=== PATIENT | female | born 1940 | race Caucasian/White ===

== ENCOUNTER → 2017-08-28 13:45 | Outpatient (CLI) | payer MEDICARE, OTHER, SELFPAY ==
--- NOTE | 2017-08-28 13:49 | BI_ITS ---
MAMMOGRAPHY - BILATERAL DIAGNOSTIC REASON FOR EXAM: Female, 77 years old. Right breast lump at 12:00 position of the breast. PERTINENT HISTORY: Sisters with breast cancer. Grandmother with breast cancer. TECHNIQUE: Digital bilateral breast kerry (3D mammographic acquisition) in the CC and MLO projections. 2-D mediolateral oblique (MLO) and craniocaudad (CC) views of both breasts were obtained. CAD: Full Field Digital Mammography with Computer Added Detection was performed. COMPARISON: Comparison is made with prior examination dated September 20, 2016. FINDINGS: Breast Composition: There are scattered areas of fibroglandular density. There are no dominant masses or suspicious calcifications. Multiple bilateral skin keratosis are seen. No other significant abnormalities are identified. There has been no significant change since the prior study. BI/DIAG MAMM W/CAD, BILAT IMPRESSION: Stable bilateral diagnostic mammogram. With the patient's history of a palpable abnormality in the right breast, targeted ultrasound is recommended. ASSESSMENT CATEGORY: BIRADS Category 0: Incomplete. Need additional imaging evaluation. A letter regarding these results will be sent to the patient by the facility within 30 days. Approximately 10% of breast cancers are not detected by mammography. A normal mammogram should not delay biopsy of a clinically suspicious abnormality. Electronically Signed: Freddy Page MD at 12:34 EDT Tel [phone], Service support ,
--- NOTE | 2017-08-28 13:49 | US_ITS ---
STUDY: ULTRASOUND BREAST - RIGHT REASON FOR EXAM: Female, 77 years old. Palpable lump in the right breast. TECHNIQUE: Axial and longitudinal images of the RIGHT breast were performed with a high resolution ultrasound transducer. COMPARISON: Comparison is made with prior mammogram done earlier in the day. FINDINGS: RIGHT Breast: The periareolar region of the right breast was examined by ultrasound. This corresponds to the palpable abnormality. There is a homogeneous fibroglandular tissue. No solid or cystic mass lesion is seen. US/Breast Limited Unilateral IMPRESSION: Unremarkable sonographic examination. ASSESSMENT CATEGORY: BIRADS Category 1: Negative. A letter regarding these results will be sent to the patient by the facility within 30 days. Electronically Signed: Freddy Page MD at 15:32 EDT Tel [phone], Service support ,
== END ==
PROVIDERS: Family Provider Internal Medicine; PCP Internal Medicine; Visit Provider Nurse Practitioner Women's Health
DX: N63.13 Unspecified lump in the right breast, lower outer quadrant (principal)
CPT/HCPCS: 76642; 77062; 77066; G0279

== ENCOUNTER 2018-05-14 18:18 | Observation (INO) | payer MEDICARE, OTHER, SELFPAY ==
[2018-05-14] VITALS (14 sets, daily range): BP systolic 133–202; BP diastolic 59–113; PULSE 68–89; RESP 13–24; TEMP 36.3–36.9; O2SAT 98–100; BMI 24.3; BMI 24.7; BMI 24.8
--- NOTE | 2018-05-14 18:29 | CT_ITS ---
STUDY: CT BRAIN WITHOUT CONTRAST REASON FOR EXAM: Female, 78 years old. Stroke RADIATION DOSAGE (If Supplied By Facility): CTDIvol = ( 44.99 ) mGy, DLP = ( 779.24 ) mGycm TECHNIQUE: Transaxial CT imaging of the brain was performed without administration of intravenous contrast material. Individualized dose optimization techniques were used for this CT. COMPARISON: Previous study of 09/16/2014 FINDINGS: Normal soft tissue structures. Normal calvarium. There is mild cerebral atrophy with widening of the extra-axial spaces and ventricular dilatation. Normal white matter tracts of the cerebral hemispheres. Normal basal ganglia and thalami. Normal brainstem. Normal cerebellum. There is no intracranial hemorrhage. There are no findings of an acute ischemic infarction. Normal visualized paranasal sinuses. CT/Brain/Head without Contrast IMPRESSION: Chronic involutional changes of the brain. There is no evidence of new infarct or intracranial hemorrhage. N.B. : The above information has been verbally conveyed by Kirby Andrews MD to Ruthie Carcamo MD, MD, on 05/14/2018 18:49:22 (ET). Electronically Signed: Kirby Andrews MD at 18:44 EST , Service support ,
--- NOTE | 2018-05-14 18:34 | EKG12_ITS ---
Test Reason : STROKE Blood Pressure : / mmHG Vent. Rate : 072 BPM Atrial Rate : 072 BPM P-R Int : 184 ms QRS Dur : 090 ms QT Int : 382 ms P-R-T Axes : 074 069 061 degrees QTc Int : 418 ms Normal sinus rhythm Normal ECG Confirmed by DEMETRIA BARNARD, BRITTON ([id number]), supervising film or videotape editor ANABEL ARVIZU ([id number]) on 05/16/2018 2:30:03 PM Referred By: CAYETANO Confirmed By:BRITTON AUGUSTIN MD
[2018-05-14 18:36] LABS: Bedside Glucose 83 mg/dL (70-110)
--- NOTE | 2018-05-14 18:45 | RAD_ITS ---
STUDY: X-RAY CHEST REASON FOR EXAM: Female, 78 years old. SOB. TECHNIQUE: Portable chest. COMPARISON: 12/20/2013. FINDINGS: Mild fibrotic changes are noted in the lung bases. The lungs are otherwise clear. There is no demonstrated pleural abnormality. Normal size heart. Normal mediastinum and shy. Normal visualized pulmonary arteries. There is atherosclerotic calcification of the aortic arch. There is a mild thoracolumbar scoliosis. Soft tissues and bony structures are otherwise unremarkable. RAD/Chest 1 View IMPRESSION: No acute process. Electronically Signed: Devora Snell MD at 19:31 EST Tel , Service support ,
--- NOTE | 2018-05-14 18:50 | CT_ITS ---
STUDY: CTA OF THE BRAIN REASON FOR EXAM: Female, 78 years old. Dizziness. Expressive aphasia since 5:00 PM. RADIATION DOSAGE (If Supplied By Facility): CTDIvol = ( 17.97 ) mGy, DLP = ( 596.29 ) mGycm TECHNIQUE: CT angiography was performed with a multi-detector CT scanner. Data acquisition was obtained from the skull base through the vertex following intravenous administration of ml of . MIP images were reconstructed from the axial data set. Post-processing of the angiographic images was performed, with multiplanar reformation and 3D reconstruction. Individualized dose optimization techniques were used for this CT. COMPARISON: CT of the brain, May 14, 2018. FINDINGS: Normal bilateral petrous carotid arteries. Normal right cavernous carotid artery with a normal supraclinoid bifurcation. Normal left cavernous carotid artery with a normal supraclinoid bifurcation. Normal right A1 segments of the anterior cerebral artery. Normal left A1 segments of the anterior cerebral artery. Normal intact anterior communicating artery (ACOM). Normal bilateral A2 segments of the anterior cerebral arteries. Normal right M1 and M2 segments of the middle cerebral arteries, with a normal M1 bifurcation. Normal left M1 and M2 segments of the middle cerebral arteries, with a normal M1 bifurcation. Normal right posterior communicating artery (PCOM). Normal left posterior communicating artery (PCOM). Normal basilar artery with a normal basilar bifurcation. The visualized bilateral superior cerebellar (SCA) arteries are normal. Normal bilateral P1, P2 and visualized P3 segments of the posterior cerebral arteries. There is no demonstrated aneurysm of the [place]. There is no demonstrated abnormality of the visualized brain. CT/CTA Head W/WO Contrast IMPRESSION: Normal [place] without a demonstrated aneurysm or hemodynamically significant stenosis. Electronically Signed: Alber Frederick DO at 19:43 EST Tel [phone], Service support ,
--- NOTE | 2018-05-14 18:50 | CT_ITS ---
STUDY: CTA NECK WITH AND WITHOUT CONTRAST REASON FOR EXAM: Female, 78 years old. Expressive dysphasia since 700 hours. Dizziness. RADIATION DOSAGE (If Supplied By Facility): CTDIvol = ( 17.97 ) mGy, DLP = ( 596.29 ) mGycm TECHNIQUE: CT angiography with multi-detector data acquisition was performed from the aortic arch to the skull base prior to and after intravenous administration of 100 ml of Isovue 370 contrast. MIP images were reconstructed from the axial data set. Post-processing of the angiographic images was performed, with multiplanar reformation and 3D reconstruction. Individualized dose optimization techniques were used for this CT. COMPARISON: CTA of the head, May 14, 2018. FINDINGS: AORTIC ARCH: There is atherosclerotic calcific plaque formation of the aortic arch and great vessels arising from the aortic arch, without a hemodynamically significant stenosis. There is a normal origin of the brachiocephalic, left common carotid, and left subclavian arteries. RIGHT CAROTID ARTERIES: Normal right common carotid artery (CCA). Normal right common carotid bulb. Normal origin of the right internal carotid (ICA) artery without a hemodynamically significant stenosis. Normal visualized cervical portion of the right internal carotid artery. Normal origin of the right external carotid artery (ECA). LEFT CAROTID ARTERIES: Normal left common carotid artery (CCA). Normal left common carotid bulb. Normal origin of the left internal carotid (ICA) artery without a hemodynamically significant stenosis. Normal visualized cervical portion of the left internal carotid artery. Normal origin of the left external carotid artery (ECA). VERTEBRAL ARTERIES: There is enhancement within the bilateral vertebral arteries with a small right vertebral artery, and a dominant left vertebral artery. Diffuse degenerative changes of the cervical spine. CT/CTA Neck W/WO Contrast IMPRESSION: Normal bilateral cervical carotid and vertebral arteries. Electronically Signed: Alber Frederick DO at 19:47 EST Tel [phone], Service support ,
--- NOTE | 2018-05-14 18:52 | ED.VISSUMM ---
- ER Visit Summary Date of Service: 05/14/18 Chief Complaint: Difficulty speaking History of Present Illness: The patient is a 78 F presenting stating that she had difficulty with speech. This occurred starting at 5 PM. It was witnessed by family. She states she had trouble getting words out, she states she knew what she wanted to say but could not get the words out. She had no slurred speech. She denies numbness or weakness. She states initially she had vision changes which have now resolved. She denies chest pain or shortness of breath. Physical Examination: Vitals are stable. Patient is afebrile. Alert no acute distress. HEENT exam is unremarkable. Neck is supple. Lungs are clear and equal bilaterally. Heart is regular rate and rhythm. Abdomen is soft nontender nondistended. Extremities are unremarkable. Skin is warm and dry. No focal neurologic deficit. NIH 0 Remainder of exam is unremarkable. Emergency Department Course and Treatment: Stroke team was activated on patient arrival. She was taken immediately to CT head. When she returned back to the ED her symptoms had resolved. Her NIH is 0. CT head shows no acute process. EKG is sinus rate of 72 with no acute ischemic changes. Discussed with Dr. Burnett. He recommends CTA head and neck. CTA head and neck are unremarkable. CBC, chemistries unremarkable. INR 1.0. Troponin is negative. Will discuss with the hospitalist for observation. Disposition: Observation Impression: TIA This note was generated with [employer] dictation software. It may contain incorrect words, spelling, and punctuation that were not noted in review of the chart prior to signing ED Disposition - Plan for ED Patient: Chief Complaint: Neuro S/Sx Referrals: Zane Potter MD [Primary Care Provider] -
[2018-05-14 18:53] LABS: Absolute Lymphocyte Count 1.29 X10^3/ul (0.83-4.51); Absolute Neutrophil Count 3.6 X10^3/uL (2.0-7.7); Basophil# 0.04 X10^3/uL; Basophil% 0.7 % (0-1); Eosinophil# 0.16 X10^3/uL; Eosinophils% 2.9 % (0-5); Hematocrit 37.2 % (37-47); Hemoglobin 12.2 g/dl (12.0-15.0); Lymphocyte # 1.29 X10^3/ul (4.0); Lymphocyte % 23.5 % (19-41); Mean Corp Hgb Conc 32.8 g/gl (32-36); Mean Corpuscular Hgb 31.9 pg (27.0-32.0); Mean Corpuscular Volume 97.4 fL (81-99); Mean Platelet Vol. 9.3 fl (6.2-12.0); Monocyte# 0.41 X10^3/uL; Monocyte% 7.5 % (0-10); Neutrophil # 3.59 X10^3/uL (2.7-7.7); Neutrophil % 65.4 % (47-70); Platelet Count 208 K/mm3 (150-450); RBC Distribution Width CV 14.5 % (11.6-14.6); RBC Distribution Width SD 51.6 fl (35.1-43.9); Red Blood Count 3.82 M/mm3 (4.2-5.4); White Blood Count 5.5 K/mm3 (4.4-11.0)
[2018-05-14 18:54] LABS: POSITIVE COUNT NO; POSITIVE DIFFERENTIAL NO; POSITIVE MORPHOLOGY NO
[2018-05-14 19:05] LABS: Anion Gap 9 (5-15); BUN 25 mg/dL (7-18); BUN/Creat Ratio 30.2 RATIO (10-20); Calcium,Total 8.9 mg/dL (8.5-10.1); Chloride 104 mmol/L (98-107); Creatinine, Serum 0.83 mg/dL (0.55-1.02); EST Glomerular Filtration Rate 71 mL/min (>60); Est Glom Filt Rate - Afr Amer 86 mL/min (>60); Estimated Creatinine Clearance 48.24 ml/min; Glucose 83 mg/dL (74-106); Potassium 3.7 mmol/L (3.5-5.1); Sodium Level 138 mmol/L (136-145)
[2018-05-14 19:13] LABS: Prothrombin Time (Protime)PT. 12.7 SECONDS (11.7-14.9)
[2018-05-14 19:14] LABS: Partial Thromboplast Time 26.4 Seconds (24.1-36.2)
[2018-05-14] MEDS: Aspirin 325 MG Tablet PO (20:15)
--- NOTE | 2018-05-14 20:36 | PCM.HP.STD ---
Problem List (1) Stroke-like symptoms Status: Acute History of Present Illness Date of Admission: 05/14/18 Chief Complaint: Blurry vision and difficulty with talking The patient is a 78 year old F with a significant history of hypothyroidism; rheumatoid arthritis; and BPPV who presented because of blurry vision that started about 4 hours prior to presentation. Associated with her symptoms was difficulty talking. At emergency department as a stroke alert was called. When the patient returned from CT her NIH scale was 0. She denies any focal weakness. At the emergency department CT and CTA of the head and neck was done. Emergency department doctor talked to a neurologist. Per emergency department doctor the neurologist wanted patient to be started on Plavix. 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) Benign positional vertigo (Chronic) Rheumatoid arthritis (Chronic) Medical History: Medical History (Last Reviewed 05/14/18 @ 22:36 by Stefan Dey MD) Stress incontinence (Chronic) N39.3 Hypothyroidism (Chronic) E03.9 Allergies ANTIVIRAL Adverse Reaction (Uncoded 09/16/14 12:23) severe diarrhea SEVERE DIARRHEA Home Medications: Ambulatory Orders Medication Instructions Recorded Oxybutynin [Ditropan] 5 mg PO DAILY 12/20/13 Levothyroxine [Synthroid] 100 mcg PO SUTUWEFRSA 12/21/13 abatacept (with maltose) 250 mg 250 mg IV QMONTH ea 08/26/17 intravenous solution meloxicam 7.5 mg tablet 7.5 mg PO QHS 08/26/17 Cholecalciferol (VIT D3) [Vitamin 1,000 unit PO QHS 05/14/18 D] Leucovorin Calcium 5 mg PO MO 05/14/18 Levothyroxine Sodium 150 mcg PO MOTH 05/14/18 Methotrexate Sodium [Methotrexate] 15 mg PO AHUJA 05/14/18 Multivitamin with Minerals 1 tab PO QHS 05/14/18 [Multiple Vitamin] Surgical History: Surgical History (Last Reviewed 05/14/18 @ 22:36 by Stefan Dey MD) S/P breast biopsy Z98.890 bilateral S/P cholecystectomy Z90.49 S/P colon resection Z90.49 S/P hernia repair Z98.890, Z87.19 S/P spinal surgery Z98.890 x1 to remove cyst, disc repair x1 Status post left hip replacement Z96.642 Status post left knee replacement Z96.652 Surgical History: - Psychiatric History: No pertinent psych hx 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 Denies: Head Aches, Sinus Congestion, Sinus Drainage Cardiovascular: Denies: Chest Pain, Palpitations Respiratory: Denies: Cough, Shortness of breath at rest, Sputum production Gastrointestinal: Denies: Abdominal Pain, Nausea, Vomiting Genitourinary: Denies: Dysuria Musculoskeletal: Denies: Joint Pain, Joint Tenderness Skin: Denies: Rash, Wounds Neurological: Reports: Blurred vision. Denies: Focal weakness, Numbness, Tingling Psychiatric: Denies: Anxiety, Depression, Homicidal Ideations, Suicidal Ideations Hematologic/ Lymphatic: Denies: Easy Bruising, Easy Bleeding VTE Information - Inpt Only VTE Present on Admission: No VTE Mechan Device Prophylaxis: None VTE Pharm Prophylaxis ordered?: Yes Patient Problems: Active and Suspected Problems (Last Reviewed 05/14/18 @ 22:36 by Stefan Dey MD) Stroke-like symptoms (Acute) - Physical Exam General: Alert, Oriented x3, Cooperative HEENT: Atraumatic, PERRLA, EOMI, Normocephalic Neck: Supple, No JVD, Negative Carotid Bruits Lungs: Clear to auscultation, Normal air movement Cardiovascular: Regular rate, No murmurs Abdomen: Bowel Sounds Present, Soft, Non Tender Extremities: No edema, Capillary Refill Less than 3 Seconds Skin: No rashes, No breakdown Musculoskeletal: No Tenderness to Palpation of Joints or Extremities Neurological: Cranial nerves II-XII grossly intact Psych/Mental Status: Normal Affect, Appropriate Vital Signs Temp Pulse Resp BP Pulse Ox 98.3 F 83 16 185/83 H 100 05/14/18 18:34 05/14/18 20:00 05/14/18 20:00 05/14/18 20:00 05/14/18 20:00 Oxygen Flow Rate (L/min) 2 Oxygen Delivery Method Nasal Cannula Weight: 64.2 kg Body Mass Index (BMI) 24.3 Finger Stick Blood Glucose 83 Laboratory Tests Past 24 Hrs 05/14/18 05/14/18 05/14/18 18:30 18:30 18:30 WBC 5.5 RBC 3.82 L Hgb 12.2 Hct 37.2 MCV 97.4 MCH 31.9 MCHC 32.8 RDW 14.5 RDW Differential 51.6 H Plt Count 208 MPV 9.3 Immature Gran % (Auto) 0.000 Neut % (Auto) 65.4 Lymph % (Auto) 23.5 Antelope % (Auto) 7.5 Eos % (Auto) 2.9 Baso % (Auto) 0.7 Absolute Neuts (auto) 3.6 Absolute Lymphs (auto) 1.29 Total Counted Not Reportable PT 12.7 INR 1.0 APTT 26.4 Sodium 138 Potassium 3.7 Chloride 104 Carbon Dioxide 25.0 Anion Gap 9 BUN 25 H Creatinine 0.83 Estim Creat Clear Calc 48.24 Est GFR (MDRD) Af Amer 86 Est GFR (MDRD) Non-Af 71 BUN/Creatinine Ratio 30.2 H Glucose 83 Calcium 8.9 Troponin I < 0.015 POC Glucose 05/14/18 18:32 POC Glucose 83 Assessment/Plan All Active Problems (Last Reviewed 05/14/18 @ 22:36 by Stefan Dey MD) Stroke-like symptoms (Acute) The patient is a 78 year old F with a significant history of hypothyroidism; rheumatoid arthritis; and BPPV who presented because of blurry vision that started about 4 hours prior to presentation and with a negative CT/CTA of head and neck; and an NIH scale of [address]/CTA head and neck consistent with stroke-like symptoms. Strokelike symptoms NINDS NIH Scale was 0 CT/CTA of the head was unremarkable. Her glucose on admission was 83. Physical therapy, occupational therapy and speech therapy to work with patient. N.p.o. until bedside swallow eval. Patient received aspirin 324 mg at emergency department. Daily aspirin. Per neurologist recommendation will start patient on Plavix. High intensity statin ordered Lipid profile and A1c ordered. Permissive hypertension. Control blood pressure with labetalol for systolic blood pressure of more than 220 or diastolic blood pressure of more than 120. -Permissive HTN for 24 hrs, aba therapist goal BP < 120/80 mmHg . MRI of the brain ordered Echocardiogram ordered. Elevated blood pressure without diagnosis of hypertension. High systolic blood pressure is 202; and a higher diastolic blood pressure is 105. Patient denies any history of hypertension. Her elevated blood pressure is likely due to anxiety or from autonomic regulation to perfuse ischemic penumbra. Labetalol as needed to maintain blood pressure and parameters stated above. Hypothyroidism Synthroid continued Rheumatoid arthritis Methotrexate and leucovorin continued. Stress incontinence Oxybutynin continued DVT prophylaxis Heparin subcutaneous ordered. Code Visit OBSV E&M: 16917 Initial observation care L3
[2018-05-14 23:12] LABS: Hemoglobin A1c 5.2 % (4.2-6.3)
[2018-05-14] MEDS: Atorvastatin Calcium 80 MG Tablet PO (23:28)
[2018-05-14] MEDS: Heparin Injection (Vial) 5,000 UNIT/ML VIAL 5000 UNIT SC (23:28)
[2018-05-15] VITALS (7 sets, daily range): BP systolic 125–145; BP diastolic 52–63; PULSE 61–73; RESP 16–18; TEMP 36.7–36.8; O2SAT 96–99; BMI 24.7
[2018-05-15] MEDS: 0.9% NaCl Peripheral Flush Adult/Peds IV (06:30)
[2018-05-15] MEDS: Levothyroxine 150 MCG Tablet PO (06:30)
[2018-05-15 07:09] LABS: Anion Gap 8 (5-15); BUN 18 mg/dL (7-18); BUN/Creat Ratio 26.1 RATIO (10-20); Calcium,Total 8.6 mg/dL (8.5-10.1); Chloride 105 mmol/L (98-107); Cholesterol 148 mg/dL (200); Creatinine, Serum 0.69 mg/dL (0.55-1.02); EST Glomerular Filtration Rate 87 mL/min (>60); Est Glom Filt Rate - Afr Amer 106 mL/min (>60); Estimated Creatinine Clearance 38.35 ml/min; Glucose 86 mg/dL (74-106); High Density Lipoprotein 53 mg/dL; Sodium Level 141 mmol/L (136-145); Triglycerides 35 mg/dL; Very Low Density Lipoprotein 7 mg/dL (5-40)
[2018-05-15] MEDS: LORazepam 2 MG/ML Syringe 1 MG IV ×2 (08:02→09:32)
[2018-05-15] MEDS: Clopidogrel Bisulfate 75 MG Tablet PO (08:04)
[2018-05-15] MEDS: Aspirin 81 MG TAB.CHEW PO (08:04)
[2018-05-15] MEDS: Meloxicam 7.5 MG Tablet PO (08:04)
[2018-05-15] MEDS: Multivitamins,Ther W-Minerals Tablet 1 TABLET PO (08:04)
[2018-05-15] MEDS: Heparin Injection (Vial) 5,000 UNIT/ML VIAL 5000 UNIT SC (08:05)
--- NOTE | 2018-05-15 08:05 | MRI_ITS ---
STUDY: MRI BRAIN WITHOUT CONTRAST REASON FOR EXAM: Female, 78 years old. Aphasia for one and a half hours. TECHNIQUE: Standardized multiplanar fat and water weighted pulse sequences were obtained. COMPARISON: CT of the head dated May 14, 2018. FINDINGS: There is mild cerebral atrophy with widening of the extra-axial spaces and ventricular dilatation. Normal white matter tracts of the supratentorial brain. There is confluent periventricular hyperintensity cloaking the lateral ventricles, consistent with periventricular leukoaraiosis. There is no evidence for recent intracranial ischemia or other cause of cytotoxic edema on diffusion weighted imaging (DWI). Normal T2* images of the brain without demonstrated susceptibility artifact. There is no demonstrated hemosiderin stain. Normal bilateral basal ganglia. Normal thalami. There is no extra-axial fluid accumulation. Normal flow voids within the major intracranial circulation suggesting patency by spin echo criteria. There is ectatic tortuosity of the cavernous carotid arteries. There is increased CSF within the sella and flattening of the pituitary gland consistent with an empty sellar syndrome. Normal infundibular stalk, hypothalamus, and optic chiasm. Normal tectal plate and pineal gland. Normal midbrain, deb and medulla. Normal cerebellum. There are large basal cisterns. Normal bilateral temporal bones. Normal bilateral internal auditory canals. There are bilateral ocular lens implants with otherwise normal intraorbital contents. Normal visualized paranasal sinuses. Normal calvarium and skull base. Normal visualized soft tissue structures. Normal visualized upper cervical spine. MRI/Brain without Contrast IMPRESSION: 1. Mild involutional changes of the brain, as described above. 2. No MR evidence for acute infarct. Electronically Signed: Karmen Brown MD at 12:00 EST , Service support ,
--- NOTE | 2018-05-15 14:14 | PCM.CONS.GEN ---
Problem List (1) TIA (transient ischemic attack) Status: Acute Reason for Consult Date of Consultation: 05/15/18 Reason for Consultation: Probable TIA History of Present Illness: The patient is a 78 year old F with PMH RA, hypothyroidism, BPPV admitted with speech disturbances, blurred vision and facial droop. Per patient yesterday (05/14/18) around 5 PM patient started having vision disturbances, difficulty in getting her words out, family noticed some facial droop on the left side, was brought to the ED, no focal motor weakness, symptoms improved after she got the CT head done, NIHSS was 0 in the ED, symptoms lasted for about 11/2 hr, patient denies any ALMONTE, visual disturbances, focal motor weakness, dizziness or sensory loss. Lives with , denies any falls, does not need any assistance for her ADLs, and does drive. Does not take ASA at baseline. [] 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) Benign positional vertigo (Chronic) Rheumatoid arthritis (Chronic) Medical History: Medical History (Last Reviewed 05/14/18 @ 22:36 by Stefan Dey MD) Stress incontinence (Chronic) N39.3 Hypothyroidism (Chronic) E03.9 Allergies ANTIVIRAL Adverse Reaction (Uncoded 09/16/14 12:23) severe diarrhea SEVERE DIARRHEA Home Medications: Ambulatory Orders Medication Instructions Recorded Oxybutynin [Ditropan] 5 mg PO DAILY 12/20/13 Levothyroxine [Synthroid] 100 mcg PO SUTUWEFRSA 12/21/13 abatacept (with maltose) 250 mg 250 mg IV QMONTH ea 08/26/17 intravenous solution meloxicam 7.5 mg tablet 7.5 mg PO QHS 08/26/17 Cholecalciferol (VIT D3) [Vitamin 1,000 unit PO QHS 05/14/18 D] Leucovorin Calcium 5 mg PO MO 05/14/18 Levothyroxine Sodium 150 mcg PO MOTH 05/14/18 Methotrexate Sodium [Methotrexate] 15 mg PO AHUJA 05/14/18 Multivitamin with Minerals 1 tab PO QHS 05/14/18 [Multiple Vitamin] Surgical History: Surgical History (Last Reviewed 05/14/18 @ 22:36 by Stefan Dey MD) S/P breast biopsy Z98.890 bilateral S/P cholecystectomy Z90.49 S/P colon resection Z90.49 S/P hernia repair Z98.890, Z87.19 S/P spinal surgery Z98.890 x1 to remove cyst, disc repair x1 Status post left hip replacement Z96.642 Status post left knee replacement Z96.652 Surgical History: - Psychiatric History: No pertinent psych hx 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: No pertinent NEWSPAPER MANAGING EDITOR history Lives: Spouse/ Significant Other Smoking Status: Never smoker Tobacco Use: Non-smoker Alcohol: Occasional - Drink a glass of 1-2/day on weekends Drugs: None - *Family History Maternal Family History: Family History (Last Reviewed 05/14/18 @ 22:36 by Stefan Dey MD) Sister Breast cancer Heart disease Father Heart disease History Items: Heart Disease Review of Systems Constitutional: Reports: - - complete ROS negative except as documented in HPI, - Patient Problems: Active and Suspected Problems (Last Reviewed 05/14/18 @ 22:36 by Stefan Dey MD) Stroke-like symptoms (Acute) TIA (transient ischemic attack) (Acute) - Physical Exam General: Alert HEENT: Normocephalic Neck: Supple Lungs: Normal air movement Cardiovascular: Normal S1, Normal S2 Abdomen: Bowel Sounds Present Extremities: No cyanosis Neurological: - - consious, alert, AoAx 3, CN 2-12 grossly intact, power 5/5 all 4 extremities, no sensory loss, no cerebellar signs, gait deferred, Reflexes + B/L B/S/T/K/A. NIHSS 0 at present, mRS 0 at baseline Psych/Mental Status: Normal Affect Vital Signs Temp Pulse Resp BP Pulse Ox 98.3 F 66 18 139/56 H 96 05/15/18 10:25 05/15/18 11:05 05/15/18 10:25 05/15/18 10:25 05/15/18 11:48 Oxygen Flow Rate (L/min) 2 Oxygen Delivery Method Room Air Weight: 63.4 kg Body Mass Index (BMI) 24.7 Finger Stick Blood Glucose 83 Intake and Output for Last 24 Hours 05/13/18 05/14/18 05/15/18 23:59 23:59 23:59 Intake Total 60 / 60 480 / 480 Balance 60 / 60 480 / 480 Laboratory Tests Past 24 Hrs 05/14/18 05/14/18 05/14/18 18:30 18:30 18:30 WBC 5.5 RBC 3.82 L Hgb 12.2 Hct 37.2 MCV 97.4 MCH 31.9 MCHC 32.8 RDW 14.5 RDW Differential 51.6 H Plt Count 208 MPV 9.3 Immature Gran % (Auto) 0.000 Neut % (Auto) 65.4 Lymph % (Auto) 23.5 [place] % (Auto) 7.5 Eos % (Auto) 2.9 Baso % (Auto) 0.7 Absolute Neuts (auto) 3.6 Absolute Lymphs (auto) 1.29 Total Counted Not Reportable PT 12.7 INR 1.0 APTT 26.4 Sodium 138 Potassium 3.7 Chloride 104 Carbon Dioxide 25.0 Anion Gap 9 BUN 25 H Creatinine 0.83 Estim Creat Clear Calc 48.24 Est GFR (MDRD) Af Amer 86 Est GFR (MDRD) Non-Af 71 BUN/Creatinine Ratio 30.2 H Glucose 83 Hemoglobin A1c Calcium 8.9 Troponin I < 0.015 Triglycerides Cholesterol LDL Cholesterol VLDL Cholesterol HDL Cholesterol 05/14/18 05/15/18 18:30 05:50 WBC RBC Hgb Hct MCV MCH MCHC RDW RDW Differential Plt Count MPV Immature Gran % (Auto) Neut % (Auto) Lymph % (Auto) [place] % (Auto) Eos % (Auto) Baso % (Auto) Absolute Neuts (auto) Absolute Lymphs (auto) Total Counted PT INR APTT Sodium 141 Potassium 4.0 Chloride 105 Carbon Dioxide 28.0 Anion Gap 8 BUN 18 Creatinine 0.69 Estim Creat Clear Calc 38.35 Est GFR (MDRD) Af Amer 106 Est GFR (MDRD) Non-Af 87 BUN/Creatinine Ratio 26.1 H Glucose 86 Hemoglobin A1c 5.2 Calcium 8.6 Troponin I Triglycerides 35 Cholesterol 148 LDL Cholesterol 88 VLDL Cholesterol 7 HDL Cholesterol 53 POC Glucose 05/14/18 18:32 POC Glucose 83 Assessment/Plan All Active Problems (Last Reviewed 05/14/18 @ 22:36 by Stefan Dey MD) Stroke-like symptoms (Acute) TIA (transient ischemic attack) (Acute) The patient is a 78 year old F with PMH RA, hypothyroidism, BPPV admitted with speech disturbances, blurred vision and facial droop. Per patient yesterday (05/14/18) around 5 PM patient started having vision disturbances, difficulty in getting her words out, family noticed some facial droop on the left side, was brought to the ED, no focal motor weakness, symptoms improved after she got the CT head done, NIHSS was 0 in the ED, symptoms lasted for about 11/2 hr, patient denies any ALMONTE, visual disturbances, focal motor weakness, dizziness or sensory loss. Lives with , denies any falls, does not need any assistance for her ADLs, and does drive. Does not take ASA at baseline. Impression Probable TIA Plan -MRI brain -reported to show nothing acute -CTA head/neck-no hemodynamically significant stenosis or occlusion -ASA 81 mg PO once daily and Plavix 75 mg PO once daily. Dual AP for 3 weeks, then single AP. Bleeding risks discussed in detail -Lipitor 40 mg PO once daily q hs -TTE-EF 55-60%, normal LA size -LDL-88 -Bam1w-4.2 -Goal BP < 130/80 mmHg and goal Hba1c < 7% -Stroke risk factors discussed and stroke education provided -recommend 30 day event recorder -PT/OT and ST -GI/DVT prophylaxis -Fall precautions -Further medical management per hospitalist team -Follow up with Neurology in 4 weeks -Please call with questions if any -Thank you for allowing us to participate in patient's care and management Code Visit Inpatient E&M: [id number] Init Hosp L3
--- NOTE | 2018-05-15 14:46 | DCINST_ITS ---
- Discharge Diagnoses Current Active Problems: Current Active and Chronic Problems (Last Reviewed 05/14/18 @ 22:36 by Stefan Dey MD) Stroke-like symptoms (Acute) TIA (transient ischemic attack) (Acute) You will use the following diet at home:: No restrictions Discharge Activity: Return to Normal Activity Call your doctor if you observe: Shortness of breath, Dizziness, Fainting spells, Chest pain Allergies/Adverse Reactions: Allergies ANTIVIRAL Adverse Reaction (Uncoded 09/16/14 12:23) severe diarrhea SEVERE DIARRHEA Medications to take at Discharge Oxybutynin [Ditropan] 5 mg PO DAILY 12/20/13 Levothyroxine [Synthroid] 100 mcg PO SUTUWEFRSA 12/21/13 abatacept (with maltose) 250 mg intravenous solution 250 mg IV QMONTH ea 08/26/17 Cholecalciferol (VIT D3) [Vitamin D3] 1,000 unit PO QHS 05/14/18 Leucovorin Calcium 5 mg PO MO 05/14/18 Levothyroxine Sodium 150 mcg PO MOTH 05/14/18 Methotrexate Sodium [Methotrexate] 15 mg PO AHUJA 05/14/18 Multivitamin with Minerals [Multiple Vitamin] 1 tab PO QHS 05/14/18 Aspirin [Aspirin, Baby] 81 mg PO DAILY@0800 #30 tab.chew 05/15/18 Atorvastatin Calcium 40 mg PO QHS #30 tablet 05/15/18 Clopidogrel Bisulfate [Plavix] 75 mg PO DAILY #30 tablet 05/15/18 The following prescriptions were given: Aspirin [Aspirin, Baby] 81 mg PO DAILY@0800 #30 tab.chew Atorvastatin Calcium 40 mg PO QHS #30 tablet Clopidogrel Bisulfate [Plavix] 75 mg PO DAILY #30 tablet Orders to be completed after discharge: 30-Day Event Recorder [[facility]] Location: None Selected Primary Care Physician: Zane Potter MD [Primary Care Provider] - Please follow up with your Primary Care Physician in: 1 Week Test Results: Test results from this visit will be discussed in further detail at your follow- up appointment, if applicable. Please Follow Up With: Beto Burnett MD When: 4 Weeks Proposed Discharge Date: 05/15/18
--- NOTE | 2018-05-15 14:47 | PCM.DC.SUM ---
Discharge Date and Diagnosis Date of Admission: 05/14/18 Date of Discharge: 05/15/18 - Primary Discharge Diagnosis Active and Suspected Problems (Last Reviewed 05/14/18 @ 22:36 by Stefan Dey MD) 1. Probable TIA - Secondary Discharge Diagnosis Chronic Problems (Last Reviewed 05/14/18 @ 22:36 by Stefan Dey MD) Stress incontinence (Chronic) Hypothyroidism (Chronic) Osteoarthritis (arthritis due to wear and tear of joints) (Chronic) Benign positional vertigo (Chronic) Rheumatoid arthritis (Chronic) Hospital Course and Treatment Imaging Results: Diagnostic Data Brain CT 05/14/18 18:29 IMPRESSION: Chronic involutional changes of the brain. There is no evidence of new infarct or intracranial hemorrhage. N.B. : The above information has been verbally conveyed by Kirby Andrews MD to Ruthie Carcamo MD, MD, on 05/14/2018 18:49:22 (ET). Electronically Signed: Kirby Andrews MD at 18:44 EST , Service support , Chest X-Ray 05/14/18 18:45 IMPRESSION: No acute process. Electronically Signed: Devora Snell MD at 19:31 EST Tel , Service support , Head CTA 05/14/18 18:50 IMPRESSION: Normal [place] without a demonstrated aneurysm or hemodynamically significant stenosis. Electronically Signed: Alber Frederick DO at 19:43 EST Tel [phone], Service support , Neck CTA 05/14/18 18:50 IMPRESSION: Normal bilateral cervical carotid and vertebral arteries. Electronically Signed: Alber Frederick DO at 19:47 EST Tel [phone], Service support , Brain MRI 05/15/18 08:05 IMPRESSION: 1. Mild involutional changes of the brain, as described above. 2. No MR evidence for acute infarct. Electronically Signed: Karmen Brown MD at 12:00 EST , Service support , Dr. Burnett- Neurology Operations: None Procedures: 2-D Echocardiogram Summary of Care Provided: The patient is a 78 year old F admitted 05/14/18 due to blurred vision and speech difficulty. She has a past medical history of hypothyroidism, rheumatoid arthritis, BPPV, osteoarthritis, stress incontinence. MRI of brain negative for acute infarct. Neck CTA with normal bilateral carotid and vertebral arteries. Patient evaluated by neurology and suspected to have TIA. She will continue dual antiplatelet therapy with aspirin and Plavix for 3 weeks. Discontinue home meloxicam regimen. Atorvastatin 40 mg p.o. nightly. 30-day event recorder at discharge. Follow-up with neurology in 4 weeks. Echocardiogram showed an EF of 55-60%, mild mitral valve insufficiency, RVSP estimated to be 42-47 mmHg. Patient's visual and speech disturbances have resolved. Follow-up with primary care physician in 1 week. General: Alert, Oriented x3, Cooperative HEENT: Atraumatic, PERRLA, EOMI, Normocephalic Neck: Supple, No JVD, Negative Carotid Bruits Lungs: Clear to auscultation, Normal air movement Cardiovascular: Regular rate, regular rhythm, no murmurs Abdomen: Bowel Sounds Present, Soft, Non Tender Extremities: No edema, Capillary Refill Less than 3 Seconds Skin: No rashes, No breakdown Musculoskeletal: No Tenderness to Palpation of Joints or Extremities Neurological: Cranial nerves II-XII grossly intact Psych/Mental Status: Normal Affect, Appropriate Patient seen and examined prior to discharge. Physical assessment as noted above. Patient is stable for discharge with follow up recommendations as noted above. This patient was seen by RICHIE Coello under the supervision of Dr. Vicente. - Physical Exam Vital Signs Temp Pulse Resp BP Pulse Ox 98.3 F 66 18 139/56 H 96 05/15/18 10:25 05/15/18 11:05 05/15/18 10:25 05/15/18 10:25 05/15/18 11:48 Oxygen Flow Rate (L/min) 2 Oxygen Delivery Method Room Air Weight: 139 lb 12.369 oz Body Mass Index (BMI) 24.7 Finger Stick Blood Glucose 83 Intake and Output for Last 24 Hours 05/13/18 05/14/18 05/15/18 23:59 23:59 23:59 Intake Total 60 / 60 480 / 480 Balance 60 / 60 480 / 480 Laboratory Tests Past 24 Hrs 05/14/18 05/14/18 05/14/18 18:30 18:30 18:30 WBC 5.5 RBC 3.82 L Hgb 12.2 Hct 37.2 MCV 97.4 MCH 31.9 MCHC 32.8 RDW 14.5 RDW Differential 51.6 H Plt Count 208 MPV 9.3 Immature Gran % (Auto) 0.000 Neut % (Auto) 65.4 Lymph % (Auto) 23.5 [place] % (Auto) 7.5 Eos % (Auto) 2.9 Baso % (Auto) 0.7 Absolute Neuts (auto) 3.6 Absolute Lymphs (auto) 1.29 Total Counted Not Reportable PT 12.7 INR 1.0 APTT 26.4 Sodium 138 Potassium 3.7 Chloride 104 Carbon Dioxide 25.0 Anion Gap 9 BUN 25 H Creatinine 0.83 Estim Creat Clear Calc 48.24 Est GFR (MDRD) Af Amer 86 Est GFR (MDRD) Non-Af 71 BUN/Creatinine Ratio 30.2 H Glucose 83 Hemoglobin A1c Calcium 8.9 Troponin I < 0.015 Triglycerides Cholesterol LDL Cholesterol VLDL Cholesterol HDL Cholesterol 05/14/18 05/15/18 18:30 05:50 WBC RBC Hgb Hct MCV MCH MCHC RDW RDW Differential Plt Count MPV Immature Gran % (Auto) Neut % (Auto) Lymph % (Auto) [place] % (Auto) Eos % (Auto) Baso % (Auto) Absolute Neuts (auto) Absolute Lymphs (auto) Total Counted PT INR APTT Sodium 141 Potassium 4.0 Chloride 105 Carbon Dioxide 28.0 Anion Gap 8 BUN 18 Creatinine 0.69 Estim Creat Clear Calc 38.35 Est GFR (MDRD) Af Amer 106 Est GFR (MDRD) Non-Af 87 BUN/Creatinine Ratio 26.1 H Glucose 86 Hemoglobin A1c 5.2 Calcium 8.6 Troponin I Triglycerides 35 Cholesterol 148 LDL Cholesterol 88 VLDL Cholesterol 7 HDL Cholesterol 53 POC Glucose 05/14/18 18:32 POC Glucose 83 Discharge Diet: No Restrictions Discharge Activity: Return to Normal Activity Call your doctor if you observe: Shortness of breath, Dizziness, Fainting spells, Chest pain Home Medications: Medications to take at Discharge Oxybutynin [Ditropan] 5 mg PO DAILY 12/20/13 Levothyroxine [Synthroid] 100 mcg PO SUTUWEFRSA 12/21/13 abatacept (with maltose) 250 mg intravenous solution 250 mg IV QMONTH ea 08/26/17 Cholecalciferol (VIT D3) [Vitamin D3] 1,000 unit PO QHS 05/14/18 Leucovorin Calcium 5 mg PO MO 05/14/18 Levothyroxine Sodium 150 mcg PO MOTH 05/14/18 Methotrexate Sodium [Methotrexate] 15 mg PO AHUJA 05/14/18 Multivitamin with Minerals [Multiple Vitamin] 1 tab PO QHS 05/14/18 Aspirin [Aspirin, Baby] 81 mg PO DAILY@0800 #30 tab.chew 05/15/18 Atorvastatin Calcium 40 mg PO QHS #30 tablet 05/15/18 Clopidogrel Bisulfate [Plavix] 75 mg PO DAILY #30 tablet 05/15/18 Following Prescrptions Were Given to Patient: Aspirin [Aspirin, Baby] 81 mg PO DAILY@0800 #30 tab.chew Atorvastatin Calcium 40 mg PO QHS #30 tablet Clopidogrel Bisulfate [Plavix] 75 mg PO DAILY #30 tablet Other Amb Orders: 30-Day Event Recorder [[facility]] Location: None Selected Primary Care Physician: Zane Potter MD [Primary Care Provider] - Please follow up with your Primary Care Physician in: 1 Week Please Follow Up With: Beto Burnett MD When: 4 Weeks Disposition: Home Minutes spent on discharge:: 35 Patient Condition:: Stable Medical Necessity - Tobacco Use Smoking Status: Never smoker Tobacco Use: Non-smoker Meaningful Use Info Meaningful Use Diagnoses (Choose all that apply): None applicable
--- NOTE | 2018-05-15 14:58 | DS.PCM_ITS ---
Discharge Date and Diagnosis Date of Admission: 05/14/18 Date of Discharge: 05/15/18 - Primary Discharge Diagnosis Active and Suspected Problems (Last Reviewed 05/14/18 @ 22:36 by Stefan Dey MD) 1. Probable TIA - Secondary Discharge Diagnosis Chronic Problems (Last Reviewed 05/14/18 @ 22:36 by Stefan Dey MD) Stress incontinence (Chronic) Hypothyroidism (Chronic) Osteoarthritis (arthritis due to wear and tear of joints) (Chronic) Benign positional vertigo (Chronic) Rheumatoid arthritis (Chronic) Hospital Course and Treatment Imaging Results: Diagnostic Data Brain CT 05/14/18 18:29 IMPRESSION: Chronic involutional changes of the brain. There is no evidence of new infarct or intracranial hemorrhage. N.B. : The above information has been verbally conveyed by Kirby Andrews MD to Ruthie Carcamo MD, MD, on 05/14/2018 18:49:22 (ET). Electronically Signed: Kirby Andrews MD at 18:44 EST , Service support , Chest X-Ray 05/14/18 18:45 IMPRESSION: No acute process. Electronically Signed: Devora Snell MD at 19:31 EST Tel , Service support , Head CTA 05/14/18 18:50 IMPRESSION: Normal [place] without a demonstrated aneurysm or hemodynamically significant stenosis. Electronically Signed: Alber Frederick DO at 19:43 EST Tel [phone], Service support , Neck CTA 05/14/18 18:50 IMPRESSION: Normal bilateral cervical carotid and vertebral arteries. Electronically Signed: Alber Frederick DO at 19:47 EST Tel [phone], Service support , Brain MRI 05/15/18 08:05 IMPRESSION: 1. Mild involutional changes of the brain, as described above. 2. No MR evidence for acute infarct. Electronically Signed: Karmen Brown MD at 12:00 EST , Service support , Dr. Burnett- Neurology Operations: None Procedures: 2-D Echocardiogram Summary of Care Provided: The patient is a 78 year old F admitted 05/14/18 due to blurred vision and speech difficulty. She has a past medical history of hypothyroidism, rheumatoid arthritis, BPPV, osteoarthritis, stress incontinence. MRI of brain negative for acute infarct. Neck CTA with normal bilateral carotid and vertebral arteries. Patient evaluated by neurology and suspected to have TIA. She will continue dual antiplatelet therapy with aspirin and Plavix for 3 weeks. Discontinue home meloxicam regimen. Atorvastatin 40 mg p.o. nightly. 30-day event recorder at discharge. Follow-up with neurology in 4 weeks. Echocardiogram showed an EF of 55-60%, mild mitral valve insufficiency, RVSP estimated to be 42-47 mmHg. Patient's visual and speech disturbances have resolved. Follow-up with primary care physician in 1 week. General: Alert, Oriented x3, Cooperative HEENT: Atraumatic, PERRLA, EOMI, Normocephalic Neck: Supple, No JVD, Negative Carotid Bruits Lungs: Clear to auscultation, Normal air movement Cardiovascular: Regular rate, regular rhythm, no murmurs Abdomen: Bowel Sounds Present, Soft, Non Tender Extremities: No edema, Capillary Refill Less than 3 Seconds Skin: No rashes, No breakdown Musculoskeletal: No Tenderness to Palpation of Joints or Extremities Neurological: Cranial nerves II-XII grossly intact Psych/Mental Status: Normal Affect, Appropriate Patient seen and examined prior to discharge. Physical assessment as noted above. Patient is stable for discharge with follow up recommendations as noted above. This patient was seen by RICHIE Coello under the supervision of Dr. Vicente. - Physical Exam Vital Signs Temp Pulse Resp BP Pulse Ox 98.3 F 66 18 139/56 H 96 05/15/18 10:25 05/15/18 11:05 05/15/18 10:25 05/15/18 10:25 05/15/18 11:48 Oxygen Flow Rate (L/min) 2 Oxygen Delivery Method Room Air Weight: 139 lb 12.369 oz Body Mass Index (BMI) 24.7 Finger Stick Blood Glucose 83 Intake and Output for Last 24 Hours 05/13/18 05/14/18 05/15/18 23:59 23:59 23:59 Intake Total 60 / 60 480 / 480 Balance 60 / 60 480 / 480 Laboratory Tests Past 24 Hrs 05/14/18 05/14/18 05/14/18 18:30 18:30 18:30 WBC 5.5 RBC 3.82 L Hgb 12.2 Hct 37.2 MCV 97.4 MCH 31.9 MCHC 32.8 RDW 14.5 RDW Differential 51.6 H Plt Count 208 MPV 9.3 Immature Gran % (Auto) 0.000 Neut % (Auto) 65.4 Lymph % (Auto) 23.5 [place] % (Auto) 7.5 Eos % (Auto) 2.9 Baso % (Auto) 0.7 Absolute Neuts (auto) 3.6 Absolute Lymphs (auto) 1.29 Total Counted Not Reportable PT 12.7 INR 1.0 APTT 26.4 Sodium 138 Potassium 3.7 Chloride 104 Carbon Dioxide 25.0 Anion Gap 9 BUN 25 H Creatinine 0.83 Estim Creat Clear Calc 48.24 Est GFR (MDRD) Af Amer 86 Est GFR (MDRD) Non-Af 71 BUN/Creatinine Ratio 30.2 H Glucose 83 Hemoglobin A1c Calcium 8.9 Troponin I < 0.015 Triglycerides Cholesterol LDL Cholesterol VLDL Cholesterol HDL Cholesterol 05/14/18 05/15/18 18:30 05:50 WBC RBC Hgb Hct MCV MCH MCHC RDW RDW Differential Plt Count MPV Immature Gran % (Auto) Neut % (Auto) Lymph % (Auto) [place] % (Auto) Eos % (Auto) Baso % (Auto) Absolute Neuts (auto) Absolute Lymphs (auto) Total Counted PT INR APTT Sodium 141 Potassium 4.0 Chloride 105 Carbon Dioxide 28.0 Anion Gap 8 BUN 18 Creatinine 0.69 Estim Creat Clear Calc 38.35 Est GFR (MDRD) Af Amer 106 Est GFR (MDRD) Non-Af 87 BUN/Creatinine Ratio 26.1 H Glucose 86 Hemoglobin A1c 5.2 Calcium 8.6 Troponin I Triglycerides 35 Cholesterol 148 LDL Cholesterol 88 VLDL Cholesterol 7 HDL Cholesterol 53 POC Glucose 05/14/18 18:32 POC Glucose 83 Discharge Diet: No Restrictions Discharge Activity: Return to Normal Activity Call your doctor if you observe: Shortness of breath, Dizziness, Fainting spells, Chest pain Home Medications: Medications to take at Discharge Oxybutynin [Ditropan] 5 mg PO DAILY 12/20/13 Levothyroxine [Synthroid] 100 mcg PO SUTUWEFRSA 12/21/13 abatacept (with maltose) 250 mg intravenous solution 250 mg IV QMONTH ea 08/26/17 Cholecalciferol (VIT D3) [Vitamin D3] 1,000 unit PO QHS 05/14/18 Leucovorin Calcium 5 mg PO MO 05/14/18 Levothyroxine Sodium 150 mcg PO MOTH 05/14/18 Methotrexate Sodium [Methotrexate] 15 mg PO AHUJA 05/14/18 Multivitamin with Minerals [Multiple Vitamin] 1 tab PO QHS 05/14/18 Aspirin [Aspirin, Baby] 81 mg PO DAILY@0800 #30 tab.chew 05/15/18 Atorvastatin Calcium 40 mg PO QHS #30 tablet 05/15/18 Clopidogrel Bisulfate [Plavix] 75 mg PO DAILY #30 tablet 05/15/18 Following Prescrptions Were Given to Patient: Aspirin [Aspirin, Baby] 81 mg PO DAILY@0800 #30 tab.chew Atorvastatin Calcium 40 mg PO QHS #30 tablet Clopidogrel Bisulfate [Plavix] 75 mg PO DAILY #30 tablet Other Amb Orders: 30-Day Event Recorder [[facility]] Location: None Selected Primary Care Physician: Zane Potter MD [Primary Care Provider] - Please follow up with your Primary Care Physician in: 1 Week Please Follow Up With: Beto Burnett MD When: 4 Weeks Disposition: Home Minutes spent on discharge:: 35 Patient Condition:: Stable Medical Necessity - Tobacco Use Smoking Status: Never smoker Tobacco Use: Non-smoker Meaningful Use Info Meaningful Use Diagnoses (Choose all that apply): None applicable
== END 2018-05-15 15:18 | disposition home or self-care (01) ==
LOC: ED 18:37 → PCU 21:49
PROVIDERS: Admitting Provider Hospitalist; Emergency Provider Emergency Medicine; Family Provider Internal Medicine; PCP Internal Medicine; Visit Provider Internal Medicine
DX: G45.9 Transient cerebral ischemic attack, unspecified (principal); H53.8 Other visual disturbances; R47.01 Aphasia; E03.9 Hypothyroidism, unspecified; M06.9 Rheumatoid arthritis, unspecified; Z79.899 Other long term (current) drug therapy; H81.10 Benign paroxysmal vertigo, unspecified ear; N39.3 Stress incontinence (female) (male); M19.90 Unspecified osteoarthritis, unspecified site; R03.0 Elevated blood-pressure reading, without diagnosis of hypertension; R29.810 Facial weakness; R11.2 Nausea with vomiting, unspecified
CPT/HCPCS: 36415; 70450; 70496; 70498; 70551; 71045; 80048; 80061; 81001; 82962; 83036; 84484; 85025; 85610; 85730; 92522; 93005; 93306; 96361; 96372; 96374; 96375; 96376; 97802; 99218; 99285; J7030; Q9967; A4216; G0378; J2405

== ENCOUNTER 2018-05-15 19:42 | Emergency (ER) | payer MEDICARE, OTHER, SELFPAY ==
[2018-05-15 03:15] VITALS: BMI 24.7
[2018-05-15 19:43] VITALS: BP 164/75; PULSE 74; RESP 14; TEMP 36.6; O2SAT 97; BMI 24.8
--- NOTE | 2018-05-15 20:27 | EKG12_ITS ---
Test Reason : Blood Pressure : / mmHG Vent. Rate : 070 BPM Atrial Rate : 070 BPM P-R Int : 192 ms QRS Dur : 084 ms QT Int : 392 ms P-R-T Axes : 080 074 077 degrees QTc Int : 423 ms Normal sinus rhythm Normal ECG Confirmed by DEMETRIA BARNARD, BRITTON ([id number]), makeup editor ANABEL ARVIZU ([id number]) on 05/20/2018 10:42:23 AM Referred By: ALEJANDRA Confirmed By:BRITTON AUGUSTIN MD
[2018-05-15] MEDS: Ondansetron 4 MG/2 ML Vial IV (21:07)
[2018-05-15] MEDS: 0.9% Normal Saline 1,000 ML 1000 ML IV (21:07)
[2018-05-15 21:10] VITALS: BP 150/67; BP 160/81; BP 161/79; PULSE 72; PULSE 77; PULSE 81
[2018-05-15 21:26] LABS: Absolute Lymphocyte Count 0.33 X10^3/ul (0.83-4.51); Absolute Neutrophil Count 4.9 X10^3/uL (2.0-7.7); Basophil# 0.04 X10^3/uL; Basophil% 0.7 % (0-1); Eosinophil# 0.06 X10^3/uL; Hematocrit 39.6 % (37-47); Hemoglobin 12.9 g/dl (12.0-15.0); Lymphocyte # 0.33 X10^3/ul (4.0); Lymphocyte % 5.6 % (19-41); Mean Corp Hgb Conc 32.6 g/gl (32-36); Mean Corpuscular Hgb 31.7 pg (27.0-32.0); Mean Corpuscular Volume 97.3 fL (81-99); Mean Platelet Vol. 9.7 fl (6.2-12.0); Monocyte# 0.47 X10^3/uL; Neutrophil # 4.93 X10^3/uL (2.7-7.7); Platelet Count 199 K/mm3 (150-450); RBC Distribution Width CV 13.6 % (11.6-14.6); RBC Distribution Width SD 46.8 fl (35.1-43.9); Red Blood Count 4.07 M/mm3 (4.2-5.4); White Blood Count 5.9 K/mm3 (4.4-11.0)
[2018-05-15 21:29] LABS: Differential Indicated SCAN CRITERIA MET; POSITIVE COUNT NO; POSITIVE DIFFERENTIAL YES; POSITIVE MORPHOLOGY NO
[2018-05-15 21:36] LABS: Anion Gap 8 (5-15); BUN 15 mg/dL (7-18); Calcium,Total 8.6 mg/dL (8.5-10.1); Chloride 98 mmol/L (98-107); Creatinine, Serum 0.58 mg/dL (0.55-1.02); EST Glomerular Filtration Rate 108 mL/min (>60); Est Glom Filt Rate - Afr Amer 130 mL/min (>60); Estimated Creatinine Clearance 38.35 ml/min; Glucose 102 mg/dL (74-106); Potassium 4.1 mmol/L (3.5-5.1); Sodium Level 130 mmol/L (136-145)
[2018-05-15 21:42] VITALS: BP 157/72; PULSE 68; RESP 16; O2SAT 97
[2018-05-15 21:58] LABS: Anisocytosis RARE; Macrocytosis RARE; Platelet Estimate ADEQUATE (ADEQ)
[2018-05-15 21:59] LABS: Bacteria 0 SEEN /hpf (None Seen); Mucous, Urine 0 SEEN /hpf (<or=2+); Squamous Epithelial Cells - UA 0 SEEN /hpf (5-10)
[2018-05-15 22:35] LABS: Color, Urine Yellow (Yellow); Glucose, Dipstick Normal (Normal); Ketone-Dipstick 50 mg/dl (Negative); Leukocyte Esterase-Dipstick Negative /ul (Negative); Nitrite-Dipstick Negative (Negative); Occult Blood-Urine 150 /ul (Negative); Protein-Dipstick Negative (Negative); Specific Gravity, Urine 1.015 (1.002-1.030); Urine Bilirubin Dipstick Negative (Negative); Urine Clarity Clear (Clear); Urine Urobilinogen Normal (Normal)
--- NOTE | 2018-05-15 22:37 | ED.VISSUMM ---
- ER Visit Summary Date of Service: 05/15/18 Chief Complaint: [Dizziness and vomiting] History of Present Illness: The patient is a 78 F [presents to the emergency department with complaint of feeling dizzy every time she tries to stand. Patient also has had vomiting and dry heaves. Patient tells me she was just discharged from the hospital around 3 PM today. Patient was admitted for TIA-like symptoms and prior to having her MRI this morning she was premedicated with Ativan 1 mg x2. Patient states that she is been quite somnolent from that and has been feeling dizzy and nauseated. Patient does have a history of vertigo but she tells me that this is different and that there is no spinning sensation but just feels unsteady on her feet. Patient denies any chest pain or shortness of breath. She denies recent illness. Patient does have history of hypothyroidism, benign positional vertigo, rheumatoid arthritis, and TIA.] Physical Examination: [HEENT-PERRLA, EOMI. Cranial nerves II through XII grossly intact. TMs clear. Mucous membranes moist. No adenopathy. Cardiovascular-regular rate and rhythm without murmur or ectopy Lungs-clear to auscultation, chest wall stable without crepitus or subcu emphysema Abdomen-normoactive bowel sounds, soft, nontender, no rebound or rigidity, no peritoneal signs. Neuro jemx-yyiocv-ruka and heel solorio testing within normal limits, negative Romberg, negative pronator, fundi benign. NIH stroke scale 0. Extremities-intact ?4, normal range of motion, normal pulses, atraumatic] Test Results: [EKG obtained on arrival shows sinus rhythm with a ventricular rate of 70 bpm with no acute I segment changes. CBC with differential showed a white count of 5.9, hemoglobin 12.9, hematocrit 40, platelets 199. Chemistries unremarkable. Urinalysis was normal. Troponin was less than 0.015.] Orthostatic vital signs were negative. Emergency Department Course and Treatment: [Patient was given Zofran 4 mg IV and a liter normal same fluid bolus.] Patient ambulated in the department to the bathroom and back without difficulty. Patient had no further vomiting. Patient feels significantly improved. Treatment Plan: [Patient will be given a prescription for Zofran] Disposition: [Discharged home in stable condition] Impression: [Dizziness Nausea and vomiting-medication side effect] This note was generated with [employer] dictation software. It may contain incorrect words, spelling, and punctuation that were not noted in review of the chart prior to signing ED Disposition - Plan for ED Patient: Chief Complaint: Nausea/Vomiting Referrals: Josep Arnold MD [Primary Care Provider] -
[2018-05-15 22:39] LABS: Red Blood Cells-Urine 5-10 SEEN /hpf (0-5); White Blood Cells 0-5 SEEN /hpf (0-5)
--- NOTE | 2018-05-15 22:41 | ED.DCSUM_ITS ---
- ER Visit Summary Date of Service: 05/15/18 Chief Complaint: [Dizziness and vomiting] History of Present Illness: The patient is a 78 F [presents to the emergency department with complaint of feeling dizzy every time she tries to stand. Patient also has had vomiting and dry heaves. Patient tells me she was just discharged from the hospital around 3 PM today. Patient was admitted for TIA- like symptoms and prior to having her MRI this morning she was premedicated with Ativan 1 mg x2. Patient states that she is been quite somnolent from that and has been feeling dizzy and nauseated. Patient does have a history of vertigo but she tells me that this is different and that there is no spinning sensation but just feels unsteady on her feet. Patient denies any chest pain or shortness of breath. She denies recent illness. Patient does have history of hypothyroidism, benign positional vertigo, rheumatoid arthritis, and TIA.] Physical Examination: [HEENT-PERRLA, EOMI. Cranial nerves II through XII grossly intact. TMs clear. Mucous membranes moist. No adenopathy. Cardiovascular-regular rate and rhythm without murmur or ectopy Lungs-clear to auscultation, chest wall stable without crepitus or subcu emphysema Abdomen-normoactive bowel sounds, soft, nontender, no rebound or rigidity, no peritoneal signs. Neuro pqzs-wnfdfv-oami and heel solorio testing within normal limits, negative Romberg, negative pronator, fundi benign. NIH stroke scale 0. Extremities-intact ?4, normal range of motion, normal pulses, atraumatic] Test Results: [EKG obtained on arrival shows sinus rhythm with a ventricular rate of 70 bpm with no acute I segment changes. CBC with differential showed a white count of 5.9, hemoglobin 12.9, hematocrit 40, platelets 199. Chemistries unremarkable. Urinalysis was normal. Troponin was less than 0.015.] Orthostatic vital signs were negative. Emergency Department Course and Treatment: [Patient was given Zofran 4 mg IV and a liter normal same fluid bolus.] Patient ambulated in the department to the bathroom and back without difficulty. Patient had no further vomiting. Patient feels significantly improved. Treatment Plan: [Patient will be given a prescription for Zofran] Disposition: [Discharged home in stable condition] Impression: [Dizziness Nausea and vomiting-medication side effect] This note was generated with [employer] dictation software. It may contain incorrect words, spelling, and punctuation that were not noted in review of the chart prior to signing ED Disposition - Plan for ED Patient: Chief Complaint: Nausea/Vomiting Referrals: Josep Arnold MD [Primary Care Provider] -
--- NOTE | 2018-05-15 22:41 | ED.DEP ---
ED Disposition - Plan for ED Patient: Chief Complaint: Nausea/Vomiting Instructions: ED Nausea Vomiting, ED Dizziness [facility] Prescriptions: Ondansetron [Zofran Odt] 4 mg PO Q8H PRN PRN #10 tab PRN Reason: Nausea Referrals: Josep Arnold MD [Primary Care Provider] - 3-5 Days
[2018-05-15 23:04] VITALS: BP 133/71; PULSE 62; RESP 16; O2SAT 99
== END 2018-05-15 23:05 | disposition home or self-care (01) ==
PROVIDERS: Emergency Provider Emergency Medicine; Family Provider Internal Medicine; PCP Family Medicine
DX: H81.10 Benign paroxysmal vertigo, unspecified ear (principal); R11.2 Nausea with vomiting, unspecified; Z86.73 Personal history of transient ischemic attack (TIA), and cerebral infarction without residual deficits; Z79.899 Other long term (current) drug therapy; M06.9 Rheumatoid arthritis, unspecified; E03.9 Hypothyroidism, unspecified
CPT/HCPCS: 80048; 81001; 84484; 85025; 93005; J7030; A4216; J2405

== ENCOUNTER → 2018-05-29 13:50 | Outpatient (CLI) | payer MEDICARE, OTHER, SELFPAY ==
[2018-05-28 11:09] VITALS: BMI 23.0
== END ==
PROVIDERS: Family Provider Family Medicine; PCP Family Medicine; Referring Provider Internal Medicine Cardiovascular Disease; Visit Provider Internal Medicine Cardiovascular Disease
DX: Z86.73 Personal history of transient ischemic attack (TIA), and cerebral infarction without residual deficits (principal)
CPT/HCPCS: 93225; 93226

== ENCOUNTER 2020-06-03 12:12 | Outpatient (RCR) | payer MEDICARE, OTHER, SELFPAY ==
[2019-09-29 10:01] VITALS: BMI 22.8
== END 2020-06-03 23:59 ==
LOC: IMMUN 12:12
PROVIDERS: PCP Family Medicine; Visit Provider Family Medicine
DX: Z23 Encounter for immunization (principal)
CPT/HCPCS: 0011A; 0012A; 91301

== ENCOUNTER 2020-08-25 11:18 | Observation (INO) | payer MEDICARE, OTHER, SELFPAY ==
[2019-09-29 10:01] VITALS: BMI 22.8
[2020-08-25] VITALS (17 sets, daily range): BP systolic 107–203; BP diastolic 46–91; PULSE 56–93; RESP 14–22; TEMP 36.6–37; O2SAT 94–100; BMI 24.0; BMI 21.8; BMI 23.1
--- NOTE | 2020-08-25 11:19 | EKG12_ITS ---
Test Reason : STROKE TEAM Blood Pressure : / mmHG Vent. Rate : 070 BPM Atrial Rate : 070 BPM P-R Int : 186 ms QRS Dur : 090 ms QT Int : 380 ms P-R-T Axes : 074 066 067 degrees QTc Int : 410 ms Normal sinus rhythm Normal ECG Confirmed by SE BARNARD, DOUGLAS ([id number]), science editor ALYCIA WARREN ([id number]) on 08/30/2020 9:07:19 AM Referred By: POLO Confirmed By:CHERYL SAEZ MD
--- NOTE | 2020-08-25 11:19 | CT_ITS ---
STUDY: CT HEAD STROKE PROTOCOL W/O CONTRAST INJECTION REASON FOR EXAM: Female, 80 years old. Neuro deficit, acute, stroke suspected RADIATION DOSAGE (If Supplied By Facility): CTDIvol = ( 44.99 ) mGy, DLP = ( 796.11 ) mGycm TECHNIQUE: Transaxial CT imaging of the brain was performed without administration of intravenous contrast material. Individualized dose optimization techniques were used for this CT. COMPARISON: No relevant priors. FINDINGS: Normal soft tissue structures. Normal calvarium. There is mild cerebral atrophy with widening of the extra-axial spaces and ventricular dilatation. There are areas of decreased attenuation within the white matter tracts of the supratentorial brain, consistent with microvascular disease changes. Normal basal ganglia and thalami. Normal brainstem. There is mild cerebellar atrophy. There is no intracranial hemorrhage. There are no findings of an acute ischemic infarction. Normal visualized paranasal sinuses. CT/STROKE Brain/Head without Cont IMPRESSION: Chronic involutional changes of the brain. N.B. : The above information has been verbally conveyed by Freddy Page MD to Dr Roseann MD, on 08/25/2020 11:31:26 (ET). Electronically Signed: Freddy Page MD at 11:32 EDT , Service support ,
--- NOTE | 2020-08-25 11:23 | ED.VIS.GEN ---
History of Present Illness Chief Complaint: Neuro S/Sx Informant: Patient Onset: Today Context: Sudden Onset Current Severity: Mild Maximum Severity: Moderate Narrative: The patient is an 80-year-old female with medical history significant for arthritis who presents to the emergency department with strokelike symptoms. Patient states that about 2 hours prior to arrival, she noticed some vision loss in the right outer aspect of her right eye. She states it lasted about 20 minutes and then resolved. Shortly thereafter, she states that she had episodes of expressive aphasia. She states she knew what she wanted to say, but just cannot get the words out. By the time she arrived here, she thinks her symptoms have totally resolved. She denies headache. She does admit to being mildly dizzy. She denies fevers chills or head trauma. She does take baby aspirin but no other anticoagulants. She states that about 3 years ago, she had similar symptoms that they attributed to a TIA, but was never found to have stroke on imaging. Prior similar symptoms: No Recent Illness/Hospitalization: No Past Medical History - Allergies and Home Meds Allergies/Adverse Reactions: Allergies ANTIVIRAL Adverse Reaction (Uncoded 09/29/19 10:01) severe diarrhea SEVERE DIARRHEA Primary Care Physician: Josep Arnold MD [Primary Care Provider] - Prior records reviewed: Yes Past Medical History: - - Arthritis, prior TIA Surgical History: noncontributory, - Smoking Status: Never smoker - Family History Maternal Family History: Family History (Last Reviewed 09/29/19 @ 10:[address] Shmuel Ferguson MD) Sister Breast cancer Heart disease Myocardial infarction Father Heart disease Myocardial infarction, Onset Age: 69 Brother Heart disease Myocardial infarction CAD (coronary artery disease) Family History: Reports: Heart Disease Review of Systems General: Denies: Chills, Fever, Sweats Eyes: Denies: Visual changes - bilaterally, Diplopia ENT: Denies: Rhinorrhea, Sore throat Cardiovascular: Denies: Chest pain, Palpitations Respiratory: Denies: Dyspnea, Cough, Dyspnea on exertion Gastrointestinal: Denies: Abdominal pain, Nausea, Vomiting, Diarrhea, Melena, Hematochezia Genitourinary: Denies: Dysuria, Hematuria, Frequency Musculoskeletal: Denies: Back pain, Extremity Pain Skin: Denies: Rash, Wounds Neurological: Denies: Headache, Weakness, Numbness Physical Exam Inital Vital Signs reviewed: Yes General: Well nourished, Well developed, No Acute Distress Head: Normocephalic, Atraumatic Eyes: Perrl, EOMI ENT: Moist mucous membranes, No rhinorrhea Neck: Supple, Nontender Cardiovascular: Regular rate, Regular rhythm, No murmurs Respiratory: No distress, CTA bilaterally, Chest nontender Abdomen: Soft, Nontender, Nondistended, Normal bowel sounds Back: Nontender, Normal Inspection Extremities: Nontender, No edema Skin: Normal color, No rash Neurological: Alert, Oriented x3, Cranial nerves II-XII grossly intact, Normal Strength, Normal Sensation Psychological: Normal affect, Normal Mood Diagnostic/Tx/Re-eval Clinical Impression(s) from Imaging Studies Brain CT 08/25/20 11:19 IMPRESSION: Chronic involutional changes of the brain. N.B. : The above information has been verbally conveyed by Freddy Page MD to Dr Roseann MD, on 08/25/2020 11:31:26 (ET). Electronically Signed: Freddy Page MD at 11:32 EDT , Service support , ADDENDUM: 08/25/20 1140 IMPRESSION: Chronic involutional changes of the brain. N.B. : The above information has been verbally conveyed by Freddy Page MD to Dr Roseann MD, on 08/25/2020 11:31:26 (ET). Electronically Signed: Freddy Page MD at 11:32 EDT , Service support , Abnormal Lab Results 08/25/20 08/25/20 08/25/20 11:20 11:20 11:20 WBC 6.8 RBC 4.11 L Hgb 13.2 Hct 40.8 MCV 99.3 H MCH 32.1 H MCHC 32.4 RDW Std Deviation 51.4 H RDW Coeff of Miguel 14.1 Plt Count 219 MPV 10.0 Immature Gran % (Auto) 0.300 Neut % (Auto) 64.7 Lymph % (Auto) 23.2 Carlton % (Auto) 6.5 Eos % (Auto) 4.1 Baso % (Auto) 1.2 H Absolute Neuts (auto) 4.4 Absolute Lymphs (auto) 1.58 Nucleated RBC % 0 PT 12.0 INR 0.9 APTT 26.5 Sodium 135 L Potassium 4.0 Chloride 101 Carbon Dioxide 28.0 Anion Gap 6 BUN 16 Creatinine 0.90 Estim Creat Clear Calc 46.67 Est GFR (MDRD) Af Amer 78 Est GFR (MDRD) Non-Af 64 BUN/Creatinine Ratio 17.8 Glucose 133 H Calcium 9.4 Troponin I < 0.015 - Rhythm Strip Rhythm Strip: Sinus Rhythm Rate: 80 Ectopy: None - EKG Initial EKG Interpretation: Sinus Rhythm, No Acute Injury Pattern Prior: Unchanged - Medical Decision Making Stroke team was activated immediately on arrival. The patient's NIH is 0. Her symptoms have resolved. There is no visual field defect. There is no abnormalities of extraocular motion. She has clear speech. Patient underwent noncontrast head CT. This was negative for acute process. She was evaluated in conjunction with stroke neurologist from [facility]. As her symptoms have totally resolved, they did feel comfortable with admission here at our facility for further work-up. As the patient symptoms have totally resolved, she was not administered TPA. The patient is agreeable with this plan of care. She will be admitted at this time. Impression 1. TIA ED Disposition - Plan for ED Patient: Referrals: Josep Arnold MD [Primary Care Provider] -
[2020-08-25 11:27] LABS: Absolute Lymphocyte Count 1.58 X10^3/uL (0.83-4.51); Absolute Neutrophil Count 4.4 X10^3/uL (2.0-7.7); Basophil# 0.08 X10^3/uL; Basophil% 1.2 % (0-1); Eosinophil# 0.28 X10^3/uL; Eosinophils% 4.1 % (0-5); Hematocrit 40.8 % (37-47); Hemoglobin 13.2 g/dL (12.0-15.0); Lymphocyte # 1.58 X10^3/ul (0.83-4.51); Lymphocyte % 23.2 % (19-41); Mean Corp Hgb Conc 32.4 g/dL (32-36); Mean Corpuscular Hgb 32.1 pg (27.0-32.0); Mean Corpuscular Volume 99.3 fL (81-99); Monocyte# 0.44 X10^3/uL; Monocyte% 6.5 % (0-10); NRBC Flagged by Analyzer 0 % (0-5); Neutrophil % 64.7 % (47-70); Platelet Count 219 K/mm3 (150-450); RBC Distribution Width CV 14.1 % (11.6-14.6); RBC Distribution Width SD 51.4 fl (35.1-43.9); Red Blood Count 4.11 M/mm3 (4.2-5.4); White Blood Count 6.8 K/mm3 (4.4-11.0)
[2020-08-25 11:38] LABS: International Normalized Ratio 0.9
[2020-08-25 11:39] LABS: Partial Thromboplast Time 26.5 Seconds (24.1-36.2)
[2020-08-25 11:46] LABS: Anion Gap 6 (5-15); BUN 16 mg/dL (7-18); BUN/Creat Ratio 17.8 RATIO (10-20); Calcium,Total 9.4 mg/dL (8.5-10.1); Chloride 101 mmol/L (98-107); EST Glomerular Filtration Rate 64 mL/min (>60); Est Glom Filt Rate - Afr Amer 78 mL/min (>60); Estimated Creatinine Clearance 46.67 ml/min; Glucose 133 mg/dL (74-106); Sodium Level 135 mmol/L (136-145)
--- NOTE | 2020-08-25 11:47 | CHAPLAIN ---
Type of Pastoral Visit ___ Initial Visit ___ Follow-up Visit ___ On-call Visit ___ General Patient Visit ___ Spiritual Assessment ___ Family Conference ___ Bereavement _x__ Rapid Response ___ Code Blue ___ Other (describe below) Pastoral Care Referral From ___ Patient ___ Family ___ Nurse ___ Physician ___ Food Preservation Scientist ___ Solvent Process Extractor Operator _x__ Other (describe below) Sacrament/Intervention ___ Active listening ___ Anointing ___ Uatsdin ___ Bereavement ___ Communion ___ Marleni exploration ___ ___ Life review ___ Prayer ___ Reconciliation ___ Sacrament of Sick _x__ Supportive presence ___ Wedding _x__ Other (describe below) Pastoral Comments met with spouse of patient as medical team does evaluation and CT; spouse repeats the signs pt exhibited of possible stroke; both pt and spouse have medical knowledge and aware of possibilities; gave presence and offer of support; brought cup of water to spouse
--- NOTE | 2020-08-25 13:38 | PCM.HP.STD ---
History of Present Illness Date of Admission: 08/25/20 Chief Complaint: Expressive aphasia, hemianopsia - 1 day The patient is a 80 year old F with PMHx of TIA, rheumatoid arthritis who presents with above that started on the day of admission. Patient stated that she was in her usual state of health when she started having trouble seeing out of the side of her eyes. She later on was chatting with her but had difficulty saying words. This continued for a while and she decided to come to the ED. By bala time, she got to the ED, all her symptoms were resolved. Her vitals in the ED and blood work in ED were unremarkable. CTA of the head was unremarkable. Past Medical History Past Medical History (Chronic Problems): Chronic Problems (Last Reviewed 09/29/19 @ 10:[address] Shmuel Ferguson MD) Edema of lower extremity (Chronic) Secondary pulmonary arterial hypertension (Chronic) Medical History: Medical History (Last Reviewed 09/29/19 @ 10:[address] Shmuel Ferguson MD) Secondary pulmonary arterial hypertension (Chronic) I27.21 TIA (transient ischemic attack) (Resolved) Onset Date: 05/15/18 G45.9 Benign positional vertigo H81.10 Hypothyroidism E03.9 Osteoarthritis M19.90 Rheumatoid arthritis M06.9 Stress incontinence N39.3 Stress incontinence (Inactive) N39.3 Allergies ANTIVIRAL Adverse Reaction (Uncoded 09/29/19 10:01) severe diarrhea SEVERE DIARRHEA Home Medications: Ambulatory Orders Medication Instructions Recorded Oxybutynin [Ditropan] 5 mg PO DAILY 12/20/13 Levothyroxine [Synthroid] 100 mcg PO SUTUWEFRSA 12/21/13 abatacept (with maltose) 250 mg 250 mg IV QMONTH ea 08/26/17 intravenous solution Cholecalciferol (VIT D3) [Vitamin 1,000 unit PO QHS 05/14/18 D3] Levothyroxine Sodium 150 mcg PO MOTH 05/14/18 Multivitamin with Minerals 1 tab PO QHS 05/14/18 [Multiple Vitamin] leucovorin calcium 5 mg tablet 5 mg PO MO 09/29/19 meloxicam 7.5 mg tablet 7.5 mg PO DAILY PRN tab 09/29/19 methotrexate sodium 2.5 mg tablet 10 mg PO AHUJA tab 09/29/19 Aspirin [Aspirin, Baby] 81 mg PO QHS 08/25/20 Surgical History: Surgical History (Last Reviewed 09/29/19 @ 10:[address] Shmuel Ferguson MD) H/O basal cell carcinoma excision Z98.890, Z85.828 H/O squamous cell carcinoma excision Z98.890, Z85.9 S/P breast biopsy Z98.890 bilateral S/P cholecystectomy Z90.49 S/P colon resection Z90.49 S/P hernia repair Z98.890, Z87.19 S/P spinal surgery Z98.890 x1 to remove cyst, disc repair x1 Status post left hip replacement Z96.642 Status post left knee replacement Z96.652 Surgical History: noncontributory, - Psychiatric History: No pertinent psych hx INSPECTOR SET UP AND LAY OUT History: No pertinent INSPECTOR SET UP AND LAY OUT history Smoking Status: Never smoker - *Family History Maternal Family History: Family History (Last Reviewed 09/29/19 @ 10:[address] Shmuel Ferguson MD) Sister Breast cancer Heart disease Myocardial infarction Father Heart disease Myocardial infarction, Onset Age: 69 Brother Heart disease Myocardial infarction CAD (coronary artery disease) History Items: Heart Disease Review of Systems Constitutional: Denies: Anorexia, Chills, Fever, Night Sweats, Malaise, Weakness, Weight Change, Fatigue Eyes: Denies: Blurred vision, Cataracts, Eyelid Inflammation HEENT: Denies: Difficulty Hearing, Difficulty Swallowing, Head Aches, Hearing Changes, Sinus Congestion, Sinus Drainage Cardiovascular: Denies: Chest Pain, Claudication, Heaviness, Light Headedness, Orthopnea, Palpitations Respiratory: Denies: Cough, Hemoptysis, Shortness of breath at rest, Shortness of breath upon exertion, Sputum production Gastrointestinal: Denies: Abdominal Pain, Constipation, Hematemesis, Hematochezia, Nausea, Vomiting Genitourinary: Denies: Dysuria, Frequency Musculoskeletal: Denies: Joint Pain, Joint stiffness, Joint swelling, Joint Tenderness Skin: Denies: Rash, Wounds Neurological: Denies: Numbness, Tingling, Focal weakness Psychiatric: Denies: Anxiety, Depression, Homicidal Ideations, Suicidal Ideations Hematologic/ Lymphatic: Denies: Easy Bruising, Easy Bleeding VTE Information - Inpt Only VTE Present on Admission: No VTE Pharm Prophylaxis ordered?: Yes - Physical Exam Vitals/I&O's: Vital Signs Temp Pulse Resp BP Pulse Ox 98.3 F 60 18 161/64 H 100 08/25/20 12:45 08/25/20 12:45 08/25/20 12:45 08/25/20 12:45 08/25/20 12:45 Oxygen Delivery Method Room Air Weight: 59.2 kg Body Mass Index (BMI) 23.1 Finger Stick Blood Glucose 124 General: Alert, Oriented x3, Cooperative, No apparent distress HEENT: Atraumatic, PERRLA, EOMI, Normocephalic Oral: Moist Mucosa Neck: Supple Lungs: Clear to auscultation Cardiovascular: Regular rate, Regular Rhythm, Normal S1, Normal S2, No murmurs Abdomen: Bowel Sounds Present, Soft, Non Tender, Non-Distended, No Hepato-splenomegaly Extremities: No edema Skin: No rashes Musculoskeletal: No Tenderness to Palpation of Joints or Extremities Lymphatic: No Cervical, Supraclavicular, or Inguinal Adenopathy Neurological: Cranial nerves II-XII grossly intact, Neuro grossly intact Psych/Mental Status: Normal Affect, Appropriate Laboratory Results 08/25/20 11:20: WBC 6.8, RBC 4.11 L, Hgb 13.2, Hct 40.8, MCV 99.3 H, MCH 32.1 H, MCHC 32.4, RDW Std Deviation 51.4 H, RDW Coeff of Miguel 14.1, Plt Count 219, MPV 10.0, Immature Gran % (Auto) 0.300, Neut % (Auto) 64.7, Lymph % (Auto) 23.2, Bacon % (Auto) 6.5, Eos % (Auto) 4.1, Baso % (Auto) 1.2 H, Absolute Neuts (auto) 4.4, Absolute Lymphs (auto) 1.58, Nucleated RBC % 0 08/25/20 11:20: PT 12.0, INR 0.9, APTT 26.5 08/25/20 11:20: Sodium 135 L, Potassium 4.0, Chloride 101, Carbon Dioxide 28.0, Anion Gap 6, BUN 16, Creatinine 0.90, Estim Creat Clear Calc 46.67, Est GFR (MDRD) Af Amer 78, Est GFR (MDRD) Non-Af 64, BUN/Creatinine Ratio 17.8, Glucose 133 H, Calcium 9.4, Troponin I < 0.015 Current Medications Sodium Chloride () 250 mls @ 15 mls/hr IV .[id number] PRN PRN Reason: Saline Flush Sodium Chloride () 250 mls @ 15 mls/hr IV .[id number] PRN PRN Reason: Additional IVPB Infusion Labetalol HCl (Labetalol (Prefilled) 20 Mg/4 Ml) 20 mg IV X1 PRN PRN Reason: BLOOD PRESSURE Sodium Chloride (0.9% Saline Lock 10 Ml Syringe) 10 - 40 ml IV UD PRN PRN Reason: SALINE FLUSH Assessment/Plan All Active Problems (Last Reviewed 09/29/19 @ 10:[address] Shmuel Ferguson MD) TIA (transient ischemic attack) (Resolved 05/15/18) 1. Acute TIA, in a patient with h/o TIA Will rule out acute CVA Admit for stroke work-up, MRI brain, MRA head/neck, ECHO, Lipid profile, HgbA1c PT/OT/ST to evaluate and treat Aspirin 81 mg daily, atorvastatin 40mg daily 2. Hypothyroidism, continue on Synthroid 3. RA on methotrexate 4. DVT PPx- Lovenox SC 5. Code status - Full code I discussed and explained in details the various types of CODE STATUS-full code, DNR CCA, DNR CC. Patient chose Full code. She stated that she is very active and has a lot of life in her. Time spent discussing CODE STATUS 16 minutes Inpatient E&M: 00414 Init Hosp L3 Procedures: 79607 Advncd Care Plan 30 Min
--- NOTE | 2020-08-25 13:41 | MRI_ITS ---
STUDY: MRI BRAIN WITHOUT CONTRAST REASON FOR EXAM: Female, 80 years old. neurodeficit TECHNIQUE: Standardized multiplanar fat and water weighted pulse sequences were obtained. COMPARISON: CT of the brain 08/25/2020 FINDINGS: Mild atrophy and periventricular white matter ischemic changes. No mass effect or restricted diffusion.. Normal bilateral basal ganglia. Normal thalami. There is no extra-axial fluid accumulation. Normal flow voids within the major intracranial circulation suggesting patency by spin echo criteria. Empty sella deformity likely of no significance. Normal, infundibular stalk, optic chiasm and hypothalamus. Normal tectal plate and pineal gland. Normal midbrain, deb and medulla. Normal cerebellum. Normal basal cisterns. Normal bilateral temporal bones. Normal bilateral internal auditory canals. Postsurgical changes of the orbits.. Minor mucosal thickening of the ethmoid sinuses bilaterally. Normal calvarium and skull base. Normal visualized soft tissue structures. Normal visualized upper cervical spine. MRI/Brain without Contrast IMPRESSION: Mild atrophy and periventricular white matter ischemic changes without evidence for acute infarct. Electronically Signed: Luis Alberto Xiao MD at 17:39 EDT , Service support ,
--- NOTE | 2020-08-25 13:41 | MRI_ITS ---
STUDY: MRA NECK WITH AND WITHOUT CONTRAST REASON FOR EXAM: Female, 80 years old. neuro deficit TECHNIQUE: 3-D [id number] (TOF) imaging was performed in an 1.5 T MRI scanner. iv Dotarem 12ml was administered for the contrast enhanced images. COMPARISON: None. FINDINGS: RIGHT CAROTID ARTERIES: Normal right common carotid artery (CCA). Normal right common carotid bulb. Normal origin of the right internal carotid (ICA) artery without a hemodynamically significant stenosis. Normal visualized cervical portion of the right internal carotid artery. Normal origin of the right external carotid artery (ECA). LEFT CAROTID ARTERIES: Normal left common carotid artery (CCA). Normal left common carotid bulb. Normal origin of the left internal carotid (ICA) artery without a hemodynamically significant stenosis. Normal visualized cervical portion of the left internal carotid artery. Normal origin of the left external carotid artery (ECA). VERTEBRAL ARTERIES: Normal left vertebral artery. Mildly diffusely narrowed distal right vertebral. MRI/MRA Neck WITH and W/O Contrast IMPRESSION: Narrowed distal right vertebral. Otherwise no significant atherosclerotic disease Electronically Signed: Luis Alberto Xiao MD at 17:41 EDT , Service support ,
--- NOTE | 2020-08-25 13:41 | MRI_ITS ---
STUDY: MRA OF THE HEAD WITHOUT CONTRAST REASON FOR EXAM: Female, 80 years old. neuro deficit TECHNIQUE: 3-D ueml-ee-shywxr (TOF) imaging was performed with MIPs. The study was performed unenhanced. COMPARISON: None. FINDINGS: Normal bilateral petrous carotid arteries. Normal right cavernous carotid artery with a normal supraclinoid bifurcation. Normal left cavernous carotid artery with a normal supraclinoid bifurcation. Normal right A1 segments of the anterior cerebral artery. Normal left A1 segments of the anterior cerebral artery. Anterior communicating artery is not visualized consistent with normal variant). Normal bilateral A2 segments of the anterior cerebral arteries. Normal right M1 and M2 segments of the middle cerebral arteries, with a normal M1 bifurcation. Normal left M1 and M2 segments of the middle cerebral arteries, with a normal M1 bifurcation. Posterior communicating arteries are not visualized consistent with normal variant Normal bilateral vertebral arteries. Normal basilar artery with a normal basilar bifurcation. The visualized bilateral superior cerebellar (SCA) arteries are normal. Normal bilateral P1, P2 and visualized P3 segments of the posterior cerebral arteries. There is no demonstrated aneurysm of the [place]. There is no major vessel occlusion or hemodynamically significant stenosis. There is no demonstrated abnormality of the visualized brain. MRI/MRA Head ONLY without Contrast IMPRESSION: Normal MRA of the head Electronically Signed: Luis Alberto Xiao MD at 17:40 EDT , Service support ,
--- NOTE | 2020-08-25 13:41 | ECHOD_ITS ---
Reason For Study: TIA/CVA Procedure This was a 2D Doppler, Color Flow transthoracic echocardiogram. The exam was of adequate technical quality. Exam performed portable in patient room. Left Ventricle Normal LV size. Left ventricular systolic function is normal. The estimated ejection fraction is 65 %. No evidence for diastolic dysfunction. No regional wall motion abnormalities noted. Right Ventricle Normal RV size. Normal systolic function. Atria The left atrium is moderately enlarged. The right atrium is mildly enlarged. No doppler evidence for ASD. Mitral Valve There is no mitral annular calcification. Mild diffuse mitral valve thickening. Mild-Moderate (1-2+) mitral valve insufficiency. Tricuspid Valve Normal tricuspid valve. Mild tricuspid valve insufficiency. Right ventricular systolic pressure estimated to be 31 mmHg. Aortic Valve Trisinus/trileaflet aortic valve. Normal aortic valve. Trivial aortic valve insufficiency. Pulmonic Valve The pulmonic valve is not well visualized. Mild (1+) pulmonic valve insufficiency. Great Vessels Normal sized aortic root. Calcified aortic root. Pericardium/Pleural No pericardial effusion. MMode/2D Measurements & Calculations LVIDd: 4.7 cm IVSd: 0.64 cm Ao root diam: 3.3 cm LVIDs: 3.0 cm LVPWd: 0.66 cm RVDd: 3.0 cm FS: 35.8 % LAV(MOD-bp): 50.3 ml LVAd ap4: 23.5 cm2 SV(MOD-sp4): 39.6 ml LAV(MOD-bp) Indexed: 31.3 ml/m2 EDV(MOD-sp4): 67.4 ml LAV(MOD-sp2): 40.5 ml EDV(sp4-el): 71.0 ml LAV(MOD-sp4): 55.7 ml LVAs ap4: 13.6 cm2 ESV(MOD-sp4): 27.8 ml ESV(sp4-el): 28.9 ml EF(MOD-sp4): 58.7 % EF(sp4-el): 59.2 % SV(sp4-el): 42.0 ml LA A4 area: 18.8 cm2 LA dimension(2D): 4.1 cm RA A4 area: 12.8 cm2 Doppler Measurements & Calculations MV E max homer: 66.3 cm/sec Lat Peak E' Homer: 8.3 cm/sec Med Peak E' Homer: 6.8 cm/sec MV A max homer: 111.1 cm/sec E/E' lat: 8.0 E/E' med: 9.8 MV E/A: 0.60 Ao V2 max: 139.1 cm/sec LV V1 max: 138.6 cm/sec PA V2 max: 97.3 cm/sec Ao max P.7 mmHg LV V1 max P.7 mmHg Ao V2 mean: 100.3 cm/sec Ao mean P.3 mmHg Ao V2 VTI: 32.0 cm TR max homer: 261.0 cm/sec TR max P.3 mmHg ECHO/Echo Complete Interpretation Summary Left ventricular systolic function is normal. The estimated ejection fraction is 65 %. The left atrium is moderately enlarged. The right atrium is mildly enlarged. Mild diffuse mitral valve thickening. Mild-Moderate (1-2+) mitral valve insufficiency. Mild tricuspid valve insufficiency. Trivial aortic valve insufficiency. Mild (1+) pulmonic valve insufficiency. Calcified aortic root. Right ventricular systolic pressure estimated to be 31 mmHg. No evidence for diastolic dysfunction. Ordering Physician: Kristin Palma Referring Physician: Josep Arnold Performed By: Oriana More, DEBORAH, RVT
[2020-08-25] MEDS: LORazepam 2 MG/ML Syringe 1 MG IV (14:14)
[2020-08-25] MEDS: 0.9% Saline Lock 10 ML Syringe IV (14:15)
[2020-08-25 16:10] LABS: Bedside Glucose 124 mg/dL (70-110)
[2020-08-25] MEDS: 0.9% Normal Saline 1,000 ML 100 ML IV (16:21)
[2020-08-25] MEDS: Cholecalciferol (VIT D3) 25 MCG TABLET (1,000 UNITS) PO (20:00)
[2020-08-25] MEDS: Aspirin 81 MG TAB.CHEW PO (20:01)
[2020-08-25] MEDS: Atorvastatin Calcium 40 MG Tablet PO (20:02)
[2020-08-26] VITALS (7 sets, daily range): BP systolic 134–164; BP diastolic 52–72; PULSE 52–68; RESP 16–18; TEMP 36.6–36.9; O2SAT 96–99
[2020-08-26] MEDS: Levothyroxine 100 MCG Tablet PO (05:10)
[2020-08-26 06:34] LABS: Absolute Lymphocyte Count 0.63 X10^3/uL (0.83-4.51); Absolute Neutrophil Count 3.6 X10^3/uL (2.0-7.7); Basophil# 0.06 X10^3/uL; Basophil% 1.2 % (0-1); Eosinophil# 0.22 X10^3/uL; Eosinophils% 4.4 % (0-5); Hematocrit 36.5 % (37-47); Hemoglobin 11.7 g/dL (12.0-15.0); Lymphocyte # 0.63 X10^3/ul (0.83-4.51); Lymphocyte % 12.7 % (19-41); Mean Corp Hgb Conc 32.1 g/dL (32-36); Mean Corpuscular Hgb 31.8 pg (27.0-32.0); Mean Corpuscular Volume 99.2 fL (81-99); Monocyte# 0.48 X10^3/uL; Monocyte% 9.7 % (0-10); NRBC Flagged by Analyzer 0 % (0-5); Neutrophil # 3.55 X10^3/uL (2.7-7.7); Neutrophil % 71.8 % (47-70); Platelet Count 193 K/mm3 (150-450); RBC Distribution Width SD 51.3 fl (35.1-43.9); Red Blood Count 3.68 M/mm3 (4.2-5.4)
[2020-08-26 06:56] LABS: ALB/GLOB Ratio 1.1 RATIO (0.9-2.4); AST(SGOT) 22 U/L (15-37); Alanine Aminotransfer ALT/SGPT 23 U/L (13-56); Albumin, Serum 3.2 g/dL (3.2-5.0); Alkaline Phosphatase 49 U/L (45-117); Anion Gap 4 (5-15); BUN 20 mg/dL (7-18); BUN/Creat Ratio 26.4 RATIO (10-20); Calcium,Total 8.2 mg/dL (8.5-10.1); Chloride 104 mmol/L (98-107); Cholesterol 144 mg/dL (200); Creatinine, Serum 0.76 mg/dL (0.55-1.02); EST Glomerular Filtration Rate 78 mL/min (>60); Est Glom Filt Rate - Afr Amer 95 mL/min (>60); Estimated Creatinine Clearance 37.12 ml/min; Globulin 2.9 g/dL (2.2-4.2); Glucose 90 mg/dL (74-106); High Density Lipoprotein 54 mg/dL; Potassium 3.7 mmol/L (3.5-5.1); Protein, Total 6.1 g/dL (6.4-8.2); Sodium Level 136 mmol/L (136-145); Triglycerides 40 mg/dL; Very Low Density Lipoprotein 8 mg/dL (5-40)
--- NOTE | 2020-08-26 09:49 | CASEMGMT ---
SW completed a PHQ 9 with patient and she scored a 2 which indicates minimal depression. She denied any need for resources. Jailyn Riddle MSW ANALI
[2020-08-26] MEDS: Oxybutynin 5 MG Tablet PO (09:52)
[2020-08-26] MEDS: Multivitamins,Ther W-Minerals Tablet 1 TABLET PO (09:52)
--- NOTE | 2020-08-26 11:52 | DCINST_ITS ---
- Discharge Diagnoses Reason(s) for Visit for Discharge Instructions: TIA You will use the following diet at home:: Cardiac Your food should be the consistency of: Regular Your liquids should be the consistency of: Regular/Thin Discharge Activity: Return to Normal Activity Additional Instructions: Take note of changes to medications. Follow-up with your primary care doctor within 1 to 2 weeks. Allergies/Adverse Reactions: Allergies ANTIVIRAL Adverse Reaction (Uncoded 09/29/19 10:01) severe diarrhea SEVERE DIARRHEA Medications to take at Discharge Oxybutynin [Ditropan] 5 mg PO DAILY 12/20/13 Levothyroxine [Synthroid] 100 mcg PO SUTUWEFRSA 12/21/13 abatacept (with maltose) 250 mg intravenous solution 250 mg IV QMONTH ea 08/26/17 Cholecalciferol (VIT D3) [Vitamin D3] 1,000 unit PO QHS 05/14/18 Levothyroxine Sodium 150 mcg PO MOTH 05/14/18 Multivitamin with Minerals [Multiple Vitamin] 1 tab PO QHS 05/14/18 leucovorin calcium 5 mg tablet 5 mg PO MO 09/29/19 meloxicam 7.5 mg tablet 7.5 mg PO DAILY PRN tab 09/29/19 methotrexate sodium 2.5 mg tablet 10 mg PO AHUJA tab 09/29/19 Aspirin [Aspirin, Baby] 81 mg PO QHS 08/25/20 Atorvastatin Calcium [Lipitor] 40 mg PO QHS 30 Days #30 tablet 08/26/20 The following prescriptions were given: Atorvastatin Calcium [Lipitor] 40 mg PO QHS 30 Days #30 tablet Transmission Status: Received by HENNA FRANCO-[address] [facility] Primary Care Physician: Josep Arnold MD [Primary Care Provider] - Please follow up with your Primary Care Physician in: within 2 weeks Test Results: Test results from this visit will be discussed in further detail at your follow- up appointment, if applicable. Proposed Discharge Date: 08/26/20
--- NOTE | 2020-08-26 11:59 | DS.PCM_ITS ---
Discharge Date and Diagnosis Date of Admission: 08/25/20 Date of Discharge: 08/26/20 - Primary Discharge Diagnosis Acute Problems: Acute TIA - Secondary Discharge Diagnosis Chronic Problems: Chronic Problems (Last Reviewed 09/29/19 @ 10:[address] Shmuel Ferguson MD) Edema of lower extremity (Chronic) Secondary pulmonary arterial hypertension (Chronic) Hospital Course and Treatment Imaging Results: Clinical Impression(s) from Imaging Studies Brain CT 08/25/20 11:19 IMPRESSION: Chronic involutional changes of the brain. N.B. : The above information has been verbally conveyed by Freddy Page MD to Dr Roseann MD, on 08/25/2020 11:31:26 (ET). Electronically Signed: Freddy Page MD at 11:32 EDT , Service support , ADDENDUM: 08/25/20 1140 IMPRESSION: Chronic involutional changes of the brain. N.B. : The above information has been verbally conveyed by Freddy Page MD to Dr Roseann MD, on 08/25/2020 11:31:26 (ET). Electronically Signed: Freddy Page MD at 11:32 EDT , Service support , Brain MRI 08/25/20 13:41 IMPRESSION: Mild atrophy and periventricular white matter ischemic changes without evidence for acute infarct. Electronically Signed: Luis Alberto Xiao MD at 17:39 EDT , Service support , Echocardiogram 08/25/20 13:41 Interpretation Summary Left ventricular systolic function is normal. The estimated ejection fraction is 65 %. The left atrium is moderately enlarged. The right atrium is mildly enlarged. Mild diffuse mitral valve thickening. Mild-Moderate (1-2+) mitral valve insufficiency. Mild tricuspid valve insufficiency. Trivial aortic valve insufficiency. Mild (1+) pulmonic valve insufficiency. Calcified aortic root. Right ventricular systolic pressure estimated to be 31 mmHg. No evidence for diastolic dysfunction. Ordering Physician: Kristin Palma Referring Physician: Josep Arnold Performed By: Oriana More, DEBORAH, RVT Head MRA 08/25/20 13:41 IMPRESSION: Normal MRA of the head Electronically Signed: Luis Alberto Xiao MD at 17:40 EDT , Service support , Neck MRA 08/25/20 13:41 IMPRESSION: Narrowed distal right vertebral. Otherwise no significant atherosclerotic disease Electronically Signed: Luis Alberto Xiao MD at 17:41 EDT , Service support , Operations: None Procedures: 2-D Echocardiogram Summary of Care Provided: 80 year old F with PMHx of TIA, rheumatoid arthritis who presents with above that started on the day of admission. Patient stated that she was in her usual state of health when she started having trouble seeing out of the side of her eyes. She later on was chatting with her but had difficulty saying words. This continued for a while and she decided to come to the ED. By the time, she got to the ED, all her symptoms were resolved. Her vitals in the ED and blood work in ED were unremarkable. CTA of the head was unremarkable. She was admitted to telemetry floor and monitored with no acute events. She underwent MRI of the head and MRA of the head and neck that were unremarkable. She had 2D echo that showed a 55%. Subjective: On the day of admission, patient was seen and examined. Denied any new complaints. No more new symptoms. Objective: Physical exam: General: Alert, Oriented x3, Cooperative, No apparent distress HEENT: Atraumatic, PERRLA, EOMI, Normocephalic Oral: Moist Mucosa Neck: Supple Lungs: Clear to auscultation Cardiovascular: Regular rate, Regular Rhythm, Normal S1, Normal S2, No murmurs Abdomen: Bowel Sounds Present, Soft, Non Tender, Non-Distended, No Hepato- splenomegaly Extremities: No edema Skin: No rashes Musculoskeletal: No Tenderness to Palpation of Joints or Extremities Lymphatic: No Cervical, Supraclavicular, or Inguinal Adenopathy Neurological: Cranial nerves II-XII grossly intact, Neuro grossly intact Psych/Mental Status: Normal Affect, Appropriate - Physical Exam Vitals/I&O's: Vital Signs Temp Pulse Resp BP Pulse Ox 98.4 F 63 18 164/71 H 98 08/26/20 09:48 08/26/20 09:48 08/26/20 09:48 08/26/20 09:48 08/26/20 09:48 Oxygen Delivery Method Room Air Weight: 59.2 kg Body Mass Index (BMI) 23.1 Finger Stick Blood Glucose 124 Intake and Output for Last 24 Hours 08/24/20 08/25/20 08/26/20 23:59 23:59 23:59 Intake Total 645 / 645 120 / 120 Balance 645 / 645 120 / 120 Laboratory Results 08/25/20 11:19: POC Glucose 124 H 08/25/20 11:20: Hemoglobin A1c 5.0 08/26/20 05:50: Sodium 136, Potassium 3.7, Chloride 104, Carbon Dioxide 28.0, Anion Gap 4 L, BUN 20 H, Creatinine 0.76, Estim Creat Clear Calc 37.12, Est GFR (MDRD) Af Amer 95, Est GFR (MDRD) Non-Af 78, BUN/Creatinine Ratio 26.4 H, Glucose 90, Calcium 8.2 L, Total Bilirubin 0.60, AST 22, ALT 23, Alkaline Phosphatase 49, Total Protein 6.1 L, Albumin 3.2, Globulin 2.9, Albumin/Globulin Ratio 1.1, Triglycerides 40, Cholesterol 144, LDL Cholesterol 82, VLDL Cholesterol 8, HDL Cholesterol 54 08/26/20 05:50: WBC 5.0, RBC 3.68 L, Hgb 11.7 L, Hct 36.5 L, MCV 99.2 H, MCH 31.8, MCHC 32.1, RDW Std Deviation 51.3 H, RDW Coeff of Miguel 14.0, Plt Count 193, MPV 10.0, Immature Gran % (Auto) 0.200, Neut % (Auto) 71.8 H, Lymph % (Auto) 12.7 L, [place] % (Auto) 9.7, Eos % (Auto) 4.4, Baso % (Auto) 1.2 H, Absolute Neuts (auto) 3.6, Absolute Lymphs (auto) 0.63 L, Nucleated RBC % 0 Current Medications Acetaminophen (Acetaminophen 325 Mg Tablet) 650 mg PO Q4H PRN PRN PRN Reason: Headache/Temp>99.6F Aspirin (Aspirin 81 Mg Tab.Chew) 81 mg PO QHS [facility] Last Admin: 08/25/20 20:01 Dose: 81 mg Documented by: Atorvastatin Calcium (Atorvastatin Calcium 40 Mg Tablet) 40 mg PO QHS [facility] Last Admin: 08/25/20 20:02 Dose: 40 mg Documented by: Cholecalciferol (Cholecalciferol (Vit D3) 25 Mcg Tablet (1,000 Units)) 25 mcg PO QHS [facility] Last Admin: 08/25/20 20:00 Dose: 25 mcg Documented by: Levothyroxine Sodium (Levothyroxine 100 Mcg Tablet) 100 mcg PO SuTuWeFrSa@0600 [facility] Last Admin: 08/26/20 05:10 Dose: 100 mcg Documented by: Multivitamins/Minerals (Multivitamins,Ther W-Minerals Tablet) 1 tablet PO DAILY@0800 [facility] Last Admin: 08/26/20 09:52 Dose: 1 tablet Documented by: Oxybutynin Chloride (Oxybutynin 5 Mg Tablet) 5 mg PO DAILY [facility] Last Admin: 08/26/20 09:52 Dose: 5 mg Documented by: Sodium Chloride (0.9% Saline Lock 10 Ml Syringe) 10 - 40 ml IV UD PRN PRN Reason: SALINE FLUSH Discharge Diet: Low fat/ Low Cholesterol, 2000 mg Sodium Diet Discharge Activity: Return to Normal Activity Home Medications: Medications to take at Discharge Oxybutynin [Ditropan] 5 mg PO DAILY 12/20/13 Levothyroxine [Synthroid] 100 mcg PO SUTUWEFRSA 12/21/13 abatacept (with maltose) 250 mg intravenous solution 250 mg IV QMONTH ea 08/26/17 Cholecalciferol (VIT D3) [Vitamin D3] 1,000 unit PO QHS 05/14/18 Levothyroxine Sodium 150 mcg PO MOTH 05/14/18 Multivitamin with Minerals [Multiple Vitamin] 1 tab PO QHS 05/14/18 leucovorin calcium 5 mg tablet 5 mg PO MO 09/29/19 meloxicam 7.5 mg tablet 7.5 mg PO DAILY PRN tab 09/29/19 methotrexate sodium 2.5 mg tablet 10 mg PO AHUJA tab 09/29/19 Aspirin [Aspirin, Baby] 81 mg PO QHS 08/25/20 Atorvastatin Calcium [Lipitor] 40 mg PO QHS 30 Days #30 tablet 08/26/20 Following Prescriptions Were Given to Patient: Atorvastatin Calcium [Lipitor] 40 mg PO QHS 30 Days #30 tablet Transmission Status: Received by HENNA FRANCO-[address] [facility] Primary Care Physician: Josep Arnold MD [Primary Care Provider] - Please follow up with your Primary Care Physician in: within 2 weeks Disposition: Home Minutes spent on discharge:: 40 Patient Condition:: Stable Medical Necessity - Tobacco Use Smoking Status: Never smoker Tobacco Use: Non-smoker Meaningful Use Info Meaningful Use Diagnoses (Choose all that apply): None applicable OBSV E&M: 33027 Observation care discharge
--- NOTE | 2020-08-26 12:37 | CASEMGMT ---
Pt declined therapy as she states is back to baseline and states no further needs. SStjessica RN CM
--- NOTE | 2020-08-26 14:34 | PHA.DC.MC ---
Pharmacy Service has performed discharge medication reconciliation and counseling for this patient. The patient was counseled on the following discharge medications and changes in medications for homegoing were reviewed. 1. LIPITOR The Reason for Use, instructions for use, and potential side effects were reviewed for all new medications. The patient's questions regarding all of their medications were answered. The patient was able to verbally demonstrate an understanding of their discharge medications. Home Medications Oxybutynin [Ditropan] 5 mg PO DAILY 12/20/13 Levothyroxine [Synthroid] 100 mcg PO SUTUWEFRSA 12/21/13 abatacept (with maltose) 250 mg intravenous solution 250 mg IV QMONTH ea 08/26/17 Cholecalciferol (VIT D3) [Vitamin D3] 1,000 unit PO QHS 05/14/18 Levothyroxine Sodium 150 mcg PO MOTH 05/14/18 Multivitamin with Minerals [Multiple Vitamin] 1 tab PO QHS 05/14/18 leucovorin calcium 5 mg tablet 5 mg PO MO 09/29/19 meloxicam 7.5 mg tablet 7.5 mg PO DAILY PRN tab 09/29/19 methotrexate sodium 2.5 mg tablet 10 mg PO AHUJA tab 09/29/19 Aspirin [Aspirin, Baby] 81 mg PO QHS 08/25/20 Atorvastatin Calcium [Lipitor] 40 mg PO QHS 30 Days #30 tablet 08/26/20 The patient's discharge medication list was reviewed for discrepancies and discrepancies were resolved.
--- NOTE | 2020-08-26 15:20 | PCM.HP.STD ---
History of Present Illness The patient is a 80 year old F [] Past Medical History Past Medical History (Chronic Problems): Chronic Problems (Last Updated 08/26/20 @ 11:[address] Kristin Palma MD) Edema of lower extremity (Chronic) Secondary pulmonary arterial hypertension (Chronic) Medical History: Medical History (Last Updated 08/26/20 @ 11:[address] Kristin Palma MD) Secondary pulmonary arterial hypertension (Chronic) I27.21 TIA (transient ischemic attack) (Acute) Onset Date: 05/15/18 G45.9 Benign positional vertigo H81.10 Hypothyroidism E03.9 Osteoarthritis M19.90 Rheumatoid arthritis M06.9 Stress incontinence N39.3 Stress incontinence (Inactive) N39.3 Allergies ANTIVIRAL Adverse Reaction (Uncoded 09/29/19 10:01) severe diarrhea SEVERE DIARRHEA Home Medications: Ambulatory Orders Medication Instructions Recorded Oxybutynin [Ditropan] 5 mg PO DAILY 12/20/13 Levothyroxine [Synthroid] 100 mcg PO SUTUWEFRSA 12/21/13 abatacept (with maltose) 250 mg 250 mg IV QMONTH ea 08/26/17 intravenous solution Cholecalciferol (VIT D3) [Vitamin 1,000 unit PO QHS 05/14/18 D3] Levothyroxine Sodium 150 mcg PO MOTH 05/14/18 Multivitamin with Minerals 1 tab PO QHS 05/14/18 [Multiple Vitamin] leucovorin calcium 5 mg tablet 5 mg PO MO 09/29/19 meloxicam 7.5 mg tablet 7.5 mg PO DAILY PRN tab 09/29/19 methotrexate sodium 2.5 mg tablet 10 mg PO AHUJA tab 09/29/19 Aspirin [Aspirin, Baby] 81 mg PO QHS 08/25/20 Atorvastatin Calcium [Lipitor] 40 mg PO QHS 30 Days #30 tablet 08/26/20 Surgical History: Surgical History (Last Reviewed 09/29/19 @ 10:[address] 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 Shmuel Ferguson MD) Sister Breast cancer Heart disease Myocardial infarction Father Heart disease Myocardial infarction, Onset Age: 69 Brother Heart disease Myocardial infarction CAD (coronary artery disease) History Items: Heart Disease Review of Systems Constitutional: Denies: Chills, Fever, Weight Change HEENT: Denies: Head Aches, Sinus Congestion, Sinus Drainage Cardiovascular: Denies: Chest Pain, Palpitations Respiratory: Denies: Cough, Shortness of breath at rest, Sputum production - Physical Exam Vitals/I&O's: Vital Signs Temp Pulse Resp BP Pulse Ox 98.4 F 57 L 18 134/52 H 96 08/26/20 14:37 08/26/20 14:44 08/26/20 14:37 08/26/20 14:37 08/26/20 14:37 Oxygen Delivery Method Room Air Weight: 59.2 kg Body Mass Index (BMI) 23.1 Finger Stick Blood Glucose 124 Intake and Output for Last 24 Hours 08/24/20 08/25/20 08/26/20 23:59 23:59 23:59 Intake Total 645 / 645 600 / 600 Balance 645 / 645 600 / 600 General: Alert, Oriented x3, Cooperative Laboratory Results 08/25/20 11:19: POC Glucose 124 H 08/25/20 11:20: Hemoglobin A1c 5.0 08/26/20 05:50: Sodium 136, Potassium 3.7, Chloride 104, Carbon Dioxide 28.0, Anion Gap 4 L, BUN 20 H, Creatinine 0.76, Estim Creat Clear Calc 37.12, Est GFR (MDRD) Af Amer 95, Est GFR (MDRD) Non-Af 78, BUN/Creatinine Ratio 26.4 H, Glucose 90, Calcium 8.2 L, Total Bilirubin 0.60, AST 22, ALT 23, Alkaline Phosphatase 49, Total Protein 6.1 L, Albumin 3.2, Globulin 2.9, Albumin/Globulin Ratio 1.1, Triglycerides 40, Cholesterol 144, LDL Cholesterol 82, VLDL Cholesterol 8, HDL Cholesterol 54 08/26/20 05:50: WBC 5.0, RBC 3.68 L, Hgb 11.7 L, Hct 36.5 L, MCV 99.2 H, MCH 31.8, MCHC 32.1, RDW Std Deviation 51.3 H, RDW Coeff of Miguel 14.0, Plt Count 193, MPV 10.0, Immature Gran % (Auto) 0.200, Neut % (Auto) 71.8 H, Lymph % (Auto) 12.7 L, [place] % (Auto) 9.7, Eos % (Auto) 4.4, Baso % (Auto) 1.2 H, Absolute Neuts (auto) 3.6, Absolute Lymphs (auto) 0.63 L, Nucleated RBC % 0 Current Medications Acetaminophen (Acetaminophen 325 Mg Tablet) 650 mg PO Q4H PRN PRN PRN Reason: Headache/Temp>99.6F Aspirin (Aspirin 81 Mg Tab.Chew) 81 mg PO QHS [facility] Last Admin: 08/25/20 20:01 Dose: 81 mg Documented by: Atorvastatin Calcium (Atorvastatin Calcium 40 Mg Tablet) 40 mg PO QHS [facility] Last Admin: 08/25/20 20:02 Dose: 40 mg Documented by: Cholecalciferol (Cholecalciferol (Vit D3) 25 Mcg Tablet (1,000 Units)) 25 mcg PO QHS [facility] Last Admin: 08/25/20 20:00 Dose: 25 mcg Documented by: Levothyroxine Sodium (Levothyroxine 100 Mcg Tablet) 100 mcg PO SuTuWeFrSa@0600 [facility] Last Admin: 08/26/20 05:10 Dose: 100 mcg Documented by: Multivitamins/Minerals (Multivitamins,Ther W-Minerals Tablet) 1 tablet PO DAILY@0800 [facility] Last Admin: 08/26/20 09:52 Dose: 1 tablet Documented by: Oxybutynin Chloride (Oxybutynin 5 Mg Tablet) 5 mg PO DAILY [facility] Last Admin: 08/26/20 09:52 Dose: 5 mg Documented by: Sodium Chloride (0.9% Saline Lock 10 Ml Syringe) 10 - 40 ml IV UD PRN PRN Reason: SALINE FLUSH Assessment/Plan All Active Problems (Last Updated 08/26/20 @ 11:[address] Kristin Palma MD) TIA (transient ischemic attack) (Acute 05/15/18)
--- NOTE | 2020-08-26 15:52 | HP.PCM_ITS ---
History of Present Illness Date of Service: 08/26/20 Past Medical History Past Medical History: Chronic Problems (Last Updated 08/26/20 @ 11:[address] Kristin Palma MD) Edema of lower extremity (Chronic) Secondary pulmonary arterial hypertension (Chronic) Surgical History: noncontributory, - Allergies/Adverse Reactions: Allergies ANTIVIRAL Adverse Reaction (Uncoded 09/29/19 10:01) severe diarrhea SEVERE DIARRHEA Home Medications: Ambulatory Orders Medication Instructions Recorded Oxybutynin [Ditropan] 5 mg PO DAILY 12/20/13 Levothyroxine [Synthroid] 100 mcg PO SUTUWEFRSA 12/21/13 abatacept (with maltose) 250 mg 250 mg IV QMONTH ea 08/26/17 intravenous solution Cholecalciferol (VIT D3) [Vitamin 1,000 unit PO QHS 05/14/18 D3] Levothyroxine Sodium 150 mcg PO MOTH 05/14/18 Multivitamin with Minerals 1 tab PO QHS 05/14/18 [Multiple Vitamin] leucovorin calcium 5 mg tablet 5 mg PO MO 09/29/19 meloxicam 7.5 mg tablet 7.5 mg PO DAILY PRN tab 09/29/19 methotrexate sodium 2.5 mg tablet 10 mg PO AHUJA tab 09/29/19 Aspirin [Aspirin, Baby] 81 mg PO QHS 08/25/20 Atorvastatin Calcium [Lipitor] 40 mg PO QHS 30 Days #30 tablet 08/26/20 - Family History Maternal Family History: Family History (Last Reviewed 09/29/19 @ 10:[address] Shmuel Ferguson MD) Sister Breast cancer Heart disease Myocardial infarction Father Heart disease Myocardial infarction, Onset Age: 69 Brother Heart disease Myocardial infarction CAD (coronary artery disease) Heart Disease Smoking Status: Never smoker Review of Systems Constitutional: Denies: Chills, Fever, Weight Change Eyes: Denies: Pain, Vision Change HEENT: Denies: Difficulty Hearing, Difficulty Swallowing, Sinus Congestion Cardiovascular: Denies: Chest Pain, Palpitations Gastrointestinal: Reports: Abdominal Pain Genitourinary: Denies: Dysuria, Hematuria - Physical Exam Vital Signs Temp Pulse Resp BP Pulse Ox 98.4 F 57 L 18 134/52 H 96 08/26/20 14:37 08/26/20 14:44 08/26/20 14:37 08/26/20 14:37 08/26/20 14:37 General: Alert, Oriented x3, Cooperative, No apparent distress HEENT: PERRLA, EOMI Neck: Supple, No JVD, Negative Carotid Bruits Cardiovascular: Regular rate, Regular Rhythm Abdomen: Soft, Non Tender Extremities: No edema, Capillary Refill Less than 3 Seconds Musculoskeletal: No Tenderness to Palpation of Joints or Extremities Neurological: Cranial nerves II-XII grossly intact Psych/Mental Status: Normal Affect, Appropriate Assessment/Plan Clinical Impression(s) from Imaging Studies Brain CT 08/25/20 11:19 IMPRESSION: Chronic involutional changes of the brain. N.B. : The above information has been verbally conveyed by Freddy Page MD to Dr Roseann MD, on 08/25/2020 11:31:26 (ET). Electronically Signed: Freddy Page MD at 11:32 EDT , Service support , ADDENDUM: 08/25/20 1140 IMPRESSION: Chronic involutional changes of the brain. N.B. : The above information has been verbally conveyed by Freddy Page MD to Dr Roseann MD, on 08/25/2020 11:31:26 (ET). Electronically Signed: Freddy Page MD at 11:32 EDT , Service support , Brain MRI 08/25/20 13:41 IMPRESSION: Mild atrophy and periventricular white matter ischemic changes without evidence for acute infarct. Electronically Signed: Luis Alberto Xiao MD at 17:39 EDT , Service support , Echocardiogram 08/25/20 13:41 Interpretation Summary Left ventricular systolic function is normal. The estimated ejection fraction is 65 %. The left atrium is moderately enlarged. The right atrium is mildly enlarged. Mild diffuse mitral valve thickening. Mild-Moderate (1-2+) mitral valve insufficiency. Mild tricuspid valve insufficiency. Trivial aortic valve insufficiency. Mild (1+) pulmonic valve insufficiency. Calcified aortic root. Right ventricular systolic pressure estimated to be 31 mmHg. No evidence for diastolic dysfunction. Ordering Physician: Kristin Palma Referring Physician: Josep Arnold Performed By: Oriana More, DEBORAH, RVT Head MRA 08/25/20 13:41 IMPRESSION: Normal MRA of the head Electronically Signed: Luis Alberto Xiao MD at 17:40 EDT , Service support , Neck MRA 08/25/20 13:41 IMPRESSION: Narrowed distal right vertebral. Otherwise no significant atherosclerotic disease Electronically Signed: Luis Alberto Xiao MD at 17:41 EDT , Service support ,
== END 2020-08-26 11:25 | disposition home or self-care (01) ==
LOC: ED 12:09 → PCU 13:50
PROVIDERS: Admitting Provider Internal Medicine; Emergency Provider Emergency Medicine; PCP Family Medicine; Visit Provider Internal Medicine
DX: G45.9 Transient cerebral ischemic attack, unspecified (principal); I27.21 Secondary pulmonary arterial hypertension; R60.0 Localized edema; H54.7 Unspecified visual loss; R42 Dizziness and giddiness; R29.700 NIHSS score 0; R47.01 Aphasia; H53.47 Heteronymous bilateral field defects; M06.9 Rheumatoid arthritis, unspecified; E03.9 Hypothyroidism, unspecified; M19.90 Unspecified osteoarthritis, unspecified site; Z79.899 Other long term (current) drug therapy; Z79.82 Long term (current) use of aspirin
CPT/HCPCS: 36415; 70450; 70544; 70549; 70551; 80048; 80053; 80061; 82962; 83036; 84484; 85025; 85610; 85730; 92610; 93005; 93306; 94762; 96361; 96374; 97802; 99218; 99285; A9575; J7030; A4216; G0378

== ENCOUNTER 2022-01-01 13:29 | Observation (INO) | payer MEDICARE, OTHER, SELFPAY ==
[2022-01-01] VITALS (13 sets, daily range): BP systolic 115–167; BP diastolic 53–102; PULSE 64–86; RESP 16–19; TEMP 36.7–37.2; O2SAT 94–99; BMI 21.2; BMI 21.5
--- NOTE | 2022-01-01 13:25 | CT_ITS ---
STUDY: CT HEAD STROKE PROTOCOL W/O CONTRAST INJECTION REASON FOR EXAM: Female, 81 years old. STROKE RADIATION DOSAGE (If Supplied By Facility): CTDIvol = ( 44.99 ) mGy, DLP = ( 779.24 ) mGycm TECHNIQUE: Transaxial CT imaging of the brain was performed without administration of intravenous contrast material. Individualized dose optimization techniques were used for this CT. COMPARISON: Comparison is made with prior study dated 08/25/2020. FINDINGS: Normal soft tissue structures. Normal calvarium. There is mild cerebral atrophy with widening of the extra-axial spaces and ventricular dilatation. Normal white matter tracts of the cerebral hemispheres. There are small punctate calcifications of the basal ganglia which are seen in the aging brain as a normal variant. Normal brainstem. Normal cerebellum. There is no intracranial hemorrhage. There are no findings of an acute ischemic infarction. Atherosclerotic calcification of the vertebral arteries and cavernous portions of the internal carotid arteries bilaterally. Normal visualized paranasal sinuses. ASPECT score: 10 CT/STROKE Brain/Head without Cont IMPRESSION: Chronic involutional changes of the brain. N.B. : The above Results were Read Back by Freddy Page MD to Laurence Deleon and understanding confirmed on 01/01/2022 13:40:37 (ET). Electronically Signed: Freddy Page MD at 13:41 EDT ,
--- NOTE | 2022-01-01 13:31 | ED.RN ---
EXPRESSIVE APHAGIA STARTED 1309.
--- NOTE | 2022-01-01 13:35 | CM.ED ---
SW Note SW responded to Stroke Alert. No family or support present. Patient went to Imaging. SW remains available if needs arise. Diana HELMS
--- NOTE | 2022-01-01 13:39 | EKG12_ITS ---
Test Reason : stroke alert Blood Pressure : / mmHG Vent. Rate : 071 BPM Atrial Rate : 071 BPM P-R Int : 168 ms QRS Dur : 086 ms QT Int : 378 ms P-R-T Axes : 076 078 072 degrees QTc Int : 410 ms Normal sinus rhythm Possible Left atrial enlargement Borderline ECG Confirmed by DEMETRIA BARNARD, BRITTON ([id number]), editor at large ALYCIA WARREN ([id number]) on 01/03/2022 9:37:41 AM Referred By: Pancho Confirmed By:BRITTON AUGUSTIN MD
--- NOTE | 2022-01-01 13:41 | EDS_ITS ---
HPI History of Present Illness Chief Complaint: Neuro S/Sx Informant: patient Onset/Context/Timing Onset: Today Context: Sudden Onset Quality and Location: Positive for Expressive Aphasia Narrative Narrative: Patient presents to triage secondary to expressive aphasia. She states symptoms started roughly half hour ago. She states she could not get her words out when trying to speak to her . Stroke alert was called in triage and patient was in CAT scan before I had the opportunity to evaluate her. Upon return to the room patient is speaking without difficulty. She states she does not quite feel back to baseline but much improved. Patient reports history of at least 2 prior TIAs. She states that she was evaluated by a neurologist at [facility] and they were not sure that she truly had TIA. She takes baby aspirin daily. She denies having any other weakness or paresthesia with this episode today. 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) Osteoarthritis Rheumatoid arthritis Secondary pulmonary arterial hypertension Stress incontinence TIA (transient ischemic attack) (08/25/20) Home Medications oxybutynin chloride 5 mg tablet 5 mg PO DAILY bladder spasms 12/20/13 [History Last Taken 08/25/20] levothyroxine 100 mcg tablet 100 mcg PO SUTUWEFRSA thyroid 12/21/13 [History Last Taken 08/24/20] abatacept (with maltose) 250 mg intravenous solution (Orencia (with maltose)) 250 mg IV QMONTH RA 08/26/17 [History Last Taken 08/22/20] cholecalciferol (vitamin D3) 25 mcg (1,000 unit) tablet 1,000 unit PO QHS supplement 05/14/18 [History Last Taken 08/24/20] levothyroxine 100 mcg tablet 150 mcg PO MOTH thyroid 05/14/18 [History Last Taken 08/25/20] multivitamin with minerals 1 tab PO QHS supplement 05/14/18 [History Last Taken 08/24/20] leucovorin calcium 5 mg tablet 5 mg PO MO supplement 09/29/19 [History Last Taken 08/22/20] methotrexate sodium 2.5 mg tablet 10 mg PO AHUJA RA 09/29/19 [History Last Taken 08/21/20] aspirin 81 mg chewable tablet 81 mg PO [facility] 08/25/20 [History Last Taken 08/24/20] hydrochlorothiazide 12.5 mg capsule 12.5 mg PO DAILY 09/29/20 [History Last Taken Unknown] meloxicam 7.5 mg tablet 7.5 mg PO DAILY Pain Score 1-10 09/29/20 [History Last Taken Unknown] rosuvastatin 10 mg tablet 10 mg PO DAILY 09/29/20 [History Last Taken Unknown] Allergy/AdvReac Type Severity Reaction Status Date / Time lisinopril AdvReac Severe Other Verified 12/11/21 06:21 ANTIVIRAL AdvReac severe Uncoded 10/05/21 07:14 diarrhea Family History Sister Breast cancer Heart disease Myocardial infarction age 72 Father Heart disease Myocardial infarction, Onset Age: 69 from MS age 69 Brother Heart disease Myocardial infarction Age 65 CABG CAD (coronary artery disease) CABG Surgical History H/O basal cell carcinoma excision H/O squamous cell carcinoma excision History of breast biopsy History of cholecystectomy History of colon resection History of herniorrhaphy History of knee replacement History of total hip arthroplasty S/P spinal surgery Status post ablation of incompetent vein using laser (09/2021) Social History Smoking Status: Never smoker alcohol intake: current details: occasionally substance use type: does not use caffeine: Yes what type of physical activity do you participate in: none seatbelt use: always do you feel safe at home: Yes additional social history: -[employer] Patient and are retired ROS ROS ED Constitutional Constitutional ED: Denies chills or fever(s) Eyes Eyes: Denies change in vision or discharge from eye(s) ENT ENT ED: Denies discharge from eye(s), rhinorrhea or sore throat Cardiovascular Cardiovascular: Denies chest pain or palpitations Respiratory/Chest Respiratory/Chest: Denies cough or dyspnea Gastrointestinal Gastrointestinal: Denies abdominal pain, diarrhea, nausea or vomiting Genitourinary Genitourinary ED: Denies difficulty urinating or dysuria Musculoskeletal Musculoskeletal: Denies back pain or extremity pain Integumentary Denies Abrasions or rash Neurologic Neurologic: Reports other Details: Speech difficult ; Denies headache(s), paresthesias or weakness Psychiatric Psychiatric: Denies anxiety or depression Allergic/Immunologic Allergic/Immunologic ED: Denies lip swelling or urticaria EXAM Physical Exam Const Vital Signs: 01/01/22 13:36 01/01/22 13:42 01/01/22 13:39 Temperature 98.6 F Temperature Source Temporal Pulse Rate 74 74 Respiratory Rate 19 H 19 H Blood Pressure 162/100 H 167/64 H Blood Pressure Mean 120 98 Pulse Ox 99 99 Oxygen Delivery Method Room Air Room Air Room Air 01/01/22 15:29 Temperature Temperature Source Pulse Rate 86 Respiratory Rate 19 H Blood Pressure 115/102 H Blood Pressure Mean 106 Pulse Ox 98 Oxygen Delivery Method Room Air Positive well nourished and well developed General Appearance ED: well developed HEENT Reports moist mucous membranes Eyes PERRL and EOMs intact bilaterally Neck no lymphadenopathy Chest Wall inspection of chest normal and palpation of chest normal Resp normal respiratory effort and clear to auscultation bilaterally Cardio Rate: regular rate Rhythm: regular rhythm GI normal to inspection, nondistended, normoactive bowel sounds Extremity normal to inspection Neuro oriented x3, CN's II-XII intact bilaterally and no sensory deficits noted Motor Exam: strength 5/5 throughout Psych mental status grossly normal Skin no wounds NIHSS NIHSS Initial: 1a Level of Consciousness: 0 1b LOC Questions (Score 2 if aphasic/stupor): 0 1c LOC Commands (Only score 1st attempt): 0 2 Best Gaze (If aphasic, use reflexive mvmts.): 0 3 Visual: 0 4 Facial Palsy: 0 5 Motor Arm Right (UN = amputation/fusion): 0 5 Motor Arm Left: 0 6 Motor Leg Right: 0 6 Motor Leg Left: 0 7 Limb ataxia (Only + if out of proportion): 0 8 Sensory (Aphasia/stupor=0 or 1, coma=2): 0 9 Best Language: 0 10 Dysarthria (mute, coma=2, intubated=UN): 0 11 Extinction and Inattention (only scored if +): 0 Total Score: 0 MDM MDM MDM Narrative Medical decision making narrative: Stroke alert initiated from triage. Upon my evaluation stroke work-up is initiated. Lab Data Attestation: I reviewed the patient's lab results. Labs: Laboratory Results - last 24 hr 01/01/22 01/01/22 01/01/22 13:36 13:40 13:40 WBC 6.3 RBC 3.93 L Hgb 12.7 Hct 37.9 MCV 96.4 MCH 32.3 H MCHC 33.5 RDW Std Deviation 49.9 H RDW Coeff of Miguel 14.0 Plt Count 206 MPV 9.7 Immature Gran % (Auto) 0.200 Neut % (Auto) 71.6 H Lymph % (Auto) 17.0 L [place] % (Auto) 7.7 Eos % (Auto) 2.7 Baso % (Auto) 0.8 Absolute Neuts (auto) 4.5 Absolute Lymphs (auto) 1.08 Nucleated RBC % 0 PT 12.8 INR 1.0 APTT 27.4 Sodium Potassium Chloride Carbon Dioxide Anion Gap BUN Creatinine Estim Creat Clear Calc Est GFR (MDRD) Af Amer Est GFR (MDRD) Non-Af BUN/Creatinine Ratio Glucose Calcium Troponin I High Sens POC Glucose 90 01/01/22 13:40 WBC RBC Hgb Hct MCV MCH MCHC RDW Std Deviation RDW Coeff of Miguel Plt Count MPV Immature Gran % (Auto) Neut % (Auto) Lymph % (Auto) [place] % (Auto) Eos % (Auto) Baso % (Auto) Absolute Neuts (auto) Absolute Lymphs (auto) Nucleated RBC % PT INR APTT Sodium 132 L Potassium 3.8 Chloride 99 Carbon Dioxide 26.0 Anion Gap 7 BUN 21 H Creatinine 0.83 Estim Creat Clear Calc 45.90 Est GFR (MDRD) Af Amer 85 Est GFR (MDRD) Non-Af 70 BUN/Creatinine Ratio 25.4 H Glucose 91 Calcium 9.3 Troponin I High Sens 7 POC Glucose Radiography Diagnostic Testing: Clinical Impression(s) from Imaging Studies Brain CT 01/01/22 13:25 IMPRESSION: Chronic involutional changes of the brain. N.B. : The above Results were Read Back by Freddy Page MD to Laurence Deleon and understanding confirmed on 01/01/2022 13:40:37 (ET). Electronically Signed: Freddy Page MD at 13:41 EDT , Chest X-Ray 01/01/22 13:50 IMPRESSION: Hyperinflation. The lungs are clear. Electronically Signed: Freddy Page MD at 14:30 EDT , Head/Neck CTA 01/01/22 14:42 IMPRESSION: Minimal calcific plaque at the origin of the left internal carotid artery causing less than 50% narrowing. Electronically Signed: Freddy Page MD at 15:39 EDT , EKG Initial EKG: Attestation: I personally reviewed and interpreted this EKG as follows: Interpretation: Sinus Rhythm (Sinus at 71 with no acute ischemia.) Treatment and Re-Evaluation Narrative: On repeat evaluation patient resting calmly. She is had no recurrent symptoms while in the emergency room. CT scan of the head reveals no acute findings. CTA reveals no significant stenosis. No LVO. Lab work is unremarkable and chest x-ray reveals no focal infiltrate per my interpretation. Test results discussed with patient and at bedside. [facility] neurology did recommend work-up for TIA which would include MRI and echocardiogram. I will speak with hospitalist regarding admission for further work-up. Discharge Plan Triage Chief Complaint: Neuro S/Sx ED Provider: Laurence Deleon Dx/Rx/DC Orders Clinical Impression: Brain TIA Prescriptions: No Action abatacept (with maltose) [Orencia (with maltose)] 250 mg recon soln 250 mg IV QMONTH Label Comments: .once a month Rx Instructions: gets at [facility] infusion lab in [place] meloxicam 7.5 mg tablet 7.5 mg PO DAILY rosuvastatin 10 mg tablet 10 mg PO DAILY hydrochlorothiazide 12.5 mg capsule 12.5 mg PO DAILY oxybutynin chloride 5 MG tablet 5 mg PO DAILY Label Comments: URINARY URGENCY levothyroxine 100 MCG tablet 100 mcg PO SUTUWEFRSA Label Comments: takes every day but Saturday and . Takes 150 mcg on Saturday and levothyroxine 100 MCG tablet 150 mcg PO MOTH Label Comments: TAKE ONE TABLET BY MOUTH ONE TIME DAILY , EXCEPT TAKE ONE AND ONE-HALFTABLETS ON SATURDAY AND SATURDAY multivitamin with minerals 1 EACH tablet 1 tab PO QHS cholecalciferol (vitamin D3) 1,000 UNIT tablet 1,000 unit PO QHS leucovorin calcium 5 mg tablet 5 mg PO MO Label Comments: take 1 tablet by mouth every SATURDAY methotrexate sodium 2.5 mg tablet 10 mg PO AHUJA Label Comments: take 5 tablets by mouth every week aspirin 81 MG tablet,chewable 81 mg PO QHS Primary Care Provider: Josep Arnold Referrals: Josep Arnold MD [Primary Care Provider] - Disposition Disposition: Acute Care Hospital [facility]
--- NOTE | 2022-01-01 13:50 | RAD_ITS ---
STUDY: X-RAY CHEST REASON FOR EXAM: Female, 81 years old. NEURO DEFICIT, ACUTE, STROKE SUSPECTED TECHNIQUE: Single AP portable view of the chest. COMPARISON: Comparison is made with prior study 05/14/2018. FINDINGS: EKG electrodes are seen. Hyperinflation. The lungs are clear. There is no demonstrated pleural abnormality. Normal size heart. Normal mediastinum and shy. Normal visualized pulmonary arteries. There is atherosclerotic calcification of the aortic arch with tortuosity. There are diffuse degenerative changes of the visualized thoracic spine. Mild dextroscoliosis at the thoracolumbar level. There is degenerative osteoarthritis of the bilateral shoulders. There is no demonstrated abnormality of the visualized soft tissue structures of the upper abdomen. RAD/Chest 1 View IMPRESSION: Hyperinflation. The lungs are clear. Electronically Signed: Freddy Page MD at 14:30 EDT ,
[2022-01-01 13:52] LABS: Absolute Lymphocyte Count 1.08 X10^3/uL (0.83-4.51); Absolute Neutrophil Count 4.5 X10^3/uL (2.0-7.7); Basophil# 0.05 X10^3/uL; Basophil% 0.8 % (0-1); Eosinophil# 0.17 X10^3/uL; Eosinophils% 2.7 % (0-5); Hematocrit 37.9 % (37-47); Hemoglobin 12.7 g/dL (12.0-15.0); Lymphocyte # 1.08 X10^3/ul (0.83-4.51); Mean Corp Hgb Conc 33.5 g/dL (32-36); Mean Corpuscular Hgb 32.3 pg (27.0-32.0); Mean Corpuscular Volume 96.4 fL (81-99); Mean Platelet Vol. 9.7 fl (6.2-12.0); Monocyte# 0.49 X10^3/uL; Monocyte% 7.7 % (0-10); NRBC Flagged by Analyzer 0 % (0-5); Neutrophil # 4.54 X10^3/uL (2.7-7.7); Neutrophil % 71.6 % (47-70); Platelet Count 206 K/mm3 (150-450); RBC Distribution Width SD 49.9 fl (35.1-43.9); Red Blood Count 3.93 M/mm3 (4.2-5.4); White Blood Count 6.3 K/mm3 (4.4-11.0)
[2022-01-01 14:01] LABS: Bedside Glucose 90 mg/dL (74-106)
--- NOTE | 2022-01-01 14:07 | CM.ED ---
VERONICA met with patient and her . Emotional support provided. VERONICA remains available if needs arise. Diana HELMS
[2022-01-01 14:08] LABS: Partial Thromboplast Time 27.4 Seconds (24.1-36.2); Prothrombin Time (Protime)PT. 12.8 SECONDS (11.7-14.9)
[2022-01-01 14:10] LABS: Anion Gap 7 (5-15); BUN 21 mg/dL (7-18); BUN/Creat Ratio 25.4 RATIO (10-20); Calcium,Total 9.3 mg/dL (8.5-10.1); Chloride 99 mmol/L (98-107); Creatinine, Serum 0.83 mg/dL (0.55-1.02); EST Glomerular Filtration Rate 70 mL/min (>60); Est Glom Filt Rate - Afr Amer 85 mL/min (>60); Glucose 91 mg/dL (74-106); Potassium 3.8 mmol/L (3.5-5.1); Sodium Level 132 mmol/L (136-145); Troponin-I HS 7 pg/mL (3.0-54.0)
--- NOTE | 2022-01-01 14:42 | CT_ITS ---
STUDY: CTA HEAD AND NECK WITH CONTRAST REASON FOR EXAM: Female, 81 years old. TIA RADIATION DOSAGE (If Supplied By Facility): CTDIvol = ( 15.31 ) mGy, DLP = ( 517.08 ) mGycm TECHNIQUE: CT angiography was performed with a multi-detector CT scanner. Data acquisition was obtained from the skull base through the vertex following intravenous administration of IV 100mL [id number]. MIP images were reconstructed from the axial data set. Post-processing of the angiographic images was performed, with multiplanar reformation and 3D reconstruction. Individualized dose optimization techniques were used for this CT. COMPARISON: No relevant priors. FINDINGS: Normal bilateral petrous carotid arteries. Normal right cavernous carotid artery with a normal supraclinoid bifurcation. Normal left cavernous carotid artery with a normal supraclinoid bifurcation. Normal right A1 segments of the anterior cerebral artery. Normal left A1 segments of the anterior cerebral artery. Normal intact anterior communicating artery (ACOM). Normal bilateral A2 segments of the anterior cerebral arteries. Normal right M1 and M2 segments of the middle cerebral arteries, with a normal M1 bifurcation. Normal left M1 and M2 segments of the middle cerebral arteries, with a normal M1 bifurcation. Normal right posterior communicating artery (PCOM). Normal left posterior communicating artery (PCOM). Normal bilateral vertebral arteries. Normal basilar artery with a normal basilar bifurcation. The visualized bilateral superior cerebellar (SCA) arteries are normal. Normal bilateral P1, P2 and visualized P3 segments of the posterior cerebral arteries. There is no demonstrated aneurysm of the [place]. There is no demonstrated abnormality of the visualized brain. AORTIC ARCH: There is atherosclerotic calcific plaque formation of the aortic arch and great vessels arising from the aortic arch, without a hemodynamically significant stenosis. There is a normal origin of the brachiocephalic, left common carotid, and left subclavian arteries. Atherosclerotic plaque formation at the origin of the left subclavian artery and the right brachiocephalic artery. RIGHT CAROTID ARTERIES: Normal right common carotid artery (CCA). Normal right common carotid bulb. Normal origin of the right internal carotid (ICA) artery without a hemodynamically significant stenosis. Normal visualized cervical portion of the right internal carotid artery. Normal origin of the right external carotid artery (ECA). LEFT CAROTID ARTERIES: Normal left common carotid artery (CCA). Normal left common carotid bulb. There is mild atherosclerotic plaque formation of the origin of the left internal carotid artery with less than 50% cross sectional diameter stenosis. Normal visualized cervical portion of the left internal carotid artery. Normal origin of the left external carotid artery (ECA). VERTEBRAL ARTERIES: Normal bilateral vertebral arteries. CT/CTA Head AND Neck W/ Contrast IMPRESSION: Minimal calcific plaque at the origin of the left internal carotid artery causing less than 50% narrowing. Electronically Signed: Freddy Page MD at 15:39 EDT ,
--- NOTE | 2022-01-01 16:50 | HP.PCM.HOS_ITS ---
HPI - General General Date of Admission: 01/01/22 Date of Service: 01/01/22 Chief Complaint: expressive aphasia HPI Narrative [place] MOSQUERA, is a 81 F with a past medical history as outlined who presents via the ED on 01/01/2022 with a complaint of expressive aphasia. Patient realized that she could not verbalize her thoughts with a last known well being around 1 PM on 01/01/2022. She said her symptoms lasted for about 30 minutes. She denied any lightheadedness or dizziness, any numbness or tingling or any focal weakness. She also had an associated headache. She says she has had symptoms like this twice in the past both times accompanied by headache. Stroke was ruled out at those times and she was told that it was possibly due to migraines. Review of stems otherwise negative. Vitals in the ED showed blood pressure of 151/64, pulse rate of 71 and respiratory rate of 17 with oxygen saturation of 97% on room air. Chemistry showed hemoglobin of 12.7 with WBC of 6.3 and platelets of 206. INR is 1. Chemistry showed sodium of 132 with potassium of 3.8 and bicarb of 26 with anion gap of 7. CT of the brain showed no acute intracranial pathology and showed chronic involutional changes and CTA of the head and neck showed minimal calcific plaque at the origin of hte left internal carotid artery causing less than 50% narrowing. She is being admitted to be managed for TIA to rule out a stroke. [facility] Medical History Benign positional vertigo Essential (primary) hypertension Fibromuscular dysplasia of carotid artery Hypothyroidism Ocular migraine (09/08/20) Osteoarthritis Rheumatoid arthritis Secondary pulmonary arterial hypertension Stress incontinence TIA (transient ischemic attack) (08/25/20) Home Medications oxybutynin chloride 5 mg tablet 5 mg PO DAILY bladder spasms 12/20/13 [History Last Taken 08/25/20] levothyroxine 100 mcg tablet 100 mcg PO SUTUWEFRSA thyroid 12/21/13 [History Last Taken 08/24/20] abatacept (with maltose) 250 mg intravenous solution (Orencia (with maltose)) 250 mg IV QMONTH RA 08/26/17 [History Last Taken 08/22/20] cholecalciferol (vitamin D3) 25 mcg (1,000 unit) tablet 1,000 unit PO QHS supplement 05/14/18 [History Last Taken 08/24/20] levothyroxine 100 mcg tablet 150 mcg PO MOTH thyroid 05/14/18 [History Last Taken 08/25/20] multivitamin with minerals 1 tab PO QHS supplement 05/14/18 [History Last Taken 08/24/20] leucovorin calcium 5 mg tablet 5 mg PO MO supplement 09/29/19 [History Last Taken 08/22/20] methotrexate sodium 2.5 mg tablet 10 mg PO AHUJA RA 09/29/19 [History Last Taken 08/21/20] aspirin 81 mg chewable tablet 81 mg PO QHS heart health 08/25/20 [History Last Taken 08/24/20] hydrochlorothiazide 12.5 mg capsule 12.5 mg PO DAILY 09/29/20 [History Last Taken Unknown] meloxicam 7.5 mg tablet 7.5 mg PO DAILY Pain Score 1-10 09/29/20 [History Last Taken Unknown] rosuvastatin 10 mg tablet 10 mg PO DAILY 09/29/20 [History Last Taken Unknown] Allergy/AdvReac Type Severity Reaction Status Date / Time lisinopril AdvReac Severe Other Verified 12/11/21 06:21 ANTIVIRAL AdvReac severe Uncoded 10/05/21 07:14 diarrhea Family History Sister Breast cancer Heart disease Myocardial infarction age 72 Father Heart disease Myocardial infarction, Onset Age: 69 from [place] age 69 Brother Heart disease Myocardial infarction Age 65 CABG CAD (coronary artery disease) CABG Surgical History H/O basal cell carcinoma excision H/O squamous cell carcinoma excision History of breast biopsy History of cholecystectomy History of colon resection History of herniorrhaphy History of knee replacement History of total hip arthroplasty S/P spinal surgery Status post ablation of incompetent vein using laser (09/2021) Social History Smoking Status: Never smoker alcohol intake: current details: occasionally substance use type: does not use caffeine: Yes what type of physical activity do you participate in: none seatbelt use: always do you feel safe at home: Yes additional social history: -[employer] Patient and are retired ROS Constitutional Constitutional: Denies anorexia, change in weight, chills, fever(s), malaise or weakness Eyes Eyes: Denies change in vision ENT HEENT: Reports abnormal hearing; Denies dysphagia, headache(s), sinus pressure or sore throat Cardiovascular Cardiovascular: Denies chest pain, dyspnea on exertion, edema, lightheadedness, orthopnea, palpitations, paroxysmal nocturnal dyspnea, rapid heart rate or syncope Respiratory/Chest Respiratory/Chest: Denies cough, dyspnea, productive cough, shortness of breath at rest or shortness of breath with exertion Gastrointestinal Gastrointestinal: Denies abdominal pain, constipation, diarrhea or dyspepsia Genitourinary Genitourinary: Denies burning urination or dysuria Musculoskeletal Musculoskeletal: Denies arthralgias, back pain, joint pain or myalgias Neurologic Neurologic: Reports abnormal speech and headache(s); Denies abnormal gait, confusion, dizziness, focal weakness, numbness, seizure-like activity, seizures, syncope, tingling or tremor(s) Psychiatric Psychiatric: Denies anxiety or depression Hematologic/Lymphatic Hematologic/Lymphatic: Denies anemia Vital Signs Vital Signs Vital Signs: 01/01/22 13:36 01/01/22 13:42 01/01/22 13:39 Temperature 98.6 F Temperature Source Temporal Pulse Rate 74 74 Respiratory Rate 19 H 19 H Blood Pressure 162/100 H 167/64 H Blood Pressure Mean 120 98 Pulse Ox 99 99 Oxygen Delivery Method Room Air Room Air Room Air 01/01/22 15:29 01/01/22 16:27 Temperature Temperature Source Pulse Rate 86 71 Respiratory Rate 19 H 17 Blood Pressure 115/102 H 151/64 H Blood Pressure Mean 106 93 Pulse Ox 98 97 Oxygen Delivery Method Room Air Room Air Weight Weight: 123 lb 14.397 oz Body Mass Index (BMI) 21.2 Physical Exam Const alert, oriented x3 and no apparent distress General Appearance: cooperative HEENT normocephalic, head/scalp atraumatic, hearing grossly normal bilaterally and moist oral mucous membranes Mouth: oral and palatal mucosa normal Eyes PERRL, EOMs intact bilaterally and conjunctivae normal Neck no lymphadenopathy, supple and no JVD Resp normal respiratory effort, no retractions, no use of accessory muscles and clear to auscultation bilaterally Cardio regular rate, regular rhythm, S1 normal heart sound, S2 normal heart sound and no murmurs GI normal to inspection, nondistended, normoactive bowel sounds, soft to palpation, non-tender and non-distended Extremity normal to inspection, full ROM and no clubbing, cyanosis or edema Neuro oriented x3, CN's II-XII intact bilaterally, moves all extremities and no focal motor deficits Sensorium / Orientation: awake and alert Motor Exam: strength 5/5 throughout Psych affect normal Results Lab / Micro Data Result Diagrams: 01/01/22 13:40 01/01/22 13:40 Labs: Laboratory Results - last 24 hr 01/01/22 13:36: POC Glucose 90 01/01/22 13:40: WBC 6.3, RBC 3.93 L, Hgb 12.7, Hct 37.9, MCV 96.4, MCH 32.3 H, MCHC 33.5, RDW Std Deviation 49.9 H, RDW Coeff of Miguel 14.0, Plt Count 206, MPV 9.7, Immature Gran % (Auto) 0.200, Neut % (Auto) 71.6 H, Lymph % (Auto) 17.0 L, Wood % (Auto) 7.7, Eos % (Auto) 2.7, Baso % (Auto) 0.8, Absolute Neuts (auto) 4. 5, Absolute Lymphs (auto) 1.08, Nucleated RBC % 0 01/01/22 13:40: PT 12.8, INR 1.0, APTT 27.4 01/01/22 13:40: Sodium 132 L, Potassium 3.8, Chloride 99, Carbon Dioxide 26.0, Anion Gap 7, BUN 21 H, Creatinine 0.83, Estim Creat Clear Calc 45.90, Est GFR (MDRD) Af Amer 85, Est GFR (MDRD) Non-Af 70, BUN/Creatinine Ratio 25.4 H, Glucose 91, Calcium 9.3, Troponin I High Sens [address] 01/01/22 13:25 IMPRESSION: Chronic involutional changes of the brain. N.B. : The above Results were Read Back by Freddy Page MD to Laurence Deleon and understanding confirmed on 01/01/2022 13:40:37 (ET). Electronically Signed: Freddy Page MD at 13:41 EDT , Chest X-Ray 01/01/22 13:50 IMPRESSION: Hyperinflation. The lungs are clear. Electronically Signed: Freddy Page MD at 14:30 EDT , Head/Neck CTA 01/01/22 14:42 IMPRESSION: Minimal calcific plaque at the origin of the left internal carotid artery causing less than 50% narrowing. Electronically Signed: Freddy Page MD at 15:39 EDT , Assessment & Plan Assessment/Plan (1) Brain TIA: PLAN: Plan #TIA, to rule out CVA * Admitted with a complaint of expressive aphasia which lasted for about 30 minutes And had resolved by the time she got to the ED. * CT of the brain showed no acute intracranial pathology and CT of the head and neck showed minimal calcific plaque at the origin of the left internal carotid artery causing less than 50% narrowing * Admit to PCU. * Start on p.o. aspirin 81 mg daily as well as high intensity statin * Has had similar symptoms in the past which was thought to be due to migraine after stroke was ruled out * Get MRI of the brain tomorrow. 2D echo ordered * PT OT consulted. Keep n.p.o. for now until she passes swallow evaluation * For neurology consult based on MRI results. * Allow for permissive hypertension for now. #Hypertension: Hold BP meds to allow for permissive hypertension for now. #Hypothyroidism: On Synthroid #Hyperlipidemia: On rosuvastatin 10 mg daily. #History of rheumatoid arthritis: On abatacept DVT prophylaxis: Lovenox Code status: full code * Patient and her counseled extensively about different types of CODE STATUS including full code, DNR CCA and DNR CCA. Patient elects to be full code. * Total [id number] time 17 minutes. Charges/Coding Visit Charges OBSV E&M: 53692 Initial observation care L3 Procedures Hospitalists Procedures: 90820 Advncd Care Plan 30 Min
--- NOTE | 2022-01-01 17:26 | MRI_ITS ---
STUDY: MRI BRAIN WITHOUT CONTRAST REASON FOR EXAM: Female, 81 years old. expressive aphasia TECHNIQUE: Standardized multiplanar fat and water weighted pulse sequences were obtained. COMPARISON: CT of the brain 01/01/2022 MRI of the brain 08/25/2020 FINDINGS: Mild atrophy and minor periventricular white matter ischemic change without mass effect or restricted diffusion.. Normal bilateral basal ganglia. Normal thalami. There is no extra-axial fluid accumulation. Normal flow voids within the major intracranial circulation suggesting patency by spin echo criteria. Partial empty sella deformity of uncertain etiology. Normal, infundibular stalk, optic chiasm and hypothalamus. Normal tectal plate and pineal gland. Normal midbrain, deb and medulla. Normal cerebellum. Normal basal cisterns. Normal bilateral temporal bones. Normal bilateral internal auditory canals. Postsurgical changes of the orbits. Normal visualized paranasal sinuses. Normal calvarium and skull base. Normal visualized soft tissue structures. Normal visualized upper cervical spine. No significant change since prior exam MRI/Brain without Contrast IMPRESSION: Mild atrophy and minor periventricular white matter ischemic change without evidence for acute infarct Electronically Signed: Luis Alberto Xiao MD at 19:55 EDT ,
[2022-01-01] MEDS: LORazepam 2 MG/ML Syringe 1 MG IV (18:45)
--- NOTE | 2022-01-01 19:10 | NURSING ---
This RN with pt during MRI for monitoring after IV Ativan. See VS.
--- NOTE | 2022-01-01 19:38 | NURSING ---
patient back on floor from MRI with admission nurse. Pt resting in bed at this time.
[2022-01-01] MEDS: Atorvastatin Calcium 80 MG Tablet PO (22:30)
[2022-01-02 00:26] VITALS: BMI 21.5
[2022-01-02 02:00] VITALS: BP 135/78; PULSE 78; RESP 17; TEMP 36.6; O2SAT 98
[2022-01-02 03:00] VITALS: PULSE 83
[2022-01-02 06:09] LABS: Absolute Lymphocyte Count 0.73 X10^3/uL (0.83-4.51); Absolute Neutrophil Count 3.6 X10^3/uL (2.0-7.7); Basophil# 0.07 X10^3/uL; Basophil% 1.4 % (0-1); Eosinophil# 0.18 X10^3/uL; Eosinophils% 3.6 % (0-5); Hematocrit 36.9 % (37-47); Hemoglobin 12.3 g/dL (12.0-15.0); Lymphocyte # 0.73 X10^3/ul (0.83-4.51); Lymphocyte % 14.4 % (19-41); Mean Corp Hgb Conc 33.3 g/dL (32-36); Mean Corpuscular Hgb 31.7 pg (27.0-32.0); Mean Corpuscular Volume 95.1 fL (81-99); Mean Platelet Vol. 9.9 fl (6.2-12.0); Monocyte# 0.48 X10^3/uL; Monocyte% 9.5 % (0-10); NRBC Flagged by Analyzer 0 % (0-5); Neutrophil % 70.9 % (47-70); Platelet Count 194 K/mm3 (150-450); RBC Distribution Width SD 48.3 fl (35.1-43.9); Red Blood Count 3.88 M/mm3 (4.2-5.4); White Blood Count 5.1 K/mm3 (4.4-11.0)
[2022-01-02 06:40] LABS: Anion Gap 6 (5-15); BUN 18 mg/dL (7-18); BUN/Creat Ratio 27.2 RATIO (10-20); Chloride 103 mmol/L (98-107); Cholesterol 99 mg/dL (200); Creatinine, Serum 0.66 mg/dL (0.55-1.02); EST Glomerular Filtration Rate 91 mL/min (>60); Est Glom Filt Rate - Afr Amer 110 mL/min (>60); Glucose 83 mg/dL (74-106); High Density Lipoprotein 48 mg/dL; Potassium 3.8 mmol/L (3.5-5.1); Sodium Level 136 mmol/L (136-145); Triglycerides 26 mg/dL; Very Low Density Lipoprotein 5 mg/dL (5-40)
[2022-01-02 07:20] VITALS: O2SAT 100
[2022-01-02] MEDS: Aspirin 81 MG TAB.CHEW PO (08:33)
[2022-01-02] MEDS: Enoxaparin 40 MG/0.4 ML Syringe SC (08:33)
[2022-01-02 09:00] VITALS: PULSE 85
[2022-01-02 10:00] VITALS: BP 151/57; PULSE 54; RESP 16; TEMP 36.2; O2SAT 98
--- NOTE | 2022-01-02 10:51 | DS.PCM_ITS ---
Providers Date of Admission: 01/01/22 Date of Discharge: 01/02/22 Primary Care Physician: Dr. Josep Arnold MD Reason For Visit: TIA Diagnosis Discharge Diagnosis (1) Brain TIA: Status: Acute Code(s): G45.9 - Transient cerebral ischemic attack, unspecified Medications at Discharge Home Medications oxybutynin chloride 5 mg tablet 5 mg PO DAILY bladder spasms 12/20/13 levothyroxine 100 mcg tablet 100 mcg PO SUTUWEFRSA thyroid 12/21/13 cholecalciferol (vitamin D3) 25 mcg (1,000 unit) tablet 1,000 unit PO QHS supplement 05/14/18 levothyroxine 100 mcg tablet 150 mcg PO MOTH thyroid 05/14/18 multivitamin with minerals 1 tab PO QHS supplement 05/14/18 leucovorin calcium 5 mg tablet 5 mg PO MO supplement 09/29/19 methotrexate sodium 2.5 mg tablet 10 mg PO AHUJA RA 09/29/19 aspirin 81 mg chewable tablet 81 mg PO QHS heart health 08/25/20 hydrochlorothiazide 12.5 mg capsule 12.5 mg PO DAILY water pill 09/29/20 meloxicam 7.5 mg tablet 7.5 mg PO DAILY Pain Score 1-10 09/29/20 rosuvastatin 10 mg tablet 10 mg PO QHS cholesterol lowering 09/29/20 lorazepam 0.5 mg tablet 0.5 mg PO QHS PRN PRN Sleep 01/01/22 Hospital Course Operations None Procedures - (CT brain/chest x-ray/CTA head and neck/MRI brain) Summary of Care Provided Minutes Spent on Discharge: 30 Hospital Course: Mrs. Flood is an 81-year-old female presented to the emergency department was [facility] on 01/01/2022 with expressive aphasia. This episode occurred approximately 1 PM and was followed by headache. She states that her symptoms lasted for about 15 to 30 minutes and then resolved spontaneously. She denied any associated lightheadedness or dizziness and had no associated tingling, numbness, or focal weakness. She reported that she has had this twice in the past and has followed up with neurology epic [facility]. They feel that these are migrainous related episodes and that she is not having TIAs. Upon presentation her vital signs were relatively stable other than a mildly elevated blood pressure 151/64. Her blood pressures did resume to her baseline after admission. Her laboratory data was overall unimpressive. The CT of her brain showed no acute intracranial pathology and only chronic involutional changes. CTA of her head and neck showed minimal calcific plaque of the left internal carotid artery at the origin causing less than 50% narrowing which is stable when compared to previous studies. She was admitted to the telemetry floor for further work-up. She had an echocardiogram approximately 1 year ago that showed normal EF and no sign of PFO or ASD on bubble study. An MRI of her brain was obtained and showed mild atrophy and minor periventricular white matter ischemic changes without any evidence of acute infarct. As she has had significant follow-up for previous episodes like this with neurology and a negative study at this time and has resolved symptoms completely we will discharge her home and have her continue her aspirin. I have made a referral to neurology here in town as she does indicate that it is far for her to drive to [place]. 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 She does indicate that he likely has not much time left and she has been his sole care provider since he was diagnosed this summer. She was referred to see Dr. Valverde and call for an appointment to get in soon as he has an available appointment. I have also instructed her to follow-up with her primary care physician within the next 2 weeks. 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 States she was seen by a neurologist up in [facility] who feels that her aphasia associated with headaches is migraine related. She reports he stated that he could not call a TIA given the fact that it was associated with a headache. She states this too was associated with a headache and her aphasia symptoms resolved after about 15 minutes. She had no further events since that time. She would like to follow-up with neurology closer if possible. Const alert, oriented x3, no apparent distress, average body habitus, no limitations, healthy appearing and well nourished Constitutional Narrative: Older white female sitting up in bed, appears comfortable, nontoxic, no speech abnormalities at all General Appearance: cooperative, comfortable, well kempt and well developed Orientation / Consciousness: awake Exam Limitations: no limitations HEENT normocephalic, head/scalp atraumatic, hearing grossly normal bilaterally and moist oral mucous membranes Eyes PERRL and EOMs intact bilaterally Resp normal respiratory effort, no retractions, no use of accessory muscles and clear to auscultation bilaterally Auscultation: Negative for crackles, rales, rhonchi or wheezes Cardio regular rate, regular rhythm, S1 normal heart sound, S2 normal heart sound, no murmurs, no rub, no gallops, no clicks and no JVD GI normal to inspection, nondistended, normoactive bowel sounds, soft to palpation, non-tender and non-distended; Negative for hepatosplenomegaly Extremity no clubbing, cyanosis or edema Extremity Narrative: 2+ pedal pulses Neuro oriented x3, CN's II-XII intact bilaterally, moves all extremities, no focal motor deficits and no sensory deficits noted Neuro Narrative: Very minimal generalized weakness with proximal musculature weaker than distal Sensorium / Orientation: awake, alert, oriented to person, oriented to place and oriented to time Speech: speech normal Psych affect normal Psych Narrative: Very pleasant and appropriately interactive, no sign of mood disorder Weight / BMI Weight Weight: 55.202 kg Body Mass Index (BMI) 21.5 ABG / Lab / Microbiology Data Result Diagrams: 01/02/22 05:40 01/02/22 05:40 Laboratory: Laboratory Results - last 24 hr 01/01/22 13:36: POC Glucose 90 01/01/22 13:40: WBC 6.3, RBC 3.93 L, Hgb 12.7, Hct 37.9, MCV 96.4, MCH 32.3 H, MCHC 33.5, RDW Std Deviation 49.9 H, RDW Coeff of Miguel 14.0, Plt Count 206, MPV 9.7, Immature Gran % (Auto) 0.200, Neut % (Auto) 71.6 H, Lymph % (Auto) 17.0 L, Mayes % (Auto) 7.7, Eos % (Auto) 2.7, Baso % (Auto) 0.8, Absolute Neuts (auto) 4.5, Absolute Lymphs (auto) 1.08, Nucleated RBC % 0 01/01/22 13:40: PT 12.8, INR 1.0, APTT 27.4 01/01/22 13:40: Sodium 132 L, Potassium 3.8, Chloride 99, Carbon Dioxide 26.0, Anion Gap 7, BUN 21 H, Creatinine 0.83, Estim Creat Clear Calc 45.90, Est GFR (MDRD) Af Amer 85, Est GFR (MDRD) Non-Af 70, BUN/Creatinine Ratio 25.4 H, Glucose 91, Calcium 9.3, Troponin I High Sens 7 01/02/22 05:40: WBC 5.1, RBC 3.88 L, Hgb 12.3, Hct 36.9 L, MCV 95.1, MCH 31.7, MCHC 33.3, RDW Std Deviation 48.3 H, RDW Coeff of Miguel 14.0, Plt Count 194, MPV 9.9, Immature Gran % (Auto) 0.200, Neut % (Auto) 70.9 H, Lymph % (Auto) 14.4 L, Mayes % (Auto) 9.5, Eos % (Auto) 3.6, Baso % (Auto) 1.4 H, Absolute Neuts (auto) 3.6, Absolute Lymphs (auto) 0.73 L, Nucleated RBC % 0 01/02/22 05:40: Sodium 136, Potassium 3.8, Chloride 103, Carbon Dioxide 27.0, Anion Gap 6, BUN 18, Creatinine 0.66, Estim Creat Clear Calc 36.50, Est GFR (MDRD) Af Amer 110, Est GFR (MDRD) Non-Af 91, BUN/Creatinine Ratio 27.2 H, Glucose 83, Calcium 9.0, Triglycerides 26, Cholesterol 99, LDL Cholesterol 46, VLDL Cholesterol 5, HDL Cholesterol 48 Radiography Diagnostic Testing: Radiology Impression Brain CT 01/01/22 13:25 IMPRESSION: Chronic involutional changes of the brain. N.B. : The above Results were Read Back by Freddy Page MD to Laurence Deleon and understanding confirmed on 01/01/2022 13:40:37 (ET). Electronically Signed: Freddy Page MD at 13:41 EDT , Chest X-Ray 01/01/22 13:50 IMPRESSION: Hyperinflation. The lungs are clear. Electronically Signed: Frdedy Page MD at 14:30 EDT , Head/Neck CTA 01/01/22 14:42 IMPRESSION: Minimal calcific plaque at the origin of the left internal carotid artery causing less than 50% narrowing. Electronically Signed: Freddy Page MD at 15:39 EDT , Brain MRI 01/01/22 17:26 IMPRESSION: Mild atrophy and minor periventricular white matter ischemic change without evidence for acute infarct Electronically Signed: Luis Alberto Xiao MD at 19:55 EDT , D/C Instructions Discharge Diet: Low fat / Low cholesterol Discharge Activity: Return to Normal Activity Meaningful Use Info Meaningful Use Diagnoses (Choose all that apply): None applicable Discharge Plan Admission Admit Date/Time: 01/01/22 16:46 Primary Reason for Your Visit: aphasia Attending Provider: Krista Leavitt Primary Care Provider: Josep Arnold Consulting Providers: Danitza Ang Discharge Orders/Prescriptions Prescriptions: Continued meloxicam 7.5 mg tablet 7.5 mg PO DAILY rosuvastatin 10 mg tablet 10 mg PO QHS hydrochlorothiazide 12.5 mg capsule 12.5 mg PO DAILY oxybutynin chloride 5 MG tablet 5 mg PO DAILY Label Comments: URINARY URGENCY levothyroxine 100 MCG tablet 100 mcg PO SUTUWEFRSA Label Comments: takes every day but Saturday and . Takes 150 mcg on Saturday and levothyroxine 100 MCG tablet 150 mcg PO MOTH Label Comments: TAKE ONE TABLET BY MOUTH ONE TIME DAILY , EXCEPT TAKE ONE AND ONE-HALFTABLETS ON SATURDAY AND SATURDAY multivitamin with minerals 1 EACH tablet 1 tab PO QHS cholecalciferol (vitamin D3) 1,000 UNIT tablet 1,000 unit PO QHS leucovorin calcium 5 mg tablet 5 mg PO MO Label Comments: take 1 tablet by mouth every SATURDAY methotrexate sodium 2.5 mg tablet 10 mg PO AHUJA Label Comments: take 5 tablets by mouth every week aspirin 81 MG tablet,chewable 81 mg PO QHS lorazepam 0.5 mg tablet 0.5 mg PO QHS PRN PRN (Reason: Sleep) Label Comments: take 1 tablet by mouth at bedtime Referrals / Follow Up: Josep Arnold MD [Primary Care Provider] - Within 2 Weeks Laci Valverde MD [Non-Staff] - See Referral Note (call for an appt to be seen as soon as appt available) Disposition Disposition (needs filled in before D/C Order can be placed): Home, Self Care Charges/Coding Visit Charges Inpatient E&M: 94437 Disch Hosp
--- NOTE | 2022-01-02 11:00 | CASEMGMT ---
SW did not complete a PHQ 9 as per physician patient did not have a TIA or Stroke. Jailyn BRIONES
== END 2022-01-02 10:53 | disposition home or self-care (01) ==
LOC: ED 16:08 → PCU 17:07
PROVIDERS: Admitting Provider Student in an Organized Health Care Education/Training Program; Emergency Provider Emergency Medicine; PCP Family Medicine; Visit Provider Internal Medicine
DX: G45.9 Transient cerebral ischemic attack, unspecified (principal); M05.10 Rheumatoid lung disease with rheumatoid arthritis of unspecified site; I27.21 Secondary pulmonary arterial hypertension; R47.01 Aphasia; Z79.82 Long term (current) use of aspirin; I10 Essential (primary) hypertension; E03.9 Hypothyroidism, unspecified; N39.3 Stress incontinence (female) (male); Z79.899 Other long term (current) drug therapy; Z79.890 Hormone replacement therapy; M19.90 Unspecified osteoarthritis, unspecified site
CPT/HCPCS: 70450; 70496; 70498; 70551; 71045; 80048; 80061; 82962; 84484; 85025; 85610; 85730; 93005; 94762; 96372; 96374; 99218; 99284; Q9967; A4216; G0378

== ENCOUNTER → 2022-11-06 | Outpatient (CLI) | payer MEDICARE, OTHER, SELFPAY ==
[2022-11-06 14:22] LABS: AST(SGOT) 28 U/L (15-37); Alanine Aminotransfer ALT/SGPT 26 U/L (13-56); Albumin, Serum 3.9 g/dL (3.2-5.0); Alkaline Phosphatase 53 U/L (45-117); Bilirubin, Direct 0.25 mg/dL (0.00-0.30); Cholesterol 99 mg/dL (200); Globulin 3.1 g/dL (2.2-4.2); High Density Lipoprotein 47 mg/dL; Triglycerides 32 mg/dL; Very Low Density Lipoprotein 6 mg/dL (5-40)
== END | disposition home or self-care (01) ==
PROVIDERS: PCP Family Medicine; Referring Provider Internal Medicine Cardiovascular Disease; Visit Provider Internal Medicine Cardiovascular Disease
DX: I10 Essential (primary) hypertension (principal); R07.9 Chest pain, unspecified
CPT/HCPCS: 36415; 80061; 80076

== ENCOUNTER → 2022-11-16 | Outpatient (CLI) | payer MEDICARE, OTHER, SELFPAY ==
--- NOTE | 2022-11-16 09:57 | STRESSREP ---
Stress Test Report Pharmacologic myocardial perfusion stress test. 82-year-old lady with a history of chest pain Resting EKG demonstrates sinus rhythm with a rate of 67 bpm. Resting blood pressure is 142/78 mmHg. 0.4 mg of regadenoson was infused per usual protocol followed by rapid intravenous saline flush injection. Continuous EKG monitoring was performed. The maximum heart rate was 86 bpm which was 62% of max impacted heart rate the maximum workload was 1 metabolic equivalent. At rest there were no ST or T wave changes noted to suggest ischemia and at peak infusion nonspecific ST changes were noted which did not meet the criteria for ischemia. No clinical angina is noted. The final blood pressure was 124/68 mmHg. Myocardial perfusion protocol. 11 mCi of technetium 99m sestamibi was injected at rest. 0.4 mg of regadenoson was infused per usual protocol. At peak infusion 33.6 mCi of technetium 99m sestamibi was injected stress images were obtained stress and rest images were reconstructed and compared in the short axis vertical long and horizontal long axis. Gated images were also obtained. Perfusion SPECT analysis: Review of the stress images demonstrate normal uptake of tracer noted in all areas of the myocardium. The resting images similar demonstrated normal uptake of tracer noted in all areas of the myocardium. No areas of reversibility are noted to suggest ischemia and no previous infarct is noted. Gated SPECT analysis: The gated ejection fraction is 85%. Conclusion: Normal pharmacologic myocardial perfusion stress test. Preserved ejection fraction.
== END | disposition home or self-care (01) ==
PROVIDERS: PCP Family Medicine; Referring Provider Internal Medicine Cardiovascular Disease; Visit Provider Internal Medicine Cardiovascular Disease
DX: R07.9 Chest pain, unspecified (principal)
CPT/HCPCS: 78452; 93017; A9500; A4216; J2785

== ENCOUNTER 2024-03-08 12:29 | Emergency (ER) | payer MEDICARE, OTHER, SELFPAY ==
[2024-03-08 12:30] VITALS: BP 177/76; PULSE 75; RESP 18; TEMP 36.8; O2SAT 100; BMI 22.3
--- NOTE | 2024-03-08 12:51 | EX.ED.DYSGE1 ---
HPI <RICHIE Palm - Last Filed: 03/08/24 13:09> History of Present Illness Chief Complaint: Chest Other Narrative Narrative: Patient is an 84-year-old female with history of hypertension, rheumatoid arthritis, history of parotid gland obstruction who presents to the emergency department with worsening swelling to the right side of her neck, that gets bigger with eating. She denies any fever or chills. Patient states she went to the urgent care yesterday, placed on Keflex, she states she usually takes Augmentin for this. She has seen ENT in the past for this however she currently does not have one now. This has been ongoing for 2 days. She denies any fever chills, chest pain, shortness of breath. No difficulty swallowing. 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 Benign positional vertigo Hypothyroidism Rheumatoid arthritis Osteoarthritis TIA (transient ischemic attack) (08/25/20) Stress incontinence Home Medications ?Medication ?Instructions ?Recorded ?Last Taken ?Type oxybutynin chloride 5 mg tablet 5 mg PO DAILY bladder spasms 12/20/13 01/01/22 History levothyroxine 100 mcg tablet 100 mcg PO SUTUWEFRSA thyroid 12/21/13 12/30/21 History multivitamin with minerals 1 tab PO QHS supplement 05/14/18 12/31/21 History leucovorin calcium 5 mg tablet 5 mg PO MO supplement 09/29/19 12/25/21 History methotrexate sodium 2.5 mg tablet 10 mg PO AHUJA RA 09/29/19 12/31/21 History aspirin 81 mg chewable tablet 81 mg PO QHS heart health 08/25/20 12/31/21 History hydrochlorothiazide 12.5 mg capsule 12.5 mg PO DAILY water pill 09/29/20 01/01/22 History rosuvastatin 10 mg tablet 10 mg PO QHS cholesterol lowering 09/29/20 12/31/21 History lorazepam 0.5 mg tablet 0.5 mg PO QHS PRN PRN Sleep 01/01/22 12/31/21 History cholecalciferol (vitamin D3) 25 1,000 unit PO .Three times a week 11/07/23 Unknown History mcg (1,000 unit) tablet supplement levothyroxine 100 mcg tablet 150 mcg PO .Mon thyroid 11/07/23 Unknown History amoxicillin 875 mg-potassium 1 tab PO BID #20 tabs 03/08/24 Unknown Rx clavulanate 125 mg tablet Allergy/AdvReac Type Severity Reaction Status Date / Time lisinopril AdvReac Severe Other Verified 03/08/24 12:30 ANTIVIRAL AdvReac severe Uncoded 11/07/23 11:15 diarrhea Family History Sister Breast cancer Heart disease Myocardial infarction age 72 Father Heart disease Myocardial infarction, Onset Age: 69 from ID age 69 Brother Heart disease Myocardial infarction Age 65 CABG CAD (coronary artery disease) CABG Surgical History History of appendectomy Status post ablation of incompetent vein using laser (09/2021) History of breast biopsy History of knee replacement History of total hip arthroplasty History of herniorrhaphy History of colon resection History of cholecystectomy H/O basal cell carcinoma excision H/O squamous cell carcinoma excision S/P spinal surgery Social History Smoking Status: Never smoker alcohol intake: current details: occasionally substance use type: does not use caffeine: Yes what type of physical activity do you participate in: none seatbelt use: always do you feel safe at home: Yes additional social history: -[employer] Patient and are retired ROS <RICHIE Palm - Last Filed: 03/08/24 13:09> ROS ED ROS Narrative Constitutional: Negative for fever, chills, weight loss, weakness Eyes: Negative for vision loss, vision change, double vision ENT: Negative for any sore throat, ear pain, congestion. Positive for right sided jaw swelling Cardiovascular: Negative for any chest pain, tightness, palpitations Respiratory: Negative for any cough, sputum production, hemoptysis, dyspnea, dyspnea on exertion, orthopnea Gastrointestinal: Negative for any abdominal pain, nausea, vomiting, diarrhea, constipation, blood in stool, blood in vomit : Negative for any urinary frequency, dysuria, retention, blood in urine Muscle skeletal: Negative for any neck pain, back pain Neurological: Negative for any headache, syncope, dizziness Skin: Negative for any rashes, itching, abrasions, lacerations Psychiatric: Negative for any depression, anxiety, stress, suicidal ideation, homicidal ideation Hematologic: Negative for any excessive bruising, easy bleeding EXAM <RICHIE Palm - Last Filed: 03/08/24 13:09> Physical Exam Narrative Exam Narrative: Vital signs reviewed. HEET: Head normocephalic atraumatic, TMs clear bilaterally. Posterior pharynx is clear, moist mucous membranes. Nares clear bilaterally. Neck: Patient does have some swelling to the right jaw, this is around the parotid plan. No signs of meningismus. Negative for any trismus. No significant lymphadenopathy. Cardiac: Regular rate and rhythm no murmurs gallops or rubs, equal peripheral pulses bilaterally. Respiratory: Lungs clear to auscultation bilaterally. No chest tenderness. Abdomen: Soft, nontender, nondistended. No abdominal bruit or pulsatile masses. No hepatosplenomegaly Extremities: No peripheral edema, no signs of gross trauma or deformity. Active full range of motion of all extremities. Neuro: Cranial nerves II through XII intact, no focal neurological deficits. Skin: Clean dry and intact with no rash, purpura, petechiae, vesicles or pustules. Backs/flank: No CVA tenderness, no midline spinal tenderness, no deformity. Psych: Normal mood and affect. No SI, HI or acute psychosis. Const Vital Signs: 03/08/24 12:30 03/08/24 12:37 Temperature 98.2 F Temperature Source Oral Pulse Rate 75 Respiratory Rate 18 Respiratory Pattern Normal Blood Pressure 177/76 H Blood Pressure Mean 109 Pulse Ox 100 Oxygen Delivery Method Room Air <Dr. Wilder Boss MD - Last Filed: 03/08/24 13:29> Physical Exam Const Vital Signs: 03/08/24 12:30 03/08/24 12:37 Temperature 98.2 F Temperature Source Oral Pulse Rate 75 Respiratory Rate 18 Respiratory Pattern Normal Blood Pressure 177/76 H Blood Pressure Mean 109 Pulse Ox 100 Oxygen Delivery Method Room Air MDM <RICHIE Palm - Last Filed: 03/08/24 13:09> MDM Treatment and Re-Evaluation :: Differential diagnosis includes however is not limited to: Parotid gland obstruction, salivary gland obstruction, cellulitis, tumor Patient appears generally well, vital signs are stable, patient is nontoxic-appearing. Presenting to the emergency department with complaints of parotid gland obstruction, swelling to the right side of her face. There is no evidence of any cellulitis, the area is soft, patient has no trismus or difficulty breathing or eating. At this time, patient will be placed on Augmentin, patient will continue to use sour hard candies, I will give the patient referral to ENT. She is happy with the plan of care, she will stop the Keflex. She is instructed return for any worsening symptoms. All questions were answered, patient stable for discharge. <Dr. Wilder Boss MD - Last Filed: 03/08/24 13:29> [facility] Narrative Medical decision making narrative: I have personally performed a face to face assessment of the patient and have reviewed the MARY Note. I performed a substantive portion of the visit including all aspects of the following. My nam findings include: History is [84-year-old female with several day history of right parotid inflammation. Saw in urgent care was started on Keflex yesterday. Has not seen any improvement. Denies any trouble swallowing or breathing. No fever.] Exam is [84-year-old female no acute distress. Vital signs stable afebrile. Pulse ox on percent on room air no hypoxia. H EENT exam posterior pharynx normal. Moist mucous membranes. Her right parotid is mildly swollen compared to the left. Neck nontender no lymphadenopathy. Lungs clear to auscultation. Heart regular rhythm no murmur. Abdomen soft nontender. Moving all 4 extremities. Nontender no edema. Neurologically she is awake and alert. She does have a mild red rash on her anterior chest just below her neck. It is about 4 inches x 3 inches and it does dawit. Is not tender. Is not warm to the touch. It does not itch.] Medical Decision Making [patient with parotid inflammation on the right. Requesting change in antibiotics from Keflex which. Will write a prescription for Augmentin for 10 days. Outpatient follow-up with ENT. Hard candy.] Other additions or changes: [None] Discharge Plan Triage Chief Complaint: Chest Other ED Midlevel Provider: Salvatore Lawton ED Provider: Wilder Boss Dx/Rx/DC Orders Clinical Impression: Salivary gland obstruction, Acute parotitis Instructions: ED Salivary Gland Stones Prescriptions: New amoxicillin-pot clavulanate 875-125 mg tablet 1 tab PO BID Qty: 20 0RF No Action rosuvastatin 10 mg tablet 10 mg PO QHS hydrochlorothiazide 12.5 mg capsule 12.5 mg PO DAILY oxybutynin chloride 5 MG tablet 5 mg PO DAILY Patient Comments: URINARY URGENCY levothyroxine 100 MCG tablet 100 mcg PO SUTUWEFRSA Patient Comments: takes every day but Saturday and . Takes 150 mcg on Saturday and multivitamin with minerals 1 EACH tablet 1 tab PO QHS leucovorin calcium 5 mg tablet 5 mg PO MO Patient Comments: take 1 tablet by mouth every SATURDAY methotrexate sodium 2.5 mg tablet 10 mg PO AHUJA Patient Comments: take 5 tablets by mouth every week cholecalciferol (vitamin D3) 25 mcg (1,000 unit) tablet 1,000 unit PO .Three times a week levothyroxine 100 mcg tablet 150 mcg PO .Sat Patient Comments: TAKE ONE TABLET BY MOUTH ONE TIME DAILY , EXCEPT TAKE ONE AND ONE-HALFTABLETS ON SATURDAY aspirin 81 MG tablet,chewable 81 mg PO QHS lorazepam 0.5 mg tablet 0.5 mg PO QHS PRN PRN (Reason: Sleep) Patient Comments: take 1 tablet by mouth at bedtime Primary Care Provider: Zane Potter Referrals: Josue Sanchez MD [Med Staff - Courtesy Staff] - Josep Arnold MD [Non-Staff] - Activity Restrictions/Additional Instructions: Stop the Keflex, start the Augmentin, twice a day for 10 days. Follow-up with ENT. Continue to use hard candies, use warm compresses. Return for any worsening symptoms. Print Language: Uzbek Disposition Disposition: Home, Self Care
--- OUTSIDE RECORDS SUMMARY | 2024-03-08 13:01 | XMS RPT_ITS | CCD ---
Author Organization [facility] Care Team Providers Care Email Production Consultant Name Role Phone Sissen PSS, Vignesh Unavailable Unavailable Wili Rudolph MD Unavailable Wili Rudolph MD Unavailable Wili Rudolph MD Unavailable Wili Rudolph MD Unavailable Jerry Arnold MD Primary Care Provider Viviane Reyes MD Unavailable [phone] Austen Fergusonril S Unavailable Sabina Jefferson MD Unavailable Grater SENIOR PUBLICATIONS SPECIALIST.DEJAN, Mando Unavailable Marie Salvador PT Unavailable Sissen PSS, Vignesh Unavailable Unavailable Wili Rudolph MD Unavailable Wili Rudolph MD Unavailable Wili Rudolph MD A Unavailable Wili Rudolph MD A Unavailable Jerry Arnold MD Primary Care Provider Viviane Reyes MD Unavailable [phone] Austen Ferguson MDril S Unavailable Sabina Jefferson MD Unavailable Grater SENIOR PUBLICATIONS SPECIALIST.EMISSION SPECIALIST, Mando Unavailable Marie Salvador PT Unavailable Sissen PSS, Vignesh Unavailable Unavailable Ronny BARNARD, Sabina Unavailable Gratelamine SENIOR PUBLICATIONS SPECIALIST.EMISSION SPECIALIST, Mando Unavailable Modesto PT, Marie Unavailable Modesto PT, Marie Unavailable Clayton BARNARD, Jerry Edwards Primary Care Provider Tariq BARNARD, Zane Clancy Primary Care Provider Jerry Arnold MD Primary Care Provider GEOFFREY DANIEL Attending Unavailable RONNY, SABINA Referring Unavailable ELDERYENNY, JERRY Edwards Primary Care Unavailable CLAYTON, JERRY Edwards Primary Care Unavailable CONTRERAS KRAUSE Attending Unavailable RONNY, SABINA Referring Unavailable GEOFFREY DANIEL Attending Unavailable JERRY ARNOLD Primary Care Unavailable MANDO GIRON Referring Unavailable JERRY ARNOLD Primary Care Unavailable POTTER, KATIE Attending Unavailable GEOFFREY DANIEL Attending Unavailable RONNY, SABINA Referring Unavailable ELDERBROSTORMY, JERRY Edwards Primary Care Unavailable GEOFFREY DANIEL Attending Unavailable SABINA JEFFERSON Referring Unavailable JERRY ARNOLD Primary Care Unavailable GEOFFREY DANIEL Attending Unavailable JERRY ARNOLD Primary Care Unavailable MANDO GIRON Referring Unavailable GEOFFREY DANIEL Attending Unavailable SABINA JEFFERSON Referring Unavailable BRENTBROJERRY BURROWS Primary Care Unavailable JERRY ARNOLD Primary Care Unavailable KRISTINN, DEE D Referring Unavailable POTTER, KATIE Primary Care Unavailable POTTER, KATIE Primary Care Unavailable MANZON, DEE D Referring Unavailable POTTER, KATIE Primary Care Unavailable MANZON, DEE D Referring Unavailable POTTER, KATIE Primary Care Unavailable RICO, SEBASILEY Referring Unavailable POTTER, KATIE Primary Care Unavailable RICO, VERN Referring Unavailable POTTER, KATIE Primary Care Unavailable ERICA RENEE Attending Unavailable POTTER, KATIE Primary Care Unavailable MANZON, DEE D Referring Unavailable POTTER, KATIE Primary Care Unavailable CLAYTON, JERRY Edwards Primary Care Unavailable MANZON, DEE D Referring Unavailable RICO, SEBASILEY Referring Unavailable ELDERBROCK, JERRY Edwards Primary Care Unavailable GEOFFREY DANIEL Attending Unavailable SABINA JEFFERSON Referring Unavailable ELDERBROCK, JERRY D Primary Care Unavailable SURACESABINA Referring Unavailable WILLY PRIED Attending Unavailable ELDERBROCK, JERRY D Primary Care Unavailable GEOFFREY DANIEL Attending Unavailable SURACE, SABINA Referring Unavailable ELDERBROCK, JERRY D Primary Care Unavailable MANZON, DEE D Referring Unavailable POTTER, KATIE Primary Care Unavailable ELDERBROCK, JERRY D Primary Care Unavailable SURACESABINA Attending Unavailable MANZON, DEE D Referring Unavailable ELDERBROCK, JERRY D Primary Care Unavailable RICO, SHAILEY Referring Unavailable ELDERBROCK, JERRY D Primary Care Unavailable SURACE, SABINA Referring Unavailable ELDERBROCK, JERRY D Primary Care Unavailable MANZON, DEE D Referring Unavailable ELDERBROCK, JERRY D Primary Care Unavailable MANZON, DEE D Referring Unavailable ELDERBROCK, JERRY D Primary Care Unavailable RICO, SHAILEY Referring Unavailable ELDERBROCK, JERRY D Primary Care Unavailable MANZON, DEE D Referring Unavailable ELDERBROCK, JERRY D Primary Care Unavailable MANZON, DEE D Referring Unavailable ELDERBROCK, JERRY D Primary Care Unavailable MANZON, DEE D Referring Unavailable ELDERBROCK, JERRY D Primary Care Unavailable RICO, SEBASILEY Attending Unavailable ELDERBROCK, JERRY D Primary Care Unavailable SURACE, SABINA Attending Unavailable ELDERBROCK, JERRY D Primary Care Unavailable PO DELGADILLO Referring Unavailable ELDERBROCK, JERRY D Primary Care Unavailable MANZON, DEE D Referring Unavailable ELDERBROCK, JERRY D Primary Care Unavailable RICO, SHAILEY Referring Unavailable ELDERBROCK, JERRY D Primary Care Unavailable POTTER, KATIE Attending Unavailable POTTER, KATIE Primary Care Unavailable POTTER, KATIE Primary Care Unavailable MANDO GIRON Attending Unavailable RICO, SHAILEY Referring Unavailable POTTER, KATIE Primary Care Unavailable VÍCTOR, ERICA M Referring Unavailable POTTER, KATIE Primary Care Unavailable POTTER, KATIE Primary Care Unavailable ELDERBROCK, JERRY D Primary Care Unavailable ELDERBROCK, JERRY D Primary Care Unavailable SURACE, PETER Referring Unavailable ELDERBROCK, JERRY D Primary Care Unavailable SABINA JEFFERSON Attending Unavailable SABINA JEFFERSON Admitting Unavailable KIRT REEVES Consulting Unavailable Allergies Allergy Classification Reported Allergen(s) Allergy Type Date of Onset Reaction(s) Facility HMG-CoA Reductase Inhibitors (statins) (3 sources) atorvastatin Drug Allergy 02-27-20 19 Myalgia [facility] Nitroimidazoles (antibiotic) (3 sources) metroNIDAZOLE Drug Allergy 12-10-19 08 Diarrhea [facility] Opioid Agonists (1 source) traMADol Drug Allergy 03-07-20 Other: See Comments [facility] Work Phone: Quinolones (antibiotic) (3 sources) Ciprofloxacin Drug Allergy 12-10-19 08 Diarrhea [facility] (20 sources) Adhesive agent; Translations: [ADHESIVE] Drug Intolerance 03-12-20 11 Rash [facility] (20 sources) atorvastatin; Translations: [ATORVASTATIN] Drug Allergy 02-27-20 19 Myalgia [facility] (20 sources) Ciprofloxacin; Translations: [CIPROFLOXACIN] Drug Allergy 12-10-19 08 Diarrhea [facility] (20 sources) metroNIDAZOLE; Translations: [METRONIDAZOLE HCL] Drug Allergy 12-10-19 08 Diarrhea [facility] (20 sources) traMADol; Translations: [TRAMADOL HCL] Drug Allergy 03-07-20 15 Other: See Comments [facility] Work Phone: (20 sources) Antiviral Drugs; Translations: [ANTIVIRAL DRUGS] Propensity to adverse reactions 05-22-19 06 Diarrhea [facility] Work Phone: Medications Current Medications Medication Drug Class(es) Dates Sig (Normalized) Sig (Original) abatacept 250 mg injection (20 sources) Selective T Cell Costimulation Modulator Start: 08-27-19 18 inject 250 mg intravenously every month abatacept (ORENCIA) 250 mg injection Inject 250 mg intravenously once every month. 08/26/2017 Active Comment on above: Inject intravenously once every month. Inject 250 mg intrav enously once every month. cephalexin 500 mg oral capsule (1 source) Cephalosporin Antibacterial Start: 03-07-20 24 End: 03-14-20 24 take 1 capsule by mouth three times daily cephALEXin (KEFLEX) 500 mg capsule Take 1 capsule by mouth three times a day for 7 days. 21 capsule 03/07/2024 03/14/2024 Active cholecalciferol 0.025 mg oral tablet (20 sources) Vitamin D take 1 tablet by mouth once daily cholecalciferol (VITAMIN D3) 1,000 unit tab Take 1,000 Units by mouth once daily. Active Comment on above: Take 1,000 Units by mouth once daily. docusate sodium 100 mg oral capsule (20 sources) Start: 07-23-19 End: 08-23-19 take 1 capsule by mouth every twelve hours as needed docusate sodium (COLACE) 100 mg capsule Take 1 capsule by mouth two times a day as needed for constipation. 60 capsule 0 07/24/2023 08/23/2023 Active Comment on above: Take 1 capsule by mo uth two times a day as needed for constipation. hydroCHLOROthiazide 12.5 mg oral capsule (20 sources) Thiazide Diuretic Start: 11-18-19 End: 02-14-20 take 1 capsule by mouth once daily hydroCHLOROthiazide 12.5 mg capsule Indications: Primary hypertension Take 1 capsule by mouth once daily. 02/14/2024 Active Start: 11-15-2020 End: 11-15-2021 take 1 capsule by mouth once daily as needed hydroCHLOROthiazide (HYDRODIURIL, ESIDRIX) 12.5 mg capsule Indications: Vertigo Take 1 capsule by mouth once daily. As needed for vertigo 90 capsule 3 11/15/2021 Active Comment on above: Take 1 capsule by mo uth once daily. As needed for vertigo Take 1 capsule by mo uth once daily as needed (vertigo). As needed for vertigo leucovorin 5 mg oral tablet (20 sources) Folate Analog Start: 05-07-2022 End: 08-11-2023 leucovorin (LEUCOVORIN) 5 mg tablet [The details of the medication are not available because there are pending changes by a home health clinician.] 12 tablet 3 08/11/2023 Active Start: 05-07-2022 take 1 tablet by mouth once le ucovorin (LEUCOVORIN) 5 mg tablet Take 1 tablet by mouth every Saturday. 12 tablet 3 05/07/2022 Active Start: 08-07-2021 End: 05-02-2022 take 1 tablet by mouth once leucovorin (LEUCOVORIN) 5 mg tablet Take 1 tablet by mouth every Saturday. 12 tablet 3 08/07/2021 05/02/2022 Discontinued Comment on above: Take 1 tablet by cammy th every Saturday. TAKE 1 TABLET EVERY SATURDAY [The details of the medication are not available because there are pending changes by a home health clinician.] Take once weekly, 10 to 12 hours after methotrexate administration levothyroxine sodium 0.1 mg oral tablet (20 sources) l-Thyroxine Start: 01-20-2024 levothyroxine (SYNTHROID) 100 mcg tablet TAKE 1 AND 1/2 TABLETS ON SATURDAY ONLY, TAKE 1 TABLET REST OF DAYS 100 tablet 3 01/20/2024 Active Start: 08-09-2023 End: 01-20-2024 levothyroxine (SYNTHROID) 10 0 mcg tablet Indications: Acquired hypothyroidism [The details of the medication are not available because there are pending changes by a home health clinician.] 100 tablet 3 08/09/2023 01/20/2024 Discontinued Start: 08-05-2023 End: 08-09-2023 levothyroxine (SYNTHROID) 10 0 mcg tablet Indications: Acquired hypothyroidism TAKE 1 AND 1/2 TABLETS ON SATURDAY AND SATURDAY ONLY, TAKE 1 TABLET REST OF DAYS 100 tablet 3 08/05/2023 08/09/2023 Discontinued Start: 04-12-2023 End: 08-05-2023 levothyroxine (SYNTHROID) 10 0 mcg tablet Indications: Acquired hypothyroidism [The details of the medication are not available because there are pending changes by a home health clinician.] 100 tablet 3 04/12/2023 08/05/2023 Discontinued Start: 05-08-2022 End: 04-12-2023 levothyroxine (SYNTHROID) 10 0 mcg tablet Indications: Acquired hypothyroidism TAKE 1 AND 1/2 TABLETS ON SATURDAY AND SATURDAY ONLY, TAKE 1 TABLET REST OF DAYS 100 tablet 3 05/08/2022 04/12/2023 Discontinued Start: 06-05-2021 levothyroxine (SYNTHROID) 100 mcg tablet Indications: Acquired hypothyroidism Take 1.5 tablets by mouth ON SATURDAY AND SATURDAY ONLY. 1 TABLET REST OF DAYS. 100 tablet 3 06/05/2021 Active Comment on above: Take 1.5 tablets by mouth ON SATURDAY AND SATURDAY ONLY. 1 TABLET REST OF DAYS. TAKE 1 AND 1/2 TABLE TS ON SATURDAY AND SATURDAY ONLY, TAKE 1 TABLET REST OF DAYS [The details of the medication are not available because there are pending changes by a home health clinician.] LORazepam 0.5 mg oral tablet (20 sources) Benzodiazepine Start: End: take 1 tablet by mouth at bedtime as needed for anxiety LORazepam (ATIVAN) 0.5 mg Indications: Anxiety neurosis Take 1 tablet by mouth at bedtime as needed (anxiety) for up to 180 days. 90 tablet 1 10/17/2023 04/14/2024 Active Start: 08-14-2023 End: 11-12-2023 take 0.5 mg by mouth every twelve hours as needed for anxiety and anxiety LORazepam (ATIVAN) 0.5 mg Indications: Anxiousness Take 1 tablet by mouth two times a day as needed (anxiety) for up to 90 days. 60 tablet 2 08/14/2023 10/17/2023 Discontinued Start: 07-12-2022 End: 10-10-2022 take 0.5 mg by mouth every twelve hours as needed for anxiety and anxiety LORazepam (ATIVAN) 0.5 mg Indications: Anxiousness Take 1 tablet by mouth twice daily as needed for up to 90 days. 45 tablet 2 07/12/2022 09/05/2022 Discontinued Start: 01-11-2022 End: 04-11-2022 take 0.5 mg by mouth every twelve hours as needed for anxiety and anxiety LORazepam (ATIVAN) 0.5 mg Indications: Anxiousness Take 1 tablet by mouth twice daily as needed for up to 90 days. 45 tablet 2 01/11/2022 04/11/2022 Active Start: 11-14-2014 End: 08-14-2023 take 1 tablet by mouth once daily at bedtime LORazepam (ATIVAN) 0.5 mg Indications: Anxiousness Take 1 tablet by mouth daily at bedtime for 30 days. 30 tablet 2 09/05/2022 02/08/2023 Discontinued Comment on above: Take 1 tablet by cammy th daily at bedtime for 90 days. Take 1 tablet by cammy th daily at bedtime for 7 days. Take 1 tablet by cammy th twice daily as needed for up to 90 days. Take 1 tablet by cammy th daily at bedtime for 30 days. daily at bedtime. Take 1 tablet by cammy th two times a day as needed (anxiety) for up to 90 days. meloxicam 7.5 mg oral tablet (20 sources) Nonsteroidal Anti-inflammatory Drug Start: 08-11-2023 End: 02-03-2024 meloxicam (MOBIC) 7.5 mg tablet Take 1-2 tablets once daily as needed for pain 180 tablet 1 02/03/2024 Active Start: 08-26-2017 End: 08-07-2023 meloxicam (MOBIC) 7.5 mg tab let TAKE 1 TO 2 TABLETS DAILY WITH FOOD IF NEEDED FOR PAIN 180 tablet 08/08/2022 10/17/2022 Discontinued (Course of therapy completed) Comment on above: TAKE 1 TO 2 TABLETS DAILY WITH FOOD IF NEEDED FOR PAIN Take 7.5 mg by mouth once daily. DAILY Take 1 tablet by cammy th once daily for 14 days. Take 1 tablet by cammy th once daily as needed. methotrexate 2.5 mg oral tablet (20 sources) Folate Analog Metabolic Inhibitor Start: 08-05-2023 End: 01-17-2024 methotrexate 2.5 mg tablet Indications: Long-term use of immunosuppressant medication TAKE 3 TABLETS ONCE WEEKLY 36 tablet 01/17/2024 Active Start: 05-27-2023 End: 01-17-2024 methotrexate 2.5 mg tablet Indications: Long-term use of immunosuppressant medication [The details of the medication are not available because there are pending changes by a home health clinician.] 36 tablet 0 08/11/2023 Active Start: 05-27-2023 methotrexate 2 .5 mg tablet Indications: Long-term use of immunosuppressant medication TAKE 3 TABLETS ONCE WEEKLY 36 tablet 0 05/27/2023 Active Start: 03-11-2023 take 3 tablets by mo ut every week methotrexate 2.5 mg tablet Indications: Long-term use of immunosuppressant medication Take 3 tablets by mouth one time a week. 36 tablet 0 03/11/2023 Active Start: 08-08-2022 End: 03-11-2023 take 4 tablets by mouth every week methotrexate 2.5 mg tablet Indications: Long-term use of immunosuppressant medication Take 4 tablets by mouth one time a week. 48 tablet 08/08/2022 03/11/2023 Discontinued Start: 07-05-2021 End: 05-02-2022 take 4 tablets by mouth every week methotrexate 2.5 mg tablet Indications: Long-term use of immunosuppressant medication Take 4 tablets by mouth one time a week. 48 tablet 0 05/02/2022 Active Comment on above: Take 4 tablets by mo uth one time a week. TAKE 4 TABLETS ONCE WEEKLY Take 3 tablets by [facility] one time a week. TAKE 3 TABLETS ONCE WEEKLY [The details of the medication are not available because there are pending changes by a home health clinician.] mupirocin 0.02 mg/mg topical ointment (4 sources) RNA Synthetase Inhibitor Antibacterial Start: 4 End: 4 mupirocin (BACTROBAN) 2 % ointment Apply 0.5 inch with cotton swab (Q-tip) to each nostril in the morning and evening for 5 days prior to and including day of surgery. 22 g 0 07/03/2023 07/22/2023 Active Comment on above: Apply 0.5 inch with cotton swab (Q-tip) to each nostril in the morning and evening for 5 days prior to and including day of surgery. oxybutynin chloride 5 mg oral tablet (20 sources) Cholinergic Muscarinic Antagonist Start: 3 End: 4 take 1 tablet by mouth twice daily oxybutynin (DITROPAN) 5 mg tablet Indications: Urgency of urination Take 1 tablet by mouth two times a day. 180 tablet 3 08/09/2023 Active Start: 06-20-2021 End: 04-22-2023 take 1 tablet by mouth once daily oxybutynin (DITROPAN) 5 mg tablet Indications: Urgency of urination Take 1 tablet by mouth once daily. 90 tablet 3 08/02/2022 04/22/2023 Discontinued Comment on above: Take 1 tablet by [facility] once daily. Take 1 tablet by [facility] two times a day. oxyCODONE hydrochloride 5 mg oral tablet (1 source) Opioid Agonist Start: 07-23-19 End: 07-30-19 24 take 1 tablet by mouth every six hours as needed oxyCODONE IR (ROXICODONE) 5 mg immediate release tablet Indications: S/P total knee arthroplasty, right Take 1-2 tablets by mouth every 6 hours as needed for pain for up to 7 days. 50 tablet 0 07/23/2023 07/30/2023 Active Comment on above: Take 1-2 tablets by mouth every 6 hours as needed for pain for up to 7 days. polyethylene glycol 3350 26447 mg powder for oral solution (12 sources) Osmotic Laxative Start: 07-23-19 End: 08-06-19 polyethylene glycol 3350 17 gram/dose powder Take 17 g by mouth once daily as needed for constipation for up to 10 days. Dissolve dose in 4 - 8 ounces of liquid and take as directed. 238 g 0 07/24/2023 08/03/2023 Active Comment on above: Take 17 g by mouth o nce daily as needed for constipation for up to 10 days. Dissolve dose in 4 - 8 ounces of liquid and take as directed. predniSONE 10 mg oral tablet (20 sources) Start: 01-20-20 predniSONE (DELTASONE) 10 mg tablet Take by mouth with food. Take 4 tabs daily x 5 days, then 2 tabs daily x 5 days, then 1 tab daily x 5 days, then stop. 35 tablet 01/20/2024 Active Start: 03-28-2021 End: 01-09-2022 predniSONE (DELTASONE) 10 mg tablet Take by mouth with food. Take 3 tabs daily x 5 days, then 2 tabs daily x 5 days, then 1 tab daily x 5 days, then stop. 30 tablet 0 03/28/2021 01/09/2022 Discontinued Comment on above: Take by mouth with f ood. Take 3 tabs daily x 5 days, then 2 tabs daily x 5 days, then 1 tab daily x 5 days, then stop. rosuvastatin calcium 10 mg oral tablet (20 sources) HMG-CoA Reductase Inhibitor Start: take 1 tablet by mouth once daily at bedtime rosuvastatin (CRESTOR) 10 mg tablet Indications: Mixed hyperlipidemia Take 1 tablet by mouth daily at bedtime. 90 tablet 3 09/23/2023 Active Start: 07-31-2022 End: 09-23-2023 rosuvastatin (CRESTOR) 10 mg tablet Indications: Mixed hyperlipidemia [The details of the medication are not available because there are pending changes by a home health clinician.] 90 tablet 3 07/31/2022 09/23/2023 Discontinued Start: 09-08-2020 End: 08-07-2022 rosuvastatin (CRESTOR) 10 mg tablet Indications: Mixed hyperlipidemia TAKE 1 TABLET AT BEDTIME 90 tablet 3 07/31/2022 Active Comment on above: Take 1 tablet by cammy th daily at bedtime. TAKE 1 TABLET AT BED TIME [The details of the medication are not available because there are pending changes by a home health clinician.] valACYclovir 1000 mg oral tablet (2 sources) Herpesvirus Nucleoside Analog DNA Polymerase Inhibitor, Herpes Simplex Virus Nucleoside Analog DNA Polymerase Inhibitor, Herpes Zoster Virus Nucleoside Analog DNA Polymerase Inhibitor Start: 3 End: 3 take 1 tablet by mouth twice daily valACYclovir (VALTREX) 1 gram Indications: Herpes zoster without complication Take 1 tablet by mouth twice daily for 7 days. 14 tablet 0 11/29/2022 12/06/2022 Active Comment on above: Take 1 tablet by cammy th twice daily for 7 days. Completed/Discontinued Medications Medication Drug Class(es) Dates Sig (Normalized) Sig (Original) abatacept 500 mg in NaCl 0.9% 100 mL (ORENCIA) (7 sources) Start: 02-20-2024 End: 02-20-2024 500 mg, INTRAVENOUS, at 200 mL/hr, Administer over 30 Minutes, ONCE, 1 dose, On [place] 02/20/24 at 1430, Dose for patients weighing less than 60 kg is equal to 500 mg. Total Volume: 100 mL Administer with 0.2 micron filter. Start: 01-23-2024 End: 01-23-2024 500 mg, INTRAVENOUS, at 200 mL/hr, Administer over 30 Minutes, ONCE, 1 dose, On [place] 01/23/24 at 1430, TOTAL VOLUME - Expires: 01/24/24 @ (room temp) Administer with 0.2 micron filter. Start: 12-26-2023 End: 12-26-2023 abatacept 500 mg in NaCl 0.9 % 100 mL (ORENCIA) Start: 11-28-2023 End: 11-28-2023 abatacept 500 mg in NaCl 0.9 % 100 mL (ORENCIA) Start: 10-31-2023 End: 10-31-2023 abatacept 500 mg in NaCl 0.9 % 100 mL (ORENCIA) Start: 10-03-2023 End: 10-03-2023 abatacept 500 mg in NaCl 0.9 % 100 mL (ORENCIA) Start: 09-05-2023 End: 04-25-2024 abatacept 500 mg in NaCl 0.9 % 100 mL (ORENCIA) acetaminophen 500 mg oral ta blet (20 sources) Start: 12-26-2023 End: 12-26-2023 acetaminophen 1,000 mg tab(s ) (TYLENOL) Start: 07-26-2023 End: 10-15-2023 take 2 tablets by mouth every eight hours as needed acetaminophen (TYLENOL) 500 mg tablet Take 1,000 mg by mouth every 8 hours as needed for pain. 07/26/2023 10/15/2023 Discontinued Start: 07-23-2023 take 2 tablets by mo uth every eight hours as needed acetaminophen (TYLENOL) 500 mg tablet Take 2 tablets by mouth every 8 hours as needed for pain. 90 tablet 0 07/23/2023 Active Comment on above: Take 2 tablets by mo uth every 8 hours as needed for pain. Take 1,000 mg by cammy every 8 hours as needed for pain. acetaminophen 325 mg / HYDROcodone bitartrate 5 mg oral tablet (19 sources) Opioid Agonist Start: 07-25-2023 End: 08-01-2023 HYDROcodone-acetaminophe n (NORCO) 5-325 mg per tablet Indications: Status post right knee replacement [The details of the medication are not available because there are pending changes by a home health clinician.] 50 tablet 0 07/25/2023 07/31/2023 Discontinued Start: 07-24-2023 End: 08-08-2023 take 1-2 tablets by mouth every six hours as needed for pain HYDROcodone-acetaminophen (NORCO) 5-325 mg per tablet Indications: Status post right knee replacement Take 1-2 tablets by mouth every 6 hours as needed for pain for up to 7 days. 56 tablet 08/01/2023 08/06/2023 Discontinued Comment on above: Take 1-2 tablets by mouth every 6 hours as needed for up to 7 days. Take 1-2 tablets by mouth every 6 hours as needed for up to 3 days. [The details of the medication are not available because there are pending changes by a home health clinician.] Take 1-2 tablets by mouth every 6 hours as needed for pain for up to 7 days. ascorbic acid 500 mg oral tablet (20 sources) Vitamin C Start: End: 06-04-202 4 take 1 tablet by mouth twice daily at mealtime ascorbic acid, vitamin C, (VITAMIN C) 500 mg tablet Take 1 tablet by mouth two times a day with meals for 27 doses. 27 tablet 0 07/24/2023 Active Comment on above: Take 1 tablet by [facility] two times a day with meals for 27 doses. aspirin 81 mg delayed release oral tablet (20 sources) Platelet Aggregation Inhibitor, Nonsteroidal Anti-inflammatory Drug Start: 1 End: 4 take 1 tablet by mouth twice daily aspirin, enteric coated (ASPIRIN, ENTERIC COATED) 81 mg EC tablet Take 1 tablet by mouth two times a day for 28 days. 56 tablet 07/24/2023 02/14/2024 Discontinued End: 07-03-2023 take 1 tablet by mouth once daily aspirin, enteric coated (ASPIRIN, ENTERIC COATED) 81 mg EC tablet Take 81 mg by mouth once daily. 07/03/2023 Discontinued Comment on above: Take 1 tablet by [facility] twice daily for 27 days. Take 81 mg by mouth once daily. Take 1 tablet by [facility] two times a day for 28 days. celecoxib 200 mg oral capsule (20 sources) Nonsteroidal Anti-inflammatory Drug Start: 3 End: 4 take 1 capsule by mouth twice daily celecoxib (CELEBREX) 200 mg capsule Indications: Degeneration of lumbar or lumbosacral intervertebral disc , Lumbar facet arthropathy , Trochanteric bursitis of both hips Take 1 capsule by mouth twice daily. Take this directly following a meal 60 capsule 0 10/31/2022 07/03/2023 Discontinued Start: 10-17-2022 End: 10-31-2022 take 1 capsule by mouth once daily celecoxib (CELEBREX) 200 mg capsule Indications: Degeneration of lumbar or lumbosacral intervertebral disc , Lumbar facet arthropathy Take 1 capsule by mouth once daily. Take this directly following a meal 30 capsule 1 10/17/2022 10/31/2022 Discontinued (Changing Therapy/Dosage Form) Comment on above: Take 1 capsule by [facility] once daily. Take this directly following a meal Take 1 capsule by [facility] twice daily. Take this directly following a meal 10 ml lidocaine hydrochloride 10 mg/ml injection (1 source) Antiarrhythmic, Amide Local Anesthetic Start: 08-16-2022 End: 04-06-2023 lidocaine (PF) 10 mg/mL (1 %) 3 mL injection (XYLOCAINE) Start: 08-16-2022 End: 08-16-2022 lidocaine (PF) 10 mg/mL (1 % ) 3 mL injection (XYLOCAINE) lidocaine 400 mg, sodium bicarbonate 20 mEq in NaCl 0.9% 1,000 mL solution (TUMESCENT WITHOUT EPINEPHrine) (1 source) Start: 09-22-2021 End: 09-22-2021 lidocaine 400 mg, sodium bicarbonate 20 mEq in NaCl 0.9% 1,000 mL solution (TUMESCENT WITHOUT EPINEPHrine) methylPREDNISolone (13 sources) Corticosteroid Start: 08-23-2022 End: 11-29-2022 methylPREDNISolone (MEDROL, MADIHA,) 4 mg Dose-Pack As Instructed per package 21 tablet 08/23/2022 11/29/2022 Discontinued Start: 08-23-2022 End: 11-29-2022 methylPREDNISolone (MEDROL, MADIHA,) 4 mg Dose-Pack As Instructed per package 21 tablet 0 08/23/2022 11/29/2022 Discontinued Start: 08-23-2022 methylPREDNISo lone (MEDROL, MADIHA,) 4 mg Dose-Pack As Instructed per package 21 tablet 0 08/23/2022 Active Comment on above: As Instructed per shantal jim multivitamin tablet (20 sources) Start: End: take 1 tablet by mouth once daily multivitamin tablet Take 1 tablet by mouth once daily. 100 tablet 3 09/29/2020 10/15/2023 Discontinued Start: 09-29-2020 take 1 tablet by cammy th once daily multivitamin tablet Take 1 tablet by mouth once daily. 100 tablet 3 09/29/2020 Suspended Start: 09-29-2020 take 1 tablet by cammy th once daily multivitamin tablet Take 1 tablet by mouth once daily. 100 tablet 3 09/29/2020 Active Comment on above: Take 1 tablet by cammy th once daily. pantoprazole 20 mg delayed release oral tablet (20 sources) Proton Pump Inhibitor Start: 07-23-19 End: 10-15-19 24 take 1 tablet by mouth once daily in the morning pantoprazole DR (PROTONIX) 20 mg tablet Take 1 tablet by mouth every morning for 14 days. 14 tablet 0 07/24/2023 Active Comment on above: Take 1 tablet by cammy th every morning for 14 days. phenazopyridine hydrochloride 200 mg oral tablet (20 sources) Start: 10-28-19 take 1 tablet by mouth every eight hours as needed phenazopyridine (PYRIDIUM) 200 mg tablet Take 1 tablet by mouth three times daily as needed. 6 tablet 0 10/27/2020 Active Start: 10-27-2020 take 1 tablet by cammy th every eight hours as needed phenazopyridine (PYRIDIUM) 200 mg tablet [The details of the medication are not available because there are pending changes by a home health clinician.] 6 tablet 0 10/27/2020 Active Comment on above: [The details of the medication are not available because there are pending changes by a home health clinician.] Take 1 tablet by cammy th three times daily as needed. traMADol hydrochloride 50 mg oral tablet (4 sources) Opioid Agonist Start: 08-06-19 End: 08-13-19 take 1 tablet by mouth every eight hours as needed for pain traMADol (ULTRAM) 50 mg tablet Indications: Status post right knee replacement Take 1 tablet by mouth every 8 hours as needed for pain for up to 7 days. for pain. 21 tablet 0 08/06/2023 08/13/2023 Comment on above: Take 1 tablet by cammy th every 8 hours as needed for pain for up to 7 days. for pain. 1 ml triamcinolone acetonide 40 mg/ml injection (1 source) Corticosteroid Start: 08-17-19 End: 08-17-19 triamcinolone acetonide 80 mg injection (KeNALog 40) Start: 08-16-2022 End: 08-16-2022 triamcinolone acetonide 80 m g injection (KeNALog 40) 100 ml zoledronic acid 0.05 mg/ml injection (1 source) Bisphosphonate Start: 12-26-2023 End: 12-26-2023 zoledronic acid 5 mg PREMIX piggyback (RECLAST) Problems Active Problems Problem Classification Problem Date Documented Date Episodic/Chronic Anxiety disorders (20 sources) Anxiety; Translations: [Anxiety disorder, unspecified] Onset: 12-22-2015 Chronic Conditions associated with dizziness or vertigo (2 sources) Vertigo; Translations: [Dizziness and giddiness] Episodic Developmental disorders (1 source) Disorder of language; 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, unspecified] Chronic Diseases of mouth; excluding dental (1 source) Parotitis; Translations: [Sialoadenitis, unspecified] 03-07-2024 Episodic Disorders of lipid metabolism (20 sources) Mixed hyperlipidemia; Translations: [Mixed hyperlipidemia] Onset: 01-27-2021 Chronic Diverticulosis and diverticulitis (20 sources) Diverticulitis of large intestine without perforation or abscess without bleeding; Translations: [Diverticulitis of colon (without mention of hemorrhage)] Onset: 11-13-2007 11-13-2007 Chronic Essential hypertension (20 sources) Essential hypertension; Translations: [Essential (primary) hypertension] Onset: 08-31-2013 10-17-2023 Chronic Genitourinary symptoms and ill-defined conditions (20 sources) Urge incontinence of urine; Translations: [Urge incontinence] Onset: 06-06-2010 06-06-2010 Chronic Headache; including migraine (1 source) Migraine; Translations: [Migraine without aura, not intractable, without status migrainosus] Chronic Immunizations and screening for infectious disease (4 sources) Needs influenza immunization; Translations: [Encounter for immunization] 04-10-2023 Episodic Miscellaneous mental health disorders (2 sources) Primary insomnia; Translations: [Primary insomnia] Chronic Osteoarthritis (20 sources) Osteoarthritis of left hip joint; Translations: [Unilateral primary osteoarthritis, left hip] Onset: 01-02-2016 Resolved: 10-17-2023 01-02-2016 Chronic Other acquired deformities (1 source) Leg length inequality; Translations: [Unequal limb length (acquired), unspecified site] 02-20-2024 Episodic Other aftercare (11 sources) Long-term current use of immunosuppressive drug; Translations: [Other fpc (current) drug therapy] Episodic Other aftercare (1 source) Post-discharge follow-up; Translations: [Encounter for follow-up examination after completed treatment for conditions other than malignant neoplasm] Episodic Other circulatory disease (1 source) Elevated blood pressure; Translations: [Elevated blood-pressure reading, without diagnosis of hypertension] 10-17-2023 Episodic Other connective tissue disease (20 sources) History of total knee arthroplasty; Translations: [Presence of left artificial knee joint] Onset: 06-20-2015 06-20-2015 Chronic Other connective tissue disease (20 sources) History of total hip arthroplasty; Translations: [Presence of unspecified artificial hip joint] Onset: 04-18-2017 Resolved: 08-30-2017 02-15-2021 Chronic Other connective tissue disease (20 sources) Artificial knee joint present; Translations: [Presence of right artificial knee joint] Onset: 07-23-2023 08-16-2023 Chronic Other connective tissue disease (1 source) Presence of left artificial knee joint; Translations: [S/P total knee replacement using cement, left] Onset: 04-18-2017 Chronic Other connective tissue disease (1 source) Presence of artificial hip joint, bilateral; Translations: [Status post total replacement of both hips] Onset: 02-15-2021 Chronic Other connective tissue disease (1 source) Presence of right artificial knee joint; Translations: [S/P total knee arthroplasty, right] Onset: 07-23-2023 Chronic Other connective tissue disease (1 source) Presence of unspecified artificial hip joint; Translations: [Status post total replacement of hip, unspecified laterality] Onset: 02-15-2021 Chronic Other connective tissue disease (2 sources) H/O: rheumatoid arthritis; Translations: [Personal history of other diseases of the musculoskeletal system and connective tissue] Episodic Other connective tissue disease (3 sources) Trochanteric bursitis of right hip; Translations: [Trochanteric bursitis, right hip] Onset: 10-02-2022 10-02-2022 Episodic Other nervous system disorders (3 sources) Other chronic pain; Translations: [Chronic right shoulder pain] Onset: 05-27-2023 Chronic Other non-epithelial cancer of skin (20 sources) Malignant neoplasm of skin; Translations: [Unspecified malignant neoplasm of skin, unspecified] Onset: 07-19-2017 07-19-2017 Episodic Other non-traumatic joint disorders (8 sources) Chronic pain of right upper limb; Translations: [Pain in right shoulder] Onset: 02-14-2024 01-20-2024 Episodic Other non-traumatic joint disorders (1 source) Pain in right shoulder; Translations: [Chronic right shoulder pain] Onset: 01-20-2024 Episodic Other nutritional; endocrine; and metabolic disorders (1 source) Hypocalcemia; Translations: [Hypocalcemia] Onset: 03-20-2021 Chronic Residual codes; unclassified (1 source) Edema of lower leg ; Translations: [Localized edema] Episodic Rheumatoid arthritis and related disease (20 sources) Seropositive rheumatoid arthritis; Translations: [Rheumatoid arthritis with rheumatoid factor, unspecified] Onset: 05-31-2011 Resolved: 02-14-2024 04-25-2015 Chronic Spondylosis; intervertebral disc disorders; other back problems (20 sources) Arthropathy of lumbar facet joint; Translations: [Spondylosis without myelopathy or radiculopathy, lumbar region] Onset: 11-03-2013 Resolved: 10-17-2023 11-03-2013 Chronic Thyroid disorders (20 sources) Acquired hypothyroidism; Translations: [Hypothyroidism, unspecified] Onset: 05-02-2015 05-02-2015 Chronic Transient cerebral ischemia (1 source) Transient cerebral ischemia; Translations: [Transient cerebral ischemic attack, unspecified] Chronic Unclassified (2 sources) 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 Onset: 05-16-2023 05-16-2023 Unclassified (1 source) Long-term use of immunosuppressant medication; Translations: [Long-term use of immunosuppressant medication] Onset: 01-15-2024 Unclassified (1 source) orencia Onset: 10-31-2023 Viral infection (1 source) Herpes zoster without complication; Translations: [Zoster without complications] 11-29-2022 Episodic Past or Other Problems Problem Classification Problem Date Documented Da te Episodic/Chronic Abdominal hernia (20 sources) Hernia of anterior abdominal wall; Translations: [Ventral hernia without obstruction or gangrene] Onset: 03-09-2011 Resolved: 08-30-2017 08-30-2017 Episodic Acute posthemorrhagic anemia (2 sources) Acute posthemorrhagic anemia; Translations: [Acute posthemorrhagic anemia] Onset: 07-08-2015 07-03-2023 Episodic Allergic reactions (20 sources) Latex allergy status; Translations: [Allergy to latex] Onset: 12-10-2007 Resolved: 10-17-2023 12-10-2007 Episodic Complication of device; implant or graft (20 sources) Pain due to knee joint prosthesis; Translations: [Pain due to internal orthopedic prosthetic devices, implants and grafts, initial encounter] Onset: 02-17-2016 Resolved: 08-30-2017 08-30-2017 Episodic Deficiency and other anemia (20 sources) Anemia; Translations: [Anemia, unspecified] Onset: 07-08-2015 Resolved: 02-14-2024 07-08-2015 Episodic Genitourinary symptoms and ill-defined conditions (20 sources) Blood in urine; Translations: [Hematuria] Onset: 04-18-2000 Resolved: 02-14-2024 09-06-2003 Episodic Menopausal disorders (20 sources) Atrophic vaginitis; Translations: [Postmenopausal atrophic vaginitis] Onset: 06-06-2010 Resolved: 10-17-2023 06-06-2010 Chronic Nonmalignant breast conditions (20 sources) Fibrocystic disease of breast; Translations: [Diffuse cystic mastopathy of unspecified breast] Onset: 04-06-2008 Resolved: 10-17-2023 04-06-2008 Chronic Nonmalignant breast conditions (20 sources) Breast lump; Translations: [Unspecified lump in unspecified breast] Onset: 04-18-2000 Resolved: 09-01-2014 09-01-2014 Episodic Other aftercare (20 sources) Patient encounter status; Translations: [Other fpc (current) drug therapy] Onset: 05-31-2011 Resolved: 10-17-2023 03-20-2021 Episodic Other aftercare (20 sources) Long-term current use of drug therapy; Translations: [Other fpc (current) drug therapy] Onset: 05-31-2011 Resolved: 10-17-2023 10-17-2023 Episodic Other aftercare (1 source) Other fpc (current) drug therapy; Translations: [Encounter for long-term (current) use of medications] Onset: 10-17-2023 Episodic Other and unspecified benign neoplasm (20 sources) Benign tumor of breast; Translations: [Benign neoplasm of unspecified breast] Resolved: 08-30-2017 08-30-2017 Episodic Other bone disease and musculoskeletal deformities (20 sources) Osteopenia; Translations: [Other specified disorders of bone density and structure, multiple sites] Onset: 09-26-2016 09-26-2016 Episodic Other bone disease and musculoskeletal deformities (20 sources) Disorder of skeletal system; Translations: [Disorder of bone, unspecified] Resolved: 06-14-2009 06-14-2009 Episodic Other bone disease and musculoskeletal deformities (1 source) Other specified disorders of bone density and structure, multiple sites; Translations: [Osteopenia of multiple sites] Onset: 09-26-2016 Episodic Other circulatory disease (20 sources) History of transient ischemic attack; Translations: [Personal history of transient ischemic attack (TIA), and cerebral infarction without residual deficits] Onset: 01-27-2021 01-27-2021 Episodic Other circulatory disease (1 source) Personal history of transient ischemic attack (TIA), and cerebral infarction without residual deficits; Translations: [History of transient ischemic attack (TIA)] Onset: 01-27-2021 Episodic Other connective tissue disease (20 sources) History of repair of hip joint; Translations: [Presence of left artificial hip joint] Onset: 02-17-2016 Resolved: 08-30-2017 Chronic Other connective tissue disease (20 sources) Polymyalgia rheumatica; Translations: [Polymyalgia rheumatica] Onset: 04-18-2000 Resolved: 06-14-2009 06-14-2009 Chronic Other connective tissue disease (20 sources) Digital mucous cyst; Translations: [Ganglion, unspecified hand] Onset: 11-25-2009 Resolved: 10-17-2023 11-25-2009 Episodic Other connective tissue disease (20 sources) Tendinitis of hip; Translations: [Other specified enthesopathies of left lower limb, excluding foot] Onset: 06-19-2021 Resolved: 10-17-2023 06-19-2021 Episodic Other connective tissue disease (20 sources) Bilateral trochanteric bursitis; Translations: [Trochanteric bursitis, right hip] Onset: 10-02-2022 Resolved: 10-17-2023 Episodic Other connective tissue disease (1 source) Other specified enthesopathies of left lower limb, excluding foot; Translations: [Tendinitis of left hip flexor] Onset: 06-19-2021 Episodic Other diseases of veins and lymphatics (20 sources) Vascular insufficiency; Translations: [Venous insufficiency (chronic) (peripheral)] Onset: 04-18-2007 05-02-2015 Episodic Other diseases of veins and lymphatics (1 source) Venous insufficiency (chronic) (peripheral); Translations: [Venous insufficiency] Onset: 05-02-2015 Episodic Other gastrointestinal disorders (20 sources) History of diverticulitis; Translations: [Personal history of other diseases of the digestive system] Onset: 11-13-2007 Resolved: 02-14-2024 07-03-2023 Episodic Other gastrointestinal disorders (1 source) Personal history of other diseases of the digestive system; Translations: [History of diverticulitis] Onset: 07-03-2023 Episodic Other nervous system disorders (20 sources) Abnormal gait; Translations: [Unspecified abnormalities of gait and mobility] Onset: 06-20-2015 Resolved: 08-30-2017 08-30-2017 Episodic Other non-traumatic joint disorders (20 sources) Pain in right knee; Translations: [Pain in joint, lower leg] Onset: 06-20-2015 Resolved: 10-17-2023 Episodic Other non-traumatic joint disorders (20 sources) Hip pain; Translations: [Pain in left hip] Onset: 02-17-2016 Resolved: 08-30-2017 08-30-2017 Episodic Other nutritional; endocrine; and metabolic disorders (20 sources) Hypocalcemia; Translations: [Hypocalcemia] Onset: 03-20-2021 Resolved: 02-14-2024 03-20-2021 Chronic Other screening for suspected conditions (not mental disorders or infectious disease) (20 sources) Cancer cervix screening status; Translations: [Encounter for screening for malignant neoplasm of cervix] Onset: 06-06-2010 Resolved: 10-17-2023 06-06-2010 Episodic Other skin disorders (20 sources) Median nail dystrophy of Heller; Translations: [Nail disorder, unspecified] Onset: 11-25-2009 Resolved: 10-17-2023 11-25-2009 Episodic Other skin disorders (20 sources) Median canaliform nail dystrophy; Translations: [Nail dystrophy] Onset: 11-25-2009 Resolved: 08-30-2017 08-30-2017 Episodic Other skin disorders (20 sources) Solar lentigo; Translations: [Other melanin hyperpigmentation] Onset: 11-25-2009 Resolved: 09-01-2014 09-01-2014 Episodic Other skin disorders (20 sources) Seborrheic keratosis; Translations: [Other seborrheic keratosis] Onset: 11-25-2009 Resolved: 09-01-2014 09-01-2014 Episodic Phlebitis; thrombophlebitis and thromboembolism (20 sources) H/O: Deep vein thrombosis; Translations: [Personal history of other venous thrombosis and embolism] Onset: 01-09-2016 Resolved: 08-30-2017 01-27-2021 Episodic Residual codes; unclassified (20 sources) Family history of breast cancer; Translations: [Family history of malignant neoplasm of breast] Onset: 06-06-2010 Resolved: 10-17-2023 06-06-2010 Episodic Residual codes; unclassified (20 sources) Insomnia; Translations: [Insomnia, unspecified] Onset: 01-27-2021 01-27-2021 Episodic Residual codes; unclassified (20 sources) Edema; Translations: [Edema, unspecified] Onset: 04-18-2000 Resolved: 08-30-2017 08-30-2017 Episodic Residual codes; unclassified (1 source) Insomnia, unspecified; Translations: [Insomnia, unspecified type] Onset: 01-27-2021 Episodic Spondylosis; intervertebral disc disorders; other back problems (20 sources) Backache; Translations: [Dorsalgia, unspecified] Onset: 12-03-2011 Resolved: 10-17-2023 12-03-2011 Episodic Syncope (20 sources) Syncope; Translations: [Syncope and collapse] Onset: 07-23-2023 Resolved: 10-17-2023 07-23-2023 Episodic Varicose veins of lower extremity (20 sources) Varicose veins of lower extremity; Translations: [Varicose veins of bilateral lower extremities with other complications] Onset: 12-10-2007 Resolved: 09-01-2014 Episodic Results Test Name Value Interpretation Reference Range Facility [facility] 02-20-2024 CNOV Office Visit (KRISTIAN ) IND[place] MOSQUERA ([id number]) 1940 F NFR Date Time Provider Department 02/20/24 10:00 AM MANDO GIRON During your visit today, we recorded the following information about you: Mando Giron APRN.CNP 02/20/2024 12:01 PM Signed Orthopaedic Office Note: February 20, 2024 10:35 AM [place] Mosquera 83 year old History: Indiana is a very pleasant 83 year old female who presents today for gait concerns following her R TKA. She denies any pain whatsoever. She reports sometimes feeling unstable and also reports her family told her she walks with a limp. She is well known to me having had both of her hips replaced and both knees replaced over the last several years. She reports this issue just started coming up over the past 2 months as she has been more active. She is now roughly 6 months s/p R TKA. Subjective: Gait instability Walking with limp No pain Updated ROS: No changes Updated Exam: Right Lower Extremity: KNEE EXAM: Right: Ambulates with limp Knee Alignment: Neutral Incision well healed without erythema or warmth Range of motion is 0 degrees in extension and 120 degrees of flexion. Pain with ROM: No Effusion: None Tender to the palpation of None Pain with patellar compression: No Stability: Anterior/Posterior stable and Varus/Valgus stable Hip Exam: flexion to 100+ degrees, full extension, internal/external rotation adequate and no pain with log roll Neurovascular Status: Sensation Intact and Moves foot and ankle up AND down Leg length discrepancy: right leg is ~1-1.25 inches longer than left leg Updated Imaging: Well positioned total knee replacement (all poly tibia) without evidence for loosening or osteolysis. No fractures Assessment and Plan: Leg length discrepancy Gait instability S/P R TKA [place] and I discussed her current status today. She has no pain whatsoever. X-rays reviewed and showed right total knee arthroplasty without evidence for complication. Her main concern is her gait and walking with a limp. On physical assessment she has roughly 1 to 1.25 inch leg length discrepancy. We also discussed that her right leg may also go longer due to the fact that we straightened out her knee after her knee replacement. I would like for her to go to physical therapy for gait instability and have also provided prescription for shoe lift. We did discuss that these will take some time to ironed out some issues but I do expect her to prove with this. I have no concerns about either of her knees or her hips at this point. She can follow-up with us at 1 year jerry from her right knee replacement. Will like to obtain repeat x-rays of both hips and both knees at that time. Happy to see sooner if needed. All questions answered today. Mando Giron APRN.[facility] Orthopaedic Surgery I spent a total of approximately 25 minutes on the date of the service which included preparing to see the patient, [id number] patient care, completing clinical documentation, obtaining and/or reviewing separately obtained history, performing a medically appropriate examination, counseling and educating the patient/family/caregive r, ordering medications, tests, or procedures, independently interpreting results (not separately reported), communicating results to the patient/family/caregive r, and care coordination (not separately reported). Allergies As of Date: 02/20/2024 Noted Allergy Reaction CIPRO (CIPROFLOXACIN) 12/10/2007 6 - Diarrhea FLAGYL (METRONIDAZOLE HCL) 12/10/2007 6 - Diarrhea LIPITOR (ATORVASTATIN) 2019 17 - Myalgia Comments: Myalgia, lethargic Date Reviewed: 02/20/2024 Reviewed by: Mando Giron APRN.[employer]ISSION SPECIALIST - Fully Assessed Reason for Visit: Established Patient [175] Follow Up [171] Primary Visit Diagnosis:Leg length discrepancy [M21.70] Other Visit Diagnoses:Status post right knee replacement [Z96.651] Gait instability [R26.81] Order(s):CONSULT TO PHYSICAL THERAPY [9032] Order #: [id number]: 1 FUTURE SHOE LIFT [[id number]] Order #: [id number] Prescriptions as of 02/20/2024 - hydroCHLOROthiazide 12.5 mg capsule Take 1 capsule by mouth once daily. - meloxicam (MOBIC) 7.5 mg tablet Take 1-2 tablets once daily as needed for pain - levothyroxine (SYNTHROID) 100 mcg tablet TAKE 1 AND 1/2 TABLETS ON SATURDAY ONLY, TAKE 1 TABLET REST OF DAYS - predniSONE (DELTASONE) 10 mg tablet Take by mouth with food. Take 4 tabs daily x 5 days, then 2 tabs daily x 5 days, then 1 tab daily x 5 days, then stop. - methotrexate 2.5 mg tablet TAKE 3 TABLETS ONCE WEEKLY - LORazepam (ATIVAN) 0.5 mg Take 1 tablet by mouth at bedtime as needed (anxiety) for up to 180 days. - rosuvastatin (CRESTOR) 10 mg tablet Take 1 tablet by mouth daily at bedtime. - leucovorin (LEUCOVORIN) 5 mg tablet Take one tablet once weekly, 10 to 12 hours (more content not included)... Normal [facility]OVSPon 02-20-2024 CNOVSP Visit (SP) Office (HEMAWS) [place] MOSQUERA ([id number]) 1940 F NFR Date Time Provider Department 02/20/24 2:30 PM TREATMENT RM [facility] During your visit today, we recorded the following information about you: Temperature Pulse Respiration Blood pressure 98.2 degrees 56/minute 18/minute 138/73 Referring Provider: DEE MILLER [[id number]] Allergies As of Date: 02/20/2024 Noted Allergy Reaction CIPRO (CIPROFLOXACIN) 12/10/2007 6 - Diarrhea FLAGYL (METRONIDAZOLE HCL) 12/10/2007 6 - Diarrhea LIPITOR (ATORVASTATIN) 2019 17 - Myalgia Comments: Myalgia, lethargic Date Reviewed: 02/20/2024 Reviewed by: Digna Guillen, RN - Fully Assessed Reason for Visit: Chemotherapy Treatment [771] Primary Visit Diagnosis:Seropositive rheumatoid arthritis (HCC) [M05.9] Order(s):TREATMENT PARAMETERS [4194464] Order #: [id number]: 1 [] abatacept 500 mg in NaCl 0.9% 100 mL (ORENCIA)Disp: Rfl: NaCl 0.9% iv infusionDisp: Rfl: diphenhydrAMINE 50 mg injection (BENADRYL)Disp: Rfl: hydrocortisone sodium succinate (PF) 100 mg injection (Solu-CORTEF)Disp: Rfl: EPINEPHrine HCl (PF) 1 mg/mL (1 mL) 0.3 mg injectionDisp: Rfl: BCN NURSING COMMUNICATION [[id number]] Order #: [id number]: 1 STANDING Prescriptions as of 02/20/2024 - hydroCHLOROthiazide 12.5 mg capsule Take 1 capsule by mouth once daily. - meloxicam (MOBIC) 7.5 mg tablet Take 1-2 tablets once daily as needed for pain - levothyroxine (SYNTHROID) 100 mcg tablet TAKE 1 AND 1/2 TABLETS ON SATURDAY ONLY, TAKE 1 TABLET REST OF DAYS - predniSONE (DELTASONE) 10 mg tablet Take by mouth with food. Take 4 tabs daily x 5 days, then 2 tabs daily x 5 days, then 1 tab daily x 5 days, then stop. - methotrexate 2.5 mg tablet TAKE 3 TABLETS ONCE WEEKLY - LORazepam (ATIVAN) 0.5 mg Take 1 tablet by mouth at bedtime as needed (anxiety) for up to 180 days. - rosuvastatin (CRESTOR) 10 mg tablet Take 1 tablet by mouth daily at bedtime. - leucovorin (LEUCOVORIN) 5 mg tablet Take one tablet once weekly, 10 to 12 hours after methotrexate administration - oxybutynin (DITROPAN) 5 mg tablet Take 1 tablet by mouth two times a day. - abatacept (ORENCIA) 250 mg injection Inject 250 mg intravenously once every month. - cholecalciferol (VITAMIN D3) 1,000 unit tab Take 1,000 Units by mouth once daily. Facility-Administered Medications as of 02/20/2024 - NaCl 0.9% iv infusion - diphenhydrAMINE 50 mg injection (BENADRYL) - hydrocortisone sodium succinate (PF) 100 mg injection (Solu-CORTEF) - EPINEPHrine HCl (PF) 1 mg/mL (1 mL) 0.3 mg injection Problem List As Of Date 02/20/2024 Noted Resolved Polymyalgia Rheumatica [M35.3] 04/18/2000 06/14/2009 Hematuria [599.7] 04/18/2000 02/14/2024 Edema [R60.9] 04/18/2000 08/30/2017 Lump or mass in breast [N63.0] 04/18/2000 09/01/2014 Acquired hypothyroidism [E03.9] Venous insufficiency [I87.2] 04/18/2007 History of diverticulitis [Z87.19] 11/13/2007 02/14/2024 Allergy to latex [Z91.040] 12/10/2007 10/17/2023 Benign neoplasm of breast [D24.9] 08/30/2017 Disorder of Bone and Cartilage, Unspecified [M8* 06/14/2009 Malignant neoplasm of skin [C44.90] Asymptomatic varicose veins [I83.90] 12/10/2007 09/01/2014 Diffuse cystic mastopathy [N60.19] 04/06/2008 10/17/2023 Digital mucous cyst [M67.449] 11/25/2009 10/17/2023 Dystrophia unguis mediana canaliformis [L60.9] 11/25/2009 10/17/2023 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] 11/25/2009 08/30/2017 Actinic Damage///Sun-Damaged Skin [L57.8] 11/25/2009 09/01/2014 Solar Lentigines [L81.4] 11/25/2009 09/01/2014 Other seborrheic keratosis [L82.1] 11/25/2009 09/01/2014 Postmenopausal atrophic vaginitis [N95.2] 06/06/2010 10/17/2023 Urgency of urination [R39.15] 06/06/2010 10/17/2023 Urge incontinence [N39.41] 06/06/2010 Screening for malignant neoplasm of the cervix *06/06/2010 10/17/2023 Family history of malignant neoplasm of breast *06/06/2010 10/17/2023 Ventral hernia, unspecified, without mention of*03/09/2011 08/30/2017 Encounter for long-term (current) use of medica*05/31/2011 10/17/2023 RA (rheumatoid arthritis) [M06.9] 05/31/2011 09/01/2014 Backache, unspecified [M54.9] 12/03/2011 10/17/2023 Hematuria [R31.9] 06/09/2012 10/17/2023 Fibrocystic breast [N60.19] 07/09/2013 10/17/2023 Thoracic or lumbosacral neuritis or radiculitis*09/16/2013 10/17/2023 Facet hypertrophy of lumbar region [M47.816] 11/03/2013 Lumbar spondylosis [M47.816] 11/03/2013 10/17/2023 Lumbar radiculopathy [M54.16] 11/03/2013 10/17/2023 Lumbar disc displacement without myelopathy [M5*11/03/2013 10/17/2023 Seropositive rheumatoid arthritis (HCC) [M05.9] 10/22/2014 Encounter for long-term current use of medicati*10/22/2014 08/30/2017 Lumbar stenosis [M48.061] 11/17/2014 10/17/2023 Rheumatoid arthritis involving both hands with *03/07/2015 04/25/2015 Chronic pain of right k (more content not included)... Normal [facility] XR KNEE 3V AP/LAT/MERCHANT R Ton 02-20-2024 XR KNEE 3V AP/LAT/MERCHANT RT * * *Final Report* * * DATE OF EXAM: Feb 20 2024 9:57AM EZEQUIEL 5209 - XR KNEE 3V AP/LAT/MERCHANT RT / PROCEDURE REASON: multiple diagnoses * * * * Physician Interpretation * * * * EXAMINATION: XR KNEE 3V AP/LAT/MERCHANT RT PATIENT/TECHNOLOGIST PROVIDED HISTORY: f/u right knee CLINICAL INFORMATION: 83 years old Female with Chronic pain of right knee TECHNIQUE: XR KNEE 3V AP/LAT/MERCHANT RT Laterality: RIGHT Number of different views (projections): 3 COMPARISON: Radiographs 08/06/2023, 08/16/2022 RESULT: Status post RIGHT total knee arthroplasty with patellar resurfacing unchanged in alignment and position. No periprosthetic lucency or fracture. Unchanged LEFT total knee arthroplasty. IMPRESSION: Unchanged RIGHT total knee arthroplasty. Auto Winder: MURPHY Transcribe Date/Time: Feb 25 2024 5:46P Dictated by : ROCHELLE WARNER DO This examination was interpreted and the report reviewed and electronically signed by: ROCHELLE WARNER DO on Feb 25 2024 5:47PM EST [id number] [facility] CNOVon 02-14-2024 CNOV Office Visit (INTMWS ) [place] MOSQUERA ([id number]) 1940 F NFR Date Time Provider Department 02/14/24 9:20 AM ZANE POTTER INTMWS During your visit today, we recorded the following information about you: Temperature Pulse Respiration Blood pressure 97.4 degrees 78/minute 12/minute 144/73 Weight Height 55.2 kg 1.549 m Zane Potter MD 02/14/2024 10:17 AM Signed This note was created using Audanikater. Subjective Patient presents with: Follow Up: discussion Immunizations: Flu vaccination [place] Mosquera is a 83 year old female. She recently presented for chronic right shoulder pain, and this was better after prednisone. She cancelled physical therapy. Her hypertension was fair. She was taking hydrochlorothiazide daily, and not PRN. She was concerned about her spouses's general decline. It was increasingly difficult for her to care for him, but she wanted them to stay at their home. We discussed palliative care versus hospice. Review of Systems Constitutional: Negative for fever and unexpected weight change. HENT: Negative for congestion. Respiratory: Negative for shortness of breath. Cardiovascular: Negative for chest pain. Neurological: Negative for dizziness and headaches. ACTIVE PROBLEM LIST Acquired Hypothyroidism Venous Insufficiency Malignant Neoplasm of Skin Urge Incontinence Facet Hypertrophy of Lumbar Region Seropositive Rheumatoid Arthritis (Hcc) Status Post Total Left Knee Replacement Anxiety Neurosis Primary Osteoarthritis of Left Hip Osteopenia of Multiple Sites S/P Total Knee Replacement Using Cement, Left Primary Osteoarthritis of Right Hip Mixed Hyperlipidemia History of Transient Ischemic Attack (Tia) History of Dvt of Lower Extremity Insomnia Status Post Thr (Total Hip Replacement) Presence of Right Artificial Knee Joint Hypertension Social History Tobacco Use Smoking status: Never Smokeless tobacco: Never Vaping Use Vaping status: Never Used Substance Use Topics Alcohol use: Yes Alcohol/week: 3.0 standard drinks of alcohol Types: 3 Glasses of Wine (5oz) per week Comment: Socially Drug use: No Current Outpatient Medications Medication Sig meloxicam (MOBIC) 7.5 mg tablet Take 1-2 tablets once daily as needed for pain levothyroxine (SYNTHROID) 100 mcg tablet TAKE 1 AND 1/2 TABLETS ON SATURDAY ONLY, TAKE 1 TABLET REST OF DAYS predniSONE (DELTASONE) 10 mg tablet Take by mouth with food. Take 4 tabs daily x 5 days, then 2 tabs daily x 5 days, then 1 tab daily x 5 days, then stop. methotrexate 2.5 mg tablet TAKE 3 TABLETS ONCE WEEKLY hydroCHLOROthiazide 12.5 mg capsule Take 1 capsule by mouth once daily as needed (vertigo). As needed for vertigo LORazepam (ATIVAN) 0.5 mg Take 1 tablet by mouth at bedtime as needed (anxiety) for up to 180 days. rosuvastatin (CRESTOR) 10 mg tablet Take 1 tablet by mouth daily at bedtime. leucovorin (LEUCOVORIN) 5 mg tablet Take one tablet once weekly, 10 to 12 hours after methotrexate administration (Patient taking differently: Take one tablet by mouth once weekly, 10 to 12 hours after methotrexate administration) oxybutynin (DITROPAN) 5 mg tablet Take 1 tablet by mouth two times a day. aspirin, enteric coated (ASPIRIN, ENTERIC COATED) 81 mg EC tablet Take 1 tablet by mouth two times a day for 28 days. abatacept (ORENCIA) 250 mg injection Inject 250 mg intravenously once every month. cholecalciferol (VITAMIN D3) 1,000 unit tab Take 1,000 Units by mouth once daily. No current facility-administered medications for this visit. Objective BP 144/73 (BP Site: Left Arm, BP Position: Sitting, BP Cuff Size: Regular Adult) Pulse 78 Temp 36.3 ?C (97.4 ?F) Resp 12 Ht 154.9 cm (5' 1 ) Wt 55.2 kg (121 lb 11.1 oz) SpO2 100% BMI 22.99 kg/m? Physical Exam Constitutional: General: She is not in acute distress. Cardiovascular: Heart sounds: Normal heart sounds. Pulmonary: Breath sounds: Normal breath sounds. Musculoskeletal: Right lower le+ Pitting Edema present. Left lower le+ Pitting Edema present. Neurological: Mental Status: She is alert. Xray of the shoulder reviewed showing advanced degenerative joint disease. Assessment and Plan 1. Primary hypertension - ICD9: 401.9, ICD10: I10 (primary diagnosis) - Improving control - Continue current medications - Encouraged sodium restriction, DASH or Mediterranean diet - HYDROCHLOROTHIAZIDE 12.5 MG CAPSULE 2. Need for influenza vaccination - ICD9: V04.81, ICD10: Z23 - INFLUENZA VACCINE, PRSV FREE, AGE 65+ YR, HIGH DOSE, TRIVALENT (FLUZONE HIGH-DOSE) 3. Chronic right shoulder pain - ICD9: 719.41, 338.29, ICD10: M25.511, G89.29 - Consider rescheduling PT. 4. Need for COVID-19 vaccine - ICD9: V04.89, ICD10: Z23 - PFIZER-BIONTECH COVID-19 VACCINE AGE 12+ YR (COMIRNATY) Zane Potter MD Allergies (more content not included)... Normal [facility] CNOVSPon 01-23-2024 CNOVSP Visit (SP) Office (HEMAWS) [place] MOSQUER[place] ([id number]) 1940 F NFR Date Time Provider Department 01/23/24 2:30 PM TREATMENT RM 14 [facility] During your visit today, we recorded the following information about you: Temperature Pulse Blood pressure Weight 99.2 degrees 69/minute 149/79 53.6 kg Referring Provider: DEE MILLER [[id number]] Allergies As of Date: 01/23/2024 Noted Allergy Reaction CIPRO (CIPROFLOXACIN) 12/10/2007 6 - Diarrhea FLAGYL (METRONIDAZOLE HCL) 12/10/2007 6 - Diarrhea LIPITOR (ATORVASTATIN) 2019 17 - Myalgia Comments: Myalgia, lethargic Date Reviewed: 01/23/2024 Reviewed by: Sana Dalton RN - Fully Assessed Reason for Visit: Non-Chemotherapy Treatment [795] Primary Visit Diagnosis:Seropositive rheumatoid arthritis (HCC) [M05.9] Order(s):TREATMENT PARAMETERS [[id number]] Order #: [id number]: 1 [] abatacept 500 mg in NaCl 0.9% 100 mL (ORENCIA)Disp: Rfl: NaCl 0.9% iv infusionDisp: Rfl: diphenhydrAMINE 50 mg injection (BENADRYL)Disp: Rfl: hydrocortisone sodium succinate (PF) 100 mg injection (Solu-CORTEF)Disp: Rfl: EPINEPHrine HCl (PF) 1 mg/mL (1 mL) 0.3 mg injectionDisp: Rfl: BCN NURSING COMMUNICATION [[id number]] Order #: [id number]: 1 STANDING Prescriptions as of 01/23/2024 - levothyroxine (SYNTHROID) 100 mcg tablet TAKE 1 AND 1/2 TABLETS ON SATURDAY ONLY, TAKE 1 TABLET REST OF DAYS - predniSONE (DELTASONE) 10 mg tablet Take by mouth with food. Take 4 tabs daily x 5 days, then 2 tabs daily x 5 days, then 1 tab daily x 5 days, then stop. - methotrexate 2.5 mg tablet TAKE 3 TABLETS ONCE WEEKLY - meloxicam (MOBIC) 7.5 mg tablet TAKE 1 TABLET DAILY NEEDED - hydroCHLOROthiazide 12.5 mg capsule Take 1 capsule by mouth once daily as needed (vertigo). As needed for vertigo - LORazepam (ATIVAN) 0.5 mg Take 1 tablet by mouth at bedtime as needed (anxiety) for up to 180 days. - rosuvastatin (CRESTOR) 10 mg tablet Take 1 tablet by mouth daily at bedtime. - leucovorin (LEUCOVORIN) 5 mg tablet Take one tablet once weekly, 10 to 12 hours after methotrexate administration - oxybutynin (DITROPAN) 5 mg tablet Take 1 tablet by mouth two times a day. - aspirin, enteric coated (ASPIRIN, ENTERIC COATED) 81 mg EC tablet Take 1 tablet by mouth two times a day for 28 days. - abatacept (ORENCIA) 250 mg injection Inject 250 mg intravenously once every month. - cholecalciferol (VITAMIN D3) 1,000 unit tab Take 1,000 Units by mouth once daily. Facility-Administered Medications as of 01/23/2024 - NaCl 0.9% iv infusion - diphenhydrAMINE 50 mg injection (BENADRYL) - hydrocortisone sodium succinate (PF) 100 mg injection (Solu-CORTEF) - EPINEPHrine HCl (PF) 1 mg/mL (1 mL) 0.3 mg injection Problem List As Of Date 01/23/2024 Noted Resolved Polymyalgia Rheumatica [M35.3] 04/18/2000 06/14/2009 HEMATURIA [599.7] 04/18/2000 Edema [R60.9] 04/18/2000 08/30/2017 Lump or mass in breast [N63.0] 04/18/2000 09/01/2014 Acquired hypothyroidism [E03.9] Venous insufficiency [I87.2] 04/18/2007 History of diverticulitis [Z87.19] 11/13/2007 Allergy to latex [Z91.040] 12/10/2007 10/17/2023 Benign neoplasm of breast [D24.9] 08/30/2017 Disorder of Bone and Cartilage, Unspecified [M8* 06/14/2009 Malignant neoplasm of skin [C44.90] Asymptomatic varicose veins [I83.90] 12/10/2007 09/01/2014 Diffuse cystic mastopathy [N60.19] 04/06/2008 10/17/2023 Digital mucous cyst [M67.449] 11/25/2009 10/17/2023 Dystrophia unguis mediana canaliformis [L60.9] 11/25/2009 10/17/2023 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] 11/25/2009 08/30/2017 Actinic Damage///Sun-Damaged Skin [L57.8] 11/25/2009 09/01/2014 Solar Lentigines [L81.4] 11/25/2009 09/01/2014 Other seborrheic keratosis [L82.1] 11/25/2009 09/01/2014 Postmenopausal atrophic vaginitis [N95.2] 06/06/2010 10/17/2023 Urgency of urination [R39.15] 06/06/2010 10/17/2023 Urge incontinence [N39.41] 06/06/2010 Screening for malignant neoplasm of the cervix *06/06/2010 10/17/2023 Family history of malignant neoplasm of breast *06/06/2010 10/17/2023 Ventral hernia, unspecified, without mention of*03/09/2011 08/30/2017 Encounter for long-term (current) use of medica*05/31/2011 10/17/2023 RA (rheumatoid arthritis) [M06.9] 05/31/2011 09/01/2014 Backache, unspecified [M54.9] 12/03/2011 10/17/2023 Hematuria [R31.9] 06/09/2012 10/17/2023 Fibrocystic breast [N60.19] 07/09/2013 10/17/2023 Thoracic or lumbosacral neuritis or radiculitis*09/16/2013 10/17/2023 Facet hypertrophy of lumbar region [M47.816] 11/03/2013 Lumbar spondylosis [M47.816] 11/03/2013 10/17/2023 Lumbar radiculopathy [M54.16] 11/03/2013 10/17/2023 Lumbar disc displacement without myelopathy [M5*11/03/2013 10/17/2023 Seropositive rheumatoid arthritis (HCC) [M05.9] 10/22/2014 Encounter for long-term current use of medicati*10/22/2014 08/30/2017 Lumbar stenosis [M (more content not included)... Normal [facility] CNOVon 01-20-2024 CNOV Office Visit (INTMWS ) [place] MOS[place] Christian ([id number]) 1940 F NFR Date Time Provider Department 01/20/24 1:20 PM ERICA RENEE INTMWS During your visit today, we recorded the following information about you: Pulse Respiration Blood pressure Weight 74/minute 12/minute 134/74 53.9 kg Erica Renee, SENIOR PUBLICATIONS SPECIALIST.EMISSION SPECIALIST 01/20/2024 1:53 PM Signed CC: Patient presents with: Pain (Shoulder Pain) HPI [place] Christian Demetri is a 83 year old female who presents today for right shoulder pain x 5 months, worsening over the past three weeks. Injury: Patient does not recall any specific injury. 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 He is a lot larger than her and she has to lift him in bed, etc. Located: entire right shoulder Described as aching, sometimes sharp Clicking, locking, popping, feeling like the shoulder is not stable, feeling like the shoulder is giving out : shoulder locks up at times, right arm feels weak Associated symptoms: pain is interfering with sleep and ADL's. She notes no neck pain, no radiation of shoulder pain, and no numbness or tingling noted of the upper extremity exhibits aggravating factors of Any movement of the arm except reaching behind. exhibits alleviating factors of none. Treatment: none PMH: RA, this does not feel like an RA flare Review of Systems Constitutional: Negative for chills, diaphoresis and fever. Respiratory: Negative for cough, shortness of breath and wheezing. Cardiovascular: Negative for chest pain, palpitations and leg swelling. PAST MEDICAL HISTORY No date: Acquired hypothyroidism No date: Deep vein thrombosis (DVT) ([facility]) 04/06/2008: Diffuse cystic mastopathy No date: Disorder of bone and cartilage, unspecified Comment: history of osteopenia No date: Diverticulosis of colon (without mention of hemorrhage) No date: Edema 08/31/2013: Hypertension No date: Internal hemorrhoids without mention of complication 11/03/2013: Lumbar disc displacement without myelopathy 11/03/2013: Lumbar radiculopathy 11/03/2013: Lumbar spondylosis 11/17/2014: Lumbar stenosis No date: Malignant neoplasm of skin Comment: face,clavicle,left leg-Per 01/27/2021: Mixed hyperlipidemia 08/29/2020: Ocular migraine 2007: Other malignant neoplasm of skin, site unspecified Comment: SCC face,clavicle,left leg-Per 2004: Polymyalgia rheumatica ([facility]) Comment: Resolved 2005 06/06/2010: Postmenopausal atrophic vaginitis 07/23/2023: Primary osteoarthritis of right knee No date: Rheumatoid arthritis ([facility]) 11/2014: Serotonin syndrome Comment: s/p laminectomy 11/2014- tachycardia with tramadol use. 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 Blaine Duron 07/23/2023: Syncope 06/19/2021: Tendinitis of left hip flexor 08/25/2020: TIA (transient ischemic attack) 10/02/2022: Trochanteric bursitis of both hips 2009: Urge incontinence 2009: Urgency of urination 04/18/2007: Venous insufficiency No date: Vertigo PAST SURGICAL HISTORY No date: ANESTH DIAGNOSTIC ARTHROSCOPIC PROC KNEE JOINT Comment: right No date: BIOPSY BREAST OPEN INCISIONAL Comment: Bx of breast, incisional 07/13/2006: BREAST BIOPSY CORE Comment: U/S needle core upper mid right breast 09/2010: CARPAL TUNNEL Comment: Dr Tello No date: CHOLECYSTECTOMY Comment: lap 03/12/2002: COLONOSCOPY FLX DX W/COLLJ SPEC WHEN PFRMD Comment: Colonoscopy 01/21/2009: COLONOSCOPY FLX DX W/COLLJ SPEC WHEN PFRMD Comment: Colonoscopy; Stricture dilated at colectomy site 04/02/2011: IMPLANT MESH OPN HERNIA RPR/DEBRIDEMENT CLOSURE Comment: abd.hernia repair 11/07/2015: LAMINOTOMY (HEMILAMINECTOMY), WITH DECOMPRESSION OF NERVE ROOT(S); Right Comment: L5-S1 11/16/2014: LAMINOTOMY (HEMILAMINECTOMY), WITH DECOMPRESSION OF NERVE ROOT(S); Left 12/11/2007: LAPAROSCOPY COLECTOMY PARTIAL W/ANASTOMOSIS Comment: Lap. Sigmoid colectomy for diverticulitis 10/01/2006: PAST SURGICAL HISTORY OF Comment: LARISA PROCEDURE DONE ON FACE FOR SQUAMEOUS CELL CA, 03/2007: PAST SURGICAL HISTORY OF Comment: Removal of squamous cell carcinoma from clavicle and left leg by 04/19/2004: PAST SURGICAL HISTORY OF Comment: excision from R ear 06/11/2007: PAST SURGICAL HISTORY OF Comment: cystoscopy/retrograde 03/2013: PAST SURGICAL HISTORY OF Comment: titanium plate removed from left thumb 09/16/2018: PAST SURGICAL HISTORY OF; Right Comment: MOHS procedure, right cheek - [facility] 06/01/2010: SIGMOIDOSCOPY FLX DX W/COLLJ SPEC BR/WA IF PFRMD 01/02/2016: TOTAL HIP REPLACEMENT; Left 02/13/2021: TOTAL HIP REPLACEMENT; Right 05/16/2015: TOTAL KNEE REPLACEMENT; Left Comment: Total Left Knee 07/22/2023: TOTAL KNEE REPLACEMENT; Right ALLERGIES Cipro [Ciprofloxacin], Flagyl [Metronidazol (more content not included)... Normal [facility] XR SHLDR >/=3V AP/MAX AP/OTH R RTon 01-20-2024 XR SHLDR >/=3V AP/MAX AP/OTHR RT * * *Final Report* * * DATE OF EXAM: Jan 20 2024 1:59PM WOX 5253 - XR SHLDR >/=3V AP/MAX AP/OTHR RT / PROCEDURE REASON: multiple diagnoses * * * * Physician Interpretation * * * * EXAMINATION / TECHNIQUE: XR SHLDR >/=3V AP/MAX AP/OTHR RT HISTORY: Posterior right shoulder pain x 3-4 weeks without injury Chronic right shoulder pain Chronic right shoulder pain COMPARISON: None. RESULT: No acute fracture or osseous malalignment. Severe glenohumeral and mild acromioclavicular osteoarthritis. IMPRESSION: Severe glenohumeral osteoarthritis. Auto Winder: PSCAdal Transcribe Date/Time: Jan 23 2024 6:10A Dictated by : YURI TRIMBLE MD This examination was interpreted and the report reviewed and electronically signed by: YURI TRIMBLE MD on Jan 23 2024 6:11AM EST [id number] Normal [facility] ALT SerPl-cCncon 01-15-2024 ALT [Catalytic activity/Vol] 22 U/L Normal 7-38 [facility] Comment on above: Order Comment: Eliot figueroa Type: BLOOD SPECIMEN Ordering Facility: [facility] Address: [address] [place] [address] Performed By: #### 1 7861-6, 3016-3 #### [facility] CLIA [id number] [address] [place] [address] [place] AST SerPl-cCncon 01-15-2024 AST [Catalytic activity/Vol] 33 U/L Normal 13-35 [facility] Comment on above: Order Comment: Eliot figueroa Type: BLOOD SPECIMEN Ordering Facility: [facility] Address: [address] [place] [address] Performed By: #### 1 7861-6, 3016-3 #### [facility] CLIA [id number] [address] [place] [address] [place] CBC panel Auto (Bld)on 01-14 Erythrocyte distribution width (RBC) [Ratio] 14.4 % Normal 11.5-15.0 [facility] Comment on above: Order Comment: Eliot figueroa Type: BLOOD SPECIMEN Ordering Facility: [facility] Address: [address] [place] [address] Performed By: #### 5 8410-2 #### [facility] CLIA [id number] [address] [place] [address] [place] Hematocrit (Bld) [Volume fraction] 38.8 % Normal 36.0-46.0 [facility] Comment on above: Order Comment: Speci men Type: BLOOD SPECIMEN Ordering Facility: [facility] Address: [address] [place] [address] Performed By: #### 5 8410-2 #### [facility] CLIA [id number] [address] [place] [address] [place] Hemoglobin (Bld) [Mass/Vol] 12.6 g/dL Normal 11.5-15.5 [facility] Comment on above: Order Comment: Speci men Type: BLOOD SPECIMEN Ordering Facility: [facility] Address: [address] [place] [address] Performed By: #### 5 8410-2 #### [facility] CLIA [id number] [address] [place] [address] [place] MCH (RBC) [Entitic mass] 31.7 pg Normal 26.0-34.0 [facility] Comment on above: Order Comment: Speci men Type: BLOOD SPECIMEN Ordering Facility: [facility] Address: [address] [place] [address] Performed By: #### 5 8410-2 #### [facility] CLIA [id number] [address] [place] [address] [place] MCHC (RBC) [Mass/Vol] 32.5 g/dL Normal 30.5-36.0 [facility] Comment on above: Order Comment: Speci men Type: BLOOD SPECIMEN Ordering Facility: [facility] Address: [address] [place] [address] Performed By: #### 5 8410-2 #### [facility] CLIA [id number] [address] [place] [address] [place] MCV (RBC) [Entitic vol] 97.7 fL Normal 80.0-100.0 [facility] Comment on above: Order Comment: Speci men Type: BLOOD SPECIMEN Ordering Facility: [facility] Address: [address] [place] [address] Performed By: #### 5 8410-2 #### [facility] CLIA [id number] [address] [place] [address] [place] Nucleated RBC (Bld) [#/Vol] 10*3/uL Normal <0.01 [facility] Comment on above: Order Comment: Speci men Type: BLOOD SPECIMEN Ordering Facility: [facility] Address: [address] [place] [address] Performed By: #### 5 8410-2 #### [facility] CLIA [id number] [address] [place] [address] [place] Platelet mean volume (Bld) [Entitic vol] 10.3 fL Normal 9.0-12.7 [facility] Comment on above: Order Comment: Speci men Type: BLOOD SPECIMEN Ordering Facility: [facility] Address: [address] [place] [address] Performed By: #### 5 8410-2 #### [facility] CLIA [id number] [address] [place] [address] [place] Platelets (Bld) [#/Vol] 229 10*3/uL Normal 150-400 [facility] Comment on above: Order Comment: Speci men Type: BLOOD SPECIMEN Ordering Facility: [facility] Address: [address] [place] [address] Performed By: #### 5 8410-2 #### [facility] CLIA [id number] [address] [place] [address] [place] RBC (Bld) [#/Vol] 3.97 10*6/uL Normal 3.90-5.20 [facility] Comment on above: Order Comment: Speci men Type: BLOOD SPECIMEN Ordering Facility: [facility] Address: [address] [place] [address] Performed By: #### 5 8410-2 #### [facility] CLIA [id number] [address] [place] [address] [place] WBC (Bld) [#/Vol] 6.96 10*3/uL Normal 3.70-11.00 [facility] Comment on above: Order Comment: Speci men Type: BLOOD SPECIMEN Ordering Facility: [facility] Address: [address] [place] [address] Performed By: #### 5 8410-2 #### [facility] CLIA [id number] [address] [place] [address] [place] CREATININE BLDon 01-15-2024 Creatinine [Mass/Vol] 0.84 mg/dL Normal 0.58-0.96 [facility] Comment on above: Order Comment: Speci men Type: BLOOD SPECIMEN Ordering Facility: [facility] Address: [address] [place] [address] Performed By: #### 1 7861-6, 3016-3 #### [facility] CLIA [id number] [address] [place] [address] [place] Creatinine and Glomerular filtration rate.predicted panel (S/P/Bld) 69 mL/min/1.73m??? Normal >=60 [facility] Comment on above: Order Comment: Speci men Type: BLOOD SPECIMEN Ordering Facility: [facility] Address: [address] [place] [address] Result Comment: Rosy mated Glomerular Filtration Rate (eGFR) is calculated using the 2020 CKD-EPI creatinine equation. This equation utilizes serum creatinine, sex, and age as parameters. The creatinine assay has traceable calibration to isotope dilution-mass spectrometry. Refer to KDIGO guidelines for clinical interpretation. In patients with unstable renal function, e.g. those with acute kidney injury, the eGFR may not accurately reflect actual GFR. Performed By: #### 1 7861-6, 3016-3 #### [facility] CLIA [id number] [address] [place] [address] [place] BD DXA - AXIAL SKELETONon BD DXA - AXIAL SKELETON * * *Final Report* * * DATE OF EXAM: Dec 30 2023 2:22PM WRB 0804 - BD DXA - AXIAL SKELETON / PROCEDURE REASON: multiple diagnoses * * * * Physician Interpretation * * * * EXAMINATION: DXA BONE DENSITOMETRY BD DXA - AXIAL SKELETON PATIENT DEMOGRAPHICS: Age: 83 years, Gender: Female SCANNER INFORMATION: DXA Model: [email or web address] [id number] Date Scanned: 12/30/2023 2:22 PM CLINICAL HISTORY: DIAGNOSTIC Osteopenia of multiple sites Encounter for long-term (current) use of medications . RISK FACTORS FOR OSTEOPOROSIS AND ASSOCIATED FRACTURES REPORTED BY THIS PATIENT: Please refer to Bone Health Questionnaire in the EMR CURRENT THERAPY: Please refer to Bone Health Questionnaire in the EMR TECHNICAL LIMITATIONS: Degenerative disease of the spine bilateral hip fractures / surgery RESULTS: Lumbar spine (L1, L2, L3, L4): 1.302 g/cm2, T-score 2.3 , Z-score 5.1 Lumbar spine: 2004 : 1.071 g/cm2 Statistically significant increase Left Forearm, Distal 1/3 of Radius: 0.532 g/cm2, T-score -2.7 , Z-score 0.9 CHANGE IS STATISTICALLY SIGNIFICANT IN THE SPINE OR HIP IF GREATER THAN OR EQUAL TO 0.04 g/cm2 VERTEBRAL FRACTURE ASSESSMENT Not performed. TRABECULAR BONE ASSESSMENT TBS not performed: IMPRESSION: THE LOWEST T-SCORE IS -2.7 IN THE LEFT FOREARM 1) DIAGNOSIS (based on BMD alone): OSTEOPOROSIS - Caution: Medical conditions other than osteoporosis may cause low bone density, such as osteomalacia or renal osteodystrophy. Clinical correlation is necessary. 2) FRACTURE RISK (based on BMD alone) INCREASED - Caution: Fracture risk may be increased independent of BMD in patients with corticosteroid use, age greater than 65 years, or a history of prior fragility fracture. - FRAX was not calculated: no hip scan performed RECOMMENDATIONS: Follow-up in 2 years or as clinically indicated. Patients that are taking corticosteroids, are transplant recipients or have hyperparathyroidism should have annual follow-up. Follow-up scans should always be done on the same machine for accurate comparison. FOR MORE INFORMATION ABOUT DIAGNOSIS AND TREATMENT: [facility] for Osteoporosis and Metabolic Bone Disease:? www.ccf.org/arthritis/o steo National Osteoporosis Foundation:? www.nof.org International Society of Clinical Densitometry www.iscd.org Auto Winder: MURPHY Transcribe Date/Time: Jan 01 2024 8:00A Dictated by : JEANINE SALAZAR MD This examination was interpreted and the report reviewed and electronically signed by: JEANINE SALAZAR MD on Jan 01 2024 8:02AM EST [id number] -2.7 Normal [facility] CNOVSPon 12-26-2023 CNOVSP Visit (SP) Office ([place]) [place] ([id number]) 1940 F NFR Date Time Provider Department 12/26/23 2:30 PM TREATMENT RM [facility] During your visit today, we recorded the following information about you: Temperature Pulse Blood pressure 98.2 degrees 60/minute 116/67 Referring Provider: DEE MILLER [[id number]] Allergies As of Date: 12/26/2023 Noted Allergy Reaction CIPRO (CIPROFLOXACIN) 12/10/2007 6 - Diarrhea FLAGYL (METRONIDAZOLE HCL) 12/10/2007 6 - Diarrhea LIPITOR (ATORVASTATIN) 2019 17 - Myalgia Comments: Myalgia, lethargic Date Reviewed: 12/26/2023 Reviewed by: Sana Dalton RN - Fully Assessed Primary Visit Diagnosis:Seropositive rheumatoid arthritis (HCC) [M05.9] Other Visit Diagnosis:Osteopenia of multiple sites [M85.89] Order(s):HEP REMOTE PANEL BL [SQHREMOP] Order #: [id number] FUTURE TREATMENT PARAMETERS [[id number]] Order #: [id number]: 1 [] abatacept 500 mg in NaCl 0.9% 100 mL (ORENCIA)Disp: Rfl: NaCl 0.9% iv infusionDisp: Rfl: diphenhydrAMINE 50 mg injection (BENADRYL)Disp: Rfl: hydrocortisone sodium succinate (PF) 100 mg injection (Solu-CORTEF)Disp: Rfl: EPINEPHrine HCl (PF) 1 mg/mL (1 mL) 0.3 mg injectionDisp: Rfl: N NURSING COMMUNICATION [[id number]] Order #: [id number]: 1 STANDING TREATMENT PARAMETERS [] Order #: [id number]: 1 TREATMENT PARAMETERS [] Order #: [id number]: 1 [] acetaminophen 1,000 mg tab(s) (TYLENOL)Disp: Rfl: [] zoledronic acid 5 mg PREMIX piggyback (RECLAST)Disp: Rfl: NaCl 0.9% iv infusionDisp: Rfl: diphenhydrAMINE 50 mg injection (BENADRYL)Disp: Rfl: hydrocortisone sodium succinate (PF) 100 mg injection (Solu-CORTEF)Disp: Rfl: EPINEPHrine HCl (PF) 1 mg/mL (1 mL) 0.3 mg injectionDisp: Rfl: N NURSING COMMUNICATION [[id number]] Order #: [id number]: 1 STANDING HEP REMOTE PANEL BL [SQHREMOP] Order #: [id number]. #:[id number] HEPATITIS C ANTIBODY IA WITH CONFIRMATION [[id number]] Reflex Order#: [id number] (Ord#:[id number])Spec. #:[id number] HEPATITIS B SURFACE ANTIGEN [SQHBSAG] Reflex Order#: [id number] (Ord#:[id number])Spec. #:[id number] HEPATITIS B SURFACE ANTIBODY [SQAHBSAG] Reflex Order#: [id number] (Ord#:[id number])Spec. #:[id number] HEPATITIS B CORE ANTIBODY TOTAL [SQAHBCOT] Reflex Order#: [id number] (Ord#:[id number])Spec. #:[id number] Prescriptions as of 12/26/2023 - hydroCHLOROthiazide 12.5 mg capsule Take 1 capsule by mouth once daily as needed (vertigo). As needed for vertigo - LORazepam (ATIVAN) 0.5 mg Take 1 tablet by mouth at bedtime as needed (anxiety) for up to 180 days. - rosuvastatin (CRESTOR) 10 mg tablet Take 1 tablet by mouth daily at bedtime. - methotrexate 2.5 mg tablet TAKE 3 TABLETS ONCE WEEKLY - leucovorin (LEUCOVORIN) 5 mg tablet Take one tablet once weekly, 10 to 12 hours after methotrexate administration - meloxicam (MOBIC) 7.5 mg tablet Take 1 tablet by mouth once daily as needed. - levothyroxine (SYNTHROID) 100 mcg tablet TAKE 1 AND 1/2 TABLETS ON SATURDAY AND SATURDAY ONLY, TAKE 1 TABLET REST OF DAYS - oxybutynin (DITROPAN) 5 mg tablet Take 1 tablet by mouth two times a day. - methotrexate 2.5 mg tablet TAKE 3 TABLETS ONCE WEEKLY - aspirin, enteric coated (ASPIRIN, ENTERIC COATED) 81 mg EC tablet Take 1 tablet by mouth two times a day for 28 days. - abatacept (ORENCIA) 250 mg injection Inject 250 mg intravenously once every month. - cholecalciferol (VITAMIN D3) 1,000 unit tab Take 1,000 Units by mouth once daily. Facility-Administered Medications as of 12/26/2023 - NaCl 0.9% iv infusion - diphenhydrAMINE 50 mg injection (BENADRYL) - hydrocortisone sodium succinate (PF) 100 mg injection (Solu-CORTEF) - EPINEPHrine HCl (PF) 1 mg/mL (1 mL) 0.3 mg injection - NaCl 0.9% iv infusion - diphenhydrAMINE 50 mg injection (BENADRYL) - hydrocortisone sodium succinate (PF) 100 mg injection (Solu-CORTEF) - EPINEPHrine HCl (PF) 1 mg/mL (1 mL) 0.3 mg injection Problem List As Of Date 12/26/2023 Noted Resolved Polymyalgia Rheumatica [M35.3] 04/18/2000 06/14/2009 HEMATURIA [599.7] 04/18/2000 Edema [R60.9] 04/18/2000 08/30/2017 Lump or mass in breast [N63.0] 04/18/2000 09/01/2014 Acquired hypothyroidism [E03.9] Venous insufficiency [I87.2] 04/18/2007 History of diverticulitis [Z87.19] 11/13/2007 Allergy to latex [Z91.040] 12/10/2007 10/17/2023 Benign neoplasm of breast [D24.9] 08/30/2017 Disorder of Bone and Cartilage, Unspecified [M8* 06/14/2009 Malignant neoplasm of skin [C44.90] Asymptomatic varicose veins [I83.90] 12/10/2007 09/01/2014 Diffuse cystic mastopathy [N60.19] 04/06/2008 10/17/2023 Digital mucous cyst [M67.449] 11/25/2009 10/17/2023 Dystrophia unguis mediana canaliformis [L60.9] 11/25/2009 10/17/2023 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] 11/25/2009 08/30/2017 Actinic Emelyn (more content not included)... Normal [facility] HBV core Ab Ser Qlon 024 HBV core Ab Ql (S) Negative Normal Negative [facility] Comment on above: Order Comment: Speci men Type: BLOOD SPECIMEN Ordering Facility: [facility] Address: [address] [place] [address] Result Comment: No e vidence of current or past infection with Hepatitis B virus. Should recent infection be suspected, repeat testing may be considered 3-4 weeks after this draw. Performed By: #### 5 8410-2 #### [facility] CLIA [id number] [address] [place] [address] [id number] [place] [address] [place] HBV surface Ab Ql (S)on 12-11 HBV surface Ab Qn (S) <8.00 Normal [facility] Comment on above: Order Comment: Speci men Type: BLOOD SPECIMEN Ordering Facility: [facility] Address: [address] [place] [address] Result Comment: <8 m IU/mL: No serological evidence of immunity to Hepatitis B Virus. >/= 8 to <12 mIU/mL: No serological evidence of immunity to Hepatitis B Virus. >/= 12 mIU/mL: Consistent with serological evidence of immunity to Hepatitis B Virus. Performed By: #### 5 8410-2 #### [facility] CLIA [id number] [address] [place] [address] [place] HBV surface Ab Ser Qlon 12-11 HBV surface Ab Ql (S) Negative Normal [facility] Comment on above: Order Comment: Speci men Type: BLOOD SPECIMEN Ordering Facility: [facility] Address: [address] [place] [address] Result Comment: No s erological evidence of immunity to Hepatitis B Virus. Performed By: #### 5 8410-2 #### [facility] CLIA [id number] [address] [place] [address] [place] HBV surface Ag Ser Qlon 12-11 HBV surface Ag Ql (S) Initially Reactive Abnormal Negati ve [facility] Comment on above: Order Comment: Speci men Type: BLOOD SPECIMEN Ordering Facility: [facility] Address: [address] [place] [address] Result Comment: Plea se see HBsAg confirmatory assay result. Confirmatory testing for hepatitis B surface antigen has been ordered and charged. Performed By: #### 5 8410-2 #### [facility] CLIA [id number] [address] [place] [address] OF [place] HBV surface Ag Ql (S) Negative Normal Negati ve, Test not Indicated [facility] Comment on above: Order Comment: Speci men Type: BLOOD SPECIMEN Ordering Facility[facility] Address: [address] [place] [address] Performed By: #### 5 8410-2 #### [facility] CLIA [id number] [address] [place] [address] [place] HCV Ab Ser Qlon 12-26-2023 HCV Ab Ql (S) Negative Normal Negative [facility] Comment on above: Order Comment: Speci men Type: BLOOD SPECIMEN Ordering Facility: [facility] Address: [address] [place] [address] Result Comment: The result suggests no evidence of active infection with Hepatitis C virus. Should recent infection be suspected, repeat testing may be considered 4-6 weeks after this draw. Performed By: #### 5 8410-2 #### [facility] CLIA [id number] [address] [place] [address] [place] Reny 12-25-2023 CNPN Telephone ([facility]) [place] ([id number]) 1940 F NFR Date Time Provider Department 12/25/23 NIA [facility] During your visit today, we recorded the following information about you: Allergies As of Date: 12/25/2023 Noted Allergy Reaction CIPRO (CIPROFLOXACIN) 12/10/2007 6 - Diarrhea FLAGYL (METRONIDAZOLE HCL) 12/10/2007 6 - Diarrhea LIPITOR (ATORVASTATIN) 2019 17 - Myalgia Comments: Myalgia, lethargic Date Reviewed: 11/28/2023 Reviewed by: Bebe Ritter, RN - Fully Assessed Prescriptions as of 12/25/2023 - hydroCHLOROthiazide 12.5 mg capsule Take 1 capsule by mouth once daily as needed (vertigo). As needed for vertigo - LORazepam (ATIVAN) 0.5 mg Take 1 tablet by mouth at bedtime as needed (anxiety) for up to 180 days. - rosuvastatin (CRESTOR) 10 mg tablet Take 1 tablet by mouth daily at bedtime. - methotrexate 2.5 mg tablet TAKE 3 TABLETS ONCE WEEKLY - leucovorin (LEUCOVORIN) 5 mg tablet Take one tablet once weekly, 10 to 12 hours after methotrexate administration - meloxicam (MOBIC) 7.5 mg tablet Take 1 tablet by mouth once daily as needed. - levothyroxine (SYNTHROID) 100 mcg tablet TAKE 1 AND 1/2 TABLETS ON SATURDAY AND SATURDAY ONLY, TAKE 1 TABLET REST OF DAYS - oxybutynin (DITROPAN) 5 mg tablet Take 1 tablet by mouth two times a day. - methotrexate 2.5 mg tablet TAKE 3 TABLETS ONCE WEEKLY - aspirin, enteric coated (ASPIRIN, ENTERIC COATED) 81 mg EC tablet Take 1 tablet by mouth two times a day for 28 days. - abatacept (ORENCIA) 250 mg injection Inject 250 mg intravenously once every month. - cholecalciferol (VITAMIN D3) 1,000 unit tab Take 1,000 Units by mouth once daily. Problem List As Of Date 12/25/2023 Noted Resolved Polymyalgia Rheumatica [M35.3] 04/18/2000 06/14/2009 HEMATURIA [599.7] 04/18/2000 Edema [R60.9] 04/18/2000 08/30/2017 Lump or mass in breast [N63.0] 04/18/2000 09/01/2014 Acquired hypothyroidism [E03.9] Venous insufficiency [I87.2] 04/18/2007 History of diverticulitis [Z87.19] 11/13/2007 Allergy to latex [Z91.040] 12/10/2007 10/17/2023 Benign neoplasm of breast [D24.9] 08/30/2017 Disorder of Bone and Cartilage, Unspecified [M8* 06/14/2009 Malignant neoplasm of skin [C44.90] Asymptomatic varicose veins [I83.90] 12/10/2007 09/01/2014 Diffuse cystic mastopathy [N60.19] 04/06/2008 10/17/2023 Digital mucous cyst [M67.449] 11/25/2009 10/17/2023 Dystrophia unguis mediana canaliformis [L60.9] 11/25/2009 10/17/2023 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] 11/25/2009 08/30/2017 Actinic Damage///Sun-Damaged Skin [L57.8] 11/25/2009 09/01/2014 Solar Lentigines [L81.4] 11/25/2009 09/01/2014 Other seborrheic keratosis [L82.1] 11/25/2009 09/01/2014 Postmenopausal atrophic vaginitis [N95.2] 06/06/2010 10/17/2023 Urgency of urination [R39.15] 06/06/2010 10/17/2023 Urge incontinence [N39.41] 06/06/2010 Screening for malignant neoplasm of the cervix *06/06/2010 10/17/2023 Family history of malignant neoplasm of breast *06/06/2010 10/17/2023 Ventral hernia, unspecified, without mention of*03/09/2011 08/30/2017 Encounter for long-term (current) use of medica*05/31/2011 10/17/2023 RA (rheumatoid arthritis) [M06.9] 05/31/2011 09/01/2014 Backache, unspecified [M54.9] 12/03/2011 10/17/2023 Hematuria [R31.9] 06/09/2012 10/17/2023 Fibrocystic breast [N60.19] 07/09/2013 10/17/2023 Thoracic or lumbosacral neuritis or radiculitis*09/16/2013 10/17/2023 Facet hypertrophy of lumbar region [M47.816] 11/03/2013 Lumbar spondylosis [M47.816] 11/03/2013 10/17/2023 Lumbar radiculopathy [M54.16] 11/03/2013 10/17/2023 Lumbar disc displacement without myelopathy [M5*11/03/2013 10/17/2023 Seropositive rheumatoid arthritis (HCC) [M05.9] 10/22/2014 Encounter for long-term current use of medicati*10/22/2014 08/30/2017 Lumbar stenosis [M48.061] 11/17/2014 10/17/2023 Rheumatoid arthritis involving both hands with *03/07/2015 04/25/2015 Chronic pain of right knee [M25.561, G89.29] 06/20/2015 10/17/2023 Status post total left knee replacement [Z96.65*06/20/2015 Abnormality of gait [R26.9] 06/20/2015 08/30/2017 Absolute anemia [D64.9] 07/08/2015 Sciatica [M54.30] 07/08/2015 10/17/2023 Other specified rheumatoid arthritis, multiple *12/22/2015 Anxiety neurosis [F41.1] 12/22/2015 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 Normal [facility] CNOVSPon 11-28-2023 CNOVSP Visit (SP) Office ([facility]) [place] ([id number]) 1940 F NFR Date Time Provider Department 11/28/23 2:30 PM TREATMENT RM [facility] During your visit today, we recorded the following information about you: Temperature Pulse Blood pressure 97.1 degrees 53/minute 147/77 Bebe Ritter, RN 11/28/2023 3:04 PM Signed Reclast last infused in July 2023, orders are for yearly. Orders dated for October; appt note states yearly. Contacted Dr. Rico for clarification. No response at this time. Will hold Reclast today until valid orders are obtained. Referring Provider: DEE MILLER [[id number]] Allergies As of Date: 11/28/2023 Noted Allergy Reaction CIPRO (CIPROFLOXACIN) 12/10/2007 6 - Diarrhea FLAGYL (METRONIDAZOLE HCL) 12/10/2007 6 - Diarrhea LIPITOR (ATORVASTATIN) 2019 17 - Myalgia Comments: Myalgia, lethargic Date Reviewed: 11/28/2023 Reviewed by: Bebe Ritter RN - Fully Assessed Reason for Visit: Non-Chemotherapy Treatment [795] Primary Visit Diagnosis:Malignant neoplasm of skin [C44.90] Other Visit Diagnosis:Seropositive rheumatoid arthritis (HCC) [M05.9] Order(s):COMPREHENSIVE METABOLIC PANEL [SQCMP] Order #: [id number] FUTURE TREATMENT PARAMETERS [[id number]] Order #: [id number]: 1 [] abatacept 500 mg in NaCl 0.9% 100 mL (ORENCIA)Disp: Rfl: NaCl 0.9% iv infusionDisp: Rfl: diphenhydrAMINE 50 mg injection (BENADRYL)Disp: Rfl: hydrocortisone sodium succinate (PF) 100 mg injection (Solu-CORTEF)Disp: Rfl: EPINEPHrine HCl (PF) 1 mg/mL (1 mL) 0.3 mg injectionDisp: Rfl: BCN NURSING COMMUNICATION [[id number]] Order #: [id number]: 1 STANDING Prescriptions as of 11/28/2023 - hydroCHLOROthiazide 12.5 mg capsule Take 1 capsule by mouth once daily as needed (vertigo). As needed for vertigo - LORazepam (ATIVAN) 0.5 mg Take 1 tablet by mouth at bedtime as needed (anxiety) for up to 180 days. - rosuvastatin (CRESTOR) 10 mg tablet Take 1 tablet by mouth daily at bedtime. - methotrexate 2.5 mg tablet TAKE 3 TABLETS ONCE WEEKLY - leucovorin (LEUCOVORIN) 5 mg tablet Take one tablet once weekly, 10 to 12 hours after methotrexate administration - meloxicam (MOBIC) 7.5 mg tablet Take 1 tablet by mouth once daily as needed. - levothyroxine (SYNTHROID) 100 mcg tablet TAKE 1 AND 1/2 TABLETS ON SATURDAY AND SATURDAY ONLY, TAKE 1 TABLET REST OF DAYS - oxybutynin (DITROPAN) 5 mg tablet Take 1 tablet by mouth two times a day. - methotrexate 2.5 mg tablet TAKE 3 TABLETS ONCE WEEKLY - aspirin, enteric coated (ASPIRIN, ENTERIC COATED) 81 mg EC tablet Take 1 tablet by mouth two times a day for 28 days. - abatacept (ORENCIA) 250 mg injection Inject 250 mg intravenously once every month. - cholecalciferol (VITAMIN D3) 1,000 unit tab Take 1,000 Units by mouth once daily. Facility-Administered Medications as of 11/28/2023 - NaCl 0.9% iv infusion - diphenhydrAMINE 50 mg injection (BENADRYL) - hydrocortisone sodium succinate (PF) 100 mg injection (Solu-CORTEF) - EPINEPHrine HCl (PF) 1 mg/mL (1 mL) 0.3 mg injection Problem List As Of Date 11/28/2023 Noted Resolved Polymyalgia Rheumatica [M35.3] 04/18/2000 06/14/2009 HEMATURIA [599.7] 04/18/2000 Edema [R60.9] 04/18/2000 08/30/2017 Lump or mass in breast [N63.0] 04/18/2000 09/01/2014 Acquired hypothyroidism [E03.9] Venous insufficiency [I87.2] 04/18/2007 History of diverticulitis [Z87.19] 11/13/2007 Allergy to latex [Z91.040] 12/10/2007 10/17/2023 Benign neoplasm of breast [D24.9] 08/30/2017 Disorder of Bone and Cartilage, Unspecified [M8* 06/14/2009 Malignant neoplasm of skin [C44.90] Asymptomatic varicose veins [I83.90] 12/10/2007 09/01/2014 Diffuse cystic mastopathy [N60.19] 04/06/2008 10/17/2023 Digital mucous cyst [M67.449] 11/25/2009 10/17/2023 Dystrophia unguis mediana canaliformis [L60.9] 11/25/2009 10/17/2023 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] 11/25/2009 08/30/2017 Actinic Damage///Sun-Damaged Skin [L57.8] 11/25/2009 09/01/2014 Solar Lentigines [L81.4] 11/25/2009 09/01/2014 Other seborrheic keratosis [L82.1] 11/25/2009 09/01/2014 Postmenopausal atrophic vaginitis [N95.2] 06/06/2010 10/17/2023 Urgency of urination [R39.15] 06/06/2010 10/17/2023 Urge incontinence [N39.41] 06/06/2010 Screening for malignant neoplasm of the cervix *06/06/2010 10/17/2023 Family history of malignant neoplasm of breast *06/06/2010 10/17/2023 Ventral hernia, unspecified, without mention of*03/09/2011 08/30/2017 Encounter for long-term (current) use of medica*05/31/2011 10/17/2023 RA (rheumatoid arthritis) [M06.9] 05/31/2011 09/01/2014 Backache, unspecified [M54.9] 12/03/2011 10/17/2023 Hematuria [R31.9] 06/09/2012 10/17/2023 Fibrocystic breast [N60.19] 07/09/2013 10/17/2023 Thoracic or lumbosacral neuritis or radiculitis*09/16/2013 10/17/2023 Facet hypertrophy of lumbar region [M47.816] 11/03/2013 Lumbar (more content not included)... Normal [facility] Comprehensive metabolic 2000 panelOrdered By: Perlita Lozano on 11-28-2023 Albumin [Mass/Vol] 4.4 g/dL 3.9 - 4.9 g/dL [facility] ALP [Catalytic activity/Vol] 51 U/L 34 - 123 U/L [facility] ALT [Catalytic activity/Vol] 17 U/L 7 - 38 U/L [facility] Anion gap [Moles/Vol] 6 mmol/L Low 8 - 15 mmol/L [facility] AST [Catalytic activity/Vol] 26 U/L 13 - 35 U/L [facility] Bilirubin [Mass/Vol] 0.6 mg/dL 0.2 - 1 .3 mg/dL [facility] Calcium [Mass/Vol] 9.5 mg/dL 8.5 - 10. 2 mg/dL [facility] Chloride [Moles/Vol] 102 mmol/L 98 - 10 7 mmol/L [facility] CO2 [Moles/Vol] 28 mmol/L 22 - 30 mmol/L [facility] Creatinine [Mass/Vol] 0.74 mg/dL 0.58 - 0.96 mg/dL [facility] GFR/1.73 sq M.predicted among non-blacks MDRD (S/P/Bld) [Vol rate/Area] 80 mL/min/{1.73_m2} - PINF [facility] Comment on above: Estimated Glomerular Filtration Rate (eGFR) is calculated using the 2020 CKD-EPI creatinine equation. This equation utilizes serum creatinine, sex, and age as parameters. The creatinine assay has traceable calibration to isotope dilution-mass spectrometry. Refer to KDIGO guidelines for clinical interpretation. In patients with unstable renal function, e.g. those with acute kidney injury, the eGFR may not accurately reflect actual GFR. Glucose [Mass/Vol] 91 mg/dL 74 - 99 mg/dL [facility] Comment on above: The [place] [employer] s Association (ADA) provides guidance for cutoff values for fasting glucose and random glucose. The ADA defines fasting as no caloric intake for at least 8 hours. Fasting plasma glucose results between 100 to 125 mg/dL indicate increased risk for diabetes (prediabetes). Fasting plasma glucose results greater than or equal to 126 mg/dL meet the criteria for diagnosis of diabetes. In the absence of unequivocal hyperglycemia, results should be confirmed by repeat testing. In a patient with classic symptoms of hyperglycemia or hyperglycemic crisis, random plasma glucose results greater than or equal to 200 mg/dL meet the criteria for diagnosis of diabetes. Reference: Standards of Medical Care in Diabetes 2016, [place] [employer]. Diabetes Care. 2016.39(Suppl 1). Interpretation and review of laboratory results Abnormal [facility] Potassium [Moles/Vol] 4.1 mmol/L 3.7 - 5.1 mmol/L [facility] Protein [Mass/Vol] 6.5 g/dL 6.3 - 8.0 g/dL [facility] Sodium [Moles/Vol] 136 mmol/L 136 - 144 mmol/L [facility] Urea nitrogen [Mass/Vol] 21 mg/dL 7 - 21 mg/dL [facility] Comprehensive metabolic 2000 panelon 11-28-2023 Albumin [Mass/Vol] 4.4 g/dL Normal 3.9-4.9 [facility] Comment on above: Order Comment: Speci men Type: BLOOD SPECIMEN Ordering Facility: [facility] Address: [address] [place] [address] Performed By: #### 5 8410-2 #### [facility] CLIA [id number] [address] [place] [address] [place] ALP [Catalytic activity/Vol] 51 U/L Normal 34-123 [facility] Comment on above: Order Comment: Speci men Type: BLOOD SPECIMEN Ordering Facility: [facility] Address: [address] [place] [address] Performed By: #### 5 8410-2 #### [facility] CLIA [id number] [address] [place] [address] [place] ALT [Catalytic activity/Vol] 17 U/L Normal 7-38 [facility] Comment on above: Order Comment: Speci men Type: BLOOD SPECIMEN Ordering Facility: [facility] Address: [address] [place] [address] Performed By: #### 5 8410-2 #### [facility] CLIA [id number] [address] [place] [address] [place] Anion gap [Moles/Vol] 6 mmol/L Low 8-15 [facility] Comment on above: Order Comment: Speci men Type: BLOOD SPECIMEN Ordering Facility: [facility] Address: [address] [place] [address] Performed By: #### 5 8410-2 #### [facility] CLIA [id number] [address] [place] [address] [place] AST [Catalytic activity/Vol] 26 U/L Normal 13-35 [facility] Comment on above: Order Comment: Speci men Type: BLOOD SPECIMEN Ordering Facility: [facility] Address: [address] [place] [address] Performed By: #### 5 8410-2 #### [facility] CLIA [id number] [address] [place] [address] [place] Bilirubin [Mass/Vol] 0.6 mg/dL Normal 0.2-1.3 [facility] Comment on above: Order Comment: Speci men Type: BLOOD SPECIMEN Ordering Facility: [facility] Address: [address] [place] [address] Performed By: #### 5 8410-2 #### [facility] CLIA [id number] [address] [place] [address] [place] Calcium [Mass/Vol] 9.5 mg/dL Normal 8.5-10.2 [facility] Comment on above: Order Comment: Speci men Type: BLOOD SPECIMEN Ordering Facility[facility] Address: [address] [place] [address] Performed By: #### 5 8410-2 #### [facility] CLIA [id number] [address] [place] [address] [place] Chloride [Moles/Vol] 102 mmol/L Normal 98-107 [facility] Comment on above: Order Comment: Speci men Type: BLOOD SPECIMEN [facility]ing [facility] Address: [address] [place] [address] Performed By: #### 5 8410-2 #### [facility] CLIA [id number] [address] [place] [address] [place] CO2 [Moles/Vol] 28 mmol/L Normal 22-30 [facility] Comment on above: Order Comment: Speci men Type: BLOOD SPECIMEN Ordering Facility[facility] Address: [address] [place] [address] Performed By: #### 5 8410-2 #### [facility] CLIA [id number] [address] [place] [address] [place] Creatinine [Mass/Vol] 0.74 mg/dL Normal 0.58-0.96 [facility] Comment on above: Order Comment: Speci men Type: BLOOD SPECIMEN Ordering Facility[facility] Address: [address] [place] [address] Performed By: #### 5 8410-2 #### [facility] CLIA [id number] [address] [place] [address] [place] Creatinine and Glomerular filtration rate.predicted panel (S/P/Bld) 80 mL/min/1.73m??? Normal >=60 [facility] Comment on above: Order Comment: Eliot figueroa Type: BLOOD SPECIMEN Ordering Facility: [facility] Address: [address] [place] [address] Result Comment: Rosy mated Glomerular Filtration Rate (eGFR) is calculated using the 2020 CKD-EPI creatinine equation. This equation utilizes serum creatinine, sex, and age as parameters. The creatinine assay has traceable calibration to isotope dilution-mass spectrometry. Refer to KDIGO guidelines for clinical interpretation. In patients with unstable renal function, e.g. those with acute kidney injury, the eGFR may not accurately reflect actual GFR. Performed By: #### 5 8410-2 #### [facility] CLIA [id number] [address] [place] [address] [place] Glucose [Mass/Vol] 91 mg/dL Normal 74-99 [facility] Comment on above: Order Comment: Eliot figueroa Type: BLOOD SPECIMEN Ordering Facility[facility] Address: [address] [place] [address] Result Comment: The [place] Diabetes Association (ADA) provides guidance for cutoff values for fasting glucose and random glucose. The ADA defines fasting as no caloric intake for at least 8 hours. Fasting plasma glucose results between 100 to 125 mg/dL indicate increased risk for diabetes (prediabetes). Fasting plasma glucose results greater than or equal to 126 mg/dL meet the criteria for diagnosis of diabetes. In the absence of unequivocal hyperglycemia, results should be confirmed by repeat testing. In a patient with classic symptoms of hyperglycemia or hyperglycemic crisis, random plasma glucose results greater than or equal to 200 mg/dL meet the criteria for diagnosis of diabetes. Reference: Standards of Medical Care in Diabetes 2016, [place] Diabetes Association. Diabetes Care. 2016.39(Suppl 1). Performed By: #### 5 8410-2 #### [facility] CLIA [id number] [address] [place] [address] [place] Potassium [Moles/Vol] 4.1 mmol/L Normal 3.7-5.1 [facility] Comment on above: Order Comment: Speci men Type: BLOOD SPECIMEN Ordering Facility[facility] Address: [address] [place] [address] Performed By: #### 5 8410-2 #### [facility] CLIA [id number] [address] [place] [address] [place] Protein [Mass/Vol] 6.5 g/dL Normal 6.3-8.0 [facility] Comment on above: Order Comment: Speci men Type: BLOOD SPECIMEN Ordering Facility[facility] Address: [address] [place] [address] Performed By: #### 5 8410-2 #### [facility] CLIA [id number] [address] [place] [address] [place] Sodium [Moles/Vol] 136 mmol/L Normal 136-144 [facility] Comment on above: Order Comment: Speci men Type: BLOOD SPECIMEN Ordering [facility] Address: [address] [place] [address] Performed By: #### 5 8410-2 #### [facility] CLIA [id number] [address] [place] [address] [place] Urea nitrogen [Mass/Vol] 21 mg/dL Normal 7-21 [facility] Comment on above: Order Comment: Speci men Type: BLOOD SPECIMEN Ordering Facility[facility] Address: [address] [place] [address] Performed By: #### 5 8410-2 #### [facility] CLIA [id number] [address] [place] [address] [place] Reny 11-26-2023 TOMAS Telephone (HEMAWS) [place] MOSQUER[place] ([id number]) 1940 F NFR Date Time Provider Department 11/26/23 SALVATORE CH During your visit today, we recorded the following information about you: Bebe Ritter RN 11/26/2023 8:42 AM Signed PSS - please ask to [place] come in at 1:30 for labwork prior to treatment on (lab will need to be scheduled as well). Thank you Jaclyn Duke 11/26/2023 4:13 PM Signed Spoke with patient and scheduled. Jaclyn Duke Allergies As of Date: 11/26/2023 Noted Allergy Reaction CIPRO (CIPROFLOXACIN) 12/10/2007 6 - Diarrhea FLAGYL (METRONIDAZOLE HCL) 12/10/2007 6 - Diarrhea LIPITOR (ATORVASTATIN) 2019 17 - Myalgia Comments: Myalgia, lethargic Date Reviewed: 10/31/2023 Reviewed by: Thalia Abarca RN - Fully Assessed Reason for Visit: Additional Labs [7522] Prescriptions as of 11/26/2023 - hydroCHLOROthiazide 12.5 mg capsule Take 1 capsule by mouth once daily as needed (vertigo). As needed for vertigo - LORazepam (ATIVAN) 0.5 mg Take 1 tablet by mouth at bedtime as needed (anxiety) for up to 180 days. - rosuvastatin (CRESTOR) 10 mg tablet Take 1 tablet by mouth daily at bedtime. - methotrexate 2.5 mg tablet TAKE 3 TABLETS ONCE WEEKLY - leucovorin (LEUCOVORIN) 5 mg tablet Take one tablet once weekly, 10 to 12 hours after methotrexate administration - meloxicam (MOBIC) 7.5 mg tablet Take 1 tablet by mouth once daily as needed. - levothyroxine (SYNTHROID) 100 mcg tablet TAKE 1 AND 1/2 TABLETS ON SATURDAY AND SATURDAY ONLY, TAKE 1 TABLET REST OF DAYS - oxybutynin (DITROPAN) 5 mg tablet Take 1 tablet by mouth two times a day. - methotrexate 2.5 mg tablet TAKE 3 TABLETS ONCE WEEKLY - aspirin, enteric coated (ASPIRIN, ENTERIC COATED) 81 mg EC tablet Take 1 tablet by mouth two times a day for 28 days. - abatacept (ORENCIA) 250 mg injection Inject 250 mg intravenously once every month. - cholecalciferol (VITAMIN D3) 1,000 unit tab Take 1,000 Units by mouth once daily. Problem List As Of Date 11/26/2023 Noted Resolved Polymyalgia Rheumatica [M35.3] 04/18/2000 06/14/2009 HEMATURIA [599.7] 04/18/2000 Edema [R60.9] 04/18/2000 08/30/2017 Lump or mass in breast [N63.0] 04/18/2000 09/01/2014 Acquired hypothyroidism [E03.9] Venous insufficiency [I87.2] 04/18/2007 History of diverticulitis [Z87.19] 11/13/2007 Allergy to latex [Z91.040] 12/10/2007 10/17/2023 Benign neoplasm of breast [D24.9] 08/30/2017 Disorder of Bone and Cartilage, Unspecified [M8* 06/14/2009 Malignant neoplasm of skin [C44.90] Asymptomatic varicose veins [I83.90] 12/10/2007 09/01/2014 Diffuse cystic mastopathy [N60.19] 04/06/2008 10/17/2023 Digital mucous cyst [M67.449] 11/25/2009 10/17/2023 Dystrophia unguis mediana canaliformis [L60.9] 11/25/2009 10/17/2023 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] 11/25/2009 08/30/2017 Actinic Damage///Sun-Damaged Skin [L57.8] 11/25/2009 09/01/2014 Solar Lentigines [L81.4] 11/25/2009 09/01/2014 Other seborrheic keratosis [L82.1] 11/25/2009 09/01/2014 Postmenopausal atrophic vaginitis [N95.2] 06/06/2010 10/17/2023 Urgency of urination [R39.15] 06/06/2010 10/17/2023 Urge incontinence [N39.41] 06/06/2010 Screening for malignant neoplasm of the cervix *06/06/2010 10/17/2023 Family history of malignant neoplasm of breast *06/06/2010 10/17/2023 Ventral hernia, unspecified, without mention of*03/09/2011 08/30/2017 Encounter for long-term (current) use of medica*05/31/2011 10/17/2023 RA (rheumatoid arthritis) [M06.9] 05/31/2011 09/01/2014 Backache, unspecified [M54.9] 12/03/2011 10/17/2023 Hematuria [R31.9] 06/09/2012 10/17/2023 Fibrocystic breast [N60.19] 07/09/2013 10/17/2023 Thoracic or lumbosacral neuritis or radiculitis*09/16/2013 10/17/2023 Facet hypertrophy of lumbar region [M47.816] 11/03/2013 Lumbar spondylosis [M47.816] 11/03/2013 10/17/2023 Lumbar radiculopathy [M54.16] 11/03/2013 10/17/2023 Lumbar disc displacement without myelopathy [M5*11/03/2013 10/17/2023 Seropositive rheumatoid arthritis (HCC) [M05.9] 10/22/2014 Encounter for long-term current use of medicati*10/22/2014 08/30/2017 Lumbar stenosis [M48.061] 11/17/2014 10/17/2023 Rheumatoid arthritis involving both hands with *03/07/2015 04/25/2015 Chronic pain of right knee [M25.561, G89.29] 06/20/2015 10/17/2023 Status post total left knee replacement [Z96.65*06/20/2015 Abnormality of gait [R26.9] 06/20/2015 08/30/2017 Absolute anemia [D64.9] 07/08/2015 Sciatica [M54.30] 07/08/2015 10/17/2023 Other specified rheumatoid arthritis, multiple *12/22/2015 Anxiety neurosis [F41.1] 12/22/2015 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 Normal [facility] 25(OH)D3 SerPl-mCncon 2023 25-hydroxyvitamin D3 [Mass/Vol] 81.3 ng/mL High 31.0-80.0 [facility] Comment on above: Order Comment: Speci men Type: BLOOD SPECIMEN Order[facility] Facility[facility] Address: [address] [place] [address] Result Comment: Clas sification of 25 OH Vitamin D status: Deficiency/Insufficiency: < or = 30 ng/ml. Sufficiency/Optimal Levels: 31-80 ng/mL Toxicity: > 100 ng/mL. Test performed by chemiluminescent immunoassay. Performed By: #### 1 989-3 #### [facility] CLIA [id number] [address] [place], [place] [address] OF [facility] CNOVon 10-17-2023 CNOV Office Visit (INTMWS ) [place] MOSQU[place] ([id number]) 1940 F NFR Date Time Provider Department 10/17/23 9:00 AM ZANE POTTER INTMWS During your visit today, we recorded the following information about you: Pulse Blood pressure Weight Height 60/minute 156/69 54.4 kg 1.549 m Zane Potter MD 10/17/2023 4:38 PM Signed [place] Marteman is a 83 year old female here for a Medicare wellness visit. Medicare Health Risk Assessment General Health Very good Exercise: Minutes/Day 0 min Exercise: Days/Week 0 days Alcohol: Daily Use 2-3 times a week Alcohol: Drinks/Day 1 or 2 Alcohol: 6 or more drinks Never Feel off balance No Concerns: Teeth/Dentures No Concerns: Sexual function No Troubled by feelings Stressed Frequency: Eating healthy diet Nearly every day ADLs requiring help None of the above Safety precautions in home/vehicle Yes Smoke, vape, chews tobacco No Difficulty hearing No Difficulty seeing No Current Providers Specialists: I have reviewed specialist-related care of the patient in the medical record. Current care team: Patient Care Team: Jerry Arnold MD as PCP - General (Family Medicine) Vern Rico MD (Rheumatology. Shmuel Ferguson MD as Rhinestone Setter (Cardiology- [facility]) Sabina Jefferson MD as (Orthopedics) Luis Alberto Chambers MD (Ophthalmology [facility]). [facility] Medical/Family history review Reviewed and updated problem list, medical/surgical/family /social history, medications, and allergies. Opioid use review Opioid Medications (last 90 days) 08/01/2023 00:00 08/06/2023 08/13/2023 23:59 Opioid Medications hydrocodone/acetaminoph en 1-2 tablet q 6 H PRN ORAL 1-2 tablet q 6 H PRN ORAL-Discontinued tramadol HCl 50 mg q 8 H PRN for pain. ORAL -Rx End Details Outpatient prescription Anxiety/Depression screening PHQ-2 Score: 0 Recommendation: no further intervention at this time Cognitive screening Mini Cog Score: 5 Cognitive screening reviewed and No further action needed (score 3-5). Functional Observation Was the patient's Timed Up AND Go test unsteady or ? 12 seconds? No Advance Care Planning Surrogate decision maker and/or advance care plan documented Measurements BP 156/69 Pulse 60 Ht 5' 1 (1.55m) Wt 120 lb (54.4kg) BMI 22.69 kg/(m2). Vision Screening: Follows with optometry/ophthalmology Right: 20/50 Left: 20/ 50 Both: 20/40 Assessment/Plan Medicare annual wellness visit, subsequent (Z00.00) - Counseled on healthy diet and regular exercise - Fall avoidance information provided - Personalized prevention plan provided - Covid booster recommended. - Pros and cons of colorectal cancer screening were discussed. Cologuard ordered. Zane Potter MD 10/17/2023 4:38 PM Signed This note was created using Maimairiter. Subjective Patient presents with: Medicare Wellness Exam Establish Care [place] Mosquera is a 83 year old female here to establish care from department. 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 She only took this now at bedtime, and we reviewed the risks of lorazepam. She did not recall a diagnosis of hypertension and was on hydrochlorothiazide presumably for Meniere's, started by [facility] years ago for dizziness. Her blood pressure had been labile on review of records. She had a chronic bulge of the right lower abdomen, otherwise asymptomatic. Review of Systems Constitutional: Negative for appetite change, fatigue, fever and unexpected weight change. HENT: Negative for congestion, sneezing and trouble swallowing. Eyes: Negative for visual disturbance. Respiratory: Negative for cough, shortness of breath and wheezing. Cardiovascular: Positive for leg swelling. Negative for chest pain and palpitations. Gastrointestinal: Negative for abdominal pain, constipation, diarrhea, nausea and vomiting. Genitourinary: Positive for urgency. Negative for difficulty urinating, dysuria, hematuria, vaginal bleeding and vaginal discharge. Musculoskeletal: Positive for arthralgias. Negative for back pain, gait problem, joint swelling, myalgias, neck pain and neck stiffness. Skin: Negative for color change. Neurological: Negative for dizziness, syncope, speech difficulty and headaches. Psychiatric/Behavioral: Positive for sleep disturbance. Negative for dysphoric mood. The patient is nervous/anxious. 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 Normal [facility]cium [facility] 024 Calcium [Mass/Vol] 9.7 mg/dL Normal 8.5-10.2 [facility] Comment on above: Order Comment: Speci men Type: BLOOD SPECIMEN [facility] Address: [address] [place] [address] Performed By: #### 1 7861-6, 3016-3 #### [facility] CLIA [id number] [address] [place] [address] [place] [address] [place] THYROID STIMULATING HORMONEo n 10-17-2023 TSH Qn 0.095 m[IU]/L Low [facility] TSH Qnon 10-17-2023 Interpretation and review of laboratory results Abnormal [facility] TSH SerPl-aCncon 10-17-2023 TSH Qn 0.095 m[IU]/L Low 0.270-4.200 [facility] Comment on above: Order Comment: Speci men Type: BLOOD SPECIMEN Order[facility] Address: [address] [place] [address] Performed By: #### 1 7861-6, 3016-3 #### [facility] CLIA [id number] [address] [place] [address] OF [facility] CNOVon 10-15-2023 CNOV Office Visit (MADONNA ) [place] MOSQUER[place] ([id number]) 1940 F NFR Date Time Provider Department 10/15/23 10:40 AM VERN RICO During your visit today, we recorded the following information about you: Temperature Pulse Blood pressure Weight 97.8 degrees 62/minute 138/79 54 kg Height 1.6 m Vern Rico MD 10/15/2023 11:00 AM Signed On 10/15/2023, I had the pleasure of evaluating [place] Mosquera in a follow-up [facility] Rheumatology appointment for seropositive RA. HPI: To review, [place] Mosquera is a 83 year old female - In , written for fosamax weekly - In Dec, diagnosed with seropositive RA. Started on MTX. Confirmatory Hep B surface antigen negative and hep B core ab negative. Discussed with Dr. Beatriz Connors, findings therefore not consistent with hepatitis B infection - In May, started enbrel - In November, enbrel stopped and humira started - In Feb, humira stopped and orencia SC started - In , switched from orencia SC to IV - In Mar, saw Dr. Miller. Reported doing well. Reported less aching with doing GF diet. Due to lymphopenia, advised to reduce MTX dose to 10mg weekly - On 08/19/19, received orencia - In August, reported some increased aching due to the stress of the pandemic, which had actually been leveling off. - In Feb, had reclast infusion. Had 2 days of pain following the infusion - In Feb, had a hip replacement. Surgeon was pounding on the femur and it split. - In Jun, reported feeling pretty good. - In Jun, reported feeling well. No hx of fracture. No jaw pain. Had a tooth extracted 6-7 weeks prior - On 09/14/21, received reclast. Achy for a couple of days - In July, reported doing pretty well. Last flare was about 4 yrs prior - In July, s/p R TKA - Today, reports doing pretty well. - No interim fracture, jaw pain or recent/plans for any invasive dental procedures. - Had orencia IV on 10/03/23 - with lymphoma in remission, but now with metastatic squamous cell PAST MEDICAL HISTORY Diagnosis Date Benign neoplasm of breast bilat Deep vein thrombosis (DVT) (HCC) Disorder of bone and cartilage, unspecified history of osteopenia Diverticulosis of colon (without mention of hemorrhage) Dyslipidemia Edema Hypertension Internal hemorrhoids without mention of complication Other malignant neoplasm of skin, site unspecified 2006 SCC face,clavicle,left leg-Per Polymyalgia rheumatica (HCC) Resolved 2004 Rheumatoid arthritis (HCC) 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 Blaine Duron Unspecified hypothyroidism Urge incontinence 2009 Urgency of urination 2009 Vertigo PAST SURGICAL HISTORY Procedure Laterality Date ANESTH DIAGNOSTIC ARTHROSCOPIC PROC KNEE JOINT right ARTHRP ACETBLR/PROX FEM PROSTC AGRFT/ALGRFT Left 01/02/2016 Hip replacement, total BIOPSY BREAST OPEN INCISIONAL Bx of breast, incisional BREAST BIOPSY CORE 07/13/2006 U/S needle core upper mid right breast CARPAL TUNNEL 09/2010 Dr Tello CHOLECYSTECTOMY lap COLECTOMY PARTIAL W/ANASTOMOSIS 11/2007 Laparoscopic Sigmoid colectomy for diverticulitis COLONOSCOPY FLX DX W/COLLJ SPEC WHEN PFRMD 03/12/2002 Colonoscopy COLONOSCOPY FLX DX W/COLLJ SPEC WHEN PFRMD 01/21/2009 Colonoscopy; Stricture dilated at colectomy site IMPLANT MESH OPN HERNIA RPR/DEBRIDEMENT CLOSURE 04/02/2011 PAST SURGICAL HISTORY OF 10/01/2006 LARISA PROCEDURE DONE ON FACE FOR SQUAMEOUS CELL CA, PAST SURGICAL HISTORY OF 03/2007 Removal of squamous cell carcinoma from clavicle and left leg by PAST SURGICAL HISTORY OF 04/19/2004 excision from R ear PAST SURGICAL HISTORY OF 06/11/2007 cystoscopy/retrograde PAST SURGICAL HISTORY OF 03/2013 titanium plate removed from left thumb PAST SURGICAL HISTORY OF 11/2014 laminectomy PAST SURGICAL HISTORY OF Left 05/16/2015 Total Left Knee PAST SURGICAL HISTORY OF 07/2015 laminectomy PAST SURGICAL HISTORY OF Right 09/16/2018 MOHS procedure, right cheek - [facility] [place] REPAIR FIRST ABDOMINAL WALL HERNIA 04/02/2011 SIGMOIDOSCOPY FLX DX W/COLLJ SPEC BR/WA IF PFRMD 06/01/2010 TOTAL HIP REPLACEMENT Right 02/13/2021 TOTAL KNEE REPLACEMENT Right 07/22/2023 ALLERGIES Allergen Reactions Lipitor [Atorvastat* Myalgia Myalgia, lethargic Adhesive Rash bandaids and tape Antiviral Drugs Diarrhea Cipro [Ciprofloxaci* Diarrhea Flagyl [Metronidazo* Diarrhea Ultram [Tramadol Hc* Other: See Comments When taken with celexa, felt like skin was hot and had heart palpitations MEDICATIONS: Current Outpatient Medications Medication Sig rosuvastatin (CRESTOR) 10 mg tablet Take 1 tablet by mouth daily at bedtime. LORazepam (ATIVAN) 0.5 mg Take 1 tablet by mouth two (more content not included)... Normal [facility] Reny 10-15-2023 DEJANN Telephone (MADONNA) [place] MOSQU[place] ([id number]) 1940 F NFR Date Time Provider Department 10/15/23 VERN RICO During your visit today, we recorded the following information about you: Chelsey Kelly MA 10/15/2023 11:08 AM Signed Patient is due for Reclast and Orencia. Once labs (Vit D + Calcium) return pt will need to be scheduled. Last Infusion was done in [place]. Patient's preference is [place]. RADHA August Melissa 10/21/2023 9:35 AM Signed Please disregard message on Orencia. Patient has two future appointments scheduled. Please review and advise on Reclast orders. Thank you. Nia Perry 10/21/2023 10:17 AM Signed Scheduled reclast same day as orencia on 10/30. Start email sent for reclast Message left for patient to contact office and confirm. Nia Perry 10/21/2023 12:12 PM Signed Patient confirmed Allergies As of Date: 10/15/2023 Noted Allergy Reaction LIPITOR (ATORVASTATIN) 2019 17 - Myalgia Comments: Myalgia, lethargic DELETED: ADHESIVE 03/12/2011 2 - Rash Comments: bandaids and tape DELETED: ANTIVIRAL DRUGS 05/22/2005 6 - Diarrhea CIPRO (CIPROFLOXACIN) 12/10/2007 6 - Diarrhea FLAGYL (METRONIDAZOLE HCL) 12/10/2007 6 - Diarrhea DELETED: ULTRAM (TRAMADOL HCL) 03/07/2015 14 - Other: See Comments Comments: When taken with celexa, felt like skin was hot and had heart palpitations Date Reviewed: 10/15/2023 Reviewed by: Chelsey Kelly MA - Fully Assessed Reason for Visit: Resident Care Technician - Other [0002] Cmt: Reclast+Orencia Prescriptions as of 10/21/2023 - hydroCHLOROthiazide 12.5 mg capsule Take 1 capsule by mouth once daily as needed (vertigo). As needed for vertigo - LORazepam (ATIVAN) 0.5 mg Take 1 tablet by mouth at bedtime as needed (anxiety) for up to 180 days. - rosuvastatin (CRESTOR) 10 mg tablet Take 1 tablet by mouth daily at bedtime. - methotrexate 2.5 mg tablet TAKE 3 TABLETS ONCE WEEKLY - leucovorin (LEUCOVORIN) 5 mg tablet Take one tablet once weekly, 10 to 12 hours after methotrexate administration - meloxicam (MOBIC) 7.5 mg tablet Take 1 tablet by mouth once daily as needed. - levothyroxine (SYNTHROID) 100 mcg tablet TAKE 1 AND 1/2 TABLETS ON SATURDAY AND SATURDAY ONLY, TAKE 1 TABLET REST OF DAYS - oxybutynin (DITROPAN) 5 mg tablet Take 1 tablet by mouth two times a day. - methotrexate 2.5 mg tablet TAKE 3 TABLETS ONCE WEEKLY - aspirin, enteric coated (ASPIRIN, ENTERIC COATED) 81 mg EC tablet Take 1 tablet by mouth two times a day for 28 days. - abatacept (ORENCIA) 250 mg injection Inject 250 mg intravenously once every month. - cholecalciferol (VITAMIN D3) 1,000 unit tab Take 1,000 Units by mouth once daily. Problem List As Of Date 10/15/2023 Noted Resolved Polymyalgia Rheumatica [M35.3] 04/18/2000 06/14/2009 HEMATURIA [599.7] 04/18/2000 Edema [R60.9] 04/18/2000 08/30/2017 Lump or mass in breast [N63.0] 04/18/2000 09/01/2014 Acquired hypothyroidism [E03.9] Venous insufficiency [I87.2] 04/18/2007 History of diverticulitis [Z87.19] 11/13/2007 PERS HX ALLERGY TO LATEX [Z91.040] 12/10/2007 Benign neoplasm of breast [D24.9] 08/30/2017 Disorder of Bone and Cartilage, Unspecified [M8* 06/14/2009 Malignant neoplasm of skin [C44.90] Asymptomatic varicose veins [I83.90] 12/10/2007 09/01/2014 DIFFUS CYSTIC MASTOPATHY [N60.19] 04/06/2008 Digital Mucous Cyst [M67.449] 11/25/2009 Dystrophia Unguis Mediana Canaliformis [L60.9] 11/25/2009 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] 11/25/2009 08/30/2017 Actinic Damage///Sun-Damaged Skin [L57.8] 11/25/2009 09/01/2014 Solar Lentigines [L81.4] 11/25/2009 09/01/2014 Other seborrheic keratosis [L82.1] 11/25/2009 09/01/2014 Postmenopausal atrophic vaginitis [N95.2] 06/06/2010 Urgency of urination [R39.15] 06/06/2010 Urge incontinence [N39.41] 06/06/2010 Screening for malignant neoplasm of the cervix *06/06/2010 Family history of malignant neoplasm of breast *06/06/2010 Ventral hernia, unspecified, without mention of*03/09/2011 08/30/2017 Encounter for long-term (current) use of medica*05/31/2011 RA (rheumatoid arthritis) [M06.9] 05/31/2011 09/01/2014 Backache, unspecified [M54.9] 12/03/2011 Hematuria [R31.9] 06/09/2012 Fibrocystic breast [N60.19] 07/09/2013 Thoracic or lumbosacral neuritis or radiculitis*09/16/2013 Facet hypertrophy of lumbar region [M47.816] 11/03/2013 Lumbar spondylosis [M47.816] 11/03/2013 Lumbar radiculopathy [M54.16] 11/03/2013 Lumbar disc displacement without myelopathy [M5*11/03/2013 Seropositive rheumatoid arthritis (HCC) [M05.9] 10/22/2014 Encounter for long-term current use of medicati*10/22/2014 08/30/2017 Lumbar stenosis [M48.061] 11/17/2014 Rheumatoid arthritis involving both hands with *03/07/2015 04/25/2015 Chronic pain of right knee [M25.561, G89.29] 06/20/2015 Status post total left knee repla (more content not included)... Normal [facility] ALT SerPl-cCncon 10-10-2023 ALT [Catalytic activity/Vol] 16 U/L Normal 7-38 [facility] Comment on above: Order Comment: Speci men Type: BLOOD SPECIMENOrdering Facility: [facility] Address: [address] [place] [address] Performed By: #### C RET1, 1742-6, 1920-8 ####[facility] [id number] [place] [address] [place] AST SerPl-cCncon 10-10-2023 AST [Catalytic activity/Vol] 28 U/L Normal 13-35 [facility] Comment on above: Order Comment: Speci men Type: BLOOD SPECIMENOrdering Facility: [facility] Address: [address] [place] [address] Performed By: #### C RET1, 1742-6, 1920-8 ####[facility] [id number] [place] [address] [place] CBC panel Auto (Bld)on 10-09 Erythrocyte distribution width (RBC) [Ratio] 14.0 % Normal 11.5-15.0 [facility] Comment on above: Order Comment: Speci men Type: BLOOD SPECIMEN [facility] Address: [address] [place] [address] Performed By: #### 5 8410-2 #### [facility] CLIA [id number] [address] [place] [address] [place] Hematocrit (Bld) [Volume fraction] 36.1 % Normal 36.0-46.0 [facility] Comment on above: Order Comment: Speci men Type: BLOOD SPECIMEN [facility] Address: [address] [place] [address] Performed By: #### 5 8410-2 #### [facility] CLIA [id number] [address] [place] [address] [place] Hemoglobin (Bld) [Mass/Vol] 12.1 g/dL Normal 11.5-15.5 [facility] Comment on above: Order Comment: Speci men Type: BLOOD SPECIMEN [facility] Address: [address] [place] [address] Performed By: #### 5 8410-2 #### [facility] CLIA [id number] [address] [place] [address] [place] MCH (RBC) [Entitic mass] 31.8 pg Normal 26.0-34.0 [facility] Comment on above: Order Comment: Speci men Type: BLOOD SPECIMEN [facility] Address: [address] [place] [address] Performed By: #### 5 8410-2 #### [facility] CLIA [id number] [address] [place] [address] [place] MCHC (RBC) [Mass/Vol] 33.5 g/dL Normal 30.5-36.0 [facility] Comment on above: Order Comment: Speci men Type: BLOOD SPECIMEN [facility] Address: [address] [place] [address] Performed By: #### 5 8410-2 #### [facility] CLIA [id number] [address] [place] [address] [place] MCV (RBC) [Entitic vol] 94.8 fL Normal 80.0-100.0 [facility] Comment on above: Order Comment: Speci men Type: BLOOD SPECIMEN [facility] Address: [address] [place] [address] Performed By: #### 5 8410-2 #### [facility] CLIA [id number] [address] [place] [address] [place] Nucleated RBC (Bld) [#/Vol] 10*3/uL Normal <0.01 [facility] Comment on above: Order Comment: Speci men Type: BLOOD SPECIMEN [facility] Address: [address] [place] [address] Performed By: #### 5 8410-2 #### [facility] CLIA [id number] [address] [place] [address] [place] Platelet mean volume (Bld) [Entitic vol] 9.3 fL Normal 9.0-12.7 [facility] Comment on above: Order Comment: Speci men Type: BLOOD SPECIMEN [facility] Address: [address] [place] [address] Performed By: #### 5 8410-2 #### [facility] CLIA [id number] [address] [place] [address] [place] Platelets (Bld) [#/Vol] 211 10*3/uL Normal 150-400 [facility] Comment on above: Order Comment: Speci men Type: BLOOD SPECIMEN [facility] Address: [address] [place] [address] Performed By: #### 5 8410-2 #### [facility] CLIA [id number] [address] [place] [address] [place] RBC (Bld) [#/Vol] 3.81 10*6/uL Low 3.90-5.20 [facility] Comment on above: Order Comment: Speci men Type: BLOOD SPECIMEN [facility] Address: [address] [place] [address] Performed By: #### 5 8410-2 #### [facility] CLIA [id number] [address] [place] [address] [place] WBC (Bld) [#/Vol] 6.51 10*3/uL Normal 3.70-11.00 [facility] Comment on above: Order Comment: Speci men Type: BLOOD SPECIMEN [facility] Address: [address] [place] [address] Performed By: #### 5 8410-2 #### [facility] CLIA [id number] [address] [place] [address] [place] CREATININE BLDon 10-10-2023 Creatinine [Mass/Vol] 0.77 mg/dL Normal 0.58-0.96 [facility] Comment on above: Order Comment: Speci men Type: BLOOD SPECIMENOrdering Facility: [facility] Address: [address] [place] [address] Performed By: #### C RET1, 1741-10, 1919-12 ####[facility] [id number] [place] [address] [place] Creatinine and Glomerular filtration rate.predicted panel (S/P/Bld) 77 mL/min/1.73m??? Normal >=60 [facility] Comment on above: Order Comment: Speci men Type: BLOOD SPECIMENOrdering Facility: [facility] Address: [address] [place] [address] Result Comment: Rosy mated Glomerular Filtration Rate (eGFR) is calculated using the 2020 CKD-EPI creatinine equation. This equation utilizes serum creatinine, sex, and age as parameters. The creatinine assay has traceable calibration to isotope dilution-mass spectrometry. Refer to KDIGO guidelines for clinical interpretation. In patients with unstable renal function, e.g. those with acute kidney injury, the eGFR may not accurately reflect actual GFR. Performed By: #### C RET1, 1741-10, 1919-12 ####[facility] [id number] [place] [address] [place] ALT SerPl-cCncon 10-03-2023 ALT [Catalytic activity/Vol] 15 U/L Normal 7-38 [facility] Comment on above: Order Comment: Speci men Type: BLOOD SPECIMENOrdering Facility: [facility] Address: [address] [place] [address] Performed By: #### C RET1, 1919-12, 1741-10 ####[facility] [id number] [place] [address] [place] AST SerPl-cCncon 10-03-2023 AST [Catalytic activity/Vol] 26 U/L Normal 13-35 [facility] Comment on above: Order Comment: Speci men Type: BLOOD SPECIMENOrdering Facility: [facility] Address: [address] [place] [address] Performed By: #### C RET1, 1919-12, 1741-10 ####[facility] [id number] [place] [address] [place] CREATININE BLDon 10-03-2023 Creatinine [Mass/Vol] 0.77 mg/dL Normal 0.58-0.96 [facility] Comment on above: Order Comment: Speci men Type: BLOOD SPECIMENOrdering Facility: [facility] Address: [address] [place] [address] Performed By: #### C RET1, 1919-12, 1741-10 ####[facility] [id number] [address] Creatinine and Glomerular filtration rate.predicted panel (S/P/Bld) 77 mL/min/1.73m??? Normal >=60 [facility] Comment on above: Order Comment: Speci men Type: BLOOD SPECIMENOrdering Facility: [facility] Address: [address] [place] [address] Result Comment: Rosy mated Glomerular Filtration Rate (eGFR) is calculated using the 2020 CKD-EPI creatinine equation. This equation utilizes serum creatinine, sex, and age as parameters. The creatinine assay has traceable calibration to isotope dilution-mass spectrometry. Refer to KDIGO guidelines for clinical interpretation. In patients with unstable renal function, e.g. those with acute kidney injury, the eGFR may not accurately reflect actual GFR. Performed By: #### C RET1, 1919-12, 1741-10 ####[facility] [id number] [place], [place] [id number] [place] [address] [place] CNCOon 10-02-2023 [facility] HNO ID: [id number] Author: COORDINATOR, CYNDI, ? Service: ? Author Type: Physician Type: Letter Filed: 10/02/2023 12:34 Note Text: October 02, 2023 PID: [id number] [place] Mosquera [address] [place] [address] Dear Ms. Mosquera, We are pleased to inform you that the results of your recent breast imaging exam on 10/02/2023 are normal. Your mammogram demonstrates that you have dense breast tissue, which could hide abnormalities. Dense breast tissue, in and of itself, is a relatively common condition. Therefore, this information is not provided to cause undue concern; rather, it is to raise your awareness and promote discussion with your health care provider regarding the presence of dense breast tissue in addition to other risk factors. Early detection of cancer is very important. We also understand recommendations regarding breast cancer screening are controversial. Please discuss with your primary care provider which strategy is best for you and whether a mammogram is right for you. Your imaging studies and report will be kept on file at [facility] as part of your permanent medical record and are available for your continuing care. Thank you for allowing us to help in meeting your health care needs. Sincerely, Dr. Melendez Interpreting Radiologist [facility] (Normal over 40) Normal [facility] SCREENINGon 10-02-2023 [facility] SCREENING * * *Final Report* * * DATE OF EXAM: Oct 02 2023 9:20AM [facility] 0581 - [facility] SCREENING / PROCEDURE REASON: Encounter for screening mammogram for malignant neoplasm of breast * * * * Physician Interpretation * * * * RESULT: #[id number] - [facility] SCREENING BILATERAL DIGITAL SCREENING MAMMOGRAM WITH CAD: 10/02/2023 HISTORY: Encounter For Screening Mammogram For Malignant Neoplasm Of Breast / Screening Mammogram-Patient reports NO symptoms. /priors available for comparison. RESULT: TECHNIQUE: The study was acquired using full field digital technology and interpreted from soft copy. Current study was also evaluated with a Computer Aided Detection (CAD). Comparison is made to exams dated: 10/01/2022 mammogram, 09/29/2021 mammogram, 09/27/2020 mammogram, 09/11/2019 mammogram - [facility], and 09/11/2018 mammogram - [facility]. The breasts are heterogeneously dense, which may obscure small masses. No significant masses, calcifications, or other findings are seen in either breast. There has been no significant interval change. IMPRESSION: NEGATIVE There is no mammographic evidence of malignancy. A 1 year screening mammogram is recommended. Jane Melendez M.D., jr/penrad:10/02/2023 12:34:20 [employer] Swage Operator(s): RT Lesli(Lamine)(Lisa), [facility] letter sent: Normal over 40 Mammogram BI-RADS: 1 Negative Multiple national specialty organizations have released breast cancer screening guidelines for women at average risk for developing breast cancer - guidelines that are based on both evidence and opinion, yet differ on when to start and how often to screen for breast cancer. With representation from Breast Imaging, Internal Medicine, Women's Health, Family Medicine, and Medical/Surgical Oncology, the [facility] has carefully reviewed the data and reached the following consensus: 1) All women should engage in shared decision-making with their providers to decide when to start and how often to screen; 2) All women should have the opportunity to start screening mammography at age 40; 3) For women ages 45-55, we recommend annual screening mammograms; 4) For women ages 55 and over, we support both the transition from an annual to a biennial interval if this aligns more with patient's values and preferences, or continuation with annual screening; 5) All women should discuss with their providers when to stop screening mammograms. Auto Winder: Shiraz Transcribe Date/Time: Oct 02 2023 9:03A Dictated by: JANE MELENDEZ MD This examination was interpreted and the report reviewed and electronically signed by: JANE MELENDEZ MD on Oct 02 2023 12:34PM EST [id number] Normal [facility] Breast Screeningon 2023 IMPRESSION: NEGATIVE There is no mammographic evidence of malignancy. A 1 year screening mammogram is recommended. Jane Melendez M.D., jr/shiraz:10/02/2023 12:34:20 [employer] Swage Operator(s): RT Lesli(Lamine)(M), [facility] letter sent: Normal over 40 Mammogram BI-RADS: 1 Negative Multiple national specialty organizations have released breast cancer screening guidelines for women at average risk for developing breast cancer - guidelines that are based on both evidence and opinion, yet differ on when to start and how often to screen for breast cancer. With representation from Breast Imaging, Internal Medicine, Women's Health, Family Medicine, and Medical/Surgical Oncology, the [facility] has carefully reviewed the data and reached the following consensus: 1) All women should engage in shared decision-making with their providers to decide when to start and how often to screen; 2) All women should have the opportunity to start screening mammography at age 40; 3) For women ages 45-55, we recommend annual screening mammograms; 4) For women ages 55 and over, we support both the transition from an annual to a biennial interval if this aligns more with patient's values and preferences, or continuation with annual screening; 5) All women should discuss with their providers when to stop screening mammograms. Auto Winder: Shiraz Transcribe Date/Time: Oct 02 2023 9:03A Dictated by: JANE MELENDEZ MD This examination was interpreted and the report reviewed and electronically signed by: JANE MELENDEZ MD on Oct 02 2023 12:34PM [facility] DIVISION OF RADIOLOGY * * *Final Report* * * DATE OF EXAM: Oct 02 2023 9:20AM [facility] 0581 - [facility] SCREENING / PROCEDURE REASON: Encounter for screening mammogram for malignant neoplasm of breast * * * * Physician Interpretation * * * * RESULT: #[id number] - [facility] SCREENING BILATERAL DIGITAL SCREENING MAMMOGRAM WITH CAD: 10/02/2023 HISTORY: Encounter For Screening Mammogram For Malignant Neoplasm Of Breast / Screening Mammogram-Patient reports NO symptoms. /priors available for comparison. RESULT: TECHNIQUE: The study was acquired using full field digital technology and interpreted from soft copy. Current study was also evaluated with a Computer Aided Detection (CAD). Comparison is made to exams dated: 10/01/2022 mammogram, 09/29/2021 mammogram, 09/27/2020 mammogram, 09/11/2019 mammogram - [facility], and 09/11/2018 mammogram - [facility]. The breasts are heterogeneously dense, which may obscure small masses. No significant masses, calcifications, or other findings are seen in either breast. There has been no significant interval change. DIVISION OF RADIOLOGY [facility]02/[facility]23 * * *Final Report* * * DATE OF EXAM: Oct 02 2023 9:20AM [facility] 0581 - [facility] SCREENING / PROCEDURE REASON: Encounter for screening mammogram for malignant neoplasm of breast * * * * Physician Interpretation * * * * RESULT: #[id number] - [facility] SCREENING BILATERAL DIGITAL SCREENING MAMMOGRAM WITH CAD: 10/02/2023 HISTORY: Encounter For Screening Mammogram For Malignant Neoplasm Of Breast / Screening Mammogram-Patient reports NO symptoms. /priors available for comparison. RESULT: TECHNIQUE: The study was acquired using full field digital technology and interpreted from soft copy. Current study was also evaluated with a Computer Aided Detection (CAD). Comparison is made to exams dated: 10/01/2022 mammogram, 09/29/2021 mammogram, 09/27/2020 mammogram, 09/11/2019 mammogram - [facility], and 09/11/2018 mammogram - [facility]. The breasts are heterogeneously dense, which may obscure small masses. No significant masses, calcifications, or other findings are seen in either breast. There has been no significant interval change. IMPRESSION IMPRESSION: NEGATIVE There is no mammographic evidence of malignancy. A 1 year screening mammogram is recommended. Jane Melendez M.D., jr/shiraz:10/02/2023 12:34:20 [employer]hot Swage Operator(s): RT Lesli(R)(M), [facility] letter sent: Normal over 40 Mammogram BI-RADS: 1 Negative Multiple national specialty organizations have released breast cancer screening guidelines for women at average risk for developing breast cancer - guidelines that are based on both evidence and opinion, yet differ on when to start and how often to screen for breast cancer. With representation from Breast Imaging, Internal Medicine, Women's Health, Family Medicine, and Medical/Surgical Oncology, the [facility] has carefully reviewed the data and reached the following consensus: 1) All women should engage in shared decision-making with their providers to decide when to start and how often to screen; 2) All women should have the opportunity to start screening mammography at age 40; 3) For women ages 45-55, we recommend annual screening mammograms; 4) For women ages 55 and over, we support both the transition from an annual to a biennial interval if this aligns more with patient's values and preferences, or continuation with annual screening; 5) All women should discuss with their providers when to stop screening mammograms. Auto Winder: Shiraz Transcribe Date/Time: Oct 02 2023 9:03A Dictated by: JANE MELENDEZ MD This examination was interpreted and the report reviewed and electronically signed by: JANE MELENDEZ MD on Oct 02 2023 12:34PM EST [facility] Radiology Study observation (narrative) [facility] MG Breast ScreeningOrdered B y: [facility] Provider on 10-02-2023 [facility] CNOVon 09-17-2023 CNOV Office Visit (ORMDNA ) [place] MOSQUERA ([id number]) 1940 F NFR Date Time Provider Department 09/17/23 2:40 PM SABINA JEFFERSON During your visit today, we recorded the following information about you: Sabina Jefferson MD 09/17/2023 3:00 PM Signed Post-op Office Visit [place] Mosquera 83 year old September 17, 2023 3:00 PM History: [place] Mosquera Is now s/p RIGHT TKA. Post-operative course has been without complication. Subjective: Patient reports minimal pain. Overall is doing well. weaning ambulatory aid offf opioid pain medication Objective: Ambulates with minimal limp Incision well-approximated, no drainage, normal alexandra-incisional erythema ROM 0 - 120 Distally DP/PT palpable Distally S/S/SP/DP/T intact at baseline Distally DF/EHL/PF intact at baseline Negative destinee/calf tenderness Xrays: No new today Assessment and Plan: [place] Mosquera Is here for a second post-op appointment, overall doing well -continued ice, rest, and use of non-narcotic analgesia as needed -discussed home exercises -WBAT on operative extremity -continue ankle pumps and dvt ppx through 4 weeks -will see back at 1 year post-op for repeat exam and xrays--can see sooner if needed -discussed red flag symptoms of acutely increasing pain, new erythema, new swelling, drainage, shortness of breath Sabina Jefferson MD Orthopaedic Surgery Allergies As of Date: 09/17/2023 Noted Allergy Reaction LIPITOR (ATORVASTATIN) 2019 17 - Myalgia Comments: Myalgia, lethargic ADHESIVE 03/12/2011 2 - Rash Comments: bandaids and tape ANTIVIRAL DRUGS 05/22/2005 6 - Diarrhea CIPRO (CIPROFLOXACIN) 12/10/2007 6 - Diarrhea FLAGYL (METRONIDAZOLE HCL) 12/10/2007 6 - Diarrhea ULTRAM (TRAMADOL HCL) 03/07/2015 14 - Other: See Comments Comments: When taken with celexa, felt like skin was hot and had heart palpitations Date Reviewed: 09/17/2023 Reviewed by: Sabina Jefferson MD - Fully Assessed Reason for Visit: Post Op [174] Knee Replacement [363] Primary Visit Diagnosis:Status post right knee replacement [Z96.651] Prescriptions as of 09/17/2023 - LORazepam (ATIVAN) 0.5 mg Take 1 tablet by mouth two times a day as needed (anxiety) for up to 90 days. - methotrexate 2.5 mg tablet TAKE 3 TABLETS ONCE WEEKLY - leucovorin (LEUCOVORIN) 5 mg tablet Take one tablet once weekly, 10 to 12 hours after methotrexate administration - meloxicam (MOBIC) 7.5 mg tablet Take 1 tablet by mouth once daily as needed. - levothyroxine (SYNTHROID) 100 mcg tablet TAKE 1 AND 1/2 TABLETS ON SATURDAY AND SATURDAY ONLY, TAKE 1 TABLET REST OF DAYS - oxybutynin (DITROPAN) 5 mg tablet Take 1 tablet by mouth two times a day. - methotrexate 2.5 mg tablet TAKE 3 TABLETS ONCE WEEKLY - acetaminophen (TYLENOL) 500 mg tablet Take 1,000 mg by mouth every 8 hours as needed for pain. - aspirin, enteric coated (ASPIRIN, ENTERIC COATED) 81 mg EC tablet Take 1 tablet by mouth two times a day for 28 days. - ascorbic acid, vitamin C, (VITAMIN C) 500 mg tablet Take 1 tablet by mouth two times a day with meals for 27 doses. - pantoprazole DR (PROTONIX) 20 mg tablet Take 1 tablet by mouth every morning for 14 days. - hydroCHLOROthiazide 12.5 mg capsule Take 1 capsule by mouth once daily as needed (vertigo). As needed for vertigo - abatacept (ORENCIA) 250 mg injection Inject 250 mg intravenously once every month. - rosuvastatin (CRESTOR) 10 mg tablet TAKE 1 TABLET AT BEDTIME - multivitamin tablet Take 1 tablet by mouth once daily. - cholecalciferol (VITAMIN D3) 1,000 unit tab Take 1,000 Units by mouth once daily. Problem List As Of Date 09/17/2023 Noted Resolved Polymyalgia Rheumatica [M35.3] 04/18/2000 06/14/2009 HEMATURIA [599.7] 04/18/2000 Edema [R60.9] 04/18/2000 08/30/2017 Lump or mass in breast [N63.0] 04/18/2000 09/01/2014 Acquired hypothyroidism [E03.9] Venous insufficiency [I87.2] 04/18/2007 History of diverticulitis [Z87.19] 11/13/2007 PERS HX ALLERGY TO LATEX [Z91.040] 12/10/2007 Benign neoplasm of breast [D24.9] 08/30/2017 Disorder of Bone and Cartilage, Unspecified [M8* 06/14/2009 Malignant neoplasm of skin [C44.90] Asymptomatic varicose veins [I83.90] 12/10/2007 09/01/2014 DIFFUS CYSTIC MASTOPATHY [N60.19] 04/06/2008 Digital Mucous Cyst [M67.449] 11/25/2009 Dystrophia Unguis Mediana Canaliformis [L60.9] 11/25/2009 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 Normal [facility] CNTHERAPYon 09-17-2023 CNTHERAPY OT/PT/Speech Visit (PTWS) [place] ([id number]) 1940 F NFR Date Time Provider Department 09/17/23 10:30 AM GEOFFREY DANIEL PTWS Date Time Provider Department Center 09/17/2023 10:30 AM [id number], COLIN PTWS Anjum Alexandra Reason for Visit: PT Discharge [752] Primary Visit Diagnosis:Primary osteoarthritis of right knee [M17.11] Allergies As of Date: 09/17/2023 Noted Allergy Reaction LIPITOR (ATORVASTATIN) 2019 17 - Myalgia Comments: Myalgia, lethargic ADHESIVE 03/12/2011 2 - Rash Comments: bandaids and tape ANTIVIRAL DRUGS 05/22/2005 6 - Diarrhea CIPRO (CIPROFLOXACIN) 12/10/2007 6 - Diarrhea FLAGYL (METRONIDAZOLE HCL) 12/10/2007 6 - Diarrhea ULTRAM (TRAMADOL HCL) 03/07/2015 14 - Other: See Comments Comments: When taken with celexa, felt like skin was hot and had heart palpitations Date Reviewed: 09/05/2023 Reviewed by: Jaclyn Dial, RN - Fully Assessed Prescriptions as of 09/17/2023 - LORazepam (ATIVAN) 0.5 mg Take 1 tablet by mouth two times a day as needed (anxiety) for up to 90 days. - methotrexate 2.5 mg tablet TAKE 3 TABLETS ONCE WEEKLY - leucovorin (LEUCOVORIN) 5 mg tablet Take one tablet once weekly, 10 to 12 hours after methotrexate administration - meloxicam (MOBIC) 7.5 mg tablet Take 1 tablet by mouth once daily as needed. - levothyroxine (SYNTHROID) 100 mcg tablet TAKE 1 AND 1/2 TABLETS ON SATURDAY AND SATURDAY ONLY, TAKE 1 TABLET REST OF DAYS - oxybutynin (DITROPAN) 5 mg tablet Take 1 tablet by mouth two times a day. - methotrexate 2.5 mg tablet TAKE 3 TABLETS ONCE WEEKLY - acetaminophen (TYLENOL) 500 mg tablet Take 1,000 mg by mouth every 8 hours as needed for pain. - aspirin, enteric coated (ASPIRIN, ENTERIC COATED) 81 mg EC tablet Take 1 tablet by mouth two times a day for 28 days. - ascorbic acid, vitamin C, (VITAMIN C) 500 mg tablet Take 1 tablet by mouth two times a day with meals for 27 doses. - pantoprazole DR (PROTONIX) 20 mg tablet Take 1 tablet by mouth every morning for 14 days. - hydroCHLOROthiazide 12.5 mg capsule Take 1 capsule by mouth once daily as needed (vertigo). As needed for vertigo - abatacept (ORENCIA) 250 mg injection Inject 250 mg intravenously once every month. - rosuvastatin (CRESTOR) 10 mg tablet TAKE 1 TABLET AT BEDTIME - multivitamin tablet Take 1 tablet by mouth once daily. - cholecalciferol (VITAMIN D3) 1,000 unit tab Take 1,000 Units by mouth once daily. Sign Designer: Therapy (PT/OT/Speech/Resp) ID: [id number] 09/17/2023 10:51 AM Author: GEOFFREY DANIEL Signed by GEOFFREY DANIEL PT on 09/17/2023 at 10:51 AM Document text: Program_ID:[id number] Access Code: [email or web address] URL: [email or web address] Date: 09-17-2023 Prepared By: Geoffrey Daniel Program Notes Total Knee Replacement - Day 1 OP PT. Exercises - Supine Heel Slide with Strap - 2 x daily - 7 x weekly - 2-3 sets - 10-20 reps - Knee Flexion Step - 2 x daily - 7 x weekly - 2 sets - 10 reps - Active Straight Leg Raise with Quad Set - 2 x daily - 5-6 x weekly - 2 sets - 8-10 reps - Standing Hip Abduction with Counter Support - 2 x daily - 5-6 x weekly - 2-3 sets - 8-12 reps - Sit to Stand - 2 x daily - 5-6 x weekly - 2 sets - 8-10 reps - Step Up - 2 x daily - 5-6 x weekly - 2 sets - 10-15 reps - Lateral Step Up - 2 x daily - 5-6 x weekly - 2 sets - 10-15 reps - Side Stepping with Resistance at Thighs - 2 x daily - 5-6 x weekly - 2 sets - reps - Wall Quarter Squat - 2 x daily - 5-6 x weekly - 2-3 sets - 10 reps Normal [facility] THERAPY NTon 09-17-2023 THERAPY NT HNO ID: [id number] Author: GEOFFREY DANIEL, PT Service: ? Author Type: Physical Therapist Type: Therapy (PT/OT/Speech/Resp) Filed: 09/17/2023 10:51 Note Text: Program_ID:[id number] Access Code: [email or web address] URL: [email or web address] Date: 09-17-2023 Prepared By: Geoffrey Daniel Program Notes Total Knee Replacement - Day 1 OP PT. Exercises - Supine Heel Slide with Strap - 2 x daily - 7 x weekly - 2-3 sets - 10-20 reps - Knee Flexion Step - 2 x daily - 7 x weekly - 2 sets - 10 reps - Active Straight Leg Raise with Quad Set - 2 x daily - 5-6 x weekly - 2 sets - 8-10 reps - Standing Hip Abduction with Counter Support - 2 x daily - 5-6 x weekly - 2-3 sets - 8-12 reps - Sit to Stand - 2 x daily - 5-6 x weekly - 2 sets - 8-10 reps - Step Up - 2 x daily - 5-6 x weekly - 2 sets - 10-15 reps - Lateral Step Up - 2 x daily - 5-6 x weekly - 2 sets - 10-15 reps - Side Stepping with Resistance at Thighs - 2 x daily - 5-6 x weekly - 2 sets - reps - Wall Quarter Squat - 2 x daily - 5-6 x weekly - 2-3 sets - 10 reps Normal [facility] CNTHERAPYon 09-13-2023 CNTHERAPY OT/PT/Speech Visit (PTWS) [place] ([id number]) 1940 F NFR Date Time Provider Department 09/13/23 1:45 PM GEOFFREY DANIEL PTWS Date Time Provider Department Center 09/13/2023 1:45 PM [id number], COLIN PTWS Anjum Alexandra Reason for Visit: Physical Therapy [503] Visit Diagnosis:Primary osteoarthritis of right knee [M17.11] Allergies As of Date: 09/13/2023 Noted Allergy Reaction LIPITOR (ATORVASTATIN) 2019 17 - Myalgia Comments: Myalgia, lethargic ADHESIVE 03/12/2011 2 - Rash Comments: bandaids and tape ANTIVIRAL DRUGS 05/22/2005 6 - Diarrhea CIPRO (CIPROFLOXACIN) 12/10/2007 6 - Diarrhea FLAGYL (METRONIDAZOLE HCL) 12/10/2007 6 - Diarrhea ULTRAM (TRAMADOL HCL) 03/07/2015 14 - Other: See Comments Comments: When taken with celexa, felt like skin was hot and had heart palpitations Date Reviewed: 09/05/2023 Reviewed by: Jaclyn Dial, RN - Fully Assessed Prescriptions as of 09/13/2023 - LORazepam (ATIVAN) 0.5 mg Take 1 tablet by mouth two times a day as needed (anxiety) for up to 90 days. - methotrexate 2.5 mg tablet TAKE 3 TABLETS ONCE WEEKLY - leucovorin (LEUCOVORIN) 5 mg tablet Take one tablet once weekly, 10 to 12 hours after methotrexate administration - meloxicam (MOBIC) 7.5 mg tablet Take 1 tablet by mouth once daily as needed. - levothyroxine (SYNTHROID) 100 mcg tablet TAKE 1 AND 1/2 TABLETS ON SATURDAY AND SATURDAY ONLY, TAKE 1 TABLET REST OF DAYS - oxybutynin (DITROPAN) 5 mg tablet Take 1 tablet by mouth two times a day. - methotrexate 2.5 mg tablet TAKE 3 TABLETS ONCE WEEKLY - acetaminophen (TYLENOL) 500 mg tablet Take 1,000 mg by mouth every 8 hours as needed for pain. - aspirin, enteric coated (ASPIRIN, ENTERIC COATED) 81 mg EC tablet Take 1 tablet by mouth two times a day for 28 days. - ascorbic acid, vitamin C, (VITAMIN C) 500 mg tablet Take 1 tablet by mouth two times a day with meals for 27 doses. - pantoprazole DR (PROTONIX) 20 mg tablet Take 1 tablet by mouth every morning for 14 days. - hydroCHLOROthiazide 12.5 mg capsule Take 1 capsule by mouth once daily as needed (vertigo). As needed for vertigo - abatacept (ORENCIA) 250 mg injection Inject 250 mg intravenously once every month. - rosuvastatin (CRESTOR) 10 mg tablet TAKE 1 TABLET AT BEDTIME - multivitamin tablet Take 1 tablet by mouth once daily. - cholecalciferol (VITAMIN D3) 1,000 unit tab Take 1,000 Units by mouth once daily. Normal [facility] CNTHERAPYon 09-05-2023 CNTHERAPY OT/PT/Speech Visit (PTWS) [place] ([id number]) 1940 F NFR Date Time Provider Department 09/05/23 3:30 PM GEOFFREY DANIEL PTWS Date Time Provider Department Center 09/05/2023 3:30 PM [id number], COLIN PTWS Anjum Alexandra Reason for Visit: Physical Therapy [503] Primary Visit Diagnosis:Primary osteoarthritis of right knee [M17.11] Allergies As of Date: 09/05/2023 Noted Allergy Reaction LIPITOR (ATORVASTATIN) 2019 17 - Myalgia Comments: Myalgia, lethargic ADHESIVE 03/12/2011 2 - Rash Comments: bandaids and tape ANTIVIRAL DRUGS 05/22/2005 6 - Diarrhea CIPRO (CIPROFLOXACIN) 12/10/2007 6 - Diarrhea FLAGYL (METRONIDAZOLE HCL) 12/10/2007 6 - Diarrhea ULTRAM (TRAMADOL HCL) 03/07/2015 14 - Other: See Comments Comments: When taken with celexa, felt like skin was hot and had heart palpitations Date Reviewed: 09/05/2023 Reviewed by: Jaclyn Dial RN - Fully Assessed Prescriptions as of 09/05/2023 - LORazepam (ATIVAN) 0.5 mg Take 1 tablet by mouth two times a day as needed (anxiety) for up to 90 days. - methotrexate 2.5 mg tablet TAKE 3 TABLETS ONCE WEEKLY - leucovorin (LEUCOVORIN) 5 mg tablet Take one tablet once weekly, 10 to 12 hours after methotrexate administration - meloxicam (MOBIC) 7.5 mg tablet Take 1 tablet by mouth once daily as needed. - levothyroxine (SYNTHROID) 100 mcg tablet TAKE 1 AND 1/2 TABLETS ON SATURDAY AND SATURDAY ONLY, TAKE 1 TABLET REST OF DAYS - oxybutynin (DITROPAN) 5 mg tablet Take 1 tablet by mouth two times a day. - methotrexate 2.5 mg tablet TAKE 3 TABLETS ONCE WEEKLY - acetaminophen (TYLENOL) 500 mg tablet Take 1,000 mg by mouth every 8 hours as needed for pain. - aspirin, enteric coated (ASPIRIN, ENTERIC COATED) 81 mg EC tablet Take 1 tablet by mouth two times a day for 28 days. - ascorbic acid, vitamin C, (VITAMIN C) 500 mg tablet Take 1 tablet by mouth two times a day with meals for 27 doses. - pantoprazole DR (PROTONIX) 20 mg tablet Take 1 tablet by mouth every morning for 14 days. - hydroCHLOROthiazide 12.5 mg capsule Take 1 capsule by mouth once daily as needed (vertigo). As needed for vertigo - abatacept (ORENCIA) 250 mg injection Inject 250 mg intravenously once every month. - rosuvastatin (CRESTOR) 10 mg tablet TAKE 1 TABLET AT BEDTIME - multivitamin tablet Take 1 tablet by mouth once daily. - cholecalciferol (VITAMIN D3) 1,000 unit tab Take 1,000 Units by mouth once daily. Facility-Administered Medications as of 09/05/2023 - NaCl 0.9% iv infusion - diphenhydrAMINE 50 mg injection (BENADRYL) - hydrocortisone sodium succinate (PF) 100 mg injection (Solu-CORTEF) - EPINEPHrine HCl (PF) 1 mg/mL (1 mL) 0.3 mg injection Normal [facility] CNTHERAPYon 08-30-2023 CNTHERAPY OT/PT/Speech Visit (PTWS) [place] ([id number]) 1940 F NFR Date Time Provider Department 08/30/23 8:30 AM GEOFFREY DANIEL PTWS Date Time Provider Department Center 08/30/2023 8:30 AM [id number], COLIN PTFLACO Alexandra Reason for Visit: Physical Therapy [503] Primary Visit Diagnosis:Primary osteoarthritis of right knee [M17.11] Allergies As of Date: 08/30/2023 Noted Allergy Reaction LIPITOR (ATORVASTATIN) 2019 17 - Myalgia Comments: Myalgia, lethargic ADHESIVE 03/12/2011 2 - Rash Comments: bandaids and tape ANTIVIRAL DRUGS 05/22/2005 6 - Diarrhea CIPRO (CIPROFLOXACIN) 12/10/2007 6 - Diarrhea FLAGYL (METRONIDAZOLE HCL) 12/10/2007 6 - Diarrhea ULTRAM (TRAMADOL HCL) 03/07/2015 14 - Other: See Comments Comments: When taken with celexa, felt like skin was hot and had heart palpitations Date Reviewed: 08/09/2023 Reviewed by: Tawana Renee, PT - Fully Assessed Prescriptions as of 08/30/2023 - LORazepam (ATIVAN) 0.5 mg Take 1 tablet by mouth two times a day as needed (anxiety) for up to 90 days. - methotrexate 2.5 mg tablet TAKE 3 TABLETS ONCE WEEKLY - leucovorin (LEUCOVORIN) 5 mg tablet Take one tablet once weekly, 10 to 12 hours after methotrexate administration - meloxicam (MOBIC) 7.5 mg tablet Take 1 tablet by mouth once daily as needed. - levothyroxine (SYNTHROID) 100 mcg tablet TAKE 1 AND 1/2 TABLETS ON SATURDAY AND SATURDAY ONLY, TAKE 1 TABLET REST OF DAYS - oxybutynin (DITROPAN) 5 mg tablet Take 1 tablet by mouth two times a day. - methotrexate 2.5 mg tablet TAKE 3 TABLETS ONCE WEEKLY - acetaminophen (TYLENOL) 500 mg tablet Take 1,000 mg by mouth every 8 hours as needed for pain. - aspirin, enteric coated (ASPIRIN, ENTERIC COATED) 81 mg EC tablet Take 1 tablet by mouth two times a day for 28 days. - ascorbic acid, vitamin C, (VITAMIN C) 500 mg tablet Take 1 tablet by mouth two times a day with meals for 27 doses. - pantoprazole DR (PROTONIX) 20 mg tablet Take 1 tablet by mouth every morning for 14 days. - hydroCHLOROthiazide 12.5 mg capsule Take 1 capsule by mouth once daily as needed (vertigo). As needed for vertigo - abatacept (ORENCIA) 250 mg injection Inject 250 mg intravenously once every month. - rosuvastatin (CRESTOR) 10 mg tablet TAKE 1 TABLET AT BEDTIME - multivitamin tablet Take 1 tablet by mouth once daily. - cholecalciferol (VITAMIN D3) 1,000 unit tab Take 1,000 Units by mouth once daily. Sign Designer: Therapy (PT/OT/Speech/Resp) ID: [id number] 08/30/2023 9:08 AM Author: GEOFFREY DANIEL Signed by GEOFFREY DANIEL PT on 08/30/2023 at 9:08 AM Document text: Program_ID:[id number] Access Code: [email or web address] URL: [email or web address] Date: 08-30-2023 Prepared By: Geoffrey Daniel Program Notes Total Knee Replacement - Day 1 OP PT. Exercises - Supine Heel Slide with Strap - 2 x daily - 7 x weekly - 2-3 sets - 10-20 reps - Knee Flexion Step - 2 x daily - 7 x weekly - 2 sets - 10 reps - Active Straight Leg Raise with Quad Set - 2 x daily - 5-6 x weekly - 2 sets - 8-10 reps - Seated Long Arc Quad - 2 x daily - 5-6 x weekly - 2 sets - 10-15 reps - Standing Hip Abduction with Counter Support - 2 x daily - 5-6 x weekly - 2-3 sets - 8-12 reps - Standing Knee Flexion with Unilateral Counter Support - 2 x daily - 5-6 x weekly - 2 sets - 10 reps - Heel Raises with Counter Support - 2 x daily - 5-6 x weekly - 2 sets - 10-15 reps - Sit to Stand - 2 x daily - 5-6 x weekly - 2 sets - 8-10 reps Normal [facility] THERAPY NTon 08-30-2023 THERAPY NT HNO ID: [id number] Author: GEOFFREY DANIEL, PT Service: ? Author Type: Physical Therapist Type: Therapy (PT/OT/Speech/Resp) Filed: 08/30/2023 09:08 Note Text: Program_ID:[id number] Access Code: [email or web address] URL: [email or web address] Date: 08-30-2023 Prepared By: Geoffrey Daniel Program Notes Total Knee Replacement - Day 1 OP PT. Exercises - Supine Heel Slide with Strap - 2 x daily - 7 x weekly - 2-3 sets - 10-20 reps - Knee Flexion Step - 2 x daily - 7 x weekly - 2 sets - 10 reps - Active Straight Leg Raise with Quad Set - 2 x daily - 5-6 x weekly - 2 sets - 8-10 reps - Seated Long Arc Quad - 2 x daily - 5-6 x weekly - 2 sets - 10-15 reps - Standing Hip Abduction with Counter Support - 2 x daily - 5-6 x weekly - 2-3 sets - 8-12 reps - Standing Knee Flexion with Unilateral Counter Support - 2 x daily - 5-6 x weekly - 2 sets - 10 reps - Heel Raises with Counter Support - 2 x daily - 5-6 x weekly - 2 sets - 10-15 reps - Sit to Stand - 2 x daily - 5-6 x weekly - 2 sets - 8-10 reps Normal [facility] CNTHERAPYon 08-28-2023 CNTHERAPY OT/PT/Speech Visit (PTWS) [place] ([id number]) 1940 F NFR Date Time Provider Department 08/28/23 9:45 AM GEOFFREY DANIEL PTWS Date Time Provider Department Center 08/28/2023 9:45 AM [id number], COLIN PTWS Anjum Alexandra Reason for Visit: Physical Therapy [503] Primary Visit Diagnosis:Primary osteoarthritis of right knee [M17.11] Allergies As of Date: 08/28/2023 Noted Allergy Reaction LIPITOR (ATORVASTATIN) 2019 17 - Myalgia Comments: Myalgia, lethargic ADHESIVE 03/12/2011 2 - Rash Comments: bandaids and tape ANTIVIRAL DRUGS 05/22/2005 6 - Diarrhea CIPRO (CIPROFLOXACIN) 12/10/2007 6 - Diarrhea FLAGYL (METRONIDAZOLE HCL) 12/10/2007 6 - Diarrhea ULTRAM (TRAMADOL HCL) 03/07/2015 14 - Other: See Comments Comments: When taken with celexa, felt like skin was hot and had heart palpitations Date Reviewed: 08/09/2023 Reviewed by: Tawana Renee, PT - Fully Assessed Prescriptions as of 08/28/2023 - LORazepam (ATIVAN) 0.5 mg Take 1 tablet by mouth two times a day as needed (anxiety) for up to 90 days. - methotrexate 2.5 mg tablet TAKE 3 TABLETS ONCE WEEKLY - leucovorin (LEUCOVORIN) 5 mg tablet Take one tablet once weekly, 10 to 12 hours after methotrexate administration - meloxicam (MOBIC) 7.5 mg tablet Take 1 tablet by mouth once daily as needed. - levothyroxine (SYNTHROID) 100 mcg tablet TAKE 1 AND 1/2 TABLETS ON SATURDAY AND SATURDAY ONLY, TAKE 1 TABLET REST OF DAYS - oxybutynin (DITROPAN) 5 mg tablet Take 1 tablet by mouth two times a day. - methotrexate 2.5 mg tablet TAKE 3 TABLETS ONCE WEEKLY - acetaminophen (TYLENOL) 500 mg tablet Take 1,000 mg by mouth every 8 hours as needed for pain. - aspirin, enteric coated (ASPIRIN, ENTERIC COATED) 81 mg EC tablet Take 1 tablet by mouth two times a day for 28 days. - ascorbic acid, vitamin C, (VITAMIN C) 500 mg tablet Take 1 tablet by mouth two times a day with meals for 27 doses. - pantoprazole DR (PROTONIX) 20 mg tablet Take 1 tablet by mouth every morning for 14 days. - hydroCHLOROthiazide 12.5 mg capsule Take 1 capsule by mouth once daily as needed (vertigo). As needed for vertigo - abatacept (ORENCIA) 250 mg injection Inject 250 mg intravenously once every month. - rosuvastatin (CRESTOR) 10 mg tablet TAKE 1 TABLET AT BEDTIME - multivitamin tablet Take 1 tablet by mouth once daily. - cholecalciferol (VITAMIN D3) 1,000 unit tab Take 1,000 Units by mouth once daily. Normal [facility] CNTHERAPYon 08-23-2023 CNTHERAPY OT/PT/Speech Visit (PTWS) [place] ([id number]) 1940 F NFR Date Time Provider Department 08/23/23 8:45 AM WILLY PRIDE PTFLACO Date Time Provider Department [place] 08/23/2023 8:45 AM [id number], COREY PTWS Anjum Alexandra Reason for Visit: Physical Therapy [503] Primary Visit Diagnosis:Primary osteoarthritis of right knee [M17.11] Allergies As of Date: 08/23/2023 Noted Allergy Reaction LIPITOR (ATORVASTATIN) 2019 17 - Myalgia Comments: Myalgia, lethargic ADHESIVE 03/12/2011 2 - Rash Comments: bandaids and tape ANTIVIRAL DRUGS 05/22/2005 6 - Diarrhea CIPRO (CIPROFLOXACIN) 12/10/2007 6 - Diarrhea FLAGYL (METRONIDAZOLE HCL) 12/10/2007 6 - Diarrhea ULTRAM (TRAMADOL HCL) 03/07/2015 14 - Other: See Comments Comments: When taken with celexa, felt like skin was hot and had heart palpitations Date Reviewed: 08/09/2023 Reviewed by: Tawana Renee, PT - Fully Assessed Prescriptions as of 08/23/2023 - LORazepam (ATIVAN) 0.5 mg Take 1 tablet by mouth two times a day as needed (anxiety) for up to 90 days. - methotrexate 2.5 mg tablet TAKE 3 TABLETS ONCE WEEKLY - leucovorin (LEUCOVORIN) 5 mg tablet Take one tablet once weekly, 10 to 12 hours after methotrexate administration - meloxicam (MOBIC) 7.5 mg tablet Take 1 tablet by mouth once daily as needed. - levothyroxine (SYNTHROID) 100 mcg tablet TAKE 1 AND 1/2 TABLETS ON SATURDAY AND SATURDAY ONLY, TAKE 1 TABLET REST OF DAYS - oxybutynin (DITROPAN) 5 mg tablet Take 1 tablet by mouth two times a day. - methotrexate 2.5 mg tablet TAKE 3 TABLETS ONCE WEEKLY - acetaminophen (TYLENOL) 500 mg tablet Take 1,000 mg by mouth every 8 hours as needed for pain. - aspirin, enteric coated (ASPIRIN, ENTERIC COATED) 81 mg EC tablet Take 1 tablet by mouth two times a day for 28 days. - ascorbic acid, vitamin C, (VITAMIN C) 500 mg tablet Take 1 tablet by mouth two times a day with meals for 27 doses. - docusate sodium (COLACE) 100 mg capsule Take 1 capsule by mouth two times a day as needed for constipation. - pantoprazole DR (PROTONIX) 20 mg tablet Take 1 tablet by mouth every morning for 14 days. - hydroCHLOROthiazide 12.5 mg capsule Take 1 capsule by mouth once daily as needed (vertigo). As needed for vertigo - abatacept (ORENCIA) 250 mg injection Inject 250 mg intravenously once every month. - rosuvastatin (CRESTOR) 10 mg tablet TAKE 1 TABLET AT BEDTIME - multivitamin tablet Take 1 tablet by mouth once daily. - cholecalciferol (VITAMIN D3) 1,000 unit tab Take 1,000 Units by mouth once daily. Normal [facility] CNTHERAPYon 08-21-2023 CNTHERAPY OT/PT/Speech Visit (PTWS) [place] ([id number]) 1940 F NFR Date Time Provider Department 08/21/23 11:15 AM GEOFFREY DANIEL PTWS Date Time Provider Department Center 08/21/2023 11:15 AM [id number], COLIN PTWS Anjum Alexandra Reason for Visit: Physical Therapy [503] Primary Visit Diagnosis:Primary osteoarthritis of right knee [M17.11] Allergies As of Date: 08/21/2023 Noted Allergy Reaction LIPITOR (ATORVASTATIN) 2019 17 - Myalgia Comments: Myalgia, lethargic ADHESIVE 03/12/2011 2 - Rash Comments: bandaids and tape ANTIVIRAL DRUGS 05/22/2005 6 - Diarrhea CIPRO (CIPROFLOXACIN) 12/10/2007 6 - Diarrhea FLAGYL (METRONIDAZOLE HCL) 12/10/2007 6 - Diarrhea ULTRAM (TRAMADOL HCL) 03/07/2015 14 - Other: See Comments Comments: When taken with celexa, felt like skin was hot and had heart palpitations Date Reviewed: 08/09/2023 Reviewed by: Tawana Renee, PT - Fully Assessed Prescriptions as of 08/21/2023 - LORazepam (ATIVAN) 0.5 mg Take 1 tablet by mouth two times a day as needed (anxiety) for up to 90 days. - methotrexate 2.5 mg tablet TAKE 3 TABLETS ONCE WEEKLY - leucovorin (LEUCOVORIN) 5 mg tablet Take one tablet once weekly, 10 to 12 hours after methotrexate administration - meloxicam (MOBIC) 7.5 mg tablet Take 1 tablet by mouth once daily as needed. - levothyroxine (SYNTHROID) 100 mcg tablet TAKE 1 AND 1/2 TABLETS ON SATURDAY AND SATURDAY ONLY, TAKE 1 TABLET REST OF DAYS - oxybutynin (DITROPAN) 5 mg tablet Take 1 tablet by mouth two times a day. - methotrexate 2.5 mg tablet TAKE 3 TABLETS ONCE WEEKLY - acetaminophen (TYLENOL) 500 mg tablet Take 1,000 mg by mouth every 8 hours as needed for pain. - aspirin, enteric coated (ASPIRIN, ENTERIC COATED) 81 mg EC tablet Take 1 tablet by mouth two times a day for 28 days. - ascorbic acid, vitamin C, (VITAMIN C) 500 mg tablet Take 1 tablet by mouth two times a day with meals for 27 doses. - docusate sodium (COLACE) 100 mg capsule Take 1 capsule by mouth two times a day as needed for constipation. - pantoprazole DR (PROTONIX) 20 mg tablet Take 1 tablet by mouth every morning for 14 days. - hydroCHLOROthiazide 12.5 mg capsule Take 1 capsule by mouth once daily as needed (vertigo). As needed for vertigo - abatacept (ORENCIA) 250 mg injection Inject 250 mg intravenously once every month. - rosuvastatin (CRESTOR) 10 mg tablet TAKE 1 TABLET AT BEDTIME - multivitamin tablet Take 1 tablet by mouth once daily. - cholecalciferol (VITAMIN D3) 1,000 unit tab Take 1,000 Units by mouth once daily. Normal [facility] CNTHERAPYon 08-16-2023 CNTHERAPY OT/PT/Speech Visit (PTWS) [place] ([id number]) 1940 F NFR Date Time Provider Department 08/16/23 1:00 PM GEOFFREY DANIEL PTWS Date Time Provider Department Center 08/16/2023 1:00 PM [id number], COLIN PTWS Anjum Alexandra Reason for Visit: Physical Therapy [503] Primary Visit Diagnosis:Primary osteoarthritis of right knee [M17.11] Allergies As of Date: 08/16/2023 Noted Allergy Reaction LIPITOR (ATORVASTATIN) 2019 17 - Myalgia Comments: Myalgia, lethargic ADHESIVE 03/12/2011 2 - Rash Comments: bandaids and tape ANTIVIRAL DRUGS 05/22/2005 6 - Diarrhea CIPRO (CIPROFLOXACIN) 12/10/2007 6 - Diarrhea FLAGYL (METRONIDAZOLE HCL) 12/10/2007 6 - Diarrhea ULTRAM (TRAMADOL HCL) 03/07/2015 14 - Other: See Comments Comments: When taken with celexa, felt like skin was hot and had heart palpitations Date Reviewed: 08/09/2023 Reviewed by: Tawana Renee, PT - Fully Assessed Prescriptions as of 08/16/2023 - LORazepam (ATIVAN) 0.5 mg Take 1 tablet by mouth two times a day as needed (anxiety) for up to 90 days. - methotrexate 2.5 mg tablet TAKE 3 TABLETS ONCE WEEKLY - leucovorin (LEUCOVORIN) 5 mg tablet Take one tablet once weekly, 10 to 12 hours after methotrexate administration - meloxicam (MOBIC) 7.5 mg tablet Take 1 tablet by mouth once daily as needed. - levothyroxine (SYNTHROID) 100 mcg tablet TAKE 1 AND 1/2 TABLETS ON SATURDAY AND SATURDAY ONLY, TAKE 1 TABLET REST OF DAYS - oxybutynin (DITROPAN) 5 mg tablet Take 1 tablet by mouth two times a day. - methotrexate 2.5 mg tablet TAKE 3 TABLETS ONCE WEEKLY - acetaminophen (TYLENOL) 500 mg tablet Take 1,000 mg by mouth every 8 hours as needed for pain. - aspirin, enteric coated (ASPIRIN, ENTERIC COATED) 81 mg EC tablet Take 1 tablet by mouth two times a day for 28 days. - ascorbic acid, vitamin C, (VITAMIN C) 500 mg tablet Take 1 tablet by mouth two times a day with meals for 27 doses. - docusate sodium (COLACE) 100 mg capsule Take 1 capsule by mouth two times a day as needed for constipation. - pantoprazole DR (PROTONIX) 20 mg tablet Take 1 tablet by mouth every morning for 14 days. - hydroCHLOROthiazide 12.5 mg capsule Take 1 capsule by mouth once daily as needed (vertigo). As needed for vertigo - abatacept (ORENCIA) 250 mg injection Inject 250 mg intravenously once every month. - rosuvastatin (CRESTOR) 10 mg tablet TAKE 1 TABLET AT BEDTIME - multivitamin tablet Take 1 tablet by mouth once daily. - cholecalciferol (VITAMIN D3) 1,000 unit tab Take 1,000 Units by mouth once daily. [facility] [id number] 08-13-2023 [id number] HNO ID: [id number] Author: GEOFFREY DANIEL PT Service: ? Author Type: Physical Therapist Type: [id number] Filed: 08/13/2023 13:26 Note Text: [facility] Physical Therapy Plan of Care Certification Patient Name: [place] Mosquera : 1940 [facility] #: [id number] Date: 08/13/2023 To: Mando Giron APRN.C* From Therapist: Geoffrey Daniel PT RE: Patient Certification/ Recertification Your review, approval and electronic signature are required in order to comply with Payor: MEDICARE / Plan: MEDICARE A AND B / Product Type: Medicare / regulations. The identified Physical Therapy PLAN OF CARE for the patient is as follows: M17.11 Primary osteoarthritis of right knee (primary encounter diagnosis) PLAN OF CARE: Assessment: [place] Mosquera presents with of 22 day post-status of R TKA with Dr. Jefferson that interferes with rising from a chair, stair negotiation, walking in the community, physical activities, weight bearing (Knee motion.). She presents with impairments in ADL's, gait, independence in exercise, joint mobility, overall function, patient reported outcome measures, range of motion, soft tissue healing, strength, symptom management, and tissue tenderness. PROMIS? (Patient-Reported Outcomes Measurement Information System) scores were reviewed and identified as a rehabilitation concern. Prognosis for therapy is Good due to: current objective clinical presentation, positive past response to therapy, good support system/ coping skills, good overall health status .She will benefit from skilled therapy services to meet the goals established for this plan of care as noted below. Goals for Episode of Care: created on 08/13/23 through 11/05/23 Patient reported outcome of physical function and self-efficacy will increase T-score by a minimum 5 points. [place] in home exercise program. Patient will decrease pain rating by 2 points to meet minimal clinical important difference for numeric pain rating scale. Patient will increase active ROM of R knee to 0-125 degrees to allow the patient to improve walking in the community and stair navigation as well as performance of ADLs/IADLs. Patient will demonstrate increase in RLE strength to 5/5 during manual muscle testing in order to improve function for basic self-care tasks, home management tasks, leisure/recreation skills, and prior functional tasks. Patient will be able to return to normal gait unassisted and without AD. Patient Goals: Full function of her knee and able to walk unassisted. Planned Interventions, Frequency, and Duration: Current Frequency: 2x/week Duration: 8 weeks Total Number of Visits Planned: 16 Planned Treatment Interventions: Therapeutic exercise (66412), Self-longterm management (24748), Patient/Family/Caregive r Education, Neuromuscular re-education (89867), Manual therapy (34218), Therapeutic activities (16802), Gait Training (85648), Body Mechanics Training PLAN FOR NEXT VISIT: Assess how home HEP went; R Knee Ext and Flexion progressions; manual to promote increased knee ext and flexion motion; ther-ex progressions as able. Patient demonstrates good understanding of plan of care and treatment. The above goals and plan of care were discussed and agreed upon by patient/family. For further details regarding this patient refer to the Physical Therapy electronically documented visit dated 08/13/2023. Provider Attestation I have reviewed the treatment plan for [place] Mosquera, [facility]# [id number] for the period of 08/13/23 -- 09/17/23, established on 08/13/2023. Signature certifies the need for therapy services. [facility] CNTHERAPYon 08-13-2023 CNTHERAPY OT/PT/Speech Visit (PTWS) DEMETRIINDIANA J ([id number]) 1940 F NFR Date Time Provider Department 08/13/23 9:00 AM GEOFFREY DANIEL PTWS Date Time Provider Department Center 08/13/2023 9:00 AM [id number], COLIN PTWS [place] Reason for Visit: PT Eval [747] Primary Visit Diagnosis:Primary osteoarthritis of right knee [M17.11] Allergies As of Date: 08/13/2023 Noted Allergy Reaction LIPITOR (ATORVASTATIN) 2019 17 - Myalgia Comments: Myalgia, lethargic ADHESIVE 03/12/2011 2 - Rash Comments: bandaids and tape ANTIVIRAL DRUGS 05/22/2005 6 - Diarrhea CIPRO (CIPROFLOXACIN) 12/10/2007 6 - Diarrhea FLAGYL (METRONIDAZOLE HCL) 12/10/2007 6 - Diarrhea ULTRAM (TRAMADOL HCL) 03/07/2015 14 - Other: See Comments Comments: When taken with celexa, felt like skin was hot and had heart palpitations Date Reviewed: 08/09/2023 Reviewed by: Tawana Renee, PT - Fully Assessed Prescriptions as of 08/13/2023 - methotrexate 2.5 mg tablet TAKE 3 TABLETS ONCE WEEKLY - leucovorin (LEUCOVORIN) 5 mg tablet Take one tablet once weekly, 10 to 12 hours after methotrexate administration - meloxicam (MOBIC) 7.5 mg tablet Take 1 tablet by mouth once daily as needed. - levothyroxine (SYNTHROID) 100 mcg tablet TAKE 1 AND 1/2 TABLETS ON SATURDAY AND SATURDAY ONLY, TAKE 1 TABLET REST OF DAYS - oxybutynin (DITROPAN) 5 mg tablet Take 1 tablet by mouth two times a day. - traMADol (ULTRAM) 50 mg tablet Take 1 tablet by mouth every 8 hours as needed for pain for up to 7 days. for pain. - methotrexate 2.5 mg tablet TAKE 3 TABLETS ONCE WEEKLY - acetaminophen (TYLENOL) 500 mg tablet Take 1,000 mg by mouth every 8 hours as needed for pain. - aspirin, enteric coated (ASPIRIN, ENTERIC COATED) 81 mg EC tablet Take 1 tablet by mouth two times a day for 28 days. - ascorbic acid, vitamin C, (VITAMIN C) 500 mg tablet Take 1 tablet by mouth two times a day with meals for 27 doses. - docusate sodium (COLACE) 100 mg capsule Take 1 capsule by mouth two times a day as needed for constipation. - pantoprazole DR (PROTONIX) 20 mg tablet Take 1 tablet by mouth every morning for 14 days. - hydroCHLOROthiazide 12.5 mg capsule Take 1 capsule by mouth once daily as needed (vertigo). As needed for vertigo - abatacept (ORENCIA) 250 mg injection Inject 250 mg intravenously once every month. - rosuvastatin (CRESTOR) 10 mg tablet TAKE 1 TABLET AT BEDTIME - multivitamin tablet Take 1 tablet by mouth once daily. - cholecalciferol (VITAMIN D3) 1,000 unit tab Take 1,000 Units by mouth once daily. Sign Designer: Therapy (PT/OT/Speech/Resp) ID: [id number] 08/13/2023 9:39 AM Author: GEOFFREY DANIEL Signed by GEOFFREY DANIEL PT on 08/13/2023 at 9:39 AM Document text: Program_ID:[id number] Access Code: [email or web address] URL: [email or web address]/ Date: 08-13-2023 Prepared By: Geoffrey Daniel Program Notes Total Knee Replacement - Day 1 OP PT. Exercises - Long Sitting Quad Set with Towel Roll Under Heel - 2 x daily - 5-6 x weekly - 2-3 sets - 10-20 reps - Supine Heel Slide with Strap - 2 x daily - 7 x weekly - 2-3 sets - 10-20 reps - Seated Passive Knee Extension with Weight - 1-2 x daily - 7 x weekly - 1-2 sets - reps - Active Straight Leg Raise with Quad Set - 2 x daily - 5-6 x weekly - 2-3 sets - 10 reps - Seated Long Arc Quad - 2 x daily - 7 x weekly - 2-3 sets - 10 reps - Standing Hip Abduction with Counter Support - 2 x daily - 5-6 x weekly - 2-3 sets - 8-12 reps [facility] THERAPY NTon 08-13-2023 THERAPY NT HNO ID: [id number] Author: GEOFFREY DANIEL, PT Service: ? Author Type: Physical Therapist Type: Therapy (PT/OT/Speech/Resp) Filed: 08/13/2023 09:39 Note Text: Program_ID:[id number] Access Code: [email or web address] URL: [email or web address] Date: 08-13-2023 Prepared By: Geoffrey Daniel Program Notes Total Knee Replacement - Day 1 OP PT. Exercises - Long Sitting Quad Set with Towel Roll Under Heel - 2 x daily - 5-6 x weekly - 2-3 sets - 10-20 reps - Supine Heel Slide with Strap - 2 x daily - 7 x weekly - 2-3 sets - 10-20 reps - Seated Passive Knee Extension with Weight - 1-2 x daily - 7 x weekly - 1-2 sets - reps - Active Straight Leg Raise with Quad Set - 2 x daily - 5-6 x weekly - 2-3 sets - 10 reps - Seated Long Arc Quad - 2 x daily - 7 x weekly - 2-3 sets - 10 reps - Standing Hip Abduction with Counter Support - 2 x daily - 5-6 x weekly - 2-3 sets - 8-12 reps Normal [facility] XR Knee AP and Lateral and M erchantson 08-08-2023 IMPRESSION: Status post right total knee arthroplasty without hardware-related complication. Auto Winder: MURPHY Transcribe Date/Time: Aug 08 2023 3:20P Dictated by : YURI LOZA MD This examination was interpreted and the report reviewed and electronically signed by: YURI LOZA MD on Aug 08 2023 3:21PM EST [facility] * * *Final Report* * * DATE OF EXAM: Aug 06 2023 2:13PM EZEQUIEL 5209 - XR KNEE 3V AP/LAT/MERCHANT RT / PROCEDURE REASON: M25.561-Right knee pain, unspecified chronicity * * * * Physician Interpretation * * * * EXAMINATION / TECHNIQUE: XR KNEE 3V AP/LAT/MERCHANT RT HISTORY: Right knee pain, unspecified chronicity COMPARISON: Radiograph dated 08/16/2022 RESULT: Interval changes of right total knee arthroplasty with orthopedic hardware in standard position and alignment. No periprosthetic lucency or fracture. Expected postoperative soft tissue swelling and joint effusion. Partially imaged left total knee arthroplasty, incompletely assessed. [facility] Provider, Pari Wheeler - 08/08/2023 * * *Final Report* * * DATE OF EXAM: Aug 06 2023 2:13PM EZEQUIEL 5209 - XR KNEE 3V AP/LAT/MERCHANT RT / PROCEDURE REASON: M25.561-Right knee pain, unspecified chronicity * * * * Physician Interpretation * * * * EXAMINATION / TECHNIQUE: XR KNEE 3V AP/LAT/MERCHANT RT HISTORY: Right knee pain, unspecified chronicity COMPARISON: Radiograph dated 08/16/2022 RESULT: Interval changes of right total knee arthroplasty with orthopedic hardware in standard position and alignment. No periprosthetic lucency or fracture. Expected postoperative soft tissue swelling and joint effusion. Partially imaged left total knee arthroplasty, incompletely assessed. IMPRESSION IMPRESSION: Status post right total knee arthroplasty without hardware-related complication. Auto Winder: PSCAdal Transcribe Date/Time: Aug 08 2023 3:20P Dictated by : YURI LOZA MD This examination was interpreted and the report reviewed and electronically signed by: YURI LOZA MD on Aug 08 2023 3:21PM EST [facility] XR Knee AP and Lateral and M erchantsOrdered By: [facility] Provider on 08-08-2023 [facility] CNNURSEon 08-06-2023 [facility] (ORMDNA) [place] MOSQUERA ([id number]) 1940 F NFR Date Time Provider Department 08/06/23 2:00 PM HIRA RUIZ During your visit today, we recorded the following information about you: Hira Ruiz RN 08/06/2023 3:50 PM Signed Post-op Office Visit [place] Mosquera 83 year old August 06, 2023 3:02 PM Surgery Date: 07/22/23 History: [place] Mosquera Is now 2 weeks out from right TKA. Post-operative course has been without complication. No readmission/complicatio ns Subjective: Patient reports 1/10 pain. Overall is doing well. Walker as ambulatory aid Taking opioid pain medication every 6 hours PRN Objective: Ambulates with a walker, may transition to a cane Incision well-approximated, no drainage, normal alexandra-incisional erythema ROM 0 - 90 Distally DP/PT palpable Distally S/S/SP/DP/T intact at baseline Distally DF/EHL/PF intact at baseline Negative destinee/calf tenderness Xrays: Well-positioned total knee replacement in appropriate alignment with no evidence of loosening Assessment and Plan: [place] Mosquera Is here for a first post-op appointment, overall doing well -continued ice, rest, and use of non-narcotic analgesia as needed -wean off ambulatory aids -discussed home exercises and therapy -WBAT on operative extremity -continue ankle pumps and dvt ppx through 4 weeks -discussed driving requirement: 4 weeks post-op, off narcotic pain medication, adequate brake time -will see back at 6 week appointment for clinical exam -discussed red flag symptoms of acutely increasing pain, new erythema, new swelling, drainage, shortness of breath Hira Ruiz RN Orthopaedic Surgery Allergies As of Date: 08/06/2023 Noted Allergy Reaction LIPITOR (ATORVASTATIN) 2019 17 - Myalgia Comments: Myalgia, lethargic ADHESIVE 03/12/2011 2 - Rash Comments: bandaids and tape ANTIVIRAL DRUGS 05/22/2005 6 - Diarrhea CIPRO (CIPROFLOXACIN) 12/10/2007 6 - Diarrhea FLAGYL (METRONIDAZOLE HCL) 12/10/2007 6 - Diarrhea ULTRAM (TRAMADOL HCL) 03/07/2015 14 - Other: See Comments Comments: When taken with celexa, felt like skin was hot and had heart palpitations Date Reviewed: 08/06/2023 Reviewed by: Hira Ruiz RN - Fully Assessed Reason for Visit: Knee Replacement [363] Post Op [174] Primary Visit Diagnosis:Status post right knee replacement [Z96.651] Order(s):meloxicam (MOBIC) 7.5 mg tabletTake 1 tablet by mouth once daily as needed.Disp: 90 tabletRfl: 0 traMADol (ULTRAM) 50 mg tabletTake 1 tablet by mouth every 8 hours as needed for pain for up to 7 days. for pain.Disp: 21 tabletRfl: 0 Prescriptions as of 08/06/2023 - meloxicam (MOBIC) 7.5 mg tablet Take 1 tablet by mouth once daily as needed. - traMADol (ULTRAM) 50 mg tablet Take 1 tablet by mouth every 8 hours as needed for pain for up to 7 days. for pain. - methotrexate 2.5 mg tablet TAKE 3 TABLETS ONCE WEEKLY - methotrexate 2.5 mg tablet TAKE 3 TABLETS ONCE WEEKLY - leucovorin (LEUCOVORIN) 5 mg tablet Take once weekly, 10 to 12 hours after methotrexate administration - oxybutynin (DITROPAN) 5 mg tablet Take 1 tablet by mouth two times a day. - levothyroxine (SYNTHROID) 100 mcg tablet TAKE 1 AND 1/2 TABLETS ON SATURDAY AND SATURDAY ONLY, TAKE 1 TABLET REST OF DAYS - acetaminophen (TYLENOL) 500 mg tablet Take 1,000 mg by mouth every 8 hours as needed for pain. - aspirin, enteric coated (ASPIRIN, ENTERIC COATED) 81 mg EC tablet Take 1 tablet by mouth two times a day for 28 days. - ascorbic acid, vitamin C, (VITAMIN C) 500 mg tablet Take 1 tablet by mouth two times a day with meals for 27 doses. - docusate sodium (COLACE) 100 mg capsule Take 1 capsule by mouth two times a day as needed for constipation. - pantoprazole DR (PROTONIX) 20 mg tablet Take 1 tablet by mouth every morning for 14 days. - LORazepam (ATIVAN) 0.5 mg Take 1 tablet by mouth daily at bedtime for 90 days. - hydroCHLOROthiazide 12.5 mg capsule Take 1 capsule by mouth once daily as needed (vertigo). As needed for vertigo - abatacept (ORENCIA) 250 mg injection Inject 250 mg intravenously once every month. - rosuvastatin (CRESTOR) 10 mg tablet TAKE 1 TABLET AT BEDTIME - multivitamin tablet Take 1 tablet by mouth once daily. - cholecalciferol (VITAMIN D3) 1,000 unit tab Take 1,000 Units by mouth once daily. Problem List As Of Date 08/06/2023 Noted Resolved Polymyalgia Rheumatica [M35.3] 04/18/2000 06/14/2009 HEMATURIA [599.7] 04/18/2000 Edema [R60.9] 04/18/2000 08/30/2017 Lump or mass in breast [N63.0] 04/18/2000 09/01/2014 Acquired hypothyroidism [E03.9] Venous insufficiency [I87.2] 04/18/2007 History of diverticulitis [Z87.19] 11/13/2007 PERS HX ALLERGY TO LATEX [Z91.040] 12/10/2007 Benign neoplasm of breast [D24.9] 08/30/2017 Disorder of Bone and Cartilage, Unspecified [M8* 06/14/2009 (more content not included)... [facility] XR KNEE 3V AP/LAT/MERCHANT R Ton 08-06-2023 XR KNEE 3V AP/LAT/MERCHANT RT * * *Final Report* * * DATE OF EXAM: Aug 06 2023 2:13PM EZEQUIEL 5209 - XR KNEE 3V AP/LAT/MERCHANT RT / PROCEDURE REASON: M25.561-Right knee pain, unspecified chronicity * * * * Physician Interpretation * * * * EXAMINATION / TECHNIQUE: XR KNEE 3V AP/LAT/MERCHANT RT HISTORY: Right knee pain, unspecified chronicity COMPARISON: Radiograph dated 08/16/2022 RESULT: Interval changes of right total knee arthroplasty with orthopedic hardware in standard position and alignment. No periprosthetic lucency or fracture. Expected postoperative soft tissue swelling and joint effusion. Partially imaged left total knee arthroplasty, incompletely assessed. IMPRESSION: Status post right total knee arthroplasty without hardware-related complication. Auto Winder: PSCB Transcribe Date/Time: Aug 08 2023 3:20P Dictated by : YURI LOZA MD This examination was interpreted and the report reviewed and electronically signed by: YURI LOZA MD on Aug 08 2023 3:21PM EST [id number] [facility] XR Knee AP and Lateral and M shanda 08-06-2023 Radiology Study observation (narrative) [facility] 07-31-2023 CNPN Telephone (HCSIND) [place] MOSQUERA ([id number]) 1940 F NFR Date Time Provider Department 07/31/23 MARIE SALVADOR HCSIND During your visit today, we recorded the following information about you: Mando Giron APRN.EMISSION SPECIALIST 08/01/2023 9:51 AM Signed Addended by: MANDO GIRON on: 08/01/2023 09:51 AM Modules accepted: Orders Allergies As of Date: 07/31/2023 Noted Allergy Reaction LIPITOR (ATORVASTATIN) 2019 17 - Myalgia Comments: Myalgia, lethargic ADHESIVE 03/12/2011 2 - Rash Comments: bandaids and tape ANTIVIRAL DRUGS 05/22/2005 6 - Diarrhea CIPRO (CIPROFLOXACIN) 12/10/2007 6 - Diarrhea FLAGYL (METRONIDAZOLE HCL) 12/10/2007 6 - Diarrhea ULTRAM (TRAMADOL HCL) 03/07/2015 14 - Other: See Comments Comments: When taken with celexa, felt like skin was hot and had heart palpitations Date Reviewed: 07/31/2023 Reviewed by: Marie Salvador, PT - Fully Assessed Reason for Visit: Home Care [6143] Cmt: OP PT orders Primary Visit Diagnosis:Primary osteoarthritis of right knee [M17.11] Order(s):CONSULT TO PHYSICAL THERAPY [4478] Order #: [id number]: 1 FUTURE Prescriptions as of 08/01/2023 - HYDROcodone-acetaminoph en (NORCO) 5-325 mg per tablet Take 1-2 tablets by mouth every 6 hours as needed for pain for up to 7 days. - acetaminophen (TYLENOL) 500 mg tablet Take 1,000 mg by mouth every 8 hours as needed for pain. - aspirin, enteric coated (ASPIRIN, ENTERIC COATED) 81 mg EC tablet Take 1 tablet by mouth two times a day for 28 days. - ascorbic acid, vitamin C, (VITAMIN C) 500 mg tablet Take 1 tablet by mouth two times a day with meals for 27 doses. - docusate sodium (COLACE) 100 mg capsule Take 1 capsule by mouth two times a day as needed for constipation. - polyethylene glycol 3350 17 gram/dose powder Take 17 g by mouth once daily as needed for constipation for up to 10 days. Dissolve dose in 4 - 8 ounces of liquid and take as directed. - meloxicam (MOBIC) 7.5 mg tablet Take 1 tablet by mouth once daily for 14 days. - pantoprazole DR (PROTONIX) 20 mg tablet Take 1 tablet by mouth every morning for 14 days. - methotrexate 2.5 mg tablet TAKE 3 TABLETS ONCE WEEKLY - LORazepam (ATIVAN) 0.5 mg Take 1 tablet by mouth daily at bedtime for 90 days. - leucovorin (LEUCOVORIN) 5 mg tablet TAKE 1 TABLET EVERY SATURDAY - oxybutynin (DITROPAN) 5 mg tablet Take 1 tablet by mouth two times a day. - levothyroxine (SYNTHROID) 100 mcg tablet TAKE 1 AND 1/2 TABLETS ON SATURDAY AND SATURDAY ONLY, TAKE 1 TABLET REST OF DAYS - hydroCHLOROthiazide 12.5 mg capsule Take 1 capsule by mouth once daily as needed (vertigo). As needed for vertigo - abatacept (ORENCIA) 250 mg injection Inject 250 mg intravenously once every month. - rosuvastatin (CRESTOR) 10 mg tablet TAKE 1 TABLET AT BEDTIME - multivitamin tablet Take 1 tablet by mouth once daily. - cholecalciferol (VITAMIN D3) 1,000 unit tab Take 1,000 Units by mouth once daily. Problem List As Of Date 07/31/2023 Noted Resolved Polymyalgia Rheumatica [M35.3] 04/18/2000 06/14/2009 HEMATURIA [599.7] 04/18/2000 Edema [R60.9] 04/18/2000 08/30/2017 Lump or mass in breast [N63.0] 04/18/2000 09/01/2014 Acquired hypothyroidism [E03.9] Venous insufficiency [I87.2] 04/18/2007 History of diverticulitis [Z87.19] 11/13/2007 PERS HX ALLERGY TO LATEX [Z91.040] 12/10/2007 Benign neoplasm of breast [D24.9] 08/30/2017 Disorder of Bone and Cartilage, Unspecified [M8* 06/14/2009 Malignant neoplasm of skin [C44.90] Asymptomatic varicose veins [I83.90] 12/10/2007 09/01/2014 DIFFUS CYSTIC MASTOPATHY [N60.19] 04/06/2008 Digital Mucous Cyst [M67.449] 11/25/2009 Dystrophia Unguis Mediana Canaliformis [L60.9] 11/25/2009 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] 11/25/2009 08/30/2017 Actinic Damage///Sun-Damaged Skin [L57.8] 11/25/2009 09/01/2014 Solar Lentigines [L81.4] 11/25/2009 09/01/2014 Other seborrheic keratosis [L82.1] 11/25/2009 09/01/2014 Postmenopausal atrophic vaginitis [N95.2] 06/06/2010 Urgency of urination [R39.15] 06/06/2010 Urge incontinence [N39.41] 06/06/2010 Screening for malignant neoplasm of the cervix *06/06/2010 Family history of malignant neoplasm of breast *06/06/2010 Ventral hernia, unspecified, without mention of*03/09/2011 08/30/2017 Encounter for long-term (current) use of medica*05/31/2011 RA (rheumatoid arthritis) [M06.9] 05/31/2011 09/01/2014 Backache, unspecified [M54.9] 12/03/2011 Hematuria [R31.9] 06/09/2012 Fibrocystic breast [N60.19] 07/09/2013 Thoracic or lumbosacral neuritis or radiculitis*09/16/2013 Facet hypertrophy of lumbar region [M47.816] 11/03/2013 Lumbar spondylosis [M47.816] 11/03/2013 Lumbar radiculopathy [M54.16] 11/03/2013 Lumbar disc displacement without myelopathy [M5*11/03/2013 Seropositive rheumatoid arthritis (HCC) [M05.9] 10/22/2014 Encounter for long-term current use (more content not included)... [facility] CNPNon 07-26-2023 CNPN Telephone (HCSIND) [place] MOSQUER[place] ([id number]) 1940 F NFR Date Time Provider Department 07/26/23 MARIE SALVADOR HCSIND During your visit today, we recorded the following information about you: Allergies As of Date: 07/26/2023 Noted Allergy Reaction LIPITOR (ATORVASTATIN) 2019 17 - Myalgia Comments: Myalgia, lethargic ADHESIVE 03/12/2011 2 - Rash Comments: bandaids and tape ANTIVIRAL DRUGS 05/22/2005 6 - Diarrhea CIPRO (CIPROFLOXACIN) 12/10/2007 6 - Diarrhea FLAGYL (METRONIDAZOLE HCL) 12/10/2007 6 - Diarrhea ULTRAM (TRAMADOL HCL) 03/07/2015 14 - Other: See Comments Comments: When taken with celexa, felt like skin was hot and had heart palpitations Date Reviewed: 07/26/2023 Reviewed by: Marie Salvador, PT - Fully Assessed Reason for Visit: Home Care [4073] Cmt: Medication interaction Prescriptions as of 07/26/2023 - acetaminophen (TYLENOL) 500 mg tablet Take 1,000 mg by mouth every 8 hours as needed for pain. - HYDROcodone-acetaminoph en (NORCO) 5-325 mg per tablet Take 1-2 tablets by mouth every 6 hours as needed for up to 7 days. - aspirin, enteric coated (ASPIRIN, ENTERIC COATED) 81 mg EC tablet Take 1 tablet by mouth two times a day for 28 days. - ascorbic acid, vitamin C, (VITAMIN C) 500 mg tablet Take 1 tablet by mouth two times a day with meals for 27 doses. - docusate sodium (COLACE) 100 mg capsule Take 1 capsule by mouth two times a day as needed for constipation. - polyethylene glycol 3350 17 gram/dose powder Take 17 g by mouth once daily as needed for constipation for up to 10 days. Dissolve dose in 4 - 8 ounces of liquid and take as directed. - meloxicam (MOBIC) 7.5 mg tablet Take 1 tablet by mouth once daily for 14 days. - pantoprazole DR (PROTONIX) 20 mg tablet Take 1 tablet by mouth every morning for 14 days. - methotrexate 2.5 mg tablet TAKE 3 TABLETS ONCE WEEKLY - LORazepam (ATIVAN) 0.5 mg Take 1 tablet by mouth daily at bedtime for 90 days. - leucovorin (LEUCOVORIN) 5 mg tablet TAKE 1 TABLET EVERY SATURDAY - oxybutynin (DITROPAN) 5 mg tablet Take 1 tablet by mouth two times a day. - levothyroxine (SYNTHROID) 100 mcg tablet TAKE 1 AND 1/2 TABLETS ON SATURDAY AND SATURDAY ONLY, TAKE 1 TABLET REST OF DAYS - hydroCHLOROthiazide 12.5 mg capsule Take 1 capsule by mouth once daily as needed (vertigo). As needed for vertigo - abatacept (ORENCIA) 250 mg injection Inject intravenously once every month. - rosuvastatin (CRESTOR) 10 mg tablet TAKE 1 TABLET AT BEDTIME - multivitamin tablet Take 1 tablet by mouth once daily. - cholecalciferol (VITAMIN D3) 1,000 unit tab Take 1,000 Units by mouth once daily. Problem List As Of Date 07/26/2023 Noted Resolved Polymyalgia Rheumatica [M35.3] 04/18/2000 06/14/2009 HEMATURIA [599.7] 04/18/2000 Edema [R60.9] 04/18/2000 08/30/2017 Lump or mass in breast [N63.0] 04/18/2000 09/01/2014 Acquired hypothyroidism [E03.9] Venous insufficiency [I87.2] 04/18/2007 History of diverticulitis [Z87.19] 11/13/2007 PERS HX ALLERGY TO LATEX [Z91.040] 12/10/2007 Benign neoplasm of breast [D24.9] 08/30/2017 Disorder of Bone and Cartilage, Unspecified [M8* 06/14/2009 Malignant neoplasm of skin [C44.90] Asymptomatic varicose veins [I83.90] 12/10/2007 09/01/2014 DIFFUS CYSTIC MASTOPATHY [N60.19] 04/06/2008 Digital Mucous Cyst [M67.449] 11/25/2009 Dystrophia Unguis Mediana Canaliformis [L60.9] 11/25/2009 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] 11/25/2009 08/30/2017 Actinic Damage///Sun-Damaged Skin [L57.8] 11/25/2009 09/01/2014 Solar Lentigines [L81.4] 11/25/2009 09/01/2014 Other seborrheic keratosis [L82.1] 11/25/2009 09/01/2014 Postmenopausal atrophic vaginitis [N95.2] 06/06/2010 Urgency of urination [R39.15] 06/06/2010 Urge incontinence [N39.41] 06/06/2010 Screening for malignant neoplasm of the cervix *06/06/2010 Family history of malignant neoplasm of breast *06/06/2010 Ventral hernia, unspecified, without mention of*03/09/2011 08/30/2017 Encounter for long-term (current) use of medica*05/31/2011 RA (rheumatoid arthritis) [M06.9] 05/31/2011 09/01/2014 Backache, unspecified [M54.9] 12/03/2011 Hematuria [R31.9] 06/09/2012 Fibrocystic breast [N60.19] 07/09/2013 Thoracic or lumbosacral neuritis or radiculitis*09/16/2013 Facet hypertrophy of lumbar region [M47.816] 11/03/2013 Lumbar spondylosis [M47.816] 11/03/2013 Lumbar radiculopathy [M54.16] 11/03/2013 Lumbar disc displacement without myelopathy [M5*11/03/2013 Seropositive rheumatoid arthritis (HCC) [M05.9] 10/22/2014 Encounter for long-term current use of medicati*10/22/2014 08/30/2017 Lumbar stenosis [M48.061] 11/17/2014 Rheumatoid arthritis involving both hands with *03/07/2015 04/25/2015 Chronic pain of right knee [M25.561, G89.29] 06/20/2015 Status post total left knee replacement [Z96.65*06/20/2015 Abnormality of gait [R26 (more content not included)... Normal [facility] Basic metabolic 2000 panelon 07-24-2023 Anion gap [Moles/Vol] 6 mmol/L Low 9-18 [facility] Comment on above: Order Comment: Speci men Type: BLOOD SPECIMEN Ordering Facility: [facility] Address: [address] [place] [address] Performed By: #### 2 4321-2 #### [facility] CLIA [id number] [address] [place] [address] [place] Calcium [Mass/Vol] 8.8 mg/dL Normal 8.5-10.2 [facility] Comment on above: Order Comment: Speci men Type: BLOOD SPECIMEN Ordering Facility: [facility] Address: [address] [place] [address] Performed By: #### 2 4321-2 #### [facility] CLIA [id number] [address] [place] [address] [place] Chloride [Moles/Vol] 96 mmol/L Low 97-105 [facility] Comment on above: Order Comment: Speci men Type: BLOOD SPECIMEN Ordering Facility: [facility] Address: [address] [place] [address] Performed By: #### 2 4321-2 #### [facility] CLIA [id number] [address] [place] [address] [place] CO2 [Moles/Vol] 28 mmol/L Normal 22-30 [facility] Comment on above: Order Comment: Speci men Type: BLOOD SPECIMEN Ordering Facility: [facility] Address: [address] [place] [address] Performed By: #### 2 4321-2 #### [facility] CLIA [id number] [address] [place] [address] [place] Creatinine [Mass/Vol] 0.65 mg/dL Normal 0.58-0.96 [facility] Comment on above: Order Comment: Speci men Type: BLOOD SPECIMEN Ordering Facility: [facility] Address: [address] [place] [address] Performed By: #### 2 4321-2 #### [facility] CLIA [id number] [address] Creatinine and Glomerular filtration rate.predicted panel (S/P/Bld) 87 mL/min/1.73m??? Normal >=60 [facility] Comment on above: Order Comment: Eliot figueroa Type: BLOOD SPECIMEN Ordering Facility: [facility] Address: [address] [place] [address] Result Comment: Rosy mated Glomerular Filtration Rate (eGFR) is calculated using the 2020 CKD-EPI creatinine equation. This equation utilizes serum creatinine, sex, and age as parameters. The creatinine assay has traceable calibration to isotope dilution-mass spectrometry. Refer to KDIGO guidelines for clinical interpretation. In patients with unstable renal function, e.g. those with acute kidney injury, the eGFR may not accurately reflect actual GFR. Performed By: #### 2 4321-2 #### [facility] CLIA [id number] [address] STATES [facility] Glucose [Mass/Vol] 98 mg/dL Normal 74-99 [facility] Comment on above: Order Comment: Eliot figueroa Type: BLOOD SPECIMEN Ordering Facility: [facility] Address: [address] [place] [address] Result Comment: The [place] Diabetes Association (ADA) provides guidance for cutoff values for fasting glucose and random glucose. The ADA defines fasting as no caloric intake for at least 8 hours. Fasting plasma glucose results between 100 to 125 mg/dL indicate increased risk for diabetes (prediabetes). Fasting plasma glucose results greater than or equal to 126 mg/dL meet the criteria for diagnosis of diabetes. In the absence of unequivocal hyperglycemia, results should be confirmed by repeat testing. In a patient with classic symptoms of hyperglycemia or hyperglycemic crisis, random plasma glucose results greater than or equal to 200 mg/dL meet the criteria for diagnosis of diabetes. Reference: Standards of Medical Care in Diabetes 2016, [place] Diabetes Association. Diabetes Care. 2016.39(Suppl 1). Performed By: #### 2 4321-2 #### [facility] CLIA [id number] [address] STATES [facility] Potassium [Moles/Vol] 4.0 mmol/L Normal 3.7-5.1 [facility] Comment on above: Order Comment: Speci men Type: BLOOD SPECIMEN Ordering Facility: [facility] Address: [address] [place] [address] Performed By: #### 2 4321-2 #### [facility] CLIA [id number] [address] [place] Sodium [Moles/Vol] 130 mmol/L Low 136-144 [facility] Comment on above: Order Comment: Speci men Type: BLOOD SPECIMEN Ordering Facility: [facility] Address: [address] [place] [address] Performed By: #### 2 4321-2 #### [facility] CLIA [id number] [address] Urea nitrogen [Mass/Vol] 9 mg/dL Normal 7-21 [facility] Comment on above: Order Comment: Radhai men Type: BLOOD SPECIMEN Ordering Facility: [facility] Address: [address] [place] [address] Performed By: #### 2 4321-2 #### [facility] CLIA [id number] [address] CASE MANAGEMon 07-24-2023 CASE MANAGEM HNO ID: [id number] Author: NASIMA CASIANO RN Service: ? Author Type: Registered Nurse Type: Care Mgt Progress Note Filed: 07/25/2023 08:32 Note Text: CARE MANAGEMENT PROGRESS NOTE SERVICE DATE: 07/25/2023 SERVICE TIME: 8:32 AM LOS: 1 day Patient was discharged late yesterday. Notified [facility] of the patients discharge home on 07/24/23. CM department will continue to follow for DC needs. SIGNATURE: Nasima Casiano RN PATIENT NAME: Indiana Mosquera DATE: July 25, 2023 TIME: 8:31 AM PAGER/CONTACT #: [phone] Normal [facility] CBC panel Auto (Bld)on 07-23 Erythrocyte distribution width (RBC) [Ratio] 13.5 % Normal 11.5-15.0 [facility] Comment on above: Order Comment: Speci men Type: BLOOD SPECIMEN Ordering Facility: [facility] Address: [address] [place] [address] Performed By: #### 5 8410-2 #### [facility] CLIA [id number] [address] OF [facility] Hematocrit (Bld) [Volume fraction] 33.7 % Low 36.0-46.0 [facility] Comment on above: Order Comment: Speci men Type: BLOOD SPECIMEN Ordering Facility: [facility] Address: [address] [place] [address] Performed By: #### 5 8410-2 #### [facility] CLIA [id number] [address] Hemoglobin (Bld) [Mass/Vol] 11.6 g/dL Normal 11.5-15.5 [facility] Comment on above: Order Comment: Speci men Type: BLOOD SPECIMEN Ordering Facility: [facility] Address: [address] [place] [address] Performed By: #### 5 8410-2 #### [facility] CLIA [id number] [address] MCH (RBC) [Entitic mass] 32.3 pg Normal 26.0-34.0 [facility] Comment on above: Order Comment: Speci men Type: BLOOD SPECIMEN Ordering Facility: [facility] Address: [address] [place] [address] Performed By: #### 5 8410-2 #### [facility] CLIA [id number] [address] MCHC (RBC) [Mass/Vol] 34.4 g/dL Normal 30.5-36.0 [facility] Comment on above: Order Comment: Speci men Type: BLOOD SPECIMEN Ordering Facility: [facility] Address: [address] [place] [address] Performed By: #### 5 8410-2 #### [facility] CLIA [id number] [address] [place] [address] [place] MCV (RBC) [Entitic vol] 93.9 fL Normal 80.0-100.0 [facility] Comment on above: Order Comment: Speci men Type: BLOOD SPECIMEN Ordering Facility: [facility] Address: [address] [place] [address] Performed By: #### 5 8410-2 #### [facility] CLIA [id number] [address] [place] [address] [place] Nucleated RBC (Bld) [#/Vol] 10*3/uL Normal <0.01 [facility] Comment on above: Order Comment: Speci men Type: BLOOD SPECIMEN Ordering Facility: [facility] Address: [address] [place] [address] Performed By: #### 5 8410-2 #### [facility] CLIA [id number] [address] [place] [address] [place] Platelet mean volume (Bld) [Entitic vol] 9.1 fL Normal 9.0-12.7 [facility] Comment on above: Order Comment: Speci men Type: BLOOD SPECIMEN Ordering Facility: [facility] Address: [address] [place] [address] Performed By: #### 5 8410-2 #### [facility] CLIA [id number] [address] [place] Platelets (Bld) [#/Vol] 171 10*3/uL Normal 150-400 [facility] Comment on above: Order Comment: Speci men Type: BLOOD SPECIMEN Ordering Facility: [facility] Address: [address] [place] [address] Performed By: #### 5 8410-2 #### [facility] CLIA [id number] [address] [place] [address] [place] RBC (Bld) [#/Vol] 3.59 10*6/uL Low 3.90-5.20 [facility] Comment on above: Order Comment: Speci men Type: BLOOD SPECIMEN Ordering Facility: [facility] Address: [address] [place] [address] Performed By: #### 5 8410-2 #### [facility] CLIA [id number] [address] [place] [address] [place] WBC (Bld) [#/Vol] 7.61 10*3/uL Normal 3.70-11.00 [facility] Comment on above: Order Comment: Speci men Type: BLOOD SPECIMEN Ordering Facility: [facility] Address: [address] [place] [address] Performed By: #### 5 8410-2 #### [facility] CLIA [id number] [address] [place] [address] [facility] [place] CNCOon 07-24-2023 CNCO Letter Text Normal [facility] CNDSon 07-24-2023 CN HNO ID: [id number] Author: SABINA JEFFERSON MD Service: Orthopaedic Surgery Author Type: Physician Occ Therapy Asst Type: Discharge Summary Filed: 07/26/2023 11:33 Note Text: Attestation signed by Sabina Jefferson MD at 07/26/2023 11:33 AM I agree with the above discharge summary. Reviewed, authenticated, and electronically signed by Sabina Jefferson MD DISCHARGE SUMMARY PATIENT NAME: Indiana Mosquera ADMISSION DATE: 07/22/2023 DISCHARGE DATE: 07/24/2023 PATIENT DISCHARGE SUMMARY C O N F I D E N T I A L I N F O R M A T I O N The following is a brief overview of your hospitalization. Some of the information contained on this summary may be confidential. This information should be kept in your records and should be shared with your regular doctor. These instructions explain what you or your career coordinator need to do to continue your care at home or at another healthcare facility Please go over these instructions with your nurse and career coordinator. If you are not sure about something, please ask. Highest Readmission Risk Score: 12 The 30 day readmissions risk score is derived from an internally validated risk model which evaluates patient level characteristics, utilization history, medication orders and lab results up until the day of discharge. Patients with a score of 40 or above are considered highest risk for readmission. Specific patient level drivers will be listed at the bottom of the summary. The 30 day readmissions risk score is derived from an internally validated risk model which evaluates patient level characteristics, utilization history, medication orders and lab results up until the day of discharge. Patients with a score of 40 or above are considered highest risk for readmission. Where I Will be Going after Discharge: Home with Home Health My Condition at Discharge: Stable PRINCIPAL DIAGNOSIS: (Reason after study for this admission): Procedure(s): ROBOTIC ASSISTED TOTAL KNEE ARTHROPLASTY OTHER DIAGNOSES: Patient Active Hospital Problem List: S/P total knee arthroplasty, right (07/23/2023) OPERATIONS PERFORMED: Procedure(s): ROBOTIC ASSISTED TOTAL KNEE ARTHROPLASTY My Doctors and Medical Team: My Main Hospital Doctor: Sabina Pereira MD PHYSICAL EXAM: See daily progress note Vitals: BP 147/69 Pulse 77 Temp 36.5 ?C (97.7 ?F) (Oral) Resp 18 Ht 154.9 cm (5' 1 ) Wt 55.3 kg (122 lb) SpO2 98% BMI 23.05 kg/m? SUMMARY OF WHAT HAPPENED WHILE PATIENT WAS IN THE HOSPITAL: The patient was followed by Dr. Jefferson in clinic for right knee osteoarthritis. It was determined the patient would benefit from right total knee arthroplasty. The procedure, its risks, benefits, and potential complications were discussed in detail prior to surgery. The patient conveyed understanding of all topics and consented to surgery. The patient was admitted to the hospital. Underwent an elective right total knee arthroplasty on 07/22/[address] Jefferson. The patient tolerated the procedure well and was returned to the Post Anesthesia Care Unit in stable condition. Vital signs per PACU protocol. VTE risk assessment performed. O2 therapy monitored by Respiratory Therapy to include incentive spirometry, ADL, wound and support per physician order set postop protocol. PT and OT to evaluate and treat. IV antibiotics, antiemetics, aspirin for DVT prophylaxis and pain medication were given. The patient had syncopal episode on POD1 while working with therapy. The patient's blood pressure improved with IV fluids. The patient progressed with physical therapy. Lab values and vital signs were monitored and remained stable. The incision remained clean, dry and intact. Thigh and calf are not swollen. No signs of DVT or infection. The patient progressed with physical therapy towards goal of safety and independence. Patient was determined safe for discharge to home with home health care on 07/24/2023. TREATMENT / WOUND CARE: If you have any concerns about your wound, please contact the office. Keep wound and incision area clean and dry. You may remove your dressing on POD #7-10 (7 to 10 days after surgery). If it remains drainage-free, you may leave the dressing off, keeping the wound open to air. If there is any drainage please contact the office You may not submerge the wound under standing water for 6 weeks time after surgery (i.e. no baths, no hot tubs, no swimming pools). Do not rub the wound, but rather pat dry. If you have non-absorbable sutures in place, these will be taken out on your 1st follow-up appointment. Observe the wound for signs of infection, including increased redness, swelling, o (more content not included)... Normal [facility] ECHOon 07-24-2023 Echocardiography Echocardiography Report: Transthoracic Echo [facility] Date of service: 07/24/2023 7:57:41 AM Ordering physician: ZAY ALTAMIRANO Indication: syncope Technologist: Rebecca Ch [facility] Interpreting physician: Obed Banerjee DO PATIENT: Name: MRS. IND[place] MOSQUERA : 1940 Age: 83 years Gender: F History of hypertension and dyslipidemia. Primary rhythm: sinus. Height: 154.90 cm BSA: 1.54 m Weight: 55.34 kg BMI: 23.1 kg/m Heart rate 66 bpm Blood pressure 134/77 mmHg Color Doppler was utilized to interrogate the cardiac valves assessed and spectral Doppler was utilized to determine the flow velocities and pressure gradients reported in this exam. Myocardial strain analysis was performed in this exam to aid in the assessment of cardiac function. MEASUREMENTS: Value Indexed Normal Max aortic dimension 2.9 cm Ao < 3.8 Left atrium diameter 3.1 cm (2D) Left atrial volume 58 ml (biplane A-L) 37 ml/m Malik <= 34 LV ID (diastole) 4.3 cm (2D) 2.77 cm/m LV ID (systole) 2.8 cm (2D) 1.83 cm/m IVS, leaflet tips 0.7 cm (2D) Posterior wall thickness 0.8 cm (2D) Left ventricular mass 103 g (2D) 67 g/m Global peak long strain -20.5 % LV stroke volume 45 ml (2D biplane) LV end diastolic volume 67 ml (2D biplane) 43.1 ml/m 29<=EDVi<62 LV end systolic volume 21 ml (2D biplane) 13.6 ml/m Ejection Fraction 68 % (2D biplane) EF > 54 FINDINGS: LEFT VENTRICLE The left ventricle is normal in size. Left ventricular systolic function is normal. Global LV myocardial strain is normal. Normal left ventricular diastolic function. Mitral annular lateral E/e': 5.2. Mitral annular septal E/e': 8.8. Wall Motion: All scored segments are normal. RIGHT VENTRICLE The right ventricle is normal in size. Right ventricular systolic function is normal. RV systolic tissue Doppler velocity is 16.4 cm/s. Tricuspid annular displacement is 2.7 cm. Estimated right ventricular systolic pressure is 37 mmHg consistent with mild pulmonary hypertension. Estimated right atrial pressure is 8 mmHg based on IVC assessment. LEFT ATRIUM The left atrial cavity is mildly dilated. Pulmonary Veins: The pulmonary venous pattern showed normal systolic flow. RIGHT ATRIUM The right atrial cavity is dilated. Inferior Vena Cava: The inferior vena cava appears dilated measuring 2.2 cm. The vessel decreases greater than 50 percent with inspiration. MITRAL VALVE There is mild (1+) mitral valve regurgitation. There is a posteriorly directed regurgitant jet. There is mild thickening. There is mild calcification. The pressure half time is 84 msec. The peak mitral E/A ratio is 0.64. The average mitral E/e' ratio is 7.0. The mitral flow deceleration time is 290 msec. TRICUSPID VALVE There is mild (1+) tricuspid valve regurgitation. There is mild thickening. The hepatic venous pattern showed normal systolic flow. AORTIC VALVE The aortic valve cusps are structurally normal. There is trace aortic valve regurgitation. Tricuspid aortic valve. The peak gradient is 10 mmHg (peak velocity = 160.0 cm/s). The LVOT diameter is 1.9 cm. PULMONIC VALVE The pulmonic valve was not seen or not interrogated. There is mild (1+) pulmonic valve regurgitation. AORTA The visualized aorta is normal in size. Measurements - Aortic valve annulus 1.9 cm. Mid ascending aorta 2.9 cm. PULMONARY ARTERIES The pulmonary arteries are unseen or not interrogated. PERICARDIUM There is no pericardial effusion. CONCLUSIONS: - Exam indication: syncope - The left ventricle is normal in size. Left ventricular systolic function is normal. EF = 68 5% (2D biplane) Normal left ventricular diastolic function. - The right ventricle is normal in size. Right ventricular systolic function is normal. - The left atrial cavity is mildly dilated. - The right atrial cavity is dilated. - There is mild (1+) mitral regurgitation. - There is mild (1+) tricuspid regurgitation. Echo done bedside. - Exam was compared with the prior OUTSIDE echocardiographic exam performed on 08/25/20. Slight decrease in mitral regurgitation. * * * Final * * * CC [facility] : [id number] [facility]23 THERAPY NT HNO ID: [id number] Author: CARLTON KNOX PT Service: Physical Therapy Author Type: Academic Support Director Type: Therapy (PT/OT/Speech/Resp) Filed: 07/24/2023 17:58 Note Text: Attestation signed by Carlton Knox, PT at 07/24/2023 5:58 PM I reviewed and agree with the documentation corresponding to this therapy visit. Addendum 07/24/2023 5:57 PM discussed POC with RN as patient up in chair and feeling improved tolerance and wants an additional session for possible home going. Will add an additional session this date to address functional progression and home going education as appropriate. SIGNATURE: Carlton Knox PT DATE: July 24, 2023 TIME: 5:57 PM Physical Therapy Treatment Summary SERVICE DATE: 07/24/2023 SERVICE TIME: 1642 to 1722 ROOM: [place] [address] PT 6 Clicks Score: 19 Total Joint Replacement Discharge Readiness: Cleared from Physical Therapy DISCHARGE RECOMMENDATIONS Home PT Recommended Discharge Disposition Comments: to increase ROM/strength to operative leg/knee and progress safe functional mobility in the home Recommended Discharge Equipment: No equipment needs anticipated ASSESSMENT Response to Therapy Interventions: Improved Tolerance for Activity, Good Participation in Activities, On-Track to Achieve Discharge Goals, Pain Patient requires SBA-CGA with all functional moiblity and gait training. Patient demonstrates good safety awareness and appropriately follows therapist cues. Reports light headedness throughout however, vitals remain WNL Spouse present and supportive throughout. Patient is safe for DC home. PRECAUTIONS Fall Risk, Lines/Tubes/Drains, Total Knee Replacement, Weight Bearing Restrictions, Bed/Chair Alarm AROM only Right Lower Extremity Weight Bearing Status: WBAT CURRENT HOSPITAL COURSE s/p right TKA 07/22/23 Relevant Past Medical History: L total hip 2016, L TKR, R total hip, polymyalgia rheumatica, urge incontinence, anxiety, HTN, DVT, RA,diverticulosis of colon, dyslipidemia, edema, vertigo, s/p laminectomy HOME LIVING Patient Lives With: Spouse Assistance Available: 24-Hour (for 1st 5 days from daughter, spouse very limited in amount of assist) Entry To Home: Elevator Number Of Stairs To Bed/Bath: 0 - apartment Tub/Shower Type: walk in shower with shower chair Laundry: laundry in apartment Equipment Owned: Walker- Wheeled, Shower Chair, Elevated Toilet Seat, Cane PRIOR FUNCTIONAL LEVEL Within Functional Limits Ind with amb without device, ADL/IADL, +drives and denies falls. SUBJECTIVE Patient pleasant and cooperative. Ok per RN. THERAPY DIAGNOSIS Difficulty walking-musculoskeletal TREATMENT INTERVENTIONS Therapeutic Activity (71117), Gait Training (44547) Timed Code Treatment (minutes): 40 Skilled Treatment Time (minutes): 40 TRAINING AND EDUCATION PROVIDED Advanced Balance Activities, Anatomy and Impact on Deficits, Assistive Device Use, Bed Mobility, Benefits of In-Hospital Mobility, Discharge Planning, Equipment, Car Transfers, Expected Functional Level, Falls Prevention, Gait Pattern, Reduction of Deviations, Handout Issued, Positioning, Role of Physical Therapy, Standing Balance THERAPEUTIC SKILLS USED Activity Dosing, Cues for Sequencing/Proper Technique for Activity, Cuing Verbal, Movement Facilitation, Muscle Activation Facilitation, Postural Alignment Correction FUNCTIONAL STATUS Bed Mobility Supine To Sit: Additional Information Patient in bed side chair upon arrival Sit to Supine: Minimal Assistance HOB flat, no use of rails Scooting: Stand By Assistance forward/retro at EOB Transfers Sit To Stand: Contact Guard Assistance Cues for hand placement and controlled/eccentric decent Stand To Sit: Contact Guard Assistance, Additional Information Cues for hand placement and controlled/eccentric decent Bed to Chair Gait Contact Guard Assistance Step-to gait, cues for upright posture and diaphragmatic breathing Gait Device: Wheeled Walker General Deviations/Observations : Sepideh decreased, Flexed trunk posture, Step length decreased Gait Distance (feet): 65'x1, 20'x1 Gait Deviations Right Lower Extremity: Foot clearance decreased, Heel strike during initial stance decreased, Step length decreased, Weight bearing decreased Stairs Additional Information NA GOALS Patient will demonstrate progress to optimize functional mobility, maximize activity tolerance and endurance to maximize function upon discharge., Patient will demonstrate progress with functional mobility to allow safe discharge to home with available support and/or physical assistance. Transfer Supine to/from Sit with: Stand By Assistance Transfer Sit to/from Stand with: Stand By Assistance Ambulate with: Stand By Assistance Distance: 60 (more content not included)... Normal [facility] THERAPY NT HNO ID: [id number] Author: CARLTON KNOX PT Service: Physical Therapy Author Type: Physical Therapist Type: Therapy (PT/OT/Speech/Resp) Filed: 07/24/2023 15:47 Note Text: Summary: PT treatment Physical Therapy Treatment Summary SERVICE DATE: 07/24/2023 SERVICE TIME: 1350 to 1445 ROOM: [place] [address] PT 6 Clicks Score: 18 Total Joint Replacement Discharge Readiness: Pending Physical Therapy Clearance DISCHARGE RECOMMENDATIONS Home PT Recommended Discharge Disposition Comments: to increase ROM/strength to operative leg/knee and progress safe functional mobility in the home Recommended Discharge Equipment: No equipment needs anticipated ASSESSMENT Response to Therapy Interventions: Good Participation in Activities, Improved Tolerance for Activity, On-Track to Achieve Discharge Goals, Pain, Requires Additional Time to Complete Activities, Requires Encouragement to Complete Activities, Slow Progression with Functional Activities/Skills patient continues to demonstrate decreased tolerance with same distance due to lightheadedness/woozine ss and pain. patient demonstrates safe mobility with increased UE at walker. less woozy/lighhteaded than yesterday however still needing to sit in chair before back to bed to avoid progression of symptomatic hypotension. symptoms less severe today and would be appropriate to get up to bedside commode/chair with FWW with monitoring to address OOB tolerance. discussed with patient however fatigue and requested time for a nap. chair alarm set up for OOB safety PRECAUTIONS Fall Risk, Lines/Tubes/Drains, Total Knee Replacement, Weight Bearing Restrictions, Bed/Chair Alarm AROM only Right Lower Extremity Weight Bearing Status: WBAT CURRENT HOSPITAL COURSE s/p right TKA 07/22/23 Relevant Past Medical History: L total hip 2016, L TKR, R total hip, polymyalgia rheumatica, urge incontinence, anxiety, HTN, DVT, RA,diverticulosis of colon, dyslipidemia, edema, vertigo, s/p laminectomy HOME LIVING Patient Lives With: Spouse Assistance Available: 24-Hour (for 1st 5 days from daughter, spouse very limited in amount of assist) Entry To Home: Elevator Number Of Stairs To Bed/Bath: 0 - apartment Tub/Shower Type: walk in shower with shower chair Laundry: laundry in apartment Equipment Owned: Walker- Wheeled, Shower Chair, Elevated Toilet Seat, Cane PRIOR FUNCTIONAL LEVEL Within Functional Limits Ind with amb without device, ADL/IADL, +drives and denies falls. SUBJECTIVE patient agreeable to PT and cleared by RN. gabriella for OOB due to wooziness. THERAPY DIAGNOSIS Difficulty walking-musculoskeletal TREATMENT INTERVENTIONS Therapeutic Activity (57267), Gait Training (13461) Timed Code Treatment (minutes): 53 Skilled Treatment Time (minutes): 53 TRAINING AND EDUCATION PROVIDED Anatomy and Impact on Deficits, Assistive Device Use, Bed Mobility, Benefits of In-Hospital Mobility, Discharge Planning, Disease Specific Education, Equipment, Exercise Program, Expected Functional Level, Falls Prevention, Gait Pattern, Reduction of Deviations, Handout Issued, Home Set-up/Modifications, Modalities, Patient Exercise/Therapy Program Support Needs, Positioning, Precautions/Restriction s, Pre-gait Activities, Role of Physical Therapy, Standing Balance, Transfers, Treatment Protocol, Edema Management, Energy Conservation, Pain Neuroscience THERAPEUTIC SKILLS USED Activity Dosing, Assessment of Tolerance Including Vitals Response to Activity, Cues for Sequencing/Proper Technique for Activity, Cuing Verbal, Management of Critical Lines, Tubes and/or Drains, Movement Facilitation, Muscle Activation Facilitation, Physical Assist, Postural Alignment Correction, Teach-Back for Education, Cuing Tactile, Cuing Visual, Task Analysis Learning FUNCTIONAL STATUS Bed Mobility Supine To Sit: Stand By Assistance Sit to Supine: Stand By Assistance cues for LE mgmt. Scooting: Stand By Assistance, Additional Information in sitting fwd/retro Transfers Sit To Stand: Contact Guard Assistance, Additional Information from EOB x 1 and from chair x 1; with FWW. cues for hand placement Bed to Chair Contact Guard Assistance, Additional Information Bed To Chair Transfer Type: Stepping Bed To Chair Transfer Equipment: Wheeled Walker cues for walker negotiaiton/sequencing Gait Contact Guard Assistance, Additional Information reinforced step to pattern with increased UE use with right LE stance. initial 35 feet with std adult walker and 15 feet with youth walker. initial distance limited by min lightheadedness and hypotension with improved symptoms with sitting rest break. Gait Device: Wheeled Walker General Deviations/Observations : Sepideh decreased, Difficulty changing direction/turning, Flexed (more content not included)... Normal [facility] THERAPY NT HNO ID: [id number] Author: CARLTON KNOX PT Service: Physical Therapy Author Type: Physical Therapist Type: Therapy (PT/OT/Speech/Resp) Filed: 07/24/2023 10:25 Note Text: Physical Therapy Treatment Summary SERVICE DATE: 07/24/2023 SERVICE TIME: 0900 to 09 ROOM: [place] [address] PT 6 Clicks Score: 18 Total Joint Replacement Discharge Readiness: Pending Physical Therapy Clearance DISCHARGE RECOMMENDATIONS Home PT Recommended Discharge Disposition Comments: to increase ROM/strength to operative leg/knee and progress safe functional mobility in the home Recommended Discharge Equipment: No equipment needs anticipated ASSESSMENT Response to Therapy Interventions: Good Participation in Activities, Improved Tolerance for Activity, On-Track to Achieve Discharge Goals, Pain, Requires Additional Time to Complete Activities, Requires Encouragement to Complete Activities, Slow Progression with Functional Activities/Skills patient continues to demonstrate mobility tolerance limits due to pain and symptomatic hypotension. min increased distance before symptoms began however concern over ability to mobilize reasonable home distances PRECAUTIONS Fall Risk, Lines/Tubes/Drains, Total Knee Replacement, Weight Bearing Restrictions, Bed/Chair Alarm AROM only Right Lower Extremity Weight Bearing Status: WBAT CURRENT HOSPITAL COURSE s/p right TKA 07/22/23 Relevant Past Medical History: L total hip 2016, L TKR, R total hip, polymyalgia rheumatica, urge incontinence, anxiety, HTN, DVT, RA,diverticulosis of colon, dyslipidemia, edema, vertigo, s/p laminectomy HOME LIVING Patient Lives With: Spouse Assistance Available: 24-Hour (for 1st 5 days from daughter, spouse very limited in amount of assist) Entry To Home: Elevator Number Of Stairs To Bed/Bath: 0 - apartment Tub/Shower Type: walk in shower with shower chair Laundry: laundry in apartment Equipment Owned: Walker- Wheeled, Shower Chair, Elevated Toilet Seat, Cane PRIOR FUNCTIONAL LEVEL Within Functional Limits Ind with amb without device, ADL/IADL, +drives and denies falls. SUBJECTIVE patient agreeable to PT and cleared by RN. denies lightheadedness/dizzine ss/nausea initially with need to sit mid walk due to min lightheaded. THERAPY DIAGNOSIS Difficulty walking-musculoskeletal TREATMENT INTERVENTIONS Therapeutic Activity (06683), Gait Training (19055) Timed Code Treatment (minutes): 38 TRAINING AND EDUCATION PROVIDED Anatomy and Impact on Deficits, Assistive Device Use, Bed Mobility, Benefits of In-Hospital Mobility, Discharge Planning, Disease Specific Education, Equipment, Exercise Program, Expected Functional Level, Falls Prevention, Gait Pattern, Reduction of Deviations, Handout Issued, Home Set-up/Modifications, Modalities, Patient Exercise/Therapy Program Support Needs, Positioning, Precautions/Restriction s, Pre-gait Activities, Role of Physical Therapy, Standing Balance, Transfers, Treatment Protocol, Edema Management, Energy Conservation, Pain Neuroscience THERAPEUTIC SKILLS USED Activity Dosing, Assessment of Tolerance Including Vitals Response to Activity, Cues for Sequencing/Proper Technique for Activity, Cuing Verbal, Management of Critical Lines, Tubes and/or Drains, Movement Facilitation, Muscle Activation Facilitation, Physical Assist, Postural Alignment Correction, Teach-Back for Education, Cuing Tactile, Cuing Visual, Task Analysis Learning FUNCTIONAL STATUS Bed Mobility Supine To Sit: Stand By Assistance Sit to Supine: Minimal Assistance, Additional Information for right LE mgmt. cues for technique. Scooting: Stand By Assistance Transfers Sit To Stand: Contact Guard Assistance, Additional Information from min elevated EOB x 1 and from chair x 1; with FWW. reinforced WBAT right LE and cues for hand placement/improved rising Bed to Chair Additional Information Bed To Chair Transfer Type: Stand Pivot Bed To Chair Transfer Equipment: (none) not performed this session Gait Contact Guard Assistance, Additional Information reinforced step to pattern with increased UE use with right LE stance. initial 35 feet with std adult walker and 15 feet with youth walker. initial distance limited by min lightheadedness and hypotension with improved symptoms with sitting rest break. Gait Device: Wheeled Walker General Deviations/Observations : Sepideh decreased, Difficulty changing direction/turning, Flexed trunk posture, Improper distancing from assistive device, Step length decreased Gait Distance (feet): 35 x 1 and 15 x 1 Gait Deviations Right Lower Extremity: Heel strike during initial stance decreased, Lacks hip extension beyond mid-stance, Push off during terminal stance decreased, Stance time decreased, Step length decreased, Weight bearing decreased Stairs GOALS Patient will demonstrate progress to optimize functional mobility, maximize activity tolerance and endurance to maxi (more content not included)... Normal [facility] Basic metabolic 2000 panelon 07-23-2023 Anion gap [Moles/Vol] 12 mmol/L Normal 9-18 [facility] Comment on above: Order Comment: Speci men Type: BLOOD SPECIMEN Ordering Facility: [facility] Address: [address] [place] [address] Performed By: #### 2 4321-2 #### [facility] CLIA [id number] [address] [place] [address] [place] Calcium [Mass/Vol] 8.9 mg/dL Normal 8.5-10.2 [facility] Comment on above: Order Comment: Speci men Type: BLOOD SPECIMEN Ordering Facility: [facility] Address: [address] [place] [address] Performed By: #### 2 4321-2 #### [facility] CLIA [id number] [address] [place] [address] [place] Chloride [Moles/Vol] 96 mmol/L Low 97-105 [facility] Comment on above: Order Comment: Speci men Type: BLOOD SPECIMEN Ordering Facility: [facility] Address: [address] [place] [address] Performed By: #### 2 4321-2 #### [facility] CLIA [id number] [address] [place] [address] [place] CO2 [Moles/Vol] 24 mmol/L Normal 22-30 [facility] Comment on above: Order Comment: Speci men Type: BLOOD SPECIMEN Ordering Facility: [facility] Address: [address] [place] [address] Performed By: #### 2 4321-2 #### [facility] CLIA [id number] [address] [place] [address] [place] Creatinine [Mass/Vol] 0.73 mg/dL Normal 0.58-0.96 [facility] Comment on above: Order Comment: Speci men Type: BLOOD SPECIMEN Ordering Facility: [facility] Address: [address] [place] [address] Performed By: #### 2 4321-2 #### [facility] CLIA [id number] [address] Creatinine and Glomerular filtration rate.predicted panel (S/P/Bld) 82 mL/min/1.73m??? Normal >=60 [facility] Comment on above: Order Comment: Eliot figueroa Type: BLOOD SPECIMEN Ordering Facility: [facility] Address: [address] [place] [address] Result Comment: Rosy mated Glomerular Filtration Rate (eGFR) is calculated using the 2020 CKD-EPI creatinine equation. This equation utilizes serum creatinine, sex, and age as parameters. The creatinine assay has traceable calibration to isotope dilution-mass spectrometry. Refer to KDIGO guidelines for clinical interpretation. In patients with unstable renal function, e.g. those with acute kidney injury, the eGFR may not accurately reflect actual GFR. Performed By: #### 2 4321-2 #### [facility] CLIA [id number] [address] [place] Glucose [Mass/Vol] 92 mg/dL Normal 74-99 [facility] Comment on above: Order Comment: Eliot figueroa Type: BLOOD SPECIMEN Ordering Facility: [facility] Address: [address] [place] [address] Result Comment: The [place] Diabetes Association (ADA) provides guidance for cutoff values for fasting glucose and random glucose. The ADA defines fasting as no caloric intake for at least 8 hours. Fasting plasma glucose results between 100 to 125 mg/dL indicate increased risk for diabetes (prediabetes). Fasting plasma glucose results greater than or equal to 126 mg/dL meet the criteria for diagnosis of diabetes. In the absence of unequivocal hyperglycemia, results should be confirmed by repeat testing. In a patient with classic symptoms of hyperglycemia or hyperglycemic crisis, random plasma glucose results greater than or equal to 200 mg/dL meet the criteria for diagnosis of diabetes. Reference: Standards of Medical Care in Diabetes 2016, [place] Diabetes Association. Diabetes Care. 2016.39(Suppl 1). Performed By: #### 2 4321-2 #### [facility] CLIA [id number] [address] [place] [address] [place] Potassium [Moles/Vol] 3.3 mmol/L Low 3.7-5.1 [facility] Comment on above: Order Comment: Speci men Type: BLOOD SPECIMEN Ordering Facility: [facility] Address: [address] [place] [address] Performed By: #### 2 4321-2 #### [facility] CLIA [id number] [address] [place] [address] [place] Sodium [Moles/Vol] 132 mmol/L Low 136-144 [facility] Comment on above: Order Comment: Speci men Type: BLOOD SPECIMEN Ordering Facility: [facility] Address: [address] [place] [address] Performed By: #### 2 4321-2 #### [facility] CLIA [id number] [address] [place] [address] [place] Urea nitrogen [Mass/Vol] 18 mg/dL Normal 7-21 [facility] Comment on above: Order Comment: Speci men Type: BLOOD SPECIMEN Ordering Facility: [facility] Address: [address] [place] [address] Performed By: #### 2 4321-2 #### [facility] CLIA [id number] [address] [place] [address] [place] Anion gap [Moles/Vol] 9 mmol/L Normal 9-18 [facility] Comment on above: Order Comment: Speci men Type: BLOOD SPECIMEN Ordering Facility: [facility] Address: [address] [place] [address] Performed By: #### 2 4321-2 #### [facility] CLIA [id number] [address] [place] [address] [place] Calcium [Mass/Vol] 8.6 mg/dL Normal 8.5-10.2 [facility] Comment on above: Order Comment: Speci men Type: BLOOD SPECIMEN Ordering Facility: [facility] Address: [address] [place] [address] Performed By: #### 2 4321-2 #### [facility] CLIA [id number] [address] [place] [address] [place] Chloride [Moles/Vol] 97 mmol/L Normal 97-105 [facility] Comment on above: Order Comment: Eliot figueroa Type: BLOOD SPECIMEN Ordering Facility: [facility] Address: [address] [place] [address] Performed By: #### 2 4321-2 #### [facility] CLIA [id number] [address] OF [facility] CO2 [Moles/Vol] 25 mmol/L Normal 22-30 [facility] Comment on above: Order Comment: Speci men Type: BLOOD SPECIMEN Ordering Facility: [facility] Address: [address] [place] [address] Performed By: #### 2 4321-2 #### [facility] CLIA [id number] [address] Creatinine [Mass/Vol] 0.75 mg/dL Normal 0.58-0.96 [facility] Comment on above: Order Comment: Eliot men Type: BLOOD SPECIMEN Ordering Facility: [facility] Address: [address] [place] [address] Performed By: #### 2 4321-2 #### [facility] CLIA [id number] [address] Creatinine and Glomerular filtration rate.predicted panel (S/P/Bld) 79 mL/min/1.73m??? Normal >=60 [facility] Comment on above: Order Comment: Eliot figueroa Type: BLOOD SPECIMEN Ordering Facility: [facility] Address: [address] [place] [address] Result Comment: Rosy mated Glomerular Filtration Rate (eGFR) is calculated using the 2020 CKD-EPI creatinine equation. This equation utilizes serum creatinine, sex, and age as parameters. The creatinine assay has traceable calibration to isotope dilution-mass spectrometry. Refer to KDIGO guidelines for clinical interpretation. In patients with unstable renal function, e.g. those with acute kidney injury, the eGFR may not accurately reflect actual GFR. Performed By: #### 2 4321-2 #### [facility] CLIA [id number] [address] OF [facility] Glucose [Mass/Vol] 90 mg/dL Normal 74-99 [facility] Comment on above: Order Comment: Eliot figueroa Type: BLOOD SPECIMEN Ordering Facility: [facility] Address: [address] [place], [place] [address] Result Comment: The [place] Diabetes Association (ADA) provides guidance for cutoff values for fasting glucose and random glucose. The ADA defines fasting as no caloric intake for at least 8 hours. Fasting plasma glucose results between 100 to 125 mg/dL indicate increased risk for diabetes (prediabetes). Fasting plasma glucose results greater than or equal to 126 mg/dL meet the criteria for diagnosis of diabetes. In the absence of unequivocal hyperglycemia, results should be confirmed by repeat testing. In a patient with classic symptoms of hyperglycemia or hyperglycemic crisis, random plasma glucose results greater than or equal to 200 mg/dL meet the criteria for diagnosis of diabetes. Reference: Standards of Medical Care in Diabetes 2016, [place] [employer]. Diabetes Care. 2016.39(Suppl 1). Performed By: #### 2 4321-2 #### [facility] CLIA [id number] [address] [place] [address] [place] Potassium [Moles/Vol] 4.2 mmol/L Normal 3.7-5.1 [facility] Comment on above: Order Comment: Eliot figueroa Type: BLOOD SPECIMEN Ordering Facility: [facility] Address: [address] [place] [address] Performed By: #### 2 4321-2 #### [facility] CLIA [id number] [address] [place] [address] [place] Sodium [Moles/Vol] 131 mmol/L Low 136-144 [facility] Comment on above: Order Comment: Eliot figueroa Type: BLOOD SPECIMEN Ordering Facility: [facility] Address: [address] [place] [address] Performed By: #### 2 4321-2 #### [facility] CLIA [id number] [address] [place] [address] [place] Urea nitrogen [Mass/Vol] 16 mg/dL Normal 7-21 [facility] Comment on above: Order Comment: Eliot figueroa Type: BLOOD SPECIMEN Ordering Facility: [facility] Address: [address] [place] [address] Performed By: #### 2 4321-2 #### [facility] CLIA [id number] [address] [place] [address] [facility] CASE MANAGEMon 07-23-2023 CASE MANAGEM HNO ID: [id number] Author: NASIMA CASIANO RN Service: ? Author Type: Registered Nurse Type: Care Mgt Progress Note Filed: 07/23/2023 09:30 Note Text: CARE MANAGEMENT PROGRESS NOTE SERVICE DATE: 07/23/2023 SERVICE TIME: 9:30 AM LOS: 0 days Needs Prior to Discharge: OT/PT Evaluation [facility] able to accept. department will continue to follow for DC needs. SIGNATURE: Nasima Casiano RN PATIENT NAME: [place] Mosquera DATE: July 23, 2023 TIME: 9:30 AM PAGER/CONTACT #: [phone] [facility] CASE MGT INIT ASSESon 2023 CASE MGT INIT [facility] HNO ID: [id number] Author: NASIMA CASIANO RN Service: ? Author Type: Registered Nurse Type: Care Mgt Initial Assessment Filed: 07/23/2023 09:10 Note Text: CARE MANAGEMENT: ASSESSMENT AND DISCHARGE PLAN SERVICE DATE: July 23, 2023 SERVICE TIME: 9:08 AM PCP: Jerry Arnold MD Primary Contact: Extended Emergency Contact Information Primary Emergency Contact: Navid Mosquera Address: [address] [place] [id number] [facility] Mobile Relation: Spouse Admission Status: Extended Recovery Insurance Provider: MEDICARE A AND B Discharge Planning requested by: Per Department Practice Potential Transition Plans To Be Determined Advance Directives Current Advance Directive: Living Will In Chart: Yes Up To Date and Valid: Yes Current Living Arrangements and Support Lives with: Spouse/significant other Type of Residence: Private Residence (House) Does the patient have to climb stairs at home?: Yes;stairs outside the home Support: Children, Spouse/significant other How do you manage to accomplish the following: Independent: Ambulation;Bathe/Shower ;Dress;Meals/Meal Prep;Going to the bathroom;Medication Management;Transportati on to appointments/community Current Services/Equipment Current Post-Acute Service(s): DME Current DME Type: Walker, Cane, Elevated toilet seat Discharge Planning Patient Goal(s): Be able to go home [place] of Choice Explained: [place] Given: Yes Level of Care Discussed: Home Care Are you interested in bedside delivery of your medications? Yes Discharge Planning Participant(s): Patient Patient/Family Comments: Caregiver Assessment: Caregiver is ready, willing and able to meet the patient's needs as recommended by the inter-professional team: Yes Name of Caregiver: Transport at Discharge: Transportation Arrangements: Car Needs Prior to Discharge: Needs Prior to Discharge: OT/PT Evaluation Post-Acute Discharge Plan: Review of the chart and met with the patient. The patient lives with her in a ranch home. PT- Pending. Discussed discharge planning with the patient, she plans on discharging home with Home PT. Referral to [facility]. department will continue to follow for DC needs. SIGNATURE: Nasima Casiano RN PATIENT NAME: Indaina Mosquera DATE: July 23, 2023 TIME: 9:08 AM CONTACT #: [phone] Normal [facility] CBC panel Auto (Bld)on 07-22 Erythrocyte distribution width (RBC) [Ratio] 13.6 % Normal 11.5-15.0 [facility] Comment on above: Order Comment: Eliot figueroa Type: BLOOD SPECIMEN Ordering Facility: [facility] Address: [address] [place] [address] Performed By: #### 5 8410-2 #### [facility] CLIA [id number] [address] [place] [address] [place] Hematocrit (Bld) [Volume fraction] 36.1 % Normal 36.0-46.0 [facility] Comment on above: Order Comment: Eliot figueroa Type: BLOOD SPECIMEN Ordering Facility: [facility] Address: [address] [place] [address] Performed By: #### 5 8410-2 #### [facility] CLIA [id number] [address] [place] [address] [place] Hemoglobin (Bld) [Mass/Vol] 12.1 g/dL Normal 11.5-15.5 [facility] Comment on above: Order Comment: Eliot figueroa Type: BLOOD SPECIMEN Ordering Facility: [facility] Address: [address] [place] [address] Performed By: #### 5 8410-2 #### [facility] CLIA [id number] [address] MCH (RBC) [Entitic mass] 31.4 pg Normal 26.0-34.0 [facility] Comment on above: Order Comment: Speci men Type: BLOOD SPECIMEN Ordering Facility: [facility] Address: [address] [place] [address] Performed By: #### 5 8410-2 #### [facility] CLIA [id number] [address] MCHC (RBC) [Mass/Vol] 33.5 g/dL Normal 30.5-36.0 [facility] Comment on above: Order Comment: Speci men Type: BLOOD SPECIMEN Ordering Facility: [facility] Address: [address] [place] [address] Performed By: #### 5 8410-2 #### [facility] CLIA [id number] [address] MCV (RBC) [Entitic vol] 93.8 fL Normal 80.0-100.0 [facility] Comment on above: Order Comment: Speci men Type: BLOOD SPECIMEN Ordering Facility: [facility] Address: [address] [place] [address] Performed By: #### 5 8410-2 #### [facility] CLIA [id number] [address] Nucleated RBC (Bld) [#/Vol] 10*3/uL Normal <0.01 [facility] Comment on above: Order Comment: Speci men Type: BLOOD SPECIMEN Ordering Facility: [facility] Address: [address] [place] [address] Performed By: #### 5 8410-2 #### [facility] CLIA [id number] [address] Platelet mean volume (Bld) [Entitic vol] 9.6 fL Normal 9.0-12.7 [facility] Comment on above: Order Comment: Speci men Type: BLOOD SPECIMEN Ordering Facility: [facility] Address: [address] [place] [address] Performed By: #### 5 8410-2 #### [facility] CLIA [id number] [address] Platelets (Bld) [#/Vol] 221 10*3/uL Normal 150-400 [facility] Comment on above: Order Comment: Speci men Type: BLOOD SPECIMEN Ordering Facility: [facility] Address: [address] [place] [address] Performed By: #### 5 8410-2 #### [facility] CLIA [id number] [address] [place] RBC (Bld) [#/Vol] 3.85 10*6/uL Low 3.90-5.20 [facility] Comment on above: Order Comment: Speci men Type: BLOOD SPECIMEN Ordering Facility: [facility] Address: [address] [place] [address] Performed By: #### 5 8410-2 #### [facility] CLIA [id number] [address] WBC (Bld) [#/Vol] 13.16 10*3/uL High 3.70-11.00 [facility] Comment on above: Order Comment: Speci men Type: BLOOD SPECIMEN Ordering Facility: [facility] Address: [address] [place] [address] Performed By: #### 5 8410-2 #### [facility] CLIA [id number] [address] Erythrocyte distribution width (RBC) [Ratio] 13.4 % Normal 11.5-15.0 [facility] Comment on above: Order Comment: Speci men Type: BLOOD SPECIMEN Ordering Facility: [facility] Address: [address] [place] [address] Performed By: #### 5 8410-2 #### [facility] CLIA [id number] [address] Hematocrit (Bld) [Volume fraction] 34.4 % Low 36.0-46.0 [facility] Comment on above: Order Comment: Speci men Type: BLOOD SPECIMEN Ordering Facility: [facility] Address: [address] [place] [address] Performed By: #### 5 8410-2 #### [facility] CLIA [id number] [address] OF [facility] Hemoglobin (Bld) [Mass/Vol] 11.9 g/dL Normal 11.5-15.5 [facility] Comment on above: Order Comment: Speci men Type: BLOOD SPECIMEN Ordering Facility: [facility] Address: [address] [place] [address] Performed By: #### 5 8410-2 #### [facility] CLIA [id number] [address] MCH (RBC) [Entitic mass] 32.3 pg Normal 26.0-34.0 [facility] Comment on above: Order Comment: Speci men Type: BLOOD SPECIMEN Ordering Facility: [facility] Address: [address] [place] [address] Performed By: #### 5 8410-2 #### [facility] CLIA [id number] [address] MCHC (RBC) [Mass/Vol] 34.6 g/dL Normal 30.5-36.0 [facility] Comment on above: Order Comment: Speci men Type: BLOOD SPECIMEN Ordering Facility: [facility] Address: [address] [place] [address] Performed By: #### 5 8410-2 #### [facility] CLIA [id number] [address] MCV (RBC) [Entitic vol] 93.5 fL Normal 80.0-100.0 [facility] Comment on above: Order Comment: Speci men Type: BLOOD SPECIMEN Ordering Facility: [facility] Address: [address] [place] [address] Performed By: #### 5 8410-2 #### [facility] CLIA [id number] [address] Nucleated RBC (Bld) [#/Vol] 10*3/uL Normal <0.01 [facility] Comment on above: Order Comment: Speci men Type: BLOOD SPECIMEN Ordering Facility: [facility] Address: [address] [place] [address] Performed By: #### 5 8410-2 #### [facility] CLIA [id number] [address] OF [facility] Platelet mean volume (Bld) [Entitic vol] 9.7 fL Normal 9.0-12.7 [facility] Comment on above: Order Comment: Speci men Type: BLOOD SPECIMEN Ordering Facility: [facility] Address: [address] [place] [address] Performed By: #### 5 8410-2 #### [facility] CLIA [id number] [address] OF [facility] Platelets (Bld) [#/Vol] 192 10*3/uL Normal 150-400 [facility] Comment on above: Order Comment: Speci men Type: BLOOD SPECIMEN Ordering Facility: [facility] Address: [address] [place] [address] Performed By: #### 5 8410-2 #### [facility] CLIA [id number] [address] [place] RBC (Bld) [#/Vol] 3.68 10*6/uL Low 3.90-5.20 [facility] Comment on above: Order Comment: Speci men Type: BLOOD SPECIMEN Ordering Facility: [facility] Address: [address] [place] [address] Performed By: #### 5 8410-2 #### [facility] CLIA [id number] [address] [place] WBC (Bld) [#/Vol] 10.59 10*3/uL Normal 3.70-11.00 [facility] Comment on above: Order Comment: Speci men Type: BLOOD SPECIMEN Ordering Facility: [facility] Address: [address] [place] [address] Performed By: #### 5 8410-2 #### [facility] CLIA [id number] [address] [place] CNCOon 03-12-2024 CNCO Letter Text Normal [facility] CNPNon 07-23-2023 CNPN Telephone (HCSIND) IND[place]NA MOSQUERA ([id number]) 1940 F NFR Date Time Provider Department 07/23/23 GAGE BELTRE HCSIND During your visit today, we recorded the following information about you: Gage Beltre PSS 07/23/2023 1:18 PM Addendum Date/Time: 07/23/2023 12:47 PM Spoke with patient @ phone #: [phone] - Preferred # for contact: [phone] Have you received help from a home care company in the last 60 days? no Are you agreeable to [facility] services? Yes What address will we be seeing you at? [address] [facility] [address] [facility] [address] Do you have any upcoming appointments or things we need to schedule around? No Do you have a teachable CG or can you manage your care independently? Cares for self Allergies As of Date: 07/23/2023 Noted Allergy Reaction LIPITOR (ATORVASTATIN) 2019 17 - Myalgia Comments: Myalgia, lethargic ADHESIVE 03/12/2011 2 - Rash Comments: bandaids and tape ANTIVIRAL DRUGS 05/22/2005 6 - Diarrhea CIPRO (CIPROFLOXACIN) 12/10/2007 6 - Diarrhea FLAGYL (METRONIDAZOLE HCL) 12/10/2007 6 - Diarrhea ULTRAM (TRAMADOL HCL) 03/07/2015 14 - Other: See Comments Comments: When taken with celexa, felt like skin was hot and had heart palpitations Date Reviewed: 07/23/2023 Reviewed by: Jaclyn Aguilera RN - Fully Assessed Reason for Visit: Home Care [4073] Cmt: Confirmation Call Prescriptions as of 07/23/2023 - aspirin, enteric coated (ASPIRIN, ENTERIC COATED) 81 mg EC tablet Take 1 tablet by mouth two times a day for 28 days. - acetaminophen (TYLENOL) 500 mg tablet Take 2 tablets by mouth every 8 hours as needed for pain. - meloxicam (MOBIC) 7.5 mg tablet Take 1 tablet by mouth once daily for 14 days. - pantoprazole DR (PROTONIX) 20 mg tablet Take 1 tablet by mouth every morning for 14 days. - ascorbic acid, vitamin C, (VITAMIN C) 500 mg tablet Take 1 tablet by mouth two times a day with meals for 27 doses. - docusate sodium (COLACE) 100 mg capsule Take 1 capsule by mouth two times a day as needed for constipation. - polyethylene glycol 3350 17 gram/dose powder Take 17 g by mouth once daily as needed for constipation for up to 10 days. Dissolve dose in 4 - 8 ounces of liquid and take as directed. - oxyCODONE IR (ROXICODONE) 5 mg immediate release tablet Take 1-2 tablets by mouth every 6 hours as needed for pain for up to 7 days. - methotrexate 2.5 mg tablet TAKE 3 TABLETS ONCE WEEKLY - LORazepam (ATIVAN) 0.5 mg Take 1 tablet by mouth daily at bedtime for 90 days. - leucovorin (LEUCOVORIN) 5 mg tablet TAKE 1 TABLET EVERY SATURDAY - oxybutynin (DITROPAN) 5 mg tablet Take 1 tablet by mouth two times a day. - levothyroxine (SYNTHROID) 100 mcg tablet TAKE 1 AND 1/2 TABLETS ON SATURDAY AND SATURDAY ONLY, TAKE 1 TABLET REST OF DAYS - hydroCHLOROthiazide 12.5 mg capsule Take 1 capsule by mouth once daily as needed (vertigo). As needed for vertigo - abatacept (ORENCIA) 250 mg injection Inject intravenously once every month. - rosuvastatin (CRESTOR) 10 mg tablet TAKE 1 TABLET AT BEDTIME - multivitamin tablet Take 1 tablet by mouth once daily. - cholecalciferol (VITAMIN D3) 1,000 unit tab Take 1,000 Units by mouth once daily. Facility-Administered Medications as of 07/23/2023 - scopolamine - VERIFY patch - scopolamine - REMOVE PATCH - sodium chloride 0.9 % (flush) 2-10 mL (BD POSIFLUSH) - perflutren lipid microspheres 1.1 mg/mL 1.3 mL injection (DEFINITY) - NaCl 0.9% iv flush bag - lactated ringers iv infusion - oxyCODONE IR 5-10 mg tab(s) (ROXICODONE) - HYDROmorphone 0.2 mg injection (DILAUDID) - acetaminophen 1,000 mg tab(s) (TYLENOL) - keTORolac 15 mg injection (Toradol) - ondansetron orally disintegrating 4 mg tab(s) (ZOFRAN ODT) - ondansetron (PF) 4 mg injection (ZOFRAN) - polyethylene glycol 3350 17 g packet - bisacodyl EC 10 mg tab(s) (DULCOLAX) - aluminum-magnesium hydroxide-simethicone 200-200-20 mg/5 mL 30 mL - ascorbic acid (vitamin C) 500 mg tab(s) (VITAMIN C) - docusate sodium 100 mg cap(s) (COLACE) - senna 17.2 mg tab(s) (SENOKOT) - aspirin, enteric coated 81 mg tab(s) - LORazepam 0.5 mg tab(s) (ATIVAN) - rosuvastatin 10 mg tab(s) (CRESTOR) - hydroCHLOROthiazide 12.5 mg tab(s) - trospium 20 mg tab(s) (SANCTURA) - levothyroxine 150 mcg (SYNTHROID) - levothyroxine 100 mcg tab(s) (SYNTHROID) Problem List As Of Date 07/23/2023 Noted Resolved Polymyalgia Rheumatica [M35.3] 04/18/2000 06/14/2009 HEMATURIA [599.7] 04/18/2000 Edema [R60.9] 04/18/2000 08/30/2017 Lump or mass in breast [N63.0] 04/18/2000 09/01/2014 Acquired hypothyroidism [E03.9] Venous insufficiency [I87.2] 04/18/2007 History of diverticulitis [Z87.19] 11/13/2007 PERS HX ALLERGY TO LATEX [Z91.040] 12/10/2007 Benign neoplasm of breast [D24.9] 08/30/2017 Disorder of Bone and Cartilage, Unspecified [M8* 06/14/2009 Malignant neoplasm of (more content not included)... Normal [facility] ECG COMPLETEon 07-23-2023 ECG COMPLETE Ventricular Rate : 7 2 BPM Atrial Rate : 72 BPM P-R Interval : 188 ms QRS Duration : 100 ms Q-T Interval : 404 ms QTC Calculation(Bazett) : 442 ms Calculated P Linden : 73 degrees Calculated R Linden : 70 degrees Calculated T Linden : 65 degrees NORMAL SINUS RHYTHM NORMAL ECG WHEN COMPARED WITH ECG OF 09-Jan-2016 19:04, NO SIGNIFICANT CHANGE WAS FOUND Confirmed by Marcos REEVES SUSHIL ([id number]) on 08/01/2023 8:06:43 PM NAME : IND[place]NA MOSQUERA PID : [id number] : 1940 Gender : Female Race : ORD : [id number] Procedure Date : Jul 23 2023 12:18:29 Edit Date : Aug 01 2023 20:06:45 Diagnosis: NORMAL SINUS RHYTHM NORMAL ECG WHEN COMPARED WITH ECG OF 09-Jan-2016 19:04, NO SIGNIFICANT CHANGE WAS FOUND Confirmed by Marcos REEEVS SUSHIL ([id number]) on 08/01/2023 8:06:43 PM Test Reason : Arrhythmia Location : 22 : 2E 280 Overread By : Marcos REEVES SUSHIL Edited By : Marcos REEVES SUSHIL Referred By : , Acquired by : [id number], [facility] 07-23-2023 [facility] ID: [id number] Author: ZAY ALTAMIRANO APRN.CNP Service: Critical Care Author Type: Nurse Practitioner Type: Chg in Clinical Condition Filed: 07/23/2023 12:50 Note Text: EMERGENCY RESPONSE TEAM Rapid Response Date of MET Page: July 23, 2023 Time of MET Page: 1205 Requesting Provider: PT and bedside nursing SUMMARY DIAGNOSIS, ASSESSMENT and RECOMMENDATIONS 1205 INFORMATION ARCHITECT initiated for syncopal episode. Patient working with PT and while ambulating began having acute pain and nausea. PT returned to bed and had brief episode where she went unconscious and started shaking. HOB put down and VS checked. PT states they deferred visit earlier this AM as a result of hypotension (vitals reviewed in flowsheet, lowest BP 111/56, HR 55) On my arrival, patient in trendelenburg with SBP in 180s. BG checked to be 88. Patient AOX3. No focal neurologic deficits. Patient able to recall event in its entirety stating that she got up and while walking began to have intense knee pain (rating it 9.5/10), and subsequently became nauseous. States I knew I was going to pass out. Denies CP, SOB, palpitations, abdominal pain, N/V, headache, vision changes, numbness or tingling in extremities. Patient did not fall, event was witnessed, no head injury or traumatic injury. Patient states she feels back to normal, denies pain at this time. Syncope- suspect vasovagal 2/2 pain and Nausea vs orthostatic hypotension. Patient not on telemetry, unable to rule out arrhythmias. Patient hypertensive on subsequent vital checks. -STAT EKG -BMP and CBC to evaluate for bleeding (no acute signs, not tachycardic, dressing clean dry and intact) -place on telemetry -defer further workup for syncope to primary team (I.e. imaging of carotids, echo) -consider cards consult if reoccurs -Discussed with primary MARY at bedside. Status: Stable PLAN, DISPOSITION and OUTCOME Responded to therapy, remains on current unit under care of: Dr. Reeves and Dr. Jefferson History of Present Illness: This is a 83 yo F with PMH RA, OA, Overactive bladder, Hypothyroidism, HTN, HLD who is POD #2 from total R knee arthroplasty with Dr. Jefferson. 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 Blaine Duron Unspecified hypothyroidism Urge incontinence 2009 Urgency of urination 2009 Vertigo , PAST SURGICAL HISTORY Procedure Laterality Date ANESTH DIAGNOSTIC ARTHROSCOPIC PROC KNEE JOINT right ARTHRP ACETBLR/PROX FEM PROSTC AGRFT/ALGRFT Left 01/02/2016 Hip replacement, total BIOPSY BREAST OPEN INCISIONAL Bx of breast, incisional BREAST BIOPSY CORE 07/13/2006 U/S needle core upper mid right breast CARPAL TUNNEL 09/2010 Dr Tello CHOLECYSTECTOMY lap COLECTOMY PARTIAL W/ANASTOMOSIS 11/2007 Laparoscopic Sigmoid colectomy for diverticulitis COLONOSCOPY FLX DX W/COLLJ SPEC WHEN PFRMD 03/12/2002 Colonoscopy COLONOSCOPY FLX DX W/COLLJ SPEC WHEN PFRMD 01/21/2009 Colonoscopy; Stricture dilated at colectomy site IMPLANT MESH OPN HERNIA RPR/DEBRIDEMENT CLOSURE 04/02/2011 PAST SURGICAL HISTORY OF 10/01/2006 LARISA PROCEDURE DONE ON FACE FOR SQUAMEOUS CELL CA, PAST SURGICAL HISTORY OF 03/2007 Removal of squamous cell carcinoma from clavicle and left leg by PAST SURGICAL HISTORY OF 04/19/2004 excision from R ear PAST SURGICAL HISTORY OF 06/11/2007 cystoscopy/retrograde PAST SURGICAL HISTORY OF 03/2013 titanium plate removed from left thumb PAST SURGICAL HISTORY OF 11/2014 laminectomy PAST SURGICAL HISTORY OF Left 05/16/2015 Total Left Knee PAST SURGICAL HISTORY OF 07/2015 laminectomy PAST SURGICAL HISTORY OF Right 09/16/2018 MOHS procedure, right cheek - [employer] [place] REPAIR FIRST ABDOMINAL WALL HERNIA 04/02/2011 SIGMOIDOSCOPY FLX DX W/COLLJ SPEC BR/WA IF PFRMD 06/01/2010 TOTAL HIP REPLACEMENT Right 02/13/2021 , Active Hospital Problems Diagnosis S/P total knee arthroplasty, right MEDICATIONS Current Facility-Administered Medications Medication Dose Route Frequency scopolamine - VERIFY patch OTHER q 8 H NaCl 0.9% iv flush bag 20 mL INTRAVENOUS PRN lactated ringers iv infusion 75 mL/hr INTRAVENOUS CONTINUOUS oxyCODONE IR 5-10 mg tab(s) (ROXICODONE) 5-10 mg ORAL q 4 H PRN HYDROmorphone 0.2 mg injec (more content not included)... Normal [facility] THERAPY NTon 07-23-2023 THERAPY NT HNO ID: [id number] Author: CARLTON KNOX PT Service: Physical Therapy Author Type: Physical Therapist Type: Therapy (PT/OT/Speech/Resp) Filed: 07/23/2023 16:37 Note Text: Summary: PT treatment Physical Therapy Treatment Summary SERVICE DATE: 07/23/2023 SERVICE TIME: 1520 to 1605 ROOM: [place] [address] PT 6 Clicks Score: 18 Total Joint Replacement Discharge Readiness: Pending Physical Therapy Clearance DISCHARGE RECOMMENDATIONS Home PT Recommended Discharge Disposition Comments: to increase ROM/strength to operative leg/knee and progress safe functional mobility in the home Recommended Discharge Equipment: No equipment needs anticipated ASSESSMENT Response to Therapy Interventions: Good Participation in Activities, Improved Tolerance for Activity, On-Track to Achieve Discharge Goals, Pain, Requires Additional Time to Complete Activities, Requires Encouragement to Complete Activities, Slow Progression with Functional Activities/Skills patient continues with expected limitations post right TKA including pain, decrease ROM/strength and impaired functional mobility. approached with coordination with RN with change in medication and monitoring vitals with onset of syncopal event and progresses to require dependent transfer back to bed. heavy cues initially for improved use of walker/step to pattern to decrease pain. demonstrates safe mobility however limited tolerance due to syncopal evel. will continue towards home going goals as patient tolerates. PRECAUTIONS Fall Risk, Lines/Tubes/Drains, Total Knee Replacement, Weight Bearing Restrictions, Bed/Chair Alarm AROM only Right Lower Extremity Weight Bearing Status: WBAT CURRENT HOSPITAL COURSE s/p right TKA 07/22/23 Relevant Past Medical History: L total hip 2016, L TKR, R total hip, polymyalgia rheumatica, urge incontinence, anxiety, HTN, DVT, RA,diverticulosis of colon, dyslipidemia, edema, vertigo, s/p laminectomy HOME LIVING Patient Lives With: Spouse Assistance Available: 24-Hour (for 1st 5 days from daughter, spouse very limited in amount of assist) Entry To Home: Elevator Number Of Stairs To Bed/Bath: 0 - apartment Tub/Shower Type: walk in shower with shower chair Laundry: laundry in apartment Equipment Owned: Walker- Wheeled, Shower Chair, Elevated Toilet Seat, Cane PRIOR FUNCTIONAL LEVEL Within Functional Limits Ind with amb without device, ADL/IADL, +drives and denies falls. SUBJECTIVE patient agreeable to PT and cleared by RN. denies lightheadedness/dizzine ss/nausea at start with progression of pain/nausea. THERAPY DIAGNOSIS Difficulty walking-musculoskeletal TREATMENT INTERVENTIONS Therapeutic Activity (67312), Gait Training (95986) Timed Code Treatment (minutes): 38 Skilled Treatment Time (minutes): 45 TRAINING AND EDUCATION PROVIDED Anatomy and Impact on Deficits, Assistive Device Use, Bed Mobility, Benefits of In-Hospital Mobility, Discharge Planning, Disease Specific Education, Equipment, Exercise Program, Expected Functional Level, Falls Prevention, Gait Pattern, Reduction of Deviations, Handout Issued, Home Set-up/Modifications, Modalities, Patient Exercise/Therapy Program Support Needs, Positioning, Precautions/Restriction s, Pre-gait Activities, Role of Physical Therapy, Standing Balance, Transfers, Treatment Protocol, Edema Management, Energy Conservation, Pain Neuroscience THERAPEUTIC SKILLS USED Activity Dosing, Assessment of Tolerance Including Vitals Response to Activity, Cues for Sequencing/Proper Technique for Activity, Cuing Verbal, Management of Critical Lines, Tubes and/or Drains, Movement Facilitation, Muscle Activation Facilitation, Physical Assist, Postural Alignment Correction, Teach-Back for Education, Cuing Tactile, Cuing Visual, Task Analysis Learning FUNCTIONAL STATUS Bed Mobility Supine To Sit: Stand By Assistance Sit to Supine: Maximal Assistance, Additional Information A x 3, dependent transfer after syncopal event Scooting: Stand By Assistance, Additional Information in sitting fwd to EOB. at end of session max A x 2 up in bed, limited patient assist due to nausea Transfers Bed to Chair Total Assistance, Additional Information Bed To Chair Transfer Type: Stand Pivot Bed To Chair Transfer Equipment: (none) A x 2-3, dependent stand pivot transfer chair to bed after syncopal event Gait Contact Guard Assistance, Additional Information reinforced recommendation for FWW and step to pattern with increased UE use of UE to unload right LE with step to pattern. denies lightheadedness/dizzine ss/nausea at beginning of session. quickly becomes dizziness/nausea and sits suddenly in near by chair and notes she can feel that she is going to pass out. Gait Device: Wheeled Walker General Nohemy (more content not included)... Normal [facility] THERAPY NT HNO ID: [id number] Author: CARLTON KNOX PT Service: Physical Therapy Author Type: Physical Therapist Type: Therapy (PT/OT/Speech/Resp) Filed: 07/23/2023 13:48 Note Text: Summary: PT eval Physical Therapy Evaluation Summary SERVICE DATE: 07/23/2023 SERVICE TIME: 1133 to 1211 ROOM: [id number]- PT 6 Clicks Score: 18 Total Joint Replacement Discharge Readiness: Pending Physical Therapy Clearance DISCHARGE RECOMMENDATIONS Home PT Recommended Discharge Disposition Comments: to increase ROM/strength to operative leg/knee and progress safe functional mobility in the home Recommended Discharge Equipment: No equipment needs anticipated ASSESSMENT Response to Therapy Interventions: Good Participation in Activities, Improved Tolerance for Activity, On-Track to Achieve Discharge Goals, Pain, Requires Additional Time to Complete Activities, Requires Encouragement to Complete Activities, Slow Progression with Functional Activities/Skills Patient presents with expected limitations post TKA including pain and decreased ROM/strength operative leg and impaired functional mobility. Patient AANDO x 3 and demonstrates good follow through with cues and education and is receptive to education. Patient ind at baseline wihtout device and CGA to SBA with FWW with amb with limited distance due to pain/nausea/syncope with noted decrease tolerance and need for rapid response team. Patient would benefit from skilled PT in acute setting to continue to progress ROM/strength and functional mobility to support patient goal of safe home going. due to syncopal event - monitor tolerance/vitals PRECAUTIONS Fall Risk, Lines/Tubes/Drains, Total Knee Replacement, Weight Bearing Restrictions, Bed/Chair Alarm AROM only Right Lower Extremity Weight Bearing Status: WBAT CURRENT HOSPITAL COURSE s/p right TKA 07/22/23 Relevant Past Medical History: L total hip 2016, L TKR, R total hip, polymyalgia rheumatica, urge incontinence, anxiety, HTN, DVT, RA,diverticulosis of colon, dyslipidemia, edema, vertigo, s/p laminectomy HOME LIVING Patient Lives With: Spouse Assistance Available: 24-Hour (for 1st 5 days from daughter, spouse very limited in amount of assist) Entry To Home: Elevator Number Of Stairs To Bed/Bath: 0 - apartment Tub/Shower Type: walk in shower with shower chair Laundry: laundry in apartment Equipment Owned: Walker- Wheeled, Shower Chair, Elevated Toilet Seat, Cane PRIOR FUNCTIONAL LEVEL Within Functional Limits Ind with amb without device, ADL/IADL, +drives and denies falls. SUBJECTIVE patient agreeable to PT and cleared by RN. patient denied dizziness throughout however reports nausea after amb and need to sit suddenly. THERAPY DIAGNOSIS Difficulty walking-musculoskeletal TREATMENT INTERVENTIONS Evaluation, Therapeutic Activity (12769), Gait Training (16671) Timed Code Treatment (minutes): 23 Skilled Treatment Time (minutes): 38 TRAINING AND EDUCATION PROVIDED Anatomy and Impact on Deficits, Assistive Device Use, Bed Mobility, Benefits of In-Hospital Mobility, Discharge Planning, Disease Specific Education, Equipment, Exercise Program, Expected Functional Level, Falls Prevention, Gait Pattern, Reduction of Deviations, Handout Issued, Home Set-up/Modifications, Modalities, Patient Exercise/Therapy Program Support Needs, Positioning, Precautions/Restriction s, Pre-gait Activities, Role of Physical Therapy, Standing Balance, Transfers, Treatment Protocol, Edema Management, Energy Conservation, Pain Neuroscience THERAPEUTIC SKILLS USED Activity Dosing, Assessment of Tolerance Including Vitals Response to Activity, Cues for Sequencing/Proper Technique for Activity, Cuing Verbal, Management of Critical Lines, Tubes and/or Drains, Movement Facilitation, Muscle Activation Facilitation, Physical Assist, Postural Alignment Correction, Teach-Back for Education, Cuing Tactile, Cuing Visual, Task Analysis Learning FUNCTIONAL STATUS Bed Mobility Supine To Sit: Stand By Assistance, Additional Information Cues for technique Sit to Supine: Maximal Assistance, Additional Information A x 3, dependent transfer after syncopal event Scooting: Contact Guard Assistance in sitting fwd/retro at EOB Transfers Bed to Chair Total Assistance, Additional Information Bed To Chair Transfer Type: Stand Pivot Bed To Chair Transfer Equipment: (none) A x 2-3, dependent stand pivot transfer chair to bed after syncopal event Gait Contact Guard Assistance, Additional Information recommendation for FWW and educaiton for adjusting height appropriately and rationale. reinforced WB status. Recommendation for step to pattern favoring operative leg with increased UE use for pain/weakness. cues for walker negotiation/sequencing/ distan (more content not included)... [facility] THERAPY NT HNO ID: [id number] Author: CHERRY YA OTR/L Service: Occupational Therapy Author Type: Occupational Therapist Type: Therapy (PT/OT/Speech/Resp) Filed: 07/23/2023 10:06 Note Text: Summary: OT evaluation Occupational Therapy Evaluation Summary SERVICE DATE: 07/23/2023 SERVICE TIME: 909 to 955 ROOM: [id number] OT 6 Clicks Score: 20 DISCHARGE RECOMMENDATIONS Home OT Recommended Discharge Disposition Comments: for home safety evaluation and follow through with recommendations Anticipated Discharge Needs: Physical Assist at Home Physical Assist at Home for: Cleaning, Laundry, Transfers, Meals, Medication Management, Safety, Self Care ASSESSMENT Response to Therapy Interventions: Good Participation in Activities, Labile Vital Signs, Low Activity Tolerance, Pain, Requires Additional Time to Complete Activities Pt willing and motivated to participate in all tasks. Pt is at SBA/CGA for bed mobility and transfers. Anticipate pt will require Alli for RLE self cares. Pt reports significant dizziness with standing activity. Vital signs monitored and RN notified. PRECAUTIONS Bed/Chair Alarm, Fall Risk, Total Knee Replacement CURRENT HOSPITAL COURSE Pt admitted 07/22/23 with right total knee replacement Relevant Past Medical History: L total hip 2016, L TKR, R total hip, polymyalgia rheumatica, urge incontinence, anxiety, HTN, DVT, RA, HOME LIVING Patient Lives With: Spouse Assistance Available: 24-Hour (for 1st 5 days from daughter, spouse very limited in amount of assist) Entry To Home: Elevator Tub/Shower Type: walk in shower with shower chair Laundry: laundry in apartment Equipment Owned: Walker- Wheeled, Shower Chair, Elevated Toilet Seat, Cane PRIOR FUNCTIONAL LEVEL Within Functional Limits Per patient, independent with ADLS, IADLS, no use of assistive device. +driving Baseline Cognition: Oriented to self, Oriented to place, Oriented to time, Oriented to situation SUBJECTIVE This is my 4th and last joint replacement COGNITION Orientation Deficits: (AO x4) THERAPY DIAGNOSIS Decreased activities of daily living (ADL) TREATMENT INTERVENTIONS Evaluation, Therapeutic Activity (07932), Self [facility] Management (99913) Timed Code Treatment (minutes): 30 Skilled Treatment Time (minutes): 46 TRAINING AND EDUCATION PROVIDED Activity Adaptation/Compensatory Strategies, Adaptive Equipment/DME, Assistive Device Use, Bed Mobility, Benefits of In-Hospital Mobility, Discharge Planning, Disease Specific Education, Expected Functional Level, Lower Extremity Dressing, Pain Management, Positioning, Precautions/Restriction s, Role of Occupational Therapy, Sitting Balance to Improve [place] with ADLs/Self-Care, Standing Balance to Improve [place] with ADLs/Self-Care, Transfer - Sit to Stand, Transfer - Shower, Toileting THERAPEUTIC SKILLS USED Assessment of Tolerance Including Vitals Response to Activity, Cues for Sequencing/Proper Technique for Activity, Cuing Tactile, Cuing Verbal, Cuing Visual, Physical Assist, Therapeutic Use of Self FUNCTIONAL STATUS Activities of Daily Living Assist Level Additional Information Feeding Independent Grooming Contact Guard Assistance, Additional Information for safety in standing Bathing Upper Body Stand By Assistance Bathing Lower Body Minimal Assistance, Additional Information to assist with RLE Dressing Upper Body Stand By Assistance Dressing Lower Body Minimal Assistance, Additional Information pt able to simulate underwear and pants, anticipate assist with R sock and shoe Toileting Contact Guard Assistance Mobility Assist Level Additional Information Bed Mobility Supine To Sit: Stand By Assistance Sit To Supine: Stand By Assistance Sit to Stand Contact Guard Assistance Stand to Sit Contact Guard Assistance Bed to Chair Toilet/Commode Shower Functional Mobility GOALS Patient will demonstrate progress with self-care, cognitive and/or coping needs identified to allow safe discharge to home with available support and/or physical assistance. Progress Toward Goals: Progressing as expected Rehab Potential: Good PLAN OT Frequency: 3 Times Per Week Treatment Interventions: Education, Self Care/Home Management, Functional Mobility Training Plan for Next Visit: Bathing Training, Dressing Training, Chair/Commode Transfer Training, Sit to Stand Transfers, Toileting Instruction SIGNATURE: Cherry Ya OTR/L PATIENT NAME: [place] Mosquera DATE: July 23, 2023 TIME: 10:06 AM [facility] ANES POSTPROC EVALon 024 ANE POSTPROC EVAL HNO ID: [id number] Author: LACI WATERMAN DO Service: Anesthesiology Author Type: Anesthesiologist Type: Anesthesia Postprocedure Evaluation Filed: 07/22/2023 17:23 Note Text: POST ANESTHESIA EVALUATION NOTE : 1940 Procedure Summary Date: 07/22/23 Room / Location: [place] [address] / IN OR Anesthesia Start: 1210 Anesthesia Stop: 1412 Procedure: ROBOTIC ASSISTED TOTAL KNEE ARTHROPLASTY (Right: Knee) Diagnosis: Primary osteoarthritis of right knee Chronic pain of right knee (Primary osteoarthritis of right knee [M17.11]) (Chronic pain of right knee [M25.561, G89.29]) Surgeons: Sabina Jefferson MD Responsible Provider: Laci Waterman DO Anesthesia Type: spinal ASA Status: 3 Anesthesia Type: spinal Last Vitals Vitals Value Taken Time BP 149/62 07/22/23 1550 Temp 36.7 ?C (98 ?F) 07/22/23 1550 Pulse 68 07/22/23 1550 Resp 16 07/22/23 1550 SpO2 97 % 07/22/23 1550 Post Anesthesia Patient Status Patient Evaluation: PACU. PACU/ICU Patient Condition: stable. Anticipated Disposition: inpatient floor planned admission. Neurological Status: aware and responsive. Pulmonary Status: breathing comfortably on supplemental oxygen Airway Control: returned to baseline unsupported. Cardiovascular Status: stable. Pain Management: clinically adequate - multimodal analgesia pain management approach Postoperative Hydration: acceptable. Intraoperative Events: no significant anesthesia events Post Operative Nausea/Vomiting Status: no significant post operative nausea or vomiting Recommendation: continue current plan of care and further care per PACU/ICU/floor team. Anesthesia Observations No Documentation SIGNATURE: Laci Waterman DO PATIENT NAME: [place] Mosquera DATE: July 22, 2023 TIME: 5:23 PM CSN: [id number] [facility] ANES PRE-OPon 07-22-2023 ANES PRE-OP HNO ID: [id number] Author: LACI WATERMAN DO Service: Anesthesiology Author Type: Anesthesiologist Type: Anesthesia Preprocedure Evaluation Filed: 07/22/2023 11:38 Note Text: ANESTHESIOLOGY DAY OF SURGERY NOTE : 1940 Procedure Information Date/Time: 07/22/231229 Procedure: ROBOTIC ASSISTED TOTAL KNEE ARTHROPLASTY (Right: Knee) Location: IN OR / IN OR Surgeons: Sabina Jefferson MD Estimated body mass index is 23.05 kg/m? as calculated from the following: Height as of this encounter: 154.9 cm (5' 1 ). Weight as of this encounter: 55.3 kg (122 lb). Most recent hematocrit and potassium results: Hematocrit 39.7 06/22/2023 Potassium 5.0 07/25/2022 Relevant Problems CARDIO (+) Venous insufficiency ENDO (+) Acquired hypothyroidism NEURO-PSYCH (+) History of DVT of lower extremity (+) History of diverticulitis (+) History of transient ischemic attack (TIA) Other (+) Other specified rheumatoid arthritis, multiple sites (HCC) (+) Seropositive rheumatoid arthritis (HCC) I - PHYSICAL EVALUATION AIRWAY Patient intubated: No. Tracheostomy tube not present Mallampati: II. TM distance: >3 FB. Neck ROM: full ROM without neurological symptoms. Mouth opening: adequate. Short neck: no. Thick neck: no DENTAL Dental findings: teeth intact. II - ANESTHESIA PLAN ASA Score: 3 Anesthetic Plan: spinal NPO Status: adequate Beta Armen Monitoring Plan Monitoring plan: standard ASA. Post Procedure Analgesic Plan Postoperative analgesic plan: parenteral or oral opioids, multimodal analgesia, per surgical service and peripheral nerve block. Informed Consent Anesthetic risks, benefits, alternatives, personnel and consent discussed: yes. Patient / Responsible Constitution Party agrees to proceed: yes Patient / Surrogate agrees to blood products: Yes DNR status not reviewed with patient and/or family prior to surgery. Significant changes in the patient condition since the History and Physical, not otherwise documented in primary service progress note: no. Potential Anesthesia issues that may suggest increased risk of complications or contraindication to planned procedure: none. Discussed the possibility of lip / dental damage: yes Vitals Value Taken Time BP 162/69 07/22/23 1133 Pulse 68 07/22/23 1136 Resp 30 07/22/23 1136 Temp 36.8 ?C (98.2 ?F) 07/22/23 1059 SpO2 99 % 07/22/23 1136 Vitals shown include unfiled device data. Facility-Administered Medications as of 07/22/2023 Medication Dose Route Frequency - lidocaine (PF) 10 mg/mL (1 %) 1-2 mg injection (XYLOCAINE) 0.1-0.2 mL INTRADERMAL PRN - lactated ringers iv infusion 5-30 mL/hr INTRAVENOUS CONTINUOUS - NaCl 0.9% iv flush bag 20 mL INTRAVENOUS PRN - ceFAZolin iv piggyback 2 g in D5W (iso-osmotic) 100 mL (ANCEF) 2 g INTRAVENOUS Pre-Op Once - tranexamic acid 1,000 mg in NaCl 0.9% 100 mL (CYKLOKAPRON) 1,000 mg INTRAVENOUS Pre-Op Once - tranexamic acid 1,000 mg in NaCl 0.9% 100 mL (CYKLOKAPRON) 1,000 mg INTRAVENOUS ONCE - [COMPLETED] acetaminophen 1,000 mg tab(s) (TYLENOL) 1,000 mg ORAL Pre-Op Once - [COMPLETED] midazolam (PF) 2 mg injection (VERSED) 2 mg INTRAVENOUS Pre-Op Once - scopolamine 1 mg over 3 days 1 Patch (TRANSDERM-SCOP) 1 Patch TRANSDERMAL ONCE - [COMPLETED] celecoxib 200 mg cap(s) (CeleBREX) 200 mg ORAL Pre-Op Once Outpatient Medications as of 07/22/2023 Medication Sig - LORazepam (ATIVAN) 0.5 mg Take 1 tablet by mouth daily at bedtime for 90 days. - oxybutynin (DITROPAN) 5 mg tablet Take 1 tablet by mouth two times a day. - levothyroxine (SYNTHROID) 100 mcg tablet TAKE 1 AND 1/2 TABLETS ON SATURDAY AND SATURDAY ONLY, TAKE 1 TABLET REST OF DAYS - rosuvastatin (CRESTOR) 10 mg tablet TAKE 1 TABLET AT BEDTIME - meloxicam (MOBIC) 7.5 mg tablet DAILY - leucovorin (LEUCOVORIN) 5 mg tablet TAKE 1 TABLET EVERY SATURDAY - hydroCHLOROthiazide 12.5 mg capsule Take 1 capsule by mouth once daily as needed (vertigo). As needed for vertigo - abatacept (ORENCIA) 250 mg injection Inject intravenously once every month. - aspirin, enteric coated (ASPIRIN, ENTERIC COATED) 81 mg EC tablet Take 1 tablet by mouth twice daily for 27 days. - multivitamin tablet Take 1 tablet by mouth once daily. - cholecalciferol (VITAMIN D3) 1,000 unit tab Take 1,000 Units by mouth once daily. I have interviewed and examined the patient. I have reviewed the medical record and/or the pre-anesthesia evaluation, pertinent labs, and test results. This contains updated information obtained within 48 hours of Surgery/Procedure. SIGNATURE: Laci Waterman DO PATIENT NAME: [place] Mosquera DATE: July 22, 2023 TIME: 11:37 AM CSN: [id number] [facility] CONSULTon 07-22-2023 CONSULT HNO ID: [id number] Author: KIRT REEVES MD Service: General Internal Medicine Author Type: Physician Type: Consults Filed: 08/02/2023 19:07 Note Text: [facility]- Consultation [place] MOSQUER[place] : 1940 AGE: 83 SEX: F ACCTNUM: [id number] [facility]: [facility] LOCATION: [facility] ATTENDING PHYSICIAN: SABINA JEFFERSON DATE OF SERVICE: 07/22/2023 TIME OF SERVICE: 04:48 PM REASON FOR CONSULTATION: Postop medical management. HISTORY OF PRESENT ILLNESS: This is an 83-year-old female whose significant medical history includes osteoarthritis, hypothyroidism, provoked DVTs, TIA, hyperlipidemia, insomnia, incontinence. Patient underwent elective right total knee arthroplasty under spinal anesthesia. Patient had uneventful intraoperative course. Estimated blood loss 50 mL. During initial evaluation, patient is alert and oriented, continued to have numbness to the lower extremities. No nausea, lightheadedness, dizziness, shortness of breath, or palpitation. PAST MEDICAL HISTORY: As mentioned above. PAST SURGICAL HISTORY: Include breast biopsies, cholecystectomy, right total hip replacement, and upper and lower endoscopies. SOCIAL HISTORY: Does not smoke. She drinks alcohol, 1 standard drink of alcohol per week. MEDICATIONS: Her current home medication list reviewed. ALLERGIES: To Lipitor, caused myalgia ; Cipro, diarrhea; Flagyl, diarrhea; Ultram, she felt palpitation. REVIEW OF SYSTEMS: HEENT/Neck: History of remote TIA and vertigo intermittently. No history of CVA. No history of glaucoma or seizure disorders. No history of chronic cough, wheezing, dyspnea with exertion. No history of asthma, COPD, or obstructive sleep apnea. No history of coronary artery disease or congestive heart failure. Does have a history of hypertension, hyperlipidemia, and provoked DVT of the feet. No history of bleeding, peptic ulcer disease, hepatitis, colitis. Good appetite. Regular bowel movement. No melenic stools. No history of chronic dysuria, hematuria, CKD, renal calculi. History of overactive bladder. History of hypothyroidism. No history of diabetes. No paresthesia of the feet. . She is using DMARDs for RA. PHYSICAL EXAM: General: Elderly female. Alert and oriented. HEENT: Sclerae nonicteric. Oral mucosa slight dry. Neck: No thyromegaly appreciated. No carotid bruit heard. No lymphadenopathy of the neck. Lungs: Clear to auscultation bilaterally. Cardiovascular: S1, S2. Regular rhythm. No murmur, gallop, or rub appreciated. Abdomen: Soft, nondistended, nontender. Bowel sounds present. No hepatosplenomegaly. Lower Extremities: No ankle edema noted. ASSESSMENT AND PLAN: 1. Osteoarthritis, status post right total knee arthroplasty. 2. Rheumatoid arthritis continue methotrexate. 3. Leucovorin start after cleared by the practice assistant. 4. Overactive bladder. Continue Ditropan. 5. Hypothyroidism. Continue levothyroxine. 6. Hypertension, continue hydrochlorothiazide. 7. Hyperlipidemia. Continue statins. 8. Hold other medications for now. Thank you very much for the kind referral. Continue to follow her while she is in the hospital. Kirt Reeves M.D. Internal Medicine YAMILET:[id number] /[id number] [facility] NURSING PROGon 07-22-2023 NURSING PRO HNO ID: [id number] Author: MERLIN FRAZIER, RN Service: ? Author Type: Registered Nurse Type: Nursing Progress Note Filed: 07/22/2023 11:53 Note Text: Dr. Waterman at bedside for Right addutor nerve block. RN at bedside, pt monitored throughout, BP 151/67 Pulse 66 Temp 36.8 ?C (98.2 ?F) (Temporal Artery) Resp 28 Ht 154.9 cm (5' 1 ) Wt 55.3 kg (122 lb) SpO2 95% BMI 23.05 kg/m? .Pt tolerated procedure without difficulty. [facility] OPERATIVE NOon 07-22-2023 OPERATIVE NO HNO ID: [id number] Author: SABINA JEFFERSON MD Service: Orthopaedic Surgery Author Type: Physician Type: Operative Report Filed: 07/22/2023 13:46 Note Text: Operative Report PATIENT NAME: [place] Mosquera CSN: [id number] LOG ID: [id number] Surgery Date: 07/22/2023 Surgeon(s) and Occ Therapy Asst(s): Mando Giron AUTO BODY BUILDER APPRENTICE - Consumer Insight Analyst Surgeon(s) and Role: * Sabina Jefferson MD - Primary * Sukh Meneses MD - Fellow 22 modifier--none No qualified orthopedic resident available BMI: Estimated body mass index is 23.05 kg/m? as calculated from the following: Height as of this encounter: 154.9 cm (5' 1 ). Weight as of this encounter: 55.3 kg (122 lb). Procedure(s): Procedure(s) (LRB): ROBOTIC ASSISTED TOTAL KNEE ARTHROPLASTY (Right) Anesthesia: Spinal Incision Start: 12:46 PM Incision Stop: approx 2:10 PM Attestation: I was present for and performed all critical portions of the case. entry level administrative assistant was necessary for safe patient positioning, sterile prepping and draping, assistance, positioning and protection, soft tissue retraction, protection of vital structures and suture management during the case, and superficial wound closure. Also critical for safe transit to the recovery room in stable condition. Preop Diagnosis: Pre-Op Diagnosis Codes: * Primary osteoarthritis of right knee [M17.11] * Chronic pain of right knee [M25.561, G89.29] Postop Diagnosis: Same as Pre-Op Diagnosis Codes: * Primary osteoarthritis of right knee [M17.11] * Chronic pain of right knee [M25.561, G89.29] Implants: Chrystal triathlon knee, cemented 29 patella 2 femur, R, CR All poly tibia, 2 x 11 mm Problem List: ACTIVE PROBLEM LIST Hematuria Acquired Hypothyroidism Venous Insufficiency History of Diverticulitis Allergy to Latex Malignant Neoplasm of Skin Diffuse Cystic Mastopathy Digital Mucous Cyst Dystrophia Unguis Mediana Canaliformis Postmenopausal Atrophic Vaginitis Urgency of Urination Urge Incontinence Screening for Malignant Neoplasm of The Cervix Family History of Malignant Neoplasm of Breast Encounter for Long-Term (Current) Use of Medications Backache, Unspecified Hematuria Fibrocystic Breast Thoracic Or Lumbosacral Neuritis Or Radiculitis, Unspecified Facet Hypertrophy of Lumbar Region Lumbar Spondylosis Lumbar Radiculopathy 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) Lumbar Stenosis Chronic Pain of Right Knee Status Post Total Left Knee Replacement Absolute Anemia Sciatica Other Specified Rheumatoid Arthritis, Multiple Sites (Hcc) Anxiety Neurosis Primary Osteoarthritis of Left Hip Osteopenia of Multiple Sites S/P Total Knee Replacement Using Cement, Left Primary Osteoarthritis of Right Hip Mixed Hyperlipidemia History of Transient Ischemic Attack (Tia) History of Dvt of Lower Extremity Insomnia Status Post Thr (Total Hip Replacement) Hypocalcemia Tendinitis of Left Hip Flexor Trochanteric Bursitis of Both Hips OPERATIVE INDICATIONS: The patient has a long history of progressive right knee pain, arthritis, and degeneration. Non-operative treatment has been attempted but has not improved or controlled the symptoms and pain that occurs during normal daily activities. Knee motion has also become limited and is restricting the patient. Total knee arthroplasty was recommended. The risks, benefits and potential complications of the arthroplasty surgery were discussed with the patient in detail. Specific details of the surgical procedure, hospitalization, recovery, rehabilitation, and long-term precautions were also presented. Pre-operative teaching was provided. Implant/prosthesis selection wasoutlined, and the many options available were explained; the final choice will be made at the time of the procedure to match the anatomy and condition of the bone, ligaments, tendons, and muscles. The patient was evaluated medically for pre-operative optimization, and risk assessment. Alexandra-operative blood management and the potential for blood transfusion were discussed with risks and options clearly outlined. Understanding of all topics was conveyed to me by the patient pre-operatively, and patient consent was given to proceed with the right total knee replacement, robotically assisted. OPERATIVE PROCEDURE: The patient was identified and brought into the Operating Room by the anesthesia and nursing teams. Anesthesia was successfully performed. The patient was then positioned supine on the operating room table, and all bony prominences were padded. Intravenous antibiotic prophylaxis dosing was confirmed. A tourniquet was applied to the upper thigh. A full knee exam was done after anesthesia was in full effect. The patient had a 4 degree varus deformity per robotic measurements. Robotic measurements demonstrated a flexion contracture of (RECURVATUM 8) degrees. Pre-operative flexion w (more content not included)... [facility] 07-16-2023 [facility] Telephone (ORMDNA) [place] MOSQUERA ([id number]) 1940 F NFR Date Time Provider Department 07/16/23 SABINA JEFFERSON During your visit today, we recorded the following information about you: Earline Gonzalez 07/16/2023 1:08 PM Signed Patient has tried several times to get in to the [employer] loop and has failed. She tried the link you sent today and has just given up. Not sure what you would want her to do at this point. She can be reached at [phone]. Earline Plummer [facility] Association[facility]ira Menjivar, RN 07/17/2023 11:52 AM Signed Re-entered patients information into the [employer] Loop. Called and let her know if she would like to retry, but also let her know she isn't missing too much information. Let her now that we are available [facility] [employer] [facility] or via phone if she has any questions. She verbalized understanding and stated that this is her 4th replacement, so she is comfortable not being on the Loop. Allergies As of Date: 07/16/2023 Noted Allergy Reaction LIPITOR (ATORVASTATIN) 2019 17 - Myalgia Comments: Myalgia, lethargic ADHESIVE 03/12/2011 2 - Rash Comments: bandaids and tape ANTIVIRAL DRUGS 05/22/2005 6 - Diarrhea CIPRO (CIPROFLOXACIN) 12/10/2007 6 - Diarrhea FLAGYL (METRONIDAZOLE HCL) 12/10/2007 6 - Diarrhea ULTRAM (TRAMADOL HCL) 03/07/2015 14 - Other: See Comments Comments: When taken with celexa, felt like skin was hot and had heart palpitations Date Reviewed: 07/05/2023 Reviewed by: Thalia Abarca RN - Fully Assessed Reason for Visit: Patient Question [1477] Prescriptions as of 07/17/2023 - mupirocin (BACTROBAN) 2 % ointment Apply 0.5 inch with cotton swab (Q-tip) to each nostril in the morning and evening for 5 days prior to and including day of surgery. - meloxicam (MOBIC) 7.5 mg tablet DAILY - methotrexate 2.5 mg tablet TAKE 3 TABLETS ONCE WEEKLY - LORazepam (ATIVAN) 0.5 mg Take 1 tablet by mouth daily at bedtime for 90 days. - leucovorin (LEUCOVORIN) 5 mg tablet TAKE 1 TABLET EVERY SATURDAY - oxybutynin (DITROPAN) 5 mg tablet Take 1 tablet by mouth two times a day. - levothyroxine (SYNTHROID) 100 mcg tablet TAKE 1 AND 1/2 TABLETS ON SATURDAY AND SATURDAY ONLY, TAKE 1 TABLET REST OF DAYS - hydroCHLOROthiazide 12.5 mg capsule Take 1 capsule by mouth once daily as needed (vertigo). As needed for vertigo - abatacept (ORENCIA) 250 mg injection Inject intravenously once every month. - rosuvastatin (CRESTOR) 10 mg tablet TAKE 1 TABLET AT BEDTIME - aspirin, enteric coated (ASPIRIN, ENTERIC COATED) 81 mg EC tablet Take 1 tablet by mouth twice daily for 27 days. - multivitamin tablet Take 1 tablet by mouth once daily. - cholecalciferol (VITAMIN D3) 1,000 unit tab Take 1,000 Units by mouth once daily. Problem List As Of Date 07/16/2023 Noted Resolved Polymyalgia Rheumatica [M35.3] 04/18/2000 06/14/2009 HEMATURIA [599.7] 04/18/2000 Edema [R60.9] 04/18/2000 08/30/2017 Lump or mass in breast [N63.0] 04/18/2000 09/01/2014 Acquired hypothyroidism [E03.9] Venous insufficiency [I87.2] 04/18/2007 History of diverticulitis [Z87.19] 11/13/2007 PERS HX ALLERGY TO LATEX [Z91.040] 12/10/2007 Benign neoplasm of breast [D24.9] 08/30/2017 Disorder of Bone and Cartilage, Unspecified [M8* 06/14/2009 Malignant neoplasm of skin [C44.90] Asymptomatic varicose veins [I83.90] 12/10/2007 09/01/2014 DIFFUS CYSTIC MASTOPATHY [N60.19] 04/06/2008 Digital Mucous Cyst [M67.449] 11/25/2009 Dystrophia Unguis Mediana Canaliformis [L60.9] 11/25/2009 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] 11/25/2009 08/30/2017 Actinic Damage///Sun-Damaged Skin [L57.8] 11/25/2009 09/01/2014 Solar Lentigines [L81.4] 11/25/2009 09/01/2014 Other seborrheic keratosis [L82.1] 11/25/2009 09/01/2014 Postmenopausal atrophic vaginitis [N95.2] 06/06/2010 Urgency of urination [R39.15] 06/06/2010 Urge incontinence [N39.41] 06/06/2010 Screening for malignant neoplasm of the cervix *06/06/2010 Family history of malignant neoplasm of breast *06/06/2010 Ventral hernia, unspecified, without mention of*03/09/2011 08/30/2017 Encounter for long-term (current) use of medica*05/31/2011 RA (rheumatoid arthritis) [M06.9] 05/31/2011 09/01/2014 Backache, unspecified [M54.9] 12/03/2011 Hematuria [R31.9] 06/09/2012 Fibrocystic breast [N60.19] 07/09/2013 Thoracic or lumbosacral neuritis or radiculitis*09/16/2013 Facet hypertrophy of lumbar region [M47.816] 11/03/2013 Lumbar spondylosis [M47.816] 11/03/2013 Lumbar radiculopathy [M54.16] 11/03/2013 Lumbar disc displacement without myelopathy [M5*11/03/2013 Seropositive rheumatoid arthritis (HCC) [M05.9] 10/22/2014 Encounter for long-term current use of medicati*10/22/2014 08/30/2017 Lumbar stenosis [M48.061] 11/17/2014 Rheumatoid arthritis involving both hands with *03/07/2015 04/25/2015 Chronic pain of right knee [M25.561, G89.29] 06/20/2015 Status (more content not included)... Normal [facility] CNCOon 07-07-2023 CNCO Letter Text Normal [facility] IUX08me 07-03-2023 ECG01 Ventricular Rate : 5 9 BPM Atrial Rate : 59 BPM P-R Interval : 190 ms QRS Duration : 92 ms Q-T Interval : 400 ms QTC Calculation(Bazett) : 396 ms Calculated P Linden : 80 degrees Calculated R Linden : 79 degrees Calculated T Linden : 72 degrees SINUS BRADYCARDIA OTHERWISE NORMAL ECG Confirmed by CARLINE NATH DO ([id number]) on 07/04/2023 11:04:30 AM NAME : IND[place] MOSQUERA PID : [id number] : 1940 Gender : Female Race : ORD : Procedure Date : Jul 03 2023 10:32:36 Edit Date : Jul 04 2023 11:04:35 Diagnosis: SINUS BRADYCARDIA OTHERWISE NORMAL ECG Confirmed by CARLINE NATH DO ([id number]) on 07/04/2023 11:04:30 AM Test Reason : Location : [address] [place] [address] Overread By : CARLINE NATH DO Edited By : CARLINE NATH DO Referred By : SABINA JEFFERSON Acquired by : Edna isddiqi [facility] HISTORY PHYSICALon HISTORY PHYSICAL HNO ID: [id number] Author: VICTORINA GOOD APRN.DEJAN Service: ? Author Type: Nurse Practitioner Type: H&P Filed: 07/03/2023 10:14 Note Text: HISTORY AND PHYSICAL EXAMINATION SERVICE DATE: 07/03/2023 SERVICE TIME: 10:13 AM PRIMARY CARE PHYSICIAN: Jerry Arnold MD Assessment Patient has the following medical conditions which may affect alexandra-operative course: Absolute anemia Assessment: h/o Hemoglobin (g/dL) Date Value 06/22/2023 12.9 06/22/2021 12.9 Hematocrit (%) Date Value 06/22/2023 39.7 06/22/2021 37.8 WBC (k/uL) Date Value 06/22/2023 5.55 06/22/2021 6.14 Acquired hypothyroidism Assessment: stable on rx Facet hypertrophy of lumbar region Assessment: s/p lumbar laminectomy, rx as needed History of DVT of lower extremity Assessment: provoked by TKA, tx with AC History of transient ischemic attack (TIA) Assessment: ?hx, following cerebrovascular at [facility], c/w statin and ASA therapy Emily Radford, DEJAN IMPRESSION Episode of transient word finding difficulties in setting of headache. She went to [facility] ED and by the time she arrived, her symptoms resolved. Per imaging results: no acute findings. Patient reports being under more stress recently, which could have led to the headache and onset of word difficulties. She has not had recurrence since that day. Episode likely migraine vs less likely TIA. Need to review actual images. PLAN Request imaging from [place] for review. Continue current medications Stroke warning signs/symptoms and when to seek immediate medical attention discussed. Hypocalcemia Assessment: hx Calcium, Total Date Value Ref Range Status 07/25/2022 9.4 8.5 - 10.2 mg/dL Final Insomnia Assessment: stable on rx Malignant neoplasm of skin Assessment: BCC s/p excision Mixed hyperlipidemia Assessment: c/w statin Osteopenia of multiple sites Assessment: following rheumatology, hx Fosamax tx, now receiving Reclast, taking calcium and Vit D supplement Dr. Rico 3. Osteopenia: About 30 yrs ago, broke hand after slipping on ice. On fosamax for 2 years, stopped around due to BMD normalization. With osteopenia per DEXA. Dec DEXA with osteopenia, high FRAX. In Feb, started reclast (had 2 days of pain following). In Feb, had hip surgery-femur reportedly split while surgeon was hammering it. Advised this is would not clearly be considered a fragility fracture. But that either way, continued treatment advisable. 2nd reclast in September. Dec DXA unable to compare forearm, hasn't been checked before. - Continue reclast, advised on or after 09/14/22 (no PA needed given Medicare A/B). [facility] tx plan signed and in place. - Check vit D level. Notify of results via MyChart - Continue calcium and vitamin D supplementation - Check DEXA in Dec Other specified rheumatoid arthritis, multiple sites (HCC) Assessment: DMARD, MTx, following [facility] rheumatology, TE sent for pre-op medication instructions Dr. Rico 1. Seropositive RA: Treated wt MTX and orencia IV infusions. Stable, would like to wean off MTX - Decrease to methotrexate 7.5mg PO weekly along with folic acid 1mg daily. Advised any change in dosing may not result in worsening until 3-6 months later. If stable by next visit, can go down by another tablet - Contine routine methotrexate lab monitoring every 3 months, next due Oct. Standing lab orders are in place. Verbal and written reminders provided. Will notify of results via MyChart - Continue orencia IV every 4 weeks (no PA required with Medicare A/B). September-November [facility] infusion orders signed S/P total knee replacement using cement, left Assessment: hx Status post THR (total hip replacement) Assessment: hx, bilaterally Urge incontinence Assessment: controlled on rx Venous insufficiency Assessment: controlled on rx, following vascular at [facility] History of diverticulitis Assessment: s/p partial colectomy Harmon Activity Status Index: METS: Climb a flight of stairs or walk up a hill (5.50 METs) DASI Score: 5.5 Patient denies any chest pain or undue shortness of breath with the above physical activity. Clinical Frailty Scale: 3. Well, with treated comorbid disease STOP-Bang Score: Has or is being treated for high blood pressure Patient over 50 years old Denies snoring loudly Denies feeling tired, fatigued, or sleepy during the daytime Has not been observed to stop breathing or choking/gasping during sleep BMI less than or equal to 35 kg/m2 Does not have a large neck Non-male patient STOP-Bang Score: 2 [id number] Score: Age: >=75 Sex: female CHF history: No Hypertension history: Yes Stroke/TIA/thromboembol ism history: Yes Vascular disease history: Yes Diabetes history: No [id number] Score: 7 ARISCAT Score: Age: >80 Preoperative SpO2: >=96% Respiratory infection in the last month: (more content not included)... Normal [facility] ALLIED HEALTHon 07-01-2023 ALLIED HEALTH HNO ID: [id number] Author: JACQUE CARRILLO CT Service: Radiology Author Type: Technologist Type: Allied Health Filed: 07/01/2023 07:49 Note Text: Radiology Service Progress Note PATIENT NAME: [place] Mosquera DATE OF SERVICE: July 01, 2023 TIME: 7:42 AM PATIENT IDENTITY VERIFICATION COMPLETED USING TWO (2) IDENTIFIERS: Name and Date of confirmed by patient verbally and Name and Date of confirmed by identification band. FALL SCREENING: Has the patient had 2 falls in the last year or 1 fall with injury or currently using an Ambulatory Assistive Device (Walker, Cane, Wheelchair, Crutches, etc.)? No PATIENT GENDER DATA: Female. status: : No status: NO. PATIENT RELEVANT IMPLANT DATA REVIEWED: Not Applicable PATIENT PRESENTS WITH AN IMPLANTABLE OR ATTACHED GORE CUTTER: No RADIOLOGY DEPARTMENT: CT; Exam(s) Completed: RT SIMONE KNEE PERIPHERAL IV DATA: Not applicable SIGNED BY: MANDEEP Guerra July 01, 2023 7:42 AM Radiology Service Progress Note PATIENT NAME: Indiana Mosquera DATE OF SERVICE: July 01, 2023 TIME: 7:42 AM PATIENT IDENTITY VERIFICATION COMPLETED USING TWO (2) IDENTIFIERS: Name and Date of confirmed by patient verbally and Name and Date of confirmed by identification band. FALL SCREENING: Has the patient had 2 falls in the last year or 1 fall with injury or currently using an Ambulatory Assistive Device (Walker, Cane, Wheelchair, Crutches, etc.)? No PATIENT GENDER DATA: Female. status: : No status: NO. PATIENT RELEVANT IMPLANT DATA REVIEWED: Not Applicable PATIENT PRESENTS WITH AN IMPLANTABLE OR ATTACHED GORE CUTTER: No RADIOLOGY DEPARTMENT: RT SIMONE KNEE PERIPHERAL IV DATA: Not applicable SIGNED BY: MANDEEP Guerra July 01, 2023 7:[address] [facility] [address] KNEE WO IVCON RTon 2023 CT KNEE WO IVCON RT * * *Final Report* * * DATE OF EXAM: Jul 01 2023 7:50AM [facility] [place]NEE [place] IVCON RT / PROCEDURE REASON: multiple diagnoses * * * * Physician Interpretation * * * * CT KNEE WO IVCON RT 07/01/2023 7:50 AM HISTORY: Chronic pain of right knee Chronic pain of right knee TECHNIQUE: Non-contrast axial CT imaging of the right hip, right knee and right ankle was performed. Imaging was performed according to the [facility] protocol. Imaging was performed according to the [facility] protocol. Contrast: None. CT Radiation dose: Integrated Dose-length product (DLP) for this visit = 820 mGy*cm. CT Dose Reduction Employed: Automated exposure control(AEC) and iterative recon COMPARISON: None. RESULT: Hip: Right hip arthroplasty. No radiographic evidence of loosening. Knee: There is tricompartmental degenerative arthrosis with joint line osteophytes and joint space loss, greatest at the medial femorotibial articulation. Meniscal chondrocalcinosis. Ankle: Mild degenerative changes of the ankle. Visceral pelvis : Anastomotic sutures in sigmoid colon. Calcified uterine fibroids. Outsole Handler (topogram) images: No additional findings. IMPRESSION: Limited CT images for the purposes of presurgical planning. There is no unexpected acute or aggressive abnormality. Auto Winder: MURPHY Transcribe Date/Time: Jul 02 2023 9:08P Dictated by : SHANNEN CLARK MD This examination was interpreted and the report reviewed and electronically signed by: SHANNEN CLARK MD on Jul 03 2023 12:07AM EST [id number] [facility] 06-26-2023 [facility] Telephone (ME2E) INDIANA MOSQUERA ([id number]) 1940 F NFR Date Time Provider Department 06/26/23 SABINA JEFFERSON During your visit today, we recorded the following information about you: Vignesh Diallo PSS 06/27/2023 3:17 PM Signed TOTAL JOINT COMPLETE CARE PROGRAM PRE-OPERATIVE TEACHING Service Date: 06/26/2023 Service Time: 3:16 PM Date of : 1940 Gender: female Date of Surgery: 07/22/23 Procedure: Right Total Knee Replacement Complete Care Program was discussed with the patient: Applications Consultant Identification: Patient identified a career coordinator to help when discharged to home: Home Environment: Home Layout: Ranch, Entry Steps: 2 no rails, Bedroom Location: 1st floor, Bathroom Location: 1st floor, and tub shower. Pt owns walker, cane, raised toilet. Discussed with patient importance of attending joint education class and provided date and times of class: YES declined. Had ELDER in past. Patient received Joint Education Binder: Yes Patient plans discharge home with [facility]. SIGNATURE: GERARD Calderón PATIENT NAME: Indiana Mosquera DATE: June 26, 2023 TIME: 7:14 AM Allergies As of Date: 06/26/2023 Noted Allergy Reaction LIPITOR (ATORVASTATIN) 2019 17 - Myalgia Comments: Myalgia, lethargic ADHESIVE 03/12/2011 2 - Rash Comments: bandaids and tape ANTIVIRAL DRUGS 05/22/2005 6 - Diarrhea CIPRO (CIPROFLOXACIN) 12/10/2007 6 - Diarrhea FLAGYL (METRONIDAZOLE HCL) 12/10/2007 6 - Diarrhea ULTRAM (TRAMADOL HCL) 03/07/2015 14 - Other: See Comments Comments: When taken with celexa, felt like skin was hot and had heart palpitations Date Reviewed: 06/07/2023 Reviewed by: Bebe Ritter RN - Fully Assessed Reason for Visit: Pre-Op Teaching [134] Prescriptions as of 06/27/2023 - methotrexate 2.5 mg tablet TAKE 3 TABLETS ONCE WEEKLY - LORazepam (ATIVAN) 0.5 mg Take 1 tablet by mouth daily at bedtime for 90 days. - leucovorin (LEUCOVORIN) 5 mg tablet TAKE 1 TABLET EVERY SATURDAY - oxybutynin (DITROPAN) 5 mg tablet Take 1 tablet by mouth two times a day. - levothyroxine (SYNTHROID) 100 mcg tablet TAKE 1 AND 1/2 TABLETS ON SATURDAY AND SATURDAY ONLY, TAKE 1 TABLET REST OF DAYS - hydroCHLOROthiazide 12.5 mg capsule Take 1 capsule by mouth once daily as needed (vertigo). As needed for vertigo - celecoxib (CELEBREX) 200 mg capsule Take 1 capsule by mouth twice daily. Take this directly following a meal - abatacept (ORENCIA) 250 mg injection Inject intravenously once every month. - aspirin, enteric coated (ASPIRIN, ENTERIC COATED) 81 mg EC tablet Take 81 mg by mouth once daily. - rosuvastatin (CRESTOR) 10 mg tablet TAKE 1 TABLET AT BEDTIME - aspirin, enteric coated (ASPIRIN, ENTERIC COATED) 81 mg EC tablet Take 1 tablet by mouth twice daily for 27 days. - multivitamin tablet Take 1 tablet by mouth once daily. - cholecalciferol (VITAMIN D3) 1,000 unit tab Take 1,000 Units by mouth once daily. Problem List As Of Date 06/26/2023 Noted Resolved Polymyalgia Rheumatica [M35.3] 04/18/2000 06/14/2009 HEMATURIA [599.7] 04/18/2000 Edema [R60.9] 04/18/2000 08/30/2017 Lump or mass in breast [N63.0] 04/18/2000 09/01/2014 Acquired hypothyroidism [E03.9] Venous insufficiency [I87.2] 04/18/2007 DIVERTICULITIS COLON - NO HEMORRHAGE [K57.32] 11/13/2007 PERS HX ALLERGY TO LATEX [Z91.040] 12/10/2007 Benign neoplasm of breast [D24.9] 08/30/2017 Disorder of Bone and Cartilage, Unspecified [M8* 06/14/2009 Malignant neoplasm of skin [C44.90] Asymptomatic varicose veins [I83.90] 12/10/2007 09/01/2014 DIFFUS CYSTIC MASTOPATHY [N60.19] 04/06/2008 Digital Mucous Cyst [M67.449] 11/25/2009 Dystrophia Unguis Mediana Canaliformis [L60.9] 11/25/2009 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] 11/25/2009 08/30/2017 Actinic Damage///Sun-Damaged Skin [L57.8] 11/25/2009 09/01/2014 Solar Lentigines [L81.4] 11/25/2009 09/01/2014 Other seborrheic keratosis [L82.1] 11/25/2009 09/01/2014 Postmenopausal atrophic vaginitis [N95.2] 06/06/2010 Urgency of urination [R39.15] 06/06/2010 Urge incontinence [N39.41] 06/06/2010 Screening for malignant neoplasm of the cervix *06/06/2010 Family history of malignant neoplasm of breast *06/06/2010 Ventral hernia, unspecified, without mention of*03/09/2011 08/30/2017 Encounter for long-term (current) use of medica*05/31/2011 RA (rheumatoid arthritis) [M06.9] 05/31/2011 09/01/2014 Backache, unspecified [M54.9] 12/03/2011 Hematuria [R31.9] 06/09/2012 Fibrocystic breast [N60.19] 07/09/2013 Thoracic or lumbosacral neuritis or radiculitis*09/16/2013 Facet hypertrophy of lumbar region [M47.816] 11/03/2013 Lumbar spondylosis [M47.816] 11/03/2013 Lumbar radiculopathy [M54.16] 11/03/2013 Lumbar disc displacement without myelopathy [M5*11/03/2013 Seropositive rheumatoid arthritis (HCC) [M05.9] 10/22/2014 Encounter for long-term (more content not included)... Normal [facility] ALT SerPl-cCncon 06-22-2023 ALT [Catalytic activity/Vol] 28 U/L Normal 7-38 [facility] Comment on above: Order Comment: Speci men Type: BLOOD SPECIMEN Ordering Facility: [facility] Address: [address] [place] [address] Performed By: #### C RET1, 1741-10, 1919-12 #### [facility] CLIA [id number] [address] [place] [address] [place] AST SerPl-cCncon 06-22-2023 AST [Catalytic activity/Vol] 34 U/L Normal 13-35 [facility] Comment on above: Order Comment: Speci men Type: BLOOD SPECIMEN Ordering Facility: [facility] Address: [address] [place] [address] Performed By: #### C RET1, 17406-18, 1919-12 #### [facility] CLIA [id number] [address] [place] [address] [place] CBC panel Auto (Bld)on 06-22 Erythrocyte distribution width (RBC) [Ratio] 13.4 % Normal 11.5-15.0 [facility] Comment on above: Order Comment: Speci men Type: BLOOD SPECIMEN Ordering Facility: [facility] Address: [address] [place] [address] Performed By: #### 5 8410-2 #### [facility] CLIA [id number] [address] [place] [address] [place] Hematocrit (Bld) [Volume fraction] 39.7 % Normal 36.0-46.0 [facility] Comment on above: Order Comment: Speci men Type: BLOOD SPECIMEN Ordering Facility: [facility] Address: [address] [place] [address] Performed By: #### 5 8410-2 #### [facility] CLIA [id number] [address] [place] [address] [place] Hemoglobin (Bld) [Mass/Vol] 12.9 g/dL Normal 11.5-15.5 [facility] Comment on above: Order Comment: Speci men Type: BLOOD SPECIMEN Ordering Facility: [facility] Address: [address] [place] [address] Performed By: #### 5 8410-2 #### [facility] CLIA [id number] [address] [place] [address] [place] MCH (RBC) [Entitic mass] 31.3 pg Normal 26.0-34.0 [facility] Comment on above: Order Comment: Speci men Type: BLOOD SPECIMEN Ordering Facility: [facility] Address: [address] [place] [address] Performed By: #### 5 8410-2 #### [facility] CLIA [id number] [address] [place] [address] [place] MCHC (RBC) [Mass/Vol] 32.5 g/dL Normal 30.5-36.0 [facility] Comment on above: Order Comment: Speci men Type: BLOOD SPECIMEN Ordering Facility: [facility] Address: [address] [place] [address] Performed By: #### 5 8410-2 #### [facility] CLIA [id number] [address] [place] [address] [place] MCV (RBC) [Entitic vol] 96.4 fL Normal 80.0-100.0 [facility] Comment on above: Order Comment: Speci men Type: BLOOD SPECIMEN Ordering Facility: [facility] Address: [address] [place] [address] Performed By: #### 5 8410-2 #### [facility] CLIA [id number] [address] [place] [address] [place] Nucleated RBC (Bld) [#/Vol] 10*3/uL Normal <0.01 [facility] Comment on above: Order Comment: Speci men Type: BLOOD SPECIMEN Ordering Facility: [facility] Address: [address] [place] [address] Performed By: #### 5 8410-2 #### [facility] CLIA [id number] [address] [place] [address] [place] Platelet mean volume (Bld) [Entitic vol] 10.3 fL Normal 9.0-12.7 [facility] Comment on above: Order Comment: Speci men Type: BLOOD SPECIMEN Ordering Facility: [facility] Address: [address] [place] [address] Performed By: #### 5 8410-2 #### [facility] CLIA [id number] [address] [place] [address] [place] Platelets (Bld) [#/Vol] 242 10*3/uL Normal 150-400 [facility] Comment on above: Order Comment: Speci men Type: BLOOD SPECIMEN Ordering Facility: [facility] Address: [address] [place] [address] Performed By: #### 5 8410-2 #### [facility] CLIA [id number] [address] [place] [address] [place] RBC (Bld) [#/Vol] 4.12 10*6/uL Normal 3.90-5.20 [facility] Comment on above: Order Comment: Speci men Type: BLOOD SPECIMEN Ordering Facility: [facility] Address: [address] [place] [address] Performed By: #### 5 8410-2 #### [facility] CLIA [id number] [address] [place] [address] [place] WBC (Bld) [#/Vol] 5.55 10*3/uL Normal 3.70-11.00 [facility] Comment on above: Order Comment: Speci men Type: BLOOD SPECIMEN Ordering Facility: [facility] Address: [address] [place] [address] Performed By: #### 5 8410-2 #### [facility] CLIA [id number] [address] [place] [address] [place] CREATININE BLDon 06-22-2023 Creatinine [Mass/Vol] 0.73 mg/dL Normal 0.58-0.96 [facility] Comment on above: Order Comment: Speci men Type: BLOOD SPECIMEN Ordering Facility: [facility] Address: [address] [place] [address] Performed By: #### C RET1, 1742-6, 1920-8 #### [facility] CLIA [id number] [address] [place] [address] [place] Creatinine and Glomerular filtration rate.predicted panel (S/P/Bld) 82 mL/min/1.73m??? Normal >=60 [facility] Comment on above: Order Comment: Speci men Type: BLOOD SPECIMEN Ordering Facility: [facility] Address: [address] [place] [address] Result Comment: Rosy mated Glomerular Filtration Rate (eGFR) is calculated using the 2020 CKD-EPI creatinine equation. This equation utilizes serum creatinine, sex, and age as parameters. The creatinine assay has traceable calibration to isotope dilution-mass spectrometry. Refer to KDIGO guidelines for clinical interpretation. In patients with unstable renal function, e.g. those with acute kidney injury, the eGFR may not accurately reflect actual GFR. Performed By: #### C RET1, 1742-6, 1920-8 #### [facility] CLIA [id number] [address] [place], [place] [id number] [facility] CNTHERAPYon 05-27-2023 CNTHERAPY OT/PT/Speech Visit (PTWS) INDIANA MOSQUERA ([id number]) 1940 F NFR Date Time Provider Department 05/27/23 8:30 AM CONTRERAS KRAUSE PTWS Date Time Provider Department Center 05/27/2023 8:30 AM [id number] PTWS Anjum Alexandra Reason for Visit: PT Eval [747] PT Discharge [752] Visit Diagnosis:Chronic pain of right knee [M25.561, G89.29] Allergies As of Date: 05/27/2023 Noted Allergy Reaction LIPITOR (ATORVASTATIN) 2019 17 - Myalgia Comments: Myalgia, lethargic ADHESIVE 03/12/2011 2 - Rash Comments: bandaids and tape ANTIVIRAL DRUGS 05/22/2005 6 - Diarrhea CIPRO (CIPROFLOXACIN) 12/10/2007 6 - Diarrhea FLAGYL (METRONIDAZOLE HCL) 12/10/2007 6 - Diarrhea ULTRAM (TRAMADOL HCL) 03/07/2015 14 - Other: See Comments Comments: When taken with celexa, felt like skin was hot and had heart palpitations Date Reviewed: 05/16/2023 Reviewed by: Sabina Jefferson MD - Fully Assessed Prescriptions as of 05/27/2023 - methotrexate 2.5 mg tablet TAKE 3 TABLETS ONCE WEEKLY - LORazepam (ATIVAN) 0.5 mg Take 1 tablet by mouth daily at bedtime for 90 days. - leucovorin (LEUCOVORIN) 5 mg tablet TAKE 1 TABLET EVERY SATURDAY - oxybutynin (DITROPAN) 5 mg tablet Take 1 tablet by mouth two times a day. - levothyroxine (SYNTHROID) 100 mcg tablet TAKE 1 AND 1/2 TABLETS ON SATURDAY AND SATURDAY ONLY, TAKE 1 TABLET REST OF DAYS - hydroCHLOROthiazide 12.5 mg capsule Take 1 capsule by mouth once daily as needed (vertigo). As needed for vertigo - celecoxib (CELEBREX) 200 mg capsule Take 1 capsule by mouth twice daily. Take this directly following a meal - abatacept (ORENCIA) 250 mg injection Inject intravenously once every month. - aspirin, enteric coated (ASPIRIN, ENTERIC COATED) 81 mg EC tablet Take 81 mg by mouth once daily. - rosuvastatin (CRESTOR) 10 mg tablet TAKE 1 TABLET AT BEDTIME - aspirin, enteric coated (ASPIRIN, ENTERIC COATED) 81 mg EC tablet Take 1 tablet by mouth twice daily for 27 days. - multivitamin tablet Take 1 tablet by mouth once daily. - cholecalciferol (VITAMIN D3) 1,000 unit tab Take 1,000 Units by mouth once daily. Sign Designer: Therapy (PT/OT/Speech/Resp) ID: [id number] 05/27/2023 9:29 AM Author: CONTRERAS KRAUSE Signed by CONTRERAS KRAUSE PT on 05/27/2023 at 9:29 AM Document text: Program_ID:[id number] Access Code: [email or web address] URL: [email or web address]/ Date: 05-27-2023 Prepared By: Contreras Krause Program Notes Exercises - Sit to Stand - 2 x daily - 7 x weekly - 2 sets - 10 reps - Quad Setting and Stretching - 2 x daily - 7 x weekly - 2 sets - 10 reps - Active Straight Leg Raise with Quad Set - 2 x daily - 7 x weekly - 2 sets - 10 reps Normal [facility] THERAPY NTon 05-27-2023 THERAPY NT HNO ID: [id number] Author: CONTRERAS KRAUSE PT Service: ? Author Type: Physical Therapist Type: Therapy (PT/OT/Speech/Resp) Filed: 05/27/2023 09:29 Note Text: Program_ID:[id number] Access Code: [email or web address] URL: [email or web address] Date: 05-27-2023 Prepared By: Contreras Krause Program Notes Exercises - Sit to Stand - 2 x daily - 7 x weekly - 2 sets - 10 reps - Quad Setting and Stretching - 2 x daily - 7 x weekly - 2 sets - 10 reps - Active Straight Leg Raise with Quad Set - 2 x daily - 7 x weekly - 2 sets - 10 reps Normal [facility] CNOVon 05-16-2023 CNOV Office Visit (KRISTIAN ) [place] MOSQUERA ([id number]) 1940 F NFR Date Time Provider Department 05/16/23 10:20 AM SABINA JEFFERSON During your visit today, we recorded the following information about you: Sabina Jefferson MD 05/16/2023 1:00 PM Signed Orthopaedic Office Note: May 16, 2023 12:57 PM [place] Mosquera 83 year old History: [place] is well-known to me for all of her hip and knee trouble. I replaced her right hip, my previous partner Dr. Jett replaced her left hip and her left knee. She has known severe right knee osteoarthritis. Although it is not terribly painful, it is starting to become more debilitating for her and give way. Her is battling several types of cancer and is just now in remission. As she ages, she has high concerns about not getting her knee taken care of now and being unable to later. She has already exhausted conservative management. Subjective: Right knee dysfunction affecting quality of life Updated ROS: No changes Updated Exam: Right lower Extremity Valgus deformity, partly correctable Tender palpation lateral joint line, medial joint line Painful patellar crepitance Stable ligamentous exam Range of motion 5 to 120 degrees Full strength and sensation Updated Imaging: Severe right knee osteoarthritis Assessment and Plan: We have discussed risks and benefits of surgery along length today. She has severe arthritis of the right knee. Her pain is not severe yet, and I did discuss with her that sometimes that can portend a slightly more difficult recovery process as there will be postoperative pain. However she is starting to have issues with instability, and from a timing standpoint this may be one of her only opportunities to get this taken care of with her 's health problems. All risks and benefits have been discussed. She wishes to proceed. Informed consent has been signed. She will stay overnight. I spent a total of approximately 25 minutes on the date of the service which included preparing to see the patient, [id number] patient care, completing clinical documentation, obtaining and/or reviewing separately obtained history, performing a medically appropriate examination, counseling and educating the patient/family/caregive r, ordering medications, tests, or procedures, independently interpreting results (not separately reported), communicating results to the patient/family/caregive r, and care coordination (not separately reported). Sabina Jefferson MD Orthopaedic Surgery Allergies As of Date: 05/16/2023 Noted Allergy Reaction LIPITOR (ATORVASTATIN) 2019 17 - Myalgia Comments: Myalgia, lethargic ADHESIVE 03/12/2011 2 - Rash Comments: bandaids and tape ANTIVIRAL DRUGS 05/22/2005 6 - Diarrhea CIPRO (CIPROFLOXACIN) 12/10/2007 6 - Diarrhea FLAGYL (METRONIDAZOLE HCL) 12/10/2007 6 - Diarrhea ULTRAM (TRAMADOL HCL) 03/07/2015 14 - Other: See Comments Comments: When taken with celexa, felt like skin was hot and had heart palpitations Date Reviewed: 05/16/2023 Reviewed by: Sabina Jefferson MD - Fully Assessed Reason for Visit: Follow Up [171] Primary Visit Diagnosis:Chronic pain of right knee [M25.561, G89.29] Order(s):CT KNEE WO IVCON RIGHT [8504363] Order #: [id number] FUTURE CONSULT TO PHYSICAL THERAPY [9032] Order #: [id number]: 1 FUTURE Prescriptions as of 05/16/2023 - LORazepam (ATIVAN) 0.5 mg Take 1 tablet by mouth daily at bedtime for 90 days. - methotrexate 2.5 mg tablet TAKE 3 TABLETS ONCE WEEKLY - leucovorin (LEUCOVORIN) 5 mg tablet TAKE 1 TABLET EVERY SATURDAY - oxybutynin (DITROPAN) 5 mg tablet Take 1 tablet by mouth two times a day. - levothyroxine (SYNTHROID) 100 mcg tablet TAKE 1 AND 1/2 TABLETS ON SATURDAY AND SATURDAY ONLY, TAKE 1 TABLET REST OF DAYS - meloxicam (MOBIC) 7.5 mg tablet Take 7.5 mg by mouth once daily. - hydroCHLOROthiazide 12.5 mg capsule Take 1 capsule by mouth once daily as needed (vertigo). As needed for vertigo - celecoxib (CELEBREX) 200 mg capsule Take 1 capsule by mouth twice daily. Take this directly following a meal - abatacept (ORENCIA) 250 mg injection Inject intravenously once every month. - aspirin, enteric coated (ASPIRIN, ENTERIC COATED) 81 mg EC tablet Take 81 mg by mouth once daily. - rosuvastatin (CRESTOR) 10 mg tablet TAKE 1 TABLET AT BEDTIME - aspirin, enteric coated (ASPIRIN, ENTERIC COATED) 81 mg EC tablet Take 1 tablet by mouth twice daily for 27 days. - multivitamin tablet Take 1 tablet by mouth once daily. - cholecalciferol (VITAMIN D3) 1,000 unit tab Take 1,000 Units by mouth once daily. Problem List As Of Date 05/16/2023 Noted Resolved Polymyalgia Rheumatica [M35.3] 04/18/2000 06/14/2009 HEMATURIA [599.7] 04/18/2000 Edema [R60.9] 04/18/2000 08/30/2017 Lump or mass in breast [N63.0] 04/18/2000 09/01/2014 Acquired hypothyroid (more content not included)... Normal [facility] CNPNon 04-30-2023 CNPN Telephone (ORMDRG) [place] MOSQUERA ([id number]) 1940 F NFR Date Time Provider Department 04/30/23 SABINA JEFFERSON ORANICETO During your visit today, we recorded the following information about you: Earline Gonzalez 04/30/2023 8:22 AM Signed Patient calling in. She is S/P TKA on the left. She went to get up out of a chair last night and had immediate pain and cannot bear weight on it. She reports no fever, chills or sweats. No trauma. The pain is localized to the knee and only travels up into the gh a little. She has been putting ice on it but no help. She is not sure what to do. She can be reached at [phone] Earline Benson [facility] Lakeisha Pérez 04/30/2023 3:15 PM Signed Patient called in to follow up and okay to leave detailed VM on [phone]. Thank you. Mando Catalan APRN.[facility] 05/01/2023 12:52 PM Signed Arrange for an appointment tomorrow to be seen. X-rays prior. Or if pain is still severe and inability to bear weight ER evaluation today. Mando Giron APRN.[facility] May 01, 2023 12:50 PM Sasha Levy 05/01/2023 1:29 PM Signed Lvm for patient to call back and schedule an appointment tomorrow with provider. Sasha Levy 05/02/2023 8:13 AM Signed Called patient first thing this morning patient states that the pain is no longer there and she does not see a need to come in for an appointment Allergies As of Date: 04/30/2023 Noted Allergy Reaction LIPITOR (ATORVASTATIN) 2019 17 - Myalgia Comments: Myalgia, lethargic ADHESIVE 03/12/2011 2 - Rash Comments: bandaids and tape ANTIVIRAL DRUGS 05/22/2005 6 - Diarrhea CIPRO (CIPROFLOXACIN) 12/10/2007 6 - Diarrhea FLAGYL (METRONIDAZOLE HCL) 12/10/2007 6 - Diarrhea ULTRAM (TRAMADOL HCL) 03/07/2015 14 - Other: See Comments Comments: When taken with celexa, felt like skin was hot and had heart palpitations Date Reviewed: 04/10/2023 Reviewed by: Jaclyn Dial RN - Fully Assessed Reason for Visit: Patient Question [1477] Prescriptions as of 05/09/2023 - LORazepam (ATIVAN) 0.5 mg Take 1 tablet by mouth daily at bedtime for 90 days. - methotrexate 2.5 mg tablet TAKE 3 TABLETS ONCE WEEKLY - leucovorin (LEUCOVORIN) 5 mg tablet TAKE 1 TABLET EVERY SATURDAY - oxybutynin (DITROPAN) 5 mg tablet Take 1 tablet by mouth two times a day. - levothyroxine (SYNTHROID) 100 mcg tablet TAKE 1 AND 1/2 TABLETS ON SATURDAY AND SATURDAY ONLY, TAKE 1 TABLET REST OF DAYS - meloxicam (MOBIC) 7.5 mg tablet Take 7.5 mg by mouth once daily. - hydroCHLOROthiazide 12.5 mg capsule Take 1 capsule by mouth once daily as needed (vertigo). As needed for vertigo - celecoxib (CELEBREX) 200 mg capsule Take 1 capsule by mouth twice daily. Take this directly following a meal - abatacept (ORENCIA) 250 mg injection Inject intravenously once every month. - aspirin, enteric coated (ASPIRIN, ENTERIC COATED) 81 mg EC tablet Take 81 mg by mouth once daily. - rosuvastatin (CRESTOR) 10 mg tablet TAKE 1 TABLET AT BEDTIME - aspirin, enteric coated (ASPIRIN, ENTERIC COATED) 81 mg EC tablet Take 1 tablet by mouth twice daily for 27 days. - multivitamin tablet Take 1 tablet by mouth once daily. - cholecalciferol (VITAMIN D3) 1,000 unit tab Take 1,000 Units by mouth once daily. Problem List As Of Date 04/30/2023 Noted Resolved Polymyalgia Rheumatica [M35.3] 04/18/2000 06/14/2009 HEMATURIA [599.7] 04/18/2000 Edema [R60.9] 04/18/2000 08/30/2017 Lump or mass in breast [N63.0] 04/18/2000 09/01/2014 Acquired hypothyroidism [E03.9] Venous insufficiency [I87.2] 04/18/2007 DIVERTICULITIS COLON - NO HEMORRHAGE [K57.32] 11/13/2007 PERS HX ALLERGY TO LATEX [Z91.040] 12/10/2007 Benign neoplasm of breast [D24.9] 08/30/2017 Disorder of Bone and Cartilage, Unspecified [M8* 06/14/2009 Malignant neoplasm of skin [C44.90] Asymptomatic varicose veins [I83.90] 12/10/2007 09/01/2014 DIFFUS CYSTIC MASTOPATHY [N60.19] 04/06/2008 Digital Mucous Cyst [M67.449] 11/25/2009 Dystrophia Unguis Mediana Canaliformis [L60.9] 11/25/2009 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] 11/25/2009 08/30/2017 Actinic Damage///Sun-Damaged Skin [L57.8] 11/25/2009 09/01/2014 Solar Lentigines [L81.4] 11/25/2009 09/01/2014 Other seborrheic keratosis [L82.1] 11/25/2009 09/01/2014 Postmenopausal atrophic vaginitis [N95.2] 06/06/2010 Urgency of urination [R39.15] 06/06/2010 Urge incontinence [N39.41] 06/06/2010 Screening for malignant neoplasm of the cervix *06/06/2010 Family history of malignant neoplasm of breast *06/06/2010 Ventral hernia, unspecified, without mention of*03/09/2011 08/30/2017 Encounter for long-term (current) use of medica*05/31/2011 RA (rheumatoid arthritis) [M06.9] 05/31/2011 09/01/2014 Backache, unspecified [M54.9] 12/03/2011 Hematuria [R31.9] 06/09/2012 Fibrocystic breast [N60.19] 07/09/2013 Thoracic or lumb (more content not included)... Normal [facility] CBC panel Auto (Bld)on 03-04 Erythrocyte distribution width (RBC) [Ratio] 14.1 % Normal 11.5-15.0 [facility] Comment on above: Order Comment: Speci men Type: BLOOD SPECIMEN Ordering Facility: [facility] Address: [address] [place] [address] Performed By: #### 1 7861-6, 6-3 #### [facility] CLIA [id number] [address] [place] [address] [place] Hematocrit (Bld) [Volume fraction] 38.9 % Normal 36.0-46.0 [facility] Comment on above: Order Comment: Speci men Type: BLOOD SPECIMEN Ordering Facility: [facility] Address: [address] [place] [address] Performed By: #### 1 7861-6, 3015-3 #### [facility] CLIA [id number] [address] [place] [address] [place] Hemoglobin (Bld) [Mass/Vol] 12.8 g/dL Normal 11.5-15.5 [facility] Comment on above: Order Comment: Speci men Type: BLOOD SPECIMEN Ordering Facility: [facility] Address: [address] [place] [address] Performed By: #### 1 7861-6, 6-3 #### [facility] CLIA [id number] [address] [place] [address] [place] MCH (RBC) [Entitic mass] 32.5 pg Normal 26.0-34.0 [facility] Comment on above: Order Comment: Speci men Type: BLOOD SPECIMEN Ordering Facility: [facility] Address: [address] [place] [address] Performed By: #### 1 7861-6, 3016-3 #### [facility] CLIA [id number] [address] [place], [place] [id number] [place] MCHC (RBC) [Mass/Vol] 32.9 g/dL Normal 30.5-36.0 [facility] Comment on above: Order Comment: Speci men Type: BLOOD SPECIMEN Ordering Facility: [facility] Address: [address] [place] [address] Performed By: #### 1 7861-6, 3016-3 #### [facility] CLIA [id number] [address] [place], [place] [id number] [place] MCV (RBC) [Entitic vol] 98.7 fL Normal 80.0-100.0 [facility] Comment on above: Order Comment: Speci men Type: BLOOD SPECIMEN Ordering Facility: [facility] Address: [address] [place] [address] Performed By: #### 1 7861-6, 3016-3 #### [facility] CLIA [id number] [address] [place] [address] [place] Nucleated RBC (Bld) [#/Vol] 10*3/uL Normal <0.01 [facility] Comment on above: Order Comment: Speci men Type: BLOOD SPECIMEN Ordering Facility: [facility] Address: [address] [place] [address] Performed By: #### 1 7861-6, 3016-3 #### [facility] CLIA [id number] [address] [place] [address] [place] Platelet mean volume (Bld) [Entitic vol] 10.1 fL Normal 9.0-12.7 [facility] Comment on above: Order Comment: Speci men Type: BLOOD SPECIMEN Ordering Facility: [facility] Address: [address] [place] [address] Performed By: #### 1 7861-6, 3016-3 #### [facility] CLIA [id number] [address] [place], [place] [address] [place] Platelets (Bld) [#/Vol] 218 10*3/uL Normal 150-400 [facility] Comment on above: Order Comment: Speci men Type: BLOOD SPECIMEN Ordering Facility: [facility] Address: [address] [place] [address] Performed By: #### 1 7861-6, 3016-3 #### [facility] CLIA [id number] [address] [place] [address] [place] RBC (Bld) [#/Vol] 3.94 10*6/uL Normal 3.90-5.20 [facility] Comment on above: Order Comment: Speci men Type: BLOOD SPECIMEN Ordering Facility: [facility] Address: [address] [place] [address] Performed By: #### 1 7861-6, 3016-3 #### [facility] CLIA [id number] [address] [place] [address] [place] WBC (Bld) [#/Vol] 5.87 10*3/uL Normal 3.70-11.00 [facility] Comment on above: Order Comment: Speci men Type: BLOOD SPECIMEN Ordering Facility: [facility] Address: [address] [place] [address] Performed By: #### 1 7861-6, 3016-3 #### [facility] CLIA [id number] [address] [place] [address] [place] CREATININE [facility] 03-04-2023 Creatinine [Mass/Vol] 0.74 mg/dL Normal 0.58-0.96 [facility] Comment on above: Order Comment: Speci men Type: BLOOD SPECIMEN Ordering Facility: [facility] Address: [address] [place] [address] Performed By: #### C RET1, 06827-1 #### [facility] CLIA [id number] [address] [place] [address] [place] Creatinine and Glomerular filtration rate.predicted panel (S/P/Bld) 80 mL/min/1.73m??? Normal >=60 [facility] Comment on above: Order Comment: Speci men Type: BLOOD SPECIMEN Ordering Facility: [facility] Address: [address] [place] [address] Result Comment: Rosy mated Glomerular Filtration Rate (eGFR) is calculated using the 2020 CKD-EPI creatinine equation. This equation utilizes serum creatinine, sex, and age as parameters. The creatinine assay has traceable calibration to isotope dilution-mass spectrometry. Refer to KDIGO guidelines for clinical interpretation. In patients with unstable renal function, e.g. those with acute kidney injury, the eGFR may not accurately reflect actual GFR. Performed By: #### C SURAJ1, 01191-6 #### [facility] CLIA [id number] [address] [place] [address] [place] Hepatic function 2000 panelo n 03-04-2023 Albumin [Mass/Vol] 4.6 g/dL Normal 3.9-4.9 [facility] Comment on above: Order Comment: Speci men Type: BLOOD SPECIMENOrdering Facility: [facility] Address: [address] [place] [address] Performed By: #### C RET1, 54512-2 ####[facility] [id number] [place] [address] [place] ALP [Catalytic activity/Vol] 51 U/L Normal 34-123 [facility] Comment on above: Order Comment: Speci men Type: BLOOD SPECIMENOrdering Facility: [facility] Address: [address] [place] [address] Performed By: #### C RET1, 62680-1 ####[facility] [id number] [place] [address] [place] ALT [Catalytic activity/Vol] 24 U/L Normal 7-38 [facility] Comment on above: Order Comment: Speci men Type: BLOOD SPECIMENOrdering Facility: [facility] Address: [address] [place] [address] Performed By: #### C RET1, 06478-2 ####[facility] [id number] [place] [address] [place] AST [Catalytic activity/Vol] 35 U/L Normal 13-35 [facility] Comment on above: Order Comment: Speci men Type: BLOOD SPECIMENOrdering Facility: [facility] Address: [address] [place] [address] Performed By: #### C RET1, 81110-7 ####[facility] [id number] [place] [address] [place] Bilirubin [Mass/Vol] 0.8 mg/dL Normal 0.2-1.3 [facility] Comment on above: Order Comment: Speci men Type: BLOOD SPECIMENOrdering Facility: [facility] Address: [address] [place] [address] Performed By: #### C RET, 72929-9 ####[facility] [id number] [place] [address] [place] Bilirubin.conjugated [Mass/Vol] 0.2 mg/dL High <0.2 [facility] Comment on above: Order Comment: Speci men Type: BLOOD SPECIMENOrdering Facility: [facility] Address: [address] [place] [address] Performed By: #### C RET1, 71854-8 ####[facility] [id number] [place] [address] [place] Protein [Mass/Vol] 7.1 g/dL Normal 6.3-8.0 [facility] Comment on above: Order Comment: Speci men Type: BLOOD SPECIMENOrdering Facility: [facility] Address: [address] [place] [address] Performed By: #### C RET1, 81540-9 ####[facility] [id number] [place] [address] [place] PAMELA SCREENINGon 10-01-2022 [facility] XR Hip - right AP and Latera wyatt 09-22-2022 IMPRESSION: No acute abnormality Auto Winder: MURPHY Transcribe Date/Time: Sep 22 2022 3:36P Dictated by : JEANINE SALAZAR MD This examination was interpreted and the report reviewed and electronically signed by: JEANINE SALAZAR MD on Sep 22 2022 3:37PM [facility] * * *Final Report* * * DATE OF EXAM: Sep 20 2022 8:27AM [facility]80 - XR HIP 2V AP/LAT RT / PROCEDURE REASON: M25.551-Pain in right hip * * * * Physician Interpretation * * * * PROCEDURE: Right hip INDICATION: Pain in right hip .RIGHT HIP PAIN-ELDER TECHNIQUE: XR AP pelvis, crosstable lateral right hip COMPARISON: 04/19/2022 FINDINGS: The right total hip arthroplasty remains in satisfactory position without evidence for loosening. Intact femoral cerclage wire. Left total hip arthroplasty is stable as well. Mild degenerative spurring at the right SI joint and symphysis pubis as well as degenerative change in the lower lumbar spine. [facility] Provider, Pari arenas [place] - 09/22/2022 * * *Final Report* * * DATE OF EXAM: Sep 20 2022 8:27AM [facility] - XR HIP 2V AP/LAT RT / PROCEDURE REASON: M25.551-Pain in right hip * * * * Physician Interpretation * * * * PROCEDURE: Right hip INDICATION: Pain in right hip .RIGHT HIP PAIN-ELDER TECHNIQUE: XR AP pelvis, crosstable lateral right hip COMPARISON: 04/19/2022 FINDINGS: The right total hip arthroplasty remains in satisfactory position without evidence for loosening. Intact femoral cerclage wire. Left total hip arthroplasty is stable as well. Mild degenerative spurring at the right SI joint and symphysis pubis as well as degenerative change in the lower lumbar spine. IMPRESSION IMPRESSION: No acute abnormality Auto Winder: MURPHY Transcribe Date/Time: Sep 22 2022 3:36P Dictated by : JEANINE SALAZAR MD This examination was interpreted and the report reviewed and electronically signed by: JEANINE SALAZAR MD on Sep 22 2022 3:37PM EST [facility] XR Hip - right AP and Latera lOrdered By: [facility] Provider on 09-22-2022 [facility] XR Hip - right AP and Latera wyatt 09-20-2022 Radiology Study observation (narrative) [facility] XR Knee - right 4 Viewson * * *Final Report* * * DATE OF EXAM: Aug 16 2022 8:25AM [facility] - XR KNEE 4V AP/PA BOTH+LAT/ROLANDO RT / PROCEDURE REASON: multiple diagnoses * * * * Physician Interpretation * * * * PROCEDURE: Right knee INDICATION: Chronic pain of right knee TECHNIQUE: XR KNEE 4V AP/PA BOTH+LAT/ROLANDO RT COMPARISON: 08/04/2020, AP view only FINDINGS: Advanced tricompartment osteoarthrosis with joint space narrowing and marginal spur formation, greater than previous. Chondrocalcinosis. No joint effusion. Calcification within the suprapatellar pouch, perhaps synovial in origin. No fracture. Left TKA is evident. [facility] * * *Final Report* * * DATE OF EXAM: Aug 16 2022 8:25AM [facility]203 - XR KNEE 4V AP/PA BOTH+LAT/ROLANDO RT / PROCEDURE REASON: multiple diagnoses * * * * Physician Interpretation * * * * PROCEDURE: Right knee INDICATION: Chronic pain of right knee TECHNIQUE: XR KNEE 4V AP/PA BOTH+LAT/ROLANDO RT COMPARISON: 08/04/2020, AP view only FINDINGS: Advanced tricompartment osteoarthrosis with joint space narrowing and marginal spur formation, greater than previous. Chondrocalcinosis. No joint effusion. Calcification within the suprapatellar pouch, perhaps synovial in origin. No fracture. Left TKA is evident. IMPRESSION IMPRESSION: Progressive, advanced tricompartment osteoarthrosis Auto Winder: PSCB Transcribe Date/Time: Aug 17 2022 7:31A Dictated by : JEANINE SALAZAR MD This examination was interpreted and the report reviewed and electronically signed by: JEANINE SALAZAR MD on Aug 17 2022 7:33AM EST [facility] XR Knee - right 4 ViewsOrder ed By: [facility] Provider on 08-17-2022 [facility] XR Knee - right 4 Viewson Radiology Study observation (narrative) [facility] XR Pelvis APon 04-19-2022 IMPRESSION: Stable bilateral THAs Auto Winder: MURPHY Transcribe Date/Time: Apr 19 2022 12:31P Dictated by : JEANINE SALAZAR MD This examination was interpreted and the report reviewed and electronically signed by: JEANINE SALAZAR MD on Apr 19 2022 12:32PM EST [facility] * * *Final Report* * * DATE OF EXAM: Apr 19 2022 10:23AM MDO 5239 - XR PELVIS 1V AP / PROCEDURE REASON: multiple diagnoses * * * * Physician Interpretation * * * * PROCEDURE: Pelvis INDICATION: Bilateral hip pain .pain TECHNIQUE: XR PELVIS 1V AP COMPARISON: 04/11/2021 FINDINGS: Bilateral total hip arthroplasties remain in satisfactory position without evidence for loosening. Intact cerclage wire on the right. No acute fracture. [facility] Provider, Pari arenas [place] - 04/19/2022 * * *Final Report* * * DATE OF EXAM: Apr 19 2022 10:23AM MDO 5239 - XR PELVIS 1V AP / PROCEDURE REASON: multiple diagnoses * * * * Physician Interpretation * * * * PROCEDURE: Pelvis INDICATION: Bilateral hip pain .pain TECHNIQUE: XR PELVIS 1V AP COMPARISON: 04/11/2021 FINDINGS: Bilateral total hip arthroplasties remain in satisfactory position without evidence for loosening. Intact cerclage wire on the right. No acute fracture. IMPRESSION IMPRESSION: Stable bilateral THAs Auto Winder: MURPHY Transcribe Date/Time: Apr 19 2022 12:31P Dictated by : JEANINE SALAZAR MD This examination was interpreted and the report reviewed and electronically signed by: JEANINE SALAZAR MD on Apr 19 2022 12:32PM EST [facility] Radiology Study observation (narrative) [facility] XR Pelvis APOrdered By: [facility] Provider on 04-19-2022 [facility] PAMELA SCREENINGon 09-29-2021 [facility] Large Joint Arthro/Inj: R kn ee joint [facility] Vital Signs Date Time Vital Sign Value Performing Clinician Facility 03-07-2024 10:38-0400 Body mass index (BMI) [Ratio] 23.29 kg/m2 Krislyn Aberegg PA Work Phone: [facility] 03-07-2024 10:38-0400 Body temperature 97.2 [degF] Krislyn Aberegg PA Work Phone: [facility] 03-07-2024 10:38-0400 Body weight 55.9 kg Krislyn Aberegg PA Work Phone: [facility] 03-07-2024 10:38-0400 Diastolic blood pressure 73 mm[Hg] Krislyn Aberegg PA Work Phone: [facility] 03-07-2024 10:38-0400 Heart rate 69 /min Krislyn Aberegg PA Work Phone: [facility] 03-07-2024 10:38-0400 Respiratory rate 16 /min Krislyn Aberegg PA Work Phone: [facility] 03-07-2024 10:38-0400 SaO2% (BldA) [Mass fraction] 100 % Krislyn Aberegg PA Work Phone: [facility] 03-07-2024 10:38-0400 Systolic blood pressure 157 mm[Hg] Krislyn Aberegg PA Work Phone: [facility] 02-20-2024 14:00-0400 Body temperature 98.2 [degF] [facility] Work Phone: [facility] 02-20-2024 14:00-0400 Diastolic blood pressure 73 mm[Hg] [facility] Work Phone: [facility] 02-20-2024 14:00-0400 Heart rate 56 /min [facility] Work Phone: [facility] 02-20-2024 14:00-0400 Respiratory rate 18 /min Treatment [facility] Work Phone: [facility] 02-20-2024 14:00-0400 SaO2% (BldA) [Mass fraction] 99 % [facility] Work Phone: [facility] 02-20-2024 14:00-0400 Systolic blood pressure 138 mm[Hg] Treatment [facility] Work Phone: [facility] 02-14-2024 09:23-0400 Diastolic blood pressure 73 mm[Hg] Zane Potter MD Work Phone: [facility] Comment on above: max bp average 02-14-2024 09:23-0400 Systolic blood pressure 144 mm[Hg] Zane Potter MD Work Phone: [facility] Comment on above: max bp average 02-14-2024 09:11-0400 Body height 154.9 cm Zane Potter MD Work Phone: [facility] 02-14-2024 09:11-0400 Body mass index (BMI) [Ratio] 22.99 kg/m2 Zane Potter MD Work Phone: [facility] 02-14-2024 09:11-0400 Body temperature 97.39 [degF] Zane Potter MD Work Phone: [facility] 02-14-2024 [id number] Body weight 55.2 kg Zane Potter MD Work Phone: [facility] 02-14-2024 09:11-0400 Heart rate 78 /min Zane Potter MD Work Phone: [facility] 02-14-2024 09:11-0400 Respiratory rate 12 /min Zane Potter MD Work Phone: [facility] 02-14-2024 09:11-0400 SaO2% (BldA) [Mass fraction] 100 % Zane Potter MD Work Phone: [facility] 01-23-2024 14:24-0400 Body mass index (BMI) [Ratio] 22.33 kg/m2 Treatment [facility] Work Phone: [facility] 01-23-2024 14:24-0400 Body temperature 99.19 [degF] Treatment [facility]str Work Phone: [facility] 01-23-2024 14:24-0400 Body weight 53.6 kg Treatment [facility]str Work Phone: [facility] 01-23-2024 14:24-0400 Diastolic blood pressure 79 mm[Hg] Treatment [facility]str Work Phone: [facility] 01-23-2024 14:24-0400 Heart rate 69 /min Treatment [facility]str Work Phone: [facility] 01-23-2024 14:24-0400 SaO2% (BldA) [Mass fraction] 97 % Treatment [facility]str Work Phone: [facility] 01-23-2024 14:24-0400 Systolic blood pressure 149 mm[Hg] Treatment [facility]str Work Phone: [facility] 01-20-2024 13:17-0400 Body mass index (BMI) [Ratio] 22.45 kg/m2 Erica MarcusVíctor SENIOR PUBLICATIONS SPECIALIST.EMISSION SPECIALIST Work Phone: [facility] 01-20-2024 13:17-0400 Body weight 53.9 kg Erica Renee SENIOR PUBLICATIONS SPECIALIST.EMISSION SPECIALIST Work Phone: [facility] 01-20-2024 13:17-0400 Diastolic blood pressure 74 mm[Hg] Erica MarcusVíctor SENIOR PUBLICATIONS SPECIALIST.EMISSION SPECIALIST Work Phone: [facility] 01-20-2024 13:17-0400 Heart rate 74 /min Erica MarcusVíctor SENIOR PUBLICATIONS SPECIALIST.EMISSION SPECIALIST Work Phone: [facility] 01-20-2024 13:17-0400 Respiratory rate 12 /min Erica MarcusVíctor SENIOR PUBLICATIONS SPECIALIST.EMISSION SPECIALIST Work Phone: [facility] 01-20-2024 13:17-0400 SaO2% (BldA) [Mass fraction] 98 % Erica MarcusVíctor SENIOR PUBLICATIONS SPECIALIST.EMISSION SPECIALIST Work Phone: [facility] 01-20-2024 13:17-0400 Systolic blood pressure 134 mm[Hg] Erica Víctor SENIOR PUBLICATIONS SPECIALIST.EMISSION SPECIALIST Work Phone: [facility] 12-26-2023 14:46-0400 Body temperature 98.2 [degF] Treatment Wstr Work Phone: [facility] 12-26-2023 14:46-0400 Diastolic blood pressure 67 mm[Hg] Treatment [facility]str Work Phone: [facility] 12-26-2023 14:46-0400 Heart rate 60 /min Treatment Wstr Work Phone: [facility] 12-26-2023 14:46-0400 SaO2% (BldA) [Mass fraction] 98 % Treatment [facility]str Work Phone: [facility] 12-26-2023 14:46-0400 Systolic blood pressure 116 mm[Hg] Treatment [facility]str Work Phone: [facility] 11-28-2023 13:00-0400 Body temperature 97.11 [degF] Treatment Wstr Work Phone: [facility] 11-28-2023 13:00-0400 Diastolic blood pressure 77 mm[Hg] Treatment [facility]str Work Phone: [facility] 11-28-2023 13:00-0400 Heart rate 53 /min Treatment Wstr Work Phone: [facility] 11-28-2023 13:00-0400 Systolic blood pressure 147 mm[Hg] Treatment [facility]str Work Phone: [facility] 10-31-2023 14:28-0400 Body mass index (BMI) [Ratio] 23.24 kg/m2 Treatment [facility]str Work Phone: [facility] 10-31-2023 14:28-0400 Body temperature 97.81 [degF] Treatment [facility]str Work Phone: [facility] 10-31-2023 14:28-0400 Body weight 55.79 kg Treatment Wstr Work Phone: [facility] 10-31-2023 14:28-0400 Diastolic blood pressure 55 mm[Hg] Treatment Wstr Work Phone: [facility] 10-31-2023 14:28-0400 Heart rate 63 /min Treatment Wstr Work Phone: [facility] 10-31-2023 14:28-0400 Respiratory rate 22 /min Treatment Wstr Work Phone: [facility] 10-31-2023 14:28-0400 Systolic blood pressure 132 mm[Hg] Treatment Wstr Work Phone: [facility] 10-17-2023 08:59-0400 Diastolic blood pressure 69 mm[Hg] Zane Potter MD Work Phone: [facility] 10-17-2023 08:59-0400 Heart rate 60 /min Zane Potter MD Work Phone: [facility] 10-17-2023 08:59-0400 Systolic blood pressure 156 mm[Hg] Zane Potter MD Work Phone: [facility] 10-17-2023 08:50-0400 Body height 154.9 cm Zane Potter MD Work Phone: [facility] 10-17-2023 08:50-0400 Body mass index (BMI) [Ratio] 22.67 kg/m2 Zane Potter MD Work Phone: [facility] 10-17-2023 08:50-0400 Body weight 54.43 kg Zane Potter MD Work Phone: [facility] 10-15-2023 10:35-0400 Body height 160 cm Vern Rico MD Work Phone: [facility] 10-15-2023 10:35-0400 Body mass index (BMI) [Ratio] 21.09 kg/m2 Vern Rico MD Work Phone: [facility] 10-15-2023 10:35-0400 Body temperature 97.81 [degF] Vern Rico MD Work Phone: [facility] 10-15-2023 10:35-0400 Body weight 54 kg Vern Rico MD Work Phone: [facility] 10-15-2023 10:35-0400 Diastolic blood pressure 79 mm[Hg] Vern Rico MD Work Phone: [facility] 10-15-2023 10:35-0400 Heart rate 62 /min Vern Rico MD Work Phone: [facility] 10-15-2023 10:35-0400 Systolic blood pressure 138 mm[Hg] Vern Rico MD Work Phone: [facility] 10-03-2023 14:07-0400 Body mass index (BMI) [Ratio] 23.05 kg/m2 Treatment [facility]str Work Phone: [facility] 10-03-2023 14:07-0400 Body temperature 97.81 [degF] Treatment [facility]str Work Phone: [facility] 10-03-2023 14:07-0400 Body weight 55.34 kg Treatment Wstr Work Phone: [facility] 10-03-2023 14:07-0400 Diastolic blood pressure 71 mm[Hg] Treatment Wstr Work Phone: [facility] 10-03-2023 14:07-0400 Heart rate 57 /min Treatment Wstr Work Phone: [facility] 10-03-2023 14:07-0400 SaO2% (BldA) [Mass fraction] 99 % Treatment [facility]str Work Phone: [facility] 10-03-2023 14:07-0400 Systolic blood pressure 158 mm[Hg] Treatment Wstr Work Phone: [facility] 09-05-2023 13:49-0400 Diastolic blood pressure 72 mm[Hg] Treatment Wstr Work Phone: [facility] 09-05-2023 13:49-0400 Heart rate 71 /min Treatment Wstr Work Phone: [facility] 09-05-2023 13:49-0400 SaO2% (BldA) [Mass fraction] 100 % Treatment [facility]str Work Phone: [facility] 09-05-2023 13:49-0400 Systolic blood pressure 154 mm[Hg] Treatment Wstr Work Phone: [facility] 08-05-2023 13:11-0400 Body temperature 98.2 [degF] Mikayla Evelyn CANDY CUTTER MACHINE Work Phone: [facility] 08-05-2023 13:11-0400 Diastolic blood pressure 78 mm[Hg] Mikayla Evelyn CANDY CUTTER MACHINE Work Phone: [facility] 08-05-2023 13:11-0400 Heart rate 62 /min Mikayla Evelyn CANDY CUTTER MACHINE Work Phone: [facility] 08-05-2023 13:11-0400 Respiratory rate 18 /min Mikayla Evelyn CANDY CUTTER MACHINE Work Phone: [facility] 08-05-2023 13:11-0400 SaO2% (BldA) [Mass fraction] 97 % Mikayla Evelyn CANDY CUTTER MACHINE Work Phone: [facility] 08-05-2023 13:11-0400 Systolic blood pressure 124 mm[Hg] Mikayla Evelyn CANDY CUTTER MACHINE Work Phone: [facility] 08-02-2023 09:49-0400 Body temperature 98.8 [degF] Marie Salvador PT Work Phone: [facility] 08-02-2023 09:49-0400 Diastolic blood pressure 68 mm[Hg] Marie Salvador PT Work Phone: [facility] 08-02-2023 09:49-0400 Heart rate 70 /min Marie Salvador PT Work Phone: [facility] 08-02-2023 09:49-0400 Respiratory rate 18 /min Marie Salvador PT Work Phone: [facility] 08-02-2023 09:49-0400 SaO2% (BldA) [Mass fraction] 99 % Marie Salvador PT Work Phone: [facility] 08-02-2023 09:49-0400 Systolic blood pressure 138 mm[Hg] Marie Salvador PT Work Phone: [facility] 07-31-2023 10:10-0400 Body temperature 98.8 [degF] Marie Kellerderman-Poole PT Work Phone: [facility] 07-31-2023 10:10-0400 Diastolic blood pressure 60 mm[Hg] Marie Kellerderman-Poole PT Work Phone: [facility] 07-31-2023 10:10-0400 Heart rate 66 /min Marie Voman-Poole PT Work Phone: [facility] 07-31-2023 10:10-0400 Respiratory rate 18 /min Marie Kellerderman-Poole PT Work Phone: [facility] 07-31-2023 10:10-0400 SaO2% (BldA) [Mass fraction] 98 % Marie Heredia-Poole PT Work Phone: [facility] 07-31-2023 10:10-0400 Systolic blood pressure 130 mm[Hg] Marie Heredia-Poole PT Work Phone: [facility] 07-29-2023 10:24-0400 Body temperature 98.29 [degF] Marie Heredia-Poole PT Work Phone: [facility] 07-29-2023 10:24-0400 Diastolic blood pressure 70 mm[Hg] Marie Kellerderman-Poole PT Work Phone: [facility] 07-29-2023 10:24-0400 Heart rate 67 /min Marie Heredia-Poole PT Work Phone: [facility] 07-29-2023 10:24-0400 Respiratory rate 18 /min Marie Kellerderman-Poole PT Work Phone: [facility] 07-29-2023 10:24-0400 SaO2% (BldA) [Mass fraction] 99 % Marie Halasyaman-Poole PT Work Phone: [facility] 07-29-2023 10:24-0400 Systolic blood pressure 146 mm[Hg] Marie HalasyajossGina PT Work Phone: [facility] 07-26-2023 10:26-0400 Body temperature 97.39 [degF] Marie HalasyajossGina PT Work Phone: [facility] 07-26-2023 10:26-0400 Diastolic blood pressure 74 mm[Hg] Marie Salvador PT Work Phone: [facility] 07-26-2023 10:26-0400 Heart rate 74 /min Marie HalVirgilio PT Work Phone: [facility] 07-26-2023 10:26-0400 Respiratory rate 18 /min Marie KellerasyajossGina PT Work Phone: [facility] 07-26-2023 10:26-0400 SaO2% (BldA) [Mass fraction] 99 % Marie HalasyajossGina PT Work Phone: [facility] 07-26-2023 10:26-0400 Systolic blood pressure 162 mm[Hg] Marie KellerasyajossGina PT Work Phone: [facility] 07-05-2023 13:58-0500 Body temperature 97.9 [degF] Treatment Wstr Work Phone: [facility] 07-05-2023 13:58-0500 Body weight 56.7 kg Treatment Wstr Work Phone: [facility] 07-05-2023 13:58-0500 Diastolic blood pressure 81 mm[Hg] Treatment Wstr Work Phone: [facility] 07-05-2023 13:58-0500 Heart rate 65 /min Treatment Wstr Work Phone: [facility] 07-05-2023 13:58-0500 Respiratory rate 16 /min Treatment [facility]str Work Phone: [facility] 07-05-2023 13:58-0500 Systolic blood pressure 156 mm[Hg] Treatment Wstr Work Phone: [facility] 07-03-2023 09:13-0500 Body height 156.2 cm Pacc 1 Work Phone: [facility] 07-03-2023 09:13-0500 Body temperature 97.9 [degF] Pacc 1 Work Phone: [facility] 07-03-2023 09:13-0500 Body weight 58.97 kg Pacc 1 Work Phone: [facility] 07-03-2023 09:13-0500 Diastolic blood pressure 72 mm[Hg] Pacc 1 Work Phone: [facility] 07-03-2023 09:13-0500 Heart rate 62 /min Pacc 1 Work Phone: [facility] 07-03-2023 09:13-0500 Respiratory rate 14 /min Pacc 1 Work Phone: [facility] 07-03-2023 09:13-0500 SaO2% (BldA) [Mass fraction] 100 % Pacc 1 Work Phone: [facility] 07-03-2023 09:13-0500 Systolic blood pressure 112 mm[Hg] Pacc 1 Work Phone: [facility] 04-10-2023 13:52-0500 Body temperature 97.59 [degF] Treatment Wstr Work Phone: [facility] 04-10-2023 13:52-0500 Diastolic blood pressure 78 mm[Hg] Treatment Wstr Work Phone: [facility] 04-10-2023 13:52-0500 Heart rate 65 /min Treatment Wstr Work Phone: [facility] 04-10-2023 13:52-0500 Systolic blood pressure 150 mm[Hg] Treatment Wstr Work Phone: [facility] 03-13-2023 13:17-0400 Body temperature 97.7 [degF] Treatment Wstr Work Phone: [facility] 03-13-2023 13:17-0400 Body weight 56.7 kg Treatment Wstr Work Phone: [facility] 03-13-2023 13:17-0400 Diastolic blood pressure 56 mm[Hg] Treatment Wstr Work Phone: [facility] 03-13-2023 13:17-0400 Heart rate 60 /min Treatment Wstr Work Phone: [facility] 03-13-2023 13:17-0400 SaO2% (BldA) [Mass fraction] 100 % Treatment Wstr Work Phone: [facility] 03-13-2023 13:17-0400 Systolic blood pressure 139 mm[Hg] Treatment Wstr Work Phone: [facility] 02-14-2023 14:03-0400 Body temperature 98.1 [degF] Treatment Wstr Work Phone: [facility] 02-14-2023 14:03-0400 Diastolic blood pressure 50 mm[Hg] Treatment Wstr Work Phone: [facility] 02-14-2023 14:03-0400 Heart rate 53 /min Treatment Wstr Work Phone: [facility] 02-14-2023 14:03-0400 Systolic blood pressure 126 mm[Hg] Treatment Wstr Work Phone: [facility] 01-16-2023 13:25-0400 Body temperature 97.9 [degF] Treatment Wstr Work Phone: [facility] 01-16-2023 13:25-0400 Diastolic blood pressure 48 mm[Hg] Treatment Wstr Work Phone: [facility] 01-16-2023 13:25-0400 Heart rate 63 /min Treatment Wstr Work Phone: [facility] 01-16-2023 13:25-0400 Respiratory rate 18 /min Treatment Wstr Work Phone: [facility] 01-16-2023 13:25-0400 SaO2% (BldA) [Mass fraction] 100 % Treatment Wstr Work Phone: [facility] 01-16-2023 13:25-0400 Systolic blood pressure 122 mm[Hg] Treatment Wstr Work Phone: [facility] 12-20-2022 15:00-0400 Body temperature 97.59 [degF] Treatment Wstr Work Phone: [facility] 12-20-2022 15:00-0400 Diastolic blood pressure 58 mm[Hg] Treatment Wstr Work Phone: [facility] 12-20-2022 15:00-0400 Heart rate 59 /min Treatment Wstr Work Phone: [facility] 12-20-2022 15:00-0400 Systolic blood pressure 136 mm[Hg] Treatment Wstr Work Phone: [facility] 11-29-2022 09:41-0400 Body weight 55.34 kg Sasha Pollock SENIOR PUBLICATIONS SPECIALIST.EMISSION SPECIALIST Work Phone: [facility] 11-29-2022 09:41-0400 Diastolic blood pressure 82 mm[Hg] Sasha Pollock SENIOR PUBLICATIONS SPECIALIST.EMISSION SPECIALIST Work Phone: [facility] 11-29-2022 09:41-0400 Heart rate 64 /min Sasha Pollock SENIOR PUBLICATIONS SPECIALIST.EMISSION SPECIALIST Work Phone: [facility] 11-29-2022 09:41-0400 Respiratory rate 12 /min Sasha Pollock SENIOR PUBLICATIONS SPECIALIST.EMISSION SPECIALIST Work Phone: [facility] 11-29-2022 09:41-0400 Systolic blood pressure 146 mm[Hg] Sasha Pollock SENIOR PUBLICATIONS SPECIALIST.EMISSION SPECIALIST Work Phone: [facility] 11-07-2022 16:00-0400 Diastolic blood pressure 70 mm[Hg] Contreras Golias PT Work Phone: [facility] 11-07-2022 16:00-0400 Systolic blood pressure 110 mm[Hg] Contreras Golias PT Work Phone: [facility] 10-24-2022 13:22-0400 Body weight 55.79 kg Treatment Wstr Work Phone: [facility] 10-24-2022 13:22-0400 Diastolic blood pressure 41 mm[Hg] Treatment Wstr Work Phone: [facility] 10-24-2022 13:22-0400 Heart rate 61 /min Treatment Wstr Work Phone: [facility] 10-24-2022 13:22-0400 Respiratory rate 16 /min Treatment Wstr Work Phone: [facility] 10-24-2022 13:22-0400 SaO2% (BldA) [Mass fraction] 100 % Treatment Wstr Work Phone: [facility] 10-24-2022 13:22-0400 Systolic blood pressure 114 mm[Hg] Treatment Wstr Work Phone: [facility] 10-17-2022 09:08-0400 Diastolic blood pressure 67 mm[Hg] Jules MURGUIA-C Work Phone: [facility] 10-17-2022 09:08-0400 Heart rate 60 /min Jules MURGUIA-C Work Phone: [facility] 10-17-2022 09:08-0400 Systolic blood pressure 148 mm[Hg] Jules MURGUIA-C Work Phone: [facility] 10-17-2022 08:57-0400 Body height 157.5 cm Jules MURGUIA-C Work Phone: [facility] 10-17-2022 08:57-0400 Body weight 56.11 kg Jules MURGUIA-C Work Phone: [facility] 10-17-2022 08:57-0400 SaO2% (BldA) [Mass fraction] 100 % Jules SINGHC Work Phone: [facility] 08-29-2022 12:51-0400 Body temperature 97.7 [degF] Treatment Wstr Work Phone: [facility] 08-29-2022 12:51-0400 Body weight 55.79 kg Treatment Wstr Work Phone: [facility] 08-29-2022 12:51-0400 Diastolic blood pressure 72 mm[Hg] Treatment Wstr Work Phone: [facility] 08-29-2022 12:51-0400 Heart rate 69 /min Treatment Wstr Work Phone: [facility] 08-29-2022 12:51-0400 Systolic blood pressure 164 mm[Hg] Treatment Wstr Work Phone: [facility] 08-01-2022 13:00-0400 Body temperature 97.2 [degF] Treatment Wstr Work Phone: [facility] 08-01-2022 13:00-0400 Diastolic blood pressure 52 mm[Hg] Treatment Wstr Work Phone: [facility] 08-01-2022 13:00-0400 Heart rate 62 /min Treatment Wstr Work Phone: [facility] 08-01-2022 13:00-0400 Systolic blood pressure 129 mm[Hg] Treatment Wstr Work Phone: [facility] 07-12-2022 08:27-0500 Body height 156.5 cm Karina Cabreraf SENIOR PUBLICATIONS SPECIALIST.EMISSION SPECIALIST Work Phone: [facility] 07-12-2022 08:27-0500 Body weight 56.7 kg Karina Cabreraf SENIOR PUBLICATIONS SPECIALIST.EMISSION SPECIALIST Work Phone: [facility] 07-12-2022 08:27-0500 Diastolic blood pressure 80 mm[Hg] Karina Bunnhof SENIOR PUBLICATIONS SPECIALIST.EMISSION SPECIALIST Work Phone: [facility] 07-12-2022 08:27-0500 Heart rate 44 /min Karina Bunnhof SENIOR PUBLICATIONS SPECIALIST.EMISSION SPECIALIST Work Phone: [facility] 07-12-2022 08:27-0500 Respiratory rate 16 /min Karina Bunnhof SENIOR PUBLICATIONS SPECIALIST.EMISSION SPECIALIST Work Phone: [facility] 07-12-2022 08:27-0500 SaO2% (BldA) [Mass fraction] 95 % Karina Bunnhof SENIOR PUBLICATIONS SPECIALIST.EMISSION SPECIALIST Work Phone: [facility] 07-12-2022 08:27-0500 Systolic blood pressure 160 mm[Hg] Karina Aranda APRN.EMISSION SPECIALIST Work Phone: [facility] 07-04-2022 13:27-0500 Body temperature 97.39 [degF] Treatment Wstr Work Phone: [facility] 07-04-2022 13:27-0500 Body weight 56.25 kg Treatment Wstr Work Phone: [facility] 07-04-2022 13:27-0500 Diastolic blood pressure 43 mm[Hg] Treatment Wstr Work Phone: [facility] 07-04-2022 13:27-0500 Heart rate 58 /min Treatment Wstr Work Phone: [facility] 07-04-2022 13:27-0500 Respiratory rate 16 /min Treatment Wstr Work Phone: [facility] 07-04-2022 13:27-0500 SaO2% (BldA) [Mass fraction] 100 % Treatment Wstr Work Phone: [facility] 07-04-2022 13:27-0500 Systolic blood pressure 137 mm[Hg] Treatment Wstr Work Phone: [facility] 06-06-2022 13:27-0500 Body temperature 97 [degF] Treatment Wstr Work Phone: [facility] 06-06-2022 13:27-0500 Body weight 56.7 kg Treatment Wstr Work Phone: [facility] 06-06-2022 13:27-0500 Diastolic blood pressure 50 mm[Hg] Treatment Wstr Work Phone: [facility] 06-06-2022 13:27-0500 Heart rate 58 /min Treatment Wstr Work Phone: [facility] 06-06-2022 13:27-0500 SaO2% (BldA) [Mass fraction] 100 % Treatment Wstr Work Phone: [facility] 06-06-2022 13:27-0500 Systolic blood pressure 150 mm[Hg] Treatment Wstr Work Phone: [facility] 05-09-2022 12:00-0500 Body temperature 97.9 [degF] Treatment Wstr Work Phone: [facility] 05-09-2022 12:00-0500 Diastolic blood pressure 83 mm[Hg] Treatment Wstr Work Phone: [facility] 05-09-2022 12:00-0500 Heart rate 72 /min Treatment Wstr Work Phone: [facility] 05-09-2022 12:00-0500 Systolic blood pressure 123 mm[Hg] Treatment Wstr Work Phone: [facility] 05-02-2022 10:18-0500 Diastolic blood pressure 79 mm[Hg] Anjana Clark SENIOR PUBLICATIONS SPECIALIST.EMISSION SPECIALIST Work Phone: [facility] 05-02-2022 10:18-0500 Heart rate 61 /min Anjana Clark SENIOR PUBLICATIONS SPECIALIST.EMISSION SPECIALIST Work Phone: [facility] 05-02-2022 10:18-0500 Systolic blood pressure 179 mm[Hg] Anjana Clark SENIOR PUBLICATIONS SPECIALIST.EMISSION SPECIALIST Work Phone: [facility] 05-02-2022 10:16-0500 Body height 160 cm Anjana Clark SENIOR PUBLICATIONS SPECIALIST.EMISSION SPECIALIST Work Phone: [facility] 05-02-2022 10:16-0500 Body temperature 97.7 [degF] Anjana Clark SENIOR PUBLICATIONS SPECIALIST.EMISSION SPECIALIST Work Phone: [facility] 05-02-2022 10:16-0500 Body weight 54.43 kg Anjana Clark SENIOR PUBLICATIONS SPECIALIST.EMISSION SPECIALIST Work Phone: [facility] 02-27-2022 13:00-0400 Diastolic blood pressure 67 mm[Hg] Treatment Wstr Work Phone: [facility] 02-27-2022 13:00-0400 Heart rate 68 /min Treatment Wstr Work Phone: [facility] 02-27-2022 13:00-0400 Systolic blood pressure 140 mm[Hg] Treatment Wstr Work Phone: [facility] 01-23-2022 15:32-0400 Body temperature 98.1 [degF] Treatment Wstr Work Phone: [facility] 01-23-2022 15:32-0400 Diastolic blood pressure 57 mm[Hg] Treatment Wstr Work Phone: [facility] 01-23-2022 15:32-0400 Heart rate 65 /min Treatment Wstr Work Phone: [facility] 01-23-2022 15:32-0400 Respiratory rate 16 /min Treatment Wstr Work Phone: [facility] 01-23-2022 15:32-0400 Systolic blood pressure 121 mm[Hg] Treatment Wstr Work Phone: [facility] 01-11-2022 14:09-0400 Body weight 56.2 kg Jerry Arnold MD Work Phone: [facility] 01-11-2022 14:09-0400 Diastolic blood pressure 70 mm[Hg] Jerry Arnold MD Work Phone: [facility] 01-11-2022 14:09-0400 Heart rate 56 /min Jerry Arnold MD Work Phone: [facility] 01-11-2022 14:09-0400 Respiratory rate 16 /min Jerry Arnold MD Work Phone: [facility] 01-11-2022 14:09-0400 SaO2% (BldA) [Mass fraction] 100 % Jerry Arnold MD Work Phone: [facility] 01-11-2022 14:09-0400 Systolic blood pressure 118 mm[Hg] Jerry Arnold MD Work Phone: [facility] 01-09-2022 14:37-0400 Body height 160 cm Emily Radford APRN.CNP Work Phone: [facility] 01-09-2022 14:37-0400 Body weight 54.88 kg Emily Rapaport SENIOR PUBLICATIONS SPECIALIST.EMISSION SPECIALIST Work Phone: [facility] 01-09-2022 14:37-0400 Diastolic blood pressure 62 mm[Hg] Emily Rapaport SENIOR PUBLICATIONS SPECIALIST.EMISSION SPECIALIST Work Phone: [facility] 01-09-2022 14:37-0400 Heart rate 51 /min Emily Rapaport SENIOR PUBLICATIONS SPECIALIST.EMISSION SPECIALIST Work Phone: [facility] 01-09-2022 14:37-0400 SaO2% (BldA) [Mass fraction] 98 % Emily Rapaport SENIOR PUBLICATIONS SPECIALIST.EMISSION SPECIALIST Work Phone: [facility] 01-09-2022 14:37-0400 Systolic blood pressure 160 mm[Hg] Emily Rapaport SENIOR PUBLICATIONS SPECIALIST.EMISSION SPECIALIST Work Phone: [facility] 11-28-2021 15:31-0400 Body temperature 98.4 [degF] Treatment Wstr Work Phone: [facility] 11-28-2021 15:31-0400 Diastolic blood pressure 69 mm[Hg] Treatment Wstr Work Phone: [facility] 11-28-2021 15:31-0400 Heart rate 64 /min Treatment Wstr Work Phone: [facility] 11-28-2021 15:31-0400 Respiratory rate 16 /min Treatment Wstr Work Phone: [facility] 11-28-2021 15:31-0400 Systolic blood pressure 142 mm[Hg] Treatment Wstr Work Phone: [facility] 11-02-2021 14:03-0400 Diastolic blood pressure 77 mm[Hg] Anjana Clark SENIOR PUBLICATIONS SPECIALIST.EMISSION SPECIALIST Work Phone: [facility] 11-02-2021 14:03-0400 Heart rate 61 /min Anjana Clark SENIOR PUBLICATIONS SPECIALIST.EMISSION SPECIALIST Work Phone: [facility] 11-02-2021 14:03-0400 Systolic blood pressure 147 mm[Hg] Anjana Clark SENIOR PUBLICATIONS SPECIALIST.EMISSION SPECIALIST Work Phone: [facility] 11-02-2021 14:01-0400 Body height 160 cm Anjana Jones SENIOR PUBLICATIONS SPECIALIST.EMISSION SPECIALIST Work Phone: [facility] 11-02-2021 14:01-0400 Body temperature 96.91 [degF] Anjana Clark SENIOR PUBLICATIONS SPECIALIST.EMISSION SPECIALIST Work Phone: [facility] 11-02-2021 14:01-0400 Body weight 55.34 kg Anjana Clark SENIOR PUBLICATIONS SPECIALIST.EMISSION SPECIALIST Work Phone: [facility] 10-31-2021 13:00-0400 Body temperature 98.49 [degF] Treatment Wstr Work Phone: [facility] 10-31-2021 13:00-0400 Body weight 57.15 kg Treatment Wstr Work Phone: [facility] 10-31-2021 13:00-0400 Diastolic blood pressure 71 mm[Hg] Treatment Wstr Work Phone: [facility] 10-31-2021 13:00-0400 Heart rate 60 /min Treatment Wstr Work Phone: [facility] 10-31-2021 13:00-0400 Respiratory rate 16 /min Treatment Wstr Work Phone: [facility] 10-31-2021 13:00-0400 Systolic blood pressure 157 mm[Hg] Treatment Wstr Work Phone: [facility] 10-31-2021 11:08-0400 Body height 153.5 cm Char Alfaro DO Work Phone: [facility] 10-31-2021 11:08-0400 Body weight 56.7 kg Char Alfaro DO Work Phone: [facility] 10-31-2021 11:08-0400 Diastolic blood pressure 65 mm[Hg] Char Alfaro DO Work Phone: [facility] 10-31-2021 11:08-0400 Heart rate 59 /min Char Alfaro DO Work Phone: [facility] 10-31-2021 11:08-0400 SaO2% (BldA) [Mass fraction] 100 % Treatment Wstr Work Phone: [facility] 10-31-2021 11:08-0400 Systolic blood pressure 149 mm[Hg] Char Alfaro DO Work Phone: [facility] 09-22-2021 13:54-0400 Body height 153.5 cm Char Alfaro DO Work Phone: [facility] 09-22-2021 13:54-0400 Body weight 56.7 kg Char Alfaro DO Work Phone: [facility] 09-22-2021 13:54-0400 Diastolic blood pressure 68 mm[Hg] Char Alfaro DO Work Phone: [facility] 09-22-2021 13:54-0400 Heart rate 59 /min Char Alfaro DO Work Phone: [facility] 09-22-2021 13:54-0400 SaO2% (BldA) [Mass fraction] 100 % Char Alfaro DO Work Phone: [facility] 09-22-2021 13:54-0400 Systolic blood pressure 110 mm[Hg] Char Alfaro DO Work Phone: [facility] 09-14-2021 14:31-0400 Body temperature 97.59 [degF] Treatment Wstr Work Phone: [facility] 09-14-2021 14:31-0400 Diastolic blood pressure 52 mm[Hg] Treatment Wstr Work Phone: [facility] 09-14-2021 14:31-0400 Heart rate 65 /min Treatment Wstr Work Phone: [facility] 09-14-2021 14:31-0400 Systolic blood pressure 168 mm[Hg] Treatment Wstr Work Phone: [facility] 08-15-2021 13:13-0400 Body temperature 97.7 [degF] Treatment Wstr Work Phone: [facility] 08-15-2021 13:13-0400 Body weight 58.97 kg Treatment Wstr Work Phone: [facility] 08-15-2021 13:13-0400 Diastolic blood pressure 47 mm[Hg] Treatment Wstr Work Phone: [facility] 08-15-2021 13:13-0400 Heart rate 60 /min Treatment Wstr Work Phone: [facility] 08-15-2021 13:13-0400 Systolic blood pressure 127 mm[Hg] Treatment Wstr Work Phone: [facility] 08-07-2021 13:14-0400 Body height 153.5 cm Karina Tannhof SENIOR PUBLICATIONS SPECIALIST.EMISSION SPECIALIST Work Phone: [facility] 08-07-2021 13:14-0400 Body weight 57.61 kg Karina Tannhof SENIOR PUBLICATIONS SPECIALIST.EMISSION SPECIALIST Work Phone: [facility] 08-07-2021 13:14-0400 Diastolic blood pressure 62 mm[Hg] Karina Tannhof SENIOR PUBLICATIONS SPECIALIST.EMISSION SPECIALIST Work Phone: [facility] 08-07-2021 13:14-0400 Heart rate 68 /min Karina Tannhof SENIOR PUBLICATIONS SPECIALIST.EMISSION SPECIALIST Work Phone: [facility] 08-07-2021 13:14-0400 Respiratory rate 16 /min Karina Tannhof SENIOR PUBLICATIONS SPECIALIST.EMISSION SPECIALIST Work Phone: [facility] 08-07-2021 13:14-0400 SaO2% (BldA) [Mass fraction] 98 % Karina Tannhof SENIOR PUBLICATIONS SPECIALIST.EMISSION SPECIALIST Work Phone: [facility] 08-07-2021 13:14-0400 Systolic blood pressure 120 mm[Hg] Karina Tannhof SENIOR PUBLICATIONS SPECIALIST.EMISSION SPECIALIST Work Phone: [facility] Encounters Encounter Date Encounter Type Care Provider Facility Start: 03-07-2024 End: 03-07-2024 Patient encounter procedure Aruna MURGUIA Work Phone: [facility] Comment on above: Parotid sialadenitis (Primary Dx) Start: 02-20-2024 End: 02-20-2024 ambulatory DEE MILLER Facility:[facility] Comment on above: Seropositive rheumat oid arthritis (HCC) (Primary Dx) Start: 02-20-2024 End: 02-20-2024 Patient encounter procedure Mando Giron APRN.EMISSION SPECIALIST Work Phone: Orthopaedics Comment on above: Leg length discrepan cy (Primary Dx); Status post right knee replacement; Gait instability Start: 02-20-2024 ambulatory ZANE POTTER [facility] lity:[facility] Start: 02-20-2024 End: 02-20-2024 Subsequent hospital visit by physician [facility] [address] [facility] Work Phone: Radiology Comment on above: Chronic pain of righ t knee [M25.561, G89.29] Start: 02-14-2024 End: 02-14-2024 ambulatory ZANE POTTER Facility:[facility] Start: 02-14-2024 End: 02-14-2024 Office outpatient visit 15 minutes Zane Potter MD Work Phone: [facility] [place] Comment on above: Primary hypertension (Primary Dx); Need for influenza vaccination; Chronic right shoulder pain; Need for COVID-19 vaccine Start: 02-03-2024 End: 02-03-2024 ambulatory Erica Renee APRN.EMISSION SPECIALIST Work Phone: [facility] [place] Comment on above: x-ray results Start: 02-03-2024 End: 02-03-2024 E-mail encounter from caregiver Erica Renee APRN.EMISSION SPECIALIST Work Phone: [facility] [place] Start: 02-01-2024 End: 02-03-2024 ambulatory Vern Rico MD Work Phone: Rheumatology Comment on above: [employer] Start: 01-23-2024 End: 01-23-2024 ambulatory DEE MILLER Hematology/Oncology Comment on above: Seropositive rheumat oid arthritis (HCC) (Primary Dx) Start: 01-23-2024 End: 01-23-2024 Patient encounter procedure Treatment Rm 14 Walker [facility] Work Phone: Hematology/Oncology Start: 01-20-2024 End: 01-20-2024 Subsequent hospital visit by physician Xr [facility] Work Phone: Radiology Comment on above: Chronic right should er pain [M25.511, G89.29] Start: 01-20-2024 End: 01-20-2024 ambulatory ERICA Lisa VÍCTOR Facility:[facility] Start: 01-20-2024 End: 01-20-2024 Patient encounter procedure Erica Gonzalez Víctor SENIOR PUBLICATIONS SPECIALIST.EMISSION SPECIALIST Work Phone: [facility] [place] Comment on above: Chronic right should er pain (Primary Dx) Start: 01-17-2024 End: 01-17-2024 Refill Vern Rico MD Work Phone: Rheumatology Comment on above: Refill Request Start: 01-15-2024 End: 01-15-2024 ambulatory KERN VALLEY Facility:[facility] Start: 01-14-2024 End: 01-14-2024 Refill Vern Rico MD Work Phone: Rheumatology Comment on above: Refill Request Start: 12-30-2023 End: 12-30-2023 [facility] Facility:[facility] Start: 12-30-2023 End: 12-30-2023 Subsequent hospital visit by physician Bone Density [facility] Work Phone: Radiology Comment on above: Osteopenia of multip le sites [M85.89] Start: 12-26-2023 End: 12-26-2023 ambulatory DEE D MANZON Hematology/Oncology Comment on above: Seropositive rheumat oid arthritis (HCC) (Primary Dx); Osteopenia of multiple sites Start: 12-26-2023 End: 12-26-2023 Patient encounter procedure Treatment Rm 14 Walker [facility] Work Phone: Hematology/Oncology Start: 12-25-2023 Telephone encounter Nia silverman [facility] HB[facility] Start: 11-28-2023 End: 11-28-2023 ambulatory DEE D MANZON Hematology/Oncology Comment on above: Malignant neoplasm o f skin (Primary Dx); Seropositive rheumatoid arthritis (HCC) Start: 11-28-2023 End: 11-28-2023 Patient encounter procedure Treatment Rm 14 Walker [facility] Work Phone: Hematology/Oncology Start: 11-28-2023 End: 11-28-2023 ambulatory ZANE POTTER Facility:[facility] Start: 11-26-2023 Telephone encounter Salvatore dewitt DO Work Phone: Hematology/Oncology Comment on above: Additional Labs Start: 10-31-2023 End: 10-31-2023 ambulatory Treatment Rm 13 Walker [facility] Work Phone: Hematology/Oncology Comment on above: Seropositive rheumat oid arthritis (HCC) (Primary Dx) Start: 10-17-2023 End: 10-17-2023 ambulatory KERN VALLEY Facility:[facility] Start: 10-17-2023 End: 10-17-2023 Patient encounter procedure Zane Potter MD Work Phone: [facility] [place] Comment on above: Medicare annual well ness visit, subsequent (Primary Dx); Acquired hypothyroidism; Venous insufficiency; Urge incontinence; Elevated blood pressure reading; Anxiety neurosis; Need for COVID-19 vaccine; Screening for colon cancer; Primary hypertension Start: 10-15-2023 Telephone encounter Vern Sutherland MD Work Phone: Rheumatology Comment on above: Resident Care Technician - O ther (Reclast+Orencia ) Start: 10-15-2023 End: 10-15-2023 ambulatory KERN VALLEY Facility:[facility] Start: 10-15-2023 End: 10-15-2023 Patient encounter procedure Vern Rico MD Work Phone: Rheumatology Comment on above: Seropositive rheumat oid arthritis (HCC) (Primary Dx); Long-term use of immunosuppressant medication; Osteopenia of multiple sites; Encounter for long-term (current) use of medications; Generalized osteoarthrosis Start: 10-10-2023 End: 10-10-2023 ambulatory KERN VALLEY Facility:[facility] Start: 10-03-2023 End: 10-03-2023 ambulatory Treatment Rm 13 Walker [facility] Work Phone: Hematology/Oncology Comment on above: Seropositive rheumat oid arthritis (HCC) (Primary Dx) Start: 10-02-2023 Documentation procedure Mammog rosemarie Coordinator [facility] Department Start: 10-02-2023 Letter encounter Mammography Coordinator [facility] Department Start: 10-02-2023 End: 10-02-2023 Orders Only Venr Rico MD Work Phone: Rheumatology Comment on above: Encounter for screen ing mammogram for malignant neoplasm of breast [Z12.31] Start: 09-23-2023 ambulatory Po Delgadillo APRN.EMISSION SPECIALIST Work Phone: Family [facility] [place] Comment on above: Medication Start: 09-17-2023 End: 09-17-2023 ambulatory SABINA JEFFERSON Facility:[facility] Start: 09-17-2023 End: 09-17-2023 Patient encounter procedure Sabina Jefferson MD Work Phone: Orthopaedics Comment on above: Status post right kn ee replacement (Primary Dx) Start: 09-17-2023 End: 09-17-2023 ambulatory Geoffrey Anand PT Work Phone: [facility] Comment on above: Primary osteoarthrit is of right knee (Primary Dx) Start: 09-13-2023 End: 09-13-2023 ambulatory Geoffrey Anand PT Work Phone: [facility] Comment on above: Primary osteoarthrit is of right knee Start: 09-05-2023 End: 09-05-2023 ambulatory Treatment Rm 13 Walker [facility] Work Phone: Hematology/Oncology Comment on above: Seropositive rheumat oid arthritis (HCC) (Primary Dx) Primary osteoarthrit is of right knee (Primary Dx) Start: 08-30-2023 End: 08-30-2023 ambulatory Geoffrey Anand PT Work Phone: [facility] Comment on above: Primary osteoarthrit is of right knee (Primary Dx) Start: 08-28-2023 End: 08-28-2023 ambulatory Geoffrey Anand PT Work Phone: [facility] Comment on above: Primary osteoarthrit is of right knee (Primary Dx) Start: 08-23-2023 End: 08-23-2023 ambulatory Willy Pride PT Work Phone: [facility] Comment on above: Primary osteoarthrit is of right knee (Primary Dx) Start: 08-21-2023 End: 08-21-2023 ambulatory Geoffrey Daniel PT Work Phone: [facility] Comment on above: Primary osteoarthrit is of right knee (Primary Dx) Start: 08-16-2023 End: 08-16-2023 ambulatory Geoffrey Daniel PT Work Phone: [facility] Comment on above: Primary osteoarthrit is of right knee (Primary Dx) Start: 08-13-2023 End: 08-13-2023 ambulatory Geoffrey Daniel PT Work Phone: [facility] Comment on above: Primary osteoarthrit is of right knee (Primary Dx) Start: 08-12-2023 Refill Karina Aranda APRN.EMISSION SPECIALIST Work Phone: [facility] Comment on above: Refill Request Start: 08-11-2023 ambulatory Po Delgadillo APRN.EMISSION SPECIALIST Work Phone: [facility] Comment on above: Renew Ativan Start: 08-08-2023 End: 08-08-2023 ambulatory DEE MILLER Facility:[facility] Start: 08-06-2023 End: 08-06-2023 Nursing evaluation of patient and report Hira Ruiz RN Orthopaedics Comment on above: Status post right kn ee replacement (Primary Dx) Start: 08-06-2023 End: 08-06-2023 ambulatory JERRY ARNOLD Facility:[facility] Start: 08-06-2023 End: 08-06-2023 Subsequent hospital visit by physician Radio General Tammie Carrillo Work Phone: Radiology Comment on above: Right knee pain, uns pecified chronicity [M25.561] Start: 08-05-2023 ambulatory Jerry quiñones MD Work Phone: [facility] Comment on above: New prescriptions Start: 08-05-2023 Refill Vern Rico MD Work Phone: Rheumatology Comment on above: Refill Request Start: 08-05-2023 End: 08-05-2023 Home visit Mikayla Rivas CANDY CUTTER MACHINE Work Phone: [facility] Comment on above: CANDY CUTTER MACHINE ROUTINE Start: 08-02-2023 ambulatory Vern Rico MD Work Phone: Rheumatology Comment on above: New prescriptions Start: 08-02-2023 End: 08-02-2023 Home visit Marie Salvador PT Work Phone: [facility] Comment on above: PT ROUTINE Start: 08-01-2023 ambulatory Contreras Maxwell T Work Phone: [facility] Comment on above: MY PT Start: 07-31-2023 Telephone encounter Marie Salvador PT Work Phone: [facility] Comment on above: Home Care (OP PT ord ers) Refill Request Start: 07-31-2023 End: 07-31-2023 Home visit Marie Salvador PT Work Phone: [facility] Comment on above: PT ROUTINE Start: 07-29-2023 End: 07-29-2023 Home visit Onelia KempRn) Jorge BROWNING Work Phone: [facility] Comment on above: CARE COORDINATION PT ROUTINE Start: 07-28-2023 ambulatory Vern Rico MD Work Phone: Rheumatology Comment on above: Cancel appt Start: 07-26-2023 Telephone encounter Marie Salvador PT Work Phone: [facility] Comment on above: Home Care (Medicatio n interaction) Start: 07-26-2023 End: 07-26-2023 Home visit Marie Salvador PT Work Phone: [facility] Comment on above: PT SOC Start: 07-25-2023 Refill Sabina Edwards Work Phone: Orthopaedics Comment on above: Refill Request Start: 07-23-2023 ambulatory Jerry Edwards Justyn quiñones MD Work Phone: [facility] [place] Comment on above: Mammogram Start: 07-23-2023 Telephone encounter Gage Maxwell [facility] Comment on above: Home Care (Confirmat ion Call ) Start: 07-22-2023 End: 07-24-2023 Evaluation and management of inpatient JERRY Edwards [place] Facility:[facility] Start: 07-16-2023 Telephone encounter Sabina rutledge MD Work Phone: Orthopaedics Comment on above: Patient Question Start: 07-05-2023 End: 07-05-2023 ambulatory Treatment Rm 13 Walker [facility] Work Phone: Hematology/Oncology Comment on above: Seropositive rheumat oid arthritis (HCC) (Primary Dx) Start: 07-03-2023 Admission to [facility] Vern Rico MD Work Phone: Rheumatology Comment on above: Prepare for surgery Start: 07-03-2023 End: 07-03-[address] [facility] [place] 1 Work Phone: Pre Anesthesia Comment on above: Pre-operative examin ation (Primary Dx); Anemia due to acute blood loss; Acquired hypothyroidism; Facet hypertrophy of lumbar region; History of DVT of lower extremity; History of transient ischemic attack (TIA); Hypocalcemia; Insomnia, unspecified type; Malignant neoplasm of skin; Mixed hyperlipidemia; Osteopenia of multiple sites; Other specified rheumatoid arthritis, multiple sites (HCC); S/P total knee replacement using cement, left; Status post total replacement of both hips; Urge incontinence; Venous insufficiency; History of diverticulitis Start: 07-03-2023 End: 07-03-2023 Admission to [facility] 1 Work Phone: [facility] Start: 07-03-2023 End: 07-03-2023 Preprocedural examination done Pac [place] 1 Work Phone: [facility] Work Phone: Start: 07-03-2023 Encounter for other preprocedural examination GEOFFREY DANIEL [facility] Start: 07-01-2023 ambulatory JERRY ARNOLD Facil ity:[facility] Start: 07-01-2023 End: 07-01-2023 Subsequent hospital visit by physician Ct [facility] Radiology Comment on above: Chronic pain of righ t knee [M25.561, G89.29] Start: 06-26-2023 Telephone encounter Sabina rutledge MD Work Phone: [address] Comment on above: Pre-Op Teaching Start: 06-22-2023 End: 06-22-2023 ambulatory VERN RICO Facility:[facility] Start: 06-07-2023 End: 06-07-2023 ambulatory DEE MILLER Facility:[facility] Start: 05-27-2023 End: 05-27-2023 ambulatory JERRY ARNOLD Facility:[facility] Start: 05-16-2023 End: 05-16-2023 ambulatory JERRY ARNOLD Facility:[facility] Start: 05-08-2023 End: 05-08-2023 ambulatory JERRY Edwards [facility] Facility:[facility] Start: 04-22-2023 ambulatory Jerry quiñones MD Work Phone: [facility] [place] Comment on above: Oxybutynim Start: 04-14-2023 Refill Po Delgadillo APRN.CNP Work Phone: [facility] [place] Comment on above: Refill Request Start: 04-12-2023 Refill Jerry quiñones MD Work Phone: [facility] [place] Comment on above: Refill Request Start: 04-10-2023 End: 04-10-2023 ambulatory Treatment Rm 13 Walker [facility] Work Phone: Hematology/Oncology Comment on above: Seropositive rheumat oid arthritis (HCC) (Primary Dx); Need for influenza vaccination Start: 03-18-2023 ambulatory Vern Rico MD Work Phone: Rheumatology Comment on above: Vaccines Start: 03-13-2023 End: 03-13-2023 ambulatory Treatment Rm 13 Walker [facility] Work Phone: Hematology/Oncology Comment on above: Seropositive rheumat oid arthritis (HCC) (Primary Dx) Start: 03-11-2023 Refill Vern Rico MD Work Phone: Rheumatology Comment on above: Refill Request Start: 03-04-2023 End: 03-04-2023 ambulatory VERN RICO Facility:[facility] Start: 02-23-2023 ambulatory Vern Rico MD Work Phone: Rheumatology Comment on above: Blood work Start: 02-14-2023 End: 02-14-2023 ambulatory Treatment Rm 13 Walker [facility] Work Phone: Hematology/Oncology Comment on above: Seropositive rheumat oid arthritis (HCC) (Primary Dx) Start: 02-07-2023 ambulatory Po Delgadillo APRN.EMISSION SPECIALIST Work Phone: [facility] Comment on above: Ativan Start: 01-16-2023 End: 01-16-2023 ambulatory Treatment Rm 13 Walker [facility] Work Phone: Hematology/Oncology Comment on above: Seropositive rheumat oid arthritis (HCC) (Primary Dx) Start: 01-10-2023 Telephone encounter Jerry weiss MD Work Phone: [facility] Comment on above: Medication Question ([facility] [place], holding Celebrex/ASA prior to procedure.); Forms ([place] [facility]) Start: 12-20-2022 End: 12-20-2022 ambulatory Treatment Rm 13 Walker [facility] Work Phone: Hematology/Oncology Comment on above: Seropositive rheumat oid arthritis (HCC) (Primary Dx) Start: 12-14-2022 Orders Only Vern Rico MD Work Phone: Rheumatology Start: 12-06-2022 End: 12-06-2022 ambulatory Contreras Golias PT Work Phone: [facility] Comment on above: Lumbar radiculopathy (Primary Dx); Trochanteric bursitis of both hips Start: 11-29-2022 End: 11-29-2022 Patient encounter procedure Sasha Pollock APRN.EMISSION SPECIALIST Work Phone: [facility] Comment on above: Herpes zoster withou t complication (Primary Dx) Start: 11-19-2022 End: 11-19-2022 ambulatory Sandy Alfredo CANDY CUTTER MACHINE Work Phone: [facility] Comment on above: Lumbar radiculopathy (Primary Dx); Trochanteric bursitis of both hips Start: 11-15-2022 End: 11-15-2022 ambulatory Contreras Golias PT Work Phone: [facility] Comment on above: Lumbar radiculopathy (Primary Dx); Trochanteric bursitis of both hips Start: 11-11-2022 Refill Kenneth Cannon Work Phone: [facility] Comment on above: Refill Request Start: 11-07-2022 End: 11-07-2022 ambulatory Contreras Golias PT Work Phone: [facility] Comment on above: Degeneration of lumb ar or lumbosacral intervertebral disc; Lumbar facet arthropathy; Trochanteric bursitis of both hips Start: 10-29-2022 ambulatory Jules Colvin ms, PA-C Work Phone: [facility] Comment on above: Celebrex Start: 10-24-2022 End: 10-24-2022 ambulatory Treatment Rm 2 Walker [facility] Work Phone: Hematology/Oncology Comment on above: Seropositive rheumat oid arthritis (HCC) (Primary Dx) Start: 10-17-2022 End: 10-17-2022 Patient encounter procedure Jules Wallace PA-C Work Phone: [facility] Comment on above: Degeneration of lumb ar or lumbosacral intervertebral disc (Primary Dx); Lumbar facet arthropathy; Trochanteric bursitis of both hips Start: 10-01-2022 End: 10-01-2022 Subsequent hospital visit by physician Screen Mammo [facility] Mammogram Comment on above: Encounter for screen ing mammogram for malignant neoplasm of breast [Z12.31] Start: 09-20-2022 End: 09-20-2022 Subsequent hospital visit by physician [facility] [employer] Work Phone: Radiology Comment on above: Pain in right hip [M 25.551] Start: 09-03-2022 ambulatory Karina Aranda SENIOR PUBLICATIONS SPECIALIST.EMISSION SPECIALIST Work Phone: Family [facility] Comment on above: Rx Start: 08-29-2022 End: 08-29-2022 ambulatory Treatment Rm 13 Walker [facility] Work Phone: Hematology/Oncology Comment on above: Seropositive rheumat oid arthritis (HCC) (Primary Dx) Start: 08-24-2022 ambulatory Anjana Clark SENIOR PUBLICATIONS SPECIALIST.EMISSION SPECIALIST Work Phone: Rheumatology Comment on above: Taking Pred taper Start: 08-16-2022 End: 08-16-2022 Patient encounter procedure Mando Giron APRN.EMISSION SPECIALIST Work Phone: Orthopaedics Comment on above: Primary osteoarthrit is of right knee (Primary Dx) Start: 08-16-2022 End: 08-16-2022 [facility] Work Phone: Radiology Comment on above: Chronic pain of righ t knee [M25.561, G89.29] Start: 08-15-2022 Orders Only Mando Giron SENIOR PUBLICATIONS SPECIALIST.EMISSION SPECIALIST Work Phone: Orthopaedics Comment on above: Chronic pain of righ t knee (Primary Dx) Start: 08-14-2022 Telephone encounter Sabina rutledge MD Work Phone: Orthopaedics Comment on above: Appointment Start: 08-10-2022 Telephone encounter Vern Sutheralnd MD Work Phone: Rheumatology Comment on above: Appointment Start: 08-01-2022 End: 08-01-2022 ambulatory Treatment Rm 7 Walker [facility] Work Phone: Hematology/Oncology Comment on above: Malignant neoplasm o f skin (Primary Dx); Seropositive rheumatoid arthritis (HCC) Start: 07-31-2022 Refill Karina Aranda APRN.EMISSION SPECIALIST Work Phone: [facility] Comment on above: Refill Request Start: 07-26-2022 Telephone encounter Karina calvin APRN.EMISSION SPECIALIST Work Phone: [facility] [place] Comment on above: Results (Labs ) Start: 07-12-2022 End: 07-12-2022 Patient encounter procedure Karina Aranda APRN.EMISSION SPECIALIST Work Phone: [facility] Comment on above: Acquired hypothyroid ism (Primary Dx); Mixed hyperlipidemia; Venous insufficiency; Primary insomnia; Anxiousness; History of rheumatoid arthritis; Urgency of urination; Encounter for screening mammogram for malignant neoplasm of breast; Malignant neoplasm of skin; TIA (transient ischemic attack) Start: 07-04-2022 End: 07-04-2022 ambulatory Treatment Rm 7 Walker [facility] Work Phone: Hematology/Oncology Comment on above: Seropositive rheumat oid arthritis (HCC) (Primary Dx) Start: 06-06-2022 End: 06-06-2022 ambulatory Treatment Rm 7 Walker [facility] Work Phone: Hematology/Oncology Comment on above: Seropositive rheumat oid arthritis (HCC) (Primary Dx) Start: 05-09-2022 End: 05-09-2022 ambulatory Treatment Rm 8 [facility] Work Phone: Hematology/Oncology Comment on above: Malignant neoplasm o f skin (Primary Dx); Seropositive rheumatoid arthritis (HCC) Start: 05-02-2022 End: 05-02-2022 Patient encounter procedure Anjana Clark APRN.EMISSION SPECIALIST Work Phone: Rheumatology Comment on above: Seropositive rheumat oid arthritis (HCC) (Primary Dx); Generalized osteoarthrosis; Osteopenia of multiple sites; Encounter for long-term (current) use of NSAIDs; Long-term use of immunosuppressant medication Start: 04-20-2022 ambulatory Jerry quiñones MD Work Phone: [facility] Comment on above: COVID vaccine Start: 04-19-2022 End: 04-19-2022 Patient encounter procedure Sabina Jefferson MD Work Phone: Orthopaedics Comment on above: Status post left hip replacement (Primary Dx); S/P hip replacement, right Start: 04-19-2022 End: 04-19-2022 Subsequent hospital visit by physician [facility] Tammie Carrillo Work Phone: Radiology Comment on above: Bilateral hip pain [ M25.551, M25.552] Start: 02-27-2022 End: 02-27-2022 ambulatory Treatment Rm 6 Walker [facility] Work Phone: Hematology/Oncology Comment on above: Malignant neoplasm o f skin (Primary Dx); Seropositive rheumatoid arthritis (HCC) Start: 02-21-2022 Telephone encounter Suly Cabral MD Work Phone: Hematology/Oncology Comment on above: Appointment Start: 02-18-2022 Refill Vern Rico MD Work Phone: Rheumatology Comment on above: Refill Request Start: 01-23-2022 End: 01-23-2022 ambulatory Treatment Rm 5 Walker [facility] Work Phone: Hematology/Oncology Comment on above: Seropositive rheumat oid arthritis (HCC) (Primary Dx) Start: 01-23-2022 Telephone encounter Dee kenney MD Work Phone: Hematology/Oncology Comment on above: Orders Start: 01-11-2022 End: 01-11-2022 Patient encounter procedure Jerry Arnold MD Work Phone: [facility] Comment on above: Hospital discharge f ollow-up (Primary Dx); Atypical migraine; Anxiousness Start: 01-10-2022 Telephone encounter Emily Radford APRN.EMISSION SPECIALIST Work Phone: [facility] Comment on above: Request Outside [facility] Records (Brain images [place] Dec 2021) Start: 01-09-2022 End: 01-09-2022 Patient encounter procedure Emily Radford APRN.EMISSION SPECIALIST Work Phone: [facility] Comment on above: Language impairment (Primary Dx); History of transient ischemic attack (TIA) Start: 12-25-2021 End: 12-25-2021 Subsequent hospital visit by physician [facility] Radiology Comment on above: Osteopenia of multip le sites [M85.89] Start: 12-20-2021 Orders Only Vern Rico MD Work Phone: Rheumatology Comment on above: Long-term use of imm unosuppressant medication (Primary Dx) Start: 11-28-2021 End: 11-28-2021 ambulatory Karina Aranda APRN.EMISSION SPECIALIST Work Phone: [facility] [place] Comment on above: Medication Seropositive rheumat oid arthritis (HCC) (Primary Dx) Start: 11-15-2021 ambulatory Jerry quiñones MD Work Phone: [facility] [place] Comment on above: Medication renewal Start: 11-02-2021 End: 11-02-2021 Patient encounter procedure Anjana Clark APRN.EMISSION SPECIALIST Work Phone: Rheumatology Comment on above: Seropositive rheumat oid arthritis (HCC) (Primary Dx); Encounter for long-term (current) use of NSAIDs; Generalized osteoarthrosis; Osteopenia of multiple sites Start: 10-31-2021 End: 10-31-2021 ambulatory Treatment Rm 5 Walker [facility] Work Phone: Hematology/Oncology Comment on above: Seropositive rheumat oid arthritis (HCC) (Primary Dx) Start: 10-31-2021 End: 10-31-2021 Patient encounter procedure Char Alfaro DO Work Phone: Vascular Surgery Comment on above: Symptomatic varicose veins of both lower extremities (Primary Dx) Start: 10-05-2021 ambulatory Vern Rico MD Work Phone: Rheumatology Comment on above: Left hip pain Start: 10-05-2021 Patient encounter procedure Vern Rico MD Work Phone: Rheumatology Comment on above: Appointment Start: 10-03-2021 Refill Vern Rico MD Work Phone: Rheumatology Comment on above: Refill Request Start: 09-29-2021 ambulatory Karina Aranda APRN.EMISSION SPECIALIST Work Phone: [facility] [place] Comment on above: Ativan Start: 09-29-2021 Documentation procedure Mammog rosemarie Coordinator [facility] Start: 09-29-2021 Letter encounter Mammography Coordinator [facility] Department Start: 09-29-2021 Telephone encounter Char Edwards Dominic DO Work Phone: Vascular Surgery Comment on above: Swelling (post EVLT) Start: 09-29-2021 End: 09-29-2021 Subsequent hospital visit by physician Screen Mammo [facility] Mammogram Comment on above: Encounter for screen ing mammogram for malignant neoplasm of breast [Z12.31] Start: 09-22-2021 End: 09-22-2021 Patient encounter procedure Char Edwards Dominic DO Work Phone: Vascular Surgery Comment on above: Symptomatic varicose veins of both lower extremities (Primary Dx) Start: 09-18-2021 ambulatory Char lee DO Work Phone: Vascular Surgery Comment on above: procedure Start: 09-15-2021 ambulatory Karina Aranda APRN.EMISSION SPECIALIST Work Phone: [facility] Comment on above: Mammogram Start: 09-14-2021 End: 09-14-2021 ambulatory Treatment Rm 10 Walker [facility] Work Phone: Hematology/Oncology Comment on above: Seropositive rheumat oid arthritis (HCC) (Primary Dx); Osteopenia of multiple sites Start: 08-15-2021 Telephone encounter Suly Cabral MD Work Phone: Hematology/Oncology Comment on above: appt. change Start: 08-15-2021 End: 08-15-2021 ambulatory Treatment Rm 8 [facility] Work Phone: Hematology/Oncology Comment on above: Seropositive rheumat oid arthritis (HCC) (Primary Dx) Start: 08-13-2021 ambulatory Char lee DO Work Phone: Vascular Surgery Comment on above: Scheduling Start: 08-07-2021 Refill Vern Rico MD Work Phone: Rheumatology Comment on above: Refill Request Start: 08-07-2021 End: 08-07-2021 Patient encounter procedure Karina Aranda APRN.EMISSION SPECIALIST Work Phone: [facility] [place] Comment on above: Mixed hyperlipidemia (Primary Dx); Anxiousness; Lower leg edema; History of rheumatoid arthritis Procedures Date Procedure Procedure Detail Performing Clinician Start: 02-14-2024 PFIZER-BIONTECH COVI D-19 VACCINE AGE 12+ YR (COMIRNATY) Zane Potter MD Work Phone: Start: 10-17-2023 PFIZER-BIONTECH COVI D-19 VACCINE (2022-) AGE 12+ YR Zane Potter MD Work Phone: Start: 10-17-2023 Adult depression scr eening assessment Nia Lawrence [facility] Start: 10-02-2023 Screening mammograph y bi 2-view breast inc cad Po Delgadillo SENIOR PUBLICATIONS SPECIALIST.EMISSION SPECIALIST Work Phone: Start: 08-06-2023 Radiologic examinati on knee 3 views Mando Giron SENIOR PUBLICATIONS SPECIALIST.EMISSION SPECIALIST Work Phone: Start: 07-03-2023 Ecg routine ecg w/le ast 12 lds i&r only [facility] Provider Start: 10-01-2022 Screening mammograph y bi 2-view breast inc cad Karina Aranda APRN.EMISSION SPECIALIST Work Phone: Start: 09-20-2022 Radex hip unilateral with pelvis 2-3 views Kenneth Altamirano PA-C Work Phone: Start: 08-16-2022 Arthrocentesis aspir &/inj major jt/bursa w/o us Mando Giron SENIOR PUBLICATIONS SPECIALIST.EMISSION SPECIALIST Work Phone: Start: 08-16-2022 Radiologic exam knee complete 4/more views Mando Giron APRN.EMISSION SPECIALIST Work Phone: Start: 04-19-2022 Radiologic examinati on pelvis 1/2 views Mando Giron APRN.EMISSION SPECIALIST Work Phone: Start: 09-29-2021 Screening mammograph y bi 2-view breast inc cad Karina Aranda APRN.EMISSION SPECIALIST Work Phone: Plan of Treatment Date Care Activity Detail Author Start: 11-27-2026 Diabetes Screening Diabetes Screening [facility] Start: 07-23-2026 Diabetes Screening Diabetes Screening [facility] Start: 07-22-2026 Diabetes Screening Diabetes Screening [facility] Start: 07-25-2025 DIABETES SCREEN DIABETES SCREEN [facility] Start: 07-25-2025 Diabetes Screening Diabetes Screening [facility] Start: 04-15-2025 End: 04-15-2025 Patient encounter procedure 04/15/2025 10:30 AM EST Office Visit Rheumatology [address] [place] [address] Anjana Clark, SENIOR PUBLICATIONS SPECIALIST.EMISSION SPECIALIST [address] [place] [address] Return for 6 & 18 months with Anjana and 12 months with me. Rheumatology Comment on above: Return for 6 & 18 months with Anjana an d 12 months with me. Start: 10-20-2024 End: 10-20-2024 Patient encounter procedure 10/20/2024 11:20 AM EDT Office Visit Rheumatology [address] [place] [address] [place] [address] [place] [address] Return for 6 & 18 months with Anjana and 12 months with me. Rheumatology Comment on above: Return for 6 & 18 months with Anjana an d 12 months with me. Start: 10-16-2024 Anxiety Screening Anxiety Screening [facility] Start: 10-16-2024 Depression Screening Depression Screening [facility] Start: 06-30-2024 End: 06-30-2024 Patient encounter procedure 06/30/2024 10:30 AM EST Office Visit Orthopaedics [address] [address] Mando Giron, PATRICIA.EMISSION SPECIALIST [address] [place] [address] follow up Orthopaedics Comment on above: follow up Start: 05-15-2024 End: 05-15-2024 ambulatory 05/15/2024 2:30 PM EST Visit (SP) Office Hematology/Oncology [address] [place] [address] 2nd Hematology/Oncology Comment on above: 2nd Start: 04-17-2024 End: 04-17-2024 ambulatory 04/17/2024 2:30 PM EST Visit (SP) Office Hematology/Oncology [address] [place] [address] 2nd Hematology/Oncology Comment on above: 2nd Start: 04-16-2024 End: 04-16-2024 Patient encounter procedure 04/16/2024 3:30 PM EST Office Visit Rheumatology [address] [place] [address] Anjana Clark, PATRICIA.EMISSION SPECIALIST [address] [place] [address] Return for 6 & 18 months with Anjana and 12 months with me. Rheumatology Comment on above: Return for 6 & 18 months with Anjana an d 12 months with me. Start: 04-14-2024 End: 04-14-2024 Patient encounter procedure 04/14/2024 9:20 AM EST Office Visit Internal Medicine [place] [address] [place] [address] Zane Potter MD [address] [place] [address] 6 month follow-up [facility] [place] Comment on above: 6 month follow-up Start: 04-10-2024 Covid-19 Vaccine ( season) Covid-19 Vaccine ( season) [facility] Start: 04-02-2024 End: 04-02-2024 Patient encounter procedure 04/02/2024 11:00 AM EST Office Visit Orthopaedics [address] [address] Sabina Jefferson MD [address] [address] 6 month post op concerns Orthopaedics Comment on above: 6 month post op concerns Start: 03-19-2024 End: 03-19-2024 ambulatory 03/19/2024 2:30 PM EST Visit (SP) Office Hematology/Oncology [address] [place] [address] 2nd Hematology/Oncology Comment on above: 2nd Start: 03-16-2024 End: 03-16-2024 ambulatory 03/16/2024 12:15 PM EST OT/PT/Speech Visit [facility] [address] [place] [address] Geoffrey Daniel, PT [address] [facility] [place] [address] Gait instability [R26.81] [facility] Comment on above: Gait instability [R26.81] Start: 02-20-2024 End: 02-20-2024 ambulatory 02/20/2024 2:30 PM EDT Visit (SP) Office Hematology/Oncology [address] [place] [address] 2nd Hematology/Oncology Comment on above: 2nd Start: 02-20-2024 End: 02-20-2024 Patient encounter procedure Radiology Comment on above: R knee 6 month post op conc erns Start: 02-15-2024 DIABETES SCREEN DIABETES SCREEN [facility] Start: 02-11-2024 End: 02-11-2024 ambulatory 02/11/2024 10:45 AM EDT OT/PT/Speech Visit [facility] [address] [place] [address] Geoffrey Daniel, PT [address] [facility] [place] [address] rt shoulder pain [facility] Comment on above: rt shoulder pain Start: 01-23-2024 End: 01-23-2024 ambulatory 01/23/2024 2:30 PM EDT Visit (SP) Office Hematology/Oncology [address] [place] [id number] 2nd Hematology/Oncology Comment on above: 2nd Start: 01-20-2024 End: 01-20-2024 Patient encounter procedure 01/20/2024 1:20 PM EDT Office Visit [facility] [place] [address] [facility] [place] [address] Erica Renee, SENIOR PUBLICATIONS SPECIALIST.EMISSION SPECIALIST [address] [place] [address] Shoulder Pain [facility] [place] Comment on above: Shoulder Pain Start: 01-12-2024 Covid-19 Vaccine ( season) Covid-19 Vaccine ( season) [facility] Start: 01-12-2024 Covid-19 Vaccine () Covid-19 Vaccine () [facility] Start: 01-12-2024 Influenza vaccination Influenza Vaccine (#1) [facility] Start: 12-30-2023 End: 12-30-2023 Patient encounter procedure 12/30/2023 1:40 PM EDT Appointment Radiology [address] [place] [id number] Osteopenia of multiple sites [M85.89] Radiology Comment on above: Osteopenia of multiple sites [M85.89] Start: 12-26-2023 End: 12-26-2023 [facility] Hematology/Oncology Comment on above: PAN TREJO/DR DEE MILLER ORDERING/ CR* 2nd Start: 12-26-2023 End: 03-26-2024 Chronic hepatitis differentiation between hepatitis B and C virus panel - Serum or Plasma [facility] Work Phone: Comment on above: Expected: 12/26/2023, Expires: 4 Start: 12-26-2023 End: 11-13-2024 DXA Skeletal system.axial Views for bone density DXA-AXIAL SKELETON Radiology Routine Osteopenia of multiple sites Encounter for long-term (current) use of medications Expected: 12/26/2023, Expires: 11/13/2024 [facility] Comment on above: Expected: 12/26/2023, Expires: 5 Start: 12-12-2023 Covid-19 Vaccine ( season) Covid-19 Vaccine () [facility] Start: 12-01-2023 Urine microalbumin profile [facility] Start: 11-28-2023 End: 11-28-2023 [facility] Hematology/Oncology Comment on above: QMO ORETHAISIA/DR DEE MILLER ORDERING/MD LORA* CMP Prior/ QMO ORENC IA/ YEARLY RECLASTDR DEE MILLER ORDERING/MDCR* CMP(S)* 2nd Start: 10-31-2023 End: 10-31-2023 [facility] Hematology/Oncology Comment on above: QMO DEREKIA/DR DEE MILLER ORDERING/MD LORA* QMO ORETHAISIA/DR KINGSLEY MILLER ORDERING/QYR RECLAST/DR RICO ORDERING/MDCR* Start: 10-17-2023 End: 10-17-2023 Patient encounter procedure 10/17/2023 9:00 AM EDT Office Visit Internal Medicine [place] [address] [place] [address] Zane Potter MD [address] [place] [address] medicare wellness/establish with Dr. García per Dr. Gar [facility] [place] Comment on above: medicare wellness/establish with Dr. Brooks per Dr. Gar Start: 10-15-2023 End: 01-14-2024 25-hydroxyvitamin D3 [Mass/volume] in Serum or Plasma VITAMIN D 25 HYDROXY Lab Routine Osteopenia of multiple sites Encounter for long-term (current) use of medications Expected: 10/15/2023, Expires: 01/14/2024 [facility] Comment on above: Expected: 10/15/2023, Expires: Start: 10-15-2023 End: 01-14-2024 Calcium [Mass/volume] in Serum or Plasma CALCIUM, TOTAL Lab Routine Osteopenia of multiple sites Encounter for long-term (current) use of medications Expected: 10/15/2023, Expires: 01/14/2024 [facility] Work Phone: Comment on above: Expected: 10/15/2023, Expires: Start: 10-15-2023 End: 10-15-2023 Patient encounter procedure 10/15/2023 10:40 AM EDT Office Visit Rheumatology [address] [place] [address] [place] [address] [place] [id number] RA Rheumatology Comment on above: RA Start: 10-03-2023 End: 10-03-2023 [facility] Hematology/Oncology Comment on above: PAN TREJO/DR DEE MILLER ORDERING/ CR* Start: 10-02-2023 End: 08-21-2024 MG Breast Screening PAMELA SCREENING Radiology Routine Encounter for screening mammogram for malignant neoplasm of breast Expected: 10/02/2023 (Approximate), Expires: 08/21/2024 [facility] Work Phone: Comment on above: Expected: 10/02/2023 (Approximate), Expi res: 08/21/2024 Start: 10-02-2023 End: 10-02-2023 Patient encounter procedure 10/02/2023 9:10 AM EDT Appointment Mammogram [address] [place] [address] Mammogram Start: 09-17-2023 End: 09-17-2023 Patient encounter procedure 09/17/2023 2:40 PM EDT Office Visit Orthopaedics [address] [address] Sabina Jefferson MD [address] [address] s/p R TKA 07/21 Orthopaedics Comment on above: s/p R TKA 07/21 Start: 09-17-2023 End: 09-17-2023 ambulatory 09/17/2023 10:30 AM EDT OT/PT/Speech Visit [facility] [address] [place] [address] Geoffrey Daniel, PT [address] [place] [address] M25.561,G89.29 (ICD-10-CM) - Chronic pain of right knee [facility] Comment on above: M25.561,G89.29 (ICD-10-CM) - Chronic demetri n of right knee Start: 09-13-2023 End: 09-13-2023 ambulatory 09/13/2023 9:15 AM EDT OT/PT/Speech Visit [facility] [address] [place] [address] Geoffrey Daniel, PT [address] [place] [address] M25.561,G89.29 (ICD-10-CM) - Chronic pain of right knee [facility] Comment on above: M25.561,G89.29 (ICD-10-CM) - Chronic demetri n of right knee Start: 08-08-2023 Shingrix Vaccine (2 of 2) Shingrix Vaccine (2 of 2) [facility] Start: 05-13-2023 Advance Directive Discussion Advance Directive Discussion [facility] Start: 05-13-2023 Behavioral Health Screening Behavioral Health Screening [facility] Start: 05-13-2023 Depression Assessment Depression Assessment [facility] Start: 04-11-2023 Covid-19 Vaccine (6 - Moderna risk series) Covid-19 Vaccine (6 - Moderna risk series) [facility] Start: 04-11-2023 Covid-19 Vaccine (2022-24 season) Covid-19 Vaccine (2022- season) [facility] Start: 02-25-2023 End: 04-27-2023 CBC panel - Blood by Automated count CBC Lab Routine Long-term use of immunosuppressant medication Expected: 02/25/2023, Expires: 04/27/2023 [facility] Work Phone: Comment on above: Expected: 02/25/2023, Expires: 3 Start: 02-25-2023 End: 04-27-2023 CREATININE BLD CREATININE BLD Lab Routine Long-term use of immunosuppressant medication Expected: 02/25/2023, Expires: 04/27/2023 [facility] Work Phone: Comment on above: Expected: 02/25/2023, Expires: Start: 02-25-2023 End: 04-27-2023 Hepatic function 2000 panel - Serum or Plasma HEPATIC FUNCTION PNL Lab Routine Long-term use of immunosuppressant medication Expected: 02/25/2023, Expires: 04/27/2023 [facility] Work Phone: Comment on above: Expected: 02/25/2023, Expires: 3 Start: 01-11-2023 Influenza vaccination [facility] Start: 07-12-2022 End: 09-11-2022 Comprehensive metabolic 2000 panel - Serum or Plasma COMP METABOLIC PANEL Lab Routine Mixed hyperlipidemia Expected: 07/12/2022, Expires: 09/11/2022 [facility] Work Phone: Comment on above: Expected: 07/12/2022, Expires: 3 Start: 07-12-2022 End: 09-11-2022 LIPID PANEL, NONFASTING LIPID PANEL, NONFASTING Lab Routine Mixed hyperlipidemia Expected: 07/12/2022, Expires: 09/11/2022 [facility] Work Phone: Comment on above: Expected: 07/12/2022, Expires: 3 Start: 07-12-2022 End: 09-11-2022 Thyrotropin [Units/volume] in Serum or Plasma TSH BLD Lab Routine Acquired hypothyroidism Expected: 07/12/2022, Expires: 09/11/2022 [facility] Work Phone: Comment on above: Expected: 07/12/2022, Expires: 3 Start: 07-09-2022 COVID-19 VACCINE (6 - Moderna risk series) COVID-19 VACCINE (6 - Moderna risk series) [facility] Start: 05-13-2022 ADVANCE DIRECTIVE DISCUSSION ADVANCE DIRECTIVE DISCUSSION [facility] Start: 05-13-2022 DEPRESSION ASSESSMENT DEPRESSION ASSESSMENT [facility] Start: 01-11-2022 Influenza vaccination INFLUENZA (#1) [facility] Start: 11-11-2021 COVID-19 VACCINE (5 - Booster for Moderna series) COVID-19 VACCINE (5 - Booster for Moderna series) [facility] Start: 09-06-2021 COVID-19 VACCINE (5 - Booster for Moderna series) COVID-19 VACCINE (5 - Booster for Moderna series) [facility] Start: 05-13-2021 ADVANCE DIRECTIVE DISCUSSION ADVANCE DIRECTIVE DISCUSSION [facility] Start: 05-13-2021 DEPRESSION ASSESSMENT DEPRESSION ASSESSMENT [facility] Start: 04-07-2021 COVID-19 VACCINE (4 - Booster for Moderna series) COVID-19 VACCINE (4 - Booster for Moderna series) [facility] Start: 06-06-2011 Screening for malignant neoplasm of cervix Cervical Cancer Screening [facility] Start: 2000 RSV Vaccine (1 - 1-dose 60+ series) RSV Vaccine (1 - 1-dose 60+ series) [facility] Start: 02-25-1990 SHINGRIX VACCINE (1 of 2) SHINGRIX VACCINE (1 of 2) [facility] Start: 02-25-1959 SHINGRIX VACCINE (1 of 2) SHINGRIX VACCINE (1 of 2) [facility] End: 12-20-2022 CBC panel - Blood by Automated count CBC Lab Routine Long-term use of immunosuppressant medication 7 Occurrences starting 12/20/2021 until 12/20/2022 [facility] Work Phone: Comment on above: 7 Occurrences starting 12/20/2021 until 12/20/2022 CBC panel - Blood by Automated count CBC Lab Routine Long-term use of immunosuppressant medication 12/20/2021 2:54 PM EDT [facility] Work Phone: COLOGUARD COLOGUARD Lab Ro utine Screening for colon cancer Ordered: 10/17/2023 [facility] Work Phone: Comment on above: Ordered: 10/17/2023 End: 12-20-2022 CREATININE BLD CREATININE BLD Lab Routine Long-term use of immunosuppressant medication 7 Occurrences starting 12/20/2021 until 12/20/2022 [facility] Work Phone: Comment on above: 7 Occurrences starting 12/20/2021 until 12/20/2022 CREATININE BLD CREATININE BLD L ab Routine Long-term use of immunosuppressant medication 12/20/2021 2:54 PM EDT [facility] [facility] Work [facility] CT Knee - right WO contrast CT KNEE WO IVCON RIGHT Radiology Routine Chronic pain of right knee 07/01/2023 7:50 AM EST [facility] Work Phone: End: 12-25-2021 Dxa bone density study 1/> sites axial skel [facility] Work Phone: Comment on above: 1 Occurrences starting 12/25/2021 until 12/25/2021 DXA Skeletal system.axial Views for bone density DXA-AXIAL SKELETON Radiology Routine Osteopenia of multiple sites Encounter for long-term (current) use of medications 12/30/2023 2:22 PM EDT [facility] Work Phone: ECG COMPLETE ECG COMPLETE ECG 07/03/2023 10:32 AM [facility] End: 12-20-2022 Hepatic function 2000 panel - Serum or Plasma HEPATIC FUNCTION PNL Lab Routine Long-term use of immunosuppressant medication 7 Occurrences starting 12/20/2021 until 12/20/2022 [facility] Work Phone: Comment on above: 7 Occurrences starting 12/20/2021 until 12/20/2022 Hepatic function 200 0 panel - Serum or Plasma HEPATIC FUNCTION PNL Lab Routine Long-term use of immunosuppressant medication 12/20/2021 2:54 PM EDT [facility] Work Phone: Hepatitis B virus co re Ab [Presence] in Serum HEPATITIS B CORE ANTIBODY TOTAL Lab Routine Seropositive rheumatoid arthritis (HCC) 12/26/2023 2:56 PM EDT [facility] Hepatitis B virus surface Ab [Presence] in Serum HEPATITIS B SURFACE ANTIBODY Lab Routine Seropositive rheumatoid arthritis (HCC) 12/26/2023 2:56 PM EDT [facility] Hepatitis B virus surface Ag [Presence] in Serum HEPATITIS B SURFACE ANTIGEN Lab Routine Seropositive rheumatoid arthritis (HCC) 12/26/2023 2:56 PM EDT [facility] Hepatitis C virus Ab [Presence] in Serum HEPATITIS C ANTIBODY IA WITH CONFIRMATION Lab Routine Seropositive rheumatoid arthritis (HCC) 12/26/2023 2:56 PM EDT [facility] End: 08-11-2023 [facility] SCREENING [facility] SCREENING Radiology Routine Encounter for screening mammogram for malignant neoplasm of breast 1 Occurrences starting 07/12/2022 until 08/11/2023 [facility] Work Phone: Comment on above: 1 Occurrences starting 07/12/2022 until 08/11/2023 PT PLAN OF CARE CERTIFICATION PT PLAN OF CARE CERTIFICATION Procedures Routine Degeneration of lumbar or lumbosacral intervertebral disc Lumbar facet arthropathy Trochanteric bursitis of both hips Ordered: 11/07/2022 [facility] Work Phone: Comment on above: Ordered: 11/07/2022 PT PLAN OF CARE CERTIFICATION PT PLAN OF CARE CERTIFICATION Procedures Routine Lumbar radiculopathy Trochanteric bursitis of both hips Ordered: 12/06/2022 [facility] Work Phone: Comment on above: Ordered: 12/06/2022 End: 11-16-2023 Radex spine lumbosacral minimum 4 views XR LUMBAR MOTION 4V AP/LAT/ FLEX/EXT Radiology Routine Degeneration of lumbar or lumbosacral intervertebral disc Lumbar facet arthropathy 1 Occurrences starting 10/17/2022 until 11/16/2023 [facility] Work Phone: Comment on above: 1 Occurrences starting 10/17/2022 until 11/16/2023 End: 10-15-2022 Screening mammography bi 2-view breast inc cad PAMELA SCREENING Radiology Routine Encounter for screening mammogram for malignant neoplasm of breast 1 Occurrences starting 09/15/2021 until 10/15/2022 [facility] Work Phone: Comment on above: 1 Occurrences starting 09/15/2021 until 10/15/2022 Shoe lift elev heel/ sole nestor SHOE LIFT Procedures Routine Leg length discrepancy Ordered: 02/20/2024 [facility] Work Phone: Comment on above: Ordered: 02/20/2024 XR Knee AP and Later al and [employer]chants XR KNEE POST OP 3V AP/LAT/MERCHANT RIGHT Radiology Routine Chronic pain of right knee 02/20/2024 9:58 AM EDT [facility] Work Phone: End: 09-15-2023 XR KNEE GENERAL 4V AP BOTH/PA BOTH/LAT/MERC RIGHT XR KNEE GENERAL 4V AP BOTH/PA BOTH/LAT/MERC RIGHT Radiology Routine Chronic pain of right knee 1 Occurrences starting 08/16/2022 until 09/15/2023 [facility] Work Phone: Comment on above: 1 Occurrences starting 08/16/2022 until 09/15/2023 XR KNEE GENERAL 4V A P BOTH/PA BOTH/LAT/MERC RIGHT XR KNEE GENERAL 4V AP BOTH/PA BOTH/LAT/MERC RIGHT Radiology Routine Chronic pain of right knee 08/16/2022 8:25 AM EDT [facility] Work Phone: End: 02-18-2025 XR Shoulder - right 3 Views XR SHOULDER GENERAL 3V OR MORE AP/TRUE AP/OTHER RIGHT Radiology Routine Chronic right shoulder pain 1 Occurrences starting 01/20/2024 until 02/18/2025 [facility] Work Phone: Comment on above: 1 Occurrences starting 01/20/2024 until 02/18/2025 XR Shoulder - right 3 Views XR SHOULDER GENERAL 3V OR MORE AP/TRUE AP/OTHER RIGHT Radiology Routine Chronic right shoulder pain 01/20/2024 1:59 PM EDT [facility] Immunizations Immunization Date Immunization Notes Care Provider [facility] 02-14-2024 COVID-19 vaccine, ag e 12+ yr (PFIZER-BIONTECH COMIRNATY) Zane Potter MD Work Phone: [facility] 02-14-2024 influenza, high dose seasonal, preservative-free Zane Potter MD Work Phone: [facility] 10-17-2023 COVID-19 vaccine, ag e 12+ yr, season (PFIZER-BIONTECH) Zane Potter MD Work Phone: [facility] 06-13-2023 respiratory syncytia l virus (RSV) vaccine, adjuvanted (AREXVY) Zane Potter MD Work Phone: [facility] 06-13-2023 zoster vaccine recombinant Zane Potter MD Work Phone: [facility] 04-10-2023 influenza (HD-IIV4) vaccine, age 65+ yr, high dose, quadrivalent, PF (FLUZONE HIGH-DOSE) Treatment Wstr Work Phone: [facility] 04-10-2023 influenza virus vacc ine, unspecified formulation Salvatore Ch DO Work Phone: [facility] 02-14-2023 COVID-19 vaccine, ag e 12+ yr, season (MODERNA) Treatment Wstr Work Phone: [facility] 03-28-2022 influenza, high-dose , quadrivalent vaccine (FLUZONE HIGH DOSE QUADRIVALENT) Sabina Jefferson MD Work Phone: [facility] 03-28-2022 influenza virus vacc ine, unspecified formulation Po Delgadillo SENIOR PUBLICATIONS SPECIALIST.EMISSION SPECIALIST Work Phone: [facility] 02-15-2021 influenza, high-dose , quadrivalent vaccine (FLUZONE HIGH DOSE QUADRIVALENT) Karina Aranda SENIOR PUBLICATIONS SPECIALIST.EMISSION SPECIALIST Work Phone: [facility] 01-05-2021 COVID-19 vaccine, fu ll dose (MODERNA) Karina Aranda SENIOR PUBLICATIONS SPECIALIST.EMISSION SPECIALIST Work Phone: [facility] 03-10-2020 influenza, high dose seasonal, preservative-free Karina Bunnhof SENIOR PUBLICATIONS SPECIALIST.EMISSION SPECIALIST Work Phone: [facility] 2019 influenza, high dose seasonal, preservative-free Karina Bunnhof SENIOR PUBLICATIONS SPECIALIST.EMISSION SPECIALIST Work Phone: [facility] 05-15-2018 influenza, high dose seasonal, preservative-free Karina Tannhof SENIOR PUBLICATIONS SPECIALIST.EMISSION SPECIALIST Work Phone: [facility] 03-08-2017 influenza, high dose seasonal, preservative-free Karina Onihof SENIOR PUBLICATIONS SPECIALIST.EMISSION SPECIALIST Work Phone: [facility] 01-26-2016 influenza, high dose seasonal, preservative-free Karina Tannhof SENIOR PUBLICATIONS SPECIALIST.EMISSION SPECIALIST Work Phone: [facility] 04-11-2015 pneumococcal conjuga te vaccine, 13 valent Karina Aranda SENIOR PUBLICATIONS SPECIALIST.EMISSION SPECIALIST Work Phone: [facility] Work Phone: 03-07-2015 influenza, high dose seasonal, preservative-free Karina Bunnhof SENIOR PUBLICATIONS SPECIALIST.EMISSION SPECIALIST Work Phone: [facility] 02-12-2014 influenza, seasonal, injectable Karina Bunnhof SENIOR PUBLICATIONS SPECIALIST.EMISSION SPECIALIST Work Phone: [facility] 11-30-2013 tetanus toxoid, redu jose diphtheria toxoid, and acellular pertussis vaccine, adsorbed Karina Tannhof SENIOR PUBLICATIONS SPECIALIST.EMISSION SPECIALIST Work Phone: [facility] 04-03-2013 influenza virus vacc ine, unspecified formulation Karina Tannhof SENIOR PUBLICATIONS SPECIALIST.EMISSION SPECIALIST Work Phone: [facility] 02-19-2012 influenza virus vacc ine, unspecified formulation Karina Tannhof SENIOR PUBLICATIONS SPECIALIST.EMISSION SPECIALIST Work Phone: [facility] 02-20-2011 influenza virus vacc ine, unspecified formulation Karina Tannhof SENIOR PUBLICATIONS SPECIALIST.EMISSION SPECIALIST Work Phone: [facility] 04-18-2007 influenza virus vacc ine, unspecified formulation Karina Tannhof SENIOR PUBLICATIONS SPECIALIST.[facility] Work Phone: [facility] Work Phone: 12-11-2005 pneumococcal polysaccharide vaccine, 23 valent Karina Tannhof SENIOR PUBLICATIONS SPECIALIST.EMISSION SPECIALIST Work Phone: [facility] 05-22-2005 influenza virus vacc ine, whole virus Karina Tannhof SENIOR PUBLICATIONS SPECIALIST.EMISSION SPECIALIST Work Phone: [facility] 09-11-2003 tetanus and diphther ia toxoids, not adsorbed, for adult use Karina Tannhof SENIOR PUBLICATIONS SPECIALIST.[facility] Work Phone: [facility] 05-02-2001 influenza virus vacc ine, unspecified formulation Karina Tannhof SENIOR PUBLICATIONS SPECIALIST.[facility] Work Phone: [facility] Work Phone: 08-26-1998 hepatitis A vaccine, unspecified formulation Zane Potter MD Work Phone: [facility] 08-26-1998 TD(adult) unspecifie d formulation Zane Potter MD Work Phone: [facility] 05-13-1997 pneumococcal polysaccharide vaccine, 23 valent Karina Tannhof SENIOR PUBLICATIONS SPECIALIST.[facility] Work Phone: [facility] Payers Date Payer Category Payer Unknown MMO MMO MEDICARE SUPPLEMENT [id number] 2019-Present [phone] [address] [place] [address] Indemnity [id number] 2019 Unknown MMO MMO MEDICARE SUPPLEMENT [id number] 2019-Present [phone] [address] [place] [address] Indemnity [id number] 2019 Medicare [id number] 2005 Medicare MEDICARE MEDICAR E A AND B [id number] 2005-Present [phone] [address] [address] [place] [address] Medicare [id number] 2005 Medicare [id number] 2005 Medicare [id number] 2005 Medicare [id number] 2005 Medicare [id number] Social History Date Type Detail Facility Start: 01-09-2022 Tobacco smoking stat [facility] Never smoked tobacco [facility] Start: 08-07-2021 End: 03-07-2024 Alcohol intake Current drinker of alcohol (finding) [facility] Start: 08-07-2021 End: 09-20-2022 Alcohol intake [facility] Start: 08-31-2020 History SDOH Alcohol Frequency 4 [facility] Start: 08-31-2020 End: 07-10-2022 History SDOH Alcohol Std Drinks 1 [facility] Start: 09-18-2016 History SDOH Alcohol Comment Socially [facility] Start: 08-31-2020 End: 07-10-2022 History SDOH Social Connections Phone 5 [facility] Start: 08-31-2020 End: 07-10-2022 History SDOH Social Connections Get Together 2 [facility] Start: 08-31-2020 End: 07-10-2022 History SDOH Social Connections Bahai 3 [facility] Start: 08-31-2020 End: 07-10-2022 History SDOH Physical Activity DPW 0 [facility] Start: 08-31-2020 Education 17 [facility] Start: 1940 Sex Assigned At Female [facility] Start: 07-28-2021 End: 01-11-2022 Exposure to SARS-CoV-2 (event) Not sure [facility] Start: 01-09-2022 Tobacco use and exposure Smoke less tobacco non-user [facility] Start: 01-27-2022 End: 02-06-2022 Exposure to SARS-CoV-2 (event) Yes [facility] Start: 07-10-2022 End: 09-20-2022 Social connection and isolation panel [facility] Are you now , , , , never or living with a partner? [facility] How often to you hav e a drink containing alcohol? 2-4 times a month [facility] How many standard dr inks containing alcohol do you have on a typical day? 1 or 2 [facility] How often do you hav e 6 or more drinks on 1 occasion? Never [facility] How hard is it for y ou to pay for the very basics like food, housing, medical care, and heating Not hard at all [facility] Do you feel stress - tense, restless, nervous, or anxious, or unable to sleep at night because your mind is troubled all the time - these days [OSQ] To some extent [facility] (I/We) worried wheth er (my/our) food would run out before (I/we) got money to buy more. Never true [facility] In the past 12 month s, was there a time when you were not able to pay the mortgage or rent on time? No [facility] Do you feel stress - tense, restless, nervous, or anxious, or unable to sleep at night because your mind is troubled all the time - these days [OSQ] Not at all [facility] How often to you hav e a drink containing alcohol? 2-3 time sa week [facility] Do you feel stress - tense, restless, nervous, or anxious, or unable to sleep at night because your mind is troubled all the time - these days [OSQ] Only a little [facility] Medical Equipment Procedure Code Equipment Code Equipment Origin al Text Equipment Identifier Dates Landry Bn Smpx P Ra dpq Fd Strl - [id number] Start: 05-16-2015 Comment on above: Description: SIMPLEX P BONE CEMENT Shell 54mm E Hemispherical Tritanium Acetabular Solid Back Primary - [id number] Start: 01-02-2016 Head V40 32mm 0m m Offset Taper Biolox Delta Femoral Hip - [id number] Start: 01-02-2016 Cable Dall-Miles 2mm 2 Vitallium Orthopedic Homogenous Hip - [id number] Start: 02-13-2021 Trident X3 Polyethylene Insert 0deg 36mm Sz [id number] Start: 02-13-2021 Ins Tib 2 9mm Kn X3 Cr Trthln - [id number] Start: 05-16-2015 Comment on above: Description: TRIATHL ON X3 TIBIAL BEARING INSERT - CR Comp Pat 9mm 29m m Asym Trthln - [id number] Start: 05-16-2015 Comment on above: Description: TRIATHL ON X3 ASYMMETRIC PATELLA Comp Fem 2 Lt Kn Cr Landry Trthln - [id number] Start: 05-16-2015 Comment on above: Description: TRIATHL ON CRUCIATE RETAINING FEMORAL Head V40 36mm -2 .5mm Offset Taper Biolox Delta Femoral Hip - [id number] Start: 02-13-2021 Liner 32mm 0d E X3 7.9mm Acetabular Hip - [id number] Start: 01-02-2016 Stem Accolade Ii 4 127d Femoral - [id number] Start: 01-02-2016 Shell Trident Ii 54mm E Tritanium Acetabular 5 Screw Hole Cluster Sterile - [id number] Start: 02-13-2021 Stem Accolade Ii 4 127d Femoral - [id number] Start: 02-13-2021 Baseplt Tib Trth ln 2 Kn Landry - [id number] Start: 05-16-2015 Comment on above: Description: TRIATHL ON PRIMARY TIBIAL BASEPLATE Screw Trident Ii 6.5mm 25mm Bone Low Profile Hexagonal Sterile - [id number] Start: 02-13-2021 Cement Simplex P Bone Radiopaque Full Dose Sterile - [id number] Start: 07-22-2023 Cement Simplex P Bone Radiopaque Full Dose Sterile - [id number] Start: 07-22-2023 Baseplt Tib Alpl y Cs Sz 2 11mm - [id number] Start: 07-22-2023 Component Triath wyatt 2 Femoral Cruciate Retain Cemented Knee Right - [id number] Start: 07-22-2023 Component Triath wyatt 29mm X3 9mm Patellar Asymmetric Knee - [id number] Start: 07-22-2023 Goals Date Patient Goal Desired Activity /State Personal health goal Clinical Notes 04-18-2017 to 03-07-2024 Aruna Beatty PA - 03/07/2024 10:45 AM Mando Ring APRN.EMISSION SPECIALIST - 02/20/2024 10:34 AM Hira Abdul Tech - 02/20/2024 9:40 AM Zane Faye MD - 02/14/2024 9:37 AM EDT Note Date & Type Note Facility 03-07-2024 History of Present illness Narrative Images from the original note were not included. This note was created using Maimair[employer]. Subjective [place] Mosquera is a 84 year old female. HPI 84-year-old female presents for parotid swelling. Patient states that she has had this issue in the past and seen [facility]. She states that she has had parotid stones previously been able to express them on her own at home. She states that she has had parotid swelling for the past few days and has not been able to express the stone, so came in for evaluation. She thought she noticed a little redness on her chest this morning, no redness on her face. No fevers. She has not tried anything [id number] for symptoms. She has been sucking on candy and pushing on the area. She has not had a bad taste in her mouth or noticed discharge into the mouth/purulence. PAST MEDICAL HISTORY Diagnosis Date Acquired hypothyroidism Deep vein thrombosis (DVT) (HCC) Diffuse cystic mastopathy 04/06/2008 Disorder of bone and cartilage, unspecified history of osteopenia Diverticulosis of colon (without mention of hemorrhage) Edema History of diverticulitis 11/13/2007 Hypertension 08/31/2013 Internal hemorrhoids without mention of complication Lumbar disc displacement without myelopathy 11/03/2013 Lumbar radiculopathy 11/03/2013 Lumbar spondylosis 11/03/2013 Lumbar stenosis 11/17/2014 Malignant neoplasm of skin face,clavicle,left leg-Per Mixed hyperlipidemia 01/27/2021 Ocular migraine 08/29/2020 Other malignant neoplasm of skin, site unspecified 2006 SCC face,clavicle,left leg-Per Polymyalgia rheumatica (HCC) 2005 Resolved 2004 Postmenopausal atrophic vaginitis 06/06/2010 Primary osteoarthritis of right knee 07/23/2023 Rheumatoid arthritis (HCC) 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 Blaine Duron Syncope 07/23/2023 Tendinitis of left hip flexor 06/19/2021 TIA (transient ischemic attack) 08/25/2020 Trochanteric bursitis of both hips 10/02/2022 Urge incontinence 2009 Urgency of urination 2009 Venous insufficiency 04/18/2007 Vertigo PAST SURGICAL HISTORY Procedure Laterality Date ANESTH DIAGNOSTIC ARTHROSCOPIC PROC KNEE JOINT right BIOPSY BREAST OPEN INCISIONAL Bx of breast, incisional BREAST BIOPSY CORE 07/13/2006 U/S needle core upper mid right breast CARPAL TUNNEL 09/2010 Dr Tello CHOLECYSTECTOMY lap COLONOSCOPY FLX DX W/COLLJ SPEC WHEN PFRMD 03/12/2002 Colonoscopy COLONOSCOPY FLX DX W/COLLJ SPEC WHEN PFRMD 01/21/2009 Colonoscopy; Stricture dilated at colectomy site IMPLANT MESH OPN HERNIA RPR/DEBRIDEMENT CLOSURE 04/02/2011 abd.hernia repair LAMINOTOMY (HEMILAMINECTOMY), WITH DECOMPRESSION OF NERVE ROOT(S) Right 11/07/2015 L5-S1 LAMINOTOMY (HEMILAMINECTOMY), WITH DECOMPRESSION OF NERVE ROOT(S) Left 11/16/2014 LAPAROSCOPY COLECTOMY PARTIAL W/ANASTOMOSIS 12/11/2007 Lap. Sigmoid colectomy for diverticulitis PAST SURGICAL HISTORY OF 10/01/2006 LARISA PROCEDURE DONE ON FACE FOR SQUAMEOUS CELL CA, PAST SURGICAL HISTORY OF 03/2007 Removal of squamous cell carcinoma from clavicle and left leg by PAST SURGICAL HISTORY OF 04/19/2004 excision from R ear PAST SURGICAL HISTORY OF 06/11/2007 cystoscopy/retrograde PAST SURGICAL HISTORY OF 03/2013 titanium plate removed from left thumb PAST SURGICAL HISTORY OF Right 09/16/2018 MOHS procedure, right cheek - [facility] [place] SIGMOIDOSCOPY FLX DX W/COLLJ SPEC BR/WA IF PFRMD 06/01/2010 TOTAL HIP REPLACEMENT Left 01/02/2016 TOTAL HIP REPLACEMENT Right 02/13/2021 TOTAL KNEE REPLACEMENT Left 05/16/2015 Total Left Knee TOTAL KNEE REPLACEMENT Right 07/22/2023 ALLERGIES Cipro [Ciprofloxacin], Flagyl [Metronidazole Hcl], and Lipitor [Atorvastatin] MEDICATIONS cephALEXin (KEFLEX) 500 mg capsule Take 1 capsule by mouth three times a day for 7 days. hydroCHLOROthiazide 12.5 mg capsule Take 1 capsule by mouth once daily. meloxicam (MOBIC) 7.5 mg tablet Take 1-2 tablets once daily as needed for pain levothyroxine (SYNTHROID) 100 mcg tablet TAKE 1 AND 1/2 TABLETS ON SATURDAY ONLY, TAKE 1 TABLET REST OF DAYS predniSONE (DELTASONE) 10 mg tablet Take by mouth with food. Take 4 tabs daily x 5 days, then 2 tabs daily x 5 days, then 1 tab daily x 5 days, then stop. methotrexate 2.5 mg tablet TAKE 3 TABLETS ONCE WEEKLY LORazepam (ATIVAN) 0.5 mg Take 1 tablet by mouth at bedtime as needed (anxiety) for up to 180 days. rosuvastatin (CRESTOR) 10 mg tablet Take 1 tablet by mouth daily at bedtime. leucovorin (LEUCOVORIN) 5 mg tablet Take one tablet once weekly, 10 to 12 hours after methotrexate administration (Patient taking differently: Take one tablet by mouth once weekly, 10 to 12 hours after methotrexate administration) oxybutynin (DITROPAN) 5 mg tablet Take 1 tablet by mouth two times a day. abatacept (ORENCIA) 250 mg injection Inject 250 mg intravenously once every month. cholecalciferol (VITAMIN D3) 1,000 unit tab Take 1,000 Units by mouth once daily. FAMILY HISTORY Problem Relation Age of Onset Cervical Cancer Mother Ischemic Heart Disease Father Heart Sister Breast Cancer Sister 77 Hypertension Sister Stroke Sister Breast Cancer Sister 78 2009at 73 Hypertension Brother Ischemic Heart Disease Brother Cancer Brother melanoma at face Breast Cancer Paternal Grandmother No Known Problems Daughter No Known Problems Daughter No Known Problems Son Social History Tobacco Use Smoking status: Never Smokeless tobacco: Never Vaping Use Vaping status: Never Used Substance Use Topics Alcohol use: Yes Alcohol/week: 3.0 standard drinks of alcohol Types: 3 Glasses of Wine (5oz) per week Comment: Socially Drug use: No Review of Systems Constitutional: Negative for chills and fever. HENT: Positive for facial swelling. Negative for congestion, ear pain and sore throat. Respiratory: Negative for cough and shortness of breath. Cardiovascular: Negative for chest pain. Gastrointestinal: Negative for diarrhea and vomiting. Objective BP 157/73 Pulse 69 Temp 36.2 C (97.2 F) (Left Tympanic) Resp 16 Wt 55.9 kg (123 lb 3.8 oz) SpO2 100% BMI 23.29 kg/m Physical Exam Vitals and nursing note reviewed. Constitutional: General: She is not in acute distress. Appearance: Normal appearance. She is not toxic-appearing. HENT: Head: Jaw: Swelling present. No trismus. Salivary Glands: Right salivary gland is diffusely enlarged and tender. Comments: Tenderness over right parotid gland with swelling present. No erythema or fluctuance felt. No redness noted on the neck, no lymphatic streaking. No trismus. No tongue or floor of mouth swelling. No purulent discharge in the mouth. Right Ear: Tympanic membrane and ear canal normal. Left Ear: Tympanic membrane and ear canal normal. Nose: Nose normal. Mouth/Throat: Mouth: Mucous membranes are moist. Comments: No purulent discharge from Stensen's duct when parotid gland is massaged. No tongue or floor of mouth swelling. No trismus. Handling secretions. Throat clear. Eyes: Conjunctiva/sclera: Conjunctivae normal. Cardiovascular: Rate and Rhythm: Normal rate and regular rhythm. Pulmonary: Effort: Pulmonary effort is normal. Breath sounds: Normal breath sounds. Skin: General: Skin is warm and dry. Neurological: Mental Status: She is alert. Assessment and Plan ASSESSMENT/PLAN: 1. Parotid sialadenitis - ICD9: 527.2, ICD10: K11.20 -Suspect parotid stone. Patient has history of these. No signs of acute infection on exam. No redness, fluctuance, lymphatic streaking or fever. -Rx for Keflex given to cover for potential early infection. Patient on methotrexate, unable to take Augmentin. -Advised patient supportive treatment at home as well, sucking on sour candy, fluids, massaging the area. -Advised patient if she develops any bad taste in her mouth, purulent discharge into the mouth, fevers, redness, needs to be seen in ER immediately. She understands. -Call ENT on Saturday for follow-up Diagnosis and treatment plan were discussed and questions were answered to the patient's satisfaction. Pt acknowledged understanding of concepts and follow up plan. Specific signs and symptoms that would indicate the need for higher level of care were discussed in detail warranting prompt ER evaluation. SHANTAL Ruggiero documented in this encounter [facility] 02-20-2024 Note HNO ID: [id number] Author: MANDO GIRON APRN.EMISSION SPECIALIST Service: ? Author Type: Nurse Practitioner Type: Progress Notes Filed: 02/20/2024 12:01 Note Text: Orthopaedic Office Note: February 20, 2024 10:35 AM Indiana Mosquera 83 year old History: Indiana is a very pleasant 83 year old female who presents today for gait concerns following her R TKA. She denies any pain whatsoever. She reports sometimes feeling unstable and also reports her family told her she walks with a limp. She is well known to me having had both of her hips replaced and both knees replaced over the last several years. She reports this issue just started coming up over the past 2 months as she has been more active. She is now roughly 6 months s/p R TKA. Subjective: Gait instability Walking with limp No pain Updated ROS: No changes Updated Exam: Right Lower Extremity: KNEE EXAM: Right: Ambulates with limp Knee Alignment: Neutral Incision well healed without erythema or warmth Range of motion is 0 degrees in extension and 120 degrees of flexion. Pain with ROM: No Effusion: None Tender to the palpation of None Pain with patellar compression: No Stability: Anterior/Posterior stable and Varus/Valgus stable Hip Exam: flexion to 100+ degrees, full extension, internal/external rotation adequate and no pain with log roll Neurovascular Status: Sensation Intact and Moves foot and ankle up AND down Leg length discrepancy: right leg is ~1-1.25 inches longer than left leg Updated Imaging: Well positioned total knee replacement (all poly tibia) without evidence for loosening or osteolysis. No fractures Assessment and Plan: Leg length discrepancy Gait instability S/P R TKA [place] and I discussed her current status today. She has no pain whatsoever. X-rays reviewed and showed right total knee arthroplasty without evidence for complication. Her main concern is her gait and walking with a limp. On physical assessment she has roughly 1 to 1.25 inch leg length discrepancy. We also discussed that her right leg may also go longer due to the fact that we straightened out her knee after her knee replacement. I would like for her to go to physical therapy for gait instability and have also provided prescription for shoe lift. We did discuss that these will take some time to ironed out some issues but I do expect her to prove with this. I have no concerns about either of her knees or her hips at this point. She can follow-up with us at 1 year jerry from her right knee replacement. Will like to obtain repeat x-rays of both hips and both knees at that time. Happy to see sooner if needed. All questions answered today. Mando Giron APRN.[facility] Orthopaedic Surgery I spent a total of approximately 25 minutes on the date of the service which included preparing to see the patient, [id number] patient care, completing clinical documentation, obtaining and/or reviewing separately obtained history, performing a medically appropriate examination, counseling and educating the patient/family/caregiver, ordering medications, tests, or procedures, independently interpreting results (not separately reported), communicating results to the patient/family/caregiver, and care coordination (not separately reported). [facility] 02-20-2024 History of Present illness Narrative Orthopaedic Office Note: February 20, 2024 10:35 AM Indiana Gonzales Demetri 83 year old History: Indiana is a very pleasant 83 year old female who presents today for gait concerns following her R TKA. She denies any pain whatsoever. She reports sometimes feeling unstable and also reports her family told her she walks with a limp. She is well known to me having had both of her hips replaced and both knees replaced over the last several years. She reports this issue just started coming up over the past 2 months as she has been more active. She is now roughly 6 months s/p R TKA. Subjective: Gait instability Walking with limp No pain Updated ROS: No changes Updated Exam: Right Lower Extremity: KNEE EXAM: Right: Ambulates with limp Knee Alignment: Neutral Incision well healed without erythema or warmth Range of motion is 0 degrees in extension and 120 degrees of flexion. Pain with ROM: No Effusion: None Tender to the palpation of None Pain with patellar compression: No Stability: Anterior/Posterior stable and Varus/Valgus stable Hip Exam: flexion to 100+ degrees, full extension, internal/external rotation adequate and no pain with log roll Neurovascular Status: Sensation Intact and Moves foot and ankle up & down Leg length discrepancy: right leg is ~1-1.25 inches longer than left leg Updated Imaging: Well positioned total knee replacement (all poly tibia) without evidence for loosening or osteolysis. No fractures Assessment and Plan: Leg length discrepancy Gait instability S/P R TKA [place] and I discussed her current status today. She has no pain whatsoever. X-rays reviewed and showed right total knee arthroplasty without evidence for complication. Her main concern is her gait and walking with a limp. On physical assessment she has roughly 1 to 1.25 inch leg length discrepancy. We also discussed that her right leg may also go longer due to the fact that we straightened out her knee after her knee replacement. I would like for her to go to physical therapy for gait instability and have also provided prescription for shoe lift. We did discuss that these will take some time to ironed out some issues but I do expect her to prove with this. I have no concerns about either of her knees or her hips at this point. She can follow-up with us at 1 year jerry from her right knee replacement. Will like to obtain repeat x-rays of both hips and both knees at that time. Happy to see sooner if needed. All questions answered today. Mando Giron APRN.[facility] Orthopaedic Surgery I spent a total of approximately 25 minutes on the date of the service which included preparing to see the patient, [id number] patient care, completing clinical documentation, obtaining and/or reviewing separately obtained history, performing a medically appropriate examination, counseling and educating the patient/family/caregiver, ordering medications, tests, or procedures, independently interpreting results (not separately reported), communicating results to the patient/family/caregiver, and care coordination (not separately reported). documented in this encounter [facility] 02-20-2024 History of Present illness Narrative Radiology Service Progress Note PATIENT NAME: [place] Mosquera DATE OF SERVICE: February 20, 2024 TIME: 9:59 AM PATIENT IDENTITY VERIFICATION COMPLETED USING TWO (2) IDENTIFIERS: Name and Date of confirmed by patient verbally. FALL SCREENING: Has the patient had 2 falls in the last year or 1 fall with injury or currently using an Ambulatory Assistive Device (Walker, Cane, Wheelchair, Crutches, etc.)? No PATIENT GENDER DATA: Female. status: : No status: NO. PATIENT RELEVANT IMPLANT DATA REVIEWED: Not Applicable PATIENT PRESENTS WITH AN IMPLANTABLE OR ATTACHED GORE CUTTER: No RADIOLOGY DEPARTMENT: General X-ray: Exam(s) Completed: Lower Extremity X-Ray(s): Knee, AP / Lat / Merchant Right and Wt. Bearing PERIPHERAL IV DATA: Not applicable SIGNED BY: Ermelinda Dean February 20, 2024 9:59 AM documented in this encounter [facility] 02-20-2024 Note HNO ID: [id number] Author: HIRA ANNE Tech Service: ? Author Type: Generation Engineering Technologist Type: Progress Notes Filed: 02/20/2024 09:59 Note Text: Radiology Service Progress Note PATIENT NAME: [place] Mosquera DATE OF SERVICE: February 20, 2024 TIME: 9:59 AM PATIENT IDENTITY VERIFICATION COMPLETED USING TWO (2) IDENTIFIERS: Name and Date of confirmed by patient verbally. FALL SCREENING: Has the patient had 2 falls in the last year or 1 fall with injury or currently using an Ambulatory Assistive Device (Walker, Cane, Wheelchair, Crutches, etc.)? No PATIENT GENDER DATA: Female. status: : No status: NO. PATIENT RELEVANT IMPLANT DATA REVIEWED: Not Applicable PATIENT PRESENTS WITH AN IMPLANTABLE OR ATTACHED GORE CUTTER: No RADIOLOGY DEPARTMENT: General X-ray: Exam(s) Completed: Lower Extremity X-Ray(s): Knee, AP / Lat / Merchant Right and Wt. Bearing PERIPHERAL IV DATA: Not applicable SIGNED BY: Ermelinda Dean February 20, 2024 9:59 AM [facility] 02-14-2024 Note HNO ID: [id number] Author: ZANE POTTER MD Service: ? Author Type: Physician Type: Progress Notes Filed: 02/14/2024 10:17 Note Text: This note was created using [employer]. Subjective Patient presents with: Follow Up: discussion Immunizations: Flu vaccination [place] Mosquera is a 83 year old female. She recently presented for chronic right shoulder pain, and this was better after prednisone. She cancelled physical therapy. Her hypertension was fair. She was taking hydrochlorothiazide daily, and not PRN. She was concerned about her spouses's general decline. It was increasingly difficult for her to care for him, but she wanted them to stay at their home. We discussed palliative care versus hospice. Review of Systems Constitutional: Negative for fever and unexpected weight change. HENT: Negative for congestion. Respiratory: Negative for shortness of breath. Cardiovascular: Negative for chest pain. Neurological: Negative for dizziness and headaches. ACTIVE PROBLEM LIST Acquired Hypothyroidism Venous Insufficiency Malignant Neoplasm of Skin Urge Incontinence Facet Hypertrophy of Lumbar Region Seropositive Rheumatoid Arthritis (Hcc) Status Post Total Left Knee Replacement Anxiety Neurosis Primary Osteoarthritis of Left Hip Osteopenia of Multiple Sites S/P Total Knee Replacement Using Cement, Left Primary Osteoarthritis of Right Hip Mixed Hyperlipidemia History of Transient Ischemic Attack (Tia) History of Dvt of Lower Extremity Insomnia Status Post Thr (Total Hip Replacement) Presence of Right Artificial Knee Joint Hypertension Social History Tobacco Use Smoking status: Never Smokeless tobacco: Never Vaping Use Vaping status: Never Used Substance Use Topics Alcohol use: Yes Alcohol/week: 3.0 standard drinks of alcohol Types: 3 Glasses of Wine (5oz) per week Comment: Socially Drug use: No Current Outpatient Medications Medication Sig meloxicam (MOBIC) 7.5 mg tablet Take 1-2 tablets once daily as needed for pain levothyroxine (SYNTHROID) 100 mcg tablet TAKE 1 AND 1/2 TABLETS ON SATURDAY ONLY, TAKE 1 TABLET REST OF DAYS predniSONE (DELTASONE) 10 mg tablet Take by mouth with food. Take 4 tabs daily x 5 days, then 2 tabs daily x 5 days, then 1 tab daily x 5 days, then stop. methotrexate 2.5 mg tablet TAKE 3 TABLETS ONCE WEEKLY hydroCHLOROthiazide 12.5 mg capsule Take 1 capsule by mouth once daily as needed (vertigo). As needed for vertigo LORazepam (ATIVAN) 0.5 mg Take 1 tablet by mouth at bedtime as needed (anxiety) for up to 180 days. rosuvastatin (CRESTOR) 10 mg tablet Take 1 tablet by mouth daily at bedtime. leucovorin (LEUCOVORIN) 5 mg tablet Take one tablet once weekly, 10 to 12 hours after methotrexate administration (Patient taking differently: Take one tablet by mouth once weekly, 10 to 12 hours after methotrexate administration) oxybutynin (DITROPAN) 5 mg tablet Take 1 tablet by mouth two times a day. aspirin, enteric coated (ASPIRIN, ENTERIC COATED) 81 mg EC tablet Take 1 tablet by mouth two times a day for 28 days. abatacept (ORENCIA) 250 mg injection Inject 250 mg intravenously once every month. cholecalciferol (VITAMIN D3) 1,000 unit tab Take 1,000 Units by mouth once daily. No current facility-administered medications for this visit. Objective BP 144/73 (BP Site: Left Arm, BP Position: Sitting, BP Cuff Size: Regular Adult) Pulse 78 Temp 36.3 ?C (97.4 ?F) Resp 12 Ht 154.9 cm (5' 1 ) Wt 55.2 kg (121 lb 11.1 oz) SpO2 100% BMI 22.99 kg/m? Physical Exam Constitutional: General: She is not in acute distress. Cardiovascular: Heart sounds: Normal heart sounds. Pulmonary: Breath sounds: Normal breath sounds. Musculoskeletal: Right lower le+ Pitting Edema present. Left lower le+ Pitting Edema present. Neurological: Mental Status: She is alert. Xray of the shoulder reviewed showing advanced degenerative joint disease. Assessment and Plan 1. Primary hypertension - ICD9: 401.9, ICD10: I10 (primary diagnosis) - Improving control - Continue current medications - Encouraged sodium restriction, DASH or Mediterranean diet - HYDROCHLOROTHIAZIDE 12.5 MG CAPSULE 2. Need for influenza vaccination - ICD9: V04.81, ICD10: Z23 - INFLUENZA VACCINE, PRSV FREE, AGE 65+ YR, HIGH DOSE, TRIVALENT (FLUZONE HIGH-DOSE) 3. Chronic right shoulder pain - ICD9: 719.41, 338.29, ICD10: M25.511, G89.29 - Consider rescheduling PT. 4. Need for COVID-19 vaccine - ICD9: V04.89, ICD10: Z23 - PFIZER-BIONTECH COVID-19 VACCINE AGE 12+ YR (COMIRNATY) Zane Potter MD [facility] 02-14-2024 History of Present illness Narrative This note was created using [employer]. Subjective Patient presents with: Follow Up: discussion Immunizations: Flu vaccination [place] Mosquera is a 83 year old female. She recently presented for chronic right shoulder pain, and this was better after prednisone. She cancelled physical therapy. Her hypertension was fair. She was taking hydrochlorothiazide daily, and not PRN. She was concerned about her spouses's general decline. It was increasingly difficult for her to care for him, but she wanted them to stay at their home. We discussed palliative care versus hospice. Review of Systems Constitutional: Negative for fever and unexpected weight change. HENT: Negative for congestion. Respiratory: Negative for shortness of breath. Cardiovascular: Negative for chest pain. Neurological: Negative for dizziness and headaches. ACTIVE PROBLEM LIST Acquired Hypothyroidism Venous Insufficiency Malignant Neoplasm of Skin Urge Incontinence Facet Hypertrophy of Lumbar Region Seropositive Rheumatoid Arthritis (Hcc) Status Post Total Left Knee Replacement Anxiety Neurosis Primary Osteoarthritis of Left Hip Osteopenia of Multiple Sites S/P Total Knee Replacement Using Cement, Left Primary Osteoarthritis of Right Hip Mixed Hyperlipidemia History of Transient Ischemic Attack (Tia) History of Dvt of Lower Extremity Insomnia Status Post Thr (Total Hip Replacement) Presence of Right Artificial Knee Joint Hypertension Social History Tobacco Use Smoking status: Never Smokeless tobacco: Never Vaping Use Vaping status: Never Used Substance Use Topics Alcohol use: Yes Alcohol/week: 3.0 standard drinks of alcohol Types: 3 Glasses of Wine (5oz) per week Comment: Socially Drug use: No Current Outpatient Medications Medication Sig meloxicam (MOBIC) 7.5 mg tablet Take 1-2 tablets once daily as needed for pain levothyroxine (SYNTHROID) 100 mcg tablet TAKE 1 AND 1/2 TABLETS ON SATURDAY ONLY, TAKE 1 TABLET REST OF DAYS predniSONE (DELTASONE) 10 mg tablet Take by mouth with food. Take 4 tabs daily x 5 days, then 2 tabs daily x 5 days, then 1 tab daily x 5 days, then stop. methotrexate 2.5 mg tablet TAKE 3 TABLETS ONCE WEEKLY hydroCHLOROthiazide 12.5 mg capsule Take 1 capsule by mouth once daily as needed (vertigo). As needed for vertigo LORazepam (ATIVAN) 0.5 mg Take 1 tablet by mouth at bedtime as needed (anxiety) for up to 180 days. rosuvastatin (CRESTOR) 10 mg tablet Take 1 tablet by mouth daily at bedtime. leucovorin (LEUCOVORIN) 5 mg tablet Take one tablet once weekly, 10 to 12 hours after methotrexate administration (Patient taking differently: Take one tablet by mouth once weekly, 10 to 12 hours after methotrexate administration) oxybutynin (DITROPAN) 5 mg tablet Take 1 tablet by mouth two times a day. aspirin, enteric coated (ASPIRIN, ENTERIC COATED) 81 mg EC tablet Take 1 tablet by mouth two times a day for 28 days. abatacept (ORENCIA) 250 mg injection Inject 250 mg intravenously once every month. cholecalciferol (VITAMIN D3) 1,000 unit tab Take 1,000 Units by mouth once daily. No current facility-administered medications for this visit. Objective BP 144/73 (BP Site: Left Arm, BP Position: Sitting, BP Cuff Size: Regular Adult) Pulse 78 Temp 36.3 C (97.4 F) Resp 12 Ht 154.9 cm (5' 1 ) Wt 55.2 kg (121 lb 11.1 oz) SpO2 100% BMI 22.99 kg/m Physical Exam Constitutional: General: She is not in acute distress. Cardiovascular: Heart sounds: Normal heart sounds. Pulmonary: Breath sounds: Normal breath sounds. Musculoskeletal: Right lower le+ Pitting Edema present. Left lower le+ Pitting Edema present. Neurological: Mental Status: She is alert. Xray of the shoulder reviewed showing advanced degenerative joint disease. Assessment and Plan 1. Primary hypertension - ICD9: 401.9, ICD10: I10 (primary diagnosis) - Improving control - Continue current medications - Encouraged sodium restriction, DASH or Mediterranean diet - HYDROCHLOROTHIAZIDE 12.5 MG CAPSULE 2. Need for influenza vaccination - ICD9: V04.81, ICD10: Z23 - INFLUENZA VACCINE, PRSV FREE, AGE 65+ YR, HIGH DOSE, TRIVALENT (FLUZONE HIGH-DOSE) 3. Chronic right shoulder pain - ICD9: 719.41, 338.29, ICD10: M25.511, G89.29 - Consider rescheduling PT. 4. Need for COVID-19 vaccine - ICD9: V04.89, ICD10: Z23 - PFIZER-BIONTECH COVID-19 VACCINE AGE 12+ YR (COMIRNATY) Zane Potter MD documented in this encounter [facility] 02-03-2024 Miscellaneous Notes Mobic rx sent documented in this encounter [facility] 02-03-2024 Telephone encounter Note Mobic rx sent [facility] 01-20-2024 History of Present illness Narrative Radiology Service Progress Note PATIENT NAME: [place] Mosquera DATE OF SERVICE: January 20, 2024 TIME: 1:46 PM PATIENT IDENTITY VERIFICATION COMPLETED USING TWO (2) IDENTIFIERS: Name and Date of confirmed by patient verbally. FALL SCREENING: Has the patient had 2 falls in the last year or 1 fall with injury or currently using an Ambulatory Assistive Device (Walker, Cane, Wheelchair, Crutches, etc.)? No PATIENT GENDER DATA: Female. status: : No status: NO. PATIENT RELEVANT IMPLANT DATA REVIEWED: Yes PATIENT PRESENTS WITH AN IMPLANTABLE OR ATTACHED GORE CUTTER: No RADIOLOGY DEPARTMENT: General X-ray: Exam(s) Completed: Upper Extremity X-Ray(s): Shoulder, AP / TRUE AP / SUPRA OUTLET right PERIPHERAL IV DATA: Not applicable SIGNED BY: RT Brittny(R) January 20, 2024 1:46 PM documented in this encounter [facility] 01-20-2024 Note HNO ID: [id number] Author: HAILEY MORALES RT(R) Service: Radiology Author Type: Technologist Type: Progress Notes Filed: 01/20/2024 13:59 Note Text: Radiology Service Progress Note PATIENT NAME: [place] Mosquera DATE OF SERVICE: January 20, 2024 TIME: 1:46 PM PATIENT IDENTITY VERIFICATION COMPLETED USING TWO (2) IDENTIFIERS: Name and Date of confirmed by patient verbally. FALL SCREENING: Has the patient had 2 falls in the last year or 1 fall with injury or currently using an Ambulatory Assistive Device (Walker, Cane, Wheelchair, Crutches, etc.)? No PATIENT GENDER DATA: Female. status: : No status: NO. PATIENT RELEVANT IMPLANT DATA REVIEWED: Yes PATIENT PRESENTS WITH AN IMPLANTABLE OR ATTACHED GORE CUTTER: No RADIOLOGY DEPARTMENT: General X-ray: Exam(s) Completed: Upper Extremity X-Ray(s): Shoulder, AP / TRUE AP / SUPRA OUTLET right PERIPHERAL IV DATA: Not applicable SIGNED BY: RT Brittny(Lamine) January 20, 2024 1:46 PM [facility] 01-20-2024 History of Present illness Narrative CC: Patient presents with: Pain (Shoulder Pain) HPI [place] Mosquera is a 83 year old female who presents today for right shoulder pain x 5 months, worsening over the past three weeks. Injury: Patient does not recall any specific injury. 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 He is a lot larger than her and she has to lift him in bed, etc. Located: entire right shoulder Described as aching, sometimes sharp Clicking, locking, popping, feeling like the shoulder is not stable, feeling like the shoulder is giving out : shoulder locks up at times, right arm feels weak Associated symptoms: pain is interfering with sleep and ADL's. She notes no neck pain, no radiation of shoulder pain, and no numbness or tingling noted of the upper extremity exhibits aggravating factors of Any movement of the arm except reaching behind. exhibits alleviating factors of none. Treatment: none PMH: RA, this does not feel like an RA flare Review of Systems Constitutional: Negative for chills, diaphoresis and fever. Respiratory: Negative for cough, shortness of breath and wheezing. Cardiovascular: Negative for chest pain, palpitations and leg swelling. PAST MEDICAL HISTORY No date: Acquired hypothyroidism No date: Deep vein thrombosis (DVT) ([facility]) 04/06/2008: Diffuse cystic mastopathy No date: Disorder of bone and cartilage, unspecified Comment: history of osteopenia No date: Diverticulosis of colon (without mention of hemorrhage) No date: Edema 08/31/2013: Hypertension No date: Internal hemorrhoids without mention of complication 11/03/2013: Lumbar disc displacement without myelopathy 11/03/2013: Lumbar radiculopathy 11/03/2013: Lumbar spondylosis 11/17/2014: Lumbar stenosis No date: Malignant neoplasm of skin Comment: face,clavicle,left leg-Per 01/27/2021: Mixed hyperlipidemia 08/29/2020: Ocular migraine 2006: Other malignant neoplasm of skin, site unspecified Comment: SCC face,clavicle,left leg-Per 2004: Polymyalgia rheumatica ([facility]) Comment: Resolved 2005 06/06/2010: Postmenopausal atrophic vaginitis 07/23/2023: Primary osteoarthritis of right knee No date: Rheumatoid arthritis ([facility]) 11/2014: Serotonin syndrome Comment: s/p laminectomy 11/2014- tachycardia with tramadol use. 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 Blaine Duron 07/23/2023: Syncope 06/19/2021: Tendinitis of left hip flexor 08/25/2020: TIA (transient ischemic attack) 10/02/2022: Trochanteric bursitis of both hips 2009: Urge incontinence 2009: Urgency of urination 04/18/2007: Venous insufficiency No date: Vertigo PAST SURGICAL HISTORY No date: ANESTH DIAGNOSTIC ARTHROSCOPIC PROC KNEE JOINT Comment: right No date: BIOPSY BREAST OPEN INCISIONAL Comment: Bx of breast, incisional 07/13/2006: BREAST BIOPSY CORE Comment: U/S needle core upper mid right breast 09/2010: CARPAL TUNNEL Comment: Dr Tello No date: CHOLECYSTECTOMY Comment: lap 03/12/2002: COLONOSCOPY FLX DX W/COLLJ SPEC WHEN PFRMD Comment: Colonoscopy 01/21/2009: COLONOSCOPY FLX DX W/COLLJ SPEC WHEN PFRMD Comment: Colonoscopy; Stricture dilated at colectomy site 04/02/2011: IMPLANT MESH OPN HERNIA RPR/DEBRIDEMENT CLOSURE Comment: abd.hernia repair 11/07/2015: LAMINOTOMY (HEMILAMINECTOMY), WITH DECOMPRESSION OF NERVE ROOT(S); Right Comment: L5-S1 11/16/2014: LAMINOTOMY (HEMILAMINECTOMY), WITH DECOMPRESSION OF NERVE ROOT(S); Left 12/11/2007: LAPAROSCOPY COLECTOMY PARTIAL W/ANASTOMOSIS Comment: Lap. Sigmoid colectomy for diverticulitis 10/01/2006: PAST SURGICAL HISTORY OF Comment: LARISA PROCEDURE DONE ON FACE FOR SQUAMEOUS CELL CA, 03/2007: PAST SURGICAL HISTORY OF Comment: Removal of squamous cell carcinoma from clavicle and left leg by 04/19/2004: PAST SURGICAL HISTORY OF Comment: excision from R ear 06/11/2007: PAST SURGICAL HISTORY OF Comment: cystoscopy/retrograde 03/2013: PAST SURGICAL HISTORY OF Comment: titanium plate removed from left thumb 09/16/2018: PAST SURGICAL HISTORY OF; Right Comment: MOHS procedure, right cheek - [facility] 06/01/2010: SIGMOIDOSCOPY FLX DX W/COLLJ SPEC BR/WA IF PFRMD 01/02/2016: TOTAL HIP REPLACEMENT; Left 02/13/2021: TOTAL HIP REPLACEMENT; Right 05/16/2015: TOTAL KNEE REPLACEMENT; Left Comment: Total Left Knee 07/22/2023: TOTAL KNEE REPLACEMENT; Right ALLERGIES Cipro [Ciprofloxacin], Flagyl [Metronidazole Hcl], and Lipitor [Atorvastatin] MEDICATIONS methotrexate 2.5 mg tablet TAKE 3 TABLETS ONCE WEEKLY meloxicam (MOBIC) 7.5 mg tablet TAKE 1 TABLET DAILY NEEDED hydroCHLOROthiazide 12.5 mg capsule Take 1 capsule by mouth once daily as needed (vertigo). As needed for vertigo LORazepam (ATIVAN) 0.5 mg Take 1 tablet by mouth at bedtime as needed (anxiety) for up to 180 days. rosuvastatin (CRESTOR) 10 mg tablet Take 1 tablet by mouth daily at bedtime. leucovorin (LEUCOVORIN) 5 mg tablet Take one tablet once weekly, 10 to 12 hours after methotrexate administration (Patient taking differently: Take one tablet by mouth once weekly, 10 to 12 hours after methotrexate administration) levothyroxine (SYNTHROID) 100 mcg tablet TAKE 1 AND 1/2 TABLETS ON SATURDAY AND SATURDAY ONLY, TAKE 1 TABLET REST OF DAYS (Patient taking differently: TAKE 1 AND 1/2 TABLETS BY MOUTH ON SATURDAY AND SATURDAY ONLY, TAKE 1 TABLET REST OF DAYS) oxybutynin (DITROPAN) 5 mg tablet Take 1 tablet by mouth two times a day. aspirin, enteric coated (ASPIRIN, ENTERIC COATED) 81 mg EC tablet Take 1 tablet by mouth two times a day for 28 days. abatacept (ORENCIA) 250 mg injection Inject 250 mg intravenously once every month. cholecalciferol (VITAMIN D3) 1,000 unit tab Take 1,000 Units by mouth once daily. FAMILY HISTORY Problem Relation Age of Onset Cervical Cancer Mother Ischemic Heart Disease Father Heart Sister Breast Cancer Sister 77 Hypertension Sister Stroke Sister Breast Cancer Sister 78 2009at 73 Hypertension Brother Ischemic Heart Disease Brother Cancer Brother melanoma at face Breast Cancer Paternal Grandmother No Known Problems Daughter No Known Problems Daughter No Known Problems Son Social History Tobacco Use Smoking status: Never Smokeless tobacco: Never Vaping Use Vaping status: Never Used Substance Use Topics Alcohol use: Yes Alcohol/week: 3.0 standard drinks of alcohol Types: 3 Glasses of Wine (5oz) per week Comment: Socially Drug use: No BP 134/74 Pulse 74 Resp 12 Wt 53.9 kg (118 lb 13.3 oz) SpO2 98% BMI 22.45 kg/m Physical Exam Vitals reviewed. Constitutional: Appearance: Normal appearance. Musculoskeletal: Right shoulder: No swelling, deformity, tenderness, bony tenderness or crepitus. Decreased range of motion (painful). Normal strength. Normal pulse. Right hand: Normal. Cervical back: No pain with movement, spinous process tenderness or muscular tenderness. Normal range of motion. Comments: Right shoulder- Special tests: Drop arm: -, Empty Can: +, Infraspinatus: +, Peoples:+, Neer +. Muscle strength: 5/5 bilaterally. ASSESSMENT/PLAN: 1. Chronic right shoulder pain - ICD9: 719.41, 338.29, ICD10: M25.511, G89.29 Differentials include osteoarthritis, RA, rotator cuff tendonitis secondary to overuse. - offered oral steroids vs cortisone injection, she prefers prednisone; see orders - CONSULT TO PHYSICAL THERAPY, she is unsure if she will schedule this as she is very busy caring for her - XR SHOULDER GENERAL 3V OR MORE AP/TRUE AP/OTHER RIGHT - given handout from [email or web address] with shoulder rehab exercises - follow-up in 2-4 weeks if no improvement or sooner if worsening Prescription instructions reviewed with patient as applicable. Potential red flag symptoms discussed with the patient. Reviewed appropriate action plan to take if red flag symptoms occur. Patient agreeable to treatment plan. Erica Renee APRN.EMISSION SPECIALIST documented in this encounter [facility] 01-20-2024 Note HNO ID: [id number] Author: ERICA RENEE APRN.DEJAN Service: ? Author Type: Nurse Practitioner Type: Progress Notes Filed: 01/20/2024 13:53 Note Text: CC: Patient presents with: Pain (Shoulder Pain) HPI [place] Mosquera is a 83 year old female who presents today for right shoulder pain x 5 months, worsening over the past three weeks. Injury: Patient does not recall any specific injury. 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 He is a lot larger than her and she has to lift him in bed, etc. Located: entire right shoulder Described as aching, sometimes sharp Clicking, locking, popping, feeling like the shoulder is not stable, feeling like the shoulder is giving out : shoulder locks up at times, right arm feels weak Associated symptoms: pain is interfering with sleep and ADL's. She notes no neck pain, no radiation of shoulder pain, and no numbness or tingling noted of the upper extremity exhibits aggravating factors of Any movement of the arm except reaching behind. exhibits alleviating factors of none. Treatment: none PMH: RA, this does not feel like an RA flare Review of Systems Constitutional: Negative for chills, diaphoresis and fever. Respiratory: Negative for cough, shortness of breath and wheezing. Cardiovascular: Negative for chest pain, palpitations and leg swelling. PAST MEDICAL HISTORY No date: Acquired hypothyroidism No date: Deep vein thrombosis (DVT) (FORMERLY [facility]) 04/06/2008: Diffuse cystic mastopathy No date: Disorder of bone and cartilage, unspecified Comment: history of osteopenia No date: Diverticulosis of colon (without mention of hemorrhage) No date: Edema 08/31/2013: Hypertension No date: Internal hemorrhoids without mention of complication 11/03/2013: Lumbar disc displacement without myelopathy 11/03/2013: Lumbar radiculopathy 11/03/2013: Lumbar spondylosis 11/17/2014: Lumbar stenosis No date: Malignant neoplasm of skin Comment: face,clavicle,left leg-Per 01/27/2021: Mixed hyperlipidemia 08/29/2020: Ocular migraine 2007: Other malignant neoplasm of skin, site unspecified Comment: SCC face,clavicle,left leg-Per 2004: Polymyalgia rheumatica (HCC) Comment: Resolved 2005 06/06/2010: Postmenopausal atrophic vaginitis 07/23/2023: Primary osteoarthritis of right knee No date: Rheumatoid arthritis (HCC) 11/2014: Serotonin syndrome Comment: s/p laminectomy 11/2014- tachycardia with tramadol use. 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 Blaine Duron 07/23/2023: Syncope 06/19/2021: Tendinitis of left hip flexor 08/25/2020: TIA (transient ischemic attack) 10/02/2022: Trochanteric bursitis of both hips 2009: Urge incontinence 2009: Urgency of urination 04/18/2007: Venous insufficiency No date: Vertigo PAST SURGICAL HISTORY No date: ANESTH DIAGNOSTIC ARTHROSCOPIC PROC KNEE JOINT Comment: right No date: BIOPSY BREAST OPEN INCISIONAL Comment: Bx of breast, incisional 07/13/2006: BREAST BIOPSY CORE Comment: U/S needle core upper mid right breast 09/2010: CARPAL TUNNEL Comment: Dr Tello No date: CHOLECYSTECTOMY Comment: lap 03/12/2002: COLONOSCOPY FLX DX W/COLLJ SPEC WHEN PFRMD Comment: Colonoscopy 01/21/2009: COLONOSCOPY FLX DX W/COLLJ SPEC WHEN PFRMD Comment: Colonoscopy; Stricture dilated at colectomy site 04/02/2011: IMPLANT MESH OPN HERNIA RPR/DEBRIDEMENT CLOSURE Comment: abd.hernia repair 11/07/2015: LAMINOTOMY (HEMILAMINECTOMY), WITH DECOMPRESSION OF NERVE ROOT(S); Right Comment: L5-S1 11/16/2014: LAMINOTOMY (HEMILAMINECTOMY), WITH DECOMPRESSION OF NERVE ROOT(S); Left 12/11/2007: LAPAROSCOPY COLECTOMY PARTIAL W/ANASTOMOSIS Comment: Lap. Sigmoid colectomy for diverticulitis 10/01/2006: PAST SURGICAL HISTORY OF Comment: LARISA PROCEDURE DONE ON FACE FOR SQUAMEOUS CELL CA, 03/2007: PAST SURGICAL HISTORY OF Comment: Removal of squamous cell carcinoma from clavicle and left leg by 04/19/2004: PAST SURGICAL HISTORY OF Comment: excision from R ear 06/11/2007: PAST SURGICAL HISTORY OF Comment: cystoscopy/retrograde 03/2013: PAST SURGICAL HISTORY OF Comment: titanium plate removed from left thumb 09/16/2018: PAST SURGICAL HISTORY OF; Right Comment: MOHS procedure, right cheek - [facility] 06/01/2010: SIGMOIDOSCOPY FLX DX W/COLLJ SPEC BR/WA IF PFRMD 01/02/2016: TOTAL HIP REPLACEMENT; Left 02/13/2021: TOTAL HIP REPLACEMENT; Right 05/16/2015: TOTAL KNEE REPLACEMENT; Left Comment: Total Left Knee 07/22/2023: TOTAL KNEE REPLACEMENT; Right ALLERGIES Cipro [Ciprofloxacin], Flagyl [Metronidazole Hcl], and Lipitor [Atorvastatin] MEDICATIONS methotrexate 2.5 mg tablet TAKE 3 TABLETS ONCE WEEKLY meloxicam (MOBIC) 7.5 mg tablet TAKE 1 TABLET DAILY NEEDED hydroCHLOROthiazide 12.5 mg capsule Take 1 capsule by mouth once daily as needed (vertigo). As (more content not included)... [facility] 01-17-2024 Telephone encounter Note The following approved medication requests have been transmitted electronically. Requested Prescriptions Signed Prescriptions Disp Refills methotrexate 2.5 mg tablet 36 tablet 0 Sig: TAKE 3 TABLETS ONCE WEEKLY Authorizing Provider: ANJANA CLARK APRN.EMISSION SPECIALIST [facility] 01-17-2024 Miscellaneous Notes The following approved medication requests have been transmitted electronically. Requested Prescriptions Signed Prescriptions Disp Refills methotrexate 2.5 mg tablet 36 tablet 0 Sig: TAKE 3 TABLETS ONCE WEEKLY Authorizing Provider: ANJANA CLARK APRN.DEJAN Patient has been identified by name and date of : Yes RX INSTRUCTIONS: Patient aware RX will be sent to pharmacy. No need to notify patient. LAST APPOINTMENT: 10/15/2023 UPCOMING APPOINTMENT: 04/16/2024 LABS: Hemoglobin (g/dL) Date Value 01/15/2024 12.6 06/22/2021 12.9 Hematocrit (%) Date Value 01/15/2024 38.8 06/22/2021 37.8 WBC (k/uL) Date Value 01/15/2024 6.96 06/22/2021 6.14 Platelet Count (k/uL) Date Value 01/15/2024 229 06/22/2021 199 AST Date Value Ref Range Status 01/15/2024 33 13 - 35 U/L Final ALT Date Value Ref Range Status 01/15/2024 22 7 - 38 U/L Final Creatinine Date Value Ref Range Status 01/15/2024 0.84 0.58 - 0.96 mg/dL Final No results found for: URICACID Inez Browning MA documented in this encounter [facility] 01-17-2024 Telephone encounter Note Patient has been identified by name and date of : Yes RX INSTRUCTIONS: Patient aware RX will be sent to pharmacy. No need to notify patient. LAST APPOINTMENT: 10/15/2023 UPCOMING APPOINTMENT: 04/16/2024 LABS: Hemoglobin (g/dL) Date Value 01/15/2024 12.6 06/22/2021 12.9 Hematocrit (%) Date Value 01/15/2024 38.8 06/22/2021 37.8 WBC (k/uL) Date Value 01/15/2024 6.96 06/22/2021 6.14 Platelet Count (k/uL) Date Value 01/15/2024 229 06/22/2021 199 AST Date Value Ref Range Status 01/15/2024 33 13 - 35 U/L Final ALT Date Value Ref Range Status 01/15/2024 22 7 - 38 U/L Final Creatinine Date Value Ref Range Status 01/15/2024 0.84 0.58 - 0.96 mg/dL Final No results found for: URICACID Inez Browning MA [facility] 01-14-2024 Telephone encounter Note Patient has been identified by name and date of : Yes RX INSTRUCTIONS: Patient aware RX will be sent to pharmacy. No need to notify patient. LAST APPOINTMENT: 10/15/2023 UPCOMING APPOINTMENT: 04/16/2024 LABS: Hemoglobin (g/dL) Date Value 10/10/2023 12.1 06/22/2021 12.9 Hematocrit (%) Date Value 10/10/2023 36.1 06/22/2021 37.8 WBC (k/uL) Date Value 10/10/2023 6.51 06/22/2021 6.14 Platelet Count (k/uL) Date Value 10/10/2023 211 06/22/2021 199 AST Date Value Ref Range Status 11/28/2023 26 13 - 35 U/L Final ALT Date Value Ref Range Status 11/28/2023 17 7 - 38 U/L Final Creatinine Date Value Ref Range Status 11/28/2023 0.74 0.58 - 0.96 mg/dL Final No results found for: URICACID Toro Humphreis MA [facility] 01-14-2024 Miscellaneous Notes Patient has been identified by name and date of : Yes RX INSTRUCTIONS: Patient aware RX will be sent to pharmacy. No need to notify patient. LAST APPOINTMENT: 10/15/2023 UPCOMING APPOINTMENT: 04/16/2024 LABS: Hemoglobin (g/dL) Date Value 10/10/2023 12.1 06/22/2021 12.9 Hematocrit (%) Date Value 10/10/2023 36.1 06/22/2021 37.8 WBC (k/uL) Date Value 10/10/2023 6.51 06/22/2021 6.14 Platelet Count (k/uL) Date Value 10/10/2023 211 06/22/2021 199 AST Date Value Ref Range Status 11/28/2023 26 13 - 35 U/L Final ALT Date Value Ref Range Status 11/28/2023 17 7 - 38 U/L Final Creatinine Date Value Ref Range Status 11/28/2023 0.74 0.58 - 0.96 mg/dL Final No results found for: URICACID Toro Humphries MA documented in this encounter [facility] 12-30-2023 History of Present illness Narrative Radiology Service Progress Note PATIENT NAME: [place] Mosquera DATE OF SERVICE: December 30, 2023 TIME: 1:54 PM PATIENT IDENTITY VERIFICATION COMPLETED USING TWO (2) IDENTIFIERS: Name and Date of confirmed by patient verbally. FALL SCREENING: Has the patient had 2 falls in the last year or 1 fall with injury or currently using an Ambulatory Assistive Device (Walker, Cane, Wheelchair, Crutches, etc.)? No PATIENT GENDER DATA: Female. status: : No status: NO. PATIENT RELEVANT IMPLANT DATA REVIEWED: Not Applicable PATIENT PRESENTS WITH AN IMPLANTABLE OR ATTACHED GORE CUTTER: No RADIOLOGY DEPARTMENT: Bone Density PERIPHERAL IV DATA: Not applicable SIGNED BY: RT Madeline(Lamine) December 30, 2023 1:54 PM documented in this encounter [facility] 12-30-2023 Note HNO ID: [id number] Author: SALAZAR NAGEL RT(R) Service: ? Author Type: Technologist Type: Progress Notes Filed: 12/30/2023 14:23 Note Text: Radiology Service Progress Note PATIENT NAME: [place] Mosquera DATE OF SERVICE: December 30, 2023 TIME: 1:54 PM PATIENT IDENTITY VERIFICATION COMPLETED USING TWO (2) IDENTIFIERS: Name and Date of confirmed by patient verbally. FALL SCREENING: Has the patient had 2 falls in the last year or 1 fall with injury or currently using an Ambulatory Assistive Device (Walker, Cane, Wheelchair, Crutches, etc.)? No PATIENT GENDER DATA: Female. status: : No status: NO. PATIENT RELEVANT IMPLANT DATA REVIEWED: Not Applicable PATIENT PRESENTS WITH AN IMPLANTABLE OR ATTACHED GORE CUTTER: No RADIOLOGY DEPARTMENT: Bone Density PERIPHERAL IV DATA: Not applicable SIGNED BY: Salazar Nagel RT(R) December 30, 2023 1:54 PM [facility] 11-28-2023 Note HNO ID: [id number] Author: BEBE RITTER RN Service: ? Author Type: Registered Nurse Type: Progress Notes Filed: 11/28/2023 15:04 Note Text: Reclast last infused in July 2023, orders are for yearly. Orders dated for October; appt note states yearly. Contacted Dr. Rico for clarification. No response at this time. Will hold Reclast today until valid orders are obtained. [facility] 11-28-2023 History of Present illness Narrative Reclast last infused in July 2023, orders are for yearly. Orders dated for October; appt note states yearly. Contacted Dr. Rico for clarification. No response at this time. Will hold Reclast today until valid orders are obtained. documented in this encounter [facility] 11-26-2023 Telephone encounter Note Spoke with patient and scheduled. Jaclyn Duke [facility] 11-26-2023 Miscellaneous Notes Spoke with patient and scheduled. Jaclyn Duke PSS - please ask to [place] come in at 1:30 for labwork prior to treatment on (lab will need to be scheduled as well). Thank you documented in this encounter [facility] 11-26-2023 Telephone encounter Note PSS - please ask to [place] come in at 1:30 for labwork prior to treatment on (lab will need to be scheduled as well). Thank you [facility] 10-31-2023 Note HNO ID: [id number] Author: THALIA ABARCA RN Service: ? Author Type: Registered Nurse Type: Progress Notes Filed: 10/31/2023 15:40 Note Text: Pt stated she wanted Yearly Reclast next tx day. Pt to get labs drawn prior. Pt verbalized understanding. Thalia Abarca RN [facility] 10-31-2023 History of Present illness Narrative Pt stated she wanted Yearly Reclast next tx day. Pt to get labs drawn prior. Pt verbalized understanding. Thalia Abarca RN documented in this encounter [facility] 10-21-2023 Telephone encounter Note Patient confirmed [facility] Work Phone: 10-21-2023 Miscellaneous Notes Patient confirmed Scheduled reclast same day as orencia on 10/30. Start email sent for reclast Message left for patient to contact office and confirm. Please disregard message on Orencia. Patient has two future appointments scheduled. Please review and advise on Reclast orders. Thank you. Patient is due for Reclast and Orencia. Once labs (Vit D + Calcium) return pt will need to be scheduled. Last Infusion was done in [place]. Patient's preference is [place]. Chelsey Kelly MA documented in this encounter [facility] 10-21-2023 Telephone encounter Note Scheduled reclast same day as orencia on 10/30. Start email sent for reclast Message left for patient to contact office and confirm. [facility] 10-21-2023 Telephone encounter Note Please disregard message on Orencia. Patient has two future appointments scheduled. Please review and advise on Reclast orders. Thank you. [facility] 10-17-2023 Note HNO ID: [id number] Author: ZANE POTTER MD Service: ? Author Type: Physician Type: Progress Notes Filed: 10/17/2023 16:38 Note Text: This note was created using Maimair[employer]. Subjective Patient presents with: Medicare Wellness Exam Establish Care [place] Mosquera is a 83 year old female here to establish care from FP department. She had caregiver stress, anxiety, insomnia and fpc use of lorazepam. She only took this now at bedtime, and we reviewed the risks of lorazepam. She did not recall a diagnosis of hypertension and was on hydrochlorothiazide presumably for Meniere's, started by [facility] years ago for dizziness. Her blood pressure had been labile on review of records. She had a chronic bulge of the right lower abdomen, otherwise asymptomatic. Review of Systems Constitutional: Negative for appetite change, fatigue, fever and unexpected weight change. HENT: Negative for congestion, sneezing and trouble swallowing. Eyes: Negative for visual disturbance. Respiratory: Negative for cough, shortness of breath and wheezing. Cardiovascular: Positive for leg swelling. Negative for chest pain and palpitations. Gastrointestinal: Negative for abdominal pain, constipation, diarrhea, nausea and vomiting. Genitourinary: Positive for urgency. Negative for difficulty urinating, dysuria, hematuria, vaginal bleeding and vaginal discharge. Musculoskeletal: Positive for arthralgias. Negative for back pain, gait problem, joint swelling, myalgias, neck pain and neck stiffness. Skin: Negative for color change. Neurological: Negative for dizziness, syncope, speech difficulty and headaches. Psychiatric/Behavioral: Positive for sleep disturbance. Negative for dysphoric mood. The patient is nervous/anxious. PAST MEDICAL HISTORY Diagnosis Date Acquired hypothyroidism Deep vein thrombosis (DVT) ([facility]) Diffuse cystic mastopathy 04/06/2008 Disorder of bone and cartilage, unspecified history of osteopenia Diverticulosis of colon (without mention of hemorrhage) Edema Hypertension 08/31/2013 Internal hemorrhoids without mention of complication Lumbar disc displacement without myelopathy 11/03/2013 Lumbar radiculopathy 11/03/2013 Lumbar spondylosis 11/03/2013 Lumbar stenosis 11/17/2014 Malignant neoplasm of skin face,clavicle,left leg-Per Mixed hyperlipidemia 01/27/2021 Ocular migraine 08/29/2020 Other malignant neoplasm of skin, site unspecified 2006 SCC face,clavicle,left leg-Per Polymyalgia rheumatica (HCC) 2005 Resolved 2004 Postmenopausal atrophic vaginitis 06/06/2010 Primary osteoarthritis of right knee 07/23/2023 Rheumatoid arthritis (HCC) 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 Blaine Duron Syncope 07/23/2023 Tendinitis of left hip flexor 06/19/2021 TIA (transient ischemic attack) 08/25/2020 Trochanteric bursitis of both hips 10/02/2022 Urge incontinence 2009 Urgency of urination 2009 Venous insufficiency 04/18/2007 Vertigo PAST SURGICAL HISTORY Procedure Laterality Date ANESTH DIAGNOSTIC ARTHROSCOPIC PROC KNEE JOINT right BIOPSY BREAST OPEN INCISIONAL Bx of breast, incisional BREAST BIOPSY CORE 07/13/2006 U/S needle core upper mid right breast CARPAL TUNNEL 09/2010 Dr Tello CHOLECYSTECTOMY lap COLONOSCOPY FLX DX W/COLLJ SPEC WHEN PFRMD 03/12/2002 Colonoscopy COLONOSCOPY FLX DX W/COLLJ SPEC WHEN PFRMD 01/21/2009 Colonoscopy; Stricture dilated at colectomy site IMPLANT MESH OPN HERNIA RPR/DEBRIDEMENT CLOSURE 04/02/2011 abd.hernia repair LAMINOTOMY (HEMILAMINECTOMY), WITH DECOMPRESSION OF NERVE ROOT(S) Right 11/07/2015 L5-S1 LAMINOTOMY (HEMILAMINECTOMY), WITH DECOMPRESSION OF NERVE ROOT(S) Left 11/16/2014 LAPAROSCOPY COLECTOMY PARTIAL W/ANASTOMOSIS 12/11/2007 Lap. Sigmoid colectomy for diverticulitis PAST SURGICAL HISTORY OF 10/01/2006 LARISA PROCEDURE DONE ON FACE FOR SQUAMEOUS CELL CA, PAST SURGICAL HISTORY OF 03/2007 Removal of squamous cell carcinoma from clavicle and left leg by PAST SURGICAL HISTORY OF 04/19/2004 excision from R ear PAST SURGICAL HISTORY OF 06/11/2007 cystoscopy/retrograde PAST SURGICAL HISTORY OF 03/2013 titanium plate removed from left thumb PAST SURGICAL HISTORY OF Right 09/16/2018 MOHS procedure, right cheek - [facility] SIGMOIDOSCOPY FLX DX W/COLLJ SPEC BR/WA IF PFRMD 06/01/2010 TOTAL HIP REPLACEMENT Left 01/02/2016 TOTAL HIP REPLACEMENT Right 02/13/2021 TOTAL KNEE REPLACEMENT Left 05/16/2015 Total Left Knee TOTAL KNEE REPLACEMENT Right 07/22/2023 Social History Tobacco Use Smoking status: Never Smokeless tobacco: Never Vaping Use Vaping Use: Never used Substance Use Topics Alcohol use: Yes Alcohol/week: 3.0 standard drinks of alcohol Types: 3 Glasses of Wine (5oz) per week Comment: Socially Drug (more content not included)... [facility] 10-17-2023 History of Present illness Narrative This note was created using Maim[employer]. Subjective Patient presents with: Medicare Wellness Exam Establish Care [place] Mosquera is a 83 year old female here to establish care from department. She had caregiver stress, anxiety, insomnia and fpc use of lorazepam. She only took this now at bedtime, and we reviewed the risks of lorazepam. She did not recall a diagnosis of hypertension and was on hydrochlorothiazide presumably for Meniere's, started by [facility] years ago for dizziness. Her blood pressure had been labile on review of records. She had a chronic bulge of the right lower abdomen, otherwise asymptomatic. Review of Systems Constitutional: Negative for appetite change, fatigue, fever and unexpected weight change. HENT: Negative for congestion, sneezing and trouble swallowing. Eyes: Negative for visual disturbance. Respiratory: Negative for cough, shortness of breath and wheezing. Cardiovascular: Positive for leg swelling. Negative for chest pain and palpitations. Gastrointestinal: Negative for abdominal pain, constipation, diarrhea, nausea and vomiting. Genitourinary: Positive for urgency. Negative for difficulty urinating, dysuria, hematuria, vaginal bleeding and vaginal discharge. Musculoskeletal: Positive for arthralgias. Negative for back pain, gait problem, joint swelling, myalgias, neck pain and neck stiffness. Skin: Negative for color change. Neurological: Negative for dizziness, syncope, speech difficulty and headaches. Psychiatric/Behavioral: Positive for sleep disturbance. Negative for dysphoric mood. The patient is nervous/anxious. PAST MEDICAL HISTORY Diagnosis Date Acquired hypothyroidism Deep vein thrombosis (DVT) ([facility]) Diffuse cystic mastopathy 04/06/2008 Disorder of bone and cartilage, unspecified history of osteopenia Diverticulosis of colon (without mention of hemorrhage) Edema Hypertension 08/31/2013 Internal hemorrhoids without mention of complication Lumbar disc displacement without myelopathy 11/03/2013 Lumbar radiculopathy 11/03/2013 Lumbar spondylosis 11/03/2013 Lumbar stenosis 11/17/2014 Malignant neoplasm of skin face,clavicle,left leg-Per Mixed hyperlipidemia 01/27/2021 Ocular migraine 08/29/2020 Other malignant neoplasm of skin, site unspecified 2006 SCC face,clavicle,left leg-Per Polymyalgia rheumatica (HCC) 2005 Resolved 2005 Postmenopausal atrophic vaginitis 06/06/2010 Primary osteoarthritis of right knee 07/23/2023 Rheumatoid arthritis (HCC) 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 Blaine Duron Syncope 07/23/2023 Tendinitis of left hip flexor 06/19/2021 TIA (transient ischemic attack) 08/25/2020 Trochanteric bursitis of both hips 10/02/2022 Urge incontinence 2009 Urgency of urination 2009 Venous insufficiency 04/18/2007 Vertigo PAST SURGICAL HISTORY Procedure Laterality Date ANESTH DIAGNOSTIC ARTHROSCOPIC PROC KNEE JOINT right BIOPSY BREAST OPEN INCISIONAL Bx of breast, incisional BREAST BIOPSY CORE 07/13/2006 U/S needle core upper mid right breast CARPAL TUNNEL 09/2010 Dr Tello CHOLECYSTECTOMY lap COLONOSCOPY FLX DX W/COLLJ SPEC WHEN PFRMD 03/12/2002 Colonoscopy COLONOSCOPY FLX DX W/COLLJ SPEC WHEN PFRMD 01/21/2009 Colonoscopy; Stricture dilated at colectomy site IMPLANT MESH OPN HERNIA RPR/DEBRIDEMENT CLOSURE 04/02/2011 abd.hernia repair LAMINOTOMY (HEMILAMINECTOMY), WITH DECOMPRESSION OF NERVE ROOT(S) Right 11/07/2015 L5-S1 LAMINOTOMY (HEMILAMINECTOMY), WITH DECOMPRESSION OF NERVE ROOT(S) Left 11/16/2014 LAPAROSCOPY COLECTOMY PARTIAL W/ANASTOMOSIS 12/11/2007 Lap. Sigmoid colectomy for diverticulitis PAST SURGICAL HISTORY OF 10/01/2006 LARISA PROCEDURE DONE ON FACE FOR SQUAMEOUS CELL CA, PAST SURGICAL HISTORY OF 03/2007 Removal of squamous cell carcinoma from clavicle and left leg by PAST SURGICAL HISTORY OF 04/19/2004 excision from R ear PAST SURGICAL HISTORY OF 06/11/2007 cystoscopy/retrograde PAST SURGICAL HISTORY OF 03/2013 titanium plate removed from left thumb PAST SURGICAL HISTORY OF Right 09/16/2018 MOHS procedure, right cheek - [facility] SIGMOIDOSCOPY FLX DX W/COLLJ SPEC BR/WA IF PFRMD 06/01/2010 TOTAL HIP REPLACEMENT Left 01/02/2016 TOTAL HIP REPLACEMENT Right 02/13/2021 TOTAL KNEE REPLACEMENT Left 05/16/2015 Total Left Knee TOTAL KNEE REPLACEMENT Right 07/22/2023 Social History Tobacco Use Smoking status: Never Smokeless tobacco: Never Vaping Use Vaping Use: Never used Substance Use Topics Alcohol use: Yes Alcohol/week: 3.0 standard drinks of alcohol Types: 3 Glasses of Wine (5oz) per week Comment: Socially Drug use: No ALLERGIES Allergen Reactions Cipro [Ciprofloxaci* Diarrhea Flagyl [Metronidazo* Diarrhea Lipitor [Atorvastat* Myalgia Myalgia, lethargic Current Outpatient Medications Medication Sig rosuvastatin (CRESTOR) 10 mg tablet Take 1 tablet by mouth daily at bedtime. methotrexate 2.5 mg tablet TAKE 3 TABLETS ONCE WEEKLY (Patient taking differently: TAKE 3 TABLETS BY [facility] ONCE WEEK[facility]) leucovorin (LEUCOVORIN) 5 mg tablet Take one tablet once weekly, 10 to 12 hours after methotrexate administration (Patient taking differently: Take one tablet by mouth once weekly, 10 to 12 hours after methotrexate administration) meloxicam (MOBIC) 7.5 mg tablet Take 1 tablet by mouth once daily as needed. levothyroxine (SYNTHROID) 100 mcg tablet TAKE 1 AND 1/2 TABLETS ON SATURDAY AND SATURDAY ONLY, TAKE 1 TABLET REST OF DAYS (Patient taking differently: TAKE 1 AND 1/2 TABLETS BY MOUTH ON SATURDAY AND SATURDAY ONLY, TAKE 1 TABLET REST OF DAYS) oxybutynin (DITROPAN) 5 mg tablet Take 1 tablet by mouth two times a day. methotrexate 2.5 mg tablet TAKE 3 TABLETS ONCE WEEKLY (Patient taking differently: Take by mouth. TAKE 3 TABLETS BY MOUTH ONCE WEEKLY) aspirin, enteric coated (ASPIRIN, ENTERIC COATED) 81 mg EC tablet Take 1 tablet by mouth two times a day for 28 days. abatacept (ORENCIA) 250 mg injection Inject 250 mg intravenously once every month. cholecalciferol (VITAMIN D3) 1,000 unit tab Take 1,000 Units by mouth once daily. hydroCHLOROthiazide 12.5 mg capsule Take 1 capsule by mouth once daily as needed (vertigo). As needed for vertigo LORazepam (ATIVAN) 0.5 mg Take 1 tablet by mouth at bedtime as needed (anxiety) for up to 180 days. No current facility-administered medications for this visit. Objective BP 156/69 (BP Site: Left Arm, BP Position: Sitting, BP Cuff Size: Large Adult) Pulse 60 Ht 154.9 cm (5' 1 ) Wt 54.4 kg (120 lb) BMI 22.67 kg/m Physical Exam Constitutional: General: She is not in acute distress. Appearance: She is not ill-appearing. HENT: Head: Normocephalic. Right Ear: External ear normal. Left Ear: External ear normal. Nose: Nose normal. Eyes: Extraocular Movements: Extraocular movements intact. Conjunctiva/sclera: Conjunctivae normal. Pupils: Pupils are equal, round, and reactive to light. Neck: Vascular: No carotid bruit. Cardiovascular: Rate and Rhythm: Normal rate and regular rhythm. Heart sounds: No murmur heard. No gallop. Pulmonary: Effort: No respiratory distress. Breath sounds: No wheezing or rales. Abdominal: Palpations: Abdomen is soft. There is no mass. Tenderness: There is no abdominal tenderness. Hernia: No hernia is present. Musculoskeletal: General: No tenderness. Cervical back: Neck supple. Right lower le+ Pitting Edema present. Left lower le+ Pitting Edema present. Lymphadenopathy: Cervical: No cervical adenopathy. Skin: Comments: Generalized keratotic skin lesions of varying sizes.. Neurological: General: No focal deficit present. Mental Status: She is alert and oriented to person, place, and time. Cranial Nerves: No cranial nerve deficit. Sensory: No sensory deficit. Motor: No weakness. Gait: Gait normal. Psychiatric: Mood and Affect: Mood normal. Assessment and Plan 1. Medicare annual wellness visit, subsequent - ICD9: V70.0, ICD10: Z00.00 (primary diagnosis) See wellness note. 2. Acquired hypothyroidism - ICD9: 244.9, ICD10: E03.9 - continue current dose of Synthroid - THYROID STIMULATING HORMONE 3. Venous insufficiency - ICD9: 459.81, ICD10: I87.2 - Stable. 4. Urge incontinence - ICD9: 788.31, ICD10: N39.41 - Controlled on medication. 5. Elevated blood pressure reading - ICD9: 796.2, ICD10: R03.0 - Encouraged dietary sodium restriction/DASH diet - I reviewed records, and there has been diagnosis of hypertension in the past. - Goal of BP <130/80 6. 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 I encouraged gradual decrease in use. - LORAZEPAM 0.5 MG TABLET 7. Need for COVID-19 vaccine - ICD9: V04.89, ICD10: Z23 - [employer] COVID-19 VACCINE (2022- SEASON) AGE 12+ YR 8. Screening for colon cancer - ICD9: V76.51, ICD10: Z12.11 Shared medical decision making was done. - COLOGUARD 9. Primary hypertension - ICD9: 401.9, ICD10: I10 - Worsening control - HYDROCHLOROTHIAZIDE 12.5 MG CAPSULE Zane Potter MD Images from the original note were not included. [place] Mosquera is a 83 year old female here for a Medicare wellness visit. Medicare Health Risk Assessment General Health Very good Exercise: Minutes/Day 0 min Exercise: Days/Week 0 days Alcohol: Daily Use 2-3 times a week Alcohol: Drinks/Day 1 or 2 Alcohol: 6 or more drinks Never Feel off balance No Concerns: Teeth/Dentures No Concerns: Sexual function No Troubled by feelings Stressed Frequency: Eating healthy diet Nearly every day ADLs requiring help None of the above Safety precautions in home/vehicle Yes Smoke, vape, chews tobacco No Difficulty hearing No Difficulty seeing No Current Providers Specialists: I have reviewed specialist-related care of the patient in the medical record. Current care team: Patient Care Team: Jerry Arnold MD as PCP - General (Family Medicine) Vern Rico MD (Rheumatology. Shmuel Ferguson MD as Rhinestone Setter (Cardiology- [facility]) Sabina Jefferson MD as (Orthopedics) Luis Alberto Chambers MD (Ophthalmology [facility]). Jessica [facility] Medical/Family history review Reviewed and updated problem list, medical/surgical/family/social history, medications, and allergies. Opioid use review Opioid Medications (last 90 days) 08/01/2023 00:00 08/06/2023 08/13/2023 23:59 Opioid Medications hydrocodone/acetaminophen 1-2 tablet q 6 H PRN ORAL 1-2 tablet q 6 H PRN ORAL-Discontinued tramadol HCl 50 mg q 8 H PRN for pain. ORAL -Rx End Details Outpatient prescription Anxiety/Depression screening PHQ-2 Score: 0 Recommendation: no further intervention at this time Cognitive screening Mini Cog Score: 5 Cognitive screening reviewed and No further action needed (score 3-5). Functional Observation Was the patient's Timed Up & Go test unsteady or ? 12 seconds? No Advance Care Planning Surrogate decision maker and/or advance care plan documented Measurements BP 156/69 Pulse 60 Ht 5' 1 (1.55m) Wt 120 lb (54.4kg) BMI 22.69 kg/(m^2). Vision Screening: Follows with optometry/ophthalmology Right: 20/50 Left: 20/ 50 Both: 20/40 Assessment/Plan Medicare annual wellness visit, subsequent (Z00.00) - Counseled on healthy diet and regular exercise - Fall avoidance information provided - Personalized prevention plan provided - Covid booster recommended. - Pros and cons of colorectal cancer screening were discussed. Cologuard ordered. documented in this encounter [facility] 10-17-2023 Note HNO ID: [id number] Author: ZANE POTTER MD Service: ? Author Type: Physician Type: Progress Notes Filed: 10/17/2023 16:38 Note Text: Indiana Mosquera is a 83 year old female here for a Medicare wellness visit. Medicare Health Risk Assessment General Health Very good Exercise: Minutes/Day 0 min Exercise: Days/Week 0 days Alcohol: Daily Use 2-3 times a week Alcohol: Drinks/Day 1 or 2 Alcohol: 6 or more drinks Never Feel off balance No Concerns: Teeth/Dentures No Concerns: Sexual function No Troubled by feelings Stressed Frequency: Eating healthy diet Nearly every day ADLs requiring help None of the above Safety precautions in home/vehicle Yes Smoke, vape, chews tobacco No Difficulty hearing No Difficulty seeing No Current Providers Specialists: I have reviewed specialist-related care of the patient in the medical record. Current care team: Patient Care Team: Jerry Arnold MD as PCP - General (Family Medicine) Vern Rico MD (Rheumatology. Shmuel Ferguson MD as Rhinestone Setter (Cardiology- [facility] [place]) Sabina Jefferson MD as (Orthopedics) Luis Alberto Chambers MD (Ophthalmology [facility]). Jessica Lord [facility] Medical/Family history review Reviewed and updated problem list, medical/surgical/family/social history, medications, and allergies. Opioid use review Opioid Medications (last 90 days) 08/01/2023 00:00 08/06/2023 08/13/2023 23:59 Opioid Medications hydrocodone/acetaminophen 1-2 tablet q 6 H PRN ORAL 1-2 tablet q 6 H PRN ORAL-Discontinued tramadol HCl 50 mg q 8 H PRN for pain. ORAL -Rx End Details Outpatient prescription Anxiety/Depression screening PHQ-2 Score: 0 Recommendation: no further intervention at this time Cognitive screening Mini Cog Score: 5 Cognitive screening reviewed and No further action needed (score 3-5). Functional Observation Was the patient's Timed Up AND Go test unsteady or ? 12 seconds? No Advance Care Planning Surrogate decision maker and/or advance care plan documented Measurements BP 156/69 Pulse 60 Ht 5' 1 (1.55m) Wt 120 lb (54.4kg) BMI 22.69 kg/(m2). Vision Screening: Follows with optometry/ophthalmology Right: 20/50 Left: 20/ 50 Both: 20/40 Assessment/Plan Medicare annual wellness visit, subsequent (Z00.00) - Counseled on healthy diet and regular exercise - Fall avoidance information provided - Personalized prevention plan provided - Covid booster recommended. - Pros and cons of colorectal cancer screening were discussed. Cologuard ordered. [facility] 10-15-2023 Telephone encounter Note Patient is due for Reclast and Orencia. Once labs (Vit D + Calcium) return pt will need to be scheduled. Last Infusion was done in [place]. Patient's preference is [facility]. Chelsey Kelly MA [facility] 10-15-2023 Instructions Vern Rico MD - 10/15/2023 10:51 AM EDT Your next set of labs are due around 01/10/24. Lab orders are in the system so please have the blood draw done then. You don't need to be fasting for the blood draw. documented in this encounter [facility] 10-15-2023 Note HNO ID: [id number] Author: VERN RICO MD Service: ? Author Type: Physician Type: Progress Notes Filed: 10/15/2023 11:00 Note Text: On 10/15/2023, I had the pleasure of evaluating Indiana Mosquera in a follow-up [facility] Rheumatology appointment for seropositive RA. HPI: To review, Indiana Mosquera is a 83 year old female - In , written for fosamax weekly - In Dec, diagnosed with seropositive RA. Started on MTX. Confirmatory Hep B surface antigen negative and hep B core ab negative. Discussed with Dr. Beatriz Connors, findings therefore not consistent with hepatitis B infection - In May, started enbrel - In November, enbrel stopped and humira started - In Feb, humira stopped and orencia SC started - In , switched from orencia SC to IV - In Mar, saw Dr. Miller. Reported doing well. Reported less aching with doing GF diet. Due to lymphopenia, advised to reduce MTX dose to 10mg weekly - On 08/19/19, received orencia - In August, reported some increased aching due to the stress of the pandemic, which had actually been leveling off. - In Feb, had reclast infusion. Had 2 days of pain following the infusion - In Feb, had a hip replacement. Surgeon was pounding on the femur and it split. - In Jun, reported feeling pretty good. - In Jun, reported feeling well. No hx of fracture. No jaw pain. Had a tooth extracted 6-7 weeks prior - On 09/14/21, received reclast. Achy for a couple of days - In July, reported doing pretty well. Last flare was about 4 yrs prior - In July, s/p R TKA - Today, reports doing pretty well. - No interim fracture, jaw pain or recent/plans for any invasive dental procedures. - Had orencia IV on 10/03/23 - with lymphoma in remission, but now with metastatic squamous cell PAST MEDICAL HISTORY Diagnosis Date Benign neoplasm of breast bilat Deep vein thrombosis (DVT) (HCC) Disorder of bone and cartilage, unspecified history of osteopenia Diverticulosis of colon (without mention of hemorrhage) Dyslipidemia Edema Hypertension Internal hemorrhoids without mention of complication Other malignant neoplasm of skin, site unspecified 2006 SCC face,clavicle,left leg-Per Polymyalgia rheumatica (HCC) Resolved 2004 Rheumatoid arthritis (HCC) 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 Blaine Duron Unspecified hypothyroidism Urge incontinence 2008 Urgency of urination 2009 Vertigo PAST SURGICAL HISTORY Procedure Laterality Date ANESTH DIAGNOSTIC ARTHROSCOPIC PROC KNEE JOINT right ARTHRP ACETBLR/PROX FEM PROSTC AGRFT/ALGRFT Left 01/02/2016 Hip replacement, total BIOPSY BREAST OPEN INCISIONAL Bx of breast, incisional BREAST BIOPSY CORE 07/13/2006 U/S needle core upper mid right breast CARPAL TUNNEL 09/2010 Dr Tello CHOLECYSTECTOMY lap COLECTOMY PARTIAL W/ANASTOMOSIS 11/2007 Laparoscopic Sigmoid colectomy for diverticulitis COLONOSCOPY FLX DX W/COLLJ SPEC WHEN PFRMD 03/12/2002 Colonoscopy COLONOSCOPY FLX DX W/COLLJ SPEC WHEN PFRMD 01/21/2009 Colonoscopy; Stricture dilated at colectomy site IMPLANT MESH OPN HERNIA RPR/DEBRIDEMENT CLOSURE 04/02/2011 PAST SURGICAL HISTORY OF 10/01/2006 LARISA PROCEDURE DONE ON FACE FOR SQUAMEOUS CELL CA, PAST SURGICAL HISTORY OF 03/2007 Removal of squamous cell carcinoma from clavicle and left leg by PAST SURGICAL HISTORY OF 04/19/2004 excision from R ear PAST SURGICAL HISTORY OF 06/11/2007 cystoscopy/retrograde PAST SURGICAL HISTORY OF 03/2013 titanium plate removed from left thumb PAST SURGICAL HISTORY OF 11/2014 laminectomy PAST SURGICAL HISTORY OF Left 05/16/2015 Total Left Knee PAST SURGICAL HISTORY OF 07/2015 laminectomy PAST SURGICAL HISTORY OF Right 09/16/2018 MOHS procedure, right cheek - [facility] REPAIR FIRST ABDOMINAL WALL HERNIA 04/02/2011 SIGMOIDOSCOPY FLX DX W/COLLJ SPEC BR/WA IF PFRMD 06/01/2010 TOTAL HIP REPLACEMENT Right 02/13/2021 TOTAL KNEE REPLACEMENT Right 07/22/2023 ALLERGIES Allergen Reactions Lipitor [Atorvastat* Myalgia Myalgia, lethargic Adhesive Rash bandaids and tape Antiviral Drugs Diarrhea Cipro [Ciprofloxaci* Diarrhea Flagyl [Metronidazo* Diarrhea Ultram [Tramadol Hc* Other: See Comments When taken with celexa, felt like skin was hot and had heart palpitations MEDICATIONS: Current Outpatient Medications Medication Sig rosuvastatin (CRESTOR) 10 mg tablet Take 1 tablet by mouth daily at bedtime. LORazepam (ATIVAN) 0.5 mg Take 1 tablet by mouth two times a day as needed (anxiety) for up to 90 days. methotrexate 2.5 mg tablet TAKE 3 TABLETS ONCE WEEKLY (Patient taking differently: TAKE 3 TABLETS BY [facility] ONCE WEEKLY) leucovorin (LEUCOVORIN) 5 mg tablet Take one tablet once weekly, 10 to 12 hours after methotrexate administrati (more content not included)... [facility] 10-15-2023 History of Present illness Narrative On 10/15/2023, I had the pleasure of evaluating Indiana Mosquera in a follow-up [facility] Rheumatology appointment for seropositive RA. HPI: To review, Indiana Mosquera is a 83 year old female - In , written for fosamax weekly - In Dec, diagnosed with seropositive RA. Started on MTX. Confirmatory Hep B surface antigen negative and hep B core ab negative. Discussed with Dr. Beatriz Connors, findings therefore not consistent with hepatitis B infection - In May, started enbrel - In November, enbrel stopped and humira started - In Feb, humira stopped and orencia SC started - In , switched from orencia SC to IV - In Mar, saw Dr. Miller. Reported doing well. Reported less aching with doing GF diet. Due to lymphopenia, advised to reduce MTX dose to 10mg weekly - On 08/19/19, received orencia - In August, reported some increased aching due to the stress of the pandemic, which had actually been leveling off. - In Feb, had reclast infusion. Had 2 days of pain following the infusion - In Feb, had a hip replacement. Surgeon was pounding on the femur and it split. - In Jun, reported feeling pretty good. - In Jun, reported feeling well. No hx of fracture. No jaw pain. Had a tooth extracted 6-7 weeks prior - On 09/14/21, received reclast. Achy for a couple of days - In July, reported doing pretty well. Last flare was about 4 yrs prior - In July, s/p R TKA - Today, reports doing pretty well. - No interim fracture, jaw pain or recent/plans for any invasive dental procedures. - Had orencia IV on 10/03/23 - with lymphoma in remission, but now with metastatic squamous cell PAST MEDICAL HISTORY Diagnosis Date Benign neoplasm of breast bilat Deep vein thrombosis (DVT) (HCC) Disorder of bone and cartilage, unspecified history of osteopenia Diverticulosis of colon (without mention of hemorrhage) Dyslipidemia Edema Hypertension Internal hemorrhoids without mention of complication Other malignant neoplasm of skin, site unspecified 2006 SCC face,clavicle,left leg-Per Polymyalgia rheumatica (HCC) Resolved 2004 Rheumatoid arthritis (HCC) 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 Blaine Duron Unspecified hypothyroidism Urge incontinence 2009 Urgency of urination 2009 Vertigo PAST SURGICAL HISTORY Procedure Laterality Date ANESTH DIAGNOSTIC ARTHROSCOPIC PROC KNEE JOINT right ARTHRP ACETBLR/PROX FEM PROSTC AGRFT/ALGRFT Left 01/02/2016 Hip replacement, total BIOPSY BREAST OPEN INCISIONAL Bx of breast, incisional BREAST BIOPSY CORE 07/13/2006 U/S needle core upper mid right breast CARPAL TUNNEL 09/2010 Dr Tello CHOLECYSTECTOMY lap COLECTOMY PARTIAL W/ANASTOMOSIS 11/2007 Laparoscopic Sigmoid colectomy for diverticulitis COLONOSCOPY FLX DX W/COLLJ SPEC WHEN PFRMD 03/12/2002 Colonoscopy COLONOSCOPY FLX DX W/COLLJ SPEC WHEN PFRMD 01/21/2009 Colonoscopy; Stricture dilated at colectomy site IMPLANT MESH OPN HERNIA RPR/DEBRIDEMENT CLOSURE 04/02/2011 PAST SURGICAL HISTORY OF 10/01/2006 LARISA PROCEDURE DONE ON FACE FOR SQUAMEOUS CELL CA, PAST SURGICAL HISTORY OF 03/2007 Removal of squamous cell carcinoma from clavicle and left leg by PAST SURGICAL HISTORY OF 04/19/2004 excision from R ear PAST SURGICAL HISTORY OF 06/11/2007 cystoscopy/retrograde PAST SURGICAL HISTORY OF 03/2013 titanium plate removed from left thumb PAST SURGICAL HISTORY OF 11/2014 laminectomy PAST SURGICAL HISTORY OF Left 05/16/2015 Total Left Knee PAST SURGICAL HISTORY OF 07/2015 laminectomy PAST SURGICAL HISTORY OF Right 09/16/2018 MOHS procedure, right cheek - [facility] REPAIR FIRST ABDOMINAL WALL HERNIA 04/02/2011 SIGMOIDOSCOPY FLX DX W/COLLJ SPEC BR/WA IF PFRMD 06/01/2010 TOTAL HIP REPLACEMENT Right 02/13/2021 TOTAL KNEE REPLACEMENT Right 07/22/2023 ALLERGIES Allergen Reactions Lipitor [Atorvastat* Myalgia Myalgia, lethargic Adhesive Rash bandaids and tape Antiviral Drugs Diarrhea Cipro [Ciprofloxaci* Diarrhea Flagyl [Metronidazo* Diarrhea Ultram [Tramadol Hc* Other: See Comments When taken with celexa, felt like skin was hot and had heart palpitations MEDICATIONS: Current Outpatient Medications Medication Sig rosuvastatin (CRESTOR) 10 mg tablet Take 1 tablet by mouth daily at bedtime. LORazepam (ATIVAN) 0.5 mg Take 1 tablet by mouth two times a day as needed (anxiety) for up to 90 days. methotrexate 2.5 mg tablet TAKE 3 TABLETS ONCE WEEKLY (Patient taking differently: TAKE 3 TABLETS BY [facility] ONCE WEEKLY) leucovorin (LEUCOVORIN) 5 mg tablet Take one tablet once weekly, 10 to 12 hours after methotrexate administration (Patient taking differently: Take one tablet by mouth once weekly, 10 to 12 hours after methotrexate administration) meloxicam (MOBIC) 7.5 mg tablet Take 1 tablet by mouth once daily as needed. levothyroxine (SYNTHROID) 100 mcg tablet TAKE 1 AND 1/2 TABLETS ON SATURDAY AND SATURDAY ONLY, TAKE 1 TABLET REST OF DAYS (Patient taking differently: TAKE 1 AND 1/2 TABLETS BY MOUTH ON SATURDAY AND SATURDAY ONLY, TAKE 1 TABLET REST OF DAYS) oxybutynin (DITROPAN) 5 mg tablet Take 1 tablet by mouth two times a day. methotrexate 2.5 mg tablet TAKE 3 TABLETS ONCE WEEKLY (Patient taking differently: Take by mouth. TAKE 3 TABLETS BY MOUTH ONCE WEEKLY) hydroCHLOROthiazide 12.5 mg capsule Take 1 capsule by mouth once daily as needed (vertigo). As needed for vertigo abatacept (ORENCIA) 250 mg injection Inject 250 mg intravenously once every month. cholecalciferol (VITAMIN D3) 1,000 unit tab Take 1,000 Units by mouth once daily. acetaminophen (TYLENOL) 500 mg tablet Take 1,000 mg by mouth every 8 hours as needed for pain. aspirin, enteric coated (ASPIRIN, ENTERIC COATED) 81 mg EC tablet Take 1 tablet by mouth two times a day for 28 days. ascorbic acid, vitamin C, (VITAMIN C) 500 mg tablet Take 1 tablet by mouth two times a day with meals for [address] (PROTONIX) 20 mg tablet Take 1 tablet by mouth every morning for 14 days. multivitamin tablet Take 1 tablet by mouth once daily. No current facility-administered medications for this visit. FAMILY HISTORY Problem Relation Age of Onset Cervical Cancer Mother Ischemic Heart Disease Father Heart Sister Breast Cancer Paternal Grandmother Hypertension Sister Stroke Sister Breast Cancer Sister 2009at 73 Hypertension Brother Ischemic Heart Disease Brother Cancer Brother melanoma at face SOCIAL HISTORY: Lives in [place] with . Tobacco use: None Alcohol use: 4 drinks/week REVIEW OF SYSTEMS: reviewed 02/23 systems, as above PHYSICAL EXAM: VITALS: Blood pressure 138/79, pulse 62, temperature 36.6 C (97.8 F), temperature source Temporal, height 160 cm (5' 3 ), weight 54 kg (119 lb 0.8 oz). CONSTITUTIONAL: Well-appearing, in NAD. SKIN: No rash. No alopecia. No sclerodactyly, calcinosis, telangiectasias, digital ulcers, or skin thickening. EYES: No scleral icterus or conjunctivitis ENT and Mouth: External ears normal. Nares normal. RESPIRATORY: Normal breath sounds, clear to auscultation. CARDIOVASCULAR: Regular rate and rhythm, no murmurs or rubs EXTREMITIES/LYMPH: No edema bilaterally NEURO: Awake, alert and oriented, normal gait MUSCULOSKELETAL: JOINT APPEARANCE: No erythema or warmth of any upper or lower extremity joint. RANGE OF MOTION: Able to fully close fists and curl fingers bilaterally. SWOLLEN JOINTS/SYNOVITIS: No synovitis of any joint. TENDER JOINTS: Tenderness to palpation of the R knee LABORATORY: Latest Ref Rng 10/10/2023 WBC 3.70 - 11.00 k/uL 6.51 RBC 3.90 - 5.20 m/uL 3.81 (L) Hemoglobin 11.5 - 15.5 g/dL 12.1 Platelet Count 150 - 400 k/uL 211 MPV 9.0 - 12.7 fL 9.3 Absolute nRBC <0.01 k/uL <0.01 Creatinine 0.58 - 0.96 mg/dL 0.77 eGFR >=60 mL/min/1.73m 77 ALT 7 - 38 U/L 16 AST 13 - 35 U/L 28 Component Latest Ref Rng & Units 10/24/2016 TB Result Negative Negative TB Antigen Response <0.35 IU/mL 0.00 Mitogen Response >0.49 IU/mL >10.00 TB Interpretation No evidence of current or previous infection with Mycobacterium tuberculosis. Component Latest Ref Rng & Units 10/24/2016 Hep B Core Ab, Total Negative Negative Hep C Antibody IA Negative Negative Hep B Surface Ag Negative Initially reactive (A) Hep B Surface Ab, Qual Negative Negative Component Latest Ref Rng & Units 10/27/2010 11/01/2010 Rheumatoid Factor <20 IU/mL 60 (H) CCP Antibody, IgG Units <15 STUDIES: *Dec DXA- IMPRESSION: THE LOWEST T-SCORE IS -4.0 IN THE RIGHT FOREARM No previous RIGHT forearm for comparison 1) DIAGNOSIS (based on BMD alone): OSTEOPOROSIS Lumbar spine (L1-L4): 1.448 g/cm2 , T-score 2.2, Z-score 4.4 . RIGHT Forearm, Distal 1/3 of Radius: 0.529 , T-score -4.0, Z-score 1.2 . *Dec DEXA- The calculated bone mineral density of the lumbar spine is 1.417 g/sq cm, with a corresponding T score of 2. The calculated bone mineral density of the right femoral neck is 0.820 g/sq cm, with a corresponding T-score of -1.6. The calculated bone mineral density total of the right hip is 0.734 g/sq cm, with a corresponding T-score of -2.2. FRAX score: 10-year probability of fracture is 18% for major osteoporotic and 5% for hip (RF: RA) *October xray hands- FUSION OF LEFT 1ST MCP JOINT SUGGESTIVE OF RHEUMATOID. OSTEOARTHRITIS OF BOTH TRISCAPHE JOINTS, LEFT WORSE THAN RIGHT. *September DEXA- osteopenia LUMBAR SPINE: BMD = 1.08 g/cm2, which is 0.3 SDs (T-Score) for mean peak bone mass of young normals 2.8 SDs (Z-Score) for mean peak bone mass matched for age, sex, weight, ethnicity Comment: There is been a 3.7% decrease in bone density in the lumbar spine. Which is statistically significant RIGHT total hip: BMD = 0.770 g/cm2, which is -1.4 SDs (T-Score) for mean peak bone mass of young normals 0.5 SDs (Z-Score) for mean peak bone mass matched for age, sex, weight, ethnicity RIGHT FEMORAL NECK: BMD = 0.70 g/cm2, which is -1.3 SDs (T-Score) for mean peak bone mass of young normals 0.8 SDs (Z-Score) for mean peak bone mass matched for age, sex, weight, ethnicity Comment: There has been a 10.8% decrease in bone density in the left femoral neck. Which is statistically significant 10-year Fracture Risk (FRAX): Major osteoporotic fracture risk 22% Hip fracture risk 5.6% IMPRESSION and PLAN: 1. 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 Stable - Continue methotrexate 7.5mg PO weekly along with folic acid 1mg daily. - Contine routine methotrexate lab monitoring every 3 months, next due Dec. Standing lab orders are in place. Verbal and written reminders provided. Will notify of results via [employer] - Continue orencia IV every 4 weeks (no PA required with Medicare A/B). Therapy plan orders are in 2. Osteoarthritis: Hip, knee - Continue ortho management - Mobic prn 3. Osteopenia: About 30 yrs ago, broke hand after slipping on ice. On fosamax for 2 years, stopped around due to BMD normalization. With osteopenia per DEXA. Dec DEXA with osteopenia, high FRAX. In Feb, started reclast (had 2 days of pain following). In Feb, had hip surgery-femur reportedly split while surgeon was hammering it. Advised this is would not clearly be considered a fragility fracture. But that either way, continued treatment advisable. 2nd reclast in September and 3rd reclast in September (09/26/22). Dec DXA unable to compare forearm, hadn't been checked before. - Continue reclast, due now (no PA needed given Medicare A/B). Therapy tx plan signed and in place. - Check Ca and vit D levels. Notify of results via [employer] - Continue calcium and vitamin D supplementation - Check DEXA in Dec. Notify of results via [employer] 4. Lumbar spinal stenosis: - Home exercises - Consider referral to spine clinic in the future prn 5. General health maintenance: - Completed the covid vaccination series (completed 07/04/20), moderna. Dec. - Advised to continue follow-up with PCP for routine health maintenance and malignancy screening Follow-up in 6 & 18 months with Anjana and 12 months with me or sooner if needed. Patient was instructed to call if any questions or concerns. Thank you for allowing me to participate in the care of your patient. Vern Rico MD documented in this encounter [facility] 10-02-2023 Note Formatting of this n ote might be different from the original. October 02, 2023 PID: [id number] [place] Mosquera [address] [place] [address] Dear Ms. Mosquera, We are pleased to inform you that the results of your recent breast imaging exam on 10/02/2023 are normal. Your mammogram demonstrates that you have dense breast tissue, which could hide abnormalities. Dense breast tissue, in and of itself, is a relatively common condition. Therefore, this information is not provided to cause undue concern; rather, it is to raise your awareness and promote discussion with your health care provider regarding the presence of dense breast tissue in addition to other risk factors. Early detection of cancer is very important. We also understand recommendations regarding breast cancer screening are controversial. Please discuss with your primary care provider which strategy is best for you and whether a mammogram is right for you. Your imaging studies and report will be kept on file at [facility] as part of your permanent medical record and are available for your continuing care. Thank you for allowing us to help in meeting your health care needs. Sincerely, Dr. Melendez Interpreting Radiologist [facility] (Normal over 40) [facility] 10-02-2023 Miscellaneous Notes October 02, 2023 PID: [id number] [place] Mosquera [address] [place] [address] Dear Ms. Mosquera, We are pleased to inform you that the results of your recent breast imaging exam on 10/02/2023 are normal. Your mammogram demonstrates that you have dense breast tissue, which could hide abnormalities. Dense breast tissue, in and of itself, is a relatively common condition. Therefore, this information is not provided to cause undue concern; rather, it is to raise your awareness and promote discussion with your health care provider regarding the presence of dense breast tissue in addition to other risk factors. Early detection of cancer is very important. We also understand recommendations regarding breast cancer screening are controversial. Please discuss with your primary care provider which strategy is best for you and whether a mammogram is right for you. Your imaging studies and report will be kept on file at [facility] as part of your permanent medical record and are available for your continuing care. Thank you for allowing us to help in meeting your health care needs. Sincerely, Dr. Melendez Interpreting Radiologist [facility] (Normal over 40) documented in this encounter [facility] 10-02-2023 History of Present illness Narrative Radiology Service Progress Note PATIENT NAME: Indiana Mosquera DATE OF SERVICE: October 02, 2023 TIME: 8:59 AM PATIENT IDENTITY VERIFICATION COMPLETED USING TWO (2) IDENTIFIERS: Name and Date of confirmed by patient verbally. FALL SCREENING: Has the patient had 2 falls in the last year or 1 fall with injury or currently using an Ambulatory Assistive Device (Walker, Cane, Wheelchair, Crutches, etc.)? No PATIENT GENDER DATA: Female. status: : No status: NO. PATIENT RELEVANT IMPLANT DATA REVIEWED: Not Applicable PATIENT PRESENTS WITH AN IMPLANTABLE OR ATTACHED GORE CUTTER: No RADIOLOGY DEPARTMENT: Mammography PERIPHERAL IV DATA: Not applicable SIGNED BY: Castro Sheldon October 02, 2023 8:59 AM documented in this encounter [facility] 10-02-2023 Note HNO ID: [id number] Author: DYLAN BRAGG Mammo Tech Service: ? Author Type: Generation Engineering Technologist Type: Progress Notes Filed: 10/02/2023 09:00 Note Text: Radiology Service Progress Note PATIENT NAME: Indiana Mosquera DATE OF SERVICE: October 02, 2023 TIME: 8:59 AM PATIENT IDENTITY VERIFICATION COMPLETED USING TWO (2) IDENTIFIERS: Name and Date of confirmed by patient verbally. FALL SCREENING: Has the patient had 2 falls in the last year or 1 fall with injury or currently using an Ambulatory Assistive Device (Walker, Cane, Wheelchair, Crutches, etc.)? No PATIENT GENDER DATA: Female. status: : No status: NO. PATIENT RELEVANT IMPLANT DATA REVIEWED: Not Applicable PATIENT PRESENTS WITH AN IMPLANTABLE OR ATTACHED GORE CUTTER: No RADIOLOGY DEPARTMENT: Mammography PERIPHERAL IV DATA: Not applicable SIGNED BY: Dylan Bragg [employer] October 02, 2023 8:59 AM [facility] 09-23-2023 Telephone encounter Note The following approved medication requests have been transmitted electronically. Requested Prescriptions Signed Prescriptions Disp Refills rosuvastatin (CRESTOR) 10 mg tablet 90 tablet 3 Sig: Take 1 tablet by mouth daily at bedtime. Po Delgadillo APRN.CNP [facility] 09-23-2023 Miscellaneous Notes The following approved medication requests have been transmitted electronically. Requested Prescriptions Signed Prescriptions Disp Refills rosuvastatin (CRESTOR) 10 mg tablet 90 tablet 3 Sig: Take 1 tablet by mouth daily at bedtime. Po Delgadillo APRN.CNP documented in this encounter [facility] 09-17-2023 Note HNO ID: [id number] Author: SABINA JEFFERSON MD Service: ? Author Type: Physician Type: Progress Notes Filed: 09/17/2023 15:00 Note Text: Post-op Office Visit [place] Mosquera 83 year old September 17, 2023 3:00 PM History: [place] Mosquera Is now s/p RIGHT TKA. Post-operative course has been without complication. Subjective: Patient reports minimal pain. Overall is doing well. weaning ambulatory aid offf opioid pain medication Objective: Ambulates with minimal limp Incision well-approximated, no drainage, normal alexandra-incisional erythema ROM 0 - 120 Distally DP/PT palpable Distally S/S/SP/DP/T intact at baseline Distally DF/EHL/PF intact at baseline Negative destinee/calf tenderness Xrays: No new today Assessment and Plan: [place] Mosquera Is here for a second post-op appointment, overall doing well -continued ice, rest, and use of non-narcotic analgesia as needed -discussed home exercises -WBAT on operative extremity -continue ankle pumps and dvt ppx through 4 weeks -will see back at 1 year post-op for repeat exam and xrays--can see sooner if needed -discussed red flag symptoms of acutely increasing pain, new erythema, new swelling, drainage, shortness of breath Sabina Jefferson MD Orthopaedic Surgery [facility] 09-17-2023 History of Present illness Narrative Post-op Office Visit [place] Mosquera 83 year old September 17, 2023 3:00 PM History: [place] Mosquera Is now s/p RIGHT TKA. Post-operative course has been without complication. Subjective: Patient reports minimal pain. Overall is doing well. weaning ambulatory aid offf opioid pain medication Objective: Ambulates with minimal limp Incision well-approximated, no drainage, normal alexandra-incisional erythema ROM 0 - 120 Distally DP/PT palpable Distally S/S/SP/DP/T intact at baseline Distally DF/EHL/PF intact at baseline Negative destinee/calf tenderness Xrays: No new today Assessment and Plan: [place] Mosquera Is here for a second post-op appointment, overall doing well -continued ice, rest, and use of non-narcotic analgesia as needed -discussed home exercises -WBAT on operative extremity -continue ankle pumps and dvt ppx through 4 weeks -will see back at 1 year post-op for repeat exam and xrays--can see sooner if needed -discussed red flag symptoms of acutely increasing pain, new erythema, new swelling, drainage, shortness of breath Sabina Jefferson MD Orthopaedic Surgery documented in this encounter [facility] 09-17-2023 History of Present illness Narrative Program_ID:[id number] Access Code: [email or web address] URL: [email or web address] Date: 09-17-2023 Prepared By: Geoffrey Daniel Program Notes Total Knee Replacement - Day 1 OP PT. Exercises - Supine Heel Slide with Strap - 2 x daily - 7 x weekly - 2-3 sets - 10-20 reps - Knee Flexion Step - 2 x daily - 7 x weekly - 2 sets - 10 reps - Active Straight Leg Raise with Quad Set - 2 x daily - 5-6 x weekly - 2 sets - 8-10 reps - Standing Hip Abduction with Counter Support - 2 x daily - 5-6 x weekly - 2-3 sets - 8-12 reps - Sit to Stand - 2 x daily - 5-6 x weekly - 2 sets - 8-10 reps - Step Up - 2 x daily - 5-6 x weekly - 2 sets - 10-15 reps - Lateral Step Up - 2 x daily - 5-6 x weekly - 2 sets - 10-15 reps - Side Stepping with Resistance at Thighs - 2 x daily - 5-6 x weekly - 2 sets - reps - Wall Quarter Squat - 2 x daily - 5-6 x weekly - 2-3 sets - 10 reps Images from the original note were not included. Episode Visit Count: 9 Therapist That Will Accept/Oversee The Plan Of Care: Geoffrey Daniel PT. Start of Care Date: 08/13/23 Onset Date: 07/22/23 Plan of Care Certification Date: 08/13/23 Next Certification Due Date: 09/17/23 Patient Identified by Name and Date of : Yes REHABILITATION AND SPORTS THERAPY PHYSICAL THERAPY DISCONTINUANCE OF CARE PLAN OF CARE UPDATE: Assessment: [place] Mosquera is discontinued from Physical Therapy services due to goal achievement. and Patient/Client declining further intervention. Patient was seen for 9 visits from Start of Care Date: 08/13/23 to 09/17/2023 and treatment included: Therapeutic exercise, Manual therapy, and Gait training. Updated: 09/17/23. Goals for Episode of Care: created on 08/13/23 through 11/05/23 Patient reported outcome of physical function and self-efficacy will increase T-score by a minimum 5 points. (MET) [place] in home exercise program. (MET) Patient will decrease pain rating by 2 points to meet minimal clinical important difference for numeric pain rating scale. (MET) Patient will increase active ROM of R knee to 0-125 degrees to allow the patient to improve walking in the community and stair navigation as well as performance of ADLs/IADLs. (MET) Patient will demonstrate increase in RLE strength to 5/5 during manual muscle testing in order to improve function for basic self-care tasks, home management tasks, leisure/recreation skills, and prior functional tasks. (MET) Patient will be able to return to normal gait unassisted and without AD. (MET) Patient Goals: Full function of her knee and able to walk unassisted. SUBJECTIVE: Patient reports at 95% of baseline. No issues overall, states she would like to be discharged today. Feeling confident with everything and it will help QOL with assisting with . Notes seeing Dr. Jefferson later today for post-op appt. Pain: Pain Pain Level: 0 Pain Location: Knee - Right Post Treatment Pain Post Treatment Pain Level: No Change Post Treatment Pain Location: Knee - Right PROMIS Scales 09/13/2023 08/12/2023 05/27/2023 Higher is Better Phys Func - Score 50 (within normal limits) 33 (moderate dysfunction) 41 (mild dysfunction) Phys Func - Percentile 50 4 18 Self-Eff Symptom - Score 48 (Average) 42 (Average) 53 (Average) Self-Eff Symptom - Percentile 42 21 62 T-scores: mean of general population = 50. 5 points is clinically meaningfully difference Percentiles provide an indication of how the patient's score ranks in relation to the general population. Higher percentile rankings indicate better function/quality of life. 50th percentile is the average of the general population and indicates half of respondents had a worse score. OBJECTIVE MEASURES WITH LEVEL OF FUNCTION: LE AROM R Knee Extension: 0 Degrees R Knee Flexion: 122 Degrees LE PROM R Knee Extension: 1 Degrees R Knee Flexion: 126 Degrees (AAROM w/ Strap.) LE Strength R LE Strength: Grossly 5/5 L LE Strength: Grossly 5/5 R Knee Extension (L3): 5/5 R Knee Flexion: 5/5 L Knee Extension (L3): 5/5 L Knee Flexion: 5/5 Gait Gait Observation: Slight limp on the R causing mild trunk lean. Well improved & should continue to improve. Patient aware of deficits and how to correct. TREATMENT: Therapeutic Exercise: 1: R Heel slides on table with strap: 1x20. 2: R Heel Slides AROM: 1x20. 3: R Wall Slide/Squats: 1x5. 4: *Objective Measures Taken. 5: *Reconciled HEP; discussed parameters and how to create a unique plan that fits her lifestyle for continued adherance and progression of R Knee Improvement. Skilled Intervention: Patient was educated in proper exercise technique and purpose for exercises. Reviewed and educated patient on additions/changes for home exercise program as above (*). Skilled judgment was used in selection of appropriate interventions. Provided written instruction for home exercise program to facilitate proper performance and compliance. Correct performance of therapeutic exercises was facilitated with verbal, visual, and tactile cuing. Patient education as noted. Billing Therapeutic Exercise Treatment Minutes: 29 Skilled Treatment Time Minutes (timed and untimed codes): 29 Total Session Time (minutes): 29 Session Start Time : 1031 Session Stop Time : 1100 Geoffrey Daniel PT documented in this encounter [facility] 09-17-2023 Note HNO ID: [id number] Author: GEOFFREY DANIEL PT Service: ? Author Type: Physical Therapist Type: Progress Notes Filed: 09/17/2023 11:03 Note Text: Episode Visit Count: 9 Therapist That Will Accept/Oversee The Plan Of Care: Geoffrey Daniel PT. Start of Care Date: 08/13/23 Onset Date: 07/22/23 Plan of Care Certification Date: 08/13/23 Next Certification Due Date: 09/17/23 Patient Identified by Name and Date of : Yes REHABILITATION AND SPORTS THERAPY PHYSICAL THERAPY DISCONTINUANCE OF CARE PLAN OF CARE UPDATE: Assessment: [place] Mosquera is discontinued from Physical Therapy services due to goal achievement. and Patient/Client declining further intervention. Patient was seen for 9 visits from Start of Care Date: 08/13/23 to 09/17/2023 and treatment included: Therapeutic exercise, Manual therapy, and Gait training. Updated: 09/17/23. Goals for Episode of Care: created on 08/13/23 through 11/05/23 Patient reported outcome of physical function and self-efficacy will increase T-score by a minimum 5 points. (MET) [place] in home exercise program. (MET) Patient will decrease pain rating by 2 points to meet minimal clinical important difference for numeric pain rating scale. (MET) Patient will increase active ROM of R knee to 0-125 degrees to allow the patient to improve walking in the community and stair navigation as well as performance of ADLs/IADLs. (MET) Patient will demonstrate increase in RLE strength to 5/5 during manual muscle testing in order to improve function for basic self-care tasks, home management tasks, leisure/recreation skills, and prior functional tasks. (MET) Patient will be able to return to normal gait unassisted and without AD. (MET) Patient Goals: Full function of her knee and able to walk unassisted. SUBJECTIVE: Patient reports at 95% of baseline. No issues overall, states she would like to be discharged today. Feeling confident with everything and it will help QOL with assisting with . Notes seeing Dr. Jefferson later today for post-op appt. Pain: Pain Pain Level: 0 Pain Location: Knee - Right Post Treatment Pain Post Treatment Pain Level: No Change Post Treatment Pain Location: Knee - Right PROMIS Scales 09/13/2023 08/12/2023 05/27/2023 Higher is Better Phys Func - Score 50 (within normal limits) 33 (moderate dysfunction) 41 (mild dysfunction) Phys Func - Percentile 50 4 18 Self-Eff Symptom - Score 48 (Average) 42 (Average) 53 (Average) Self-Eff Symptom - Percentile 42 21 62 T-scores: mean of general population = 50. 5 points is clinically meaningfully difference Percentiles provide an indication of how the patient's score ranks in relation to the general population. Higher percentile rankings indicate better function/quality of life. 50th percentile is the average of the general population and indicates half of respondents had a worse score. OBJECTIVE MEASURES WITH LEVEL OF FUNCTION: LE AROM R Knee Extension: 0 Degrees R Knee Flexion: 122 Degrees LE PROM R Knee Extension: 1 Degrees R Knee Flexion: 126 Degrees (AAROM w/ Strap.) LE Strength R LE Strength: Grossly 5/5 L LE Strength: Grossly 5/5 R Knee Extension (L3): 5/5 R Knee Flexion: 5/5 L Knee Extension (L3): 5/5 L Knee Flexion: 5/5 Gait Gait Observation: Slight limp on the R causing mild trunk lean. Well improved AND should continue to improve. Patient aware of deficits and how to correct. TREATMENT: Therapeutic Exercise: 1: R Heel slides on table with strap: 1x20. 2: R Heel Slides AROM: 1x20. 3: R Wall Slide/Squats: 1x5. 4: *Objective Measures Taken. 5: *Reconciled HEP; discussed parameters and how to create a unique plan that fits her lifestyle for continued adherance and progression of R Knee Improvement. Skilled Intervention: Patient was educated in proper exercise technique and purpose for exercises. Reviewed and educated patient on additions/changes for home exercise program as above (*). Skilled judgment was used in selection of appropriate interventions. Provided written instruction for home exercise program to facilitate proper performance and compliance. Correct performance of therapeutic exercises was facilitated with verbal, visual, and tactile cuing. Patient education as noted. Billing Therapeutic Exercise Treatment Minutes: 29 Skilled Treatment Time Minutes (timed and untimed codes): 29 Total Session Time (minutes): 29 Session Start Time : 1031 Session Stop Time : 1100 Geoffrey Daniel PT [facility] 09-13-2023 Note HNO ID: [id number] Author: GEOFFREY DANIEL PT Service: ? Author Type: Physical Therapist Type: Progress Notes Filed: 09/13/2023 14:24 Note Text: Episode Visit Count: 8 Therapist That Will Accept/Oversee The Plan Of Care: Geoffrey Daniel PT. Start of Care Date: 08/13/23 Onset Date: 07/22/23 Plan of Care Certification Date: 08/13/23 Next Certification Due Date: 09/17/23 Patient Identified by Name and Date of : Yes REHABILITATION AND SPORTS THERAPY PHYSICAL THERAPY TREATMENT NOTE ASSESSMENT: [place] Mosquera tolerated the session with expected muscle soreness and no issues. She demonstrated improvements in R Knee Flexion ROM. The patient will continue to benefit from ongoing skilled physical therapy to progress toward set goals and to continue with post-operative protocol. PLAN FOR NEXT VISIT: D/C per patient declining further intervention. States she is ready for home maitenance. Give more HEP progressions. SUBJECTIVE: Patient is doing good today, no issues. Arrives to PT without cane today. Pain: Pain Pain Level: 1 Pain Location: Knee - Right Description: Aching Post Treatment Pain Post Treatment Pain Level: No Change Post Treatment Pain Location: Knee - Right OBJECTIVE MEASURES WITH LEVEL OF FUNCTION: LE AROM R Knee Flexion: 120 Degrees LE PROM R Knee Flexion: 126 Degrees (AAROM w/ Strap.) TREATMENT: Therapeutic Exercise: 1: Sci-Fit: 6 Minutes. (Direct 1:1 throughout; subjective taken.) 2: R Knee Flexion on Stairs: 1x15 5-sec. 3: R Heel slides on table with strap: 1x20. 4: R Heel Slides AROM: 1x20. 5: Bridges: 2x10. 6: STS: 10#KB: 2x10. 7: HS Curl: 2x10, 40#. 8: R SL HS Curl: 310, 20#. Skilled Intervention: Patient was educated in proper exercise technique and purpose for exercises. Skilled judgment was used in selection of appropriate interventions. Correct performance of therapeutic exercises was facilitated with verbal, visual, and tactile cuing. Billing Therapeutic Exercise Treatment Minutes: 39 Skilled Treatment Time Minutes (timed and untimed codes): 39 Total Session Time (minutes): 39 Session Start Time : 1345 Session Stop Time : 1424 Geoffrey Daniel, RICHY [facility] 09-13-2023 History of Present illness Narrative Episode Visit Count: 8 Therapist That Will Accept/Oversee The Plan Of Care: Geoffrey Daniel PT. Start of Care Date: 08/13/23 Onset Date: 07/22/23 Plan of Care Certification Date: 08/13/23 Next Certification Due Date: 09/17/23 Patient Identified by Name and Date of : Yes REHABILITATION AND SPORTS THERAPY PHYSICAL THERAPY TREATMENT NOTE ASSESSMENT: [place] Mosquera tolerated the session with expected muscle soreness and no issues. She demonstrated improvements in R Knee Flexion ROM. The patient will continue to benefit from ongoing skilled physical therapy to progress toward set goals and to continue with post-operative protocol. PLAN FOR NEXT VISIT: D/C per patient declining further intervention. [facility] Give more HEP progressions. SUBJECTIVE: Patient is doing good today, no issues. Arrives to PT without cane today. Pain: Pain Pain Level: 1 Pain Location: Knee - Right Description: Aching Post Treatment Pain Post Treatment Pain Level: No Change Post Treatment Pain Location: Knee - Right OBJECTIVE MEASURES WITH LEVEL OF FUNCTION: LE AROM R Knee Flexion: 120 Degrees LE PROM R Knee Flexion: 126 Degrees (AAROM w/ Strap.) TREATMENT: Therapeutic Exercise: 1: Sci-Fit: 6 Minutes. (Direct 1:1 throughout; subjective taken.) 2: R Knee Flexion on Stairs: 1x15 5-sec. 3: R Heel slides on table with strap: 1x20. 4: R Heel Slides AROM: 1x20. 5: Bridges: 2x10. 6: STS: 10#KB: 2x10. 7: HS Curl: 2x10, 40#. 8: R SL HS Curl: 310, 20#. Skilled Intervention: Patient was educated in proper exercise technique and purpose for exercises. Skilled judgment was used in selection of appropriate interventions. Correct performance of therapeutic exercises was facilitated with verbal, visual, and tactile cuing. Billing Therapeutic Exercise Treatment Minutes: 39 Skilled Treatment Time Minutes (timed and untimed codes): 39 Total Session Time (minutes): 39 Session Start Time : 1345 Session Stop Time : 1424 Geoffrey Daniel PT documented in this encounter [facility] 09-05-2023 Note HNO ID: [id number] Author: GEOFFREY DANIEL PT Service: ? Author Type: Physical Therapist Type: Progress Notes Filed: 09/05/2023 16:08 Note Text: Episode Visit Count: 7 Therapist That Will Accept/Oversee The Plan Of Care: Geoffrey Daniel PT. Start of Care Date: 08/13/23 Onset Date: 07/22/23 Plan of Care Certification Date: 08/13/23 Next Certification Due Date: 09/17/23 Patient Identified by Name and Date of : Yes REHABILITATION AND SPORTS THERAPY PHYSICAL THERAPY TREATMENT NOTE ASSESSMENT: [place] Mosquera tolerated the session with no issues. She demonstrated improvements in R Knee Flexion AROM and AAROM. The patient will continue to benefit from ongoing skilled physical therapy to progress toward set goals and to continue with post-operative protocol. PLAN FOR NEXT VISIT: Continue progressing strength and quad control as able. SUBJECTIVE: Patient in a better spirits today; grateful to be coming 1x per week. Pain: Pain Pain Level: 1 Pain Location: Knee - Right Description: Aching Post Treatment Pain Post Treatment Pain Level: No Change Post Treatment Pain Location: Knee - Right OBJECTIVE MEASURES WITH LEVEL OF FUNCTION: Light R Quad Lag with SLR LE AROM R Knee Flexion: 117 Degrees LE PROM R Knee Flexion: 122 Degrees (w/ strap.) TREATMENT: Therapeutic Exercise: 1: Sci-Fit: 6 Minutes. (Working on knee ROM and one on one time spent) 2: R Heel slides on table with strap: 1x15. 3: R Heel Slides AROM: 1x15. 4: R HS Set: 1x10, 5 hold. 5: Supine R SLR: 2#, 2x6. 6: R Hip Flexor Lift Offs: 2x8, 10 step. 7: Deficit Calf Raises: 2x12, 4 box. 8: Wall Lean Toe Raises: 2x10 9: R Knee Flexion on Stairs: 1x10, 5-sec. Skilled Intervention: Patient was educated in proper exercise technique and purpose for exercises. Skilled judgment was used in selection of appropriate interventions. Correct performance of therapeutic exercises was facilitated with verbal, visual, and tactile cuing. Billing Therapeutic Exercise Treatment Minutes: 41 Skilled Treatment Time Minutes (timed and untimed codes): 41 Total Session Time (minutes): 41 Session Start Time : 1515 Session Stop Time : 1556 Geoffrey Daniel PT [facility] 09-05-2023 History of Present illness Narrative Episode Visit Count: 7 Therapist That Will Accept/Oversee The Plan Of Care: Geoffrey Daniel PT. Start of Care Date: 08/13/23 Onset Date: 07/22/23 Plan of Care Certification Date: 08/13/23 Next Certification Due Date: 09/17/23 Patient Identified by Name and Date of : Yes REHABILITATION AND SPORTS THERAPY PHYSICAL THERAPY TREATMENT NOTE ASSESSMENT: [place] Mosquera tolerated the session with no issues. She demonstrated improvements in R Knee Flexion AROM and AAROM. The patient will continue to benefit from ongoing skilled physical therapy to progress toward set goals and to continue with post-operative protocol. PLAN FOR NEXT VISIT: Continue progressing strength and quad control as able. SUBJECTIVE: Patient in a better spirits today; grateful to be coming 1x per week. Pain: Pain Pain Level: 1 Pain Location: Knee - Right Description: Aching Post Treatment Pain Post Treatment Pain Level: No Change Post Treatment Pain Location: Knee - Right OBJECTIVE MEASURES WITH LEVEL OF FUNCTION: Light R Quad Lag with SLR LE AROM R Knee Flexion: 117 Degrees LE PROM R Knee Flexion: 122 Degrees (w/ strap.) TREATMENT: Therapeutic Exercise: 1: Sci-Fit: 6 Minutes. (Working on knee ROM and one on one time spent) 2: R Heel slides on table with strap: 1x15. 3: R Heel Slides AROM: 1x15. 4: R HS Set: 1x10, 5 hold. 5: Supine R SLR: 2#, 2x6. 6: R Hip Flexor Lift Offs: 2x8, 10 step. 7: Deficit Calf Raises: 2x12, 4 box. 8: Wall Lean Toe Raises: 2x10 9: R Knee Flexion on Stairs: 1x10, 5-sec. Skilled Intervention: Patient was educated in proper exercise technique and purpose for exercises. Skilled judgment was used in selection of appropriate interventions. Correct performance of therapeutic exercises was facilitated with verbal, visual, and tactile cuing. Billing Therapeutic Exercise Treatment Minutes: 41 Skilled Treatment Time Minutes (timed and untimed codes): 41 Total Session Time (minutes): 41 Session Start Time : 1515 Session Stop Time : 1556 Geoffrey Daniel PT documented in this encounter [facility] 08-30-2023 History of Present illness Narrative Program_ID:[id number] Access Code: [email or web address] URL: [email or web address] Date: 08-30-2023 Prepared By: Geoffrey Daniel Program Notes Total Knee Replacement - Day 1 OP PT. Exercises - Supine Heel Slide with Strap - 2 x daily - 7 x weekly - 2-3 sets - 10-20 reps - Knee Flexion Step - 2 x daily - 7 x weekly - 2 sets - 10 reps - Active Straight Leg Raise with Quad Set - 2 x daily - 5-6 x weekly - 2 sets - 8-10 reps - Seated Long Arc Quad - 2 x daily - 5-6 x weekly - 2 sets - 10-15 reps - Standing Hip Abduction with Counter Support - 2 x daily - 5-6 x weekly - 2-3 sets - 8-12 reps - Standing Knee Flexion with Unilateral Counter Support - 2 x daily - 5-6 x weekly - 2 sets - 10 reps - Heel Raises with Counter Support - 2 x daily - 5-6 x weekly - 2 sets - 10-15 reps - Sit to Stand - 2 x daily - 5-6 x weekly - 2 sets - 8-10 reps Episode Visit Count: 6 Therapist That Will Accept/Oversee The Plan Of Care: Geoffrey Daniel PT. Start of Care Date: 08/13/23 Onset Date: 07/22/23 Plan of Care Certification Date: 08/13/23 Next Certification Due Date: 09/17/23 Patient Identified by Name and Date of : Yes REHABILITATION AND SPORTS THERAPY PHYSICAL THERAPY TREATMENT NOTE ASSESSMENT: [place] Mosquera tolerated the session with expected muscle soreness. She had great appreciation with the reconciled HEP and changing the POC to 1x/week so she can assist at home more. The patient will continue to benefit from ongoing skilled physical therapy to progress toward set goals and to continue with post-operative protocol. PLAN FOR NEXT VISIT: RLE Strength progressions as able; work on eccentric control; manual PRN. SUBJECTIVE: Patient in a little more pain today; states taking Tylenol & Mobec recently; patient getting outside help to help/lift some of the caregiver burden off her. Pain: Pain Pain Level: 4 Pain Location: Knee - Right Description: Aching Post Treatment Pain Post Treatment Pain Level: Better Post Treatment Pain Location: Knee - Right Post Treatment Pain Description: Sore OBJECTIVE MEASURES WITH LEVEL OF FUNCTION: LE AROM R Knee Flexion: 116 Degrees LE PROM R Knee Flexion: 121 Degrees (W/ Strap.) TREATMENT: Therapeutic Exercise: 1: Sci-Fit: 5 Minutes. (Working on knee ROM and one on one time spent) 2: R Knee Flexion on Stairs: 1x10, 5-sec. 3: R Heel slides on table with strap: 1 x 10 4: R Heel Slides AROM: 1x10. 5: R SLR: 1x10. 6: R LAQ: 1x10. 7: R HS Curl in Standinx10. 8: R DBL Calf Raises: 1x10. 9: R Hip ABD and Flexion in Standinx10 ea. 10: *Reconciled HEP to the above; new printouts given to patient, explained and written on for proper adherance. 11: *Discussion/counseled patient regarding reducing skilled PT to 1x/per week. Discussed her progress so far with PT and that with her motion she is appropriate for 1x/per week so she can assist more at home with and not worry about being away; discussed caregiver dependance and how the emotional/mental aspects of her life can interfere with physical healing and progression. PT and patient rearranged patients visit to help ease her load at home. Skilled Intervention: Patient was educated in proper exercise technique and purpose for exercises. Reviewed and educated patient on additions/changes for home exercise program as above (*). Skilled judgment was used in selection of appropriate interventions. Provided written instruction for home exercise program to facilitate proper performance and compliance. Correct performance of therapeutic exercises was facilitated with verbal, visual, and tactile cuing. Patient education as noted. Billing Therapeutic Exercise Treatment Minutes: 46 Skilled Treatment Time Minutes (timed and untimed codes): 46 Total Session Time (minutes): 46 Session Start Time : 828 Session Stop Time : 914 Geoffrey Daniel PT documented in this encounter [facility] 08-30-2023 Note HNO ID: [id number] Author: GEOFFREY DANIEL PT Service: ? Author Type: Physical Therapist Type: Progress Notes Filed: 08/30/2023 09:37 Note Text: Episode Visit Count: 6 Therapist That Will Accept/Oversee The Plan Of Care: Geoffrey Daniel PT. Start of Care Date: 08/13/23 Onset Date: 07/22/23 Plan of Care Certification Date: 08/13/23 Next Certification Due Date: 09/17/23 Patient Identified by Name and Date of : Yes REHABILITATION AND SPORTS THERAPY PHYSICAL THERAPY TREATMENT NOTE ASSESSMENT: [place] Mosquera tolerated the session with expected muscle soreness. She had great appreciation with the reconciled HEP and changing the POC to 1x/week so she can assist at home more. The patient will continue to benefit from ongoing skilled physical therapy to progress toward set goals and to continue with post-operative protocol. PLAN FOR NEXT VISIT: RLE Strength progressions as able; work on eccentric control; manual PRN. SUBJECTIVE: Patient in a little more pain today; states taking Tylenol AND Mobec recently; patient getting outside help to help/lift some of the caregiver burden off her. Pain: Pain Pain Level: 4 Pain Location: Knee - Right Description: Aching Post Treatment Pain Post Treatment Pain Level: Better Post Treatment Pain Location: Knee - Right Post Treatment Pain Description: Sore OBJECTIVE MEASURES WITH LEVEL OF FUNCTION: LE AROM R Knee Flexion: 116 Degrees LE PROM R Knee Flexion: 121 Degrees (W/ Strap.) TREATMENT: Therapeutic Exercise: 1: Sci-Fit: 5 Minutes. (Working on knee ROM and one on one time spent) 2: R Knee Flexion on Stairs: 1x10, 5-sec. 3: R Heel slides on table with strap: 1 x 10 4: R Heel Slides AROM: 1x10. 5: R SLR: 1x10. 6: R LAQ: 1x10. 7: R HS Curl in Standinx10. 8: R DBL Calf Raises: 1x10. 9: R Hip ABD and Flexion in Standinx10 ea. 10: *Reconciled HEP to the above; new printouts given to patient, explained and written on for proper adherance. 11: *Discussion/counseled patient regarding reducing skilled PT to 1x/per week. Discussed her progress so far with PT and that with her motion she is appropriate for 1x/per week so she can assist more at home with and not worry about being away; discussed caregiver dependance and how the emotional/mental aspects of her life can interfere with physical healing and progression. PT and patient rearranged patients visit to help ease her load at home. Skilled Intervention: Patient was educated in proper exercise technique and purpose for exercises. Reviewed and educated patient on additions/changes for home exercise program as above (*). Skilled judgment was used in selection of appropriate interventions. Provided written instruction for home exercise program to facilitate proper performance and compliance. Correct performance of therapeutic exercises was facilitated with verbal, visual, and tactile cuing. Patient education as noted. Billing Therapeutic Exercise Treatment Minutes: 46 Skilled Treatment Time Minutes (timed and untimed codes): 46 Total Session Time (minutes): 46 Session Start Time : 828 Session Stop Time : 914 Geoffrey Daniel PT [facility] 08-28-2023 Note HNO ID: [id number] Author: GEOFFREY DANIEL PT Service: ? Author Type: Physical Therapist Type: Progress Notes Filed: 08/28/2023 10:28 Note Text: Episode Visit Count: 5 Therapist That Will Accept/Oversee The Plan Of Care: Geoffrey Daniel PT. Start of Care Date: 08/13/23 Onset Date: 07/22/23 Plan of Care Certification Date: 08/13/23 Next Certification Due Date: 09/17/23 Patient Identified by Name and Date of : Yes REHABILITATION AND SPORTS THERAPY PHYSICAL THERAPY TREATMENT NOTE ASSESSMENT: [place] Mosquera tolerated the session with expected muscle soreness. She demonstrated increased R quad lag this date. The patient will continue to benefit from ongoing skilled physical therapy to progress toward set goals and to continue with post-operative protocol. PLAN FOR NEXT VISIT: Knee AND Hip Strength progressions and Knee ROM. SUBJECTIVE: Patient doing alright today. Her fell yesterday and she had to call EMS to assist. Slight increase in achiness today. Pain: Pain Pain Level: 3 Pain Location: Knee - Right Description: Aching Post Treatment Pain Post Treatment Pain Level: Better Post Treatment Pain Location: Knee - Right Post Treatment Pain Description: Sore OBJECTIVE MEASURES WITH LEVEL OF FUNCTION: LE PROM R Knee Flexion: 120 Degrees (AAROM w/ strap.) TREATMENT: Therapeutic Exercise: 1: Sci-Fit: 6 Minutes. (Working on knee ROM and one on one time spent) 2: R Knee Flexion on Stairs: 2x12, 5-sec each. 3: 6 R Fwd step-up: 2 x 10 4: 6 R Lateral step-up: 2 x 10 5: R Hamstring Stretch: 2x30 . 6: R Calf on Prostretch: 2x30 . 7: Supine R SLR: 1x10 1#, 1x10 no weight. 8: R HS Curl in Standinx10. 9: Heel slides on table with strap 2 x 10 Skilled Intervention: Patient was educated in proper exercise technique and purpose for exercises. Skilled judgment was used in selection of appropriate interventions. Correct performance of therapeutic exercises was facilitated with verbal, visual, and tactile cuing. Billing Therapeutic Exercise Treatment Minutes: 39 Skilled Treatment Time Minutes (timed and untimed codes): 39 Total Session Time (minutes): 39 Session Start Time : 45 Session Stop Time : 1024 Geoffrey Daniel, PT [facility] 08-28-2023 History of Present illness Narrative Episode Visit Count: 5 Therapist That Will Accept/Oversee The Plan Of Care: Geoffrey Daniel PT. Start of Care Date: 08/13/23 Onset Date: 07/22/23 Plan of Care Certification Date: 08/13/23 Next Certification Due Date: 09/17/23 Patient Identified by Name and Date of : Yes REHABILITATION AND SPORTS THERAPY PHYSICAL THERAPY TREATMENT NOTE ASSESSMENT: [place] Mosquera tolerated the session with expected muscle soreness. She demonstrated increased R quad lag this date. The patient will continue to benefit from ongoing skilled physical therapy to progress toward set goals and to continue with post-operative protocol. PLAN FOR NEXT VISIT: Knee & Hip Strength progressions and Knee ROM. SUBJECTIVE: Patient doing alright today. Her fell yesterday and she had to call EMS to assist. Slight increase in achiness today. Pain: Pain Pain Level: 3 Pain Location: Knee - Right Description: Aching Post Treatment Pain Post Treatment Pain Level: Better Post Treatment Pain Location: Knee - Right Post Treatment Pain Description: Sore OBJECTIVE MEASURES WITH LEVEL OF FUNCTION: LE PROM R Knee Flexion: 120 Degrees (AAROM w/ strap.) TREATMENT: Therapeutic Exercise: 1: Sci-Fit: 6 Minutes. (Working on knee ROM and one on one time spent) 2: R Knee Flexion on Stairs: 2x12, 5-sec each. 3: 6 R Fwd step-up: 2 x 10 4: 6 R Lateral step-up: 2 x 10 5: R Hamstring Stretch: 2x30 . 6: R Calf on Prostretch: 2x30 . 7: Supine R SLR: 1x10 1#, 1x10 no weight. 8: R HS Curl in Standinx10. 9: Heel slides on table with strap 2 x 10 Skilled Intervention: Patient was educated in proper exercise technique and purpose for exercises. Skilled judgment was used in selection of appropriate interventions. Correct performance of therapeutic exercises was facilitated with verbal, visual, and tactile cuing. Billing Therapeutic Exercise Treatment Minutes: 39 Skilled Treatment Time Minutes (timed and untimed codes): 39 Total Session Time (minutes): 39 Session Start Time : 45 Session Stop Time : 1023 Geoffrey Daniel PT documented in this encounter [facility] 08-23-2023 Note HNO ID: [id number] Author: WILLY PRIDE PT Service: ? Author Type: Physical Therapist Type: Progress Notes Filed: 08/23/2023 09:28 Note Text: Episode Visit Count: 4 Therapist That Will Accept/Oversee The Plan Of Care: Geoffrey Daniel PT. Start of Care Date: 08/13/23 Onset Date: 07/22/23 Plan of Care Certification Date: 08/13/23 Next Certification Due Date: 09/17/23 Patient Identified by Name and Date of : Yes REHABILITATION AND SPORTS THERAPY PHYSICAL THERAPY TREATMENT NOTE ASSESSMENT: [place] Mosquera tolerated the session with expected muscle soreness. She demonstrated good form with mini squats. The patient will continue to benefit from ongoing skilled physical therapy to progress toward set goals. PLAN FOR NEXT VISIT: Continue working on Knee strengthening and ROM SUBJECTIVE: Doing alright. Working on the exercises regularly. Walks with the cane when in unfamiliar areas. Pain: Pain Pain Level: (Not rated) Pain Location: Knee - Right Post Treatment Pain Post Treatment Pain Location: Knee - Right Post Treatment Pain Description: Sore OBJECTIVE MEASURES WITH LEVEL OF FUNCTION: LE PROM R Knee Flexion: 118 Degrees (with strap) TREATMENT: Therapeutic Exercise: 1: Sci-Fit: 5 Minutes. (Working on knee ROM and one on one time spent) 2: Knee flexion on stairs x 20 holding 5 sec each 3: Mini squat 2 x 10 4: 6 F step-up 2 x 10 5: 6 F step overs x 5 6: Heel slides on table with strap 2 x 10 7: Supine SLR 1# x 9 then no weight x 10 Skilled Intervention: Patient was educated in proper exercise technique and purpose for exercises. Provided written instruction for home exercise program to facilitate proper performance and compliance. Correct performance of therapeutic exercises was facilitated with verbal and visual cuing. Billing Therapeutic Exercise Treatment Minutes: 40 Skilled Treatment Time Minutes (timed and untimed codes): 40 Total Session Time (minutes): 40 Session Start Time : 844 Session Stop Time : 924 Willy Pride PT [facility] 08-23-2023 History of Present illness Narrative Episode Visit Count: 4 Therapist That Will Accept/Oversee The Plan Of Care: Geoffrey Daniel PT. Start of Care Date: 08/13/23 Onset Date: 07/22/23 Plan of Care Certification Date: 08/13/23 Next Certification Due Date: 09/17/23 Patient Identified by Name and Date of : Yes REHABILITATION AND SPORTS THERAPY PHYSICAL THERAPY TREATMENT NOTE ASSESSMENT: [place] Mosquera tolerated the session with expected muscle soreness. She demonstrated good form with mini squats. The patient will continue to benefit from ongoing skilled physical therapy to progress toward set goals. PLAN FOR NEXT VISIT: Continue working on Knee strengthening and ROM SUBJECTIVE: Doing alright. Working on the exercises regularly. Walks with the cane when in unfamiliar areas. Pain: Pain Pain Level: (Not rated) Pain Location: Knee - Right Post Treatment Pain Post Treatment Pain Location: Knee - Right Post Treatment Pain Description: Sore OBJECTIVE MEASURES WITH LEVEL OF FUNCTION: LE PROM R Knee Flexion: 118 Degrees (with strap) TREATMENT: Therapeutic Exercise: 1: Sci-Fit: 5 Minutes. (Working on knee ROM and one on one time spent) 2: Knee flexion on stairs x 20 holding 5 sec each 3: Mini squat 2 x 10 4: 6 F step-up 2 x 10 5: 6 F step overs x 5 6: Heel slides on table with strap 2 x 10 7: Supine SLR 1# x 9 then no weight x 10 Skilled Intervention: Patient was educated in proper exercise technique and purpose for exercises. Provided written instruction for home exercise program to facilitate proper performance and compliance. Correct performance of therapeutic exercises was facilitated with verbal and visual cuing. Billing Therapeutic Exercise Treatment Minutes: 40 Skilled Treatment Time Minutes (timed and untimed codes): 40 Total Session Time (minutes): 40 Session Start Time : 45 Session Stop Time : 924 Willy Pride PT documented in this encounter [facility] 08-21-2023 Note HNO ID: [id number] Author: GEOFFREY DANIEL PT Service: ? Author Type: Physical Therapist Type: Progress Notes Filed: 08/21/2023 12:21 Note Text: Episode Visit Count: 3 Therapist That Will Accept/Oversee The Plan Of Care: Geoffrey Daniel PT. Start of Care Date: 08/13/23 Onset Date: 07/22/23 Plan of Care Certification Date: 08/13/23 Next Certification Due Date: 09/17/23 Patient Identified by Name and Date of : Yes REHABILITATION AND SPORTS THERAPY PHYSICAL THERAPY TREATMENT NOTE ASSESSMENT: [place] Mosquera tolerated the session with expected muscle soreness. She demonstrated improvements in R Knee Flexion ROM. The patient will continue to benefit from ongoing skilled physical therapy to progress toward set goals and to continue with post-operative protocol. PLAN FOR NEXT VISIT: Progress ther-ex as able; work on [id number]/squats, increase step height. SUBJECTIVE: Patient reports pain following last visit in the evening and Saturday; reports a sharp ache in the R Knee that lasted 1.5 days continuous; felt good on Saturday and has been good since. Pain: Pain Pain Level: 1 Pain Location: Knee - Right Description: Sore Post Treatment Pain Post Treatment Pain Location: Knee - Right Post Treatment Pain Description: Sore OBJECTIVE MEASURES WITH LEVEL OF FUNCTION: LE PROM R Knee Extension: -1 Degrees R Knee Flexion: 118 Degrees (W/ Strap AAROM.) TREATMENT: Therapeutic Exercise: 1: Sci-Fit: 6 Minutes. (Subjective and direct 1:1 taken.) 2: Supine R Heel Slides: 2x10, 1-2sec holds. 3: SAQ: 2x10, 2#cuff. 4: R SLR: 2x10. 5: R LAQ: 2x8, 1#cuff 6: R FWD Step Ups: 2x10, 4-inch. 7: R Lateral Step Ups: 2x10, 4-inch. Skilled Intervention: Patient was educated in proper exercise technique and purpose for exercises. Skilled judgment was used in selection of appropriate interventions. Correct performance of therapeutic exercises was facilitated with verbal, visual, and tactile cuing. Manual Therapy: 1: Manual knee flexion PROM overpressure in sittinx10 w/ 3 sec hold. 2: Seated R Anterior AND Posterior Tibial Translations to patient tolerance. (Used to promote knee flexion/extension) Skilled Intervention: Manual skills to improve joint mobility, ROM, and decrease pain. Utilized anatomy knowledge of the therapist, and assessment of patient's response to intervention. Billing Therapeutic Exercise Treatment Minutes: 32 Manual TherapyTreatment Minutes: 8 Skilled Treatment Time Minutes (timed and untimed codes): 40 Total Session Time (minutes): 40 Session Start Time : 1118 Session Stop Time : 1158 Geoffrey Daniel, PT [facility] 08-21-2023 History of Present illness Narrative Episode Visit Count: 3 Therapist That Will Accept/Oversee The Plan Of Care: Geoffrey Daniel PT. Start of Care Date: 08/13/23 Onset Date: 07/22/23 Plan of Care Certification Date: 08/13/23 Next Certification Due Date: 09/17/23 Patient Identified by Name and Date of : Yes REHABILITATION AND SPORTS THERAPY PHYSICAL THERAPY TREATMENT NOTE ASSESSMENT: [place] Mosquera tolerated the session with expected muscle soreness. She demonstrated improvements in R Knee Flexion ROM. The patient will continue to benefit from ongoing skilled physical therapy to progress toward set goals and to continue with post-operative protocol. PLAN FOR NEXT VISIT: Progress ther-ex as able; work on [id number]-wx-ogkypd/squats, increase step height. SUBJECTIVE: Patient reports pain following last visit in the evening and Saturday; reports a sharp ache in the R Knee that lasted 1.5 days continuous; felt good on Saturday and has been good since. Pain: Pain Pain Level: 1 Pain Location: Knee - Right Description: Sore Post Treatment Pain Post Treatment Pain Location: Knee - Right Post Treatment Pain Description: Sore OBJECTIVE MEASURES WITH LEVEL OF FUNCTION: LE PROM R Knee Extension: -1 Degrees R Knee Flexion: 118 Degrees (W/ Strap AAROM.) TREATMENT: Therapeutic Exercise: 1: Sci-Fit: 6 Minutes. (Subjective and direct 1:1 taken.) 2: Supine R Heel Slides: 2x10, 1-2sec holds. 3: SAQ: 2x10, 2#cuff. 4: R SLR: 2x10. 5: R LAQ: 2x8, 1#cuff 6: R FWD Step Ups: 2x10, 4-inch. 7: R Lateral Step Ups: 2x10, 4-inch. Skilled Intervention: Patient was educated in proper exercise technique and purpose for exercises. Skilled judgment was used in selection of appropriate interventions. Correct performance of therapeutic exercises was facilitated with verbal, visual, and tactile cuing. Manual Therapy: 1: Manual knee flexion PROM overpressure in sittinx10 w/ 3 sec hold. 2: Seated R Anterior & Posterior Tibial Translations to patient tolerance. (Used to promote knee flexion/extension) Skilled Intervention: Manual skills to improve joint mobility, ROM, and decrease pain. Utilized anatomy knowledge of the therapist, and assessment of patient's response to intervention. Billing Therapeutic Exercise Treatment Minutes: 32 Manual TherapyTreatment Minutes: 8 Skilled Treatment Time Minutes (timed and untimed codes): 40 Total Session Time (minutes): 40 Session Start Time : 1118 Session Stop Time : 1158 Geoffrey Daniel PT documented in this encounter [facility] 08-16-2023 Note HNO ID: [id number] Author: GEOFFREY DANIEL PT Service: ? Author Type: Physical Therapist Type: Progress Notes Filed: 08/16/2023 14:10 Note Text: Episode Visit Count: 2 Therapist That Will Accept/Oversee The Plan Of Care: Geoffrey Daniel PT. Start of Care Date: 08/13/23 Onset Date: 07/22/23 Plan of Care Certification Date: 08/13/23 Next Certification Due Date: 09/17/23 Patient Identified by Name and Date of : Yes REHABILITATION AND SPORTS THERAPY PHYSICAL THERAPY TREATMENT NOTE ASSESSMENT: [place] Mosquera tolerated the session with expected muscle soreness. She demonstrated difficulty with [id number] and improvements in R Knee ROM. The patient will continue to benefit from ongoing skilled physical therapy to progress toward set goals and to continue with post-operative protocol. PLAN FOR NEXT VISIT: Add in step-ups; manual knee flexion and extension; progress ther-ex as able. SUBJECTIVE: Patient reports stiff and achy Knee today; has been going with the tylenol; a little sore following last visit, needed ice. Pain: Pain Pain Level: 2 Pain Location: Knee - Right Description: Aching, Sore Post Treatment Pain Post Treatment Pain Location: Knee - Right Post Treatment Pain Description: Sore OBJECTIVE MEASURES WITH LEVEL OF FUNCTION: LE AROM R Knee Extension: -3 Degrees LE PROM R Knee Extension: -1 Degrees R Knee Flexion: 112 Degrees (w/ strap aarom.) TREATMENT: Therapeutic Exercise: 1: Sci-Fit: 5 Minutes. (Subjective and direct 1:1 taken.) 2: Supine R Heel Slides: 2x15, 5-sec holds. 3: [place] Assisted Supine Knee Ext Hold: 2# weight 3min 4: SAQ: 2x10, 2#cuff. 5: R SLR: 2x10. 6: R LAQ: 1x10. 7: STS: 1x8: VCs for equal weight distribution. Skilled Intervention: Patient was educated in proper exercise technique and purpose for exercises. Reviewed and educated patient on additions/changes for home exercise program as above (*). Skilled judgment was used in selection of appropriate interventions. Provided written instruction for home exercise program to facilitate proper performance and compliance. Correct performance of therapeutic exercises was facilitated with verbal, visual, and tactile cuing. Manual Therapy: 1: R Knee Flexion PROM with patient in semi-reclined position w/ PTs arm laced through legs as a lever: 1x15, 5 hold. 2: R Knee Flexion PROM STRETCH with patient in semi-reclined position w/ PTs arm laced through legs as a lever: 3x1Min. 3: PROM for R Knee Ext w/ prop under ankle: 1x15, 3-5 sec holds. (W/ Femoral IR AND Tibial ER overpressure.) Skilled Intervention: Manual skills to improve joint mobility, ROM, and decrease pain. Utilized anatomy knowledge of the therapist, and assessment of patient's response to intervention. Gait Trainin: Single point cane selection, sizing and use. Patient had cane handle higher than needed for prior use; educated pt. that the cane should be sized where it touches the middle crease of the user?s wrist. Patient reports gait feels more normal with this adjustment. Skilled Intervention: Skilled judgment used to assess selection, proper sizing, and proper use of assistive device. Billing Therapeutic Exercise Treatment Minutes: 33 Manual TherapyTreatment Minutes: 12 Gait Training Treatment Minutes: 3 Skilled Treatment Time Minutes (timed and untimed codes): 48 Total Session Time (minutes): 48 Session Start Time : 1300 Session Stop Time : 1348 Geoffrey Daniel PT, DPT. [facility] 08-16-2023 History of Present illness Narrative Episode Visit Count: 2 Therapist That Will Accept/Oversee The Plan Of Care: Geoffrey Daniel PT. Start of Care Date: 08/13/23 Onset Date: 07/22/23 Plan of Care Certification Date: 08/13/23 Next Certification Due Date: 09/17/23 Patient Identified by Name and Date of : Yes REHABILITATION AND SPORTS THERAPY PHYSICAL THERAPY TREATMENT NOTE ASSESSMENT: [place] Mosquera tolerated the session with expected muscle soreness. She demonstrated difficulty with mxv-cs-znliqo and improvements in R Knee ROM. The patient will continue to benefit from ongoing skilled physical therapy to progress toward set goals and to continue with post-operative protocol. PLAN FOR NEXT VISIT: Add in step-ups; manual knee flexion and extension; progress ther-ex as able. SUBJECTIVE: Patient reports stiff and achy Knee today; has been going with the tylenol; a little sore following last visit, needed ice. Pain: Pain Pain Level: 2 Pain Location: Knee - Right Description: Aching, Sore Post Treatment Pain Post Treatment Pain Location: Knee - Right Post Treatment Pain Description: Sore OBJECTIVE MEASURES WITH LEVEL OF FUNCTION: LE AROM R Knee Extension: -3 Degrees LE PROM R Knee Extension: -1 Degrees R Knee Flexion: 112 Degrees (w/ strap aarom.) TREATMENT: Therapeutic Exercise: 1: Sci-Fit: 5 Minutes. (Subjective and direct 1:1 taken.) 2: Supine R Heel Slides: 2x15, 5-sec holds. 3: [place] Assisted Supine Knee Ext Hold: 2# weight 3min 4: SAQ: 2x10, 2#cuff. 5: R SLR: 2x10. 6: R LAQ: 1x10. 7: STS: 1x8: VCs for equal weight distribution. Skilled Intervention: Patient was educated in proper exercise technique and purpose for exercises. Reviewed and educated patient on additions/changes for home exercise program as above (*). Skilled judgment was used in selection of appropriate interventions. Provided written instruction for home exercise program to facilitate proper performance and compliance. Correct performance of therapeutic exercises was facilitated with verbal, visual, and tactile cuing. Manual Therapy: 1: R Knee Flexion PROM with patient in semi-reclined position w/ PTs arm laced through legs as a lever: 1x15, 5 hold. 2: R Knee Flexion PROM STRETCH with patient in semi-reclined position w/ PTs arm laced through legs as a lever: 3x1Min. 3: PROM for R Knee Ext w/ prop under ankle: 1x15, 3-5 sec holds. (W/ Femoral IR & Tibial ER overpressure.) Skilled Intervention: Manual skills to improve joint mobility, ROM, and decrease pain. Utilized anatomy knowledge of the therapist, and assessment of patient's response to intervention. Gait Trainin: Single point cane selection, sizing and use. Patient had cane handle higher than needed for prior use; educated pt. that the cane should be sized where it touches the middle crease of the user s wrist. Patient reports gait feels more normal with this adjustment. Skilled Intervention: Skilled judgment used to assess selection, proper sizing, and proper use of assistive device. Billing Therapeutic Exercise Treatment Minutes: 33 Manual TherapyTreatment Minutes: 12 Gait Training Treatment Minutes: 3 Skilled Treatment Time Minutes (timed and untimed codes): 48 Total Session Time (minutes): 48 Session Start Time : 1300 Session Stop Time : 1348 Geoffrey Daniel PT, DPT. documented in this encounter [facility] 08-14-2023 Miscellaneous Notes PDMP website checked and validated. All prescriptions have been APPROPRIATELY filled. No suspicious activity was identified. 08/14/2023 by Po Delgadillo APRN.CNP The following approved medication requests have been transmitted electronically. Requested Prescriptions Signed Prescriptions Disp Refills LORazepam (ATIVAN) 0.5 mg 60 tablet 2 Sig: Take 1 tablet by mouth two times a day as needed (anxiety) for up to 90 days. Po Delgadillo APRN.CNP Patient has been identified by name and date of : Yes, Provider Po Delgadillo CNP Date August 12, 2023 Time 8:20 AM Patient mycharts for refill(s): Requested Prescriptions Pending Prescriptions Disp Refills LORazepam (ATIVAN) 0.5 mg 30 tablet 2 Sig: Take 1 tablet by mouth daily at bedtime for 90 days. Date of last office visit in primary care: 11/29/2022 Date of next office visit in primary care: 08/12/2023 Last Rx: 05/09/23 #30 w/2. Pt requesting increase in medication. Currently on pain medication - Tramadol. Please advise. Thank you. Anu Damico MA. documented in this encounter [facility] 08-13-2023 History of Present illness Narrative Program_ID:[id number] Access Code: [email or web address] URL: [email or web address] Date: 08-13-2023 Prepared By: Geoffrey Daniel Program Notes Total Knee Replacement - Day 1 OP PT. Exercises - Long Sitting Quad Set with Towel Roll Under Heel - 2 x daily - 5-6 x weekly - 2-3 sets - 10-20 reps - Supine Heel Slide with Strap - 2 x daily - 7 x weekly - 2-3 sets - 10-20 reps - Seated Passive Knee Extension with Weight - 1-2 x daily - 7 x weekly - 1-2 sets - reps - Active Straight Leg Raise with Quad Set - 2 x daily - 5-6 x weekly - 2-3 sets - 10 reps - Seated Long Arc Quad - 2 x daily - 7 x weekly - 2-3 sets - 10 reps - Standing Hip Abduction with Counter Support - 2 x daily - 5-6 x weekly - 2-3 sets - 8-12 reps Images from the original note were not included. Episode Visit Count: 1 Therapist That Will Accept/Oversee The Plan Of Care: Geoffrey Daniel PT. Start of Care Date: 08/13/23 Onset Date: 07/22/23 Plan of Care Certification Date: 08/13/23 Next Certification Due Date: 09/17/23 Patient Identified by Name and Date of : Yes REHABILITATION AND SPORTS THERAPY PHYSICAL THERAPY EVALUATION PLAN OF CARE: Assessment: [place] Mosquera presents with of 22 day post-status of R TKA with Dr. Jefferson that interferes with rising from a chair, stair negotiation, walking in the community, physical activities, weight bearing (Knee motion.) . She presents with impairments in ADL's, gait, independence in exercise, joint mobility, overall function, patient reported outcome measures, range of motion, soft tissue healing, strength, symptom management, and tissue tenderness. PROMIS (Patient-Reported Outcomes Measurement Information System) scores were reviewed and identified as a rehabilitation concern. Prognosis for therapy is Good due to: current objective clinical presentation, positive past response to therapy, good support system/ coping skills, good overall health status .She will benefit from skilled therapy services to meet the goals established for this plan of care as noted below. Goals for Episode of Care: created on 08/13/23 through 11/05/23 Patient reported outcome of physical function and self-efficacy will increase T-score by a minimum 5 points. [place] in home exercise program. Patient will decrease pain rating by 2 points to meet minimal clinical important difference for numeric pain rating scale. Patient will increase active ROM of R knee to 0-125 degrees to allow the patient to improve walking in the community and stair navigation as well as performance of ADLs/IADLs. Patient will demonstrate increase in RLE strength to 5/5 during manual muscle testing in order to improve function for basic self-care tasks, home management tasks, leisure/recreation skills, and prior functional tasks. Patient will be able to return to normal gait unassisted and without AD. Patient Goals: Full function of her knee and able to walk unassisted. Planned Interventions, Frequency, and Duration: Current Frequency: 2x/week Duration: 8 weeks Total Number of Visits Planned: 16 Planned Treatment Interventions: Therapeutic exercise (48895), Self-longterm management (11336), Patient/Family/Caregiver Education, Neuromuscular re-education (54362), Manual therapy (63756), Therapeutic activities (22296), Gait Training (90056), Body Mechanics Training PLAN FOR NEXT VISIT: Assess how home HEP went; R Knee Ext and Flexion progressions; manual to promote increased knee ext and flexion motion; ther-ex progressions as able. Patient demonstrates good understanding of plan of care and treatment. The above goals and plan of care were discussed and agreed upon by patient/family. SUBJECTIVE: Pt. reports following elective Robotic-assisted R TKA on 07/22/[address] Jefferson. Completed 4 PT visits w/ discharge on 08/09/23. Now reports to outpatient PT. 1st post-op appointment went well, and Dr. Jefferson's team is happy with post-op progress. Was using FWW after surgery, now on SPC, notes starting to wean off within the home. Currently, patients pain is limiting her, taking tylenol. Limitations in walking, squatting, knee motion. Patient Goals: Full function of her knee and able to walk unassisted. Functional Limitations: rising from a chair, stair negotiation, walking in the community, physical activities, weight bearing (Knee motion.) Prior Level of Function: Independent without limitations Relevant History Past Relevant Surgical Conditions: Total Hip Replacement-Right, Total Hip Replacement-Left, Total Knee Replacement-Left Employment: Retired Home Environment Patient Lives With: Spouse Assistance Available: PRN Home Type: Apt/Condo Entry To Home: Elevator Number Of Stairs To Bed/Bath: 0 - apartment Tub/Shower Type: walk in shower with shower chair Laundry: laundry in apartment Equipment Owned: Walker- Wheeled, Shower Chair, Elevated Toilet Seat, Cane Intake Information: Prescription present Previous Treatment: Ice (Tylenol) Falls Interview: No positive findings with falls interview Pain: Pain Pain Level: 3 (Ranges 1-3/10) Pain Location: Knee - Right Description: Dull Post Treatment Pain Post Treatment Pain Level: No Change Post Treatment Pain Location: Knee - Right Post Treatment Pain Description: Sore PROMIS Scales 08/12/2023 05/27/2023 12/06/2022 Higher is Better Phys Func - Score 33 (moderate dysfunction) 41 (mild dysfunction) 43 (mild dysfunction) Phys Func - Percentile 4 18 24 Self-Eff Symptom - Score 42 (Average) 53 (Average) 51 (Average) Self-Eff Symptom - Percentile 21 62 54 T-scores: mean of general population = 50. 5 points is clinically meaningfully difference Percentiles provide an indication of how the patient's score ranks in relation to the general population. Higher percentile rankings indicate better function/quality of life. 50th percentile is the average of the general population and indicates half of respondents had a worse score. OBJECTIVE MEASURES WITH LEVEL OF FUNCTION: Knee Observations R Knee Presents with: Swelling, Incision R Swelling: Light edema. R Incision: Incision well-approximated, no drainage, normal alexandra-incisional erythema R Knee Palpation Tenderness: (General post-surgical gross light tenderness.) Knee Brace: None LE AROM R Knee Extension: -5 Degrees R Knee Flexion: 98 Degrees LE PROM R Knee Extension: -3 Degrees R Knee Flexion: 102 Degrees LE Joint Mobility R Patellar Mobility: WNL L Patellar Mobility: WNL LE Strength R LE Strength: Grossly 4+/5. L LE Strength: Grossly 5/5 Gait Weight Bearing Status: FWB Gait: Independent Gait Device: Cane Gait Deviations: Right Lower Extremity, General Deviations Gait Deviations Right Lower Extremity: Weight bearing decreased, Stance time decreased General Deviations/Observations: Antalgic gait Gait Observation: Slight limp and light Trendelenburg on the R. Education: Education Learning/educational needs: Procedure / Surgery, Safety, Home exercise program, Plan of Care, Gait Training TREATMENT: PT Treatment Interventions: Therapeutic Exercise, Manual Therapy Evaluation Therapeutic Exercise: 1: *Supine R Heel Slides: 1x15, 5-sec holds. 2: *R SLR: 1x10 3: *R LAQ: 1x10. 4: *Standing Concentric R Hip ABD: 1x10. 5: *Longsitting R Quad Set w/ heel prop under ankle: 1x10, 5-sec. 6: *[place] Assisted Supine Knee Ext Hold: 2# weight 3min 7: *Direct education to pt. on reviewing plan of care, prognosis, HEP and importance of exercises in helping patient reach her goals. Education on importance of cane use for safety currently. Education on PTs goals for her and objective measures hopeful to obtain. Discussed red flag DVT sxs and patient understands. Skilled Intervention: Patient was educated in proper exercise technique and purpose for exercises. Reviewed and educated patient on additions/changes for home exercise program as above (*). Skilled judgment was used in selection of appropriate interventions. Provided written instruction for home exercise program to facilitate proper performance and compliance. Correct performance of therapeutic exercises was facilitated with verbal, visual, and tactile cuing. Manual Therapy: 1: Iar-gp-Khqqrss Patella Mobs. 2: PROM for R Knee Ext w/ prop under ankle: 1x15, 3-5 sec holds. 3: PROM for R Knee Flexion: 1x10. Skilled Intervention: Manual skills to improve joint mobility, ROM, and decrease pain. Utilized anatomy knowledge of the therapist, and assessment of patient's response to intervention. Billing * Evaluation Low Complexity: 1 Unit Therapeutic Exercise Treatment Minutes: 15 Manual TherapyTreatment Minutes: 8 Skilled Treatment Time Minutes (timed and untimed codes): 40 Total Session Time (minutes): 40 Session Start Time : 904 Session Stop Time : 944 Geoffrey Daniel PT, DPT. documented in this encounter [facility] 08-13-2023 Note HNO ID: [id number] Author: GEOFFREY DANIEL PT Service: ? Author Type: Physical Therapist Type: Progress Notes Filed: 08/13/2023 13:26 Note Text: Episode Visit Count: 1 Therapist That Will Accept/Oversee The Plan Of Care: Geoffrey Daniel PT. Start of Care Date: 08/13/23 Onset Date: 07/22/23 Plan of Care Certification Date: 08/13/23 Next Certification Due Date: 09/17/23 Patient Identified by Name and Date of : Yes REHABILITATION AND SPORTS THERAPY PHYSICAL THERAPY EVALUATION PLAN OF CARE: Assessment: [place] Mosquera presents with of 22 day post-status of R TKA with Dr. Jefferson that interferes with rising from a chair, stair negotiation, walking in the community, physical activities, weight bearing (Knee motion.) . She presents with impairments in ADL's, gait, independence in exercise, joint mobility, overall function, patient reported outcome measures, range of motion, soft tissue healing, strength, symptom management, and tissue tenderness. PROMIS? (Patient-Reported Outcomes Measurement Information System) scores were reviewed and identified as a rehabilitation concern. Prognosis for therapy is Good due to: current objective clinical presentation, positive past response to therapy, good support system/ coping skills, good overall health status .She will benefit from skilled therapy services to meet the goals established for this plan of care as noted below. Goals for Episode of Care: created on 08/13/23 through 11/05/23 Patient reported outcome of physical function and self-efficacy will increase T-score by a minimum 5 points. [place] in home exercise program. Patient will decrease pain rating by 2 points to meet minimal clinical important difference for numeric pain rating scale. Patient will increase active ROM of R knee to 0-125 degrees to allow the patient to improve walking in the community and stair navigation as well as performance of ADLs/IADLs. Patient will demonstrate increase in RLE strength to 5/5 during manual muscle testing in order to improve function for basic self-care tasks, home management tasks, leisure/recreation skills, and prior functional tasks. Patient will be able to return to normal gait unassisted and without AD. Patient Goals: Full function of her knee and able to walk unassisted. Planned Interventions, Frequency, and Duration: Current Frequency: 2x/week Duration: 8 weeks Total Number of Visits Planned: 16 Planned Treatment Interventions: Therapeutic exercise (35225), Self-longterm management (47730), Patient/Family/Caregiver Education, Neuromuscular re-education (14221), Manual therapy (53891), Therapeutic activities (86654), Gait Training (76495), Body Mechanics Training PLAN FOR NEXT VISIT: Assess how home HEP went; R Knee Ext and Flexion progressions; manual to promote increased knee ext and flexion motion; ther-ex progressions as able. Patient demonstrates good understanding of plan of care and treatment. The above goals and plan of care were discussed and agreed upon by patient/family. SUBJECTIVE: Pt. reports following elective Robotic-assisted R TKA on 07/22/[address] Jefferson. Completed 4 PT visits w/ discharge on 08/09/23. Now reports to outpatient PT. 1st post-op appointment went well, and Dr. Jefferson's team is happy with post-op progress. Was using FWW after surgery, now on SPC, notes starting to wean off within the home. Currently, patients pain is limiting her, taking tylenol. Limitations in walking, squatting, knee motion. Patient Goals: Full function of her knee and able to walk unassisted. Functional Limitations: rising from a chair, stair negotiation, walking in the community, physical activities, weight bearing (Knee motion.) Prior Level of Function: Independent without limitations Relevant History Past Relevant Surgical Conditions: Total Hip Replacement-Right, Total Hip Replacement-Left, Total Knee Replacement-Left Employment: Retired Home Environment Patient Lives With: Spouse Assistance Available: PRN Home Type: Apt/Condo Entry To Home: Elevator Number Of Stairs To Bed/Bath: 0 - apartment Tub/Shower Type: walk in shower with shower chair Laundry: laundry in apartment Equipment Owned: Walker- Wheeled, Shower Chair, Elevated Toilet Seat, Cane Intake Information: Prescription present Previous Treatment: Ice (Tylenol) Falls Interview: No positive findings with falls interview Pain: Pain Pain Level: 3 (Ranges 1-3/10) Pain Location: Knee - Right Description: Dull Post Treatment Pain Post Treatment Pain Level: No Change Post Treatment Pain Location: Knee - Right Post Treatment Pain Description: Sore PROMIS Scales 08/12/2023 05/27/2023 12/06/2022 Higher is Better Phys Func - Score 33 (moderate dysfunction) 41 (mild dysfunction) 43 (mild dysfunction) Phys Func - Percentile 4 18 24 Self-Eff Symptom - Score 42 (Average) 53 (Average) 51 (Average) Self-Eff Symptom - Perce (more content not included)... [facility] 08-06-2023 Note HNO ID: [id number] Author: HIRA RUIZ RN Service: ? Author Type: Registered Nurse Type: Progress Notes Filed: 08/06/2023 15:50 Note Text: Post-op Office Visit [place] Mosquera 83 year old August 06, 2023 3:02 PM Surgery Date: 07/22/23 History: [place] Mosquera Is now 2 weeks out from right TKA. Post-operative course has been without complication. No readmission/complications Subjective: Patient reports 1/10 pain. Overall is doing well. Walker as ambulatory aid Taking opioid pain medication every 6 hours PRN Objective: Ambulates with a walker, may transition to a cane Incision well-approximated, no drainage, normal alexandra-incisional erythema ROM 0 - 90 Distally DP/PT palpable Distally S/S/SP/DP/T intact at baseline Distally DF/EHL/PF intact at baseline Negative destinee/calf tenderness Xrays: Well-positioned total knee replacement in appropriate alignment with no evidence of loosening Assessment and Plan: [place] Mosquera Is here for a first post-op appointment, overall doing well -continued ice, rest, and use of non-narcotic analgesia as needed -wean off ambulatory aids -discussed home exercises and therapy -WBAT on operative extremity -continue ankle pumps and dvt ppx through 4 weeks -discussed driving requirement: 4 weeks post-op, off narcotic pain medication, adequate brake time -will see back at 6 week appointment for clinical exam -discussed red flag symptoms of acutely increasing pain, new erythema, new swelling, drainage, shortness of breath Hira Ruiz RN Orthopaedic Surgery [facility] 08-06-2023 History of Present illness Narrative Post-op Office Visit [place] Mosquera 83 year old August 06, 2023 3:02 PM Surgery Date: 07/22/23 History: [place] Mosquera Is now 2 weeks out from right TKA. Post-operative course has been without complication. No readmission/complications Subjective: Patient reports 1/10 pain. Overall is doing well. Walker as ambulatory aid Taking opioid pain medication every 6 hours PRN Objective: Ambulates with a walker, may transition to a cane Incision well-approximated, no drainage, normal alexandra-incisional erythema ROM 0 - 90 Distally DP/PT palpable Distally S/S/SP/DP/T intact at baseline Distally DF/EHL/PF intact at baseline Negative destinee/calf tenderness Xrays: Well-positioned total knee replacement in appropriate alignment with no evidence of loosening Assessment and Plan: [place] Mosquera Is here for a first post-op appointment, overall doing well -continued ice, rest, and use of non-narcotic analgesia as needed -wean off ambulatory aids -discussed home exercises and therapy -WBAT on operative extremity -continue ankle pumps and dvt ppx through 4 weeks -discussed driving requirement: 4 weeks post-op, off narcotic pain medication, adequate brake time -will see back at 6 week appointment for clinical exam -discussed red flag symptoms of acutely increasing pain, new erythema, new swelling, drainage, shortness of breath Hira Ruiz RN Orthopaedic Surgery documented in this encounter [facility] 08-06-2023 History of Present illness Narrative Radiology Service Progress Note PATIENT NAME: [place] Mosquera DATE OF SERVICE: August 06, 2023 TIME: 2:13 PM PATIENT IDENTITY VERIFICATION COMPLETED USING TWO (2) IDENTIFIERS: Name and Date of confirmed by patient verbally. FALL SCREENING: Has the patient had 2 falls in the last year or 1 fall with injury or currently using an Ambulatory Assistive Device (Walker, Cane, Wheelchair, Crutches, etc.)? No PATIENT GENDER DATA: Female. status: : No status: NO. PATIENT RELEVANT IMPLANT DATA REVIEWED: Not Applicable PATIENT PRESENTS WITH AN IMPLANTABLE OR ATTACHED GORE CUTTER: No RADIOLOGY DEPARTMENT: General X-ray: Exam(s) Completed: Lower Extremity X-Ray(s): Knee, AP / Lat / Merchant Right and Wt. Bearing PERIPHERAL IV DATA: Not applicable SIGNED BY: Ermelinda Blanco August 06, 2023 2:13 PM documented in this encounter [facility] 08-06-2023 Note HNO ID: [id number] Author: CECI CULLEN Tech Service: Radiology Author Type: Generation Engineering Technologist Type: Progress Notes Filed: 08/06/2023 14:14 Note Text: Radiology Service Progress Note PATIENT NAME: [place] Mosquera DATE OF SERVICE: August 06, 2023 TIME: 2:13 PM PATIENT IDENTITY VERIFICATION COMPLETED USING TWO (2) IDENTIFIERS: Name and Date of confirmed by patient verbally. FALL SCREENING: Has the patient had 2 falls in the last year or 1 fall with injury or currently using an Ambulatory Assistive Device (Walker, Cane, Wheelchair, Crutches, etc.)? No PATIENT GENDER DATA: Female. status: : No status: NO. PATIENT RELEVANT IMPLANT DATA REVIEWED: Not Applicable PATIENT PRESENTS WITH AN IMPLANTABLE OR ATTACHED GORE CUTTER: No RADIOLOGY DEPARTMENT: General X-ray: Exam(s) Completed: Lower Extremity X-Ray(s): Knee, AP / Lat / Merchant Right and Wt. Bearing PERIPHERAL IV DATA: Not applicable SIGNED BY: Ermelinda Blanco August 06, 2023 2:13 PM [facility] 08-05-2023 Miscellaneous Notes SITUATION: spouse present during today's visit. patient reports the following since the last homecare visit: medications/allergies--no changes, no fall. patient reports she is doing ok. knee is stiff. BACKGROUND: Diagnoses (reason for Home Care): RTKR Weight Bearing/Precaution Changes: no changes ASSESSMENT: Focus of visit performed ROM and strength exercises for HEP. Gait training w/ww. AAROM 0-80 Plan of care, goals, and visit frequency reviewed and agreed upon with patient and/or caregiver. Current Discharge Plan: outpatient rehab Anticipate discharge by 08/09/23 RECOMMENDATION: Next visit to focus on NOMNC See intervention summary for intervention/education details. documented in this encounter [facility] 08-05-2023 Miscellaneous Notes Patient has been identified by name and date of : Yes, Provider Dr. Arnold Date: August 05, 2023 Time 10:59 AM Patient mycharts for refill(s): Requested Prescriptions Pending Prescriptions Disp Refills oxybutynin (DITROPAN) 5 mg tablet 180 tablet 3 Sig: Take 1 tablet by mouth two times a day. levothyroxine (SYNTHROID) 100 mcg tablet 100 tablet 3 Sig: TAKE 1 AND 1/2 TABLETS ON SATURDAY AND SATURDAY ONLY, TAKE 1 TABLET REST OF DAYS Date of last office visit in primary care: 11/29/2022 Date of next office visit in primary care: Visit date not found Pt changed pharmacies and needs these sent to new pharmacy. Oxybutynin - Rx no longer valid at current Pharmacy Levothyroxine - Rx not longer valid at current Pharmacy. Please advise. Thank you. Anu Damico Ma. documented in this encounter [facility] 08-05-2023 Miscellaneous Notes Rx sent Patient has been identified by name and date of : Yes Last office visit in this department: 08/08/2022 patient has 10/15/23 appt scheduled with you on the books RX INSTRUCTIONS: Patient aware RX will be sent to pharmacy. No need to notify patient. Patient phones requesting refills as follows: Requested Prescriptions No prescriptions requested or ordered in this encounter Please review and advise. Kenneth Price LPN documented in this encounter [facility] 08-05-2023 Miscellaneous Notes The following approved medication requests have been transmitted electronically. Requested Prescriptions Signed Prescriptions Disp Refills methotrexate 2.5 mg tablet 36 tablet 0 Sig: TAKE 3 TABLETS ONCE WEEKLY Authorizing Provider: ANJANA CLARK APRN.DEJAN Images from the original note were not included. Patient has been identified by name and date of : Yes Last office visit in this department: 08/08/2022 10/15/2023 next OV RX INSTRUCTIONS: Patient aware RX will be sent to pharmacy. No need to notify patient. Patient phones requesting refills as follows: Hemoglobin (g/dL) Date Value 07/24/2023 11.6 06/22/2021 12.9 Hematocrit (%) Date Value 07/24/2023 33.7 06/22/2021 37.8 WBC (k/uL) Date Value 07/24/2023 7.61 06/22/2021 6.14 Platelet Count (k/uL) Date Value 07/24/2023 171 06/22/2021 199 Latest Ref Rng & Units 07/24/2023 07/23/2023 07/23/2023 BMP Glucose 74 - 99 mg/dL 98 92 90 BUN 7 - 21 mg/dL 9 18 16 Creatinine 0.58 - 0.96 mg/dL 0.65 0.73 0.75 Sodium 136 - 144 mmol/L 130 132 131 Potassium 3.7 - 5.1 mmol/L 4.0 3.3 4.2 Chloride 97 - 105 mmol/L 96 96 97 CO2 22 - 30 mmol/L 28 24 25 Anion Gap 9 - 18 mmol/L 6 12 9 Calcium 8.5 - 10.2 mg/dL 8.8 8.9 8.6 EGFR >=60 mL/min/1.73m 87 82 79 AST Date Value Ref Range Status 06/22/2023 34 13 - 35 U/L Final ALT Date Value Ref Range Status 06/22/2023 28 7 - 38 U/L Final Requested Prescriptions Pending Prescriptions Disp Refills methotrexate 2.5 mg tablet [Pharmacy Med Name: METHOTREXATE TAB 2.5MG] 36 tablet 3 Sig: TAKE 3 TABLETS ONCE WEEKLY Please review and advise. Kenneth Price LPN documented in this encounter [facility] 08-02-2023 Miscellaneous Notes SITUATION: spouse present during today's visit. patient reportsno med changes, no falls. Pt states that her leg is really swollen today but she was up on her feet a lot yesterday because her was not home. Reports that she iced and elevated a lot and it is better this morning but not back to where it was . She was able to get OP PT set up for 08/12 BACKGROUND: Diagnoses (reason for Home Care): [facility] from 07/22/2023 to 07/24/2023 for any acute care referral. 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 Dystrophia Unguis Mediana Canaliformis Postmenopausal Atrophic Vaginitis Urgency of Urination Urge Incontinence Screening for Malignant Neoplasm of The Cervix Family History of Malignant Neoplasm of Breast Encounter for Long-Term (Current) Use of Medications Backache, Unspecified Hematuria Fibrocystic Breast Thoracic Or Lumbosacral Neuritis Or Radiculitis, Unspecified Facet Hypertrophy of Lumbar Region Lumbar Spondylosis Lumbar Radiculopathy 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) Lumbar Stenosis Chronic Pain of Right Knee Status Post Total Left Knee Replacement Absolute Anemia Sciatica Other Specified Rheumatoid Arthritis, Multiple Sites (Hcc) Anxiety Neurosis Primary Osteoarthritis of Left Hip Osteopenia of Multiple Sites S/P Total Knee Replacement Using Cement, Left Primary Osteoarthritis of Right Hip Mixed Hyperlipidemia History of Transient Ischemic Attack (Tia) History of Dvt of Lower Extremity Insomnia Status Post Thr (Total Hip Replacement) Hypocalcemia Tendinitis of Left Hip Flexor Trochanteric Bursitis of Both Hips S/P Total Knee Arthroplasty, Right Weight bearing status:WBAT Wound location: Right Knee, ASSESSMENT: Focus of visit ther ex, gait, balance, transfers , ROM 80* Plan of care, goals, and visit frequency reviewed and agreed upon with patient and/or caregiver. Current Discharge Plan: outpatient rehab Anticipate discharge by 08/09/23 RECOMMENDATION: Next visit to focus on ther ex, rom , gait See intervention summary for intervention/education details. documented in this encounter [facility] 07-31-2023 Miscellaneous Notes Patient calling in for a refill of her pain medication. She confirmed medication and pharmacy on voicemail. Patient phones requesting refills as follows: Requested Prescriptions Pending Prescriptions Disp Refills HYDROcodone-acetaminophen (NORCO) 5-325 mg per tablet 56 tablet 0 Sig: Take 1-2 tablets by mouth every 6 hours as needed for pain for up to 7 days. Please review and advise. Earline Palafox documented in this encounter [facility] 07-31-2023 Miscellaneous Notes SITUATION: spouse present during today's visit. patient reportsno med changes, no falls. Pt states that she has been able to sleep if she stays in the recliner. Sleeping has made a big diifernce in how i feel BACKGROUND: Diagnoses (reason for Home Care): [facility] from 07/22/2023 to 07/24/2023 for any acute care referral. 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 Dystrophia Unguis Mediana Canaliformis Postmenopausal Atrophic Vaginitis Urgency of Urination Urge Incontinence Screening for Malignant Neoplasm of The Cervix Family History of Malignant Neoplasm of Breast Encounter for Long-Term (Current) Use of Medications Backache, Unspecified Hematuria Fibrocystic Breast Thoracic Or Lumbosacral Neuritis Or Radiculitis, Unspecified Facet Hypertrophy of Lumbar Region Lumbar Spondylosis Lumbar Radiculopathy 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) Lumbar Stenosis Chronic Pain of Right Knee Status Post Total Left Knee Replacement Absolute Anemia Sciatica Other Specified Rheumatoid Arthritis, Multiple Sites (Hcc) Anxiety Neurosis Primary Osteoarthritis of Left Hip Osteopenia of Multiple Sites S/P Total Knee Replacement Using Cement, Left Primary Osteoarthritis of Right Hip Mixed Hyperlipidemia History of Transient Ischemic Attack (Tia) History of Dvt of Lower Extremity Insomnia Status Post Thr (Total Hip Replacement) Hypocalcemia Tendinitis of Left Hip Flexor Trochanteric Bursitis of Both Hips S/P Total Knee Arthroplasty, Right Weight bearing status:WBAT Wound location: Right Knee, Wound care: ASSESSMENT: Focus of visit ther ex, gait, balance, transfers , ROM 77* Plan of care, goals, and visit frequency reviewed and agreed upon with patient and/or caregiver. Current Discharge Plan: outpatient rehab Anticipate discharge by tbd RECOMMENDATION: Next visit to focus on ther ex, rom , gait See intervention summary for intervention/education details. documented in this encounter [facility] 07-29-2023 Miscellaneous Notes Severe med interactions. Medication review completed. No ineffective drug therapy, significant side effects, significant drug interactions, duplicate drug therapy, or noncompliance with drug therapy noted. documented in this encounter [facility] 07-29-2023 Miscellaneous Notes SITUATION: spouse present during today's visit. patient reports the pain was pretty bad over the weekend . her primary complaint is her inability to sleep. i cant sleep more than little cat naps and it just makes everythign worse . Pt juan m upset that her dtr who was supposed to stay with her for several days went home day night and her spouse is not able to assist her as well. BACKGROUND: Diagnoses (reason for Home Care): [facility] from 07/22/2023 to 07/24/2023 for any acute care referral. 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 Dystrophia Unguis Mediana Canaliformis Postmenopausal Atrophic Vaginitis Urgency of Urination Urge Incontinence Screening for Malignant Neoplasm of The Cervix Family History of Malignant Neoplasm of Breast Encounter for Long-Term (Current) Use of Medications Backache, Unspecified Hematuria Fibrocystic Breast Thoracic Or Lumbosacral Neuritis Or Radiculitis, Unspecified Facet Hypertrophy of Lumbar Region Lumbar Spondylosis Lumbar Radiculopathy 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) Lumbar Stenosis Chronic Pain of Right Knee Status Post Total Left Knee Replacement Absolute Anemia Sciatica Other Specified Rheumatoid Arthritis, Multiple Sites (Hcc) Anxiety Neurosis Primary Osteoarthritis of Left Hip Osteopenia of Multiple Sites S/P Total Knee Replacement Using Cement, Left Primary Osteoarthritis of Right Hip Mixed Hyperlipidemia History of Transient Ischemic Attack (Tia) History of Dvt of Lower Extremity Insomnia Status Post Thr (Total Hip Replacement) Hypocalcemia Tendinitis of Left Hip Flexor Trochanteric Bursitis of Both Hips S/P Total Knee Arthroplasty, Right Weight bearing status:WBAT Wound location: Right Knee, Wound care: Silver impregnated dressing to remain on for 7 days ASSESSMENT: Focus of visit ther ex, gait, balance, transfers , ROM Dressing removed . Incision clean, dry , intact. With pts permission a photo was uploaded for MD to review Plan of care, goals, and visit frequency reviewed and agreed upon with patient and/or caregiver. Current Discharge Plan: outpatient rehab Anticipate discharge by tbd RECOMMENDATION: Next visit to focus on ther ex, rom , gait See intervention summary for intervention/education details. documented in this encounter [facility] 07-26-2023 Miscellaneous Notes SITUATION: spouse and daughter present during today's visit. patient reports the apin has been pretty bad . 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 Home is a condo on the second floor - elevator to enter PLF: functionally indep w/o ad. + driving Her knee was not bothering her much prior to surgery but because her husbands health is stable a the moment both she and her surgeon thought it would be bes to do the surgery now BACKGROUND: Diagnoses (reason for Home Care): [facility] from 07/22/2023 to 07/24/2023 for any acute care referral. 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 Dystrophia Unguis Mediana Canaliformis Postmenopausal Atrophic Vaginitis Urgency of Urination Urge Incontinence Screening for Malignant Neoplasm of The Cervix Family History of Malignant Neoplasm of Breast Encounter for Long-Term (Current) Use of Medications Backache, Unspecified Hematuria Fibrocystic Breast Thoracic Or Lumbosacral Neuritis Or Radiculitis, Unspecified Facet Hypertrophy of Lumbar Region Lumbar Spondylosis Lumbar Radiculopathy 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) Lumbar Stenosis Chronic Pain of Right Knee Status Post Total Left Knee Replacement Absolute Anemia Sciatica Other Specified Rheumatoid Arthritis, Multiple Sites (Hcc) Anxiety Neurosis Primary Osteoarthritis of Left Hip Osteopenia of Multiple Sites S/P Total Knee Replacement Using Cement, Left Primary Osteoarthritis of Right Hip Mixed Hyperlipidemia History of Transient Ischemic Attack (Tia) History of Dvt of Lower Extremity Insomnia Status Post Thr (Total Hip Replacement) Hypocalcemia Tendinitis of Left Hip Flexor Trochanteric Bursitis of Both Hips S/P Total Knee Arthroplasty, Right Weight bearing status: WBAT Wound location: Right Knee, Wound care: Silver impregnated dressing to remain on for 7 days ASSESSMENT: Patient evaluated by [facility] physical therapy. Reviewed and explained homecare services. Plan of care, goals, and visit frequency developed, reviewed, and agreed upon with patient and/or caregiver. Patient Goal: walk without pain Patient will benefit from continued physical therapy to address the following deficits: strength, balance, gait, endurance, r knee joint ROM, transfers, stair negotiation and bed mobility. Current Discharge Plan: outpatient rehab. Anticipate discharge by tbd. RECOMMENDATION: Next visit to focus on ther ex , gait, balane, transfers ,ROM Agreeable to PT; declining one. See intervention summary for intervention/education details. documented in this encounter [facility] 07-25-2023 Miscellaneous Notes Patient calling in for a refill of her pain medication. She was only given 10 tablets for pain upon discharge for pain. Pharmacy and medication were verified with the patient. Call the patient with any questions. Patient phones requesting refills as follows: Requested Prescriptions Pending Prescriptions Disp Refills HYDROcodone-acetaminophen (NORCO) 5-325 mg per tablet 50 tablet 0 Sig: Take 1-2 tablets by mouth every 6 hours as needed for up to 7 days. Please review and advise. Earline Palafox documented in this encounter [facility] 07-24-2023 Note HNO ID: [id number] Author: KIRT REEVES MD Service: General Internal Medicine Author Type: Physician Type: Progress Notes Filed: 07/24/2023 08:59 Note Text: INPATIENT PROGRESS NOTES Patient Name: [place] Mosquera DATE of SERVICE: 07/24/2023 7:05 PRIMARY SERVICE: medicine INTERVAL HPI: Uneventful night, pain is well-controlled. No nausea or vomiting. no cough or shortness of breath ASSESSMENT AND PLAN: Osteoarthritis, status post right total knee arthroplasty DVT prophylaxis with aspirin Syncope suspect due to hypotension Rheumatoid arthritis Overactive bladder continue Ditropan Hypothyroidism, currently on Synthroid Hyperlipidemia currently on statins Mild hyponatremia suspect due to hydrochlorothiazide, Currently off hydrochlorothiazide Monitor lab as out pt Possible discharge today PERTINENT ROS: All other reviewed and negative other than HPI. MEDICATIONS: Current Facility-Administered Medications Medication Dose Route Frequency NaCl 0.9% iv flush bag 20 mL INTRAVENOUS PRN lactated ringers iv infusion 75 mL/hr INTRAVENOUS CONTINUOUS oxyCODONE IR 5-10 mg tab(s) (ROXICODONE) 5-10 mg ORAL q 4 H PRN HYDROmorphone 0.2 mg injection (DILAUDID) 0.2 mg INTRAVENOUS q 3 H PRN acetaminophen 1,000 mg tab(s) (TYLENOL) 1,000 mg ORAL q 8 H keTORolac 15 mg injection (Toradol) 15 mg INTRAVENOUS q 6 H ondansetron orally disintegrating 4 mg tab(s) (ZOFRAN ODT) 4 mg ORAL q 6 H PRN Or ondansetron (PF) 4 mg injection (ZOFRAN) 4 mg INTRAVENOUS q 6 H PRN polyethylene glycol 3350 17 g packet 17 g ORAL DAILY PRN bisacodyl EC 10 mg tab(s) (DULCOLAX) 10 mg ORAL DAILY aluminum-magnesium hydroxide-simethicone 200-200-20 mg/5 mL 30 mL 30 mL ORAL q 2 H PRN ascorbic acid (vitamin C) 500 mg tab(s) (VITAMIN C) 500 mg ORAL BID w MEALS docusate sodium 100 mg cap(s) (COLACE) 100 mg ORAL BID senna 17.2 mg tab(s) (SENOKOT) 17.2 mg ORAL AT BEDTIME aspirin, enteric coated 81 mg tab(s) 81 mg ORAL BID LORazepam 0.5 mg tab(s) (ATIVAN) 0.5 mg ORAL AT BEDTIME rosuvastatin 10 mg tab(s) (CRESTOR) 10 mg ORAL AT BEDTIME hydroCHLOROthiazide 12.5 mg tab(s) 12.5 mg ORAL DAILY PRN trospium 20 mg tab(s) (SANCTURA) 20 mg ORAL BID AC [START ON 07/25/2023] levothyroxine 150 mcg (SYNTHROID) 150 mcg ORAL Every levothyroxine 100 mcg tab(s) (SYNTHROID) 100 mcg ORAL Once per day on Saturday sodium chloride 0.9 % (flush) 2-10 mL (BD POSIFLUSH) 2-10 mL INTRAVENOUS DIRECTED PRN And perflutren lipid microspheres 1.1 mg/mL 1.3 mL injection (DEFINITY) 1.3 mL INTRAVENOUS DIRECTED PRN PHYSICAL EXAM: Blood pressure 149/56, pulse 67, temperature 36.7 ?C (98.1 ?F), temperature source Oral, resp. rate 14, height 154.9 cm (5' 1 ), weight 55.3 kg (122 lb), SpO2 98%. Body mass index is 23.05 kg/m?. GENERAL: Alert, no distress, cooperative NECK: No jugulovenous distention LUNGS: CTAB CARDIAC: Normal S1 and S2; no rubs, murmurs, or gallops ABDOMEN: Abdomen soft, non-tender, BS normal, No masses or organomegaly EXTREMITIES: no edema, no calf tenderness CBC: Recent Labs 07/24/23 0646 WBC 7.61 RBC 3.59* HB 11.6 HCT 33.7* PLT 171 MCV 93.9 MCH 32.3 MPV 9.1 Coags: CMP: Recent Labs 07/24/23 0646 NA 130* K 4.0 CHLOR 96* CO2 28 BUN 9 CREAT 0.65 GLUC 98 CA 8.8 ANION 6* SIGNATURE: Kirt Reeves MD [facility] 07-24-2023 Note HNO ID: [id number] Author: KENNETH ALTAMIRANO PA-C Service: Orthopaedic Surgery Author Type: Physician Occ Therapy Asst Type: Progress Notes Filed: 07/24/2023 08:01 Note Text: POSTOP NOTE ORTHOPAEDIC SURGERY SERVICE DATE: 07/24/2023 SERVICE TIME: 7:57 AM IMPRESSION/PLAN: S/P Procedure(s) (LRB): ROBOTIC ASSISTED TOTAL KNEE ARTHROPLASTY (Right) on 07/22/2023 Physical Therapy recommending Home PT WBAT RLE DVT prophylaxis: Intermittent pneumatic compression device (IPCD) and ASA 81 BID Pain control Syncope: lightheadedness resolved; vitals WNL overnight; mgmt per IM Case Management for discharge planning Plan of care discussed with: Provider, RN, Patient. Patient Active Hospital Problem List: Primary osteoarthritis of right knee (07/23/2023) S/P total knee arthroplasty, right (07/23/2023) Syncope (07/23/2023) POST OPERATIVE COMPLICATIONS: Complicated by uneventful/none SUBJECTIVE: Rapid response called yesterday while working with PT due syncopal episode suspected to be vasovagal. Patient states that they are feeling better today. Well Controlled knee pain. Denies lightheadedness or other complaints. OBJECTIVE: VITAL SIGNS: BP 149/56 Pulse 67 Temp 36.7 ?C (98.1 ?F) (Oral) Resp 14 Ht 154.9 cm (5' 1 ) Wt 55.3 kg (122 lb) SpO2 98% BMI 23.05 kg/m? INTAKE AND OUTPUT: Intake/Output Summary (Last 24 hours) at 07/24/2023 0757 Last data filed at 07/24/2023 0720 Gross per 24 hour Intake 3921 ml Output 3950 ml Net -29 ml LABS: Hemoglobin Date Value Ref Range Status 07/24/2023 11.6 11.5 - 15.5 g/dL Final 07/23/2023 12.1 11.5 - 15.5 g/dL Final Hematocrit Date Value Ref Range Status 07/24/2023 33.7 (L) 36.0 - 46.0 % Final 07/23/2023 36.1 36.0 - 46.0 % Final Platelet Count Date Value Ref Range Status 07/24/2023 171 150 - 400 k/uL Final 07/23/2023 221 150 - 400 k/uL Final WBC Date Value Ref Range Status 07/24/2023 7.61 3.70 - 11.00 k/uL Final 07/23/2023 13.16 (H) 3.70 - 11.00 k/uL Final Creatinine Date Value Ref Range Status 07/24/2023 0.65 0.58 - 0.96 mg/dL Final 07/23/2023 0.73 0.58 - 0.96 mg/dL Final Potassium Date Value Ref Range Status 07/24/2023 4.0 3.7 - 5.1 mmol/L Final 07/23/2023 3.3 (L) 3.7 - 5.1 mmol/L Final VTE Prophylaxis: Active VTE Risk Category Order: 07/22/23 1530 VTE RISK CATEGORY: SURGICAL HIGH RISK (ND,AL) Active VTE Medication Orders: Anticoagulant AND Antiplatelet Medications (From admission, onward) Start Dose Route Frequency Last Action Ordered Stop 07/23/23 0900 aspirin, enteric coated 81 mg tab(s) (Surgical Risk Categories) 81 mg ORAL 2 TIMES DAILY Given, 07/22 195707/22/23 1522 -- Active VTE Prophylaxis Orders: 07/22/23 1530 PNEUMATIC COMPRESSION STOCKINGS ([place], [place]) 07/22/23 1530 ACTIVITY - MOBILIZE PATIENT ([place], [place]) PHYSICAL EXAMINATION: Right Lower Extremity: Dorsalis pedis pulses palpable. Posterior tibial pulses palpable. Dorsi flexion 5/5. Plantar flexion 5/5. Extensor hallucis extension: 5/5. Sensory intact to light touch L4-S1. Dressing clean, dry, and intact. Surgical site no drainage and Silverlon intact. DATA: Diagnostic tests reviewed for today's visit: Most recent labs and imaging results. SIGNATURE: Kenneth Altamirano PA-C PATIENT NAME: Indiana Mosquera DATE: July 24, 2023 TIME: 7:57 AM The patient has undergone major orthopedic surgery and participating in therapy. Pain cannot be managed within an average of 30 MED per day. Patient requiring average of higher than 30 MED per day in order to control pain and allow patient to actively and safely participate in therapy and this is the lowest dose consistent with patient's medical condition. Non-narcotic medication options have been discussed. In addition, the patient has been advised of the benefits and risks of the opioid (including the potential for addiction). Patient demonstrated understanding of risks versus benefits. [facility] 07-23-2023 Note HNO ID: [id number] Author: KIRT REEVES MD Service: General Internal Medicine Author Type: Physician Type: Progress Notes Filed: 07/23/2023 20:45 Note Text: Pt reexamined and discussed with daughter One episode of syncope and presyncopal episode, lightheadedness prior to episode , monitor orthostatic vitals, restart iv fluid Kirt Reeves MD 07/23/2023 1645 [facility] 07-23-2023 Miscellaneous Notes Date/Time: 07/23/2023 12:47 PM Spoke with patient @ phone #: [phone] - Preferred # for contact: [phone] Have you received help from a home care company in the last 60 days? no Are you agreeable to [facility] services? Yes What address will we be seeing you at? [address] [facility] [address] Do you have any upcoming appointments or things we need to schedule around? No Do you have a teachable CG or can you manage your care independently? Cares for self documented in this encounter [facility] 07-23-2023 Note HNO ID: [id number] Author: KIRT REEVES MD Service: General Internal Medicine Author Type: Physician Type: Progress Notes Filed: 07/23/2023 09:37 Note Text: INPATIENT PROGRESS NOTES Patient Name: Indiana Mosquera DATE of SERVICE: 07/23/2023 PRIMARY SERVICE: medicine INTERVAL HPI: Uneventful night, pain is well-controlled. No nausea or vomiting. No lightheadedness or dizziness no cough or shortness of breath ASSESSMENT AND PLAN: Osteoarthritis, status post right total knee arthroplasty DVT prophylaxis with aspirin Rheumatoid arthritis Overactive bladder continue Ditropan Hypothyroidism, currently on Synthroid Hypertension continue hydrochlorothiazide Hyperlipidemia currently on statins Mild hyponatremia suspect due to hydrochlorothiazide, Currently off hydrochlorothiazide Possible discharge today Home-going meds reviewed Plan of care discussed with: Provider, RN, Patient. PERTINENT ROS: All other reviewed and negative other than HPI. MEDICATIONS: Current Facility-Administered Medications Medication Dose Route Frequency NaCl 0.9% iv flush bag 20 mL INTRAVENOUS PRN lactated ringers iv infusion 75 mL/hr INTRAVENOUS CONTINUOUS oxyCODONE IR 5-10 mg tab(s) (ROXICODONE) 5-10 mg ORAL q 4 H PRN HYDROmorphone 0.2 mg injection (DILAUDID) 0.2 mg INTRAVENOUS q 3 H PRN acetaminophen 1,000 mg tab(s) (TYLENOL) 1,000 mg ORAL q 8 H keTORolac 15 mg injection (Toradol) 15 mg INTRAVENOUS q 6 H ondansetron orally disintegrating 4 mg tab(s) (ZOFRAN ODT) 4 mg ORAL q 6 H PRN Or ondansetron (PF) 4 mg injection (ZOFRAN) 4 mg INTRAVENOUS q 6 H PRN polyethylene glycol 3350 17 g packet 17 g ORAL DAILY PRN [START ON 07/24/2023] bisacodyl EC 10 mg tab(s) (DULCOLAX) 10 mg ORAL DAILY aluminum-magnesium hydroxide-simethicone 200-200-20 mg/5 mL 30 mL 30 mL ORAL q 2 H PRN ascorbic acid (vitamin C) 500 mg tab(s) (VITAMIN C) 500 mg ORAL BID w MEALS docusate sodium 100 mg cap(s) (COLACE) 100 mg ORAL BID senna 17.2 mg tab(s) (SENOKOT) 17.2 mg ORAL AT BEDTIME aspirin, enteric coated 81 mg tab(s) 81 mg ORAL BID scopolamine - VERIFY patch OTHER q 8 H [START ON 07/24/2023] scopolamine - REMOVE PATCH OTHER ONCE LORazepam 0.5 mg tab(s) (ATIVAN) 0.5 mg ORAL AT BEDTIME rosuvastatin 10 mg tab(s) (CRESTOR) 10 mg ORAL AT BEDTIME hydroCHLOROthiazide 12.5 mg tab(s) 12.5 mg ORAL DAILY PRN trospium 20 mg tab(s) (SANCTURA) 20 mg ORAL BID AC [START ON 07/25/2023] levothyroxine 150 mcg (SYNTHROID) 150 mcg ORAL Every levothyroxine 100 mcg tab(s) (SYNTHROID) 100 mcg ORAL Once per day on Saturday PHYSICAL EXAM: Patient Vitals for the past 24 hrs: BP Temp Temp src Pulse Resp SpO2 Height Weight 07/23/23 0751 148/71 36.5 ?C (97.7 ?F) Oral 69 18 98 % -- -- 07/23/23 0328 142/71 36.6 ?C (97.9 ?F) Oral 70 18 96 % -- -- 07/22/23 2309 (!) 105/47 36.5 ?C (97.7 ?F) Oral 61 16 100 % -- -- 07/22/23 1953 114/50 36.5 ?C (97.7 ?F) Oral 60 16 98 % -- -- 07/22/23 1550 149/62 36.7 ?C (98 ?F) Temporal Art 68 16 97 % -- -- 07/22/23 1522 152/70 36.6 ?C (97.8 ?F) Oral 66 16 98 % -- -- 07/22/23 1500 151/70 36.6 ?C (97.9 ?F) Temporal 71 17 96 % -- -- 07/22/23 1445 150/61 -- -- 75 20 97 % -- -- 07/22/23 1430 154/62 -- -- 77 15 97 % -- -- 07/22/23 1426 146/67 36.6 ?C (97.9 ?F) Temporal 80 10 95 % -- -- 07/22/23 1150 151/67 -- -- 66 28 95 % -- -- 07/22/23 1140 163/72 -- -- 62 10 99 % -- -- 07/22/23 1137 169/71 -- -- 68 19 99 % -- -- 07/22/23 1133 162/69 -- -- 71 17 98 % -- -- 07/22/23 1130 154/70 -- -- 68 19 99 % -- -- 07/22/23 1127 157/85 -- -- 73 25 99 % -- -- 07/22/23 1124 190/91 -- -- 75 30 99 % -- -- 07/22/23 1123 191/87 -- -- 73 26 100 % -- -- 07/22/23 1100 184/68 -- -- 70 -- 98 % -- -- 07/22/23 1059 196/82 36.8 ?C (98.2 ?F) Temporal Art -- 100 % 154.9 cm (5' 1 ) 55.3 kg (122 lb) Body mass index is 23.05 kg/m?. GENERAL: Alert, no distress, cooperative NECK: No jugulovenous distention LUNGS: Lungs clear to auscultation, CARDIAC: Normal S1 and S2; no rubs, murmurs, or gallops ABDOMEN: Abdomen soft, non-tender, BS normal, No masses or organomegaly EXTREMITIES: no edema, no calf tenderness CBC: Recent Labs 07/23/23 0714 WBC 10.59 RBC 3.68* HB 11.9 HCT 34.4* PLT 192 MCV 93.5 MCH 32.3 MPV 9.7 Coags: CMP: Recent Labs 07/23/23 0714 NA 131* K 4.2 CHLOR 97 CO2 25 BUN 16 CREAT 0.75 GLUC 90 CA 8.6 ANION 9 SIGNATURE: Kirt Reeves MD [facility] 07-23-2023 Miscellaneous Notes Order filed. Po Delgadillo APRN.EMISSION SPECIALIST Please place mammogram order. documented in this encounter [facility] 07-23-2023 Note HNO ID: [id number] Author: KENNETH ALTAMIRANO PA-C Service: Orthopaedic Surgery Author Type: Physician Occ Therapy Asst Type: Progress Notes Filed: 07/23/2023 07:27 Note Text: POSTOP NOTE ORTHOPAEDIC SURGERY SERVICE DATE: 07/23/2023 SERVICE TIME: 7:26 AM IMPRESSION/PLAN: S/P Procedure(s) (LRB): ROBOTIC ASSISTED TOTAL KNEE ARTHROPLASTY (Right) on 07/22/2023 Physical Therapy evaluation WBAT RLE DVT prophylaxis: Intermittent pneumatic compression device (IPCD) and ASA 81 BID Pain control Case Management for discharge planning Plan of care discussed with: Provider, RN, Patient. Patient Active Hospital Problem List: No active hospital problems. POST OPERATIVE COMPLICATIONS: Complicated by uneventful/none SUBJECTIVE: Patient states that they are comfortable Well Controlled knee pain. Denies incisional pain. OBJECTIVE: VITAL SIGNS: BP 142/71 Pulse 70 Temp 36.6 ?C (97.9 ?F) (Oral) Resp 18 Ht 154.9 cm (5' 1 ) Wt 55.3 kg (122 lb) SpO2 96% BMI 23.05 kg/m? INTAKE AND OUTPUT: Intake/Output Summary (Last 24 hours) at 07/23/2023 0776 Last data filed at 07/23/2023 0400 Gross per 24 hour Intake 1375 ml Output 1400 ml Net -25 ml LABS: Hemoglobin Date Value Ref Range Status 06/22/2023 12.9 11.5 - 15.5 g/dL Final 03/04/2023 12.8 11.5 - 15.5 g/dL Final Hematocrit Date Value Ref Range Status 06/22/2023 39.7 36.0 - 46.0 % Final 03/04/2023 38.9 36.0 - 46.0 % Final Platelet Count Date Value Ref Range Status 06/22/2023 242 150 - 400 k/uL Final 03/04/2023 218 150 - 400 k/uL Final WBC Date Value Ref Range Status 06/22/2023 5.55 3.70 - 11.00 k/uL Final 03/04/2023 5.87 3.70 - 11.00 k/uL Final Creatinine Date Value Ref Range Status 06/22/2023 0.73 0.58 - 0.96 mg/dL Final 03/04/2023 0.74 0.58 - 0.96 mg/dL Final Potassium Date Value Ref Range Status 07/25/2022 5.0 3.7 - 5.1 mmol/L Final 02/14/2021 4.2 3.7 - 5.1 mmol/L Final VTE Prophylaxis: Active VTE Risk Category Order: 07/22/23 1530 VTE RISK CATEGORY: SURGICAL H[place]IS[place] ([place] Active VTE Medication Orders: Anticoagulant AND Antiplatelet Medications (From admission, onward) Start Dose Route Frequency Last Action Ordered Stop 07/23/23 0900 aspirin, enteric coated 81 mg tab(s) (Surgical Risk Categories) 81 mg ORAL 2 TIMES DAILY Ordered 07/22/23 1522 -- Active VTE Prophylaxis Orders: 07/22/23 1530 PNEUMATIC COMPRESSION STOCKINGS ([place]) 07/22/23 1530 ACTIVITY - MOBILIZE PATIENT ([place], [place]) PHYSICAL EXAMINATION: Right Lower Extremity: Dorsalis pedis pulses palpable. Posterior tibial pulses palpable. Dorsi flexion 5/5. Plantar flexion 5/5. Extensor hallucis extension: 5/5. Sensory intact to light touch L4-S1. Dressing clean, dry, and intact. Surgical site no drainage and Silverlon intact. Problem Review and Assessment: Skin and Abdominal Wall: Patient monitored, no new events overnight Cardiovascular and Vascular: Patient monitored, no new events overnight Respiratory: Patient monitored, no new events overnight Endocrine and Metabolic: Patient monitored, no new events overnight Gastrointestinal: Patient monitored, no new events overnight Genitourinary and Nephrology: Patient monitored, no new events overnight Behavioral, Cerebrovascular and Nervous: Patient monitored, no new events overnight Infectious: Patient monitored, no new events overnight DATA: Diagnostic tests reviewed for today's visit: Most recent labs and imaging results. SIGNATURE: Kenneth Altamirano PA-C PATIENT NAME: Indiana Mosquera DATE: July 23, 2023 TIME: 7:26 AM The patient has undergone major orthopedic surgery and participating in therapy. Pain cannot be managed within an average of 30 MED per day. Patient requiring average of higher than 30 MED per day in order to control pain and allow patient to actively and safely participate in therapy and this is the lowest dose consistent with patient's medical condition. Non-narcotic medication options have been discussed. In addition, the patient has been advised of the benefits and risks of the opioid (including the potential for addiction). Patient demonstrated understanding of risks versus benefits. [facility] 07-22-2023 Note HNO ID: [id number] Author: MATY DAVIS APRN.USER INTERFACE DESIGNER Service: Anesthesiology Author Type: Nurse Marble Mason Type: Anesthesia Procedure Notes Filed: 07/22/2023 12:32 Note Text: ANESTHESIOLOGY PROCEDURE NOTE Spinal Block General Information Procedure Start Time/Medication Administration: 07/22/2023 12:20 PM Patient location during procedure: OR Timeout Performed Pre-procedure: timeout performed Reason for Block: primary surgical anesthetic Staffing USER INTERFACE DESIGNER: Maty Davis APRN.USER INTERFACE DESIGNER Preparation Sterility Preparation: hand hygiene performed prior to procedure, sterile gloves, drapes, and procedure tray, surgical cap used, mask used, sterile drape used during line insertion, skin prep agent completely dried prior to procedure Sterility Technique Not Completely Performed Due to Extreme Emergency: No Site Prep: Betadine Procedure Details Patient Position: sitting Ultrasound Guided: No Monitoring: Pulse Ox, EKG and NIBP Approach: Right paramedian Location: L3-4 Injection Technique: single-shot Needle Needle Type: pencil-tip Needle Gauge: 25 G Needle Length: 3.5 in Needle Insertion Depth: 8 cm CSF: CSF clear SIGNATURE: Maty Rock APRN.USER INTERFACE DESIGNER PATIENT NAME: Indiana Mosquera DATE: July 22, 2023 TIME: 12:31 PM CSN: [id number] [facility] 07-22-2023 Note HNO ID: [id number] Author: LACI WATERMAN DO Service: Anesthesiology Author Type: Anesthesiologist Type: Anesthesia Procedure Notes Filed: 07/22/2023 11:40 Note Text: ANESTHESIOLOGY PROCEDURE NOTE Peripheral Nerve Block General Information Procedure Start Time/Medication Administration: 07/22/2023 11:31 AM Procedure End time: 07/22/2023 11:34 AM Patient location during procedure: pre-op Timeout Performed Pre-procedure: timeout performed Consent Obtained: Yes Patient identity confirmed: arm band, 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 and 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 Reason for block: post-op pain management/at surgeon's request Staffing Anesthesiologist: Laci Waterman DO Performed by: anesthesiologist Preparation Sterility Preparation: hand hygiene performed prior to procedure, sterile gloves, drapes, and procedure tray, surgical cap used, mask used, sterile drape used during line insertion, skin prep agent completely dried prior to procedure Site Prep: Chloraprep Pre-Procedure Neuro Exam Location: RLE Sensory: intact Motor: intact Procedure Details Patient Position: supine Monitoring: Pulse OX, EKG and NIBP Block Type Lower Extremity: distal femoral (adductor canal) Approach: anterior Laterality: right Injection Technique: single-shot Ultrasound Guided: Yes Image in Chart: yes Needle Needle Type: echogenic Needle Gauge: 21 G Needle Length: 100 mm Needle Localization: ultrasound and anatomical landmarks Assessment Injection assessment: negative aspiration, no paresthesia on injection, incremental injection and local visualized surrounding nerve on ultrasound Paresthesia: none Post-Procedure Neuro Exam Expected Regional Anesthesia: Yes Medications Administered ropivacaine (PF) 5 mg/mL (0.5 %) injection (NAROPIN) - peripheral nerve block 30 mL - 07/22/2023 11:31:00 AM dexamethasone sodium phosphate injection (DECADRON) - peripheral nerve block 4 mg - 07/22/2023 11:31:00 AM SIGNATURE: Laci Waterman DO PATIENT NAME: Indiana Mosquera DATE: July 22, 2023 TIME: 11:38 AM CSN: [id number] [facility] 07-17-2023 Miscellaneous Notes Re-entered patients information into the [email or web address] [facility]. Called and let her know if she would like to retry, but also let her know she isn't missing too much information. Let her now that we are available in [employer] or via phone if she has any questions. She verbalized understanding and stated that this is her 4th replacement, so she is comfortable not being on the Loop. Patient has tried several times to get in to the [email or web address] loop and has failed. She tried the link you sent today and has just given up. Not sure what you would want her to do at this point. She can be reached at [phone]. Earline Palafox documented in this encounter [facility] 07-03-2023 History and physical note HISTORY AND PHYSICAL EXAMINATION SERVICE DATE: 07/03/2023 SERVICE TIME: 10:13 AM PRIMARY CARE PHYSICIAN: Jerry Arnold MD Assessment Patient has the following medical conditions which may affect alexandra-operative course: Absolute anemia Assessment: h/o Hemoglobin (g/dL) Date Value 06/22/2023 12.9 06/22/2021 12.9 Hematocrit (%) Date Value 06/22/2023 39.7 06/22/2021 37.8 WBC (k/uL) Date Value 06/22/2023 5.55 06/22/2021 6.14 Acquired hypothyroidism Assessment: stable on rx Facet hypertrophy of lumbar region Assessment: s/p lumbar laminectomy, rx as needed History of DVT of lower extremity Assessment: provoked by TKA, tx with AC History of transient ischemic attack (TIA) Assessment: ?hx, following [facility]vascular at [facility], c/w statin and ASA therapy Emily Radford CNP IMPRESSION Episode of transient word finding difficulties in setting of headache. She went to [facility] ED and by the time she arrived, her symptoms resolved. Per imaging results: no acute findings. Patient reports being under more stress recently, which could have led to the headache and onset of word difficulties. She has not had recurrence since that day. Episode likely migraine vs less likely TIA. Need to review actual images. PLAN Request imaging from [place] for review. Continue current medications Stroke warning signs/symptoms and when to seek immediate medical attention discussed. Hypocalcemia Assessment: hx Calcium, Total Date Value Ref Range Status 07/25/2022 9.4 8.5 - 10.2 mg/dL Final Insomnia Assessment: stable on rx Malignant neoplasm of skin Assessment: BCC s/p excision Mixed hyperlipidemia Assessment: c/w statin Osteopenia of multiple sites Assessment: following rheumatology, hx Fosamax tx, now receiving Reclast, taking calcium and Vit D supplement Dr. Rico 3. Osteopenia: About 30 yrs ago, broke hand after slipping on ice. On fosamax for 2 years, stopped around due to BMD normalization. With osteopenia per DEXA. Dec DEXA with osteopenia, high FRAX. In Feb, started reclast (had 2 days of pain following). In Feb, had hip surgery-femur reportedly split while surgeon was hammering it. Advised this is would not clearly be considered a fragility fracture. But that either way, continued treatment advisable. 2nd reclast in September. Dec DXA unable to compare forearm, hasn't been checked before. - Continue reclast, advised on or after 09/14/22 (no PA needed given Medicare A/B). [place] tx plan signed and in place. - Check vit D level. Notify of results via MyChart - Continue calcium and vitamin D supplementation - Check DEXA in Dec Other specified rheumatoid arthritis, multiple sites (HCC) Assessment: DMARD, MTx, following [facility] rheumatology, TE sent for pre-op medication instructions Dr. Rico 1. 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 Stable, would like to wean off MTX - Decrease to methotrexate 7.5mg PO weekly along with folic acid 1mg daily. Advised any change in dosing may not result in worsening until 3-6 months later. If stable by next visit, can go down by another tablet - Contine routine methotrexate lab monitoring every 3 months, next due Oct. Standing lab orders are in place. Verbal and written reminders provided. Will notify of results via [employer] - Continue orencia IV every 4 weeks (no PA required with Medicare A/B). September-November [facility] infusion orders signed S/P total knee replacement using cement, left Assessment: hx Status post THR (total hip replacement) Assessment: hx, bilaterally Urge incontinence Assessment: controlled on rx Venous insufficiency Assessment: controlled on rx, following vascular at [facility] History of diverticulitis Assessment: s/p partial colectomy Harmon Activity Status Index: METS: Climb a flight of stairs or walk up a hill (5.50 METs) DASI Score: 5.5 Patient denies any chest pain or undue shortness of breath with the above physical activity. Clinical Frailty Scale: 3. Well, with treated comorbid disease STOP-Bang Score: Has or is being treated for high blood pressure Patient over 50 years old Denies snoring loudly Denies feeling tired, fatigued, or sleepy during the daytime Has not been observed to stop breathing or choking/gasping during sleep BMI less than or equal to 35 kg/m^2 Does not have a large neck Non-male patient STOP-Bang Score: 2 [id number] Score: Age: >=75 Sex: female CHF history: No Hypertension history: Yes Stroke/TIA/thromboembolism history: Yes Vascular disease history: Yes Diabetes history: No [id number] Score: 7 ARISCAT Score: Age: >80 Preoperative SpO2: >=96% Respiratory infection in the last month: No Preoperative anemia: No Surgical incision: peripheral Duration of surgery: 2-3 hrs Emergency procedure: No ARISCAT Score: 32 ANESTHESIA FINDINGS: Intubation History: No history of difficult intubation Significant Anesthesia Considerations: none Airway History: No history of difficult airway I - PHYSICAL EVALUATION AIRWAY Patient intubated: No. Tracheostomy tube not present Mallampati: III. TM distance: >3 FB. Neck ROM: full ROM without neurological symptoms. Mouth opening: adequate. Short neck: no. Thick neck: no Staley present: no Lip Bite Test: I Microretrognathia/Micronagthia/Rec essed Chin: No DENTAL Dental findings: teeth intact. II - ANESTHESIA PLAN Anesthetic Plan: other Beta Armen Monitoring Plan Post Procedure Analgesic Plan Informed Consent Anesthetic risks, benefits, alternatives, personnel and consent discussed: yes. Patient / Responsible Constitution Party agrees to proceed: yes Patient / Surrogate agrees to blood products: blood products not planned Discussed the possibility of lip / dental damage: yes Prepared for Surgery: optimally prepared for surgery, pending [see comment]. ekg CONSULTS: Patient does not require consults for optimization at this time Planned Anesthetic: other anesthesia choice The Following Tests/Procedures Have Been Initiated: Orders Placed This Encounter mupirocin (BACTROBAN) 2 % ointment Sig: Apply 0.5 inch with cotton swab (Q-tip) to each nostril in the morning and evening for 5 days prior to and including day of surgery. Dispense: 22 g Refill: 0 meloxicam (MOBIC) 7.5 mg tablet Sig: DAILY ECG COMPLETE Order Comments: Ordered by an unspecified provider REASON FOR VISIT: Indiana Mosquera is a 83 year old female who is scheduled for Procedure(s): ROBOTIC ASSISTED TOTAL KNEE ARTHROPLASTY (Right) at the request of Dr. Sabina Jefferson for consultation. My final recommendation will be communicated back to the requesting physician by way of shared medical record or letter. 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 Dystrophia Unguis Mediana Canaliformis Postmenopausal Atrophic Vaginitis Urgency of Urination Urge Incontinence Screening for Malignant Neoplasm of The Cervix Family History of Malignant Neoplasm of Breast Encounter for Long-Term (Current) Use of Medications Backache, Unspecified Hematuria Fibrocystic Breast Thoracic Or Lumbosacral Neuritis Or Radiculitis, Unspecified Facet Hypertrophy of Lumbar Region Lumbar Spondylosis Lumbar Radiculopathy 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) Lumbar Stenosis Chronic Pain of Right Knee Status Post Total Left Knee Replacement Absolute Anemia Sciatica Other Specified Rheumatoid Arthritis, Multiple Sites (Hcc) Anxiety Neurosis Primary Osteoarthritis of Left Hip Osteopenia of Multiple Sites S/P Total Knee Replacement Using Cement, Left Primary Osteoarthritis of Right Hip Mixed Hyperlipidemia History of Transient Ischemic Attack (Tia) History of Dvt of Lower Extremity Insomnia Status Post Thr (Total Hip Replacement) Hypocalcemia Tendinitis of Left Hip Flexor Trochanteric Bursitis of Both Hips COVID-19 Immunization Status Overdue - Covid-19 Vaccine ( season) Overdue since 04/11/2023 02/14/2023 Imm Admin: COVID-19 vaccine, age 12+ yr, season (MODERNA) 05/14/2022 Imm Admin: COVID-19 vaccine, age 12+ yr, bivalent (MODERNA) 07/12/2021 Imm Admin: COVID-19 original vaccine, full dose, monovalent (MODERNA) Only the first 3 history entries have been loaded, but more history exists. CHIEF COMPLAINT: Pre-op exam HPI: [place] Mosquera is a 83 year old seen for PAC due to scheduled above surgery because of chronic right knee pain. 05/16/2023, Dr. Sabina Jefferson History: [place] is well-known to me for all of her hip and knee trouble. I replaced her right hip, my previous partner Dr. Jett replaced her left hip and her left knee. She has known severe right knee osteoarthritis. Although it is not terribly painful, it is starting to become more debilitating for her and give way. Her is battling several types of cancer and is just now in remission. As she ages, she has high concerns about not getting her knee taken care of now and being unable to later. She has already exhausted conservative management. REVIEW OF SYSTEMS: General: No weight loss, malaise or fevers. Neurological: +vertigo, rx as needed Positive for: TIA. Negative for: cerebral palsy, MONKEY TRAINER tumor, dementia, headaches, hemiplegia, multiple sclerosis, paraplegia, Parkinson's disease, seizures and strokes. Respiratory: No history of current cough or dyspnea, or pneumonia in the past 6 weeks. No history of respiratory/pulmonary symptoms or problems. 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 GI: No history of GI symptoms or problems. No history of esophageal varices, recent ascites, or ETOH greater than 2 drinks per day. : Positive for: urinary incontinence (+OAB on rx). Negative for: nephrolithiasis, renal failure and urinary tract infection. ENZYME CHEMIST: Negative for abnormal vaginal bleeding, abnormal vaginal discharge. Endocrine: Positive for: hypothyroidism (on rx). Hematology: No history of bleeding or clotting disorder. Patient is not taking anti-coagulation or platelet medications. No history of hematological symptoms or problems. Oncology: No history of CA metastasis, chemo within 30 days, or radiotherapy within 90 days. No history of oncological symptoms or problems. Psych: No history of psychiatric symptoms or problems. Musculoskeletal: See HPI. +hx bilateral ELDER +hx left TKA +hx lumbar laminectomy Positive for: rheumatoid arthritis. 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 Patient is using DMARDS for RA. Skin: Negative for lesions, rash and itching. 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 Blaine Duron Unspecified hypothyroidism Urge incontinence 2009 Urgency of urination 2009 Vertigo PAST SURGICAL HISTORY Procedure Laterality Date ANESTH DIAGNOSTIC ARTHROSCOPIC PROC KNEE JOINT right ARTHRP ACETBLR/PROX FEM PROSTC AGRFT/ALGRFT Left 01/02/2016 Hip replacement, total BIOPSY BREAST OPEN INCISIONAL Bx of breast, incisional BREAST BIOPSY CORE 07/13/2006 U/S needle core upper mid right breast CARPAL TUNNEL 09/2010 Dr Tello CHOLECYSTECTOMY lap COLECTOMY PARTIAL W/ANASTOMOSIS 11/2007 Laparoscopic Sigmoid colectomy for diverticulitis COLONOSCOPY FLX DX W/COLLJ SPEC WHEN PFRMD 03/12/2002 Colonoscopy COLONOSCOPY FLX DX W/COLLJ SPEC WHEN PFRMD 01/21/2009 Colonoscopy; Stricture dilated at colectomy site IMPLANT MESH OPN HERNIA RPR/DEBRIDEMENT CLOSURE 04/02/2011 PAST SURGICAL HISTORY OF 10/01/2006 LARISA PROCEDURE DONE ON FACE FOR SQUAMEOUS CELL CA, PAST SURGICAL HISTORY OF 03/2007 Removal of squamous cell carcinoma from clavicle and left leg by PAST SURGICAL HISTORY OF 04/19/2004 excision from R ear PAST SURGICAL HISTORY OF 06/11/2007 cystoscopy/retrograde PAST SURGICAL HISTORY OF 03/2013 titanium plate removed from left thumb PAST SURGICAL HISTORY OF 11/2014 laminectomy PAST SURGICAL HISTORY OF Left 05/16/2015 Total Left Knee PAST SURGICAL HISTORY OF 07/2015 laminectomy PAST SURGICAL HISTORY OF Right 09/16/2018 MOHS procedure, right cheek - [facility] [place] REPAIR FIRST ABDOMINAL WALL HERNIA 04/02/2011 SIGMOIDOSCOPY FLX DX W/COLLJ SPEC BR/WA IF PFRMD 06/01/2010 TOTAL HIP REPLACEMENT Right 02/13/2021 FAMILY HISTORY Problem Relation Age of Onset Cervical Cancer Mother Ischemic Heart Disease Father Heart Sister Breast Cancer Paternal Grandmother Hypertension Sister Stroke Sister Breast Cancer Sister 2009at 73 Hypertension Brother Ischemic Heart Disease Brother Cancer Brother melanoma at face Social History Tobacco Use Smoking status: Never Smokeless tobacco: Never Vaping Use Vaping Use: Never used Substance Use Topics Alcohol use: Yes Alcohol/week: 3.0 standard drinks of alcohol Types: 3 Glasses of Wine (5oz) per week Comment: Socially Drug use: No Prior to Admission medications as of 07/03/23923 Medication Sig Last Dose Taking meloxicam (MOBIC) 7.5 mg tablet DAILY Yes methotrexate 2.5 mg tablet TAKE 3 TABLETS ONCE WEEKLY Taking Yes LORazepam (ATIVAN) 0.5 mg Take 1 tablet by mouth daily at bedtime for 90 days. Taking Yes leucovorin (LEUCOVORIN) 5 mg tablet TAKE 1 TABLET EVERY SATURDAY Taking Yes oxybutynin (DITROPAN) 5 mg tablet Take 1 tablet by mouth two times a day. Taking Yes levothyroxine (SYNTHROID) 100 mcg tablet TAKE 1 AND 1/2 TABLETS ON SATURDAY AND SATURDAY ONLY, TAKE 1 TABLET REST OF DAYS Taking Yes hydroCHLOROthiazide 12.5 mg capsule Take 1 capsule by mouth once daily as needed (vertigo). As needed for vertigo Taking Yes abatacept (ORENCIA) 250 mg injection Inject intravenously once every month. Taking Yes rosuvastatin (CRESTOR) 10 mg tablet TAKE 1 TABLET AT BEDTIME Taking Yes aspirin, enteric coated (ASPIRIN, ENTERIC COATED) 81 mg EC tablet Take 1 tablet by mouth twice daily for 27 days. Taking Yes multivitamin tablet Take 1 tablet by mouth once daily. Taking Yes cholecalciferol (VITAMIN D3) 1,000 unit tab Take 1,000 Units by mouth once daily. Taking Yes mupirocin (BACTROBAN) 2 % ointment Apply 0.5 inch with cotton swab (Q-tip) to each nostril in the morning and evening for 5 days prior to and including day of surgery. No medication comments found. ALLERGIES Allergen Reactions Lipitor [Atorvastat* Myalgia Myalgia, lethargic Adhesive Rash bandaids and tape Antiviral Drugs Diarrhea Cipro [Ciprofloxaci* Diarrhea Flagyl [Metronidazo* Diarrhea Ultram [Tramadol Hc* Other: See Comments When taken with celexa, felt like skin was hot and had heart palpitations Objective PHYSICAL EXAM: General: alert and oriented (x3) and healthy appearance. Pertinent negatives noted - not distressed. Skin: normal color, no rash or lesions. HEENT: EOM intact and pupils equal round. Pertinent negatives noted - no carotid bruit. Cardiovascular: regular rate and rhythm, normal S1 and S2, no rub, murmurs, or gallop. Respiratory: normal breath sounds, no wheezes or crackles. No chest wall deformity or tenderness. Abdomen: soft. Pertinent negatives noted - not tender. Extremities: no deformity, no edema or tenderness, no joint swelling or clubbing. Neurological: normal cognition and motor skills. Gait normal. No weakness or sensory deficit. PAIN ASSESSMENT: Pain Pain Level: 5 Pain Location: Knee-Right Description: Aching, Sharp Duration Amount of Time: 1 Duration Units: Years Frequency: Intermittent Intervention/Comfort measure: Medication VITALS: BP 112/72 Pulse 62 Temp (Src) 97.9 (Temporal) Resp 14 Ht 5' 1.5 (1.56m) Wt 130 lb (59.0kg) SpO2 100% BMI 24.17 kg/(m^2). Diagnostic tests reviewed for today's visit: Lab Value Units Date High Low HB 12.9 g/dL 06/22/2023 15.5 11.5 HCT 39.7 % 06/22/2023 46.0 36.0 WBC 5.55 k/uL 06/22/2023 11.00 3.70 PLT 242 k/uL 06/22/2023 400 150 NA No results within date range. K No results within date range. GLUC No results within date range. BUN No results within date range. CREAT 0.73 mg/dL 06/22/2023 0.96 0.58 PTSEC No results within date range. INR No results within date range. APTT No results within date range. ALT 28 U/L 06/22/2023 38 7 AST 34 U/L 06/22/2023 35 13 TBILI 0.8 mg/dL 03/04/2023 1.3 0.2 TSH No results within date range. Lab Value Units Date High Low HCGQT No results within date range. UHCG No results within date range. HCG, BODY* No results within date range. Lab Value Units Date High Low ABORHD No results within date range. ABSCREEN No results within date range. No results found for: HBA1C Recent Results (from the past 8760 hour(s)) ECG COMPLETE Collection Time: 07/03/23 10:32 AM Result Value Ventricular Rate 59 Atrial Rate 59 P-R Interval 190 QRS Duration 92 QT Interval 400 QTC Calculation (Bazett) 396 Calculated P Linden 80 Calculated R Linden 79 Calculated T Linden 72 Impression SINUS BRADYCARDIA OTHERWISE NORMAL ECG No results found for this or any previous visit (from the past 76380 hour(s)). Instructions Given to Patient: Instructions located in the after visit summary. Patient given verbal and written preop instructions and voices comprehension and compliance. SIGNATURE: Victorina Good APRN.CNP PATIENT NAME: [place] Mosquera DATE: July 03, 2023 TIME: 9:31 AM PAGER/CONTACT #: documented in this encounter [facility] 07-03-2023 Instructions Victorina Good APRN.CNP - 07/03/2023 9:28 AM EST PATIENT PREOPERATIVE INSTRUCTIONS Sabina Jefferson MD has scheduled you for your procedure at this surgery center: [facility]: [phone] -- [address] [facility] [address]. Please read below carefully for your personalized instructions. Dietary Restrictions: - No solid food after midnight. - You may have 12 ounces of clear liquids (water, clear juices such as apple juice or gatorade, carbonated beverages, clear tea, black coffee, jello) until 2 hours before scheduled arrival at facility. No red/purple coloring and no creamer/sugar Medications: Unless instructed differently below, stay on all of your medications until your surgery. If you start any new medications after today's visit, please contact your surgeon. Pre-Surgery Med Instructions Medication Instructions methotrexate 2.5 mg tablet CONTACT PRESCRIBER LORazepam (ATIVAN) 0.5 mg IF needed leucovorin (LEUCOVORIN) 5 mg tablet Do not take the day of surgery oxybutynin (DITROPAN) 5 mg tablet Take the day of surgery with a small sip of water levothyroxine (SYNTHROID) 100 mcg tablet Take the day of surgery with a small sip of water hydroCHLOROthiazide 12.5 mg capsule Do not take the day of surgery abatacept (ORENCIA) 250 mg injection Do not take the day of surgery rosuvastatin (CRESTOR) 10 mg tablet Take the day of surgery with a small sip of water aspirin, enteric coated (ASPIRIN, ENTERIC COATED) 81 mg EC tablet Stop 7 days before surgery multivitamin tablet Stop 7 days before surgery cholecalciferol (VITAMIN D3) 1,000 unit tab Stop 7 days before surgery If you start any new medications after today's visit, please contact the surgeon's office. Blood Thinning Medications: - Stop NSAIDS (Ibuprofen, Advil, Aleve, Motrin, Celebrex, Mobic, etc.) 7 days before surgery, as directed by your surgeon. - Stop Aspirin 7 days before surgery, as directed by your surgeon. - Stop Vitamin E, ALL multi-vitamins, herbals and dietary supplements 7 days before surgery. - You may take Tylenol (Acetaminophen) or any of your pain medications that do not contain aspirin or NSAIDS as needed. Important Reminders: - Candy, mints, and tobacco products are NOT permitted the morning of surgery. - Hearing aids, dentures and glasses may be worn the morning of surgery. - NO jewelry, body piercings, makeup, hairpins or contacts are to be worn the day of surgery. If you develop symptoms such as a fever, cold, or flu, or have other changes to your health within TWO DAYS of scheduled surgery or the morning of surgery, please contact the surgery center above. Personal Belongings: -Please have photo ID and insurance cards. -If you do not have a copy of advance directives on file with us, please bring a copy with you on the day of surgery. - Leave ALL valuables and money at home or with family members. For Outpatient Procedures: - YOU MUST HAVE A RESPONSIBLE HOUSING COURT JUDGE TAKE YOU HOME. A MANAGER SIX SIGMA OR MACHINE SHOP APPRENTICE CANNOT BE MADE A RESPONSIBLE HOUSING COURT JUDGE. - We recommend that a responsible person stays with you overnight to take care of you. - You cannot stay in a hotel alone after outpatient surgery. You will not be permitted to have your surgery, if you do not have someone to take care of you. Arrival Time for Surgery: - The Surgery Center or hospital where you are having surgery will call the afternoon before surgery (or Saturday for Saturday surgery) with a scheduled arrival time. - If you have not heard by 4 pm, please contact the surgery center above. Please be aware that emergency situations arise, which may delay or change your surgical time. If this happens, we will notify you as soon as possible and regret any inconvenience. If you already have an Advance Directive, please fax a copy to [phone] or email to for it to be added to your chart. If you do not have an Advance Directive, you can find the appropriate form and more information at [email or web address]. We recommend that you complete the Advance Directive form found on the website and bring it with you the day of your surgery. It can be witnessed and scanned into your chart that day. Victorina Good APRN.DEJAN documented in this encounter [facility] 07-01-2023 Miscellaneous Notes Radiology Service Progress Note PATIENT NAME: [place] Mosquera DATE OF SERVICE: July 01, 2023 TIME: 7:42 AM PATIENT IDENTITY VERIFICATION COMPLETED USING TWO (2) IDENTIFIERS: Name and Date of confirmed by patient verbally and Name and Date of confirmed by identification band. FALL SCREENING: Has the patient had 2 falls in the last year or 1 fall with injury or currently using an Ambulatory Assistive Device (Walker, Cane, Wheelchair, Crutches, etc.)? No PATIENT GENDER DATA: Female. status: : No status: NO. PATIENT RELEVANT IMPLANT DATA REVIEWED: Not Applicable PATIENT PRESENTS WITH AN IMPLANTABLE OR ATTACHED GORE CUTTER: No RADIOLOGY DEPARTMENT: CT; Exam(s) Completed: RT SIMONE KNEE PERIPHERAL IV DATA: Not applicable SIGNED BY: MANDEEP Guerra July 01, 2023 7:42 AM Radiology Service Progress Note PATIENT NAME: [place] Mosquera DATE OF SERVICE: July 01, 2023 TIME: 7:42 AM PATIENT IDENTITY VERIFICATION COMPLETED USING TWO (2) IDENTIFIERS: Name and Date of confirmed by patient verbally and Name and Date of confirmed by identification band. FALL SCREENING: Has the patient had 2 falls in the last year or 1 fall with injury or currently using an Ambulatory Assistive Device (Walker, Cane, Wheelchair, Crutches, etc.)? No PATIENT GENDER DATA: Female. status: : No status: NO. PATIENT RELEVANT IMPLANT DATA REVIEWED: Not Applicable PATIENT PRESENTS WITH AN IMPLANTABLE OR ATTACHED GORE CUTTER: No RADIOLOGY DEPARTMENT: RT SIMONE KNEE PERIPHERAL IV DATA: Not applicable SIGNED BY: MANDEEP Guerra July 01, 2023 7:42 AM documented in this encounter [facility] 06-26-2023 Miscellaneous Notes TOTAL JOINT COMPLETE CARE PROGRAM PRE-OPERATIVE TEACHING Service Date: 06/26/2023 Service Time: 3:16 PM Date of : 1940 Gender: female Date of Surgery: 07/22/23 Procedure: Right Total Knee Replacement Complete Care Program was discussed with the patient: Applications Consultant Identification: Patient identified a career coordinator to help when discharged to home: Home Environment: Home Layout: Ranch, Entry Steps: 2 no rails, Bedroom Location: 1st floor, Bathroom Location: 1st floor, and tub shower. Pt owns walker, cane, raised toilet. Discussed with patient importance of attending joint education class and provided date and times of class: YES declined. Had ELDER in past. Patient received Joint Education Binder: Yes Patient plans discharge home with [facility]. SIGNATURE: GERARD Calderón PATIENT NAME: [place] Mosquera DATE: June 26, 2023 TIME: 7:14 AM documented in this encounter [facility] 05-27-2023 Note HNO ID: [id number] Author: CONTRERAS KRAUSE PT Service: ? Author Type: Physical Therapist Type: Progress Notes Filed: 05/27/2023 23:42 Note Text: Episode Visit Count: 1 Therapist That Will Accept/Oversee The Plan Of Care: Contreras Krause PT Start of Care Date: 05/27/23 Onset Date: 08/25/22 Plan of Care Certification Date: 05/27/23 Next Certification Due Date: 05/27/23 Patient Identified by Name and Date of : Yes REHABILITATION AND SPORTS THERAPY PHYSICAL THERAPY EVALUATION PLAN OF CARE: Assessment: [place] Mosquera presents with diagnosis of R knee pain and DJD that interferes with rising from a chair, stair negotiation, walking in the community . She presents with impairments in ADL's, gait, overall function, and range of motion. PROMIS? (Patient-Reported Outcomes Measurement Information System) scores were reviewed and physical function domain identified as a rehabilitation concern. Prognosis for therapy is Good due to: current objective clinical presentation, positive past response to therapy, good support system/ coping skills, good overall health status. She will benefit from skilled therapy services to meet the goals established for this plan of care as noted below. Goals for Episode of Care: created on 05/27/23 through 05/27/23 No future pre-op visits planned. The only goals were to establish HEP and educate pt on R TKA process. Both of these goals were met. Patient Goals: Be as prepared as possible for surgery in July 2023. Planned Interventions, Frequency, and Duration: Current Frequency: 1 visit Duration: 1 visit Total Number of Visits Planned: 1 Planned Treatment Interventions: Therapeutic exercise (28066), Self-longterm management (51522), Patient/Family/Caregiver Education PLAN FOR NEXT VISIT: No additional pre-op PT visits planned. Pt was educated on the pre-op and post-op process for her upcoming R TKA. All of her questions were answered and she feels adequately prepared because she has had L knee replaced and both hips replaced. She was also provided with a home exercise program that she can perform independently pre-operatively. It was decided to save her insurance benefits for post-op care. Referring provider was notified of this plan. Patient demonstrates good understanding of plan of care and treatment. The above goals and plan of care were discussed and agreed upon by patient/family. SUBJECTIVE: Pt reports intermittent pain in R knee secondary to severe degenerative changes. 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 He is currently in remission and this is the best time for her to get her R TKA since this is inevitable that she will need R TKA. She has had L TKA and B ELDER. She is here today for pre-op planning and strengthening. She reports that she is very familiar with the TKA process since she had her L knee replaced 9 years ago. Patient Goals: Be as prepared as possible for surgery in July 2023. Functional Limitations: rising from a chair, stair negotiation, walking in the community Prior Level of Function: Independent without limitations Relevant History Past Relevant Surgical Conditions: Total Hip Replacement-Right, Total Hip Replacement-Left, Total Knee Replacement-Left Employment: Retired Home Environment Patient Lives With: Spouse Assistance Available: None Home Type: Apt/Condo Entry To Home: Elevator, Stairs Number Of Stairs Into Home: 0 Number Of Stairs To Bed/Bath: 0 Tub/Shower Type: walk in shower with shower chair Laundry: laundry in apartment Equipment Owned: Walker- Wheeled, Shower Chair, Elevated Toilet Seat, Cane Transportation: Car Intake Information: Prescription present Previous Treatment: Injections , NSAIDs Pain: Pain Pain Level: 5 (when it occurs) Pain Location: Knee - Right Description: Sharp Frequency: Intermittent Post Treatment Pain Post Treatment Pain Level: No Change PROMIS Scales Higher is Better 05/27/2023 12/06/2022 11/06/2022 Phys Func - Score 41 (mild dysfunction) 43 (mild dysfunction) 37 (moderate dysfunction) Phys Func - Percentile 18% 24% 10% Self-Eff Symptom - Score 53 (Average) 51 (Average) 49 (Average) Self-Eff Symptom - Percentile 62% 54% 46% T-scores: mean of general population = 50. 5 points is clinically meaningfully difference Percentiles provide an indication of how the patient's score ranks in relation to the general population. Higher percentile rankings indicate better function/quality of life. 50th percentile is the average of the general population and indicates half of respondents had a worse score. OBJECTIVE MEASURES WITH LEVEL OF FUNCTION: LE AROM R LE AROM: supine L LE AROM: supine R Knee Extension: -2 Degrees R Knee Flexion: 135 Degrees L Knee Extension: 2 Degrees L Knee Flexion: 127 Degrees LE Strength R Knee Extension (L3): 5/5 R Kne (more content not included)... [facility] 05-16-2023 Note HNO ID: [id number] Author: SABINA JEFFERSON MD Service: ? Author Type: Physician Type: Progress Notes Filed: 05/16/2023 13:00 Note Text: Orthopaedic Office Note: May 16, 2023 12:57 PM [place] Mosquera 83 year old History: [place] is well-known to me for all of her hip and knee trouble. I replaced her right hip, my previous partner Dr. Jett replaced her left hip and her left knee. She has known severe right knee osteoarthritis. Although it is not terribly painful, it is starting to become more debilitating for her and give way. Her is battling several types of cancer and is just now in remission. As she ages, she has high concerns about not getting her knee taken care of now and being unable to later. She has already exhausted conservative management. Subjective: Right knee dysfunction affecting quality of life Updated ROS: No changes Updated Exam: Right lower Extremity Valgus deformity, partly correctable Tender palpation lateral joint line, medial joint line Painful patellar crepitance Stable ligamentous exam Range of motion 5 to 120 degrees Full strength and sensation Updated Imaging: Severe right knee osteoarthritis Assessment and Plan: We have discussed risks and benefits of surgery along length today. She has severe arthritis of the right knee. Her pain is not severe yet, and I did discuss with her that sometimes that can portend a slightly more difficult recovery process as there will be postoperative pain. However she is starting to have issues with instability, and from a timing standpoint this may be one of her only opportunities to get this taken care of with her 's health problems. All risks and benefits have been discussed. She wishes to proceed. Informed consent has been signed. She will stay overnight. I spent a total of approximately 25 minutes on the date of the service which included preparing to see the patient, [id number] patient care, completing clinical documentation, obtaining and/or reviewing separately obtained history, performing a medically appropriate examination, counseling and educating the patient/family/caregiver, ordering medications, tests, or procedures, independently interpreting results (not separately reported), communicating results to the patient/family/caregiver, and care coordination (not separately reported). Sabina Jefferson MD Orthopaedic Surgery [facility] 04-15-2023 Miscellaneous Notes Synthroid 100 mcg refilled to 04/12/23 to [facility]. Krista Acosta Ma documented in this encounter [facility] 04-12-2023 Miscellaneous Notes The following approved medication requests have been transmitted electronically. Requested Prescriptions Pending Prescriptions Disp Refills levothyroxine (SYNTHROID) 100 mcg tablet 100 tablet 3 Sig: TAKE 1 AND 1/2 TABLETS ON SATURDAY AND SATURDAY ONLY, TAKE 1 TABLET REST OF DAYS Po Delgadillo APRN.EMISSION SPECIALIST Patient has been identified by name and date of : Yes Requested Prescriptions Pending Prescriptions Disp Refills levothyroxine (SYNTHROID) 100 mcg tablet 100 tablet 3 Sig: TAKE 1 AND 1/2 TABLETS ON SATURDAY AND SATURDAY ONLY, TAKE 1 TABLET REST OF DAYS RX INSTRUCTIONS: Patient aware RX will be sent to pharmacy. No need to notify patient. Angelica Holden documented in this encounter [facility] 03-11-2023 Miscellaneous Notes rx sent Patient has been identified by name and date of : Yes RX INSTRUCTIONS: Patient aware RX will be sent to pharmacy. No need to notify patient. LAST APPOINTMENT: 08/08/2022 UPCOMING APPOINTMENT: 07/31/2023 LABS: Hemoglobin (g/dL) Date Value 03/04/2023 12.8 06/22/2021 12.9 Hematocrit (%) Date Value 03/04/2023 38.9 06/22/2021 37.8 WBC (k/uL) Date Value 03/04/2023 5.87 06/22/2021 6.14 Platelet Count (k/uL) Date Value 03/04/2023 218 06/22/2021 199 AST Date Value Ref Range Status 03/04/2023 35 13 - 35 U/L Final ALT Date Value Ref Range Status 03/04/2023 24 7 - 38 U/L Final Creatinine Date Value Ref Range Status 03/04/2023 0.74 0.58 - 0.96 mg/dL Final No results found for: URICACID Inez Browning MA documented in this encounter [facility] 02-08-2023 Miscellaneous Notes The following approved medication requests have been transmitted electronically. Requested Prescriptions Signed Prescriptions Disp Refills LORazepam (ATIVAN) 0.5 mg 30 tablet 2 Sig: Take 1 tablet by mouth daily at bedtime for 90 days. Po Delgadillo APRN.EMISSION SPECIALIST Last OV: 07/12/22 Next OV: None. Was seen acutely for Shingles in November. Last Rx: 09/05/22 #30 w/2. Anu Damico Ma documented in this encounter [facility] 01-10-2023 Miscellaneous Notes Form completed and faxed to information below. Anu Damico Ma Form done Jerry Arnold MD Type of form: Pre-procedure form from [facility] to hold pt's Celebrex and ASA 5 days prior to surgery and 5 days after surgery. Surgery on 01/25/23 for Ptosis Repair Form received via mail When form is completed, Fax form to [phone] Form has been forwarded to Physician Desk: Dr. Clayton Damico Ma documented in this encounter [facility] 12-06-2022 Miscellaneous Notes Addended by: CONTRERAS KRAUSE on: 12/06/2022 02:24 PM Modules accepted: Orders documented in this encounter [facility] 12-06-2022 History of Present illness Narrative Episode Visit Count: 4 Therapist That Will Accept/Oversee The Plan Of Care: Contreras Krause PT Start of Care Date: 11/07/22 Onset Date: 11/07/20 Plan of Care Certification Date: 12/06/22 Next Certification Due Date: 12/06/22 Patient Identified by Name and Date of : Yes REHABILITATION AND SPORTS THERAPY PHYSICAL THERAPY DISCONTINUANCE OF CARE PLAN OF CARE UPDATE: Assessment: [place] Mosquera is discontinued from Physical Therapy services due to goal achievement and maximal benefit. and Patient/Clinician mutual decision to discontinue current plan of care. Patient was seen for 4 visits from Start of Care Date: 11/07/22 to 12/06/2022 and treatment included: Therapeutic exercise, Self-longterm management, Patient/Family/Caregiver Education, Body mechanics training, and General conditioning. Updated: 12/06/22 Goals for Episode of Care: created on 11/07/22 through 12/05/22 Independent in home exercises. - MET Patient will decrease pain rating by 2 points to meet minimal clinical important difference for numeric pain rating scale. - MET Restore pain-free lumbar ROM to WFL to allow for improved bending and rising tolerance. - MET Stand / Walk without limitations, without pain/symptoms. - Partially MET Sleep through night without pain/symptoms. - MET Patient will be able to tolerate standing, bending, rising, stairs and sleeping without increased symptoms. - Partially MET Patient will increase strength of core and postural muscles to WFL to allow for improved position and activity tolerance for basic ADLs. - Partially MET Patient Goals: decrease pain - MET SUBJECTIVE: Patient Reason for Visit: Pt reports that overall she is better with less pain and she is compliant with HEP. She feels confident in her ability to complete HEP indepedently. She reports completing HEP 2x day. She denies any pain currently. She reports that bending and rising are both better but not fully symptom-free. She reports that she is sleeping better with no limitations currently. She reports that standing, walking and stairs are all improved but that walking is not fully normalized. She states that stairs are the biggest improvement. Patient Goals: decrease pain Functional Limitations: standing, bending, rising from a chair, stair negotiation, sleeping Prior Level of Function: Independent without limitations Intake Information: Prescription present Pain: Pain Pain Level: 0 Pain Location: Low Back/Lumbar Spine - Right Description: (no pain to start today) Frequency: Intermittent Post Treatment Pain Post Treatment Pain Level: Better PROMIS Scales Higher is Better 12/06/2022 11/06/2022 10/02/2022 Phys Func - Score 43 (mild dysfunction) 37 (moderate dysfunction) 43 (mild dysfunction) Phys Func - Percentile 24 % 10 % 24 % Self-Eff Symptom - Score 51 (Average) 49 (Average) - Self-Eff Symptom - Percentile 54 % 46 % - T-scores: mean of general population = 50. 5 points is clinically meaningfully difference Percentiles provide an indication of how the patient's score ranks in relation to the general population. Higher percentile rankings indicate better function/quality of life. 50th percentile is the average of the general population and indicates half of respondents had a worse score. OBJECTIVE MEASURES WITH LEVEL OF FUNCTION: Lumbar Spine AROM Lumbar Flexion: Normal Lumbar Extension: Moderate limitation Lumbar R Side-Bend: Normal Lumbar L Side-Bend: Normal Lumbar R Rotation: Normal Lumbar L Rotation: Normal LE Strength Trunk Strength: improving Gait Gait Observation: much improved and normalized without antalgic appearance. TREATMENT: Therapeutic Exercise: 1: [employer] StepOne seat #10 x6 minutes (Pt provided an update on her condition and therapist evaluated subjective portion of goals.) 2: supine B SKTC 3x30 seconds 3: supine DKTC 3x30 seconds. 4: supine isometric abdominal exercise via shoulder extension 2 second holds reviewed for HEP 5: *Supine PPT with alt marching 2x10 B 6: supine crunches in small range reviewed but she has decided to defer this secondary to neck pain 7: HEP was thoroughly reviewed and continuation encouraged to tolerance. 8: Re-assessment results were shared with patient and used as rationale for proposed d/c recommendation. Skilled Intervention: Patient was educated in proper exercise technique and purpose for exercises. Reviewed and educated patient on additions/changes for home exercise program as above (*). Skilled judgment was provided in selection of appropriate interventions. Correct performance of therapeutic exercises was facilitated with verbal, visual, and tactile cuing. Patient education as noted. Billing Therapeutic Exercise Treatment Minutes: 30 Total Treatment Time Minutes (timed/untimed): 30 Session Start Time : 1055 Session Stop Time : 1125 Contreras Krause PT documented in this encounter [facility] 11-29-2022 History of Present illness Narrative Chief Complaint Patient presents with: Rash: Forehead X 1 day HPI [place] Mosquera is a 82 year old female who presents here today for Above Complaints.. Patient presents for facial rash and pain. Patient reports she started having right side facial and ear pain. Today she woke up to a rash on her forehead. Patient reports rash is painful to touch. Past medical history, appointments, medications, allergies reviewed. 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 Blaine Duron Unspecified hypothyroidism Urge incontinence 2009 Urgency of urination 2009 Vertigo Previous Surgical History PAST SURGICAL HISTORY Procedure Laterality Date ANESTH DIAGNOSTIC ARTHROSCOPIC PROC KNEE JOINT right ARTHRP ACETBLR/PROX FEM PROSTC AGRFT/ALGRFT Left 01/02/2016 Hip replacement, total BIOPSY BREAST OPEN INCISIONAL Bx of breast, incisional BREAST BIOPSY CORE 07/13/2006 U/S needle core upper mid right breast CARPAL TUNNEL 09/2010 Dr Tello CHOLECYSTECTOMY lap COLECTOMY PARTIAL W/ANASTOMOSIS 11/2007 Laparoscopic Sigmoid colectomy for diverticulitis COLONOSCOPY FLX DX W/COLLJ SPEC WHEN PFRMD 03/12/2002 Colonoscopy COLONOSCOPY FLX DX W/COLLJ SPEC WHEN PFRMD 01/21/2009 Colonoscopy; Stricture dilated at colectomy site IMPLANT MESH OPN HERNIA RPR/DEBRIDEMENT CLOSURE 04/02/2011 PAST SURGICAL HISTORY OF 10/01/2006 LARISA PROCEDURE DONE ON FACE FOR SQUAMEOUS CELL CA, PAST SURGICAL HISTORY OF 03/2007 Removal of squamous cell carcinoma from clavicle and left leg by PAST SURGICAL HISTORY OF 04/19/2004 excision from R ear PAST SURGICAL HISTORY OF 06/11/2007 cystoscopy/retrograde PAST SURGICAL HISTORY OF 03/2013 titanium plate removed from left thumb PAST SURGICAL HISTORY OF 11/2014 laminectomy PAST SURGICAL HISTORY OF Left 05/16/2015 Total Left Knee PAST SURGICAL HISTORY OF 07/2015 laminectomy PAST SURGICAL HISTORY OF Right 09/16/2018 MOHS procedure, right cheek - [facility] [place] REPAIR FIRST ABDOMINAL WALL HERNIA 04/02/2011 SIGMOIDOSCOPY FLX DX W/COLLJ SPEC BR/WA IF PFRMD 06/01/2010 TOTAL HIP REPLACEMENT Right 02/13/2021 Family History FAMILY HISTORY Problem Relation Age of Onset Cervical Cancer Mother Ischemic Heart Disease Father Heart Sister Breast Cancer Paternal Grandmother Hypertension Sister Stroke Sister Breast Cancer Sister 2009at 73 Hypertension Brother Ischemic Heart Disease Brother Cancer Brother melanoma at face Patient Allergies ALLERGIES Allergen Reactions Lipitor [Atorvastat* Myalgia Myalgia, lethargic Adhesive Rash bandaids and tape Antiviral Drugs Diarrhea Cipro [Ciprofloxaci* Diarrhea Flagyl [Metronidazo* Diarrhea Ultram [Tramadol Hc* Other: See Comments When taken with celexa, felt like skin was hot and had heart palpitations Current Medications Current Outpatient Medications on File Prior to Visit Medication Sig hydroCHLOROthiazide 12.5 mg capsule Take 1 capsule by mouth once daily as needed (vertigo). As needed for vertigo celecoxib (CELEBREX) 200 mg capsule Take 1 capsule by mouth twice daily. Take this directly following a meal abatacept (ORENCIA) 250 mg injection Inject intravenously once every month. LORazepam (ATIVAN) 0.5 mg daily at bedtime. methylPREDNISolone (MEDROL, MADIHA,) 4 mg Dose-Pack As Instructed per package (Patient not taking: Reported on 09/20/2022) aspirin, enteric coated (ASPIRIN, ENTERIC COATED) 81 mg EC tablet Take 81 mg by mouth once daily. methotrexate 2.5 mg tablet Take 4 tablets by mouth one time a week. oxybutynin (DITROPAN) 5 mg tablet Take 1 tablet by mouth once daily. rosuvastatin (CRESTOR) 10 mg tablet TAKE 1 TABLET AT BEDTIME levothyroxine (SYNTHROID) 100 mcg tablet TAKE 1 AND 1/2 TABLETS ON SATURDAY AND SATURDAY ONLY, TAKE 1 TABLET REST OF DAYS leucovorin (LEUCOVORIN) 5 mg tablet Take 1 tablet by mouth every Saturday. aspirin, enteric coated (ASPIRIN, ENTERIC COATED) 81 mg EC tablet Take 1 tablet by mouth twice daily for 27 days. multivitamin tablet Take 1 tablet by mouth once daily. cholecalciferol (VITAMIN D3) 1,000 unit tab Take 1,000 Units by mouth once daily. No current facility-administered medications on file prior to visit. Social History Social History Tobacco Use Smoking status: Never Smokeless tobacco: Never Substance Use Topics Alcohol use: Yes Alcohol/week: 7.5 standard drinks of alcohol Types: 3 Glasses of Wine (5oz) per week Comment: Socially Drug use: No Review of Symptoms REVIEW OF SYSTEMS SEE HPI EXAM: BP 146/82 Pulse 64 Resp 12 Wt 55.3 kg (122 lb) BMI 22.31 kg/m General Appearance: Well appearing, alert, in no acute distress, well-hydrated, well nourished.. Skin: Positives: Rash: raised blistery rash to forehead and left eyelid, tender with palpation. Health Maintenance List SHINGRIX VACCINE(1 of 2) Never done ADVANCE DIRECTIVE DISCUSSION Never done INFLUENZA(1) due on 01/11/2023 DTAP,TDAP,TD(2 - Td or Tdap) due on 12/01/2023 DIABETES SCREEN due on 07/25/2025 BONE DENSITY Completed DEPRESSION ASSESSMENT Completed COVID-19 VACCINE Completed PNEUMOCOCCAL: 65+ Completed HPV VACCINE Aged Out COLONOSCOPY Discontinued ASSESSMENT/PLAN: 1. Herpes zoster without complication - ICD9: 053.9, ICD10: B02.9 - VALACYCLOVIR 1 GRAM TABLET -Due to location recommended to patient making an appointment with her eye doctor. Sasha Pollock APRN.EMISSION SPECIALIST documented in this encounter [facility] 11-19-2022 History of Present illness Narrative Episode Visit Count: 3 Therapist That Will Accept/Oversee The Plan Of Care: Contreras Krause PT Start of Care Date: 11/07/22 Onset Date: 11/07/20 (chronic pain with prolonged standing, aggravated 5 months ago and has fluctuated since onset) Plan of Care Certification Date: 11/07/22 Next Certification Due Date: 12/05/22 Patient Identified by Name and Date of : Yes REHABILITATION AND SPORTS THERAPY PHYSICAL THERAPY TREATMENT NOTE ASSESSMENT: [place] Mosquera tolerated the session with fatigue and no issues. She demonstrated difficulty with Ppt with walkouts. The patient will continue to benefit from ongoing skilled physical therapy to progress toward set goals. PLAN FOR NEXT VISIT: Progress core strengthening. Continue with postural stretching and strengthening. SUBJECTIVE: Patient Reason for Visit: Pt reports that things are better compared to last visit. Pt reports that doing laundry and bending over nad pulling things up is not easy. Pt does not have triggering pain like she did have. Pain: Pain Pain Level: 4 Pain Location: Low Back/Lumbar Spine - Right Description: Sharp Post Treatment Pain Post Treatment Pain Level: Better Post Treatment Pain Location: Low Back/Lumbar Spine - Right OBJECTIVE MEASURES WITH LEVEL OF FUNCTION: TREATMENT: Therapeutic Exercise: 1: [employer]Fit StepOne seat #10 x6 minutes (Pt provided an update on her condition and therap) 2: supine B SKTC 3x30 seconds 3: supine DKTC 3x30 seconds. 4: supine posterior pelvic tilts 2x10 5: Supine PPT with alt marching 2x10 B 6: supine crunches in small range 2x10 7: Supine PPT with altr walkouts 2x5 B 8: Seated GTB perturbations at edge of table 3x15 each direction 9: Scapular retractions 2x10 Skilled Intervention: Patient was educated in proper exercise technique and purpose for exercises. Skilled judgment was provided in selection of appropriate interventions. Correct performance of therapeutic exercises was facilitated with verbal and visual cuing. Billing Therapeutic Exercise Treatment Minutes: 43 Total Treatment Time Minutes (timed/untimed): 43 GIANCARLO Tilley PT documented in this encounter [facility] 11-15-2022 History of Present illness Narrative Episode Visit Count: 2 Therapist That Will Accept/Oversee The Plan Of Care: Contreras Krause PT Start of Care Date: 11/07/22 Onset Date: 11/07/20 (chronic pain with prolonged standing, aggravated 5 months ago and has fluctuated since onset) Plan of Care Certification Date: 11/07/22 Next Certification Due Date: 12/05/22 Patient Identified by Name and Date of : Yes REHABILITATION AND SPORTS THERAPY PHYSICAL THERAPY TREATMENT NOTE ASSESSMENT: [place] oMsquera tolerated the session with decreased symptoms. She demonstrated improvements in pain, exercise tolerance and transfer ability. The patient will continue to benefit from ongoing skilled physical therapy to progress toward set goals. PLAN FOR NEXT VISIT: Continue with postural stretching and strengthening therex with strict flexion directional preference. Progress therex to tolerance. No manual belt traction secondary B ELDER SUBJECTIVE: Patient Reason for Visit: Pt reports that overall she is feeling better since starting PT. She reports compliance with HEP 2-3x day and she attributes her improvements to HEP. She reports that pain is less often but intensity can still have the same severity. She reports that bed transfers and rising are still painful and she asked for advice on bed mobility and transfer technique. Pain: Pain Pain Level: 7 (but only with rising today) Pain Location: Low Back/Lumbar Spine - Right Description: Sharp Frequency: Intermittent (rising and bed mobility) Post Treatment Pain Post Treatment Pain Level: Better Post Treatment Pain Location: Low Back/Lumbar Spine - Right Post Treatment Pain Description: (0/10 after) Post Treatment Symptoms: After session, pt reported that she felt better and had no pain. She also reported that new transfer technique taught today made it significantly less painful. OBJECTIVE MEASURES WITH LEVEL OF FUNCTION: Posture / Alignment Lumbo - Pelvic Alignment: In supine: L ASIS is higher than R but no LLD functionally. When measured, L LE is 1 cm longer than R. This can all be attributed to lumbar scoliosis. TREATMENT: Therapeutic Exercise: 1: [employer] StepOne seat #10 x6 minutes (Pt provided an update on her condition and therapist provided explanation of plan of care options.) 2: supine B SKTC 3x30 seconds 3: supine DKTC 3x30 seconds. 4: *supine LTR 2x10 in pain-free range 5: *supine isometric abdominal exercise via shoulder extension 2 second holds 2x10 6: *supine posterior pelvic tilts 2x10 7: *supine crunches in small range 2x10 8: HEP was reviewed corrected and she was reminded to stop any exercise or activity that causes increased pain. Skilled Intervention: Patient was educated in proper exercise technique and purpose for exercises. Reviewed and educated patient on additions/changes for home exercise program as above (*). Skilled judgment was provided in selection of appropriate interventions. Provided written instruction for home exercise program to facilitate proper performance and compliance. Correct performance of therapeutic exercises was facilitated with verbal, visual, and tactile cuing. Patient education as noted. Self-[facility] Management: 1: Pt was educated on anatomy of lumbar spine, hips and pelvic. Her old x-rays were reviewed and explained. Her lumbopelvic alignment assessed and findings explained to her that this is related to scoliosis and not likely contributing to her pain. Her lack of functional leg length difference was also explained. A model of the spine was used to educate her on anatomy and rationale for all recommendations regarding her directional preference and functional limitations. All of her questions regarding transfer techanique and bed mobility were answered. She practiced applying these principles several times and therapist provided verbal cues throughout. Skilled Intervention: Skilled judgment in the selection of proper modification for activity of daily living/home management based on clinical presentation, deficits, and needs. Reviewed patient specific diagnosis in relation to activities of daily living/home management. Billing Therapeutic Exercise Treatment Minutes: 30 Self-Care/Home Management Treatment Minutes: 15 Total Treatment Time Minutes (timed/untimed): 45 Contreras Krause PT documented in this encounter [facility] 11-07-2022 History of Present illness Narrative Episode Visit Count: 1 Therapist That Will Accept/Oversee The Plan Of Care: Contreras Krause PT Start of Care Date: 11/07/22 Onset Date: 11/07/20 (chronic pain with prolonged standing, aggravated 5 months ago and has fluctuated since onset) Plan of Care Certification Date: 11/07/22 Next Certification Due Date: 12/05/22 Patient Identified by Name and Date of : Yes REHABILITATION AND SPORTS THERAPY PHYSICAL THERAPY EVALUATION PLAN OF CARE: Assessment: [place] Mosquera presents with chief complaint of R low back pain that at times is B low back and down into B hips that interferes with standing, bending, rising from a chair, stair negotiation, sleeping. She presents with impairments in ADL's, gait, overall function, range of motion, strength, and symptom management. PROMIS (Patient-Reported Outcomes Measurement Information System) scores were reviewed and physical function domain identified as a rehabilitation concern. Prognosis for therapy is Good due to: positive past response to therapy, within-session changes, good support system/ coping skills, current objective clinical presentation. She will benefit from skilled therapy services to meet the goals established for this plan of care as noted below. Classification Low Back Pain Subgroup Classification: Specific exercise subgroup: recommended visits 8. Specific Exercies Subgroup Classification based on: directional preference Goals for Episode of Care: created on 11/07/22 through 12/05/22 Independent in home exercises. Patient will decrease pain rating by 2 points to meet minimal clinical important difference for numeric pain rating scale. Restore pain-free lumbar ROM to WFL to allow for improved bending and rising tolerance. Stand / Walk without limitations, without pain/symptoms. Sleep through night without pain/symptoms. Patient will be able to tolerate standing, bending, rising, stairs and sleeping without increased symptoms. Patient will increase strength of core and postural muscles to WFL to allow for improved position and activity tolerance for basic ADLs. Patient Goals: decrease pain Planned Interventions, Frequency, and Duration: Current Frequency: 2x/week Duration: 4 weeks Total Number of Visits Planned: 8 Planned Treatment Interventions: Therapeutic exercise (34328), Neuromuscular re-education (75694), Manual therapy (97103), Therapeutic activities (83263), Self-longterm management (01443), Gait Training (79029), Patient/Family/Caregiver Education, Body Mechanics Training, Functional training, General Conditioning PLAN FOR NEXT VISIT: Review, correct and progress HEP to tolerance. Focus to be on postural stretching and strengthening with flexion directional preference. Do not consider manual lumbar traction at this time secondary to B ELDER. In previous episodes, pt responded very well to flexion therex. Patient demonstrates good understanding of plan of care and treatment. The above goals and plan of care were discussed and agreed upon by patient/family. SUBJECTIVE: [place] Mosquera is a 82 year old female seen today for intermittent pain in low back and into B hips. This pain varies in intensity, quality, frequency and location. She reports that at times her pain is in lateral B hips and currently pain is consistently in R low back. She reports that currently she is not having the B lateral hip pain, just R low back pain. She reports consistent aggravation of symptoms with bending and rising. Patient Goals: decrease pain Functional Limitations: standing, bending, rising from a chair, stair negotiation, sleeping Prior Level of Function: Independent without limitations Relevant History Employment: Retired Recreation / Current Exercise: Pt reports intermittent SKTC and DKTC stretches that provide consistent relief but she only completes HEP 1x week. Home Environment Patient Lives With: Spouse Home Type: Apt/Condo Entry To Home: Elevator, Stairs Number Of Stairs To Bed/Bath: 0 Intake Information: Prescription present Previous Treatment: Physical Therapy , Surgery , Injections (B ELDER, multiple low back injections and two back surgeries) Falls Interview: No positive findings with falls interview Red Flags Vertebral Fracture Red Flags: Female, Age >70 Vertebral Fracture Clinical Reasoning: Proceed with caution due to the above (1-2) risk factors Abdominal Aortic Aneurysm Clinical Reasoning: No identified risk factors. Cancer Red Flags: Age >50 or <20, History of Cancer (skin cancer) Cancer Clinical Reasoning: Proceed with caution Infection Clinical Reasoning: No identified risk factors. Cauda Equina Syndrome Clinical Reasoning: No identified risk factors. Red Flags - Cervical Cancer Red Flags: Age >50 or <20, History of Cancer (skin cancer) Cancer Clinical Reasoning: Proceed with caution Infection Clinical Reasoning: No identified risk factors. Spine History Symptoms Location at Onset: Back Symptoms Since Onset: Unchanging Pain is Worse Always: Standing, Bending, Rising, Turning Pain is Better Always: Sitting Previous Episodes: Yes Previous Spine Episodes: All previous similar episodes resolved with HEP and PT with flexion directional preference Sleeping Position: Side lying left Sleep Affected by Pain: Pain awakens Pain: Pain Pain Level: 8 (0/10 at rest, 8/10 at worst) Pain Location: Low Back/Lumbar Spine - Right Description: Sharp Frequency: Intermittent, Standing, Walking (rising) Post Treatment Pain Post Treatment Pain Level: No Change Post Treatment Symptoms: Pt did not report any change in symptoms in the short term PROMIS Scales Higher is Better 11/06/2022 10/02/2022 05/01/2022 Phys Func - Score 37 (moderate dysfunction) 43 (mild dysfunction) 42 (mild dysfunction) Phys Func - Percentile 10 % 24 % 21 % Self-Eff Symptom - Score 49 (Average) - - Self-Eff Symptom - Percentile 46 % - - T-scores: mean of general population = 50. 5 points is clinically meaningfully difference Percentiles provide an indication of how the patient's score ranks in relation to the general population. Higher percentile rankings indicate better function/quality of life. 50th percentile is the average of the general population and indicates half of respondents had a worse score. OBJECTIVE MEASURES WITH LEVEL OF FUNCTION: Hip Observations R Hip Palpation Tenderness: No tenderness noted (Trochanteric bursa was NOT painful) L Hip Palpation Tenderness: No tenderness noted (Trochanteric bursa was NOT painful) Sensation - Lower Extremity LE Light Touch Sensation: Grossly Intact Spine Observations R Lumbar Spine Palpation Tenderness: No tenderness noted L Lumbar Spine Palpation Tenderness: No tenderness noted Sensation - Lumbar Sensation: Grossly Intact Lumbar Spine AROM Lumbar Flexion: Minimal limitation (no pain with flexion but rising to upright caused significant pain in low back) Lumbar Extension: Moderate limitation, Increased pain, Produces Lumbar R Side-Bend: Normal Lumbar L Side-Bend: Normal Lumbar R Rotation: Minimal limitation, Produces, Increased pain Lumbar L Rotation: Normal LE Strength Trunk Strength: Pt's previous x-rays, reported chronicity of symptoms and reported functional difficulties all indicate that she will benefit from increased core and postural strength. R LE Strength: No asymmetrical myotomal weakness detected in B LEs at this time L LE Strength: No asymmetrical myotomal weakness detected in B LEs at this time Special Tests - Hip and Spine Hip and Spine Special Tests: SLR Test SLR Test: Right Positive, Left Positive (L SLR actually caused R low back pain) Gait Gait Observation: antalgic Education: Education Learning Preferences: Demonstration, Explanation, Performance, Printed Materials Barriers: None Learning/educational needs: Plan of Care, Home exercise program, Lifestyle changes, Body Mechanics, Gait Training Education Provided: Yes, see treatment interventions for education provided Education Provided To: Patient Education Mode/Type: Demonstration, Explanation/Discussion, Literature/Printed Materials, Performance Response to Education/Teach Back: States/Identifies, Return Demonstration, Requires Review/Additional Education TREATMENT: PT Treatment Interventions: Therapeutic Exercise Evaluation Therapeutic Exercise: 1: Pt was educated extensively on anatomy of hips and lumbar spine, likely source of symptoms and rationale for proposed treatment plan. She was educated on her directional preference and why flexion feels good and extension, especially to end range causes increased pain. Pt was advised to use pain as her guide at all times and to stop any exercise that causes increased pain. 2: LTR was attempted but this caused pain and was stopped. 3: *supine B SKTC 3x30 seconds 4: *supine DKTC 3x30 seconds. Skilled Intervention: Patient was educated in proper exercise technique and purpose for exercises. Reviewed and educated patient on additions/changes for home exercise program as above (*). Skilled judgment was provided in selection of appropriate interventions. Provided written instruction for home exercise program to facilitate proper performance and compliance. Correct performance of therapeutic exercises was facilitated with verbal, visual, and tactile cuing. Patient education as noted. Billing * Evaluation Moderate Complexity: 1 Unit Therapeutic Exercise Treatment Minutes: 15 Total Treatment Time Minutes (timed/untimed): 45 Contreras Krause PT documented in this encounter [facility] 10-29-2022 Miscellaneous Notes Office notes from 10/17/22 visit Celebrex prescribed 10/17/22 I would also have her switch temporarily from her twice a day meloxicam to a once a day Celebrex to see if it would give her any additional relief. If this does not help over the 1 month timeframe, I would have her switch back to her meloxicam therapy. Routing to provider for review documented in this encounter [facility] 10-17-2022 History of Present illness Narrative Images from the original note were not included. Jules Wallace PA-C [facility] [address] [address] 10/17/2022 ASSESSMENT AND PLAN: Assessment : Encounter Diagnosis ICD-10-CM 1. Degeneration of lumbar or lumbosacral intervertebral disc M51.37 XR LUMBAR MOTION 4V AP/LAT/ FLEX/EXT celecoxib (CELEBREX) 200 mg capsule CONSULT TO PHYSICAL THERAPY 2. Lumbar facet arthropathy M47.816 XR LUMBAR MOTION 4V AP/LAT/ FLEX/EXT celecoxib (CELEBREX) 200 mg capsule CONSULT TO PHYSICAL THERAPY 3. Trochanteric bursitis of both hips M70.61 CONSULT TO PHYSICAL THERAPY M70.62 Discussion: Ms. Mosquera is a pleasant 82-year-old female accompanied by her at today's office visit. She is here for evaluation of intermittent chronic bilateral trochanteric bursitis type pain and central lumbosacral pain. She is status post bilateral hip replacements She is also status post 2 microdecompression procedures at L5-S1 the first on the left in 2014 and the second on the right in 2016. Both of these were done by Dr. Aman Leiva. Her back pain is worst when she is bending forward and doing some gardening. The trochanteric bursitis pain bilaterally seems to come and go. She was sent to PT for this but went to 1 visit and did not continue to follow-up. Patient had the impression that she did not need to come back if her symptoms were not bothering her, although the note indicates that she would benefit from continuing PT treatment. EXAM Highlights: She mobilizes slowly from sitting to standing and gait appears to favor the left hip and the right knee somewhat. Balance is diminished She has normal reflexes, sensation as noted below There are some strength deficits and left hip flexion reproduces left groin pain and right knee extension reproduces right knee pain Pain on palpation over lumbosacral junction in the facet areas. She does not have P OP over PSIS. IMAGING: I reviewed her x-rays with her during today's visit. She has had some x-rays of the hips that showed a tiny portion of the lumbosacral junction. There does appear to be appreciable degenerative findings in the spine from what is visible. SUMMARY/PLAN: I think she should go back to PT and have them work a little further with some home exercises and stretches and icing for her greater trochanteric bursitis. I would also have her switch temporarily from her twice a day meloxicam to a once a day Celebrex to see if it would give her any additional relief. If this does not help over the 1 month timeframe, I would have her switch back to her meloxicam therapy. She also could get some updated low back x-rays if symptoms return and bother her. At this point, their symptoms are the worst only when she is actively bending such as when she wants to do some gardening. Trochanteric bursitis symptoms seem to be intermittent so I believe she would be best served by learning some self-treatment measures through physical therapy with icing and stretching rather than oral steroid repetition or localized injections on any kind of a frequent basis. Plan : DIAGNOSTIC TESTING: -X-ray views will be obtained to better evaluate bony structures. -Dynamic plain radiographs of the Lumbar spine are ordered. REFERAL FOR SERVICES: -Physical therapy will be instituted. MEDICATIONS: -See prescribed medication list for this encounter. ACTIVITY RECOMMENDATIONS: -The patient is encouraged to avoid bed rest and maintain normal activity. FOLLOW-UP: -The patient is instructed to return as needed. This document has been created with the use of voice recognition technology. It may contain inaccuracies: (e.g. misspellings, inaccurate syntax or word sense) that have escaped review. Time spent: 40 minutes today with this patient visit. This includes [id number] time, review of chart records regarding conservative care history, spine-pertinent imaging, and communication/care coordination with referring provider, problem-specific history-taking and counseling/education regarding treatment options. cc: No referring provider defined for this encounter. Phone: N/A Fax: Results of consultation to be transmitted via electronic medical record for those providers who practice within [facility] or with access to [employer] via [facility], or via letter. ____ ################################## ################################## #### CHIEF COMPLAINT: Patient is here for the lower back pain and both hips. Has this pain for 10 months now, pain came back after the years. There's no pain at this moment because sitting helps with pain, but when she is walking pain will get up to 2/10. Bending over is painful. Not sleeping well because of the pain. HPI: see Discussion above History of bowel or bladder dysfunction (not IBS or constipation): No History of previous spinal surgery: Yes, performed in [address] Leiva at [facility]. The procedure was a foraminotomy. The first 1 was on the left side at L5-S1, and the second 1 was on the right side at L5-S1. History of spinal fracture: No Work Status: retired NON-OPERATIVE CARE: Medication(s): She has tried the following for relief of her symptoms: Meloxicam Physical Therapy: She has not had physical therapy for her current symptoms. Spinal Injections: She has gotten prior spinal injections. Lumbar epidural steroid injection Other: None Current Outpatient Medications Medication Sig Dispense Refill abatacept (ORENCIA) 250 mg injection Inject intravenously once every month. LORazepam (ATIVAN) 0.5 mg daily at bedtime. aspirin, enteric coated (ASPIRIN, ENTERIC COATED) 81 mg EC tablet Take 81 mg by mouth once daily. methotrexate 2.5 mg tablet Take 4 tablets by mouth one time a week. 48 tablet 0 meloxicam (MOBIC) 7.5 mg tablet TAKE 1 TO 2 TABLETS DAILY WITH FOOD IF NEEDED FOR PAIN 180 tablet 0 oxybutynin (DITROPAN) 5 mg tablet Take 1 tablet by mouth once daily. 90 tablet 3 rosuvastatin (CRESTOR) 10 mg tablet TAKE 1 TABLET AT BEDTIME 90 tablet 3 levothyroxine (SYNTHROID) 100 mcg tablet TAKE 1 AND 1/2 TABLETS ON SATURDAY AND SATURDAY ONLY, TAKE 1 TABLET REST OF DAYS 100 tablet 3 leucovorin (LEUCOVORIN) 5 mg tablet Take 1 tablet by mouth every Saturday. 12 tablet 3 hydroCHLOROthiazide (HYDRODIURIL, ESIDRIX) 12.5 mg capsule Take 1 capsule by mouth once daily as needed (vertigo). As needed for vertigo 90 capsule 3 multivitamin tablet Take 1 tablet by mouth once daily. 100 tablet 3 cholecalciferol (VITAMIN D3) 1,000 unit tab Take 1,000 Units by mouth once daily. methylPREDNISolone (MEDROL, MADIHA,) 4 mg Dose-Pack As Instructed per package (Patient not taking: Reported on 09/20/2022) 21 tablet 0 aspirin, enteric coated (ASPIRIN, ENTERIC COATED) 81 mg EC tablet Take 1 tablet by mouth twice daily for 27 days. 54 tablet 0 No current facility-administered medications for this visit. Allergies: Lipitor [Atorvastatin], Adhesive, Antiviral Drugs, Cipro [Ciprofloxacin], Flagyl [Metronidazole Hcl], and Ultram [Tramadol Hcl] PAST MEDICAL HISTORY Diagnosis Date Benign neoplasm of breast bilat Deep vein thrombosis (DVT) (HCC) Disorder of bone and cartilage, unspecified history of osteopenia Diverticulosis of colon (without mention of hemorrhage) Dyslipidemia Edema Hypertension Internal hemorrhoids without mention of complication Other malignant neoplasm of skin, site unspecified 2006 SCC face,clavicle,left leg-Per Polymyalgia rheumatica (HCC) Resolved 2004 Rheumatoid arthritis (HCC) 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 Blaine Duron Unspecified hypothyroidism Urge incontinence 2009 Urgency of urination 2009 Vertigo PAST SURGICAL HISTORY Procedure Laterality Date ANESTH DIAGNOSTIC ARTHROSCOPIC PROC KNEE JOINT right ARTHRP ACETBLR/PROX FEM PROSTC AGRFT/ALGRFT Left 01/02/2016 Hip replacement, total BIOPSY BREAST OPEN INCISIONAL Bx of breast, incisional BREAST BIOPSY CORE 07/13/2006 U/S needle core upper mid right breast CARPAL TUNNEL 09/2010 Dr Tello CHOLECYSTECTOMY lap COLECTOMY PARTIAL W/ANASTOMOSIS 11/2007 Laparoscopic Sigmoid colectomy for diverticulitis COLONOSCOPY FLX DX W/COLLJ SPEC WHEN PFRMD 03/12/2002 Colonoscopy COLONOSCOPY FLX DX W/COLLJ SPEC WHEN PFRMD 01/21/2009 Colonoscopy; Stricture dilated at colectomy site IMPLANT MESH OPN HERNIA RPR/DEBRIDEMENT CLOSURE 04/02/2011 PAST SURGICAL HISTORY OF 10/01/2006 LARISA PROCEDURE DONE ON FACE FOR SQUAMEOUS CELL CA, PAST SURGICAL HISTORY OF 03/2007 Removal of squamous cell carcinoma from clavicle and left leg by PAST SURGICAL HISTORY OF 04/19/2004 excision from R ear PAST SURGICAL HISTORY OF 06/11/2007 cystoscopy/retrograde PAST SURGICAL HISTORY OF 03/2013 titanium plate removed from left thumb PAST SURGICAL HISTORY OF 11/2014 laminectomy PAST SURGICAL HISTORY OF Left 05/16/2015 Total Left Knee PAST SURGICAL HISTORY OF 07/2015 laminectomy PAST SURGICAL HISTORY OF Right 09/16/2018 MOHS procedure, right cheek - [facility] [place] [facility] REPAIR FIRST ABDOMINAL WALL HERNIA 04/02/2011 SIGMOIDOSCOPY FLX DX W/COLLJ SPEC BR/WA IF PFRMD 06/01/2010 TOTAL HIP REPLACEMENT Right 02/13/2021 Social History Tobacco Use Smoking status: Never Smokeless tobacco: Never Substance Use Topics Alcohol use: Yes Alcohol/week: 7.5 standard drinks Types: 3 Glasses of Wine (5oz) per week Comment: Socially Drug use: No FAMILY HISTORY Problem Relation Age of Onset Cervical Cancer Mother Ischemic Heart Disease Father Heart Sister Breast Cancer Paternal Grandmother Hypertension Sister Stroke Sister Breast Cancer Sister 2009at 73 Hypertension Brother Ischemic Heart Disease Brother Cancer Brother melanoma at face REVIEW OF SYSTEMS: Constitutional: (-) Fever/Chills (-) Night Sweats (-) Weight Gain (-) Weight Loss (-) Fatigue Gastrointestinal: (-) Abdominal Pain (-) Diarrhea (-) Constipation (-) Nausea/Vomiting (-) Heart Burn Cardiovascular: (-) Chest Pain (-) Palpitations (-) Lightheadedness (+) Swelling of Ankles (-) Hx Heart Surgery/Stent Respiratory: (-) Short of Breath (-) Cough (-) Snoring Neurologic: (-) Headache (-) Blurry Vision (-) Fainting Skin: (-) Rashes (-) Itching (-) Other Lesions Psychiatric: (-) Depression (+) Anxiety (-) Suicidal Thoughts Genitourinary: (-) Frequency (+) Urgency Endocrine: (+) Thyroid Disorder (-) Diabetes Hematologic: (-) Prolonged Bleeding (+) Easy Bruising ################################## ################################## ################################## ########################### PHYSICAL EXAM: Blood pressure 165/58, pulse 61, height 157.5 cm (5' 2 ), weight 56.1 kg (123 lb 11.2 oz), SpO2 100 %. Body mass index is 22.63 kg/m . General: Patient is a(n) average historian. The patient appears approximately the recorded age and is sitting comfortably in the examining room. The patient is average height in stature and is slender in appearance. This individual has difficulty arising from a sitting position and does have difficulty acquiring a full, upright position when standing. Station and Gait: favoring the right lower extremity The patient is unable to walk in a tandem gait. MENTAL STATUS EXAMINATION: The patient was neatly dressed and well groomed. The patient had good eye contact and rapport was average to establish. The patient appeared to be alert and oriented in all spheres. The patient's overall medical judgment appeared to be good.The patient's motivation for treatment was judged based on today's encounter to be good. SPINE: Lumbar Lordosis: Decreased/flattened Thoracic Kyphosis: Increased RANGE OF MOTION: Flexion: normal, as expected for age and weight Pain: No Extension: normal, as expected for age and weight Pain: Yes, axial pain Lateral Bending: Right normal, as expected for age and weight Pain: No Left normal, as expected for age and weight Pain: No PALPATION TENDERNESS: Mild tenderness at: lumbar region Hyperesthesia present: No Regional symptoms present: No Increased pain with axial loading: No Distraction: Normal Pain responses: appropriate NEUROLOGIC EXAM: MOTOR: Requires verbal cues to minimize cog-wheel or give-way resistance: No Hip Flexor R: 5/5 L: -4/5 limited by pain in the left groin Hip Abductor R: 5/5 L: 5/5 Hip Adductor R: 5/5 L: 5/5 Knee Extension R: -4/5 limited by pain in the right knee L: 5/5 Foot Dorsiflexion R: 5/5 L: 5/5 Foot Plantar Flexion R: 5/5 L: 5/5 Ext Hallicus Longus R: 5/5 L: 5/5 Toe Extensors R: 5/5 L: 5/5 SENSATION to Light Touch: Lumbar: L2-S1 symmetrically normal. REFLEXES: Lower Extremity: Patella tendon: R: 2+ L: 2+ Achilles tendon: R: 0 L: 0 Clonus: R: 0 beats/Normal L: 0 beats/Normal Babinski Sign: Negative bilaterally. VASCULAR: Skin appearance: Right: Warm/pink Left: Warm/pink Capillary refill: Right: brisk Left: brisk ADDITIONAL MUSCULOSKELETAL EXAM: HIP/PELVIS EXAM: Tenderness over the PSIS: Right: No Left: No Greater Trochanteric pain: Right: Yes Left: Yes Motion restriction: Right: Yes Left: Yes Pain: Right: No Left: Yes SPECIAL TESTS: Straight Leg Raise: negative bilaterally Contralateral Straight Leg Raise: negative bilaterally IMAGING STUDIES: See discussion above documented in this encounter [facility] 10-01-2022 History of Present illness Narrative Radiology Service Progress Note PATIENT NAME: [place] Mosquera DATE OF SERVICE: October 01, 2022 TIME: 9:24 AM PATIENT IDENTITY VERIFICATION COMPLETED USING TWO (2) IDENTIFIERS: Name and Date of confirmed by patient verbally. FALL SCREENING: Has the patient had 2 falls in the last year or 1 fall with injury or currently using an Ambulatory Assistive Device (Walker, Cane, Wheelchair, Crutches, etc.)? No PATIENT GENDER DATA: Female. status: : No status: NO. PATIENT RELEVANT IMPLANT DATA REVIEWED: Not Applicable RADIOLOGY DEPARTMENT: Mammography PERIPHERAL IV DATA: Not applicable SIGNED BY: RT Nancy(R) October 01, 2022 9:24 AM documented in this encounter [facility] 09-20-2022 History of Present illness Narrative Radiology Service Progress Note PATIENT NAME: [place] Mosquera DATE OF SERVICE: September 20, 2022 TIME: 8:37 AM PATIENT IDENTITY VERIFICATION COMPLETED USING TWO (2) IDENTIFIERS: Name and Date of confirmed by patient verbally. FALL SCREENING: Has the patient had 2 falls in the last year or 1 fall with injury or currently using an Ambulatory Assistive Device (Walker, Cane, Wheelchair, Crutches, etc.)? No PATIENT GENDER DATA: Female. status: : No status: NO. PATIENT RELEVANT IMPLANT DATA REVIEWED: Not Applicable RADIOLOGY DEPARTMENT: General X-ray: Exam(s) Completed: Pelvis X-Ray: Pelvis with Hip Right and Wt. Bearing PERIPHERAL IV DATA: Not applicable SIGNED BY: MANDEEP Fonseca September 20, 2022 8:37 AM documented in this encounter [facility] 09-05-2022 Miscellaneous Notes The following approved medication requests have been transmitted electronically. Requested Prescriptions Signed Prescriptions Disp Refills LORazepam (ATIVAN) 0.5 mg 30 tablet 2 Sig: Take 1 tablet by mouth daily at bedtime for 30 days. Karina Aranda APRN.CNP PDMP website checked and validated. All prescriptions have been APPROPRIATELY filled. No suspicious activity was identified. 09/05/2022 by Karina Aranda APRN.CNP documented in this encounter [facility] 08-17-2022 Note IMPRESSION: Progress gisele, advanced tricompartment osteoarthrosis Auto Winder: MURPHY Transcribe Date/Time: Aug 17 2022 7:31A Dictated by : JEANINE SALAZAR MD This examination was interpreted and the report reviewed and electronically signed by: JEANINE SALAZAR MD on Aug 17 2022 7:33AM [facility] 08-16-2022 History of Present illness Narrative Associated Order(s): Large Joint Arthro/Inj: R knee joint Post-Procedure Diagnose(s): Primary osteoarthritis of right knee HPI: [place] Mosquera presents today for right knee cortisone injection. She has known primary osteoarthritis of the right knee. She reports her knee pain has increased over the past couple of weeks. Denies any injury or trauma On exam, the right knee joint is cool to touch without sign of infection. Flexion is limited and is uncomfortable. Crepitation is present with ROM. Large Joint Arthro/Inj: R knee joint Informed Consent Consent Obtained: Verbal [place] Protocol A moment to CARE was completed. SIGN IN Personnel directly involved with the procedure wore the appropriate PPE. Special Equipment: N/A Patient/Surrogate Stated/Verified: Patient name, Date of , Relevant allergies and Intended procedure TIME OUT Intended patient and procedure match the source document(s). Consent documented and matches the intended procedure. Relevant labs, photos, and/or imaging studies have been reviewed. Correct side/site marked and visible. Medications required for procedure verified. Fire risk assessed and interventions discussed. No implant(s) inserted. 08/16/2022 8:53 AM The procedure site was prepped in the usual sterile fashion. Site: R knee joint Medications: 80 mg triamcinolone acetonide 40 mg/mL Anesthetics: 3 mL lidocaine (PF) 10 mg/mL (1 %) Outcome: Tolerated well, no immediate complications Post-injection instructions were reviewed with the patient and the patient voiced understanding of these instructions. SIGN OUT All instruments, equipment, possible retained foreign bodies accounted for. Mando Giron APRN.DEJAN Orthopaedic Surgery documented in this encounter [facility] 08-16-2022 Miscellaneous Notes Radiology Service Progress Note PATIENT NAME: [place] Mosquera DATE OF SERVICE: August 16, 2022 TIME: 8:24 AM PATIENT IDENTITY VERIFICATION COMPLETED USING TWO (2) IDENTIFIERS: Name and Date of confirmed by patient verbally. FALL SCREENING: Has the patient had 2 falls in the last year or 1 fall with injury or currently using an Ambulatory Assistive Device (Walker, Cane, Wheelchair, Crutches, etc.)? No PATIENT GENDER DATA: Female. status: : No status: NO. PATIENT RELEVANT IMPLANT DATA REVIEWED: Not Applicable RADIOLOGY DEPARTMENT: General X-ray: Exam(s) Completed: Lower Extremity X-Ray(s): Knee, AP / Lat / Tunne / Merchant Right PERIPHERAL IV DATA: Not applicable SIGNED BY: RT Delta(R) August 16, 2022 8:24 AM documented in this encounter [facility] 08-16-2022 Progress note Formatting of t his note might be different from the original. Radiology Service Progress Note PATIENT NAME: Indiana Mosquera DATE OF SERVICE: August 16, 2022 TIME: 8:24 AM PATIENT IDENTITY VERIFICATION COMPLETED USING TWO (2) IDENTIFIERS: Name and Date of confirmed by patient verbally. FALL SCREENING: Has the patient had 2 falls in the last year or 1 fall with injury or currently using an Ambulatory Assistive Device (Walker, Cane, Wheelchair, Crutches, etc.)? No PATIENT GENDER DATA: Female. status: : No status: NO. PATIENT RELEVANT IMPLANT DATA REVIEWED: Not Applicable RADIOLOGY DEPARTMENT: General X-ray: Exam(s) Completed: Lower Extremity X-Ray(s): Knee, AP / Lat / Tunne / Merchant Right PERIPHERAL IV DATA: Not applicable SIGNED BY: RT Delta(R) August 16, 2022 8:24 AM [facility] 08-15-2022 Miscellaneous Notes Patient has been scheduled. Left VM and sent [facility] Patient calling in. She would like an appointment with either Rob or Dr. Jefferson for a cortisone injection in her right knee. I don't see where she has had any recent x-rays or any recent injections. Please confirm that this is indeed what she wants an injection of and we may need to get x-rays first. She can see either Rob or Dr. Jefferson. She can be reached at [phone]. Earline Plummer Sedc documented in this encounter [facility] 08-13-2022 Miscellaneous Notes Pt scheduled 09/17. Walker/Onco PSR Please contact patient and assist with scheduling. Route back when completed. Thanks, Inez Browning MA ----- Message from Vern Rico MD sent at 08/10/2022 2:45 PM EDT ----- Please call to schedule reclast on or after 09/14/22. No need to route back to me. Thanks. documented in this encounter [facility] 07-31-2022 Miscellaneous Notes The following approved medication requests have been transmitted electronically. Requested Prescriptions Pending Prescriptions Disp Refills rosuvastatin (CRESTOR) 10 mg tablet [Pharmacy Med Name: ROSUVASTATIN TAB 10MG] 90 tablet 3 Sig: TAKE 1 TABLET AT BEDTIME Po Delgadillo APRN.CNP Patient has been identified by name and date of : Yes, Provider Dr. Arnold Date 07/31/22 Time 8:03 am Pharmacy phones for refill(s): Requested Prescriptions Pending Prescriptions Disp Refills rosuvastatin (CRESTOR) 10 mg tablet [Pharmacy Med Name: ROSUVASTATIN TAB 10MG] 90 tablet 3 Sig: TAKE 1 TABLET AT BEDTIME Date of last office visit in primary care: 07/12/22 Last 2 Encounter Wt Readings: Date: Wt: 07/12/2022 56.7 kg (125 lb) 07/04/2022 56.2 kg (124 lb) Previous labs/tests for medication: Cholesterol: HDL Cholesterol (mg/dL) Date Value 01/06/2021 48 HDL Cholesterol, Nonfasting (mg/dL) Date Value 07/25/2022 52 LDL Cholesterol (mg/dL) Date Value 01/06/2021 46 LDL Cholesterol, Nonfasting (mg/dL) Date Value 07/25/2022 50 ALT (U/L) Date Value 07/25/2022 21 06/22/2021 17 Non HDL Cholesterol, Nonfasting (mg/dL) Date Value 07/25/2022 57 Non HDL Cholesterol (mg/dL) Date Value 01/06/2021 51 Thank you. Devora Munoz LPN documented in this encounter [facility] 07-26-2022 Miscellaneous Notes Pt notified of results via [employer]. Krista Acosta Ma Can you please call the patient and let her know that I reviewed her lab results. Labs were all relatively normal. I would recommend that she continue to eat a well-balanced diet, get some form of exercise, and stay well-hydrated throughout the day. No further testing is needed at this time. Please let me know if she has any questions. Thank you. Karina Aranda APRN.CNP documented in this encounter [facility] 07-12-2022 Instructions Karina Aranda APRN.CNP - 07/12/2022 8:54 AM EST Get labs completed Continue to take all medications as prescribed. Keep scheduled appointments with Rheumatology and dermatology. Follow up in 1 year or sooner as needed. Due for mammogram 10/01/2022 documented in this encounter [facility] 07-12-2022 History of Present illness Narrative This is a 82 year old female who presents today with: Patient presents with: Follow Up HISTORY OF PRESENT ILLNESS: Indiana Mosquera is a 82 year old female. Patient presents with: Follow Up Here in the office for follow up. Lower Leg Swelling: Taking hydrochlorothiazide 12.5 [address] Dr. Alfaro in Vascular Surgery. Had laser therapy completed for Thyroid: Taking Synthroid 100 mcg daily. Denies any difficulty swallowing or cold/heat intolerances Rheumatology: History of RA. Following with rheumatology, Dr. Rico. Follow up every 6 months. Taking methotrexate 2.5 mg, 4 tablets once weekly and Arencia infusion. Lipids/TIA: History of TIA. Taking Crestor 10 mg daily. Watching diet. Tolerating medication well, denies any myalgias/leg pain. Due for labs. Sleep/Anxiety: Has been taking Ativan 0.5 mg BID as needed. Refers medication is helpful with sleep and over thinking at bedtime. Urinary: Taking Ditropan 5 mg daily for incontinence/urgency. Skin Cancer: Follow with dermatology every 6 months. Would like to continue with mammogram screening. 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 Blaine Duron Unspecified hypothyroidism Urge incontinence 2009 Urgency of urination 2009 Vertigo PAST SURGICAL HISTORY Procedure Laterality Date ANESTH DIAGNOSTIC ARTHROSCOPIC PROC KNEE JOINT right ARTHRP ACETBLR/PROX FEM PROSTC AGRFT/ALGRFT Left 01/02/2016 Hip replacement, total BIOPSY BREAST OPEN INCISIONAL Bx of breast, incisional BREAST BIOPSY CORE 07/13/2006 U/S needle core upper mid right breast CARPAL TUNNEL 09/2010 Dr Tello CHOLECYSTECTOMY lap COLECTOMY PARTIAL W/ANASTOMOSIS 11/2007 Laparoscopic Sigmoid colectomy for diverticulitis COLONOSCOPY FLX DX W/COLLJ SPEC WHEN PFRMD 03/12/2002 Colonoscopy COLONOSCOPY FLX DX W/COLLJ SPEC WHEN PFRMD 01/21/2009 Colonoscopy; Stricture dilated at colectomy site IMPLANT MESH OPN HERNIA RPR/DEBRIDEMENT CLOSURE 04/02/2011 PAST SURGICAL HISTORY OF 10/01/2006 LARISA PROCEDURE DONE ON FACE FOR SQUAMEOUS CELL CA, PAST SURGICAL HISTORY OF 03/2007 Removal of squamous cell carcinoma from clavicle and left leg by PAST SURGICAL HISTORY OF 04/19/2004 excision from R ear PAST SURGICAL HISTORY OF 06/11/2007 cystoscopy/retrograde PAST SURGICAL HISTORY OF 03/2013 titanium plate removed from left thumb PAST SURGICAL HISTORY OF 11/2014 laminectomy PAST SURGICAL HISTORY OF Left 05/16/2015 Total Left Knee PAST SURGICAL HISTORY OF 07/2015 laminectomy PAST SURGICAL HISTORY OF Right 09/16/2018 MOHS procedure, right cheek - [facility] REPAIR FIRST ABDOMINAL WALL HERNIA 04/02/2011 SIGMOIDOSCOPY FLX DX W/COLLJ SPEC BR/WA IF PFRMD 06/01/2010 TOTAL HIP REPLACEMENT Right 02/13/2021 ALLERGIES Lipitor [Atorvastatin], Adhesive, Antiviral Drugs, Cipro [Ciprofloxacin], Flagyl [Metronidazole Hcl], and Ultram [Tramadol Hcl] MEDICATIONS Current Outpatient Medications Medication Sig levothyroxine (SYNTHROID) 100 mcg tablet TAKE 1 AND 1/2 TABLETS ON SATURDAY AND SATURDAY ONLY, TAKE 1 TABLET REST OF DAYS methotrexate 2.5 mg tablet Take 4 tablets by mouth one time a week. leucovorin (LEUCOVORIN) 5 mg tablet Take 1 tablet by mouth every Saturday. hydroCHLOROthiazide (HYDRODIURIL, ESIDRIX) 12.5 mg capsule Take 1 capsule by mouth once daily as needed (vertigo). As needed for vertigo meloxicam (MOBIC) 7.5 mg tablet TAKE 1 TO 2 TABLETS DAILY WITH FOOD IF NEEDED FOR PAIN rosuvastatin (CRESTOR) 10 mg tablet Take 1 tablet by mouth daily at bedtime. oxybutynin (DITROPAN) 5 mg tablet Take 1 tablet by mouth once daily. aspirin, enteric coated (ASPIRIN, ENTERIC COATED) 81 mg EC tablet Take 1 tablet by mouth twice daily for 27 days. multivitamin tablet Take 1 tablet by mouth once daily. cholecalciferol (VITAMIN D3) 1,000 unit tab Take 1,000 Units by mouth once daily. No current facility-administered medications for this visit. FAMILY HISTORY Problem Relation Age of Onset Cervical Cancer Mother Ischemic Heart Disease Father Heart Sister Breast Cancer Paternal Grandmother Hypertension Sister Stroke Sister Breast Cancer Sister 2009at 73 Hypertension Brother Ischemic Heart Disease Brother Cancer Brother melanoma at face Social History Tobacco Use Smoking status: Never Smokeless tobacco: Never Substance Use Topics Alcohol use: Yes Alcohol/week: 7.5 standard drinks Types: 3 Glasses of Wine (5oz) per week Comment: Socially Drug use: No REVIEW OF SYSTEMS GENERAL: No weight loss, malaise or fevers/chills HEENT: Negative for frequent or significant headaches, No changes in hearing or vision. NECK: Negative for lumps, goiter, pain and significant neck swelling RESPIRATORY: Negative for cough, hemoptysis, wheezing, dyspnea or shortness of breath CARDIOVASCULAR: Negative for chest pain, leg swelling, orthopnea, or palpitations GI: No nausea, vomiting, or diarrhea/constipation. No hematochezia/melena. No heartburn or reflux symptoms. : No history of dysuria, frequency or incontinence MUSCULOSKELETAL: Negative for joint pain or swelling. SKIN: Negative for lesions, rash, and itching ENDOCRINE: Negative for cold or heat intolerance, polyuria, polydipsia and goiter NEURO: No history of headaches, syncope, paralysis, seizures or tremors MOOD: Negative for depression, anxiety, or suicidal ideation. EXAM: BP 160/80 Pulse (!) 44 Resp 16 Ht 156.5 cm (5' 1.61 ) Wt 56.7 kg (125 lb) SpO2 95% BMI 23.15 kg/m PHYSICAL EXAM: General Appearance: Well appearing, alert, in no acute distress, well-hydrated, well nourished. Skin: Skin color, texture, turgor normal, no suspicious rashes or lesions. Head: Normocephalic, no masses, lesions, tenderness or abnormalities. Eyes: Anicteric sclera. Extraocular movements are intact. Neck: Supple, no adenopathy; thyroid symmetric, normal size, no bruits. Lungs: Lungs clear to auscultation. No wheezing, rhonchi, rales. Heart: RRR without murmur, gallop, or rubs. No ectopy. Extremities: No deformities, edema, skin discoloration, clubbing or cyanosis. Good capillary refill. Peripheral Pulses: Normal, Capillary refill <2secs, strong peripheral pulses, Pulses palpable. Neurologic: Gait normal. Sensation grossly intact. PDMP website checked and validated. All prescriptions have been APPROPRIATELY filled. No suspicious activity was identified. 07/12/2022 by Karina Aranda APRN.EMISSION SPECIALIST ASSESSMENT/PLAN: 1. Acquired hypothyroidism - ICD9: 244.9, ICD10: E03.9 (primary diagnosis) - Instructed patient on importance of taking on an empty stomach either first thing in the morning or at bedtime. Stable - Continue current medications - TSH BLD 2. Mixed hyperlipidemia - ICD9: 272.2, ICD10: E78.2 - to be determined upon return of lab results - Continue current medication. - COMP METABOLIC PANEL - LIPID PANEL, NONFASTING 3. Venous insufficiency - ICD9: 459.81, ICD10: I87.2 - Continue with HCTZ - Keep scheduled appointments with Vascular. 4. Primary insomnia - ICD9: 307.42, ICD10: F51.01 - Continue with Ativan as needed. 5. Anxiousness - ICD9: 300.00, ICD10: F41.9 - LORAZEPAM 0.5 MG TABLET 6. History of rheumatoid arthritis - ICD9: V13.4, ICD10: Z87.39 - Continue with current medications - Keep scheduled appointments with Rheumatology. 7. Urgency of urination - ICD9: 788.63, ICD10: R39.15 - Continue with Ditropan. 8. Encounter for screening mammogram for malignant neoplasm of breast - ICD9: V76.12, ICD10: Z12.31 - PAMELA SCREENING 9. Malignant neoplasm of skin - ICD9: 173.90, ICD10: C44.90 - Keep scheduled appointments with dermatology. 10. TIA (transient ischemic attack) - ICD9: 435.9, ICD10: G45.9 - Continue on Crestor Follow up in 1 year or sooner as needed. Discussed treatment plan and patient voices understanding. Patient's questions answered appropriately. Medications and potential side effects were discussed and patient voices understanding. Karina Aranda APRN.EMISSION SPECIALIST This note was partially generated using [employer] recognition system. Note was reviewed for accuracy. There may be minor misspellings or grammar miscues with [employer] voice recognition. documented in this encounter [facility] 05-02-2022 History of Present illness Narrative Follow-up [facility] Rheumatology appointment for seropositive RA. HPI: To review, Indiana Mosquera is a 82 year old female - In , written for fosamax weekly - In Dec, diagnosed with seropositive RA. Started on MTX. Confirmatory Hep B surface antigen negative and hep B core ab negative. Discussed with Dr. Beatriz Connors, findings therefore not consistent with hepatitis B infection - In May, started enbrel - In November, enbrel stopped and humira started - In Feb, humira stopped and orencia SC started - In , switched from orencia SC to IV - In Mar, saw Dr. Miller. Reported doing well. Reported less aching with doing GF diet. Due to lymphopenia, advised to reduce MTX dose to 10mg weekly - On 08/19/19, received orencia - In August, reported some increased aching due to the stress of the pandemic, which had actually been leveling off. - In Feb, had reclast infusion. Had 2 days of pain following the infusion - In Feb, had a hip replacement. Surgeon was pounding on the femur and it split. - In Jun, reported feeling pretty good. - in 06/2021, reports feeling well. No hx of fracture - No jaw pain. Had a tooth extracted 6-7 weeks ago - with lymphoma getting a liver biopsy next month - Takes mobic in past, on average 1 tab/day with relief. Has tried to avoid use but needs it daily, sometimes every other day if eating GF - Has tried tylenol 1300mg at a time which doesn't help baseline joint pain PAST MEDICAL HISTORY Diagnosis Date Benign neoplasm of breast bilat Deep vein thrombosis (DVT) (HCC) Disorder of bone and cartilage, unspecified history of osteopenia Diverticulosis of colon (without mention of hemorrhage) Dyslipidemia Edema Hypertension Internal hemorrhoids without mention of complication Other malignant neoplasm of skin, site unspecified 2006 SCC face,clavicle,left leg-Per Polymyalgia rheumatica (HCC) Resolved 2004 Rheumatoid arthritis (HCC) 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 Blaine Duron Unspecified hypothyroidism Urge incontinence 2008 Urgency of urination 2009 Vertigo PAST SURGICAL HISTORY Procedure Laterality Date ANESTH DIAGNOSTIC ARTHROSCOPIC PROC KNEE JOINT right ARTHRP ACETBLR/PROX FEM PROSTC AGRFT/ALGRFT Left 01/02/2016 Hip replacement, total BIOPSY BREAST OPEN INCISIONAL Bx of breast, incisional BREAST BIOPSY CORE 07/13/2006 U/S needle core upper mid right breast CARPAL TUNNEL 09/2010 Dr Tello CHOLECYSTECTOMY lap COLECTOMY PARTIAL W/ANASTOMOSIS 11/2007 Laparoscopic Sigmoid colectomy for diverticulitis COLONOSCOPY FLX DX W/COLLJ SPEC WHEN PFRMD 03/12/2002 Colonoscopy COLONOSCOPY FLX DX W/COLLJ SPEC WHEN PFRMD 01/21/2009 Colonoscopy; Stricture dilated at colectomy site IMPLANT MESH OPN HERNIA RPR/DEBRIDEMENT CLOSURE 04/02/2011 PAST SURGICAL HISTORY OF 10/01/2006 LARISA PROCEDURE DONE ON FACE FOR SQUAMEOUS CELL CA, PAST SURGICAL HISTORY OF 03/2007 Removal of squamous cell carcinoma from clavicle and left leg by PAST SURGICAL HISTORY OF 04/19/2004 excision from R ear PAST SURGICAL HISTORY OF 06/11/2007 cystoscopy/retrograde PAST SURGICAL HISTORY OF 03/2013 titanium plate removed from left thumb PAST SURGICAL HISTORY OF 11/2014 laminectomy PAST SURGICAL HISTORY OF Left 05/16/2015 Total Left Knee PAST SURGICAL HISTORY OF 07/2015 laminectomy PAST SURGICAL HISTORY OF Right 09/16/2018 MOHS procedure, right cheek - [facility] REPAIR FIRST ABDOMINAL WALL HERNIA 04/02/2011 SIGMOIDOSCOPY FLX DX W/COLLJ SPEC BR/WA IF PFRMD 06/01/2010 TOTAL HIP REPLACEMENT Right 02/13/2021 ALLERGIES Allergen Reactions Lipitor [Atorvastat* Myalgia Myalgia, lethargic Adhesive Rash bandaids and tape Antiviral Drugs Diarrhea Cipro [Ciprofloxaci* Diarrhea Flagyl [Metronidazo* Diarrhea Ultram [Tramadol Hc* Other: See Comments When taken with celexa, felt like skin was hot and had heart palpitations INTERVAL HISTORY She is here for follow up. She is doing well. She denies any flares since the SARTHAK. Last Orencia was 03/28/2022, which she tolerated will. She cancelled her 04/2022 infusion due to a conflict in her schedule. She received reclast 09/14/2021. She was achy for a couple days afterwards, but otherwise tolerated it well. No falls or fractures since [facility]. She takes mobic for pain. Sites of pain: L lower extremity, pain rated 4/10 Joint swelling: R 2nd [facility] EMS: yes, lasting 30 minutes She reports having covid in 02/2022. Symptoms have resolved. Tolerating meds. Answers submitted by the patient for this visit: Review of Systems Rheumatology (Submitted on 05/01/2022) Fever : No Recent Unintentional Weight Change: No Eye Pain: No Eye Redness: No Vision Disturbance: No Eye Dryness: No Nose Bleeds: No Sores in your Mouth: No Trouble Swallowing: No Dry Mouth: No Chest Pain: No Leg Swelling: Yes A Cough: No Shortness of Breath: No Pain with Breathing: No Heartburn: No Abdominal Pain: No Diarrhea: No Black Tarry Stools: No Blood in Urine: No Pain or Burning with Urination: No Joint Pain or Stiffness: Yes Muscle Weakness: No Muscle Aches: Yes Joint Swelling: Yes Morning Stiffness in Joints: Yes A Rash: No Skin Color Changes: No Hair Loss: No Nail Changes: No Headaches: No Numbness: No Memory Loss: No Swollen Glands: No Current Outpatient Medications Medication Sig methotrexate 2.5 mg tablet Take 4 tablets by mouth one time a week. hydroCHLOROthiazide (HYDRODIURIL, ESIDRIX) 12.5 mg capsule Take 1 capsule by mouth once daily as needed (vertigo). As needed for vertigo meloxicam (MOBIC) 7.5 mg tablet TAKE 1 TO 2 TABLETS DAILY WITH FOOD IF NEEDED FOR PAIN rosuvastatin (CRESTOR) 10 mg tablet Take 1 tablet by mouth daily at bedtime. leucovorin (LEUCOVORIN) 5 mg tablet Take 1 tablet by mouth every Saturday. oxybutynin (DITROPAN) 5 mg tablet Take 1 tablet by mouth once daily. levothyroxine (SYNTHROID) 100 mcg tablet Take 1.5 tablets by mouth ON SATURDAY AND SATURDAY ONLY. 1 TABLET REST OF DAYS. aspirin, enteric coated (ASPIRIN, ENTERIC COATED) 81 mg EC tablet Take 1 tablet by mouth twice daily for 27 days. multivitamin tablet Take 1 tablet by mouth once daily. cholecalciferol (VITAMIN D3) 1,000 unit tab Take 1,000 Units by mouth once daily. No current facility-administered medications for this visit. FAMILY HISTORY Problem Relation Age of Onset Cervical Cancer Mother Ischemic Heart Disease Father Heart Sister Breast Cancer Paternal Grandmother Hypertension Sister Stroke Sister Breast Cancer Sister 2009at 73 Hypertension Brother Ischemic Heart Disease Brother Cancer Brother melanoma at face SOCIAL HISTORY: Lives in [place] with . Tobacco use: None Alcohol use: 4 drinks/week PHYSICAL EXAM: BP 179/79 Pulse 61 Temp 36.5 C (97.7 F) (Temporal) Ht 160 cm (5' 3 ) Wt 54.4 kg (120 lb) BMI 21.26 kg/m CONSTITUTIONAL: Well-appearing, in NAD. SKIN: No rash. No alopecia. No sclerodactyly, calcinosis, telangiectasias, digital ulcers, or skin thickening. EYES: No scleral icterus or conjunctivitis ENT and Mouth: External ears normal. RESPIRATORY: Normal breath sounds, clear to auscultation. CARDIOVASCULAR: Regular rate and rhythm, no murmurs or rubs GASTROENTEROLOGY: Normal bowel sounds. Abdomen is soft and non-tender. EXTREMITIES/LYMPH: + lower extremity edema bilaterally NEURO: Awake, alert and oriented, normal gait MUSCULOSKELETAL: JOINT APPEARANCE: No erythema or warmth of any upper or lower extremity joint. RANGE OF MOTION: Able to fully close fists and curl fingers bilaterally. SWOLLEN JOINTS/SYNOVITIS: No synovitis of any joint. TENDER JOINTS: none No tenderness to spine or SI joints Labs reviewed and discussed with the patient: Component Latest Ref Rng & Units 04/23/2022 WBC 3.70 - 11.00 k/uL 5.64 RBC 3.90 - 5.20 m/uL 3.69 (L) Hemoglobin 11.5 - 15.5 g/dL 12.0 Hematocrit 36.0 - 46.0 % 36.8 MCV 80.0 - 100.0 fL 99.7 MCH 26.0 - 34.0 pg 32.5 MCHC 30.5 - 36.0 g/dL 32.6 RDW-CV 11.5 - 15.0 % 14.5 Platelet Count 150 - 400 k/uL 196 MPV 9.0 - 12.7 fL 9.9 Absolute nRBC <0.01 k/uL <0.01 Albumin 3.9 - 4.9 g/dL 4.2 Bilirubin, Total 0.2 - 1.3 mg/dL 0.6 Bilirubin, Conjug <0.2 mg/dL <0.2 Alkaline Phosphatase 34 - 123 U/L 52 AST 13 - 35 U/L 34 ALT 7 - 38 U/L 24 Protein, Total 6.3 - 8.0 g/dL 6.5 Creatinine 0.58 - 0.96 mg/dL 0.82 eGFR >=60 mL/min/1.73m 72 Component Latest Ref Rng & Units 07/07/2021 10/03/2021 WBC 3.70 - 11.00 k/uL 6.00 RBC 3.90 - 5.20 m/uL 3.92 Hemoglobin 11.5 - 15.5 g/dL 12.5 Hematocrit 36.0 - 46.0 % 37.8 MCV 80.0 - 100.0 fL 96.4 MCH 26.0 - 34.0 pg 31.9 MCHC 30.5 - 36.0 g/dL 33.1 RDW-CV 11.5 - 15.0 % 14.0 Platelet Count 150 - 400 k/uL 246 MPV 9.0 - 12.7 fL 10.2 Absolute nRBC <0.01 k/uL <0.01 Albumin 3.9 - 4.9 g/dL 4.6 Bilirubin, Total 0.2 - 1.3 mg/dL 0.5 Bilirubin, Conjug <0.2 mg/dL 0.2 (H) Alkaline Phosphatase 34 - 123 U/L 56 AST 13 - 35 U/L 32 ALT 7 - 38 U/L 21 Protein, Total 6.3 - 8.0 g/dL 6.9 Creatinine 0.58 - 0.96 mg/dL 0.73 eGFR >=60 mL/min/1.73m 83 Vitamin D 25 Hydroxy 31.0 - 80.0 ng/mL 75.2 Calcium 8.5 - 10.2 mg/dL 9.6 Component Latest Ref Rng & Units 10/24/2016 TB Result Negative Negative TB Antigen Response <0.35 IU/mL 0.00 Mitogen Response >0.49 IU/mL >10.00 TB Interpretation No evidence of current or previous infection with Mycobacterium tuberculosis. Component Latest Ref Rng & Units 10/24/2016 Hep B Core Ab, Total Negative Negative Hep C Antibody IA Negative Negative Hep B Surface Ag Negative Initially reactive (A) Hep B Surface Ab, Qual Negative Negative Component Latest Ref Rng & Units 10/27/2010 11/01/2010 Rheumatoid Factor <20 IU/mL 60 (H) CCP Antibody, IgG Units <15 STUDIES: 12/2021 DEXA: IMPRESSION: THE LOWEST T-SCORE IS -4.0 IN THE RIGHT FOREARM No previous RIGHT forearm for comparison 1) DIAGNOSIS (based on BMD alone): OSTEOPOROSIS . RESULTS: Lumbar spine (L1-L4): 1.448 g/cm2 , T-score 2.2, Z-score 4.4 . RIGHT Forearm, Distal 1/3 of Radius: 0.529 , T-score -4.0, Z-score 1.2 . *Dec DEXA- The calculated bone mineral density of the lumbar spine is 1.417 g/sq cm, with a corresponding T score of 2. The calculated bone mineral density of the right femoral neck is 0.820 g/sq cm, with a corresponding T-score of -1.6. The calculated bone mineral density total of the right hip is 0.734 g/sq cm, with a corresponding T-score of -2.2. FRAX score: 10-year probability of fracture is 18% for major osteoporotic and 5% for hip (RF: RA) *October xray hands- FUSION OF LEFT 1ST MCP JOINT SUGGESTIVE OF RHEUMATOID. OSTEOARTHRITIS OF BOTH TRISCAPHE JOINTS, LEFT WORSE THAN RIGHT. *September DEXA- osteopenia LUMBAR SPINE: BMD = 1.08 g/cm2, which is 0.3 SDs (T-Score) for mean peak bone mass of young normals 2.8 SDs (Z-Score) for mean peak bone mass matched for age, sex, weight, ethnicity Comment: There is been a 3.7% decrease in bone density in the lumbar spine. Which is statistically significant RIGHT total hip: BMD = 0.770 g/cm2, which is -1.4 SDs (T-Score) for mean peak bone mass of young normals 0.5 SDs (Z-Score) for mean peak bone mass matched for age, sex, weight, ethnicity RIGHT FEMORAL NECK: BMD = 0.70 g/cm2, which is -1.3 SDs (T-Score) for mean peak bone mass of young normals 0.8 SDs (Z-Score) for mean peak bone mass matched for age, sex, weight, ethnicity Comment: There has been a 10.8% decrease in bone density in the left femoral neck. Which is statistically significant 10-year Fracture Risk (FRAX): Major osteoporotic fracture risk 22% Hip fracture risk 5.6% IMPRESSION and PLAN: 1. Seropositive RA: Treated wt MTX and orencia IV infusions. Stable - Continue methotrexate 10mg PO weekly along with folic acid 1mg daily. - Contine routine methotrexate lab monitoring every 3 months, next due 07/2022. Standing lab orders are in place. Verbal and written reminders provided. Will notify of results via [employer] (advised in past that if LFTs are elevated at any point, would first recommend minimizing or avoiding alcohol use depending on the level) - Continue orencia IV every 4 weeks (no PA required with Medicare A/B). She was advised to schedule another infusion PACO. 2. Osteoarthritis: Hip, knee - Continue meloxicam prn - Continue ortho management 3. Osteopenia: About 30 yrs ago, broke hand after slipping on ice. On fosamax for 2 years, stopped around due to BMD normalization. With osteopenia per DEXA. Dec DEXA with osteopenia, high FRAX. In Feb, started reclast (had 2 days of pain following). In Feb, had hip surgery-femur reportedly split while surgeon was hammering it. Advised this is would not clearly be considered a fragility fracture. But that either way, continued treatment is advisable. 12/2021 DEXA: lowest T-score -4.0 forearm (not previously measured). -next reclast due 09/2022, (no PA needed given Medicare A/B). Advised about potential for jaw ON. Previously advised that she could have pain again which she stated was tolerable. Reminded to take tylenol as needed during such a period. - Continue calcium and vitamin D supplementation -next DEXA due 12/2023 4. Lumbar spinal stenosis: - Continue home exercises - Consider referral to spine clinic if she changes her mind about this in the future 5. General health maintenance: - Completed the covid vaccination series (completed 07/04/20), moderna. Dec. 4th dose in 07/2021. She was advised to hold methotrexate for one week after the covid vaccine. - Advised to continue follow-up with PCP for routine health maintenance and malignancy screening -she will f/u with cardiology for elevated BP Follow-up in 3 months or sooner if needed. Patient was instructed to call if any questions or concerns. Thank you for allowing me to participate in the care of your patient. I spent a total of 15 minutes on the date of the service which included preparing to see the patient, [id number] patient care, completing clinical documentation, performing a medically appropriate examination, ordering medications, tests, or procedures and communicating results to the patient/family/caregiver. Anjana Clark APRN.DEJAN documented in this encounter [facility] 04-30-2022 Instructions Anjana Clark APRN.CNP - 04/30/2022 2:59 PM EST Labs due 07/22/2022 and every 3 months documented in this encounter [facility] 04-19-2022 History of Present illness Narrative [place] is 1 year status post right total hip replacement. She also had a left total hip replacement previously by Dr. Jett. She had an intraoperative calcar fracture requiring a cerclage cable. She has healed nicely. X-rays today demonstrate well appearing total hip replacements in appropriate position alignment with no evidence of loosening. On physical exam she has full arcs of motion which are painless and negative Stinchfield exam. She has full strength and sensation throughout. She denies having any pain or difficulty in either hip. All questions answered today. Red flag symptoms discussed. At this point I would follow-up every 2 years with a clinical exam and x-rays. I spent a total of <10 minutes minutes on the date of the service which included preparing to see the patient, [id number] patient care, completing clinical documentation, obtaining and/or reviewing separately obtained history, performing a medically appropriate examination, counseling and educating the patient/family/caregiver. Sabina Jefferson MD Orthopaedic Surgery documented in this encounter [facility] 04-19-2022 Miscellaneous Notes Radiology Service Progress Note PATIENT NAME: [place] Mosquera DATE OF SERVICE: April 19, 2022 TIME: 10:24 AM PATIENT IDENTITY VERIFICATION COMPLETED USING TWO (2) IDENTIFIERS: Name and Date of confirmed by patient verbally. FALL SCREENING: Has the patient had 2 falls in the last year or 1 fall with injury or currently using an Ambulatory Assistive Device (Walker, Cane, Wheelchair, Crutches, etc.)? No PATIENT GENDER DATA: Female. status: : No status: NO. PATIENT RELEVANT IMPLANT DATA REVIEWED: Not Applicable RADIOLOGY DEPARTMENT: General X-ray: Exam(s) Completed: Pelvis X-Ray: Pelvis General AP PERIPHERAL IV DATA: Not applicable SIGNED BY: RT Delta(R) April 19, 2022 10:24 AM documented in this encounter [facility] 04-19-2022 Progress note Formatting of t his note might be different from the original. Radiology Service Progress Note PATIENT NAME: [place] Mosquera DATE OF SERVICE: April 19, 2022 TIME: 10:24 AM PATIENT IDENTITY VERIFICATION COMPLETED USING TWO (2) IDENTIFIERS: Name and Date of confirmed by patient verbally. FALL SCREENING: Has the patient had 2 falls in the last year or 1 fall with injury or currently using an Ambulatory Assistive Device (Walker, Cane, Wheelchair, Crutches, etc.)? No PATIENT GENDER DATA: Female. status: : No status: NO. PATIENT RELEVANT IMPLANT DATA REVIEWED: Not Applicable RADIOLOGY DEPARTMENT: General X-ray: Exam(s) Completed: Pelvis X-Ray: Pelvis General AP PERIPHERAL IV DATA: Not applicable SIGNED BY: RT Delta(R) April 19, 2022 10:24 AM [facility] 02-21-2022 Miscellaneous Notes Appt updated. PSS - [place] had a family emergency and has requested today's appointment to be rescheduled. She stated she will check on [employer] this evening for new appointment date and time. Thank you. documented in this encounter [facility] 02-19-2022 Miscellaneous Notes The following approved medication requests have been transmitted electronically. Requested Prescriptions Signed Prescriptions Disp Refills methotrexate 2.5 mg tablet 48 tablet 0 Sig: Take 4 tablets by mouth one time a week. Authorizing Provider: ANJANA CLARK APRN.EMISSION SPECIALIST Patient has been identified by name and date of : Yes RX INSTRUCTIONS: Patient aware RX will be sent to pharmacy. No need to notify patient. LAST APPOINTMENT: 11/02/2021 UPCOMING APPOINTMENT: 05/04/2022 LABS: Hemoglobin (g/dL) Date Value 12/20/2021 12.1 06/22/2021 12.9 Hematocrit (%) Date Value 12/20/2021 36.6 06/22/2021 37.8 WBC (k/uL) Date Value 12/20/2021 5.73 06/22/2021 6.14 Platelet Count (k/uL) Date Value 12/20/2021 196 06/22/2021 199 AST Date Value Ref Range Status 12/20/2021 34 13 - 35 U/L Final ALT Date Value Ref Range Status 12/20/2021 24 7 - 38 U/L Final Creatinine Date Value Ref Range Status 12/20/2021 0.87 0.58 - 0.96 mg/dL Final No results found for: URICACID Chelsey Kelly MA documented in this encounter [facility] 01-23-2022 Miscellaneous Notes Pt no longer under my care. Orders were signed by Dr. Rico. Good morning, When able, can you sign orders for today's Orencia tx? Thank you Thalia Abarca RN documented in this encounter [facility] 01-11-2022 History of Present illness Narrative Chief Complaint Patient presents with: Hospital Follow Up HPI [place] Mosquera is a 81 year old female who presents here today for hospital follow up. She does have an advanced directive. She is feeling better, no further issues, no terminal computer operator effects, hospital stated it was a TIA. Pt has already followed up with [facility]22 who did not believe it was a TIA but is migraine related. She doesn't not have to follow up. 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 She is not scheduled to see any Neuro and Headache specialists. Pt denies any issues with headaches except for when she has an episode. The episodes last several hours off and on through the day when she has an episodes. She denies any paralysis, vision changes, when these episodes occur, she just has trouble vocally was able to speak but couldn't say the proper words. The headache starts after the speech difficulty starts, the speech difficulty lasts only about 15 minutes and then the headaches linger off and on through the day. Below copied from Intac[employer]: History of Present Illness Chief Complaint: Neuro S/Sx Informant: patient Onset/Context/Timing Onset: Today Context: Sudden Onset Quality and Location: Positive for Expressive Aphasia Narrative Narrative: Patient presents to triage secondary to expressive aphasia. She states symptoms started roughly half hour ago. She states she could not get her words out when trying to speak to her . Stroke alert was called in triage and patient was in CAT scan before I had the opportunity to evaluate her. Upon return to the room patient is speaking without difficulty. She states she does not quite feel back to baseline but much improved. Patient reports history of at least 2 prior TIAs. She states that she was evaluated by a neurologist at [facility] and they were not sure that she truly had TIA. She takes baby aspirin daily. She denies having any other weakness or paresthesia with this episode today. Procedures - (CT brain/chest x-ray/CTA head and neck/MRI brain) Summary of Care Provided Minutes Spent on Discharge: 30 Hospital Course: Mrs. Mosquera is an 81-year-old female presented to the emergency department was [facility] on 01/01/2022 with expressive aphasia. This episode occurred approximately 1 PM and was followed by headache. She states that her symptoms lasted for about 15 to 30 minutes and then resolved spontaneously. She denied any associated lightheadedness or dizziness and had no associated tingling, numbness, or focal weakness. She reported that she has had this twice in the past and has followed up with neurology [facility]. They feel that these are migrainous related episodes and that she is not having TIAs. Upon presentation her vital signs were relatively stable other than a mildly elevated blood pressure 151/64. Her blood pressures did resume to her baseline after admission. Her laboratory data was overall unimpressive. The CT of her brain showed no acute intracranial pathology and only chronic involutional changes. CTA of her head and neck showed minimal calcific plaque of the left internal carotid artery at the origin causing less than 50% narrowing which is stable when compared to previous studies. She was admitted to the telemetry floor for further work-up. She had an echocardiogram approximately 1 year ago that showed normal EF and no sign of PFO or ASD on bubble study. An MRI of her brain was obtained and showed mild atrophy and minor periventricular white matter ischemic changes without any evidence of acute infarct. As she has had significant follow-up for previous episodes like this with neurology and a negative study at this time and has resolved symptoms completely we will discharge her home and have her continue her aspirin. I have made a referral to neurology here in town as she does indicate that it is far for her to drive to [place]. 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 She does indicate that he likely has not much time left and she has been his sole care provider since he was diagnosed this summer. She was referred to see Dr. Valverde and call for an appointment to get in soon as he has an available appointment. I have also instructed her to follow-up with her primary care physician within the next 2 weeks. JUANCARLOS: She uses the Ativan 0.5 mg at bedtime to help her sleep but admits that there are times when she feels she could use one during the day with the stress of her . Past medical history, appointments, medications, allergies reviewed. 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 Blaine Duron Unspecified hypothyroidism Urge incontinence 2009 Urgency of urination 2009 Vertigo Previous Surgical History PAST SURGICAL HISTORY Procedure Laterality Date ANESTH DIAGNOSTIC ARTHROSCOPIC PROC KNEE JOINT right ARTHRP ACETBLR/PROX FEM PROSTC AGRFT/ALGRFT Left 01/02/2016 Hip replacement, total BIOPSY BREAST OPEN INCISIONAL Bx of breast, incisional BREAST BIOPSY CORE 07/13/2006 U/S needle core upper mid right breast CARPAL TUNNEL 09/2010 Dr Tello CHOLECYSTECTOMY lap COLECTOMY PARTIAL W/ANASTOMOSIS 11/2007 Laparoscopic Sigmoid colectomy for diverticulitis COLONOSCOPY FLX DX W/COLLJ SPEC WHEN PFRMD 03/12/2002 Colonoscopy COLONOSCOPY FLX DX W/COLLJ SPEC WHEN PFRMD 01/21/2009 Colonoscopy; Stricture dilated at colectomy site IMPLANT MESH OPN HERNIA RPR/DEBRIDEMENT CLOSURE 04/02/2011 PAST SURGICAL HISTORY OF 10/01/2006 LARISA PROCEDURE DONE ON FACE FOR SQUAMEOUS CELL CA, PAST SURGICAL HISTORY OF 03/2007 Removal of squamous cell carcinoma from clavicle and left leg by PAST SURGICAL HISTORY OF 04/19/2004 excision from R ear PAST SURGICAL HISTORY OF 06/11/2007 cystoscopy/retrograde PAST SURGICAL HISTORY OF 03/2013 titanium plate removed from left thumb PAST SURGICAL HISTORY OF 11/2014 laminectomy PAST SURGICAL HISTORY OF Left 05/16/2015 Total Left Knee PAST SURGICAL HISTORY OF 07/2015 laminectomy PAST SURGICAL HISTORY OF Right 09/16/2018 MOHS procedure, right cheek - [facility] REPAIR FIRST ABDOMINAL WALL HERNIA 04/02/2011 SIGMOIDOSCOPY FLX DX W/COLLJ SPEC BR/WA IF PFRMD 06/01/2010 TOTAL HIP REPLACEMENT Right 02/13/2021 Family History FAMILY HISTORY Problem Relation Age of Onset Cervical Cancer Mother Ischemic Heart Disease Father Heart Sister Breast Cancer Paternal Grandmother Hypertension Sister Stroke Sister Breast Cancer Sister 2009at 73 Hypertension Brother Ischemic Heart Disease Brother Cancer Brother melanoma at face Patient Allergies ALLERGIES Allergen Reactions Lipitor [Atorvastat* Myalgia Myalgia, lethargic Adhesive Rash bandaids and tape Antiviral Drugs Diarrhea Cipro [Ciprofloxaci* Diarrhea Flagyl [Metronidazo* Diarrhea Ultram [Tramadol Hc* Other: See Comments When taken with celexa, felt like skin was hot and had heart palpitations Current Medications Current Outpatient Medications on File Prior to Visit Medication Sig LORazepam (ATIVAN) 0.5 mg Take 1 tablet by mouth daily at bedtime for 90 days. hydroCHLOROthiazide (HYDRODIURIL, ESIDRIX) 12.5 mg capsule Take 1 capsule by mouth once daily as needed (vertigo). As needed for vertigo methotrexate 2.5 mg tablet TAKE 4 TABLETS ONCE WEEKLY meloxicam (MOBIC) 7.5 mg tablet TAKE 1 TO 2 TABLETS DAILY WITH FOOD IF NEEDED FOR PAIN rosuvastatin (CRESTOR) 10 mg tablet Take 1 tablet by mouth daily at bedtime. leucovorin (LEUCOVORIN) 5 mg tablet Take 1 tablet by mouth every Saturday. oxybutynin (DITROPAN) 5 mg tablet Take 1 tablet by mouth once daily. levothyroxine (SYNTHROID) 100 mcg tablet Take 1.5 tablets by mouth ON SATURDAY AND SATURDAY ONLY. 1 TABLET REST OF DAYS. aspirin, enteric coated (ASPIRIN, ENTERIC COATED) 81 mg EC tablet Take 1 tablet by mouth twice daily for 27 days. phenazopyridine (PYRIDIUM) 200 mg tablet Take 1 tablet by mouth three times daily as needed. multivitamin tablet Take 1 tablet by mouth once daily. cholecalciferol (VITAMIN D3) 1,000 unit tab Take 1,000 Units by mouth once daily. No current facility-administered medications on file prior to visit. Social History Social History Tobacco Use Smoking status: Never Smokeless tobacco: Never Substance Use Topics Alcohol use: Yes Alcohol/week: 7.5 standard drinks Types: 3 Glasses of Wine (5oz) per week Comment: Socially Drug use: No EXAM: BP 118/70 Pulse (!) 56 Resp 16 Wt 56.2 kg (123 lb 14.4 oz) SpO2 100% BMI 21.95 kg/m General Appearance: Well appearing, alert, in no acute distress, well-hydrated, well nourished.. Lungs: Lungs clear to auscultation. No wheezing, rhonchi, rales.. Heart: RRR without murmur, gallop, or rubs. No ectopy. Health Maintenance List SHINGRIX VACCINE(1 of 2) Never done ADVANCE DIRECTIVE DISCUSSION Never done COVID-19 VACCINE(5 - Booster for Moderna series) due on 11/11/2021 INFLUENZA(1) due on 01/11/2022 DTAP,TDAP,TD(2 - Td or Tdap) due on 12/01/2023 DIABETES SCREEN due on 02/15/2024 BONE DENSITY Completed PNEUMOCOCCAL: 65+ Completed Data reviewed [facility] hospital reports ASSESSMENT/PLAN: 1. Hospital discharge follow-up - ICD9: V67.59, ICD10: Z09 (primary diagnosis) Improved 2. Atypical migraine - ICD9: 346.80, ICD10: G43.009 May observe for now; as she has only had three episodes over the last coup[el of years May take Tylenol or Aspirin for episode 3. Stress May use Ativan twice daily if needed, given increase in stress Follow up as needed. I agree with the Chief Complaint, ROS, and Past Histories independently gathered by the clinical security support analyst and the remaining scribed note accurately describes my personal service to the patient. Medical Decision Making: Problems: Moderate: 1+ chronic illnesses with change Risk: Moderate: Drug management Medical Decision Making Level: 4 - Moderate Jerry Arnold MD The documentation for this note was completed by Krista Acosta Ma acting as scribe for Jerry Arnold MD. January 11, 2022 2:24 PM. Krista Acosta Ma documented in this encounter [facility] 01-10-2022 Miscellaneous Notes Call placed to [facility] [phone]. Spoke with radiology - will push MR brain, CTA head/neck, CT head to [facility]. AUDI Mcduffie RN documented in this encounter [facility] 01-09-2022 History of Present illness Narrative [facility] Establ[facility] Visit Consultation is requested by: SELF PCP: Jerry Arnold [address] [place] [address] [facility] [place] Mosquera is a 81 year old female. Here today for follow up for recent transient neuro episode. Reason for Visit: spells of neurologic dysfunction - ED visit follow up from [facility] Date of Last Event: 01/03/2022 Antiplatelets/Anticoagulants: Aspirin Statins: Rosuvastatin Side effects: No Refills needed: No Residual Deficits: No residual deficits Current PT/OT/ST: No therapy needs Initial Discharge Disposition: Home Current Living Situation: Home with spouse Current use of a mobility aid for walking/getting around: None Do you have any planned upcoming surgeries or dental procedures? No Running errands, sudden onset of finding the right words to get out. Reports that she knew what she wanted to say. Went to ER and by the time she got there was speaking normal. Every word that she was saying was incorrect. No issues with getting sounds out. Endorses headache during this episode. Would come and go for about 1 hr. Week prior she was on her phone for a long time and reports that farthest letter to the left was not there Bp elevated in office but not usually. Usually well controlled. Last headache about 15 months ago. Below copied from Intacct: History of Present Illness Chief Complaint: Neuro S/Sx Informant: patient Onset/Context/Timing Onset: Today Context: Sudden Onset Quality and Location: Positive for Expressive Aphasia Narrative Narrative: Patient presents to triage secondary to expressive aphasia. She states symptoms started roughly half hour ago. She states she could not get her words out when trying to speak to her . Stroke alert was called in triage and patient was in CAT scan before I had the opportunity to evaluate her. Upon return to the room patient is speaking without difficulty. She states she does not quite feel back to baseline but much improved. Patient reports history of at least 2 prior TIAs. She states that she was evaluated by a neurologist at [facility] and they were not sure that she truly had TIA. She takes baby aspirin daily. She denies having any other weakness or paresthesia with this episode today. Procedures - (CT brain/chest x-ray/CTA head and neck/MRI brain) Summary of Care Provided Minutes Spent on Discharge: 30 Hospital Course: Mrs. Mosquera is an 81-year-old female presented to the emergency department was [facility] on 01/01/2022 with expressive aphasia. This episode occurred approximately 1 PM and was followed by headache. She states that her symptoms lasted for about 15 to 30 minutes and then resolved spontaneously. She denied any associated lightheadedness or dizziness and had no associated tingling, numbness, or focal weakness. She reported that she has had this twice in the past and has followed up with neurology [facility]. They feel that these are migrainous related episodes and that she is not having TIAs. Upon presentation her vital signs were relatively stable other than a mildly elevated blood pressure 151/64. Her blood pressures did resume to her baseline after admission. Her laboratory data was overall unimpressive. The CT of her brain showed no acute intracranial pathology and only chronic involutional changes. CTA of her head and neck showed minimal calcific plaque of the left internal carotid artery at the origin causing less than 50% narrowing which is stable when compared to previous studies. She was admitted to the telemetry floor for further work-up. She had an echocardiogram approximately 1 year ago that showed normal EF and no sign of PFO or ASD on bubble study. An MRI of her brain was obtained and showed mild atrophy and minor periventricular white matter ischemic changes without any evidence of acute infarct. As she has had significant follow-up for previous episodes like this with neurology and a negative study at this time and has resolved symptoms completely we will discharge her home and have her continue her aspirin. I have made a referral to neurology here in town as she does indicate that it is far for her to drive to [place]. 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 She does indicate that he likely has not much time left and she has been his sole care provider since he was diagnosed this summer. She was referred to see Dr. Valverde and call for an appointment to get in soon as he has an available appointment. I have also instructed her to follow-up with her primary care physician within the next 2 weeks. 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 Blaine Duron Unspecified hypothyroidism Urge incontinence 2009 Urgency of urination 2009 Vertigo PAST SURGICAL HISTORY Procedure Laterality Date ANESTH DIAGNOSTIC ARTHROSCOPIC PROC KNEE JOINT right ARTHRP ACETBLR/PROX FEM PROSTC AGRFT/ALGRFT Left 01/02/2016 Hip replacement, total BIOPSY BREAST OPEN INCISIONAL Bx of breast, incisional BREAST BIOPSY CORE 07/13/2006 U/S needle core upper mid right breast CARPAL TUNNEL 09/2010 Dr Tello CHOLECYSTECTOMY lap COLECTOMY PARTIAL W/ANASTOMOSIS 11/2007 Laparoscopic Sigmoid colectomy for diverticulitis COLONOSCOPY FLX DX W/COLLJ SPEC WHEN PFRMD 03/12/2002 Colonoscopy COLONOSCOPY FLX DX W/COLLJ SPEC WHEN PFRMD 01/21/2009 Colonoscopy; Stricture dilated at colectomy site IMPLANT MESH OPN HERNIA RPR/DEBRIDEMENT CLOSURE 04/02/2011 PAST SURGICAL HISTORY OF 10/01/2006 LARISA PROCEDURE DONE ON FACE FOR SQUAMEOUS CELL CA, PAST SURGICAL HISTORY OF 03/2007 Removal of squamous cell carcinoma from clavicle and left leg by PAST SURGICAL HISTORY OF 04/19/2004 excision from R ear PAST SURGICAL HISTORY OF 06/11/2007 cystoscopy/retrograde PAST SURGICAL HISTORY OF 03/2013 titanium plate removed from left thumb PAST SURGICAL HISTORY OF 11/2014 laminectomy PAST SURGICAL HISTORY OF Left 05/16/2015 Total Left Knee PAST SURGICAL HISTORY OF 07/2015 laminectomy PAST SURGICAL HISTORY OF Right 09/16/2018 MOHS procedure, right cheek - [facility] REPAIR FIRST ABDOMINAL WALL HERNIA 04/02/2011 SIGMOIDOSCOPY FLX DX W/COLLJ SPEC BR/WA IF PFRMD 06/01/2010 TOTAL HIP REPLACEMENT Right 02/13/2021 FAMILY HISTORY Problem Relation Age of Onset Cervical Cancer Mother Ischemic Heart Disease Father Heart Sister Breast Cancer Paternal Grandmother Hypertension Sister Stroke Sister Breast Cancer Sister 2009at 73 Hypertension Brother Ischemic Heart Disease Brother Cancer Brother melanoma at face Social History Tobacco Use Smoking status: Never Smokeless tobacco: Never Substance Use Topics Alcohol use: Yes Alcohol/week: 7.5 standard drinks Types: 3 Glasses of Wine (5oz) per week Comment: Socially Drug use: No MEDICATIONS Current Outpatient Medications Medication Sig LORazepam (ATIVAN) 0.5 mg Take 1 tablet by mouth daily at bedtime for 90 days. hydroCHLOROthiazide (HYDRODIURIL, ESIDRIX) 12.5 mg capsule Take 1 capsule by mouth once daily as needed (vertigo). As needed for vertigo methotrexate 2.5 mg tablet TAKE 4 TABLETS ONCE WEEKLY meloxicam (MOBIC) 7.5 mg tablet TAKE 1 TO 2 TABLETS DAILY WITH FOOD IF NEEDED FOR PAIN rosuvastatin (CRESTOR) 10 mg tablet Take 1 tablet by mouth daily at bedtime. leucovorin (LEUCOVORIN) 5 mg tablet Take 1 tablet by mouth every Saturday. oxybutynin (DITROPAN) 5 mg tablet Take 1 tablet by mouth once daily. levothyroxine (SYNTHROID) 100 mcg tablet Take 1.5 tablets by mouth ON SATURDAY AND SATURDAY ONLY. 1 TABLET REST OF DAYS. aspirin, enteric coated (ASPIRIN, ENTERIC COATED) 81 mg EC tablet Take 1 tablet by mouth twice daily for 27 days. phenazopyridine (PYRIDIUM) 200 mg tablet Take 1 tablet by mouth three times daily as needed. multivitamin tablet Take 1 tablet by mouth once daily. cholecalciferol (VITAMIN D3) 1,000 unit tab Take 1,000 Units by mouth once daily. No current facility-administered medications for this visit. ALLERGIES ALLERGIES Allergen Reactions Lipitor [Atorvastat* Myalgia Myalgia, lethargic Adhesive Rash bandaids and tape Antiviral Drugs Diarrhea Cipro [Ciprofloxaci* Diarrhea Flagyl [Metronidazo* Diarrhea Ultram [Tramadol Hc* Other: See Comments When taken with celexa, felt like skin was hot and had heart palpitations PHYSICAL EXAMINATION BP 160/62 Pulse (!) 51 Ht 160 cm (5' 3 ) Wt 54.9 kg (121 lb) SpO2 98% BMI 21.43 kg/m General: Well-developed, well-nourished, in no acute distress. HEENT: Normocephalic, atraumatic. Sclerae anicteric. Oropharynx clear. Extremities: No edema, cyanosis, or clubbing. 2+ dorsalis pedis pulses bilaterally. Skin: No rash or ecchymoses. Neurological: Awake, alert, oriented to person, place, and time. Speech fluent, no dysarthria. Naming, repetition, recall, comprehension, calculation intact. Good attention and insight into illness. Cranial Nerves: PERRL, extraocular movements intact without nystagmus. Visual lockett full. Facial sensation and movements normal and symmetric. Palate elevates equal bilaterally. Tongue midline. Trapezius strength 5/5 bilaterally. Motor: Normal bulk and tone. Strength 5/5 throughout. No pronator drift or tremor. Sensation: Intact light touch Coordination: Rapid alternating movements symmetric bilaterally. [id number], [id number] without dysmetria bilaterally. Reflexes: deferred Gait: Narrow-based, normal spaced and stable without assistance. Tandem gait is stable. LABS Cholesterol: Cholesterol, Total (mg/dL) Date Value 01/06/2021 99 LDL Cholesterol (mg/dL) Date Value 01/06/2021 46 HDL Cholesterol (mg/dL) Date Value 01/06/2021 48 Triglyceride (mg/dL) Date Value 01/06/2021 26 Diabetes: No results found for: HBA1C IMAGING Images have been requested from [facility] Patient Entered Questionnaires PROMIS/NeuroQoL Score Percentiles Physical Health 01/07/2022 11/01/2021 07/04/2021 Physical Function Percentile 24* 16* - Sleep Percentile 50 - - Fatigue Percentile 88 58 - Pain Interference Percentile 84 21* 38 PROMIS SOCIAL ROLE SCORE 01/07/2022 06/17/2021 09/04/2020 Social Role Satisfaction Percentile 79 58 46 Mental Health 01/07/2022 09/04/2020 NeuroQol Cognitive Function Percentile 42 62 General Self-Efficacy Percentile 46 38 PROMIS Global Health Scale 11/01/2021 06/17/2021 11/28/2020 Physical Health Percentile 10 22* 53 Mental Health Percentile - 82 63 Percentiles provide an indication of how a patient's score ranks in relation to the [place] general population. > 31st percentile is within normal limits or better * < 31st percentile is at least SD worse than population, which may be clinically relevant < 16th percentile is at least 1 SD worse than population and warrants attention Depression Screening: PHQ-9 10/13/2015 12/28/2015 09/04/2020 Score 6 0 1 Self-Harm Response - Not at all 0 PHQ-9 Scores: PHQ-9 Self-Harm (Item 9) Response: 0 - 9 No to Mild depression 0 - Not at all 10 - 14 Moderate depression 1 - Several Days > 15 Severe depression 2 - More than half the days 3 - Nearly every day Sleep Apnea Probability Score 09/04/2020 Sleep Apnea Screen V2 44.99 (Sleep study not recommended) Stroke Mechanism and Scales Ischemic or TIA: Transient Ischemic Attack TIA Level of Certainty: Possible Modified Monona Score: Score: 0 NIH Stroke Scale: LOC: 0 LOC Questions: 0 LOC Commands: 0 LOC Normal Gaze: 0 Visual Lockett: 0 Facial Palsy: 0 Motor Left Arm: 0 Motor Right Arm: 0 Motor Left Le Motor Right Le Limb Ataxia: 0 Sensory: 0 Language: 0 Dysarthria: 0 Extinction/Neglect: 0 Total Daily NIHSS: 0 IMPRESSION Episode of transient word finding difficulties in setting of headache. She went to [facility] ED and by the time she arrived, her symptoms resolved. Per imaging results: no acute findings. Patient reports being under more stress recently, which could have led to the headache and onset of word difficulties. She has not had recurrence since that day. Episode likely migraine vs less likely TIA. Need to review actual images. PLAN Request imaging from [place] for review. Continue current medications Stroke warning signs/symptoms and when to seek immediate medical attention discussed. Medical Decision Making: Problems: Moderate: 1+ chronic illnesses with change Data: Unique source(s) for external note(s) reviewed: 3+ Unique test result(s) reviewed: 3+ Independent interpretation of test from other physician/QHCP Risk: Moderate: Moderate risk from testing/treatment and Drug management Medical Decision Making Level: 4 - Moderate I spent a total of 40 minutes on the date of service which included preparing to see the patient, [id number] patient care, completing clinical documentation, obtaining and/or reviewing separately obtained history, performing a medically appropriate examination, counseling and educating the patient/family/caregiver, independently interpreting results (not separately reported), communicating results to the patient/family/caregiver, and care coordination (not separately reported) SIGNATURE Emily Radford APRN.DEJAN [address] [place] [id number] documented in this encounter [facility] 12-25-2021 History of Present illness Narrative Radiology Service Progress Note PATIENT NAME: [place] Mosquera DATE OF SERVICE: December 25, 2021 TIME: 10:22 AM PATIENT IDENTITY VERIFICATION COMPLETED USING TWO (2) IDENTIFIERS: Name and Date of confirmed by patient verbally. FALL SCREENING: Has the patient had 2 falls in the last year or 1 fall with injury or currently using an Ambulatory Assistive Device (Walker, Cane, Wheelchair, Crutches, etc.)? No PATIENT GENDER DATA: Female. status: : No status: NO. PATIENT RELEVANT IMPLANT DATA REVIEWED: Not Applicable RADIOLOGY DEPARTMENT: Bone Density PERIPHERAL IV DATA: Not applicable SIGNED BY: MANDEEP Meza December 25, 2021 10:22 AM documented in this encounter [facility] 11-28-2021 Miscellaneous Notes Pt notified via [email or web address]. Krista Acosta Ma OK to refill ativan for 3 months Should have follow up in 3 months Jerry Arnold MD Last office visit: 08/07/21 F/u scheduled: none Last refilled on: Ativan #7 with 0 refill on 09/29/21 Krista Acosta Ma documented in this encounter [facility] 11-15-2021 Miscellaneous Notes Last OV; 08/07/21 Next OV; None Last Rx; 11/15/20 #30 w/11 Anu Damico Ma documented in this encounter [facility] 11-02-2021 History of Present illness Narrative Follow-up [facility] Rheumatology appointment for seropositive RA. HPI: To review, [place] Mosquera is a 81 year old female - In , written for fosamax weekly - In Dec, diagnosed with seropositive RA. Started on MTX. Confirmatory Hep B surface antigen negative and hep B core ab negative. Discussed with Dr. Beatriz Connors, findings therefore not consistent with hepatitis B infection - In May, started enbrel - In November, enbrel stopped and humira started - In Feb, humira stopped and orencia SC started - In , switched from orencia SC to IV - In Mar, saw Dr. Miller. Reported doing well. Reported less aching with doing GF diet. Due to lymphopenia, advised to reduce MTX dose to 10mg weekly - On 08/19/19, received orencia - In August, reported some increased aching due to the stress of the pandemic, which had actually been leveling off. - In Feb, had reclast infusion. Had 2 days of pain following the infusion - In Feb, had a hip replacement. Surgeon was pounding on the femur and it split. - In Jun, reported feeling pretty good. - at [facility], reports feeling well. No hx of fracture - No jaw pain. Had a tooth extracted 6-7 weeks ago - with lymphoma getting a liver biopsy next month - Takes mobic in past, on average 1 tab/day with relief. Has tried to avoid use but needs it daily, sometimes every other day if eating GF - Has tried tylenol 1300mg at a time which doesn't help baseline joint pain PAST MEDICAL HISTORY Diagnosis Date Benign neoplasm of breast bilat Deep vein thrombosis (DVT) (HCC) Disorder of bone and cartilage, unspecified history of osteopenia Diverticulosis of colon (without mention of hemorrhage) Dyslipidemia Edema Hypertension Internal hemorrhoids without mention of complication Other malignant neoplasm of skin, site unspecified 2006 SCC face,clavicle,left leg-Per Polymyalgia rheumatica (HCC) Resolved 2004 Rheumatoid arthritis (HCC) 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 Blaine Duron Unspecified hypothyroidism Urge incontinence 2009 Urgency of urination 2009 Vertigo PAST SURGICAL HISTORY Procedure Laterality Date ANESTH DIAGNOSTIC ARTHROSCOPIC PROC KNEE JOINT right ARTHRP ACETBLR/PROX FEM PROSTC AGRFT/ALGRFT Left 01/02/2016 Hip replacement, total BIOPSY BREAST OPEN INCISIONAL Bx of breast, incisional BREAST BIOPSY CORE 07/13/2006 U/S needle core upper mid right breast CARPAL TUNNEL 09/2010 Dr Tello CHOLECYSTECTOMY lap COLECTOMY PARTIAL W/ANASTOMOSIS 11/2007 Laparoscopic Sigmoid colectomy for diverticulitis COLONOSCOPY FLX DX W/COLLJ SPEC WHEN PFRMD 03/12/2002 Colonoscopy COLONOSCOPY FLX DX W/COLLJ SPEC WHEN PFRMD 01/21/2009 Colonoscopy; Stricture dilated at colectomy site IMPLANT MESH OPN HERNIA RPR/DEBRIDEMENT CLOSURE 04/02/2011 PAST SURGICAL HISTORY OF 10/01/2006 LARISA PROCEDURE DONE ON FACE FOR SQUAMEOUS CELL CA, PAST SURGICAL HISTORY OF 03/2007 Removal of squamous cell carcinoma from clavicle and left leg by PAST SURGICAL HISTORY OF 04/19/2004 excision from R ear PAST SURGICAL HISTORY OF 06/11/2007 cystoscopy/retrograde PAST SURGICAL HISTORY OF 03/2013 titanium plate removed from left thumb PAST SURGICAL HISTORY OF 11/2014 laminectomy PAST SURGICAL HISTORY OF Left 05/16/2015 Total Left Knee PAST SURGICAL HISTORY OF 07/2015 laminectomy PAST SURGICAL HISTORY OF Right 09/16/2018 MOHS procedure, right cheek - [facility] REPAIR FIRST ABDOMINAL WALL HERNIA 04/02/2011 SIGMOIDOSCOPY FLX DX W/COLLJ SPEC BR/WA IF PFRMD 06/01/2010 TOTAL HIP REPLACEMENT Right 02/13/2021 ALLERGIES Allergen Reactions Lipitor [Atorvastat* Myalgia Myalgia, lethargic Adhesive Rash bandaids and tape Antiviral Drugs Diarrhea Cipro [Ciprofloxaci* Diarrhea Flagyl [Metronidazo* Diarrhea Ultram [Tramadol Hc* Other: See Comments When taken with celexa, felt like skin was hot and had heart palpitations INTERVAL HISTORY She is here for follow up. Last Orencia was 10/31/2021, which she tolerated will. She reports L lower extremity pain that radiates from the buttocks to the knee at times. She saw ortho and was advised that she had tendinitis of left hip flexor. PT did not help. Pain has now improved. She received reclast 09/14/2021. She was achy for a couple days afterwards, but otherwise tolerated it well. No falls or fractures since [facility]. She takes mobic for pain. Sites of pain: no current pain Joint swelling: hands EMS: yes, lasting 20 minutes No recent infections. Tolerating meds. Answers for HPI/ROS submitted by the patient on 11/01/2021 Fever : No Recent Unintentional Weight Change: No Eye Pain: No Eye Redness: No Vision Disturbance: No Eye Dryness: Yes Nose Bleeds: No Sores in your Mouth: No Trouble Swallowing: No Dry Mouth: No Chest Pain: No Leg Swelling: Yes A Cough: No Shortness of Breath: No Pain with Breathing: No Heartburn: No Abdominal Pain: No Diarrhea: No Black Tarry Stools: No Blood in Urine: No Pain or Burning with Urination: No Joint Pain or Stiffness: Yes Muscle Weakness: No Muscle Aches: Yes Joint Swelling: Yes Morning Stiffness in Joints: Yes A Rash: No Skin Color Changes: No Hair Loss: No Nail Changes: No Headaches: No Numbness: No Memory Loss: No Swollen Glands: No Current Outpatient Medications Medication Sig methotrexate 2.5 mg tablet TAKE 4 TABLETS ONCE WEEKLY meloxicam (MOBIC) 7.5 mg tablet TAKE 1 TO 2 TABLETS DAILY WITH FOOD IF NEEDED FOR PAIN rosuvastatin (CRESTOR) 10 mg tablet Take 1 tablet by mouth daily at bedtime. LORazepam (ATIVAN) 0.5 mg Take 1 tablet by mouth daily at bedtime for 90 days. leucovorin (LEUCOVORIN) 5 mg tablet Take 1 tablet by mouth every Saturday. oxybutynin (DITROPAN) 5 mg tablet Take 1 tablet by mouth once daily. levothyroxine (SYNTHROID) 100 mcg tablet Take 1.5 tablets by mouth ON SATURDAY AND SATURDAY ONLY. 1 TABLET REST OF DAYS. predniSONE (DELTASONE) 10 mg tablet Take by mouth with food. Take 3 tabs daily x 5 days, then 2 tabs daily x 5 days, then 1 tab daily x 5 days, then stop. aspirin, enteric coated (ASPIRIN, ENTERIC COATED) 81 mg EC tablet Take 1 tablet by mouth twice daily for 27 days. hydroCHLOROthiazide 12.5 mg capsule Take 1 capsule by mouth once daily. As needed for vertigo phenazopyridine (PYRIDIUM) 200 mg tablet Take 1 tablet by mouth three times daily as needed. (Patient not taking: Reported on 07/05/2021 ) multivitamin tablet Take 1 tablet by mouth once daily. cholecalciferol (VITAMIN D3) 1,000 unit tab Take 1,000 Units by mouth once daily. No current facility-administered medications for this visit. Facility-Administered Medications Ordered in Other Visits Medication Dose Route Frequency abatacept 500 mg in NaCl 0.9% 100 mL (ORENCIA) 500 mg INTRAVENOUS ONCE NaCl 0.9% iv infusion 500-999 mL/hr INTRAVENOUS PRN diphenhydrAMINE 50 mg injection (BENADRYL) 50 mg INTRAVENOUS PRN hydrocortisone sodium succinate (PF) 100 mg injection (Solu-CORTEF) 100 mg INTRAVENOUS PRN EPINEPHrine HCl (PF) 1 mg/mL (1 mL) 0.3 mg injection 0.3 mg INTRAMUSCULAR PRN sodium chloride 0.9 % (flush) 10-20 mL (BD POSIFLUSH) 10-20 mL INTRAVENOUS PRN heparin 100 unit/mL 500 Units injection 5 mL INTRAVENOUS DIRECTED PRN sodium chloride 0.9 % (flush) 10-20 mL (BD POSIFLUSH) 10-20 mL INTRAVENOUS DIRECTED PRN FAMILY HISTORY Problem Relation Age of Onset Cervical Cancer Mother Ischemic Heart Disease Father Heart Sister Breast Cancer Paternal Grandmother Hypertension Sister Stroke Sister Breast Cancer Sister 2009at 73 Hypertension Brother Ischemic Heart Disease Brother Cancer Brother melanoma at face SOCIAL HISTORY: Lives in [place] with . Tobacco use: None Alcohol use: 4 drinks/week PHYSICAL EXAM: BP 147/77 Pulse 61 Temp 36.1 C (96.9 F) (Temporal) Ht 160 cm (5' 3 ) Wt 55.3 kg (122 lb) BMI 21.61 kg/m CONSTITUTIONAL: Well-appearing, in NAD. SKIN: No rash. No alopecia. No sclerodactyly, calcinosis, telangiectasias, digital ulcers, or skin thickening. EYES: No scleral icterus or conjunctivitis ENT and Mouth: External ears normal. RESPIRATORY: Normal breath sounds, clear to auscultation. CARDIOVASCULAR: Regular rate and rhythm, no murmurs or rubs GASTROENTEROLOGY: Normal bowel sounds. Abdomen is soft and non-tender. EXTREMITIES/LYMPH: + lower extremity edema bilaterally NEURO: Awake, alert and oriented, normal gait MUSCULOSKELETAL: JOINT APPEARANCE: No erythema or warmth of any upper or lower extremity joint. RANGE OF MOTION: Able to fully close fists and curl fingers bilaterally. SWOLLEN JOINTS/SYNOVITIS: No synovitis of any joint. TENDER JOINTS: none No tenderness to spine or SI joints +L straight leg raise Labs reviewed and discussed with the patient: Component Latest Ref Rng & Units 07/07/2021 10/03/2021 WBC 3.70 - 11.00 k/uL 6.00 RBC 3.90 - 5.20 m/uL 3.92 Hemoglobin 11.5 - 15.5 g/dL 12.5 Hematocrit 36.0 - 46.0 % 37.8 MCV 80.0 - 100.0 fL 96.4 MCH 26.0 - 34.0 pg 31.9 MCHC 30.5 - 36.0 g/dL 33.1 RDW-CV 11.5 - 15.0 % 14.0 Platelet Count 150 - 400 k/uL 246 MPV 9.0 - 12.7 fL 10.2 Absolute nRBC <0.01 k/uL <0.01 Albumin 3.9 - 4.9 g/dL 4.6 Bilirubin, Total 0.2 - 1.3 mg/dL 0.5 Bilirubin, Conjug <0.2 mg/dL 0.2 (H) Alkaline Phosphatase 34 - 123 U/L 56 AST 13 - 35 U/L 32 ALT 7 - 38 U/L 21 Protein, Total 6.3 - 8.0 g/dL 6.9 Creatinine 0.58 - 0.96 mg/dL 0.73 eGFR >=60 mL/min/1.73m 83 Vitamin D 25 Hydroxy 31.0 - 80.0 ng/mL 75.2 Calcium 8.5 - 10.2 mg/dL 9.6 Component Latest Ref Rng & Units 10/24/2016 TB Result Negative Negative TB Antigen Response <0.35 IU/mL 0.00 Mitogen Response >0.49 IU/mL >10.00 TB Interpretation No evidence of current or previous infection with Mycobacterium tuberculosis. Component Latest Ref Rng & Units 10/24/2016 Hep B Core Ab, Total Negative Negative Hep C Antibody IA Negative Negative Hep B Surface Ag Negative Initially reactive (A) Hep B Surface Ab, Qual Negative Negative Component Latest Ref Rng & Units 10/27/2010 11/01/2010 Rheumatoid Factor <20 IU/mL 60 (H) CCP Antibody, IgG Units <15 STUDIES: *Dec DEXA- The calculated bone mineral density of the lumbar spine is 1.417 g/sq cm, with a corresponding T score of 2. The calculated bone mineral density of the right femoral neck is 0.820 g/sq cm, with a corresponding T-score of -1.6. The calculated bone mineral density total of the right hip is 0.734 g/sq cm, with a corresponding T-score of -2.2. FRAX score: 10-year probability of fracture is 18% for major osteoporotic and 5% for hip (RF: RA) *October xray hands- FUSION OF LEFT 1ST MCP JOINT SUGGESTIVE OF RHEUMATOID. OSTEOARTHRITIS OF BOTH TRISCAPHE JOINTS, LEFT WORSE THAN RIGHT. *September DEXA- osteopenia LUMBAR SPINE: BMD = 1.08 g/cm2, which is 0.3 SDs (T-Score) for mean peak bone mass of young normals 2.8 SDs (Z-Score) for mean peak bone mass matched for age, sex, weight, ethnicity Comment: There is been a 3.7% decrease in bone density in the lumbar spine. Which is statistically significant RIGHT total hip: BMD = 0.770 g/cm2, which is -1.4 SDs (T-Score) for mean peak bone mass of young normals 0.5 SDs (Z-Score) for mean peak bone mass matched for age, sex, weight, ethnicity RIGHT FEMORAL NECK: BMD = 0.70 g/cm2, which is -1.3 SDs (T-Score) for mean peak bone mass of young normals 0.8 SDs (Z-Score) for mean peak bone mass matched for age, sex, weight, ethnicity Comment: There has been a 10.8% decrease in bone density in the left femoral neck. Which is statistically significant 10-year Fracture Risk (FRAX): Major osteoporotic fracture risk 22% Hip fracture risk 5.6% IMPRESSION and PLAN: 1. Seropositive RA: Treated wtih MTX and orencia IV infusions. Stable - Continue methotrexate 10mg PO weekly along with folic acid 1mg daily. - Contine routine methotrexate lab monitoring every 3 months, next due 12/2021. Standing lab orders are in place. Verbal and written reminders provided. Will notify of results via [employer] (advised in past that if LFTs are elevated at any point, would first recommend minimizing or avoiding alcohol use depending on the level) - Continue orencia IV every 4 weeks (no PA required with Medicare A/B). 2. Osteoarthritis: Hip, knee - Continue meloxicam prn - Continue ortho management 3. Osteopenia: About 30 yrs ago, broke hand after slipping on ice. On fosamax for 2 years, stopped around due to BMD normalization. With osteopenia per DEXA. Dec DEXA with osteopenia, high FRAX. In Feb, started reclast (had 2 days of pain following). In Feb, had hip surgery-femur reportedly split while surgeon was hammering it. Advised this is would not clearly be considered a fragility fracture. But that either way, continued treatment is advisable -next reclast due 09/2022, (no PA needed given Medicare A/B). Advised about potential for jaw ON. Previously advised that she could have pain again which she stated was tolerable. Reminded to take tylenol as needed during such a period. - Continue calcium and vitamin D supplementation - Check DEXA in Dec-order previously placed and she was reminded to schedule this 4. Lumbar spinal stenosis: - Continue home exercises - Consider referral to spine clinic if she changes her mind about this in the future 5. General health maintenance: - Completed the covid vaccination series (completed 07/04/20), moderna. Dec. 4th dose in 07/2021. - Advised to continue follow-up with PCP for routine health maintenance and malignancy screening -she will f/u with cardiology for elevated BP Follow-up in 6 months with me or sooner if needed. Patient was instructed to call if any questions or concerns. Thank you for allowing me to participate in the care of your patient. I spent a total of 20 minutes on the date of the service which included preparing to see the patient, [id number] patient care, completing clinical documentation, performing a medically appropriate examination, ordering medications, tests, or procedures and communicating results to the patient/family/caregiver. Anjana Clark APRN.DEJAN documented in this encounter [facility] 11-02-2021 Instructions Anjana Calrk APRN.CNP - 11/02/2021 2:00 PM EDT Please schedule bone density test after 12/23/2021 on the same machine as prior. documented in this encounter [facility] 10-31-2021 History of Present illness Narrative This office note has been dictated. Char Alfaro DO NAME: [place] MOSQUERA [facility] NO: [id number] DATE OF SERVICE: 10/31/2021 Subjective: Ms. Mosquera is here to follow up on right lower extremity endovenous laser ablation. Overall, she is doing well. Denies any complaints. Denies any numbness around the access site. She does still get some swelling, but notices slight improvement following the ablation. She has been wearing her compression stockings. Denies any ulcerations or tissue loss. Objective: Her vital signs are stable. She is in no distress. She has healed venous access site. She does have bilateral lower extremity varicose veins and spider veins. I can palpate thrombosed GSV. Assessment/Plan: Symptomatic varicose veins. Reviewed the findings with Ms. Mosquera and recommend she continue wearing her compression. If she notices more symptoms on the left, she may benefit from endovenous laser ablation of her left GSV, as she does have reflux throughout. However, right now, her symptoms are maintained with compression, elevation and noninterventional therapy. Recommend that she follow up with us as needed. Char Alfaro D.O. [id number] Audio #: [id number] Date Dictated: 10/31/2021 09:39:02 Date Typed: 11/01/2021 14:50:43 Date Revised: documented in this encounter [facility] 10-06-2021 Miscellaneous Notes Called patient and worked in with Meli on 11/10/21. Placed patient on the cancellation list for sooner appointment in [place] or [place]. Offered patient appointments with [facility], declined and stated she will try to go outside [facility] to get a sooner appointment because of her pain. Thanks Forwarding message below to PSR. Please contact patient and assist with scheduling as instructed per Dr. Rico. Thanks, Inez Browning MA See messages, please call her to schedule with any rheum PA or [employer] B[employer] BUILDER APPRENTICE at any location that may be available sooner than December as scheduled. Also, can you double check with Meli Trujillo that she doesn't have a sooner apt? Please then give her an update. Thanks. documented in this encounter [facility] 10-05-2021 Miscellaneous Notes Attempted to reach patient. No answer. Message left on patient's voicemail. Chelsey Kelly MA Please relay mychart message to her. Please try to move up apt with rheum, ok to see meli documented in this encounter [facility] 10-03-2021 Miscellaneous Notes Agree, she is due for labs now. The following approved medication requests have been transmitted electronically. Signed Prescriptions Disp Refills methotrexate 2.5 mg tablet 48 tablet 0 Sig: TAKE 4 TABLETS ONCE WEEKLY LEONIE: No Authorizing Provider: ANJANA CLARK meloxicam (MOBIC) 7.5 mg tablet 180 tablet 0 Sig: TAKE 1 TO 2 TABLETS DAILY WITH FOOD IF NEEDED FOR PAIN LEONIE: No Authorizing Provider: ANJANA CLARK APRN.EMISSION SPECIALIST Patient has been identified by name and date of : Yes RX INSTRUCTIONS: Patient aware RX will be sent to pharmacy. No need to notify patient. Spoke with patient. Patient has been notified to have labs done paco. LAST APPOINTMENT: 07/05/2021 UPCOMING APPOINTMENT: 01/02/2022 LABS: Hemoglobin (g/dL) Date Value 06/22/2021 12.9 Hematocrit (%) Date Value 06/22/2021 37.8 WBC (k/uL) Date Value 06/22/2021 6.14 Platelet Count (k/uL) Date Value 06/22/2021 199 AST Date Value Ref Range Status 06/22/2021 28 13 - 35 U/L Final ALT Date Value Ref Range Status 06/22/2021 17 7 - 38 U/L Final Creatinine Date Value Ref Range Status 06/22/2021 0.74 0.58 - 0.96 mg/dL Final No results found for: URICACID Chelsey Kelly MA documented in this encounter [facility] 10-03-2021 Miscellaneous Notes Provider called and spoke with the patient Encounter closed Patient calling with concerns of swelling to right leg Post EVLT on 09/22/2021 Patient had F/U US completed today, will have provider review and call the patient to triage documented in this encounter [facility] 09-29-2021 Miscellaneous Notes PDMP website checked and validated. All prescriptions have been APPROPRIATELY filled. No suspicious activity was identified. 09/29/2021 by Po Delgadillo APRN.EMISSION SPECIALIST rxe Please see patient request, pended Annabelle Blackmon Ma documented in this encounter [facility] 09-29-2021 Miscellaneous Notes September 29, 2021 PID: [id number] [place] Mosquera [address] [address] Dear Ms. Mosquera, We are pleased to inform you that the results of your recent breast imaging exam on 09/29/2021 are normal. Your mammogram demonstrates that you have dense breast tissue, which could hide abnormalities. Dense breast tissue, in and of itself, is a relatively common condition. Therefore, this information is not provided to cause undue concern; rather, it is to raise your awareness and promote discussion with your health care provider regarding the presence of dense breast tissue in addition to other risk factors. Early detection of cancer is very important. We also understand recommendations regarding breast cancer screening are controversial. Please discuss with your primary care provider which strategy is best for you and whether a mammogram is right for you. Your imaging studies and report will be kept on file at [facility] as part of your permanent medical record and are available for your continuing care. Thank you for allowing us to help in meeting your health care needs. Sincerely, Dr. Grey Interpreting Radiologist [facility] (Normal over 40) documented in this encounter [facility] 09-29-2021 History of Present illness Narrative Radiology Service Progress Note PATIENT NAME: [place] Mosquera DATE OF SERVICE: September 29, 2021 TIME: 10:29 AM PATIENT IDENTITY VERIFICATION COMPLETED USING TWO (2) IDENTIFIERS: Name and Date of confirmed by patient verbally. FALL SCREENING: Has the patient had 2 falls in the last year or 1 fall with injury or currently using an Ambulatory Assistive Device (Walker, Cane, Wheelchair, Crutches, etc.)? No PATIENT GENDER DATA: Female. status: : No status: NO. PATIENT RELEVANT IMPLANT DATA REVIEWED: Not Applicable RADIOLOGY DEPARTMENT: Mammography PERIPHERAL IV DATA: Not applicable SIGNED BY: RT Ava(R) September 29, 2021 10:29 AM documented in this encounter [facility] 09-22-2021 History of Present illness Narrative Date and Start/End times of Surgery: September 22, 2021 Surgeon: Char Alfaro DO Occ Therapy Asst(s): Brii Cates Procedure(s): EVLT ablation of the right great saphenous vein Anesthesia: Local with 1% lidocaine, and tumescence anesthesia using 40 cc of 1% lidocaine + 20 cc of 8.4% sodium bicarbonate in 1000 cc of normal saline Preoperative Diagnosis: Symptomatic varicose veins right leg. Postoperative Diagnoses: Symptomatic varicose veins right leg. Operative Indications: The patient is a 81 year old female with painful varicose veins, especially on the right leg. Noninvasive vascular laboratory studies revealed valvular incompetence in the right great saphenous vein. Options of therapy were discussed. She elected to proceed with surgery. Operative Findings: Varicose veins right leg. Procedure Narrative: The patient was seen in the preoperative area, consent was obtained. She was then taken to the procedure room and placed in supine position. The patient's right lower extremity was prepped with chloraprep and draped in the usual sterile fashion. Attention was first directed to the saphenous vein just at mid calf. Local anesthesia was obtained by injecting Lidocaine 1%. Under ultrasound guidance, the saphenous vein was accessed using the Micro-Access set. A 0.035 inch wire was passed through the sheath to the level of the saphenofemoral junction. The sheath was removed, and a 4-[place]orese sheath and dilator were passed over the guidewire to the level of the saphenofemoral junction. The guidewire and dilator were removed and the [employer] EVLT gold-tipped laser fiber was passed through the sheath to the level of the saphenofemoral junction. The laser fiber was secured to the sheath. Under ultrasound guidance, the tip of the laser fiber was positioned approximately 3 cm distal to the saphenofemoral junction and just distal to the entrance of the superficial epigastric vein. Under ultrasound guidance, tumescence solution was injected into the fascial sheath containing the saphenous vein. The tumescence solution consisted of normal saline, lidocaine, and sodium bicarbonate. A total of 450 mL was injected. The laser power was then set at 7 villegas. The laser was energized and withdrawn at a rate of 1 cm per 9 seconds for the first several cm. Then, the rate of withdrawal was increased to 1 cm per 6 seconds for the remainder of the 56 cm treated. A total of 2315 joules were delivered over 331 seconds to the 56 cm of vein treated. This averaged 41 joules per cm. The sheath and laser fiber were removed. Pressure was held at the site of catheter insertion for 2 minutes. The vein was again interrogated using duplex ultrasound. The vein was completely collapsed and the zhang were thickened. A Tegaderm was applied to the catheter insertion site. A 20-30 mm Hg thigh high compression stocking with a waist belt was put on the leg. The patient tolerated the procedure well. Postoperative instructions were given. Surgeon/Practitioner Performing Venous Access: Char Alfaro DO Surgeon/Practitioner Performing Ablation: Char Alfaro DO Estimated Blood Loss: none Drains: none Prosthetic Devices, Grafts, or Implants: none Specimens: none Complications: none documented in this encounter [facility] 09-22-2021 Instructions Laci Guthrie RN - 09/22/2021 3:29 PM EDT Please follow these instructions after your endovenous laser ablation procedure: You are encouraged to walk at least 20 minutes every 3-4 hours during the day. Walking will help with the recovery process. Refrain from vigorous gym exercise and running for 72 hours. No heavy lifting (greater than 40lbs) for 3-5 days. Avoid submerging your leg (baths, swimming, hot tub) for 72 hours. You will need to wear a compression stocking for two days and two nights following your procedure. After this, compression should be worn during the day only for two weeks. You may shower the morning after your procedure. It is normal to experience some bruising, soreness, and tightening sensations after your procedure for a few weeks. Hndw-gph-zywkbei Ibuprofen (Motrin 200mg), 2-3 tablets every 8 hours with food, should be taken for 7 days after your procedure to help with pain and swelling. Avoid exposure to direct sunlight for 2 weeks after your procedure. Do not fly or take long car rides for 1 week following your procedure. You will be scheduled a follow-up ultrasound 1 week after your procedure. Follow-up with Dr. Alfaro will occur approximately 1 month after your procedure. If you experience severe pain, swelling, or bleeding, please contact the office at [phone] documented in this encounter [facility] 09-22-2021 Nurse Note [facility] Operative Report Endovenous Laser Ablation [place] Mosquera September 22, 2021 1940 ALLERGIES: ALLERGIES Allergen Reactions Lipitor [Atorvastat* Myalgia Myalgia, lethargic Adhesive Rash bandaids and tape Antiviral Drugs Diarrhea Cipro [Ciprofloxaci* Diarrhea Flagyl [Metronidazo* Diarrhea Ultram [Tramadol Hc* Other: See Comments When taken with celexa, felt like skin was hot and had heart palpitations Physician: Dr. Alfaro Assistants: Aura cates RVT Laci yeung Tiffanymejia Leg: right Greater saphenous vein2 Position:Supine Pre-op Assessment: Calm Xanax Dosage (Oral) : NA Time: NA SIGN IN COMPLETE: Yes Patient in Room: NA Vein Marked: No Hair Clipped: No Prep: chloraprep Time out: 1446 UNIVERSAL PROTOCOL / SAFETY CHECKLIST Procedure to be Performed: r leg EVLT Sign In: A Moment of CARE was completed. Personnel directly involved with the procedure wore the appropriate PPE (Personal Protective Equipment). Patient/Surrogate Stated/Verified: PATIENT VERIFIED(optional for EMERGENT procedures): Patient name, Date of , Relevant allergies, and The intended procedure Time Out Communication: Intended patient and procedure match the source documents. Consent documented and matches the intended procedure. Sign Out: SIGN OUT (optional for EMERGENT procedures): No specimen collected. Laci Guthrie RN Start Time: 1446 1% Xylocaine Plain + 8.4% NaBicarb (5:1 mixture): Total injected: 5cc 1000cc Sodium Chloride + 40cc Lidocaine HCl 1% + 20cc 8.4% Sodium Bicarbonate Total Tumescent Local Injected: 450cc Laser Equipment: Laser protective googles ON patient and staff and Angi[employer] Venacure 1470 Laser Energy Used: EVLT: 7 Villegas 2315Joules/cm Seconds 331 cm 56 Sharp Count: Pre-op: 5 Post-op: 5 Dressing: ABD compression stockings End Time: 151 Post-op Assessment: Ambulatory Discharge Instructions: Written Homegoing Instructions given & Reviewed Verbally with Patient Discharge Time: 1524Discharged documented in this encounter [facility] 09-19-2021 Miscellaneous Notes Called patient left Vm to call office to dicuss upcoming procedure also sent mychart message documented in this encounter [facility] 09-15-2021 Miscellaneous Notes Order for mammogram has been placed. Karina Aranda APRN.EMISSION SPECIALIST documented in this encounter [facility] 09-14-2021 Nurse Note Pt had tooth extraction in April. This nurse spoke to Dr. Yifan Brown and he stated that as of July when patient was in for a dental cleaning and XR, teeth were healed and there were no issues. OK to administer Reclast. documented in this encounter [facility] 08-15-2021 Miscellaneous Notes Pt. Coming in today at 1 pm. Nasima Mejia LPN Message left for patient to possibly come in this afternoon. Please transfer to Hem/Onc to schedule. Chemo nurse- Patient is asking to r/s her treatment from 08/17 to 08/16. Please advise. documented in this encounter [facility] 08-14-2021 Miscellaneous Notes Spoke to patient to schedule evlt . encounter closed. documented in this encounter [facility] 08-07-2021 Miscellaneous Notes Called [facility]. Message below relayed to pharmacist. No further questions for our office. Chelsey Kelly MA Too soon for refill, but please advise the pharmacy that it is ok to continue mtx and mobic. Refused Prescriptions Disp Refills methotrexate 2.5 mg tablet [Pharmacy Med Name: METHOTREXATE TAB 2.5MG] Sig: TAKE 4 TABLETS ONCE WEEKLY. LEONIE: No Refused By: ANJANA CLARK Reason for Refusal: A Refill not appropriate Anjana Clark APRN.EMISSION SPECIALIST Patient has been identified by name and date of : Yes RX INSTRUCTIONS: Patient aware RX will be sent to pharmacy. No need to notify patient. LAST APPOINTMENT: 07/05/2021 UPCOMING APPOINTMENT: 01/02/2022 LABS: Hemoglobin (g/dL) Date Value 06/22/2021 12.9 Hematocrit (%) Date Value 06/22/2021 37.8 WBC (k/uL) Date Value 06/22/2021 6.14 Platelet Count (k/uL) Date Value 06/22/2021 199 AST Date Value Ref Range Status 06/22/2021 28 13 - 35 U/L Final ALT Date Value Ref Range Status 06/22/2021 17 7 - 38 U/L Final Creatinine Date Value Ref Range Status 06/22/2021 0.74 0.58 - 0.96 mg/dL Final No results found for: URICACID Chelsey Kelly MA documented in this encounter [facility] 08-07-2021 Instructions Karina Aranda APRN.DEJAN - 08/07/2021 1:45 PM EDT 1.) Refills provided today. 2.) schedule an appt with Dr. Alfaro (Vascular). 3.) Recommend wearing compression socks, watch salt in the diet, and elevate legs when you can. 4.) Continue to take medications as prescribed. 5.) Follow up in a year or sooner as needed. documented in this encounter [facility] 08-07-2021 History of Present illness Narrative This is a 81 year old female who presents today with: Patient presents with: Recheck HISTORY OF PRESENT ILLNESS: [place] Mosquera is a 81 year old female. Patient presents with: Recheck Lipids: Crestor 10 mg, taking due past possible TIA, recommended by Neuro in [place]. Lipid completed in August 2020 WNL. Sleep: Was taking Ativan 0.5 mg as needed to help with sleep. Medication is working well. Has tried melatonin and trazodone in the past, which was not effective. No increased Anxiety or sadness. When she does not take mediation will wake up every night at 0300 and unable to fall back to sleep. RA: Seeing Rheumatology, taking methotrexate. Labs every 3 months and in office every 6 months. Medication is working well. Swelling in Legs: Swelling in lower legs R>L. Swelling in the legs gets worse as the day goes on, improves with elevation. Watching salt in the diet. Has compression socks but difficult to put on due to arthritis. Venous Dr. Alfaro Had US of legs, valve issue in the right leg. Was going to have operation but cancelled due to hip surgery. 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 Blaine Duron Unspecified hypothyroidism Urge incontinence 2009 Urgency of urination 2009 Vertigo PAST SURGICAL HISTORY Procedure Laterality Date ANESTH DIAGNOSTIC ARTHROSCOPIC PROC KNEE JOINT right ARTHRP ACETBLR/PROX FEM PROSTC AGRFT/ALGRFT Left 01/02/2016 Hip replacement, total BIOPSY BREAST OPEN INCISIONAL Bx of breast, incisional BREAST BIOPSY CORE 07/13/2006 U/S needle core upper mid right breast CARPAL TUNNEL 09/2010 Dr Tello CHOLECYSTECTOMY lap COLECTOMY PARTIAL W/ANASTOMOSIS 11/2007 Laparoscopic Sigmoid colectomy for diverticulitis COLONOSCOPY FLX DX W/COLLJ SPEC WHEN PFRMD 03/12/2002 Colonoscopy COLONOSCOPY FLX DX W/COLLJ SPEC WHEN PFRMD 01/21/2009 Colonoscopy; Stricture dilated at colectomy site IMPLANT MESH OPN HERNIA RPR/DEBRIDEMENT CLOSURE 04/02/2011 PAST SURGICAL HISTORY OF 10/01/2006 LARISA PROCEDURE DONE ON FACE FOR SQUAMEOUS CELL CA, PAST SURGICAL HISTORY OF 03/2007 Removal of squamous cell carcinoma from clavicle and left leg by PAST SURGICAL HISTORY OF 04/19/2004 excision from R ear PAST SURGICAL HISTORY OF 06/11/2007 cystoscopy/retrograde PAST SURGICAL HISTORY OF 03/2013 titanium plate removed from left thumb PAST SURGICAL HISTORY OF 11/2014 laminectomy PAST SURGICAL HISTORY OF Left 05/16/2015 Total Left Knee PAST SURGICAL HISTORY OF 07/2015 laminectomy PAST SURGICAL HISTORY OF Right 09/16/2018 MOHS procedure, right cheek - [facility] [place] REPAIR FIRST ABDOMINAL WALL HERNIA 04/02/2011 SIGMOIDOSCOPY FLX DX W/COLLJ SPEC BR/WA IF PFRMD 06/01/2010 TOTAL HIP REPLACEMENT Right 02/13/2021 ALLERGIES Lipitor [Atorvastatin], Adhesive, Antiviral Drugs, Cipro [Ciprofloxacin], Flagyl [Metronidazole Hcl], and Ultram [Tramadol Hcl] MEDICATIONS Current Outpatient Medications Medication Sig leucovorin (LEUCOVORIN) 5 mg tablet Take 1 tablet by mouth every Saturday. methotrexate 2.5 mg tablet Take 4 tablets by mouth one time a week. meloxicam (MOBIC) 7.5 mg tablet TAKE 1 TO 2 TABLETS DAILY WITH FOOD IF NEEDED FOR PAIN oxybutynin (DITROPAN) 5 mg tablet Take 1 tablet by mouth once daily. levothyroxine (SYNTHROID) 100 mcg tablet Take 1.5 tablets by mouth ON SATURDAY AND SATURDAY ONLY. 1 TABLET REST OF DAYS. LORazepam (ATIVAN) 0.5 mg Take 1 tablet by mouth daily at bedtime for 90 days. predniSONE (DELTASONE) 10 mg tablet Take by mouth with food. Take 3 tabs daily x 5 days, then 2 tabs daily x 5 days, then 1 tab daily x 5 days, then stop. aspirin, enteric coated (ASPIRIN, ENTERIC COATED) 81 mg EC tablet Take 1 tablet by mouth twice daily for 27 days. hydroCHLOROthiazide 12.5 mg capsule Take 1 capsule by mouth once daily. As needed for vertigo phenazopyridine (PYRIDIUM) 200 mg tablet Take 1 tablet by mouth three times daily as needed. (Patient not taking: Reported on 07/05/2021 ) multivitamin tablet Take 1 tablet by mouth once daily. rosuvastatin (CRESTOR) 10 mg tablet Take 1 tablet by mouth daily at bedtime. cholecalciferol (VITAMIN D3) 1,000 unit tab Take 1,000 Units by mouth once daily. No current facility-administered medications for this visit. FAMILY HISTORY Problem Relation Age of Onset Cervical Cancer Mother Ischemic Heart Disease Father Heart Sister Breast Cancer Paternal Grandmother Hypertension Sister Stroke Sister Breast Cancer Sister 2009at 73 Hypertension Brother Ischemic Heart Disease Brother Cancer Brother melanoma at face Social History Tobacco Use Smoking status: Never Smoker Smokeless tobacco: Never Used Substance Use Topics Alcohol use: Yes Alcohol/week: 7.5 standard drinks Types: 3 Glasses of Wine (5oz) per week Comment: Socially Drug use: No REVIEW OF SYSTEMS GENERAL: No weight loss, malaise or fevers/chills HEENT: Negative for frequent or significant headaches, No changes in hearing or vision. NECK: Negative for lumps, goiter, pain and significant neck swelling RESPIRATORY: Negative for cough, hemoptysis, wheezing, dyspnea or shortness of breath CARDIOVASCULAR: + Lower leg Edema GI: No nausea, vomiting, or diarrhea/constipation. No hematochezia/melena. No heartburn or reflux symptoms. : No history of dysuria, frequency or incontinence MUSCULOSKELETAL: Negative for joint pain or swelling. SKIN: Negative for lesions, rash, and itching ENDOCRINE: Negative for cold or heat intolerance, polyuria, polydipsia and goiter NEURO: No history of headaches, syncope, paralysis, seizures or tremors MOOD: Negative for depression, anxiety, or suicidal ideation. EXAM: BP 120/62 Pulse 68 Resp 16 Ht 153.5 cm (5' 0.43 ) Wt 57.6 kg (127 lb) SpO2 98% BMI 24.45 kg/m PHYSICAL EXAM:` General Appearance: Well appearing, alert, in no acute distress, well-hydrated, well nourished. Skin: Skin color, texture, turgor normal, no suspicious rashes or lesions. Head: Normocephalic, no masses, lesions, tenderness or abnormalities. Eyes: Anicteric sclera. Extraocular movements are intact. Lungs: Lungs clear to auscultation. No wheezing, rhonchi, rales. Heart: RRR without murmur, gallop, or rubs. No ectopy. Extremities: No deformities, skin discoloration, clubbing or cyanosis. Good capillary refill. +1 non-pitting edema noted on lower legs bilaterally. Good pedal pulses. Peripheral Pulses: Normal, Capillary refill <2secs, strong peripheral pulses, Pulses palpable. Mood: Pleasant, good eye contact, engaged. ASSESSMENT/PLAN: 1. Mixed hyperlipidemia - ICD9: 272.2, ICD10: E78.2 (primary diagnosis) - good control - Continue current medication. - ROSUVASTATIN 10 MG TABLET 2. Anxiousness - ICD9: 300.00, ICD10: F41.9 - Refill provided. - LORAZEPAM 0.5 MG TABLET 3. Lower leg edema - ICD9: 782.3, ICD10: R60.0 - Recommend wearing compression socks, watching salt in the diet, and elevating legs when possible. - Recommend follow up with Vascular to discuss treatment options. - CONSULT TO VASCULAR SURGERY 4. History of rheumatoid arthritis - ICD9: V13.4, ICD10: Z87.39 - Continue to take medication as prescribed. - Keep all scheduled appointments. Follow up in 1 year or sooner as needed. Discussed treatment plan and patient voices understanding. Patient's questions answered appropriately. Medications and potential side effects were discussed and patient voices understanding. Karina Aranda APRN.DEJAN This note was partially generated using [employer] voice recognition system. Note was reviewed for accuracy. There may be minor misspellings or grammar miscues with [employer] voice recognition. 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 02/17/2008/30/2017 DVT (deep venous thrombosis) 01/09/2016 Pain in left knee 06/20/2015 08/30/2017 Abnormality of gait 06/20/2015 08/30/2017 Rheumatoid arthritis involvi ng both hands with positive rheumatoid factor 03/07/2015 04/25/2015 Encounter for long-term current use of medicatio n 10/22/2014 08/30/2017 RA (rheumatoid arthritis) 05/31/20112014 Ventral hernia, unspecified, without mention of obstruction or gangrene 03/09/2011 08/30/2017 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 08/30/2017 Actinic Damage///Sun-Damaged Skin 11/25/2009 09/01/2014 Solar Lentigines 11/25/2009 09/01/2014 Other seborrheic keratosis 11/25/200909/01 Asymptomatic varicose veins 12/10/200708/12 Polymyalgia rheumatica 04/18/2000 0 Edema 04/18/2000 08/30/2017 Lump or mass in breast 04/18/2000 5 Benign neoplasm of breast 2017 Overview: bilat Disorder of bone and cartilage, unspecified 06/14/2009 Overview: history of osteopenia documented as of this encounter (statuses as of 08/07/2021) [facility] History of Past illness Narrative* Problem Noted Date Resolved Date Status post total replacement of left hip 201608/30/2017 Left hip pain 02/17/2016 08/30/2017 Status post left hip replacement 02/17/2016 08/30/2017 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 02/17/2008/30/2017 DVT (deep venous thrombosis) 01/09/2016 Pain in left knee 06/20/2015 08/30/2017 Abnormality of gait 06/20/2015 08/30/2017 Rheumatoid arthritis involvi ng both hands with positive rheumatoid factor 03/07/2015 04/25/2015 Encounter for long-term current use of medicatio n 10/22/2014 08/30/2017 RA (rheumatoid arthritis) 05/31/20112014 Ventral hernia, unspecified, without mention of obstruction or gangrene 03/09/2011 08/30/2017 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 08/30/2017 Actinic Damage///Sun-Damaged Skin 11/25/2009 09/01/2014 Solar Lentigines 11/25/2009 09/01/2014 Other seborrheic keratosis 11/25/200909/01 Asymptomatic varicose veins 12/10/200708/12 Polymyalgia rheumatica 04/18/2000 0 Edema 04/18/2000 08/30/2017 Lump or mass in breast 04/18/2000 5 Benign neoplasm of breast 2017 Overview: bilat Disorder of bone and cartilage, unspecified 06/14/2009 Overview: history of osteopenia documented as of this encounter (statuses as of 08/07/2021) [facility]07[facility]2017 History of Past illness Narrative* Problem Noted Date Resolved Date Status post total replacement of left hip 201608/30/2017 Left hip pain 02/17/2016 08/30/2017 Status post left hip replacement 02/17/2016 08/30/2017 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 02/17/2008/30/2017 DVT (deep venous thrombosis) 01/09/2016 Pain in left knee 06/20/2015 08/30/2017 Abnormality of gait 06/20/2015 08/30/2017 Rheumatoid arthritis involvi ng both hands with positive rheumatoid factor 03/07/2015 04/25/2015 Encounter for long-term current use of medicatio n 10/22/2014 08/30/2017 RA (rheumatoid arthritis) 05/31/20112014 Ventral hernia, unspecified, without mention of obstruction or gangrene 03/09/2011 08/30/2017 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 08/30/2017 Actinic Damage///Sun-Damaged Skin 11/25/2009 09/01/2014 Solar Lentigines 11/25/2009 09/01/2014 Other seborrheic keratosis 11/25/200909/01 Asymptomatic varicose veins 12/10/200708/12 Polymyalgia rheumatica 04/18/2000 0 Edema 04/18/2000 08/30/2017 Lump or mass in breast 04/18/2000 5 Benign neoplasm of breast 2017 Overview: bilat Disorder of bone and cartilage, unspecified 06/14/2009 Overview: history of osteopenia documented as of this encounter (statuses as of 08/14/2021) [facility]2017 History of Past illness Narrative* Problem Noted Date Resolved Date Status post total replacement of left hip 201608/30/2017 Left hip pain 02/17/2016 08/30/2017 Status post left hip replacement 02/17/2016 08/30/2017 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 02/17/2008/30/2017 DVT (deep venous thrombosis) 01/09/2016 Pain in left knee 06/20/2015 08/30/2017 Abnormality of gait 06/20/2015 08/30/2017 Rheumatoid arthritis involvi ng both hands with positive rheumatoid factor 03/07/2015 04/25/2015 Encounter for long-term current use of medicatio n 10/22/2014 08/30/2017 RA (rheumatoid arthritis) 05/31/20112014 Ventral hernia, unspecified, without mention of obstruction or gangrene 03/09/2011 08/30/2017 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 08/30/2017 Actinic Damage///Sun-Damaged Skin 11/25/2009 09/01/2014 Solar Lentigines 11/25/2009 09/01/2014 Other seborrheic keratosis 11/25/200909/01 Asymptomatic varicose veins 12/10/200708/12 Polymyalgia rheumatica 04/18/2000 0 Edema 04/18/2000 08/30/2017 Lump or mass in breast 04/18/2000 5 Benign neoplasm of breast 2017 Overview: bilat Disorder of bone and cartilage, unspecified 06/14/2009 Overview: history of osteopenia documented as of this encounter (statuses as of 08/15/2021) [facility] History of Past illness Narrative* Problem Noted Date Resolved Date Status post total replacement of left hip 201608/30/2017 Left hip pain 02/17/2016 08/30/2017 Status post left hip replacement 02/17/2016 08/30/2017 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 02/17/2008/30/2017 DVT (deep venous thrombosis) 01/09/2016 Pain in left knee 06/20/2015 08/30/2017 Abnormality of gait 06/20/2015 08/30/2017 Rheumatoid arthritis involvi ng both hands with positive rheumatoid factor 03/07/2015 04/25/2015 Encounter for long-term current use of medicatio n 10/22/2014 08/30/2017 RA (rheumatoid arthritis) 05/31/20112014 Ventral hernia, unspecified, without mention of obstruction or gangrene 03/09/2011 08/30/2017 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 08/30/2017 Actinic Damage///Sun-Damaged Skin 11/25/2009 09/01/2014 Solar Lentigines 11/25/2009 09/01/2014 Other seborrheic keratosis 11/25/200909/01 Asymptomatic varicose veins 12/10/200708/12 Polymyalgia rheumatica 04/18/2000 0 Edema 04/18/2000 08/30/2017 Lump or mass in breast 04/18/2000 5 Benign neoplasm of breast 2017 Overview: bilat Disorder of bone and cartilage, unspecified 06/14/2009 Overview: history of osteopenia documented as of this encounter (statuses as of 08/15/2021) [facility] History of Past illness Narrative* Problem Noted Date Resolved Date Status post total replacement of left hip 201608/30/2017 Left hip pain 02/17/2016 08/30/2017 Status post left hip replacement 02/17/2016 08/30/2017 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 02/17/2008/30/2017 DVT (deep venous thrombosis) 01/09/2016 Pain in left knee 06/20/2015 08/30/2017 Abnormality of gait 06/20/2015 08/30/2017 Rheumatoid arthritis involvi ng both hands with positive rheumatoid factor 03/07/2015 04/25/2015 Encounter for long-term current use of medicatio n 10/22/2014 08/30/2017 RA (rheumatoid arthritis) 05/31/20112014 Ventral hernia, unspecified, without mention of obstruction or gangrene 03/09/2011 08/30/2017 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 08/30/2017 Actinic Damage///Sun-Damaged Skin 11/25/2009 09/01/2014 Solar Lentigines 11/25/2009 09/01/2014 Other seborrheic keratosis 11/25/200909/01 Asymptomatic varicose veins 12/10/200708/12 Polymyalgia rheumatica 04/18/2000 0 Edema 04/18/2000 08/30/2017 Lump or mass in breast 04/18/2000 5 Benign neoplasm of breast 2017 Overview: bilat Disorder of bone and cartilage, unspecified 06/14/2009 Overview: history of osteopenia documented as of this encounter (statuses as of 09/14/2021) [facility] History of Past illness Narrative* Problem Noted Date Resolved Date Status post total replacement of left hip 201608/30/2017 Left hip pain 02/17/2016 08/30/2017 Status post left hip replacement 02/17/2016 08/30/2017 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 02/17/2008/30/2017 DVT (deep venous thrombosis) 01/09/2016 Pain in left knee 06/20/2015 08/30/2017 Abnormality of gait 06/20/2015 08/30/2017 Rheumatoid arthritis involvi ng both hands with positive rheumatoid factor 03/07/2015 04/25/2015 Encounter for long-term current use of medicatio n 10/22/2014 08/30/2017 RA (rheumatoid arthritis) 05/31/20112014 Ventral hernia, unspecified, without mention of obstruction or gangrene 03/09/2011 08/30/2017 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 08/30/2017 Actinic Damage///Sun-Damaged Skin 11/25/2009 09/01/2014 Solar Lentigines 11/25/2009 09/01/2014 Other seborrheic keratosis 11/25/200909/01 Asymptomatic varicose veins 12/10/200708/12 Polymyalgia rheumatica 04/18/2000 0 Edema 04/18/2000 08/30/2017 Lump or mass in breast 04/18/2000 5 Benign neoplasm of breast 2017 Overview: bilat Disorder of bone and cartilage, unspecified 06/14/2009 Overview: history of osteopenia documented as of this encounter (statuses as of 09/15/2021) [facility] History of Past illness Narrative* Problem Noted Date Resolved Date Status post total replacement of left hip 201608/30/2017 Left hip pain 02/17/2016 08/30/2017 Status post left hip replacement 02/17/2016 08/30/2017 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 02/17/20 16 08/30/2017 DVT (deep venous thrombosis) 01/09/2016 Pain in left knee 06/20/2015 08/30/2017 Abnormality of gait 06/20/2015 08/30/2017 Rheumatoid arthritis involvi ng both hands with positive rheumatoid factor 03/07/2015 04/25/2015 Encounter for long-term current use of medicatio n 10/22/2014 08/30/2017 RA (rheumatoid arthritis) 05/31/20112014 Ventral hernia, unspecified, without mention of obstruction or gangrene 03/09/2011 08/30/2017 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 08/30/2017 Actinic Damage///Sun-Damaged Skin 11/25/2009 09/01/2014 Solar Lentigines 11/25/2009 09/01/2014 Other seborrheic keratosis 11/25/200909/01 Asymptomatic varicose veins 12/10/200708/12 Polymyalgia rheumatica 04/18/2000 0 Edema 04/18/2000 08/30/2017 Lump or mass in breast 04/18/2000 5 Benign neoplasm of breast 2017 Overview: bilat Disorder of bone and cartilage, unspecified 06/14/2009 Overview: history of osteopenia documented as of this encounter (statuses as of 09/19/2021) [facility] History of Past illness Narrative* Problem Noted Date Resolved Date Status post total replacement of left hip 201608/30/2017 Left hip pain 02/17/2016 08/30/2017 Status post left hip replacement 02/17/2016 08/30/2017 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 02/17/2008/30/2017 DVT (deep venous thrombosis) 01/09/2016 Pain in left knee 06/20/2015 08/30/2017 Abnormality of gait 06/20/2015 08/30/2017 Rheumatoid arthritis involvi ng both hands with positive rheumatoid factor 03/07/2015 04/25/2015 Encounter for long-term current use of medicatio n 10/22/2014 08/30/2017 RA (rheumatoid arthritis) 05/31/20112014 Ventral hernia, unspecified, without mention of obstruction or gangrene 03/09/2011 08/30/2017 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 08/30/2017 Actinic Damage///Sun-Damaged Skin 11/25/2009 09/01/2014 Solar Lentigines 11/25/2009 09/01/2014 Other seborrheic keratosis 11/25/200909/01 Asymptomatic varicose veins 12/10/200708/12 Polymyalgia rheumatica 04/18/2000 0 Edema 04/18/2000 08/30/2017 Lump or mass in breast 04/18/2000 5 Benign neoplasm of breast 2017 Overview: bilat Disorder of bone and cartilage, unspecified 06/14/2009 Overview: history of osteopenia documented as of this encounter (statuses as of 09/28/2021) [facility] History of Past illness Narrative* Problem Noted Date Resolved Date Status post total replacement of left hip 201608/30/2017 Left hip pain 02/17/2016 08/30/2017 Status post left hip replacement 02/17/2016 08/30/2017 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 02/17/2008/30/2017 DVT (deep venous thrombosis) 01/09/2016 Pain in left knee 06/20/2015 08/30/2017 Abnormality of gait 06/20/2015 08/30/2017 Rheumatoid arthritis involvi ng both hands with positive rheumatoid factor 03/07/2015 04/25/2015 Encounter for long-term current use of medicatio n 10/22/2014 08/30/2017 RA (rheumatoid arthritis) 05/31/20112014 Ventral hernia, unspecified, without mention of obstruction or gangrene 03/09/2011 08/30/2017 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 08/30/2017 Actinic Damage///Sun-Damaged Skin 11/25/2009 09/01/2014 Solar Lentigines 11/25/2009 09/01/2014 Other seborrheic keratosis 11/25/200909/01 Asymptomatic varicose veins 12/10/200708/12 Polymyalgia rheumatica 04/18/2000 0 Edema 04/18/2000 08/30/2017 Lump or mass in breast 04/18/2000 5 Benign neoplasm of breast 2017 Overview: bilat Disorder of bone and cartilage, unspecified 06/14/2009 Overview: history of osteopenia documented as of this encounter (statuses as of 09/29/2021) [facility] History of Past illness Narrative* Problem Noted Date Resolved Date Status post total replacement of left hip 201608/30/2017 Left hip pain 02/17/2016 08/30/2017 Status post left hip replacement 02/17/2016 08/30/2017 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 02/17/2008/30/2017 DVT (deep venous thrombosis) 01/09/2016 Pain in left knee 06/20/2015 08/30/2017 Abnormality of gait 06/20/2015 08/30/2017 Rheumatoid arthritis involvi ng both hands with positive rheumatoid factor 03/07/2015 04/25/2015 Encounter for long-term current use of medicatio n 10/22/2014 08/30/2017 RA (rheumatoid arthritis) 05/31/20112014 Ventral hernia, unspecified, without mention of obstruction or gangrene 03/09/2011 08/30/2017 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 08/30/2017 Actinic Damage///Sun-Damaged Skin 11/25/2009 09/01/2014 Solar Lentigines 11/25/2009 09/01/2014 Other seborrheic keratosis 11/25/200909/01 Asymptomatic varicose veins 12/10/200708/12 Polymyalgia rheumatica 04/18/2000 0 Edema 04/18/2000 08/30/2017 Lump or mass in breast 04/18/2000 5 Benign neoplasm of breast 2017 Overview: bilat Disorder of bone and cartilage, unspecified 06/14/2009 Overview: history of osteopenia documented as of this encounter (statuses as of 09/30/2021) [facility] History of Past illness Narrative* Problem Noted Date Resolved Date Status post total replacement of left hip 201608/30/2017 Left hip pain 02/17/2016 08/30/2017 Status post left hip replacement 02/17/2016 08/30/2017 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 02/17/2008/30/2017 DVT (deep venous thrombosis) 01/09/2016 Pain in left knee 06/20/2015 08/30/2017 Abnormality of gait 06/20/2015 08/30/2017 Rheumatoid arthritis involvi ng both hands with positive rheumatoid factor 03/07/2015 04/25/2015 Encounter for long-term current use of medicatio n 10/22/2014 08/30/2017 RA (rheumatoid arthritis) 05/31/20112014 Ventral hernia, unspecified, without mention of obstruction or gangrene 03/09/2011 08/30/2017 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 08/30/2017 Actinic Damage///Sun-Damaged Skin 11/25/2009 09/01/2014 Solar Lentigines 11/25/2009 09/01/2014 Other seborrheic keratosis 11/25/200909/01 Asymptomatic varicose veins 12/10/200708/12 Polymyalgia rheumatica 04/18/2000 0 Edema 04/18/2000 08/30/2017 Lump or mass in breast 04/18/2000 5 Benign neoplasm of breast 2017 Overview: bilat Disorder of bone and cartilage, unspecified 06/14/2009 Overview: history of osteopenia documented as of this encounter (statuses as of 10/03/2021) [facility] History of Past illness Narrative* Problem Noted Date Resolved Date Status post total replacement of left hip 201608/30/2017 Left hip pain 02/17/2016 08/30/2017 Status post left hip replacement 02/17/2016 08/30/2017 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 02/17/2008/30/2017 DVT (deep venous thrombosis) 01/09/2016 Pain in left knee 06/20/2015 08/30/2017 Abnormality of gait 06/20/2015 08/30/2017 Rheumatoid arthritis involvi ng both hands with positive rheumatoid factor 03/07/2015 04/25/2015 Encounter for long-term current use of medicatio n 10/22/2014 08/30/2017 RA (rheumatoid arthritis) 05/31/20112014 Ventral hernia, unspecified, without mention of obstruction or gangrene 03/09/2011 08/30/2017 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 08/30/2017 Actinic Damage///Sun-Damaged Skin 11/25/2009 09/01/2014 Solar Lentigines 11/25/2009 09/01/2014 Other seborrheic keratosis 11/25/200909/01 Asymptomatic varicose veins 12/10/200708/12 Polymyalgia rheumatica 04/18/2000 0 Edema 04/18/2000 08/30/2017 Lump or mass in breast 04/18/2000 5 Benign neoplasm of breast 2017 Overview: bilat Disorder of bone and cartilage, unspecified 06/14/2009 Overview: history of osteopenia documented as of this encounter (statuses as of 10/03/2021) [facility] History of Past illness Narrative* Problem Noted Date Resolved Date Status post total replacement of left hip 201608/30/2017 Left hip pain 02/17/2016 08/30/2017 Status post left hip replacement 02/17/2016 08/30/2017 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 02/17/2008/30/2017 DVT (deep venous thrombosis) 01/09/2016 Pain in left knee 06/20/2015 08/30/2017 Abnormality of gait 06/20/2015 08/30/2017 Rheumatoid arthritis involvi ng both hands with positive rheumatoid factor 03/07/2015 04/25/2015 Encounter for long-term current use of medicatio n 10/22/2014 08/30/2017 RA (rheumatoid arthritis) 05/31/20112014 Ventral hernia, unspecified, without mention of obstruction or gangrene 03/09/2011 08/30/2017 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 08/30/2017 Actinic Damage///Sun-Damaged Skin 11/25/2009 09/01/2014 Solar Lentigines 11/25/2009 09/01/2014 Other seborrheic keratosis 11/25/200909/01 Asymptomatic varicose veins 12/10/200708/12 Polymyalgia rheumatica 04/18/2000 0 Edema 04/18/2000 08/30/2017 Lump or mass in breast 04/18/2000 5 Benign neoplasm of breast 2017 Overview: bilat Disorder of bone and cartilage, unspecified 06/14/2009 Overview: history of osteopenia documented as of this encounter (statuses as of 10/03/2021) [facility] History of Past illness Narrative* Problem Noted Date Resolved Date Status post total replacement of left hip 201608/30/2017 Left hip pain 02/17/2016 08/30/2017 Status post left hip replacement 02/17/2016 08/30/2017 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 02/17/2008/30/2017 DVT (deep venous thrombosis) 01/09/2016 Pain in left knee 06/20/2015 08/30/2017 Abnormality of gait 06/20/2015 08/30/2017 Rheumatoid arthritis involvi ng both hands with positive rheumatoid factor 03/07/2015 04/25/2015 Encounter for long-term current use of medicatio n 10/22/2014 08/30/2017 RA (rheumatoid arthritis) 05/31/20112014 Ventral hernia, unspecified, without mention of obstruction or gangrene 03/09/2011 08/30/2017 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 08/30/2017 Actinic Damage///Sun-Damaged Skin 11/25/2009 09/01/2014 Solar Lentigines 11/25/2009 09/01/2014 Other seborrheic keratosis 11/25/200909/01 Asymptomatic varicose veins 12/10/200708/12 Polymyalgia rheumatica 04/18/2000 0 Edema 04/18/2000 08/30/2017 Lump or mass in breast 04/18/2000 5 Benign neoplasm of breast 2017 Overview: bilat Disorder of bone and cartilage, unspecified 06/14/2009 Overview: history of osteopenia documented as of this encounter (statuses as of 10/05/2021) [facility] History of Past illness Narrative* Problem Noted Date Resolved Date Status post total replacement of left hip 201608/30/2017 Left hip pain 02/17/2016 08/30/2017 Status post left hip replacement 02/17/2016 08/30/2017 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 02/17/2008/30/2017 DVT (deep venous thrombosis) 01/09/2016 Pain in left knee 06/20/2015 08/30/2017 Abnormality of gait 06/20/2015 08/30/2017 Rheumatoid arthritis involvi ng both hands with positive rheumatoid factor 03/07/2015 04/25/2015 Encounter for long-term current use of medicatio n 10/22/2014 08/30/2017 RA (rheumatoid arthritis) 05/31/20112014 Ventral hernia, unspecified, without mention of obstruction or gangrene 03/09/2011 08/30/2017 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 08/30/2017 Actinic Damage///Sun-Damaged Skin 11/25/2009 09/01/2014 Solar Lentigines 11/25/2009 09/01/2014 Other seborrheic keratosis 11/25/200909/01 Asymptomatic varicose veins 12/10/200708/12 Polymyalgia rheumatica 04/18/2000 0 Edema 04/18/2000 08/30/2017 Lump or mass in breast 04/18/2000 5 Benign neoplasm of breast 2017 Overview: bilat Disorder of bone and cartilage, unspecified 06/14/2009 Overview: history of osteopenia documented as of this encounter (statuses as of 10/06/2021) [facility] History of Past illness Narrative* Problem Noted Date Resolved Date Status post total replacement of left hip 201608/30/2017 Left hip pain 02/17/2016 08/30/2017 Status post left hip replacement 02/17/2016 08/30/2017 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 02/17/2008/30/2017 DVT (deep venous thrombosis) 01/09/2016 Pain in left knee 06/20/2015 08/30/2017 Abnormality of gait 06/20/2015 08/30/2017 Rheumatoid arthritis involvi ng both hands with positive rheumatoid factor 03/07/2015 04/25/2015 Encounter for long-term current use of medicatio n 10/22/2014 08/30/2017 RA (rheumatoid arthritis) 05/31/20112014 Ventral hernia, unspecified, without mention of obstruction or gangrene 03/09/2011 08/30/2017 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 08/30/2017 Actinic Damage///Sun-Damaged Skin 11/25/2009 09/01/2014 Solar Lentigines 11/25/2009 09/01/2014 Other seborrheic keratosis 11/25/200909/01 Asymptomatic varicose veins 12/10/200708/12 Polymyalgia rheumatica 04/18/2000 0 Edema 04/18/2000 08/30/2017 Lump or mass in breast 04/18/2000 5 Benign neoplasm of breast 2017 Overview: bilat Disorder of bone and cartilage, unspecified 06/14/2009 Overview: history of osteopenia documented as of this encounter (statuses as of 10/31/2021) [facility] History of Past illness Narrative* Problem Noted Date Resolved Date Status post total replacement of left hip 201608/30/2017 Left hip pain 02/17/2016 08/30/2017 Status post left hip replacement 02/17/2016 08/30/2017 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 02/17/2008/30/2017 DVT (deep venous thrombosis) 01/09/2016 Pain in left knee 06/20/2015 08/30/2017 Abnormality of gait 06/20/2015 08/30/2017 Rheumatoid arthritis involvi ng both hands with positive rheumatoid factor 03/07/2015 04/25/2015 Encounter for long-term current use of medicatio n 10/22/2014 08/30/2017 RA (rheumatoid arthritis) 05/31/20112014 Ventral hernia, unspecified, without mention of obstruction or gangrene 03/09/2011 08/30/2017 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 08/30/2017 Actinic Damage///Sun-Damaged Skin 11/25/2009 09/01/2014 Solar Lentigines 11/25/2009 09/01/2014 Other seborrheic keratosis 11/25/200909/01 Asymptomatic varicose veins 12/10/200708/12 Polymyalgia rheumatica 04/18/2000 0 Edema 04/18/2000 08/30/2017 Lump or mass in breast 04/18/2000 5 Benign neoplasm of breast 2017 Overview: bilat Disorder of bone and cartilage, unspecified 06/14/2009 Overview: history of osteopenia documented as of this encounter (statuses as of 11/02/2021) [facility] History of Past illness Narrative* Problem Noted Date Resolved Date Status post total replacement of left hip 201608/30/2017 Left hip pain 02/17/2016 08/30/2017 Status post left hip replacement 02/17/2016 08/30/2017 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 02/17/2008/30/2017 DVT (deep venous thrombosis) 01/09/2016 Pain in left knee 06/20/2015 08/30/2017 Abnormality of gait 06/20/2015 08/30/2017 Rheumatoid arthritis involvi ng both hands with positive rheumatoid factor 03/07/2015 04/25/2015 Encounter for long-term current use of medicatio n 10/22/2014 08/30/2017 RA (rheumatoid arthritis) 05/31/20112014 Ventral hernia, unspecified, without mention of obstruction or gangrene 03/09/2011 08/30/2017 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 08/30/2017 Actinic Damage///Sun-Damaged Skin 11/25/2009 09/01/2014 Solar Lentigines 11/25/2009 09/01/2014 Other seborrheic keratosis 11/25/200909/01 Asymptomatic varicose veins 12/10/200708/12 Polymyalgia rheumatica 04/18/2000 0 Edema 04/18/2000 08/30/2017 Lump or mass in breast 04/18/2000 5 Benign neoplasm of breast 2017 Overview: bilat Disorder of bone and cartilage, unspecified 06/14/2009 Overview: history of osteopenia documented as of this encounter (statuses as of 11/15/2021) [facility] History of Past illness Narrative* Problem Noted Date Resolved Date Status post total replacement of left hip 201608/30/2017 Left hip pain 02/17/2016 08/30/2017 Status post left hip replacement 02/17/2016 08/30/2017 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 02/17/2008/30/2017 DVT (deep venous thrombosis) 01/09/2016 Pain in left knee 06/20/2015 08/30/2017 Abnormality of gait 06/20/2015 08/30/2017 Rheumatoid arthritis involvi ng both hands with positive rheumatoid factor 03/07/2015 04/25/2015 Encounter for long-term current use of medicatio n 10/22/2014 08/30/2017 RA (rheumatoid arthritis) 05/31/20112014 Ventral hernia, unspecified, without mention of obstruction or gangrene 03/09/2011 08/30/2017 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 08/30/2017 Actinic Damage///Sun-Damaged Skin 11/25/2009 09/01/2014 Solar Lentigines 11/25/2009 09/01/2014 Other seborrheic keratosis 11/25/200909/01 Asymptomatic varicose veins 12/10/200708/12 Polymyalgia rheumatica 04/18/2000 0 Edema 04/18/2000 08/30/2017 Lump or mass in breast 04/18/2000 5 Benign neoplasm of breast 2017 Overview: bilat Disorder of bone and cartilage, unspecified 06/14/2009 Overview: history of osteopenia documented as of this encounter (statuses as of 11/15/2021) [facility] of Past illness Narrative* Problem Noted Date Resolved Date Status post total replacement of left hip 201608/30/2017 Left hip pain 02/17/2016 08/30/2017 Status post left hip replacement 02/17/2016 08/30/2017 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 02/17/2008/30/2017 DVT (deep venous thrombosis) 01/09/2016 Pain in left knee 06/20/2015 08/30/2017 Abnormality of gait 06/20/2015 08/30/2017 Rheumatoid arthritis involvi ng both hands with positive rheumatoid factor 03/07/2015 04/25/2015 Encounter for long-term current use of medicatio n 10/22/2014 08/30/2017 RA (rheumatoid arthritis) 05/31/20112014 Ventral hernia, unspecified, without mention of obstruction or gangrene 03/09/2011 08/30/2017 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 08/30/2017 Actinic Damage///Sun-Damaged Skin 11/25/2009 09/01/2014 Solar Lentigines 11/25/2009 09/01/2014 Other seborrheic keratosis 11/25/200909/01 Asymptomatic varicose veins 12/10/200708/12 Polymyalgia rheumatica 04/18/2000 0 Edema 04/18/2000 08/30/2017 Lump or mass in breast 04/18/2000 5 Benign neoplasm of breast 2017 Overview: bilat Disorder of bone and cartilage, unspecified 06/14/2009 Overview: history of osteopenia documented as of this encounter (statuses as of 11/28/2021) [facility]07[facility]2017 History of Past illness Narrative* Problem Noted Date Resolved Date Status post total replacement of left hip 201608/30/2017 Left hip pain 02/17/2016 08/30/2017 Status post left hip replacement 02/17/2016 08/30/2017 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 02/17/2008/30/2017 DVT (deep venous thrombosis) 01/09/2016 Pain in left knee 06/20/2015 08/30/2017 Abnormality of gait 06/20/2015 08/30/2017 Rheumatoid arthritis involvi ng both hands with positive rheumatoid factor 03/07/2015 04/25/2015 Encounter for long-term current use of medicatio n 10/22/2014 08/30/2017 RA (rheumatoid arthritis) 05/31/20112014 Ventral hernia, unspecified, without mention of obstruction or gangrene 03/09/2011 08/30/2017 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 08/30/2017 Actinic Damage///Sun-Damaged Skin 11/25/2009 09/01/2014 Solar Lentigines 11/25/2009 09/01/2014 Other seborrheic keratosis 11/25/200909/01 Asymptomatic varicose veins 12/10/200708/12 Polymyalgia rheumatica 04/18/2000 0 Edema 04/18/2000 08/30/2017 Lump or mass in breast 04/18/2000 5 Benign neoplasm of breast 2017 Overview: bilat Disorder of bone and cartilage, unspecified 06/14/2009 Overview: history of osteopenia documented as of this encounter (statuses as of 11/28/2021) [facility]2017 History of Past illness Narrative* Problem Noted Date Resolved Date Status post total replacement of left hip 201608/30/2017 Left hip pain 02/17/2016 08/30/2017 Status post left hip replacement 02/17/2016 08/30/2017 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 02/17/2008/30/2017 DVT (deep venous thrombosis) 01/09/2016 Pain in left knee 06/20/2015 08/30/2017 Abnormality of gait 06/20/2015 08/30/2017 Rheumatoid arthritis involvi ng both hands with positive rheumatoid factor 03/07/2015 04/25/2015 Encounter for long-term current use of medicatio n 10/22/2014 08/30/2017 RA (rheumatoid arthritis) 05/31/20112014 Ventral hernia, unspecified, without mention of obstruction or gangrene 03/09/2011 08/30/2017 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 08/30/2017 Actinic Damage///Sun-Damaged Skin 11/25/2009 09/01/2014 Solar Lentigines 11/25/2009 09/01/2014 Other seborrheic keratosis 11/25/200909/01 Asymptomatic varicose veins 12/10/200708/12 Polymyalgia rheumatica 04/18/2000 0 Edema 04/18/2000 08/30/2017 Lump or mass in breast 04/18/2000 5 Benign neoplasm of breast 2017 Overview: bilat Disorder of bone and cartilage, unspecified 06/14/2009 Overview: history of osteopenia documented as of this encounter (statuses as of 12/20/2021) [facility] History of Past illness Narrative* Problem Noted Date Resolved Date Status post total replacement of left hip 201608/30/2017 Left hip pain 02/17/2016 08/30/2017 Status post left hip replacement 02/17/2016 08/30/2017 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 02/17/2008/30/2017 DVT (deep venous thrombosis) 01/09/2016 Pain in left knee 06/20/2015 08/30/2017 Abnormality of gait 06/20/2015 08/30/2017 Rheumatoid arthritis involvi ng both hands with positive rheumatoid factor 03/07/2015 04/25/2015 Encounter for long-term current use of medicatio n 10/22/2014 08/30/2017 RA (rheumatoid arthritis) 05/31/20112014 Ventral hernia, unspecified, without mention of obstruction or gangrene 03/09/2011 08/30/2017 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 08/30/2017 Actinic Damage///Sun-Damaged Skin 11/25/2009 09/01/2014 Solar Lentigines 11/25/2009 09/01/2014 Other seborrheic keratosis 11/25/200909/01 Asymptomatic varicose veins 12/10/200708/12 Polymyalgia rheumatica 04/18/2000 0 Edema 04/18/2000 08/30/2017 Lump or mass in breast 04/18/2000 5 Benign neoplasm of breast 2017 Overview: bilat Disorder of bone and cartilage, unspecified 06/14/2009 Overview: history of osteopenia documented as of this encounter (statuses as of 12/26/2021) [facility] History of Past illness Narrative* Problem Noted Date Resolved Date Status post total replacement of left hip 201608/30/2017 Left hip pain 02/17/2016 08/30/2017 Status post left hip replacement 02/17/2016 08/30/2017 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 02/17/2008/30/2017 DVT (deep venous thrombosis) 01/09/2016 Pain in left knee 06/20/2015 08/30/2017 Abnormality of gait 06/20/2015 08/30/2017 Rheumatoid arthritis involvi ng both hands with positive rheumatoid factor 03/07/2015 04/25/2015 Encounter for long-term current use of medicatio n 10/22/2014 08/30/2017 RA (rheumatoid arthritis) 05/31/20112014 Ventral hernia, unspecified, without mention of obstruction or gangrene 03/09/2011 08/30/2017 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 08/30/2017 Actinic Damage///Sun-Damaged Skin 11/25/2009 09/01/2014 Solar Lentigines 11/25/2009 09/01/2014 Other seborrheic keratosis 11/25/200909/01 Asymptomatic varicose veins 12/10/200708/12 Polymyalgia rheumatica 04/18/2000 0 Edema 04/18/2000 08/30/2017 Lump or mass in breast 04/18/2000 5 Benign neoplasm of breast 2017 Overview: bilat Disorder of bone and cartilage, unspecified 06/14/2009 Overview: history of osteopenia documented as of this encounter (statuses as of 01/10/2022) [facility] History of Past illness Narrative* Problem Noted Date Resolved Date Status post total replacement of left hip 201608/30/2017 Left hip pain 02/17/2016 08/30/2017 Status post left hip replacement 02/17/2016 08/30/2017 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 02/17/2008/30/2017 DVT (deep venous thrombosis) 01/09/2016 Pain in left knee 06/20/2015 08/30/2017 Abnormality of gait 06/20/2015 08/30/2017 Rheumatoid arthritis involvi ng both hands with positive rheumatoid factor 03/07/2015 04/25/2015 Encounter for long-term current use of medicatio n 10/22/2014 08/30/2017 RA (rheumatoid arthritis) 05/31/20112014 Ventral hernia, unspecified, without mention of obstruction or gangrene 03/09/2011 08/30/2017 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 08/30/2017 Actinic Damage///Sun-Damaged Skin 11/25/2009 09/01/2014 Solar Lentigines 11/25/2009 09/01/2014 Other seborrheic keratosis 11/25/200909/01 Asymptomatic varicose veins 12/10/200708/12 Polymyalgia rheumatica 04/18/2000 0 Edema 04/18/2000 08/30/2017 Lump or mass in breast 04/18/2000 5 Benign neoplasm of breast 2017 Overview: bilat Disorder of bone and cartilage, unspecified 06/14/2009 Overview: history of osteopenia documented as of this encounter (statuses as of 01/11/2022) [facility] History of Past illness Narrative* Problem Noted Date Resolved Date Status post total replacement of left hip 201608/30/2017 Left hip pain 02/17/2016 08/30/2017 Status post left hip replacement 02/17/2016 08/30/2017 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 02/17/2008/30/2017 DVT (deep venous thrombosis) 01/09/2016 Pain in left knee 06/20/2015 08/30/2017 Abnormality of gait 06/20/2015 08/30/2017 Rheumatoid arthritis involvi ng both hands with positive rheumatoid factor 03/07/2015 04/25/2015 Encounter for long-term current use of medicatio n 10/22/2014 08/30/2017 RA (rheumatoid arthritis) 05/31/20112014 Ventral hernia, unspecified, without mention of obstruction or gangrene 03/09/2011 08/30/2017 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 08/30/2017 Actinic Damage///Sun-Damaged Skin 11/25/2009 09/01/2014 Solar Lentigines 11/25/2009 09/01/2014 Other seborrheic keratosis 11/25/200909/01 Asymptomatic varicose veins 12/10/200708/12 Polymyalgia rheumatica 04/18/2000 0 Edema 04/18/2000 08/30/2017 Lump or mass in breast 04/18/2000 5 Benign neoplasm of breast 2017 Overview: bilat Disorder of bone and cartilage, unspecified 06/14/2009 Overview: history of osteopenia documented as of this encounter (statuses as of 01/14/2022) [facility] History of Past illness Narrative* Problem Noted Date Resolved Date Status post total replacement of left hip 201608/30/2017 Left hip pain 02/17/2016 08/30/2017 Status post left hip replacement 02/17/2016 08/30/2017 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 02/17/2008/30/2017 DVT (deep venous thrombosis) 01/09/2016 Pain in left knee 06/20/2015 08/30/2017 Abnormality of gait 06/20/2015 08/30/2017 Rheumatoid arthritis involvi ng both hands with positive rheumatoid factor 03/07/2015 04/25/2015 Encounter for long-term current use of medicatio n 10/22/2014 08/30/2017 RA (rheumatoid arthritis) 05/31/20112014 Ventral hernia, unspecified, without mention of obstruction or gangrene 03/09/2011 08/30/2017 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 08/30/2017 Actinic Damage///Sun-Damaged Skin 11/25/2009 09/01/2014 Solar Lentigines 11/25/2009 09/01/2014 Other seborrheic keratosis 11/25/200909/01 Asymptomatic varicose veins 12/10/200708/12 Polymyalgia rheumatica 04/18/2000 0 Edema 04/18/2000 08/30/2017 Lump or mass in breast 04/18/2000 5 Benign neoplasm of breast 2017 Overview: bilat Disorder of bone and cartilage, unspecified 06/14/2009 Overview: history of osteopenia documented as of this encounter (statuses as of 01/23/2022) [facility] History of Past illness Narrative* Problem Noted Date Resolved Date Status post total replacement of left hip 201608/30/2017 Left hip pain 02/17/2016 08/30/2017 Status post left hip replacement 02/17/2016 08/30/2017 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 02/17/20 16 08/30/2017 DVT (deep venous thrombosis) 01/09/2016 Pain in left knee 06/20/2015 08/30/2017 Abnormality of gait 06/20/2015 08/30/2017 Rheumatoid arthritis involvi ng both hands with positive rheumatoid factor 03/07/2015 04/25/2015 Encounter for long-term current use of medicatio n 10/22/2014 08/30/2017 RA (rheumatoid arthritis) 05/31/20112014 Ventral hernia, unspecified, without mention of obstruction or gangrene 03/09/2011 08/30/2017 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 08/30/2017 Actinic Damage///Sun-Damaged Skin 11/25/2009 09/01/2014 Solar Lentigines 11/25/2009 09/01/2014 Other seborrheic keratosis 11/25/200909/01 Asymptomatic varicose veins 12/10/200708/12 Polymyalgia rheumatica 04/18/2000 0 Edema 04/18/2000 08/30/2017 Lump or mass in breast 04/18/2000 5 Benign neoplasm of breast 2017 Overview: bilat Disorder of bone and cartilage, unspecified 06/14/2009 Overview: history of osteopenia documented as of this encounter (statuses as of 01/23/2022) [facility] History of Past illness Narrative* Problem Noted Date Resolved Date Status post total replacement of left hip 201608/30/2017 Left hip pain 02/17/2016 08/30/2017 Status post left hip replacement 02/17/2016 08/30/2017 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 02/17/2008/30/2017 DVT (deep venous thrombosis) 01/09/2016 Pain in left knee 06/20/2015 08/30/2017 Abnormality of gait 06/20/2015 08/30/2017 Rheumatoid arthritis involvi ng both hands with positive rheumatoid factor 03/07/2015 04/25/2015 Encounter for long-term current use of medicatio n 10/22/2014 08/30/2017 RA (rheumatoid arthritis) 05/31/20112014 Ventral hernia, unspecified, without mention of obstruction or gangrene 03/09/2011 08/30/2017 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 08/30/2017 Actinic Damage///Sun-Damaged Skin 11/25/2009 09/01/2014 Solar Lentigines 11/25/2009 09/01/2014 Other seborrheic keratosis 11/25/200909/01 Asymptomatic varicose veins 12/10/200708/12 Polymyalgia rheumatica 04/18/2000 0 Edema 04/18/2000 08/30/2017 Lump or mass in breast 04/18/2000 5 Benign neoplasm of breast 2017 Overview: bilat Disorder of bone and cartilage, unspecified 06/14/2009 Overview: history of osteopenia documented as of this encounter (statuses as of 02/19/2022) [facility] History of Past illness Narrative* Problem Noted Date Resolved Date Status post total replacement of left hip 201608/30/2017 Left hip pain 02/17/2016 08/30/2017 Status post left hip replacement 02/17/2016 08/30/2017 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 02/17/2008/30/2017 DVT (deep venous thrombosis) 01/09/2016 Pain in left knee 06/20/2015 08/30/2017 Abnormality of gait 06/20/2015 08/30/2017 Rheumatoid arthritis involvi ng both hands with positive rheumatoid factor 03/07/2015 04/25/2015 Encounter for long-term current use of medicatio n 10/22/2014 08/30/2017 RA (rheumatoid arthritis) 05/31/20112014 Ventral hernia, unspecified, without mention of obstruction or gangrene 03/09/2011 08/30/2017 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 08/30/2017 Actinic Damage///Sun-Damaged Skin 11/25/2009 09/01/2014 Solar Lentigines 11/25/2009 09/01/2014 Other seborrheic keratosis 11/25/200909/01 Asymptomatic varicose veins 12/10/200708/12 Polymyalgia rheumatica 04/18/2000 0 Edema 04/18/2000 08/30/2017 Lump or mass in breast 04/18/2000 5 Benign neoplasm of breast 2017 Overview: bilat Disorder of bone and cartilage, unspecified 06/14/2009 Overview: history of osteopenia documented as of this encounter (statuses as of 02/21/2022) [facility] History of Past illness Narrative* Problem Noted Date Resolved Date Status post total replacement of left hip 201608/30/2017 Left hip pain 02/17/2016 08/30/2017 Status post left hip replacement 02/17/2016 08/30/2017 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 02/17/2008/30/2017 DVT (deep venous thrombosis) 01/09/2016 Pain in left knee 06/20/2015 08/30/2017 Abnormality of gait 06/20/2015 08/30/2017 Rheumatoid arthritis involvi ng both hands with positive rheumatoid factor 03/07/2015 04/25/2015 Encounter for long-term current use of medicatio n 10/22/2014 08/30/2017 RA (rheumatoid arthritis) 05/31/20112014 Ventral hernia, unspecified, without mention of obstruction or gangrene 03/09/2011 08/30/2017 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 08/30/2017 Actinic Damage///Sun-Damaged Skin 11/25/2009 09/01/2014 Solar Lentigines 11/25/2009 09/01/2014 Other seborrheic keratosis 11/25/200909/01 Asymptomatic varicose veins 12/10/200708/12 Polymyalgia rheumatica 04/18/2000 0 Edema 04/18/2000 08/30/2017 Lump or mass in breast 04/18/2000 5 Benign neoplasm of breast 2017 Overview: bilat Disorder of bone and cartilage, unspecified 06/14/2009 Overview: history of osteopenia documented as of this encounter (statuses as of 02/27/2022) [facility] History of Past illness Narrative* Problem Noted Date Resolved Date Status post total replacement of left hip 201608/30/2017 Left hip pain 02/17/2016 08/30/2017 Status post left hip replacement 02/17/2016 08/30/2017 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 02/17/2008/30/2017 DVT (deep venous thrombosis) 01/09/2016 Pain in left knee 06/20/2015 08/30/2017 Abnormality of gait 06/20/2015 08/30/2017 Rheumatoid arthritis involvi ng both hands with positive rheumatoid factor 03/07/2015 04/25/2015 Encounter for long-term current use of medicatio n 10/22/2014 08/30/2017 RA (rheumatoid arthritis) 05/31/20112014 Ventral hernia, unspecified, without mention of obstruction or gangrene 03/09/2011 08/30/2017 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 08/30/2017 Actinic Damage///Sun-Damaged Skin 11/25/2009 09/01/2014 Solar Lentigines 11/25/2009 09/01/2014 Other seborrheic keratosis 11/25/200909/01 Asymptomatic varicose veins 12/10/200708/12 Polymyalgia rheumatica 04/18/2000 0 Edema 04/18/2000 08/30/2017 Lump or mass in breast 04/18/2000 5 Benign neoplasm of breast 2017 Overview: bilat Disorder of bone and cartilage, unspecified 06/14/2009 Overview: history of osteopenia documented as of this encounter (statuses as of 04/19/2022) [facility] History of Past illness Narrative* Problem Noted Date Resolved Date Status post total replacement of left hip 201608/30/2017 Left hip pain 02/17/2016 08/30/2017 Status post left hip replacement 02/17/2016 08/30/2017 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 02/17/20 16 08/30/2017 DVT (deep venous thrombosis) 01/09/2016 Pain in left knee 06/20/2015 08/30/2017 Abnormality of gait 06/20/2015 08/30/2017 Rheumatoid arthritis involvi ng both hands with positive rheumatoid factor 03/07/2015 04/25/2015 Encounter for long-term current use of medicatio n 10/22/2014 08/30/2017 RA (rheumatoid arthritis) 05/31/20112014 Ventral hernia, unspecified, without mention of obstruction or gangrene 03/09/2011 08/30/2017 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 08/30/2017 Actinic Damage///Sun-Damaged Skin 11/25/2009 09/01/2014 Solar Lentigines 11/25/2009 09/01/2014 Other seborrheic keratosis 11/25/200909/01 Asymptomatic varicose veins 12/10/200708/12 Polymyalgia rheumatica 04/18/2000 0 Edema 04/18/2000 08/30/2017 Lump or mass in breast 04/18/2000 5 Benign neoplasm of breast 2017 Overview: bilat Disorder of bone and cartilage, unspecified 06/14/2009 Overview: history of osteopenia documented as of this encounter (statuses as of 04/20/2022) [facility] History of Past illness Narrative* Problem Noted Date Resolved Date Status post total replacement of left hip 201608/30/2017 Left hip pain 02/17/2016 08/30/2017 Status post left hip replacement 02/17/2016 08/30/2017 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 02/17/2008/30/2017 DVT (deep venous thrombosis) 01/09/2016 Pain in left knee 06/20/2015 08/30/2017 Abnormality of gait 06/20/2015 08/30/2017 Rheumatoid arthritis involvi ng both hands with positive rheumatoid factor 03/07/2015 04/25/2015 Encounter for long-term current use of medicatio n 10/22/2014 08/30/2017 RA (rheumatoid arthritis) 05/31/20112014 Ventral hernia, unspecified, without mention of obstruction or gangrene 03/09/2011 08/30/2017 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 08/30/2017 Actinic Damage///Sun-Damaged Skin 11/25/2009 09/01/2014 Solar Lentigines 11/25/2009 09/01/2014 Other seborrheic keratosis 11/25/200909/01 Asymptomatic varicose veins 12/10/200708/12 Polymyalgia rheumatica 04/18/2000 0 Edema 04/18/2000 08/30/2017 Lump or mass in breast 04/18/2000 5 Benign neoplasm of breast 2017 Overview: bilat Disorder of bone and cartilage, unspecified 06/14/2009 Overview: history of osteopenia documented as of this encounter (statuses as of 05/02/2022) [facility] History of Past illness Narrative* Problem Noted Date Resolved Date Status post total replacement of left hip 201608/30/2017 Left hip pain 02/17/2016 08/30/2017 Status post left hip replacement 02/17/2016 08/30/2017 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 02/17/2008/30/2017 DVT (deep venous thrombosis) 01/09/2016 Pain in left knee 06/20/2015 08/30/2017 Abnormality of gait 06/20/2015 08/30/2017 Rheumatoid arthritis involvi ng both hands with positive rheumatoid factor 03/07/2015 04/25/2015 Encounter for long-term current use of medicatio n 10/22/2014 08/30/2017 RA (rheumatoid arthritis) 05/31/20112014 Ventral hernia, unspecified, without mention of obstruction or gangrene 03/09/2011 08/30/2017 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 08/30/2017 Actinic Damage///Sun-Damaged Skin 11/25/2009 09/01/2014 Solar Lentigines 11/25/2009 09/01/2014 Other seborrheic keratosis 11/25/200909/01 Asymptomatic varicose veins 12/10/200708/12 Polymyalgia rheumatica 04/18/2000 0 Edema 04/18/2000 08/30/2017 Lump or mass in breast 04/18/2000 5 Benign neoplasm of breast 2017 Overview: bilat Disorder of bone and cartilage, unspecified 06/14/2009 Overview: history of osteopenia documented as of this encounter (statuses as of 05/15/2022) [facility] History of Past illness Narrative* Problem Noted Date Resolved Date Status post total replacement of left hip 201608/30/2017 Left hip pain 02/17/2016 08/30/2017 Status post left hip replacement 02/17/2016 08/30/2017 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 02/17/2008/30/2017 DVT (deep venous thrombosis) 01/09/2016 Pain in left knee 06/20/2015 08/30/2017 Abnormality of gait 06/20/2015 08/30/2017 Rheumatoid arthritis involvi ng both hands with positive rheumatoid factor 03/07/2015 04/25/2015 Encounter for long-term current use of medicatio n 10/22/2014 08/30/2017 RA (rheumatoid arthritis) 05/31/20112014 Ventral hernia, unspecified, without mention of obstruction or gangrene 03/09/2011 08/30/2017 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 08/30/2017 Actinic Damage///Sun-Damaged Skin 11/25/2009 09/01/2014 Solar Lentigines 11/25/2009 09/01/2014 Other seborrheic keratosis 11/25/200909/01 Asymptomatic varicose veins 12/10/200708/12 Polymyalgia rheumatica 04/18/2000 0 Edema 04/18/2000 08/30/2017 Lump or mass in breast 04/18/2000 5 Benign neoplasm of breast 2017 Overview: bilat Disorder of bone and cartilage, unspecified 06/14/2009 Overview: history of osteopenia documented as of this encounter (statuses as of 06/06/2022) [facility] History of Past illness Narrative* Problem Noted Date Resolved Date Status post total replacement of left hip 201608/30/2017 Left hip pain 02/17/2016 08/30/2017 Status post left hip replacement 02/17/2016 08/30/2017 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 02/17/2008/30/2017 DVT (deep venous thrombosis) 01/09/2016 Pain in left knee 06/20/2015 08/30/2017 Abnormality of gait 06/20/2015 08/30/2017 Rheumatoid arthritis involvi ng both hands with positive rheumatoid factor 03/07/2015 04/25/2015 Encounter for long-term current use of medicatio n 10/22/2014 08/30/2017 RA (rheumatoid arthritis) 05/31/20112014 Ventral hernia, unspecified, without mention of obstruction or gangrene 03/09/2011 08/30/2017 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 08/30/2017 Actinic Damage///Sun-Damaged Skin 11/25/2009 09/01/2014 Solar Lentigines 11/25/2009 09/01/2014 Other seborrheic keratosis 11/25/200909/01 Asymptomatic varicose veins 12/10/200708/12 Polymyalgia rheumatica 04/18/2000 0 Edema 04/18/2000 08/30/2017 Lump or mass in breast 04/18/2000 5 Benign neoplasm of breast 2017 Overview: bilat Disorder of bone and cartilage, unspecified 06/14/2009 Overview: history of osteopenia documented as of this encounter (statuses as of 07/04/2022) [facility] History of Past illness Narrative* Problem Noted Date Resolved Date Status post total replacement of left hip 201608/30/2017 Left hip pain 02/17/2016 08/30/2017 Status post left hip replacement 02/17/2016 08/30/2017 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 02/17/2008/30/2017 DVT (deep venous thrombosis) 01/09/2016 Pain in left knee 06/20/2015 08/30/2017 Abnormality of gait 06/20/2015 08/30/2017 Rheumatoid arthritis involvi ng both hands with positive rheumatoid factor 03/07/2015 04/25/2015 Encounter for long-term current use of medicatio n 10/22/2014 08/30/2017 RA (rheumatoid arthritis) 05/31/20112014 Ventral hernia, unspecified, without mention of obstruction or gangrene 03/09/2011 08/30/2017 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 08/30/2017 Actinic Damage///Sun-Damaged Skin 11/25/2009 09/01/2014 Solar Lentigines 11/25/2009 09/01/2014 Other seborrheic keratosis 11/25/200909/01 Asymptomatic varicose veins 12/10/200708/12 Polymyalgia rheumatica 04/18/2000 0 Edema 04/18/2000 08/30/2017 Lump or mass in breast 04/18/2000 5 Benign neoplasm of breast 2017 Overview: bilat Disorder of bone and cartilage, unspecified 06/14/2009 Overview: history of osteopenia documented as of this encounter (statuses as of 07/12/2022) [facility] of Past illness Narrative* Problem Noted Date Resolved Date Status post total replacement of left hip 201608/30/2017 Left hip pain 02/17/2016 08/30/2017 Status post left hip replacement 02/17/2016 08/30/2017 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 02/17/2008/30/2017 DVT (deep venous thrombosis) 01/09/2016 Pain in left knee 06/20/2015 08/30/2017 Abnormality of gait 06/20/2015 08/30/2017 Rheumatoid arthritis involvi ng both hands with positive rheumatoid factor 03/07/2015 04/25/2015 Encounter for long-term current use of medicatio n 10/22/2014 08/30/2017 RA (rheumatoid arthritis) 05/31/20112014 Ventral hernia, unspecified, without mention of obstruction or gangrene 03/09/2011 08/30/2017 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 08/30/2017 Actinic Damage///Sun-Damaged Skin 11/25/2009 09/01/2014 Solar Lentigines 11/25/2009 09/01/2014 Other seborrheic keratosis 11/25/200909/01 Asymptomatic varicose veins 12/10/200708/12 Polymyalgia rheumatica 04/18/2000 0 Edema 04/18/2000 08/30/2017 Lump or mass in breast 04/18/2000 5 Benign neoplasm of breast 2017 Overview: bilat Disorder of bone and cartilage, unspecified 06/14/2009 Overview: history of osteopenia documented as of this encounter (statuses as of 07/26/2022) [facility]07[facility]2017 History of Past illness Narrative* Problem Noted Date Resolved Date Status post total replacement of left hip 201608/30/2017 Left hip pain 02/17/2016 08/30/2017 Status post left hip replacement 02/17/2016 08/30/2017 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 02/17/2008/30/2017 DVT (deep venous thrombosis) 01/09/2016 Pain in left knee 06/20/2015 08/30/2017 Abnormality of gait 06/20/2015 08/30/2017 Rheumatoid arthritis involvi ng both hands with positive rheumatoid factor 03/07/2015 04/25/2015 Encounter for long-term current use of medicatio n 10/22/2014 08/30/2017 RA (rheumatoid arthritis) 05/31/20112014 Ventral hernia, unspecified, without mention of obstruction or gangrene 03/09/2011 08/30/2017 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 08/30/2017 Actinic Damage///Sun-Damaged Skin 11/25/2009 09/01/2014 Solar Lentigines 11/25/2009 09/01/2014 Other seborrheic keratosis 11/25/200909/01 Asymptomatic varicose veins 12/10/200708/12 Polymyalgia rheumatica 04/18/2000 0 Edema 04/18/2000 08/30/2017 Lump or mass in breast 04/18/2000 5 Benign neoplasm of breast 2017 Overview: bilat Disorder of bone and cartilage, unspecified 06/14/2009 Overview: history of osteopenia documented as of this encounter (statuses as of 07/31/2022) [facility]2017 History of Past illness Narrative* Problem Noted Date Resolved Date Status post total replacement of left hip 201608/30/2017 Left hip pain 02/17/2016 08/30/2017 Status post left hip replacement 02/17/2016 08/30/2017 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 02/17/2008/30/2017 DVT (deep venous thrombosis) 01/09/2016 Pain in left knee 06/20/2015 08/30/2017 Abnormality of gait 06/20/2015 08/30/2017 Rheumatoid arthritis involvi ng both hands with positive rheumatoid factor 03/07/2015 04/25/2015 Encounter for long-term current use of medicatio n 10/22/2014 08/30/2017 RA (rheumatoid arthritis) 05/31/20112014 Ventral hernia, unspecified, without mention of obstruction or gangrene 03/09/2011 08/30/2017 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 08/30/2017 Actinic Damage///Sun-Damaged Skin 11/25/2009 09/01/2014 Solar Lentigines 11/25/2009 09/01/2014 Other seborrheic keratosis 11/25/200909/01 Asymptomatic varicose veins 12/10/200708/12 Polymyalgia rheumatica 04/18/2000 0 Edema 04/18/2000 08/30/2017 Lump or mass in breast 04/18/2000 5 Benign neoplasm of breast 2017 Overview: bilat Disorder of bone and cartilage, unspecified 06/14/2009 Overview: history of osteopenia documented as of this encounter (statuses as of 08/01/2022) [facility] History of Past illness Narrative* Problem Noted Date Resolved Date Status post total replacement of left hip 201608/30/2017 Left hip pain 02/17/2016 08/30/2017 Status post left hip replacement 02/17/2016 08/30/2017 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 02/17/2008/30/2017 DVT (deep venous thrombosis) 01/09/2016 Pain in left knee 06/20/2015 08/30/2017 Abnormality of gait 06/20/2015 08/30/2017 Rheumatoid arthritis involvi ng both hands with positive rheumatoid factor 03/07/2015 04/25/2015 Encounter for long-term current use of medicatio n 10/22/2014 08/30/2017 RA (rheumatoid arthritis) 05/31/20112014 Ventral hernia, unspecified, without mention of obstruction or gangrene 03/09/2011 08/30/2017 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 08/30/2017 Actinic Damage///Sun-Damaged Skin 11/25/2009 09/01/2014 Solar Lentigines 11/25/2009 09/01/2014 Other seborrheic keratosis 11/25/200909/01 Asymptomatic varicose veins 12/10/200708/12 Polymyalgia rheumatica 04/18/2000 0 Edema 04/18/2000 08/30/2017 Lump or mass in breast 04/18/2000 5 Benign neoplasm of breast 2017 Overview: bilat Disorder of bone and cartilage, unspecified 06/14/2009 Overview: history of osteopenia documented as of this encounter (statuses as of 08/13/2022) [facility] History of Past illness Narrative* Problem Noted Date Resolved Date Status post total replacement of left hip 201608/30/2017 Left hip pain 02/17/2016 08/30/2017 Status post left hip replacement 02/17/2016 08/30/2017 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 02/17/2008/30/2017 DVT (deep venous thrombosis) 01/09/2016 Pain in left knee 06/20/2015 08/30/2017 Abnormality of gait 06/20/2015 08/30/2017 Rheumatoid arthritis involvi ng both hands with positive rheumatoid factor 03/07/2015 04/25/2015 Encounter for long-term current use of medicatio n 10/22/2014 08/30/2017 RA (rheumatoid arthritis) 05/31/20112014 Ventral hernia, unspecified, without mention of obstruction or gangrene 03/09/2011 08/30/2017 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 08/30/2017 Actinic Damage///Sun-Damaged Skin 11/25/2009 09/01/2014 Solar Lentigines 11/25/2009 09/01/2014 Other seborrheic keratosis 11/25/200909/01 Asymptomatic varicose veins 12/10/200708/12 Polymyalgia rheumatica 04/18/2000 0 Edema 04/18/2000 08/30/2017 Lump or mass in breast 04/18/2000 5 Benign neoplasm of breast 2017 Overview: bilat Disorder of bone and cartilage, unspecified 06/14/2009 Overview: history of osteopenia documented as of this encounter (statuses as of 08/15/2022) [facility] History of Past illness Narrative* Problem Noted Date Resolved Date Status post total replacement of left hip 201608/30/2017 Left hip pain 02/17/2016 08/30/2017 Status post left hip replacement 02/17/2016 08/30/2017 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 02/17/2008/30/2017 DVT (deep venous thrombosis) 01/09/2016 Pain in left knee 06/20/2015 08/30/2017 Abnormality of gait 06/20/2015 08/30/2017 Rheumatoid arthritis involvi ng both hands with positive rheumatoid factor 03/07/2015 04/25/2015 Encounter for long-term current use of medicatio n 10/22/2014 08/30/2017 RA (rheumatoid arthritis) 05/31/20112014 Ventral hernia, unspecified, without mention of obstruction or gangrene 03/09/2011 08/30/2017 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 08/30/2017 Actinic Damage///Sun-Damaged Skin 11/25/2009 09/01/2014 Solar Lentigines 11/25/2009 09/01/2014 Other seborrheic keratosis 11/25/200909/01 Asymptomatic varicose veins 12/10/200708/12 Polymyalgia rheumatica 04/18/2000 0 Edema 04/18/2000 08/30/2017 Lump or mass in breast 04/18/2000 5 Benign neoplasm of breast 2017 Overview: bilat Disorder of bone and cartilage, unspecified 06/14/2009 Overview: history of osteopenia documented as of this encounter (statuses as of 08/16/2022) [facility] History of Past illness Narrative* Problem Noted Date Resolved Date Status post total replacement of left hip 201608/30/2017 Left hip pain 02/17/2016 08/30/2017 Status post left hip replacement 02/17/2016 08/30/2017 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 02/17/2008/30/2017 DVT (deep venous thrombosis) 01/09/2016 Pain in left knee 06/20/2015 08/30/2017 Abnormality of gait 06/20/2015 08/30/2017 Rheumatoid arthritis involvi ng both hands with positive rheumatoid factor 03/07/2015 04/25/2015 Encounter for long-term current use of medicatio n 10/22/2014 08/30/2017 RA (rheumatoid arthritis) 05/31/20112014 Ventral hernia, unspecified, without mention of obstruction or gangrene 03/09/2011 08/30/2017 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 08/30/2017 Actinic Damage///Sun-Damaged Skin 11/25/2009 09/01/2014 Solar Lentigines 11/25/2009 09/01/2014 Other seborrheic keratosis 11/25/200909/01 Asymptomatic varicose veins 12/10/200708/12 Polymyalgia rheumatica 04/18/2000 0 Edema 04/18/2000 08/30/2017 Lump or mass in breast 04/18/2000 5 Benign neoplasm of breast 2017 Overview: bilat Disorder of bone and cartilage, unspecified 06/14/2009 Overview: history of osteopenia documented as of this encounter (statuses as of 08/16/2022) [facility] History of Past illness Narrative* Problem Noted Date Resolved Date Status post total replacement of left hip 201608/30/2017 Left hip pain 02/17/2016 08/30/2017 Status post left hip replacement 02/17/2016 08/30/2017 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 02/17/20 16 08/30/2017 DVT (deep venous thrombosis) 01/09/2016 Pain in left knee 06/20/2015 08/30/2017 Abnormality of gait 06/20/2015 08/30/2017 Rheumatoid arthritis involvi ng both hands with positive rheumatoid factor 03/07/2015 04/25/2015 Encounter for long-term current use of medicatio n 10/22/2014 08/30/2017 RA (rheumatoid arthritis) 05/31/20112014 Ventral hernia, unspecified, without mention of obstruction or gangrene 03/09/2011 08/30/2017 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 08/30/2017 Actinic Damage///Sun-Damaged Skin 11/25/2009 09/01/2014 Solar Lentigines 11/25/2009 09/01/2014 Other seborrheic keratosis 11/25/200909/01 Asymptomatic varicose veins 12/10/200708/12 Polymyalgia rheumatica 04/18/2000 0 Edema 04/18/2000 08/30/2017 Lump or mass in breast 04/18/2000 5 Benign neoplasm of breast 2017 Overview: bilat Disorder of bone and cartilage, unspecified 06/14/2009 Overview: history of osteopenia documented as of this encounter (statuses as of 08/24/2022) [facility] History of Past illness Narrative* Problem Noted Date Resolved Date Status post total replacement of left hip 201608/30/2017 Left hip pain 02/17/2016 08/30/2017 Status post left hip replacement 02/17/2016 08/30/2017 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 02/17/2008/30/2017 DVT (deep venous thrombosis) 01/09/2016 Pain in left knee 06/20/2015 08/30/2017 Abnormality of gait 06/20/2015 08/30/2017 Rheumatoid arthritis involvi ng both hands with positive rheumatoid factor 03/07/2015 04/25/2015 Encounter for long-term current use of medicatio n 10/22/2014 08/30/2017 RA (rheumatoid arthritis) 05/31/20112014 Ventral hernia, unspecified, without mention of obstruction or gangrene 03/09/2011 08/30/2017 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 08/30/2017 Actinic Damage///Sun-Damaged Skin 11/25/2009 09/01/2014 Solar Lentigines 11/25/2009 09/01/2014 Other seborrheic keratosis 11/25/200909/01 Asymptomatic varicose veins 12/10/200708/12 Polymyalgia rheumatica 04/18/2000 0 Edema 04/18/2000 08/30/2017 Lump or mass in breast 04/18/2000 5 Benign neoplasm of breast 2017 Overview: bilat Disorder of bone and cartilage, unspecified 06/14/2009 Overview: history of osteopenia documented as of this encounter (statuses as of 08/30/2022) [facility] History of Past illness Narrative* Problem Noted Date Resolved Date Status post total replacement of left hip 201608/30/2017 Left hip pain 02/17/2016 08/30/2017 Status post left hip replacement 02/17/2016 08/30/2017 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 02/17/2008/30/2017 DVT (deep venous thrombosis) 01/09/2016 Pain in left knee 06/20/2015 08/30/2017 Abnormality of gait 06/20/2015 08/30/2017 Rheumatoid arthritis involvi ng both hands with positive rheumatoid factor 03/07/2015 04/25/2015 Encounter for long-term current use of medicatio n 10/22/2014 08/30/2017 RA (rheumatoid arthritis) 05/31/20112014 Ventral hernia, unspecified, without mention of obstruction or gangrene 03/09/2011 08/30/2017 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 08/30/2017 Actinic Damage///Sun-Damaged Skin 11/25/2009 09/01/2014 Solar Lentigines 11/25/2009 09/01/2014 Other seborrheic keratosis 11/25/200909/01 Asymptomatic varicose veins 12/10/200708/12 Polymyalgia rheumatica 04/18/2000 0 Edema 04/18/2000 08/30/2017 Lump or mass in breast 04/18/2000 5 Benign neoplasm of breast 2017 Overview: bilat Disorder of bone and cartilage, unspecified 06/14/2009 Overview: history of osteopenia documented as of this encounter (statuses as of 09/05/2022) [facility] History of Past illness Narrative* Problem Noted Date Resolved Date Status post total replacement of left hip 201608/30/2017 Left hip pain 02/17/2016 08/30/2017 Status post left hip replacement 02/17/2016 08/30/2017 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 02/17/2008/30/2017 DVT (deep venous thrombosis) 01/09/2016 Pain in left knee 06/20/2015 08/30/2017 Abnormality of gait 06/20/2015 08/30/2017 Rheumatoid arthritis involvi ng both hands with positive rheumatoid factor 03/07/2015 04/25/2015 Encounter for long-term current use of medicatio n 10/22/2014 08/30/2017 RA (rheumatoid arthritis) 05/31/20112014 Ventral hernia, unspecified, without mention of obstruction or gangrene 03/09/2011 08/30/2017 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 08/30/2017 Actinic Damage///Sun-Damaged Skin 11/25/2009 09/01/2014 Solar Lentigines 11/25/2009 09/01/2014 Other seborrheic keratosis 11/25/200909/01 Asymptomatic varicose veins 12/10/200708/12 Polymyalgia rheumatica 04/18/2000 0 Edema 04/18/2000 08/30/2017 Lump or mass in breast 04/18/2000 5 Benign neoplasm of breast 2017 Overview: bilat Disorder of bone and cartilage, unspecified 06/14/2009 Overview: history of osteopenia documented as of this encounter (statuses as of 10/17/2022) [facility] History of Past illness Narrative* Problem Noted Date Resolved Date Status post total replacement of left hip 201608/30/2017 Left hip pain 02/17/2016 08/30/2017 Status post left hip replacement 02/17/2016 08/30/2017 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 02/17/2008/30/2017 DVT (deep venous thrombosis) 01/09/2016 Pain in left knee 06/20/2015 08/30/2017 Abnormality of gait 06/20/2015 08/30/2017 Rheumatoid arthritis involvi ng both hands with positive rheumatoid factor 03/07/2015 04/25/2015 Encounter for long-term current use of medicatio n 10/22/2014 08/30/2017 RA (rheumatoid arthritis) 05/31/20112014 Ventral hernia, unspecified, without mention of obstruction or gangrene 03/09/2011 08/30/2017 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 08/30/2017 Actinic Damage///Sun-Damaged Skin 11/25/2009 09/01/2014 Solar Lentigines 11/25/2009 09/01/2014 Other seborrheic keratosis 11/25/200909/01 Asymptomatic varicose veins 12/10/200708/12 Polymyalgia rheumatica 04/18/2000 0 Edema 04/18/2000 08/30/2017 Lump or mass in breast 04/18/2000 5 Benign neoplasm of breast 2017 Overview: bilat Disorder of bone and cartilage, unspecified 06/14/2009 Overview: history of osteopenia documented as of this encounter (statuses as of 10/25/2022) [facility] History of Past illness Narrative* Problem Noted Date Resolved Date Status post total replacement of left hip 201608/30/2017 Left hip pain 02/17/2016 08/30/2017 Status post left hip replacement 02/17/2016 08/30/2017 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 02/17/2008/30/2017 DVT (deep venous thrombosis) 01/09/2016 Pain in left knee 06/20/2015 08/30/2017 Abnormality of gait 06/20/2015 08/30/2017 Rheumatoid arthritis involvi ng both hands with positive rheumatoid factor 03/07/2015 04/25/2015 Encounter for long-term current use of medicatio n 10/22/2014 08/30/2017 RA (rheumatoid arthritis) 05/31/20112014 Ventral hernia, unspecified, without mention of obstruction or gangrene 03/09/2011 08/30/2017 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 08/30/2017 Actinic Damage///Sun-Damaged Skin 11/25/2009 09/01/2014 Solar Lentigines 11/25/2009 09/01/2014 Other seborrheic keratosis 11/25/200909/01 Asymptomatic varicose veins 12/10/200708/12 Polymyalgia rheumatica 04/18/2000 0 Edema 04/18/2000 08/30/2017 Lump or mass in breast 04/18/2000 5 Benign neoplasm of breast 2017 Overview: bilat Disorder of bone and cartilage, unspecified 06/14/2009 Overview: history of osteopenia documented as of this encounter (statuses as of 10/31/2022) [facility] History of Past illness Narrative* Problem Noted Date Resolved Date Status post total replacement of left hip 201608/30/2017 Left hip pain 02/17/2016 08/30/2017 Status post left hip replacement 02/17/2016 08/30/2017 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 02/17/2008/30/2017 DVT (deep venous thrombosis) 01/09/2016 Pain in left knee 06/20/2015 08/30/2017 Abnormality of gait 06/20/2015 08/30/2017 Rheumatoid arthritis involvi ng both hands with positive rheumatoid factor 03/07/2015 04/25/2015 Encounter for long-term current use of medicatio n 10/22/2014 08/30/2017 RA (rheumatoid arthritis) 05/31/20112014 Ventral hernia, unspecified, without mention of obstruction or gangrene 03/09/2011 08/30/2017 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 08/30/2017 Actinic Damage///Sun-Damaged Skin 11/25/2009 09/01/2014 Solar Lentigines 11/25/2009 09/01/2014 Other seborrheic keratosis 11/25/200909/01 Asymptomatic varicose veins 12/10/200708/12 Polymyalgia rheumatica 04/18/2000 0 Edema 04/18/2000 08/30/2017 Lump or mass in breast 04/18/2000 5 Benign neoplasm of breast 2017 Overview: bilat Disorder of bone and cartilage, unspecified 06/14/2009 Overview: history of osteopenia documented as of this encounter (statuses as of 11/08/2022) [facility] History of Past illness Narrative* Problem Noted Date Resolved Date Status post total replacement of left hip 201608/30/2017 Left hip pain 02/17/2016 08/30/2017 Status post left hip replacement 02/17/2016 08/30/2017 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 02/17/2008/30/2017 DVT (deep venous thrombosis) 01/09/2016 Pain in left knee 06/20/2015 08/30/2017 Abnormality of gait 06/20/2015 08/30/2017 Rheumatoid arthritis involvi ng both hands with positive rheumatoid factor 03/07/2015 04/25/2015 Encounter for long-term current use of medicatio n 10/22/2014 08/30/2017 RA (rheumatoid arthritis) 05/31/20112014 Ventral hernia, unspecified, without mention of obstruction or gangrene 03/09/2011 08/30/2017 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 08/30/2017 Actinic Damage///Sun-Damaged Skin 11/25/2009 09/01/2014 Solar Lentigines 11/25/2009 09/01/2014 Other seborrheic keratosis 11/25/200909/01 Asymptomatic varicose veins 12/10/200708/12 Polymyalgia rheumatica 04/18/2000 0 Edema 04/18/2000 08/30/2017 Lump or mass in breast 04/18/2000 5 Benign neoplasm of breast 2017 Overview: bilat Disorder of bone and cartilage, unspecified 06/14/2009 Overview: history of osteopenia documented as of this encounter (statuses as of 11/12/2022) [facility] History of Past illness Narrative* Problem Noted Date Resolved Date Status post total replacement of left hip 201608/30/2017 Left hip pain 02/17/2016 08/30/2017 Status post left hip replacement 02/17/2016 08/30/2017 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 02/17/20 16 08/30/2017 DVT (deep venous thrombosis) 01/09/2016 Pain in left knee 06/20/2015 08/30/2017 Abnormality of gait 06/20/2015 08/30/2017 Rheumatoid arthritis involvi ng both hands with positive rheumatoid factor 03/07/2015 04/25/2015 Encounter for long-term current use of medicatio n 10/22/2014 08/30/2017 RA (rheumatoid arthritis) 05/31/20112014 Ventral hernia, unspecified, without mention of obstruction or gangrene 03/09/2011 08/30/2017 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 08/30/2017 Actinic Damage///Sun-Damaged Skin 11/25/2009 09/01/2014 Solar Lentigines 11/25/2009 09/01/2014 Other seborrheic keratosis 11/25/200909/01 Asymptomatic varicose veins 12/10/200708/12 Polymyalgia rheumatica 04/18/2000 0 Edema 04/18/2000 08/30/2017 Lump or mass in breast 04/18/2000 5 Benign neoplasm of breast 2017 Overview: bilat Disorder of bone and cartilage, unspecified 06/14/2009 Overview: history of osteopenia documented as of this encounter (statuses as of 11/15/2022) [facility] History of Past illness Narrative* Problem Noted Date Diagnosed Date Resolved Date Status post total replacement of left hip 04/18/2017 08/30/2017 Left hip pain 02/17/2016 08/30/2017 Status post left hip replacement 02/17/2016 08/30/2017 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 02/17/2016 08/30/2017 DVT (deep venous thrombosis) 01/09/2016 08/30/2017 Pain in left knee 06/20/2015 08/30/2017 Abnormality of gait 06/20/2015 08/31/19 18 Rheumatoid arthritis involvi ng both hands with positive rheumatoid factor 03/07/2015 04/25/20 15 Encounter for long-term curr ent use of medication 10/22/2014 08/30/2017 RA (rheumatoid arthritis) 05/31/2011 Ventral hernia, unspecified, without mention of obstruction or gangrene 03/09/2011 08/30/2017 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 08/30/2017 Actinic Damage///Sun-Damaged Skin 11/25/2009 09/01/2014 Solar Lentigines 11/25/2009 09/01/2014 Other seborrheic keratosis 11/25/2009 0 09/01/2014 Asymptomatic varicose veins 12/10/2007 09/01/2014 Polymyalgia rheumatica 04/18/200006/14 Edema 04/18/2000 08/30/2017 Lump or mass in breast 04/18/200009/01 Benign neoplasm of breast Overview: bilat Disorder of bone and cartilage, unspecified 06/14/2009 Overview: history of osteopenia documented as of this encounter (statuses as of 11/20/2022) [facility] History of Past illness Narrative* Problem Noted Date Diagnosed Date Resolved Date Status post total replacement of left hip 04/18/2017 08/30/2017 Left hip pain 02/17/2016 08/30/2017 Status post left hip replacement 02/17/2016 08/30/2017 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 02/17/2016 08/30/2017 DVT (deep venous thrombosis) 01/09/2016 08/30/2017 Pain in left knee 06/20/2015 08/30/2017 Abnormality of gait 06/20/2015 08/31/19 18 Rheumatoid arthritis involvi ng both hands with positive rheumatoid factor 03/07/2015 04/25/20 15 Encounter for long-term curr ent use of medication 10/22/2014 08/30/2017 RA (rheumatoid arthritis) 05/31/2011 Ventral hernia, unspecified, without mention of obstruction or gangrene 03/09/2011 08/30/2017 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 08/30/2017 Actinic Damage///Sun-Damaged Skin 11/25/2009 09/01/2014 Solar Lentigines 11/25/2009 09/01/2014 Other seborrheic keratosis 11/25/2009 0 09/01/2014 Asymptomatic varicose veins 12/10/2007 09/01/2014 Polymyalgia rheumatica 04/18/200006/14 Edema 04/18/2000 08/30/2017 Lump or mass in breast 04/18/200009/01 Benign neoplasm of breast Overview: bilat Disorder of bone and cartilage, unspecified 06/14/2009 Overview: history of osteopenia documented as of this encounter (statuses as of 11/29/2022) [facility] History of Past illness Narrative* Problem Noted Date Diagnosed Date Resolved Date Status post total replacement of left hip 04/18/2017 08/30/2017 Left hip pain 02/17/2016 08/30/2017 Status post left hip replacement 02/17/2016 08/30/2017 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 02/17/2016 08/30/2017 DVT (deep venous thrombosis) 01/09/2016 08/30/2017 Pain in left knee 06/20/2015 08/30/2017 Abnormality of gait 06/20/2015 08/31/19 18 Rheumatoid arthritis involvi ng both hands with positive rheumatoid factor 03/07/2015 04/25/20 15 Encounter for long-term curr ent use of medication 10/22/2014 08/30/2017 RA (rheumatoid arthritis) 05/31/2011 Ventral hernia, unspecified, without mention of obstruction or gangrene 03/09/2011 08/30/2017 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 08/30/2017 Actinic Damage///Sun-Damaged Skin 11/25/2009 09/01/2014 Solar Lentigines 11/25/2009 09/01/2014 Other seborrheic keratosis 11/25/2009 0 09/01/2014 Asymptomatic varicose veins 12/10/2007 09/01/2014 Polymyalgia rheumatica 04/18/200006/14 Edema 04/18/2000 08/30/2017 Lump or mass in breast 04/18/200009/01 Benign neoplasm of breast Overview: bilat Disorder of bone and cartilage, unspecified 06/14/2009 Overview: history of osteopenia documented as of this encounter (statuses as of 12/06/2022) [facility] History of Past illness Narrative* Problem Noted Date Diagnosed Date Resolved Date Status post total replacement of left hip 04/18/2017 08/30/2017 Left hip pain 02/17/2016 08/30/2017 Status post left hip replacement 02/17/2016 08/30/2017 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 02/17/2016 08/30/2017 DVT (deep venous thrombosis) 01/09/2016 08/30/2017 Pain in left knee 06/20/2015 08/30/2017 Abnormality of gait 06/20/2015 08/31/19 18 Rheumatoid arthritis involvi ng both hands with positive rheumatoid factor 03/07/2015 04/25/20 15 Encounter for long-term curr ent use of medication 10/22/2014 08/30/2017 RA (rheumatoid arthritis) 05/31/2011 Ventral hernia, unspecified, without mention of obstruction or gangrene 03/09/2011 08/30/2017 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 08/30/2017 Actinic Damage///Sun-Damaged Skin 11/25/2009 09/01/2014 Solar Lentigines 11/25/2009 09/01/2014 Other seborrheic keratosis 11/25/2009 0 09/01/2014 Asymptomatic varicose veins 12/10/2007 09/01/2014 Polymyalgia rheumatica 04/18/200006/14 Edema 04/18/2000 08/30/2017 Lump or mass in breast 04/18/200009/01 Benign neoplasm of breast Overview: bilat Disorder of bone and cartilage, unspecified 06/14/2009 Overview: history of osteopenia documented as of this encounter (statuses as of 12/14/2022) [facility]2017 History of Past illness Narrative* Problem Noted Date Diagnosed Date Resolved Date Status post total replacement of left hip 04/18/2017 08/30/2017 Left hip pain 02/17/2016 08/30/2017 Status post left hip replacement 02/17/2016 08/30/2017 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 02/17/2016 08/30/2017 DVT (deep venous thrombosis) 01/09/2016 08/30/2017 Pain in left knee 06/20/2015 08/30/2017 Abnormality of gait 06/20/2015 08/31/19 18 Rheumatoid arthritis involvi ng both hands with positive rheumatoid factor 03/07/2015 04/25/20 15 Encounter for long-term curr ent use of medication 10/22/2014 08/30/2017 RA (rheumatoid arthritis) 05/31/2011 Ventral hernia, unspecified, without mention of obstruction or gangrene 03/09/2011 08/30/2017 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 08/30/2017 Actinic Damage///Sun-Damaged Skin 11/25/2009 09/01/2014 Solar Lentigines 11/25/2009 09/01/2014 Other seborrheic keratosis 11/25/2009 0 09/01/2014 Asymptomatic varicose veins 12/10/2007 09/01/2014 Polymyalgia rheumatica 04/18/200006/14 Edema 04/18/2000 08/30/2017 Lump or mass in breast 04/18/200009/01 Benign neoplasm of breast Overview: bilat Disorder of bone and cartilage, unspecified 06/14/2009 Overview: history of osteopenia documented as of this encounter (statuses as of 12/21/2022) [facility] History of Past illness Narrative* Problem Noted Date Diagnosed Date Resolved Date Status post total replacement of left hip 04/18/2017 08/30/2017 Left hip pain 02/17/2016 08/30/2017 Status post left hip replacement 02/17/2016 08/30/2017 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 02/17/2016 08/30/2017 DVT (deep venous thrombosis) 01/09/2016 08/30/2017 Pain in left knee 06/20/2015 08/30/2017 Abnormality of gait 06/20/2015 08/31/19 18 Rheumatoid arthritis involvi ng both hands with positive rheumatoid factor 03/07/2015 04/25/20 15 Encounter for long-term curr ent use of medication 10/22/2014 08/30/2017 RA (rheumatoid arthritis) 05/31/2011 Ventral hernia, unspecified, without mention of obstruction or gangrene 03/09/2011 08/30/2017 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 08/30/2017 Actinic Damage///Sun-Damaged Skin 11/25/2009 09/01/2014 Solar Lentigines 11/25/2009 09/01/2014 Other seborrheic keratosis 11/25/2009 0 09/01/2014 Asymptomatic varicose veins 12/10/2007 09/01/2014 Polymyalgia rheumatica 04/18/200006/14 Edema 04/18/2000 08/30/2017 Lump or mass in breast 04/18/200009/01 Benign neoplasm of breast Overview: bilat Disorder of bone and cartilage, unspecified 06/14/2009 Overview: history of osteopenia documented as of this encounter (statuses as of 01/11/2023) [facility] History of Past illness Narrative* Problem Noted Date Diagnosed Date Resolved Date Status post total replacement of left hip 04/18/2017 08/30/2017 Left hip pain 02/17/2016 08/30/2017 Status post left hip replacement 02/17/2016 08/30/2017 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 02/17/2016 08/30/2017 DVT (deep venous thrombosis) 01/09/2016 08/30/2017 Pain in left knee 06/20/2015 08/30/2017 Abnormality of gait 06/20/2015 08/31/19 18 Rheumatoid arthritis involvi ng both hands with positive rheumatoid factor 03/07/2015 04/25/20 15 Encounter for long-term curr ent use of medication 10/22/2014 08/30/2017 RA (rheumatoid arthritis) 05/31/2011 Ventral hernia, unspecified, without mention of obstruction or gangrene 03/09/2011 08/30/2017 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 08/30/2017 Actinic Damage///Sun-Damaged Skin 11/25/2009 09/01/2014 Solar Lentigines 11/25/2009 09/01/2014 Other seborrheic keratosis 11/25/2009 0 09/01/2014 Asymptomatic varicose veins 12/10/2007 09/01/2014 Polymyalgia rheumatica 04/18/200006/14 Edema 04/18/2000 08/30/2017 Lump or mass in breast 04/18/200009/01 Benign neoplasm of breast Overview: bilat Disorder of bone and cartilage, unspecified 06/14/2009 Overview: history of osteopenia documented as of this encounter (statuses as of 01/17/2023) [facility] History of Past illness Narrative* Problem Noted Date Diagnosed Date Resolved Date Status post total replacement of left hip 04/18/2017 08/30/2017 Left hip pain 02/17/2016 08/30/2017 Status post left hip replacement 02/17/2016 08/30/2017 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 02/17/2016 08/30/2017 DVT (deep venous thrombosis) 01/09/2016 08/30/2017 Pain in left knee 06/20/2015 08/30/2017 Abnormality of gait 06/20/2015 08/31/19 18 Rheumatoid arthritis involvi ng both hands with positive rheumatoid factor 03/07/2015 04/25/20 15 Encounter for long-term curr ent use of medication 10/22/2014 08/30/2017 RA (rheumatoid arthritis) 05/31/2011 Ventral hernia, unspecified, without mention of obstruction or gangrene 03/09/2011 08/30/2017 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 08/30/2017 Actinic Damage///Sun-Damaged Skin 11/25/2009 09/01/2014 Solar Lentigines 11/25/2009 09/01/2014 Other seborrheic keratosis 11/25/2009 0 09/01/2014 Asymptomatic varicose veins 12/10/2007 09/01/2014 Polymyalgia rheumatica 04/18/200006/14 Edema 04/18/2000 08/30/2017 Lump or mass in breast 04/18/200009/01 Benign neoplasm of breast Overview: bilat Disorder of bone and cartilage, unspecified 06/14/2009 Overview: history of osteopenia documented as of this encounter (statuses as of 02/08/2023) [facility] History of Past illness Narrative* Problem Noted Date Diagnosed Date Resolved Date Status post total replacement of left hip 04/18/2017 08/30/2017 Left hip pain 02/17/2016 08/30/2017 Status post left hip replacement 02/17/2016 08/30/2017 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 (HCC) 02/17/20 16 08/30/2017 DVT (deep venous thrombosis) 01/09/2016 08/30/2017 Pain in left knee 06/20/2015 08/30/2017 Abnormality of gait 06/20/2015 08/31/19 18 Rheumatoid arthritis involvi ng both hands with positive rheumatoid factor 03/07/2015 04/25/20 15 Encounter for long-term curr ent use of medication 10/22/2014 08/30/2017 RA (rheumatoid arthritis) 05/31/2011 Ventral hernia, unspecified, without mention of obstruction or gangrene 03/09/2011 08/30/2017 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 08/30/2017 Actinic Damage///Sun-Damaged Skin 11/25/2009 09/01/2014 Solar Lentigines 11/25/2009 09/01/2014 Other seborrheic keratosis 11/25/2009 0 09/01/2014 Asymptomatic varicose veins 12/10/2007 09/01/2014 Polymyalgia rheumatica 04/18/200006/14 Edema 04/18/2000 08/30/2017 Lump or mass in breast 04/18/200009/01 Benign neoplasm of breast Overview: bilat Disorder of bone and cartilage, unspecified 06/14/2009 Overview: history of osteopenia documented as of this encounter (statuses as of 02/16/2023) [facility] History of Past illness Narrative* Problem Noted Date Diagnosed Date Resolved Date Status post total replacement of left hip 04/18/2017 08/30/2017 Left hip pain 02/17/2016 08/30/2017 Status post left hip replacement 02/17/2016 08/30/2017 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 (HCC) 02/17/2008/30/2017 DVT (deep venous thrombosis) 01/09/2016 08/30/2017 Pain in left knee 06/20/2015 08/30/2017 Abnormality of gait 06/20/2015 08/31/19 18 Rheumatoid arthritis involvi ng both hands with positive rheumatoid factor 03/07/2015 04/25/20 15 Encounter for long-term curr ent use of medication 10/22/2014 08/30/2017 RA (rheumatoid arthritis) 05/31/2011 Ventral hernia, unspecified, without mention of obstruction or gangrene 03/09/2011 08/30/2017 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 08/30/2017 Actinic Damage///Sun-Damaged Skin 11/25/2009 09/01/2014 Solar Lentigines 11/25/2009 09/01/2014 Other seborrheic keratosis 11/25/2009 0 09/01/2014 Asymptomatic varicose veins 12/10/2007 09/01/2014 Polymyalgia rheumatica 04/18/200006/14 Edema 04/18/2000 08/30/2017 Lump or mass in breast 04/18/200009/01 Benign neoplasm of breast Overview: bilat Disorder of bone and cartilage, unspecified 06/14/2009 Overview: history of osteopenia documented as of this encounter (statuses as of 02/25/2023) [facility] History of Past illness Narrative* Problem Noted Date Diagnosed Date Resolved Date Status post total replacement of left hip 04/18/2017 08/30/2017 Left hip pain 02/17/2016 08/30/2017 Status post left hip replacement 02/17/2016 08/30/2017 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 (HCC) 02/17/20 16 08/30/2017 DVT (deep venous thrombosis) 01/09/2016 08/30/2017 Pain in left knee 06/20/2015 08/30/2017 Abnormality of gait 06/20/2015 08/31/19 18 Rheumatoid arthritis involvi ng both hands with positive rheumatoid factor 03/07/2015 04/25/20 15 Encounter for long-term curr ent use of medication 10/22/2014 08/30/2017 RA (rheumatoid arthritis) 05/31/2011 Ventral hernia, unspecified, without mention of obstruction or gangrene 03/09/2011 08/30/2017 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 08/30/2017 Actinic Damage///Sun-Damaged Skin 11/25/2009 09/01/2014 Solar Lentigines 11/25/2009 09/01/2014 Other seborrheic keratosis 11/25/2009 0 09/01/2014 Asymptomatic varicose veins 12/10/2007 09/01/2014 Polymyalgia rheumatica 04/18/200006/14 Edema 04/18/2000 08/30/2017 Lump or mass in breast 04/18/200009/01 Benign neoplasm of breast Overview: bilat Disorder of bone and cartilage, unspecified 06/14/2009 Overview: history of osteopenia documented as of this encounter (statuses as of 03/11/2023) [facility] History of Past illness Narrative* Problem Noted Date Diagnosed Date Resolved Date Status post total replacement of left hip 04/18/2017 08/30/2017 Left hip pain 02/17/2016 08/30/2017 Status post left hip replacement 02/17/2016 08/30/2017 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 (HCC) 02/17/20 16 08/30/2017 DVT (deep venous thrombosis) 01/09/2016 08/30/2017 Pain in left knee 06/20/2015 08/30/2017 Abnormality of gait 06/20/2015 08/31/19 18 Rheumatoid arthritis involvi ng both hands with positive rheumatoid factor 03/07/2015 04/25/20 15 Encounter for long-term curr ent use of medication 10/22/2014 08/30/2017 RA (rheumatoid arthritis) 05/31/2011 Ventral hernia, unspecified, without mention of obstruction or gangrene 03/09/2011 08/30/2017 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 08/30/2017 Actinic Damage///Sun-Damaged Skin 11/25/2009 09/01/2014 Solar Lentigines 11/25/2009 09/01/2014 Other seborrheic keratosis 11/25/2009 0 09/01/2014 Asymptomatic varicose veins 12/10/2007 09/01/2014 Polymyalgia rheumatica 04/18/200006/14 Edema 04/18/2000 08/30/2017 Lump or mass in breast 04/18/200009/01 Benign neoplasm of breast Overview: bilat Disorder of bone and cartilage, unspecified 06/14/2009 Overview: history of osteopenia documented as of this encounter (statuses as of 03/14/2023) [facility] History of Past illness Narrative* Problem Noted Date Diagnosed Date Resolved Date Status post total replacement of left hip 04/18/2017 08/30/2017 Left hip pain 02/17/2016 08/30/2017 Status post left hip replacement 02/17/2016 08/30/2017 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 02/17/2016 08/30/2017 DVT (deep venous thrombosis) 01/09/2016 08/30/2017 Pain in left knee 06/20/2015 08/30/2017 Abnormality of gait 06/20/2015 08/31/19 18 Rheumatoid arthritis involvi ng both hands with positive rheumatoid factor 03/07/2015 04/25/20 15 Encounter for long-term curr ent use of medication 10/22/2014 08/30/2017 RA (rheumatoid arthritis) 05/31/2011 Ventral hernia, unspecified, without mention of obstruction or gangrene 03/09/2011 08/30/2017 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 08/30/2017 Actinic Damage///Sun-Damaged Skin 11/25/2009 09/01/2014 Solar Lentigines 11/25/2009 09/01/2014 Other seborrheic keratosis 11/25/2009 0 09/01/2014 Asymptomatic varicose veins 12/10/2007 09/01/2014 Polymyalgia rheumatica 04/18/200006/14 Edema 04/18/2000 08/30/2017 Lump or mass in breast 04/18/200009/01 Benign neoplasm of breast Overview: bilat Disorder of bone and cartilage, unspecified 06/14/2009 Overview: history of osteopenia documented as of this encounter (statuses as of 03/15/2023) [facility] History of Past illness Narrative* Problem Noted Date Diagnosed Date Resolved Date Status post total replacement of left hip 04/18/2017 08/30/2017 Left hip pain 02/17/2016 08/30/2017 Status post left hip replacement 02/17/2016 08/30/2017 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 (HCC) 02/17/2008/30/2017 DVT (deep venous thrombosis) 01/09/2016 08/30/2017 Pain in left knee 06/20/2015 08/30/2017 Abnormality of gait 06/20/2015 08/31/19 18 Rheumatoid arthritis involvi ng both hands with positive rheumatoid factor 03/07/2015 04/25/20 15 Encounter for long-term curr ent use of medication 10/22/2014 08/30/2017 RA (rheumatoid arthritis) 05/31/2011 Ventral hernia, unspecified, without mention of obstruction or gangrene 03/09/2011 08/30/2017 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 08/30/2017 Actinic Damage///Sun-Damaged Skin 11/25/2009 09/01/2014 Solar Lentigines 11/25/2009 09/01/2014 Other seborrheic keratosis 11/25/2009 0 09/01/2014 Asymptomatic varicose veins 12/10/2007 09/01/2014 Polymyalgia rheumatica 04/18/200006/14 Edema 04/18/2000 08/30/2017 Lump or mass in breast 04/18/200009/01 Benign neoplasm of breast Overview: bilat Disorder of bone and cartilage, unspecified 06/14/2009 Overview: history of osteopenia documented as of this encounter (statuses as of 03/20/2023) [facility] History of Past illness Narrative* Problem Noted Date Diagnosed Date Resolved Date Status post total replacement of left hip 04/18/2017 08/30/2017 Left hip pain 02/17/2016 08/30/2017 Status post left hip replacement 02/17/2016 08/30/2017 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 (HCC) 02/17/2008/30/2017 DVT (deep venous thrombosis) 01/09/2016 08/30/2017 Pain in left knee 06/20/2015 08/30/2017 Abnormality of gait 06/20/2015 08/31/19 18 Rheumatoid arthritis involvi ng both hands with positive rheumatoid factor 03/07/2015 04/25/20 15 Encounter for long-term curr ent use of medication 10/22/2014 08/30/2017 RA (rheumatoid arthritis) 05/31/2011 Ventral hernia, unspecified, without mention of obstruction or gangrene 03/09/2011 08/30/2017 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 08/30/2017 Actinic Damage///Sun-Damaged Skin 11/25/2009 09/01/2014 Solar Lentigines 11/25/2009 09/01/2014 Other seborrheic keratosis 11/25/2009 0 09/01/2014 Asymptomatic varicose veins 12/10/2007 09/01/2014 Polymyalgia rheumatica 04/18/200006/14 Edema 04/18/2000 08/30/2017 Lump or mass in breast 04/18/200009/01 Benign neoplasm of breast Overview: bilat Disorder of bone and cartilage, unspecified 06/14/2009 Overview: history of osteopenia documented as of this encounter (statuses as of 04/11/2023) [facility] History of Past illness Narrative* Problem Noted Date Diagnosed Date Resolved Date Status post total replacement of left hip 04/18/2017 08/30/2017 Left hip pain 02/17/2016 08/30/2017 Status post left hip replacement 02/17/2016 08/30/2017 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 (HCC) 02/17/20 16 08/30/2017 DVT (deep venous thrombosis) 01/09/2016 08/30/2017 Pain in left knee 06/20/2015 08/30/2017 Abnormality of gait 06/20/2015 08/31/19 18 Rheumatoid arthritis involvi ng both hands with positive rheumatoid factor 03/07/2015 04/25/20 15 Encounter for long-term curr ent use of medication 10/22/2014 08/30/2017 RA (rheumatoid arthritis) 05/31/2011 Ventral hernia, unspecified, without mention of obstruction or gangrene 03/09/2011 08/30/2017 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 08/30/2017 Actinic Damage///Sun-Damaged Skin 11/25/2009 09/01/2014 Solar Lentigines 11/25/2009 09/01/2014 Other seborrheic keratosis 11/25/2009 0 09/01/2014 Asymptomatic varicose veins 12/10/2007 09/01/2014 Polymyalgia rheumatica 04/18/200006/14 Edema 04/18/2000 08/30/2017 Lump or mass in breast 04/18/200009/01 Benign neoplasm of breast Overview: bilat Disorder of bone and cartilage, unspecified 06/14/2009 Overview: history of osteopenia documented as of this encounter (statuses as of 04/12/2023) [facility] History of Past illness Narrative* Problem Noted Date Diagnosed Date Resolved Date Status post total replacement of left hip 04/18/2017 08/30/2017 Left hip pain 02/17/2016 08/30/2017 Status post left hip replacement 02/17/2016 08/30/2017 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 (HCC) 02/17/20 16 08/30/2017 DVT (deep venous thrombosis) 01/09/2016 08/30/2017 Pain in left knee 06/20/2015 08/30/2017 Abnormality of gait 06/20/2015 08/31/19 18 Rheumatoid arthritis involvi ng both hands with positive rheumatoid factor 03/07/2015 04/25/20 15 Encounter for long-term curr ent use of medication 10/22/2014 08/30/2017 RA (rheumatoid arthritis) 05/31/2011 Ventral hernia, unspecified, without mention of obstruction or gangrene 03/09/2011 08/30/2017 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 08/30/2017 Actinic Damage///Sun-Damaged Skin 11/25/2009 09/01/2014 Solar Lentigines 11/25/2009 09/01/2014 Other seborrheic keratosis 11/25/2009 0 09/01/2014 Asymptomatic varicose veins 12/10/2007 09/01/2014 Polymyalgia rheumatica 04/18/200006/14 Edema 04/18/2000 08/30/2017 Lump or mass in breast 04/18/200009/01 Benign neoplasm of breast Overview: bilat Disorder of bone and cartilage, unspecified 06/14/2009 Overview: history of osteopenia documented as of this encounter (statuses as of 04/15/2023) [facility] History of Past illness Narrative* Problem Noted Date Diagnosed Date Resolved Date Status post total replacement of left hip 04/18/2017 08/30/2017 Left hip pain 02/17/2016 08/30/2017 Status post left hip replacement 02/17/2016 08/30/2017 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 (HCC) 02/17/20 16 08/30/2017 DVT (deep venous thrombosis) 01/09/2016 08/30/2017 Pain in left knee 06/20/2015 08/30/2017 Abnormality of gait 06/20/2015 08/31/19 18 Rheumatoid arthritis involvi ng both hands with positive rheumatoid factor 03/07/2015 04/25/20 15 Encounter for long-term curr ent use of medication 10/22/2014 08/30/2017 RA (rheumatoid arthritis) 05/31/2011 Ventral hernia, unspecified, without mention of obstruction or gangrene 03/09/2011 08/30/2017 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 08/30/2017 Actinic Damage///Sun-Damaged Skin 11/25/2009 09/01/2014 Solar Lentigines 11/25/2009 09/01/2014 Other seborrheic keratosis 11/25/2009 0 09/01/2014 Asymptomatic varicose veins 12/10/2007 09/01/2014 Polymyalgia rheumatica 04/18/200006/14 Edema 04/18/2000 08/30/2017 Lump or mass in breast 04/18/200009/01 Benign neoplasm of breast Overview: bilat Disorder of bone and cartilage, unspecified 06/14/2009 Overview: history of osteopenia documented as of this encounter (statuses as of 04/23/2023) [facility] History of Past illness Narrative* Problem Noted Date Diagnosed Date Resolved Date Status post total replacement of left hip 04/18/2017 08/30/2017 Left hip pain 02/17/2016 08/30/2017 Status post left hip replacement 02/17/2016 08/30/2017 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 02/17/2016 08/30/2017 DVT (deep venous thrombosis) 01/09/2016 08/30/2017 Abnormality of gait 06/20/2015 08/31/19 18 Rheumatoid arthritis involvi ng both hands with positive rheumatoid factor 03/07/2015 04/25/20 15 Encounter for long-term curr ent use of medication 10/22/2014 08/30/2017 RA (rheumatoid arthritis) 05/31/2011 Ventral hernia, unspecified, without mention of obstruction or gangrene 03/09/2011 08/30/2017 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 08/30/2017 Actinic Damage///Sun-Damaged Skin 11/25/2009 09/01/2014 Solar Lentigines 11/25/2009 09/01/2014 Other seborrheic keratosis 11/25/2009 0 09/01/2014 Asymptomatic varicose veins 12/10/2007 09/01/2014 Polymyalgia rheumatica 04/18/200006/14 Edema 04/18/2000 08/30/2017 Lump or mass in breast 04/18/200009/01 Benign neoplasm of breast Overview: bilat Disorder of bone and cartilage, unspecified 06/14/2009 Overview: history of osteopenia documented as of this encounter (statuses as of 06/27/2023) [facility] History of Past illness Narrative* Problem Noted Date Diagnosed Date Resolved Date Status post total replacement of left hip 04/18/2017 08/30/2017 Left hip pain 02/17/2016 08/30/2017 Status post left hip replacement 02/17/2016 08/30/2017 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 02/17/2016 08/30/2017 DVT (deep venous thrombosis) 01/09/2016 08/30/2017 Abnormality of gait 06/20/2015 08/31/19 18 Rheumatoid arthritis involvi ng both hands with positive rheumatoid factor 03/07/2015 04/25/20 15 Encounter for long-term curr ent use of medication 10/22/2014 08/30/2017 RA (rheumatoid arthritis) 05/31/2011 Ventral hernia, unspecified, without mention of obstruction or gangrene 03/09/2011 08/30/2017 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 08/30/2017 Actinic Damage///Sun-Damaged Skin 11/25/2009 09/01/2014 Solar Lentigines 11/25/2009 09/01/2014 Other seborrheic keratosis 11/25/2009 0 09/01/2014 Asymptomatic varicose veins 12/10/2007 09/01/2014 Polymyalgia rheumatica 04/18/200006/14 Edema 04/18/2000 08/30/2017 Lump or mass in breast 04/18/200009/01 Benign neoplasm of breast Overview: bilat Disorder of bone and cartilage, unspecified 06/14/2009 Overview: history of osteopenia documented as of this encounter (statuses as of 07/02/2023) [facility] History of Past illness Narrative* Problem Noted Date Diagnosed Date Resolved Date Status post total replacement of left hip 04/18/2017 08/30/2017 Left hip pain 02/17/2016 08/30/2017 Status post left hip replacement 02/17/2016 08/30/2017 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 02/17/2016 08/30/2017 DVT (deep venous thrombosis) 01/09/2016 08/30/2017 Abnormality of gait 06/20/2015 08/31/19 18 Rheumatoid arthritis involvi ng both hands with positive rheumatoid factor 03/07/2015 04/25/20 15 Encounter for long-term curr ent use of medication 10/22/2014 08/30/2017 RA (rheumatoid arthritis) 05/31/2011 Ventral hernia, unspecified, without mention of obstruction or gangrene 03/09/2011 08/30/2017 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 08/30/2017 Actinic Damage///Sun-Damaged Skin 11/25/2009 09/01/2014 Solar Lentigines 11/25/2009 09/01/2014 Other seborrheic keratosis 11/25/2009 0 09/01/2014 Asymptomatic varicose veins 12/10/2007 09/01/2014 Polymyalgia rheumatica 04/18/200006/14 Edema 04/18/2000 08/30/2017 Lump or mass in breast 04/18/200009/01 Benign neoplasm of breast Overview: bilat Disorder of bone and cartilage, unspecified 06/14/2009 Overview: history of osteopenia documented as of this encounter (statuses as of 07/03/2023) [facility] History of Past illness Narrative* Problem Noted Date Diagnosed Date Resolved Date Status post total replacement of left hip 04/18/2017 08/30/2017 Left hip pain 02/17/2016 08/30/2017 Status post left hip replacement 02/17/2016 08/30/2017 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 02/17/2016 08/30/2017 DVT (deep venous thrombosis) 01/09/2016 08/30/2017 Abnormality of gait 06/20/2015 08/31/19 18 Rheumatoid arthritis involvi ng both hands with positive rheumatoid factor 03/07/2015 04/25/20 15 Encounter for long-term curr ent use of medication 10/22/2014 08/30/2017 RA (rheumatoid arthritis) 05/31/2011 Ventral hernia, unspecified, without mention of obstruction or gangrene 03/09/2011 08/30/2017 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 08/30/2017 Actinic Damage///Sun-Damaged Skin 11/25/2009 09/01/2014 Solar Lentigines 11/25/2009 09/01/2014 Other seborrheic keratosis 11/25/2009 0 09/01/2014 Asymptomatic varicose veins 12/10/2007 09/01/2014 Polymyalgia rheumatica 04/18/200006/14 Edema 04/18/2000 08/30/2017 Lump or mass in breast 04/18/200009/01 Benign neoplasm of breast Overview: bilat Disorder of bone and cartilage, unspecified 06/14/2009 Overview: history of osteopenia documented as of this encounter (statuses as of 07/03/2023) [facility]12-07-2017 History of Past illness Narrative* Problem Noted Date Diagnosed Date Resolved Date Status post total replacement of left hip 04/18/2017 08/30/2017 Left hip pain 02/17/2016 08/30/2017 Status post left hip replacement 02/17/2016 08/30/2017 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 02/17/2016 08/30/2017 DVT (deep venous thrombosis) 01/09/2016 08/30/2017 Abnormality of gait 06/20/2015 08/31/19 18 Rheumatoid arthritis involvi ng both hands with positive rheumatoid factor 03/07/2015 04/25/20 15 Encounter for long-term curr ent use of medication 10/22/2014 08/30/2017 RA (rheumatoid arthritis) 05/31/2011 Ventral hernia, unspecified, without mention of obstruction or gangrene 03/09/2011 08/30/2017 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 08/30/2017 Actinic Damage///Sun-Damaged Skin 11/25/2009 09/01/2014 Solar Lentigines 11/25/2009 09/01/2014 Other seborrheic keratosis 11/25/2009 0 09/01/2014 Asymptomatic varicose veins 12/10/2007 09/01/2014 Polymyalgia rheumatica 04/18/200006/14 Edema 04/18/2000 08/30/2017 Lump or mass in breast 04/18/200009/01 Benign neoplasm of breast Overview: bilat Disorder of bone and cartilage, unspecified 06/14/2009 Overview: history of osteopenia documented as of this encounter (statuses as of 07/05/2023) [facility] History of Past illness Narrative* Problem Noted Date Diagnosed Date Resolved Date Status post total replacement of left hip 04/18/2017 08/30/2017 Left hip pain 02/17/2016 08/30/2017 Status post left hip replacement 02/17/2016 08/30/2017 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 02/17/2016 08/30/2017 DVT (deep venous thrombosis) 01/09/2016 08/30/2017 Abnormality of gait 06/20/2015 08/31/19 18 Rheumatoid arthritis involvi ng both hands with positive rheumatoid factor 03/07/2015 04/25/20 15 Encounter for long-term curr ent use of medication 10/22/2014 08/30/2017 RA (rheumatoid arthritis) 05/31/2011 Ventral hernia, unspecified, without mention of obstruction or gangrene 03/09/2011 08/30/2017 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 08/30/2017 Actinic Damage///Sun-Damaged Skin 11/25/2009 09/01/2014 Solar Lentigines 11/25/2009 09/01/2014 Other seborrheic keratosis 11/25/2009 0 09/01/2014 Asymptomatic varicose veins 12/10/2007 09/01/2014 Polymyalgia rheumatica 04/18/200006/14 Edema 04/18/2000 08/30/2017 Lump or mass in breast 04/18/200009/01 Benign neoplasm of breast Overview: bilat Disorder of bone and cartilage, unspecified 06/14/2009 Overview: history of osteopenia documented as of this encounter (statuses as of 07/17/2023) [facility] History of Past illness Narrative* Problem Noted Date Diagnosed Date Resolved Date Status post total replacement of left hip 04/18/2017 08/30/2017 Left hip pain 02/17/2016 08/30/2017 Status post left hip replacement 02/17/2016 08/30/2017 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 02/17/2016 08/30/2017 DVT (deep venous thrombosis) 01/09/2016 08/30/2017 Abnormality of gait 06/20/2015 08/31/19 18 Rheumatoid arthritis involvi ng both hands with positive rheumatoid factor 03/07/2015 04/25/20 15 Encounter for long-term curr ent use of medication 10/22/2014 08/30/2017 RA (rheumatoid arthritis) 05/31/2011 Ventral hernia, unspecified, without mention of obstruction or gangrene 03/09/2011 08/30/2017 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 08/30/2017 Actinic Damage///Sun-Damaged Skin 11/25/2009 09/01/2014 Solar Lentigines 11/25/2009 09/01/2014 Other seborrheic keratosis 11/25/2009 0 09/01/2014 Asymptomatic varicose veins 12/10/2007 09/01/2014 Polymyalgia rheumatica 04/18/200006/14 Edema 04/18/2000 08/30/2017 Lump or mass in breast 04/18/200009/01 Benign neoplasm of breast Overview: bilat Disorder of bone and cartilage, unspecified 06/14/2009 Overview: history of osteopenia documented as of this encounter (statuses as of 07/23/2023) [facility] History of Past illness Narrative* Problem Noted Date Diagnosed Date Resolved Date Status post total replacement of left hip 04/18/2017 08/30/2017 Left hip pain 02/17/2016 08/30/2017 Status post left hip replacement 02/17/2016 08/30/2017 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 02/17/2016 08/30/2017 DVT (deep venous thrombosis) 01/09/2016 08/30/2017 Abnormality of gait 06/20/2015 08/31/19 18 Rheumatoid arthritis involvi ng both hands with positive rheumatoid factor 03/07/2015 04/25/20 15 Encounter for long-term curr ent use of medication 10/22/2014 08/30/2017 RA (rheumatoid arthritis) 05/31/2011 Ventral hernia, unspecified, without mention of obstruction or gangrene 03/09/2011 08/30/2017 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 08/30/2017 Actinic Damage///Sun-Damaged Skin 11/25/2009 09/01/2014 Solar Lentigines 11/25/2009 09/01/2014 Other seborrheic keratosis 11/25/2009 0 09/01/2014 Asymptomatic varicose veins 12/10/2007 09/01/2014 Polymyalgia rheumatica 04/18/200006/14 Edema 04/18/2000 08/30/2017 Lump or mass in breast 04/18/200009/01 Benign neoplasm of breast Overview: bilat Disorder of bone and cartilage, unspecified 06/14/2009 Overview: history of osteopenia documented as of this encounter (statuses as of 07/24/2023) [facility] History of Past illness Narrative* Problem Noted Date Diagnosed Date Resolved Date Status post total replacement of left hip 04/18/2017 08/30/2017 Left hip pain 02/17/2016 08/30/2017 Status post left hip replacement 02/17/2016 08/30/2017 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 02/17/2016 08/30/2017 DVT (deep venous thrombosis) 01/09/2016 08/30/2017 Abnormality of gait 06/20/2015 08/31/19 18 Rheumatoid arthritis involvi ng both hands with positive rheumatoid factor 03/07/2015 04/25/20 15 Encounter for long-term curr ent use of medication 10/22/2014 08/30/2017 RA (rheumatoid arthritis) 05/31/2011 Ventral hernia, unspecified, without mention of obstruction or gangrene 03/09/2011 08/30/2017 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 08/30/2017 Actinic Damage///Sun-Damaged Skin 11/25/2009 09/01/2014 Solar Lentigines 11/25/2009 09/01/2014 Other seborrheic keratosis 11/25/2009 0 09/01/2014 Asymptomatic varicose veins 12/10/2007 09/01/2014 Polymyalgia rheumatica 04/18/200006/14 Edema 04/18/2000 08/30/2017 Lump or mass in breast 04/18/200009/01 Benign neoplasm of breast Overview: bilat Disorder of bone and cartilage, unspecified 06/14/2009 Overview: history of osteopenia documented as of this encounter (statuses as of 07/25/2023) [facility] History of Past illness Narrative* Problem Noted Date Diagnosed Date Resolved Date Status post total replacement of left hip 04/18/2017 08/30/2017 Left hip pain 02/17/2016 08/30/2017 Status post left hip replacement 02/17/2016 08/30/2017 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 02/17/2016 08/30/2017 DVT (deep venous thrombosis) 01/09/2016 08/30/2017 Abnormality of gait 06/20/2015 08/31/19 18 Rheumatoid arthritis involvi ng both hands with positive rheumatoid factor 03/07/2015 04/25/20 15 Encounter for long-term curr ent use of medication 10/22/2014 08/30/2017 RA (rheumatoid arthritis) 05/31/2011 Ventral hernia, unspecified, without mention of obstruction or gangrene 03/09/2011 08/30/2017 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 08/30/2017 Actinic Damage///Sun-Damaged Skin 11/25/2009 09/01/2014 Solar Lentigines 11/25/2009 09/01/2014 Other seborrheic keratosis 11/25/2009 0 09/01/2014 Asymptomatic varicose veins 12/10/2007 09/01/2014 Polymyalgia rheumatica 04/18/200006/14 Edema 04/18/2000 08/30/2017 Lump or mass in breast 04/18/200009/01 Benign neoplasm of breast Overview: bilat Disorder of bone and cartilage, unspecified 06/14/2009 Overview: history of osteopenia documented as of this encounter (statuses as of 07/26/2023) [facility] History of Past illness Narrative* Problem Noted Date Diagnosed Date Resolved Date Status post total replacement of left hip 04/18/2017 08/30/2017 Left hip pain 02/17/2016 08/30/2017 Status post left hip replacement 02/17/2016 08/30/2017 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 02/17/2016 08/30/2017 DVT (deep venous thrombosis) 01/09/2016 08/30/2017 Abnormality of gait 06/20/2015 08/31/19 18 Rheumatoid arthritis involvi ng both hands with positive rheumatoid factor 03/07/2015 04/25/20 15 Encounter for long-term curr ent use of medication 10/22/2014 08/30/2017 RA (rheumatoid arthritis) 05/31/2011 Ventral hernia, unspecified, without mention of obstruction or gangrene 03/09/2011 08/30/2017 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 08/30/2017 Actinic Damage///Sun-Damaged Skin 11/25/2009 09/01/2014 Solar Lentigines 11/25/2009 09/01/2014 Other seborrheic keratosis 11/25/2009 0 09/01/2014 Asymptomatic varicose veins 12/10/2007 09/01/2014 Polymyalgia rheumatica 04/18/200006/14 Edema 04/18/2000 08/30/2017 Lump or mass in breast 04/18/200009/01 Benign neoplasm of breast Overview: bilat Disorder of bone and cartilage, unspecified 06/14/2009 Overview: history of osteopenia documented as of this encounter (statuses as of 07/26/2023) [facility] History of Past illness Narrative* Problem Noted Date Diagnosed Date Resolved Date Status post total replacement of left hip 04/18/2017 08/30/2017 Left hip pain 02/17/2016 08/30/2017 Status post left hip replacement 02/17/2016 08/30/2017 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 02/17/2016 08/30/2017 DVT (deep venous thrombosis) 01/09/2016 08/30/2017 Abnormality of gait 06/20/2015 08/31/19 18 Rheumatoid arthritis involvi ng both hands with positive rheumatoid factor 03/07/2015 04/25/20 15 Encounter for long-term curr ent use of medication 10/22/2014 08/30/2017 RA (rheumatoid arthritis) 05/31/2011 Ventral hernia, unspecified, without mention of obstruction or gangrene 03/09/2011 08/30/2017 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 08/30/2017 Actinic Damage///Sun-Damaged Skin 11/25/2009 09/01/2014 Solar Lentigines 11/25/2009 09/01/2014 Other seborrheic keratosis 11/25/2009 0 09/01/2014 Asymptomatic varicose veins 12/10/2007 09/01/2014 Polymyalgia rheumatica 04/18/200006/14 Edema 04/18/2000 08/30/2017 Lump or mass in breast 04/18/200009/01 Benign neoplasm of breast Overview: bilat Disorder of bone and cartilage, unspecified 06/14/2009 Overview: history of osteopenia documented as of this encounter (statuses as of 07/29/2023) [facility] History of Past illness Narrative* Problem Noted Date Diagnosed Date Resolved Date Status post total replacement of left hip 04/18/2017 08/30/2017 Left hip pain 02/17/2016 08/30/2017 Status post left hip replacement 02/17/2016 08/30/2017 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 02/17/2016 08/30/2017 DVT (deep venous thrombosis) 01/09/2016 08/30/2017 Abnormality of gait 06/20/2015 08/31/19 18 Rheumatoid arthritis involvi ng both hands with positive rheumatoid factor 03/07/2015 04/25/20 15 Encounter for long-term curr ent use of medication 10/22/2014 08/30/2017 RA (rheumatoid arthritis) 05/31/2011 Ventral hernia, unspecified, without mention of obstruction or gangrene 03/09/2011 08/30/2017 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 08/30/2017 Actinic Damage///Sun-Damaged Skin 11/25/2009 09/01/2014 Solar Lentigines 11/25/2009 09/01/2014 Other seborrheic keratosis 11/25/2009 0 09/01/2014 Asymptomatic varicose veins 12/10/2007 09/01/2014 Polymyalgia rheumatica 04/18/200006/14 Edema 04/18/2000 08/30/2017 Lump or mass in breast 04/18/200009/01 Benign neoplasm of breast Overview: bilat Disorder of bone and cartilage, unspecified 06/14/2009 Overview: history of osteopenia documented as of this encounter (statuses as of 07/30/2023) [facility] History of Past illness Narrative* Problem Noted Date Diagnosed Date Resolved Date Status post total replacement of left hip 04/18/2017 08/30/2017 Left hip pain 02/17/2016 08/30/2017 Status post left hip replacement 02/17/2016 08/30/2017 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 02/17/2016 08/30/2017 DVT (deep venous thrombosis) 01/09/2016 08/30/2017 Abnormality of gait 06/20/2015 08/31/19 18 Rheumatoid arthritis involvi ng both hands with positive rheumatoid factor 03/07/2015 04/25/20 15 Encounter for long-term curr ent use of medication 10/22/2014 08/30/2017 RA (rheumatoid arthritis) 05/31/2011 Ventral hernia, unspecified, without mention of obstruction or gangrene 03/09/2011 08/30/2017 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 08/30/2017 Actinic Damage///Sun-Damaged Skin 11/25/2009 09/01/2014 Solar Lentigines 11/25/2009 09/01/2014 Other seborrheic keratosis 11/25/2009 0 09/01/2014 Asymptomatic varicose veins 12/10/2007 09/01/2014 Polymyalgia rheumatica 04/18/200006/14 Edema 04/18/2000 08/30/2017 Lump or mass in breast 04/18/200009/01 Benign neoplasm of breast Overview: bilat Disorder of bone and cartilage, unspecified 06/14/2009 Overview: history of osteopenia documented as of this encounter (statuses as of 08/01/2023) [facility] History of Past illness Narrative* Problem Noted Date Diagnosed Date Resolved Date Status post total replacement of left hip 04/18/2017 08/30/2017 Left hip pain 02/17/2016 08/30/2017 Status post left hip replacement 02/17/2016 08/30/2017 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 02/17/2016 08/30/2017 DVT (deep venous thrombosis) 01/09/2016 08/30/2017 Abnormality of gait 06/20/2015 08/31/19 18 Rheumatoid arthritis involvi ng both hands with positive rheumatoid factor 03/07/2015 04/25/20 15 Encounter for long-term curr ent use of medication 10/22/2014 08/30/2017 RA (rheumatoid arthritis) 05/31/2011 Ventral hernia, unspecified, without mention of obstruction or gangrene 03/09/2011 08/30/2017 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 08/30/2017 Actinic Damage///Sun-Damaged Skin 11/25/2009 09/01/2014 Solar Lentigines 11/25/2009 09/01/2014 Other seborrheic keratosis 11/25/2009 0 09/01/2014 Asymptomatic varicose veins 12/10/2007 09/01/2014 Polymyalgia rheumatica 04/18/200006/14 Edema 04/18/2000 08/30/2017 Lump or mass in breast 04/18/200009/01 Benign neoplasm of breast Overview: bilat Disorder of bone and cartilage, unspecified 06/14/2009 Overview: history of osteopenia documented as of this encounter (statuses as of 08/01/2023) [facility] History of Past illness Narrative* Problem Noted Date Diagnosed Date Resolved Date Status post total replacement of left hip 04/18/2017 08/30/2017 Left hip pain 02/17/2016 08/30/2017 Status post left hip replacement 02/17/2016 08/30/2017 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 02/17/2016 08/30/2017 DVT (deep venous thrombosis) 01/09/2016 08/30/2017 Abnormality of gait 06/20/2015 08/31/19 18 Rheumatoid arthritis involvi ng both hands with positive rheumatoid factor 03/07/2015 04/25/20 15 Encounter for long-term curr ent use of medication 10/22/2014 08/30/2017 RA (rheumatoid arthritis) 05/31/2011 Ventral hernia, unspecified, without mention of obstruction or gangrene 03/09/2011 08/30/2017 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 08/30/2017 Actinic Damage///Sun-Damaged Skin 11/25/2009 09/01/2014 Solar Lentigines 11/25/2009 09/01/2014 Other seborrheic keratosis 11/25/2009 0 09/01/2014 Asymptomatic varicose veins 12/10/2007 09/01/2014 Polymyalgia rheumatica 04/18/200006/14 Edema 04/18/2000 08/30/2017 Lump or mass in breast 04/18/200009/01 Benign neoplasm of breast Overview: bilat Disorder of bone and cartilage, unspecified 06/14/2009 Overview: history of osteopenia documented as of this encounter (statuses as of 08/01/2023) [facility] History of Past illness Narrative* Problem Noted Date Diagnosed Date Resolved Date Status post total replacement of left hip 04/18/2017 08/30/2017 Left hip pain 02/17/2016 08/30/2017 Status post left hip replacement 02/17/2016 08/30/2017 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 02/17/2016 08/30/2017 DVT (deep venous thrombosis) 01/09/2016 08/30/2017 Abnormality of gait 06/20/2015 08/31/19 18 Rheumatoid arthritis involvi ng both hands with positive rheumatoid factor 03/07/2015 04/25/20 15 Encounter for long-term curr ent use of medication 10/22/2014 08/30/2017 RA (rheumatoid arthritis) 05/31/2011 Ventral hernia, unspecified, without mention of obstruction or gangrene 03/09/2011 08/30/2017 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 08/30/2017 Actinic Damage///Sun-Damaged Skin 11/25/2009 09/01/2014 Solar Lentigines 11/25/2009 09/01/2014 Other seborrheic keratosis 11/25/2009 0 09/01/2014 Asymptomatic varicose veins 12/10/2007 09/01/2014 Polymyalgia rheumatica 04/18/200006/14 Edema 04/18/2000 08/30/2017 Lump or mass in breast 04/18/200009/01 Benign neoplasm of breast Overview: bilat Disorder of bone and cartilage, unspecified 06/14/2009 Overview: history of osteopenia documented as of this encounter (statuses as of 08/02/2023) [facility] History of Past illness Narrative* Problem Noted Date Diagnosed Date Resolved Date Status post total replacement of left hip 04/18/2017 08/30/2017 Left hip pain 02/17/2016 08/30/2017 Status post left hip replacement 02/17/2016 08/30/2017 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 02/17/2016 08/30/2017 DVT (deep venous thrombosis) 01/09/2016 08/30/2017 Abnormality of gait 06/20/2015 08/31/19 18 Rheumatoid arthritis involvi ng both hands with positive rheumatoid factor 03/07/2015 04/25/20 15 Encounter for long-term curr ent use of medication 10/22/2014 08/30/2017 RA (rheumatoid arthritis) 05/31/2011 Ventral hernia, unspecified, without mention of obstruction or gangrene 03/09/2011 08/30/2017 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 08/30/2017 Actinic Damage///Sun-Damaged Skin 11/25/2009 09/01/2014 Solar Lentigines 11/25/2009 09/01/2014 Other seborrheic keratosis 11/25/2009 0 09/01/2014 Asymptomatic varicose veins 12/10/2007 09/01/2014 Polymyalgia rheumatica 04/18/200006/14 Edema 04/18/2000 08/30/2017 Lump or mass in breast 04/18/200009/01 Benign neoplasm of breast Overview: bilat Disorder of bone and cartilage, unspecified 06/14/2009 Overview: history of osteopenia documented as of this encounter (statuses as of 08/05/2023) [facility] History of Past illness Narrative* Problem Noted Date Diagnosed Date Resolved Date Status post total replacement of left hip 04/18/2017 08/30/2017 Left hip pain 02/17/2016 08/30/2017 Status post left hip replacement 02/17/2016 08/30/2017 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 02/17/2016 08/30/2017 DVT (deep venous thrombosis) 01/09/2016 08/30/2017 Abnormality of gait 06/20/2015 08/31/19 18 Rheumatoid arthritis involvi ng both hands with positive rheumatoid factor 03/07/2015 04/25/20 15 Encounter for long-term curr ent use of medication 10/22/2014 08/30/2017 RA (rheumatoid arthritis) 05/31/2011 Ventral hernia, unspecified, without mention of obstruction or gangrene 03/09/2011 08/30/2017 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 08/30/2017 Actinic Damage///Sun-Damaged Skin 11/25/2009 09/01/2014 Solar Lentigines 11/25/2009 09/01/2014 Other seborrheic keratosis 11/25/2009 0 09/01/2014 Asymptomatic varicose veins 12/10/2007 09/01/2014 Polymyalgia rheumatica 04/18/200006/14 Edema 04/18/2000 08/30/2017 Lump or mass in breast 04/18/200009/01 Benign neoplasm of breast Overview: bilat Disorder of bone and cartilage, unspecified 06/14/2009 Overview: history of osteopenia documented as of this encounter (statuses as of 08/05/2023) [facility] History of Past illness Narrative* Problem Noted Date Diagnosed Date Resolved Date Status post total replacement of left hip 04/18/2017 08/30/2017 Left hip pain 02/17/2016 08/30/2017 Status post left hip replacement 02/17/2016 08/30/2017 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 02/17/2016 08/30/2017 DVT (deep venous thrombosis) 01/09/2016 08/30/2017 Abnormality of gait 06/20/2015 08/31/19 18 Rheumatoid arthritis involvi ng both hands with positive rheumatoid factor 03/07/2015 04/25/20 15 Encounter for long-term curr ent use of medication 10/22/2014 08/30/2017 RA (rheumatoid arthritis) 05/31/2011 Ventral hernia, unspecified, without mention of obstruction or gangrene 03/09/2011 08/30/2017 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 08/30/2017 Actinic Damage///Sun-Damaged Skin 11/25/2009 09/01/2014 Solar Lentigines 11/25/2009 09/01/2014 Other seborrheic keratosis 11/25/2009 0 09/01/2014 Asymptomatic varicose veins 12/10/2007 09/01/2014 Polymyalgia rheumatica 04/18/200006/14 Edema 04/18/2000 08/30/2017 Lump or mass in breast 04/18/200009/01 Benign neoplasm of breast Overview: bilat Disorder of bone and cartilage, unspecified 06/14/2009 Overview: history of osteopenia documented as of this encounter (statuses as of 08/05/2023) [facility] History of Past illness Narrative* Problem Noted Date Diagnosed Date Resolved Date Status post total replacement of left hip 04/18/2017 08/30/2017 Left hip pain 02/17/2016 08/30/2017 Status post left hip replacement 02/17/2016 08/30/2017 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 02/17/2016 08/30/2017 DVT (deep venous thrombosis) 01/09/2016 08/30/2017 Abnormality of gait 06/20/2015 08/31/19 18 Rheumatoid arthritis involvi ng both hands with positive rheumatoid factor 03/07/2015 04/25/20 15 Encounter for long-term curr ent use of medication 10/22/2014 08/30/2017 RA (rheumatoid arthritis) 05/31/2011 Ventral hernia, unspecified, without mention of obstruction or gangrene 03/09/2011 08/30/2017 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 08/30/2017 Actinic Damage///Sun-Damaged Skin 11/25/2009 09/01/2014 Solar Lentigines 11/25/2009 09/01/2014 Other seborrheic keratosis 11/25/2009 0 09/01/2014 Asymptomatic varicose veins 12/10/2007 09/01/2014 Polymyalgia rheumatica 04/18/200006/14 Edema 04/18/2000 08/30/2017 Lump or mass in breast 04/18/200009/01 Benign neoplasm of breast Overview: bilat Disorder of bone and cartilage, unspecified 06/14/2009 Overview: history of osteopenia documented as of this encounter (statuses as of 08/06/2023) [facility] History of Past illness Narrative* Problem Noted Date Diagnosed Date Resolved Date Status post total replacement of left hip 04/18/2017 08/30/2017 Left hip pain 02/17/2016 08/30/2017 Status post left hip replacement 02/17/2016 08/30/2017 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 02/17/2016 08/30/2017 DVT (deep venous thrombosis) 01/09/2016 08/30/2017 Abnormality of gait 06/20/2015 08/31/19 18 Rheumatoid arthritis involvi ng both hands with positive rheumatoid factor 03/07/2015 04/25/20 15 Encounter for long-term curr ent use of medication 10/22/2014 08/30/2017 RA (rheumatoid arthritis) 05/31/2011 Ventral hernia, unspecified, without mention of obstruction or gangrene 03/09/2011 08/30/2017 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 08/30/2017 Actinic Damage///Sun-Damaged Skin 11/25/2009 09/01/2014 Solar Lentigines 11/25/2009 09/01/2014 Other seborrheic keratosis 11/25/2009 0 09/01/2014 Asymptomatic varicose veins 12/10/2007 09/01/2014 Polymyalgia rheumatica 04/18/200006/14 Edema 04/18/2000 08/30/2017 Lump or mass in breast 04/18/200009/01 Benign neoplasm of breast Overview: bilat Disorder of bone and cartilage, unspecified 06/14/2009 Overview: history of osteopenia documented as of this encounter (statuses as of 08/06/2023) [facility] History of Past illness Narrative* Problem Noted Date Diagnosed Date Resolved Date Status post total replacement of left hip 04/18/2017 08/30/2017 Left hip pain 02/17/2016 08/30/2017 Status post left hip replacement 02/17/2016 08/30/2017 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 02/17/2016 08/30/2017 DVT (deep venous thrombosis) 01/09/2016 08/30/2017 Abnormality of gait 06/20/2015 08/31/19 18 Rheumatoid arthritis involvi ng both hands with positive rheumatoid factor 03/07/2015 04/25/20 15 Encounter for long-term curr ent use of medication 10/22/2014 08/30/2017 RA (rheumatoid arthritis) 05/31/2011 Ventral hernia, unspecified, without mention of obstruction or gangrene 03/09/2011 08/30/2017 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 08/30/2017 Actinic Damage///Sun-Damaged Skin 11/25/2009 09/01/2014 Solar Lentigines 11/25/2009 09/01/2014 Other seborrheic keratosis 11/25/2009 0 09/01/2014 Asymptomatic varicose veins 12/10/2007 09/01/2014 Polymyalgia rheumatica 04/18/200006/14 Edema 04/18/2000 08/30/2017 Lump or mass in breast 04/18/200009/01 Benign neoplasm of breast Overview: bilat Disorder of bone and cartilage, unspecified 06/14/2009 Overview: history of osteopenia documented as of this encounter (statuses as of 08/12/2023) [facility] History of Past illness Narrative* Problem Noted Date Diagnosed Date Resolved Date Status post total replacement of left hip 04/18/2017 08/30/2017 Left hip pain 02/17/2016 08/30/2017 Status post left hip replacement 02/17/2016 08/30/2017 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 02/17/2016 08/30/2017 DVT (deep venous thrombosis) 01/09/2016 08/30/2017 Abnormality of gait 06/20/2015 08/31/19 18 Rheumatoid arthritis involvi ng both hands with positive rheumatoid factor 03/07/2015 04/25/20 15 Encounter for long-term curr ent use of medication 10/22/2014 08/30/2017 RA (rheumatoid arthritis) 05/31/2011 Ventral hernia, unspecified, without mention of obstruction or gangrene 03/09/2011 08/30/2017 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 08/30/2017 Actinic Damage///Sun-Damaged Skin 11/25/2009 09/01/2014 Solar Lentigines 11/25/2009 09/01/2014 Other seborrheic keratosis 11/25/2009 0 09/01/2014 Asymptomatic varicose veins 12/10/2007 09/01/2014 Polymyalgia rheumatica 04/18/200006/14 Edema 04/18/2000 08/30/2017 Lump or mass in breast 04/18/200009/01 Benign neoplasm of breast Overview: bilat Disorder of bone and cartilage, unspecified 06/14/2009 Overview: history of osteopenia documented as of this encounter (statuses as of 08/13/2023) [facility] History of Past illness Narrative* Problem Noted Date Diagnosed Date Resolved Date Status post total replacement of left hip 04/18/2017 08/30/2017 Left hip pain 02/17/2016 08/30/2017 Status post left hip replacement 02/17/2016 08/30/2017 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 02/17/2016 08/30/2017 DVT (deep venous thrombosis) 01/09/2016 08/30/2017 Abnormality of gait 06/20/2015 08/31/19 18 Rheumatoid arthritis involvi ng both hands with positive rheumatoid factor 03/07/2015 04/25/20 15 Encounter for long-term curr ent use of medication 10/22/2014 08/30/2017 RA (rheumatoid arthritis) 05/31/2011 Ventral hernia, unspecified, without mention of obstruction or gangrene 03/09/2011 08/30/2017 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 08/30/2017 Actinic Damage///Sun-Damaged Skin 11/25/2009 09/01/2014 Solar Lentigines 11/25/2009 09/01/2014 Other seborrheic keratosis 11/25/2009 0 09/01/2014 Asymptomatic varicose veins 12/10/2007 09/01/2014 Polymyalgia rheumatica 04/18/200006/14 Edema 04/18/2000 08/30/2017 Lump or mass in breast 04/18/200009/01 Benign neoplasm of breast Overview: bilat Disorder of bone and cartilage, unspecified 06/14/2009 Overview: history of osteopenia documented as of this encounter (statuses as of 08/14/2023) [facility] History of Past illness Narrative* Problem Noted Date Diagnosed Date Resolved Date Status post total replacement of left hip 04/18/2017 08/30/2017 Left hip pain 02/17/2016 08/30/2017 Status post left hip replacement 02/17/2016 08/30/2017 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 02/17/2016 08/30/2017 DVT (deep venous thrombosis) 01/09/2016 08/30/2017 Abnormality of gait 06/20/2015 08/31/19 18 Rheumatoid arthritis involvi ng both hands with positive rheumatoid factor 03/07/2015 04/25/20 15 Encounter for long-term curr ent use of medication 10/22/2014 08/30/2017 RA (rheumatoid arthritis) 05/31/2011 Ventral hernia, unspecified, without mention of obstruction or gangrene 03/09/2011 08/30/2017 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 08/30/2017 Actinic Damage///Sun-Damaged Skin 11/25/2009 09/01/2014 Solar Lentigines 11/25/2009 09/01/2014 Other seborrheic keratosis 11/25/2009 0 09/01/2014 Asymptomatic varicose veins 12/10/2007 09/01/2014 Polymyalgia rheumatica 04/18/200006/14 Edema 04/18/2000 08/30/2017 Lump or mass in breast 04/18/200009/01 Benign neoplasm of breast Overview: bilat Disorder of bone and cartilage, unspecified 06/14/2009 Overview: history of osteopenia documented as of this encounter (statuses as of 08/22/2023) [facility] History of Past illness Narrative* Problem Noted Date Diagnosed Date Resolved Date Status post total replacement of left hip 04/18/2017 08/30/2017 Left hip pain 02/17/2016 08/30/2017 Status post left hip replacement 02/17/2016 08/30/2017 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 02/17/2016 08/30/2017 DVT (deep venous thrombosis) 01/09/2016 08/30/2017 Abnormality of gait 06/20/2015 08/31/19 18 Rheumatoid arthritis involvi ng both hands with positive rheumatoid factor 03/07/2015 04/25/20 15 Encounter for long-term curr ent use of medication 10/22/2014 08/30/2017 RA (rheumatoid arthritis) 05/31/2011 Ventral hernia, unspecified, without mention of obstruction or gangrene 03/09/2011 08/30/2017 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 08/30/2017 Actinic Damage///Sun-Damaged Skin 11/25/2009 09/01/2014 Solar Lentigines 11/25/2009 09/01/2014 Other seborrheic keratosis 11/25/2009 0 09/01/2014 Asymptomatic varicose veins 12/10/2007 09/01/2014 Polymyalgia rheumatica 04/18/200006/14 Edema 04/18/2000 08/30/2017 Lump or mass in breast 04/18/200009/01 Benign neoplasm of breast Overview: bilat Disorder of bone and cartilage, unspecified 06/14/2009 Overview: history of osteopenia documented as of this encounter (statuses as of 08/23/2023) [facility] History of Past illness Narrative* Problem Noted Date Diagnosed Date Resolved Date Status post total replacement of left hip 04/18/2017 08/30/2017 Left hip pain 02/17/2016 08/30/2017 Status post left hip replacement 02/17/2016 08/30/2017 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 02/17/2016 08/30/2017 DVT (deep venous thrombosis) 01/09/2016 08/30/2017 Abnormality of gait 06/20/2015 08/31/19 18 Rheumatoid arthritis involvi ng both hands with positive rheumatoid factor 03/07/2015 04/25/20 15 Encounter for long-term curr ent use of medication 10/22/2014 08/30/2017 RA (rheumatoid arthritis) 05/31/2011 Ventral hernia, unspecified, without mention of obstruction or gangrene 03/09/2011 08/30/2017 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 08/30/2017 Actinic Damage///Sun-Damaged Skin 11/25/2009 09/01/2014 Solar Lentigines 11/25/2009 09/01/2014 Other seborrheic keratosis 11/25/2009 0 09/01/2014 Asymptomatic varicose veins 12/10/2007 09/01/2014 Polymyalgia rheumatica 04/18/200006/14 Edema 04/18/2000 08/30/2017 Lump or mass in breast 04/18/200009/01 Benign neoplasm of breast Overview: bilat Disorder of bone and cartilage, unspecified 06/14/2009 Overview: history of osteopenia documented as of this encounter (statuses as of 08/28/2023) [facility] History of Past illness Narrative* Problem Noted Date Diagnosed Date Resolved Date Status post total replacement of left hip 04/18/2017 08/30/2017 Left hip pain 02/17/2016 08/30/2017 Status post left hip replacement 02/17/2016 08/30/2017 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 02/17/2016 08/30/2017 DVT (deep venous thrombosis) 01/09/2016 08/30/2017 Abnormality of gait 06/20/2015 08/31/19 18 Rheumatoid arthritis involvi ng both hands with positive rheumatoid factor 03/07/2015 04/25/20 15 Encounter for long-term curr ent use of medication 10/22/2014 08/30/2017 RA (rheumatoid arthritis) 05/31/2011 Ventral hernia, unspecified, without mention of obstruction or gangrene 03/09/2011 08/30/2017 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 08/30/2017 Actinic Damage///Sun-Damaged Skin 11/25/2009 09/01/2014 Solar Lentigines 11/25/2009 09/01/2014 Other seborrheic keratosis 11/25/2009 0 09/01/2014 Asymptomatic varicose veins 12/10/2007 09/01/2014 Polymyalgia rheumatica 04/18/200006/14 Edema 04/18/2000 08/30/2017 Lump or mass in breast 04/18/200009/01 Benign neoplasm of breast Overview: bilat Disorder of bone and cartilage, unspecified 06/14/2009 Overview: history of osteopenia documented as of this encounter (statuses as of 08/30/2023) [facility] History of Past illness Narrative* Problem Noted Date Diagnosed Date Resolved Date Status post total replacement of left hip 04/18/2017 08/30/2017 Left hip pain 02/17/2016 08/30/2017 Status post left hip replacement 02/17/2016 08/30/2017 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 02/17/2016 08/30/2017 DVT (deep venous thrombosis) 01/09/2016 08/30/2017 Abnormality of gait 06/20/2015 08/31/19 18 Rheumatoid arthritis involvi ng both hands with positive rheumatoid factor 03/07/2015 04/25/20 15 Encounter for long-term curr ent use of medication 10/22/2014 08/30/2017 RA (rheumatoid arthritis) 05/31/2011 Ventral hernia, unspecified, without mention of obstruction or gangrene 03/09/2011 08/30/2017 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 08/30/2017 Actinic Damage///Sun-Damaged Skin 11/25/2009 09/01/2014 Solar Lentigines 11/25/2009 09/01/2014 Other seborrheic keratosis 11/25/2009 0 09/01/2014 Asymptomatic varicose veins 12/10/2007 09/01/2014 Polymyalgia rheumatica 04/18/200006/14 Edema 04/18/2000 08/30/2017 Lump or mass in breast 04/18/200009/01 Benign neoplasm of breast Overview: bilat Disorder of bone and cartilage, unspecified 06/14/2009 Overview: history of osteopenia documented as of this encounter (statuses as of 08/16/2023) [facility] Diagnosis Mixed hyperlipidemia- Primary Anxiousness Anxiety state, unspecified Lower leg edema Edema History of rheumatoid arthritis Personal history of arthritis [facility] Diagnosis Long-term use of immunosuppressant medication Encounter for long-term (current) use of other medications [facility] Diagnosis Seropositive rheumatoid arthritis (HCC)- Primary Rheumatoid arthritis [facility] Diagnosis Seropositive rheumatoid arthritis (HCC)- Primary Rheumatoid arthritis Osteopenia of multiple sites [facility] Diagnosis Encounter for screening mammogram for malignant neoplasm of breast- Primary Other screening mammogram [facility] Diagnosis Symptomatic varicose veins of both lower extremities- Primary Varicose veins of lower extremities with other complications [facility] Diagnosis Anxiousness- Primary Anxiety state, unspecified [facility] Diagnosis Encounter for screening mammogram for malignant neoplasm of breast Other screening mammogram [facility] Diagnosis Long-term use of immunosuppressant medication Encounter for long-term (current) use of other medications [facility] Diagnosis Seropositive rheumatoid arthritis (HCC)- Primary Rheumatoid arthritis Seropositive rheumatoid arthritis (HCC)- Primary Rheumatoid arthritis Encounter for long-term (current) use of NSAIDs Encounter for long-term (current) use of non-steroidal anti-inflammatories Generalized osteoarthrosis Generalized osteoarthrosis, unspecified site Osteopenia of multiple sites [facility] Diagnosis Seropositive rheumatoid arthritis (HCC)- Primary Rheumatoid arthritis Encounter for long-term (current) use of NSAIDs Encounter for long-term (current) use of non-steroidal anti-inflammatories Generalized osteoarthrosis Generalized osteoarthrosis, unspecified site Osteopenia of multiple sites [facility] Diagnosis Symptomatic varicose veins of both lower extremities- Primary Varicose veins of lower extremities with other complications [facility] Diagnosis Vertigo Dizziness and giddiness [facility] Diagnosis Anxiousness Anxiety state, unspecified [facility] Diagnosis Seropositive rheumatoid arthritis (HCC)- Primary Rheumatoid arthritis [facility] Diagnosis Long-term use of immunosuppressant medication- Primary Encounter for long-term (current) use of other medications [facility] Diagnosis Osteopenia of multiple sites Encounter for long-term (current) use of medications Encounter for long-term (current) use of other medications [facility] Diagnosis Hospital discharge follow-up- Primary Other follow-up examination Atypical migraine Other forms of migraine, without mention of intractable migraine without mention of status migrainosus Anxiousness Anxiety state, unspecified [facility] Diagnosis Language impairment- Primary Other speech disturbance 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), and cerebral infarction without residual deficits [facility] Diagnosis Seropositive rheumatoid arthritis (HCC)- Primary Rheumatoid arthritis [facility] Diagnosis Long-term use of immunosuppressant medication Encounter for long-term (current) use of other medications [facility] Diagnosis Malignant neoplasm of skin- Primary Unspecified malignant neoplasm of skin, site unspecified Seropositive rheumatoid arthritis (HCC) Rheumatoid arthritis [facility]* Diagnosis Status post left hip replacement- Primary Hip joint replacement by other means S/P hip replacement, right [facility] Diagnosis Seropositive rheumatoid arthritis (HCC)- Primary Rheumatoid arthritis Generalized osteoarthrosis Generalized osteoarthrosis, unspecified site Osteopenia of multiple sites Encounter for long-term (current) use of NSAIDs Encounter for long-term (current) use of non-steroidal anti-inflammatories Long-term use of immunosuppressant medication Encounter for long-term (current) use of other medications [facility] Malignant neoplasm of skin- Primary Unspecified malignant neoplasm of skin, site unspecified Seropositive rheumatoid arthritis (HCC) Rheumatoid arthritis [facility] Diagnosis Seropositive rheumatoid arthritis (HCC)- Primary Rheumatoid arthritis [facility]* Diagnosis Acquired hypothyroidism- Primary Unspecified hypothyroidism Mixed hyperlipidemia Venous insufficiency Unspecified venous (peripheral) insufficiency Primary insomnia Persistent disorder of initiating or maintaining sleep Anxiousness Anxiety state, unspecified History of rheumatoid arthritis Personal history of arthritis Urgency of urination Encounter for screening mammogram for malignant neoplasm of breast Other screening mammogram Malignant neoplasm of skin Unspecified malignant neoplasm of skin, site unspecified TIA (transient ischemic attack) Unspecified transient cerebral ischemia [facility] Diagnosis Mixed hyperlipidemia [facility] Diagnosis Malignant neoplasm of skin- Primary Unspecified malignant neoplasm of skin, site unspecified Seropositive rheumatoid arthritis (HCC) Rheumatoid arthritis [facility] Diagnosis Chronic pain of right knee- Primary [facility] Diagnosis Primary osteoarthritis of right knee- Primary Primary localized osteoarthrosis, lower leg [facility]* Diagnosis Primary insomnia- Primary Persistent disorder of initiating or maintaining sleep Anxiousness Anxiety state, unspecified [facility] Diagnosis Degeneration of lumbar or lumbosacral intervertebral disc- Primary Lumbar facet arthropathy Lumbosacral spondylosis without myelopathy Trochanteric bursitis of both hips Enthesopathy of hip region [facility]* Diagnosis Seropositive rheumatoid arthritis (HCC)- Primary Rheumatoid arthritis [facility]* Diagnosis Degeneration of lumbar or lumbosacral intervertebral disc- Primary Lumbar facet arthropathy Lumbosacral spondylosis without myelopathy Trochanteric bursitis of both hips Enthesopathy of hip region [facility] Diagnosis Degeneration of lumbar or lumbosacral intervertebral disc Lumbar facet arthropathy Lumbosacral spondylosis without myelopathy Trochanteric bursitis of both hips Enthesopathy of hip region [facility]* Diagnosis Lumbar radiculopathy- Primary Thoracic or lumbosacral neuritis or radiculitis, unspecified Trochanteric bursitis of both hips Enthesopathy of hip region documented in this encounter [facility]* Diagnosis Lumbar radiculopathy- Primary Thoracic or lumbosacral neuritis or radiculitis, unspecified Trochanteric bursitis of both hips Enthesopathy of hip region documented in this encounter [facility] note* Diagnosis Herpes zoster without complication- Primary Herpes zoster without mention of complication documented in this encounter [facility]* Diagnosis Lumbar radiculopathy- Primary Thoracic or lumbosacral neuritis or radiculitis, unspecified Trochanteric bursitis of both hips Enthesopathy of hip region documented in this encounter [facility] note* Diagnosis Seropositive rheumatoid arthritis (HCC)- Primary Rheumatoid arthritis documented in this encounter [facility] note* Diagnosis Anxiousness Anxiety state, unspecified documented in this encounter [facility]* Diagnosis Seropositive rheumatoid arthritis (HCC)- Primary Rheumatoid arthritis documented in this encounter [facility] note* Diagnosis Long-term use of immunosuppressant medication- Primary Encounter for long-term (current) use of other medications documented in this encounter [facility] note* Diagnosis Long-term use of immunosuppressant medication Encounter for long-term (current) use of other medications documented in this encounter [facility]* Diagnosis Seropositive rheumatoid arthritis (HCC)- Primary Rheumatoid arthritis documented in this encounter [facility]* Diagnosis Encounter for screening mammogram for malignant neoplasm of breast Other screening mammogram [facility] Diagnosis Seropositive rheumatoid arthritis (HCC)- Primary Rheumatoid arthritis Need for influenza vaccination Need for prophylactic vaccination and inoculation against influenza [facility] Diagnosis Acquired hypothyroidism Unspecified hypothyroidism [facility] Diagnosis Acquired hypothyroidism Unspecified hypothyroidism [facility] Diagnosis Urgency of urination [facility] Diagnosis Chronic pain of right knee Primary osteoarthritis of right knee Primary localized osteoarthrosis, lower leg Chronic pain of right knee documented in this encounter [facility]* Diagnosis Pre-operative examination- Primary Preoperative examination, unspecified Anemia due to acute blood loss Acute posthemorrhagic anemia Acquired hypothyroidism Unspecified hypothyroidism Facet hypertrophy of lumbar region Other symptoms referable to back History of DVT of lower extremity Personal history of venous thrombosis and embolism 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), and cerebral infarction without residual deficits Hypocalcemia Insomnia, unspecified type Malignant neoplasm of skin Unspecified malignant neoplasm of skin, site unspecified Mixed hyperlipidemia Osteopenia of multiple sites Other specified rheumatoid arthritis, multiple sites (HCC) S/P total knee replacement using cement, 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 Urge incontinence Venous insufficiency Unspecified venous (peripheral) insufficiency History of diverticulitis Primary osteoarthritis of right knee Primary localized osteoarthrosis, lower leg Chronic pain of [facility] Seropositive rheumatoid arthritis (HCC)- Primary Rheumatoid arthritis Primary osteoarthritis of right knee Primary localized osteoarthrosis, lower leg Chronic pain of right knee [facility] Encounter for screening mammogram for malignant neoplasm of breast- Primary Other screening mammogram [facility] Status post right knee replacement- Primary Status post total replacement of hip, unspecified laterality [facility] Status post right [facility] replacement [facility] Diagnosis Long-term use of immunosuppressant medication Encounter for long-term (current) use of other medications [facility] Status post right knee replacement Long-term use of immunosuppressant medication Encounter for long-term (current) use of other medications [facility] Diagnosis Urgency of urination Acquired hypothyroidism Unspecified hypothyroidism [facility]* Diagnosis Status post right knee replacement- Primary [facility]* Diagnosis Vertigo Dizziness and giddiness [facility]* Diagnosis Primary osteoarthritis of right knee- Primary Primary localized osteoarthrosis, lower leg [facility]* Diagnosis Anxiousness Anxiety state, unspecified [facility] Diagnosis Primary osteoarthritis of right knee- Primary Primary localized osteoarthrosis, lower leg [facility] Primary osteoarthritis of right knee- Primary Primary localized osteoarthrosis, lower leg [facility] Diagnosis Primary osteoarthritis of right knee- Primary Primary localized osteoarthrosis, lower leg [facility] Diagnosis Seropositive rheumatoid arthritis (HCC)- Primary Rheumatoid arthritis [facility] Diagnosis Primary osteoarthritis of right knee- Primary Primary localized osteoarthrosis, lower leg [facility] Diagnosis Primary osteoarthritis of right knee Primary localized osteoarthrosis, lower leg [facility] note* Diagnosis Primary osteoarthritis of right knee- Primary Primary localized osteoarthrosis, [facility] Diagnosis Status post right knee replacement- Primary [facility] Diagnosis Mixed hyper[facility] Diagnosis Encounter for screening mammogram for malignant neoplasm of breast Other screening mammogram [facility] Diagnosis Seropositive rheumatoid arthritis (HCC)- Primary Rheumatoid arthritis [facility] Diagnosis Seropositive rheumatoid arthritis (HCC)- Primary Rheumatoid arthritis Long-term use of immunosuppressant medication Encounter for long-term (current) use of other medications Osteopenia of multiple sites Encounter for long-term (current) use of medications Encounter for long-term (current) use of other medications Generalized osteoarthrosis Generalized osteoarthrosis, unspecified site [facility] Medicare annual wellness visit, subsequent- Primary Routine general medical examination at a health care facility Acquired hypothyroidism Unspecified hypothyroidism Venous insufficiency Unspecified venous (peripheral) insufficiency Urge incontinence Elevated blood pressure reading Elevated blood pressure reading without diagnosis of hypertension Anxiety neurosis Anxiety state, unspecified Need for COVID-19 vaccine Screening for colon cancer Special screening for malignant neoplasms, colon Primary hypertension Unspecified essential hypertension [facility] Diagnosis Malignant neoplasm of skin- Primary Unspecified malignant neoplasm of skin, site unspecified Seropositive rheumatoid arthritis (HCC) Rheumatoid arthritis [facility] Diagnosis Seropositive rheumatoid arthritis (HCC)- Primary Rheumatoid arthritis Osteopenia of multiple sites [facility] Diagnosis Pre-operative examination- Primary Preoperative examination, unspecified Primary osteoarthritis of right hip Primary localized osteoarthrosis, pelvic region and thigh Venous insufficiency Unspecified venous (peripheral) insufficiency Urge incontinence Acquired hypothyroidism Unspecified hypothyroidism Anemia due to acute blood loss Acute posthemorrhagic anemia Malignant neoplasm of skin Unspecified malignant neoplasm of skin, site unspecified Mixed hyperlipidemia Seropositive rheumatoid arthritis (HCC) Rheumatoid arthritis 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), 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 Personal history of venous thrombosis and embolism Insomnia, unspecified type Pre-operative examination- Primary Preoperative examination, unspecified Anemia due to acute blood loss Acute posthemorrhagic anemia Acquired hypothyroidism Unspecified hypothyroidism Facet hypertrophy of lumbar region Other symptoms referable to back History of DVT of lower extremity Personal history of venous thrombosis and embolism 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), and cerebral infarction without residual deficits Hypocalcemia Insomnia, unspecified type Malignant neoplasm of skin Unspecified malignant neoplasm of skin, site unspecified Mixed hyperlipidemia Osteopenia of multiple sites Other specified rheumatoid arthritis, multiple sites (HCC) S/P total knee replacement using cement, 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 Urge incontinence Venous insufficiency Unspecified venous (peripheral) insufficiency History of diverticulitis Osteopenia of multiple sites Encounter for long-term (current) use of medications Encounter for long-term (current) use of other medications [facility] Pre-operative examination- Primary Preoperative examination, unspecified Primary osteoarthritis of right hip Primary localized osteoarthrosis, pelvic region and thigh Venous insufficiency Unspecified venous (peripheral) insufficiency Urge incontinence Acquired hypothyroidism Unspecified hypothyroidism Anemia due to acute blood loss Acute posthemorrhagic anemia Malignant neoplasm of skin Unspecified malignant neoplasm of skin, site unspecified Mixed hyperlipidemia Seropositive rheumatoid arthritis (HCC) Rheumatoid arthritis 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), 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 Personal history of venous thrombosis and embolism Insomnia, unspecified type Pre-operative examination- Primary Preoperative examination, unspecified Anemia due to acute blood loss Acute posthemorrhagic anemia Acquired hypothyroidism Unspecified hypothyroidism Facet hypertrophy of lumbar region Other symptoms referable to back History of DVT of lower extremity Personal history of venous thrombosis and embolism 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), and cerebral infarction without residual deficits Hypocalcemia Insomnia, unspecified type Malignant neoplasm of skin Unspecified malignant neoplasm of skin, site unspecified Mixed hyperlipidemia Osteopenia of multiple sites Other specified rheumatoid arthritis, multiple sites (HCC) S/P total knee replacement using cement, 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 Urge incontinence Venous insufficiency Unspecified venous (peripheral) insufficiency History of diverticulitis Long-term use of immunosuppressant medication Encounter for long-term (current) use of other medications documented in this encounter [facility] note* Diagnosis Pre-operative examination- Primary Preoperative examination, unspecified Primary osteoarthritis of right hip Primary localized osteoarthrosis, pelvic region and thigh Venous insufficiency Unspecified venous (peripheral) insufficiency Urge incontinence Acquired hypothyroidism Unspecified hypothyroidism Anemia due to acute blood loss Acute posthemorrhagic anemia Malignant neoplasm of skin Unspecified malignant neoplasm of skin, site unspecified Mixed hyperlipidemia Seropositive rheumatoid arthritis (HCC) Rheumatoid arthritis 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), 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 Personal history of venous thrombosis and embolism Insomnia, unspecified type Pre-operative examination- Primary Preoperative examination, unspecified Anemia due to acute blood loss Acute posthemorrhagic anemia Acquired hypothyroidism Unspecified hypothyroidism Facet hypertrophy of lumbar region Other symptoms referable to back History of DVT of lower extremity Personal history of venous thrombosis and embolism 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), and cerebral infarction without residual deficits Hypocalcemia Insomnia, unspecified type Malignant neoplasm of skin Unspecified malignant neoplasm of skin, site unspecified Mixed hyperlipidemia Osteopenia of multiple sites Other specified rheumatoid arthritis, multiple sites (HCC) S/P total knee replacement using cement, 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 Urge incontinence Venous insufficiency Unspecified venous (peripheral) insufficiency History of diverticulitis Chronic right shoulder pain- Primary Pain in joint, shoulder region documented in this encounter [facility] note* Diagnosis Pre-operative examination- Primary Preoperative examination, unspecified Primary osteoarthritis of right hip Primary localized osteoarthrosis, pelvic region and thigh Venous insufficiency Unspecified venous (peripheral) insufficiency Urge incontinence Acquired hypothyroidism Unspecified hypothyroidism Anemia due to acute blood loss Acute posthemorrhagic anemia Malignant neoplasm of skin Unspecified malignant neoplasm of skin, site unspecified Mixed hyperlipidemia Seropositive rheumatoid arthritis (HCC) Rheumatoid arthritis 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), 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 Personal history of venous thrombosis and embolism Insomnia, unspecified type Pre-operative examination- Primary Preoperative examination, unspecified Anemia due to acute blood loss Acute posthemorrhagic anemia Acquired hypothyroidism Unspecified hypothyroidism Facet hypertrophy of lumbar region Other symptoms referable to back History of DVT of lower extremity Personal history of venous thrombosis and embolism 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), and cerebral infarction without residual deficits Hypocalcemia Insomnia, unspecified type Malignant neoplasm of skin Unspecified malignant neoplasm of skin, site unspecified Mixed hyperlipidemia Osteopenia of multiple sites Other specified rheumatoid arthritis, multiple sites (HCC) S/P total knee replacement using cement, 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 Urge incontinence Venous insufficiency Unspecified venous (peripheral) insufficiency History of diverticulitis Chronic right shoulder pain Pain in joint, shoulder region [facility] Diagnosis Pre-operative examination- Primary Preoperative examination, unspecified Primary osteoarthritis of right hip Primary localized osteoarthrosis, pelvic region and thigh Venous insufficiency Unspecified venous (peripheral) insufficiency Urge incontinence Acquired hypothyroidism Unspecified hypothyroidism Anemia due to acute blood loss Acute posthemorrhagic anemia Malignant neoplasm of skin Unspecified malignant neoplasm of skin, site unspecified Mixed hyperlipidemia Seropositive rheumatoid arthritis (HCC) Rheumatoid arthritis 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), 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 Personal history of venous thrombosis and embolism Insomnia, unspecified type Pre-operative examination- Primary Preoperative examination, unspecified Anemia due to acute blood loss Acute posthemorrhagic anemia Acquired hypothyroidism Unspecified hypothyroidism Facet hypertrophy of lumbar region Other symptoms referable to back History of DVT of lower extremity Personal history of venous thrombosis and embolism 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), and cerebral infarction without residual deficits Hypocalcemia Insomnia, unspecified type Malignant neoplasm of skin Unspecified malignant neoplasm of skin, site unspecified Mixed hyperlipidemia Osteopenia of multiple sites Other specified rheumatoid arthritis, multiple sites (HCC) S/P total knee replacement using cement, 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 Urge incontinence Venous insufficiency Unspecified venous (peripheral) insufficiency History of diverticulitis Right knee pain, unspecified chronicity [facility] Diagnosis Pre-operative examination- Primary Preoperative examination, unspecified Primary osteoarthritis of right hip Primary localized osteoarthrosis, pelvic region and thigh Venous insufficiency Unspecified venous (peripheral) insufficiency Urge incontinence Acquired hypothyroidism Unspecified hypothyroidism Anemia due to acute blood loss Acute posthemorrhagic anemia Malignant neoplasm of skin Unspecified malignant neoplasm of skin, site unspecified Mixed hyperlipidemia Seropositive rheumatoid arthritis (HCC) Rheumatoid arthritis 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), 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 Personal history of venous thrombosis and embolism Insomnia, unspecified type Pre-operative examination- Primary Preoperative examination, unspecified Anemia due to acute blood loss Acute posthemorrhagic anemia Acquired hypothyroidism Unspecified hypothyroidism Facet hypertrophy of lumbar region Other symptoms referable to back History of DVT of lower extremity Personal history of venous thrombosis and embolism 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), and cerebral infarction without residual deficits Hypocalcemia Insomnia, unspecified type Malignant neoplasm of skin Unspecified malignant neoplasm of skin, site unspecified Mixed hyperlipidemia Osteopenia of multiple sites Other specified rheumatoid arthritis, multiple sites (HCC) S/P total knee replacement using cement, 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 Urge incontinence Venous insufficiency Unspecified venous (peripheral) insufficiency History of diverticulitis Seropositive rheumatoid arthritis (HCC)- Primary Rheumatoid arthritis [facility] Diagnosis Pre-operative examination- Primary Preoperative examination, unspecified Primary osteoarthritis of right hip Primary localized osteoarthrosis, pelvic region and thigh Venous insufficiency Unspecified venous (peripheral) insufficiency Urge incontinence Acquired hypothyroidism Unspecified hypothyroidism Anemia due to acute blood loss Acute posthemorrhagic anemia Malignant neoplasm of skin Unspecified malignant neoplasm of skin, site unspecified Mixed hyperlipidemia Seropositive rheumatoid arthritis (HCC) Rheumatoid arthritis 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), 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 Personal history of venous thrombosis and embolism Insomnia, unspecified type Chronic pain of right knee Pre-operative examination- Primary Preoperative examination, unspecified Anemia due to acute blood loss Acute posthemorrhagic anemia Acquired hypothyroidism Unspecified hypothyroidism Facet hypertrophy of lumbar region Other symptoms referable to back History of DVT of lower extremity Personal history of venous thrombosis and embolism 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), and cerebral infarction without residual deficits Hypocalcemia Insomnia, unspecified type Malignant neoplasm of skin Unspecified malignant neoplasm of skin, site unspecified Mixed hyperlipidemia Osteopenia of multiple sites Other specified rheumatoid arthritis, multiple sites (HCC) S/P total knee replacement using cement, 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 Urge incontinence Venous insufficiency Unspecified venous (peripheral) insufficiency History of diverticulitis [facility] Diagnosis Pre-operative examination- Primary Preoperative examination, unspecified Primary osteoarthritis of right hip Primary localized osteoarthrosis, pelvic region and thigh Venous insufficiency Unspecified venous (peripheral) insufficiency Urge incontinence Acquired hypothyroidism Unspecified hypothyroidism Anemia due to acute blood loss Acute posthemorrhagic anemia Malignant neoplasm of skin Unspecified malignant neoplasm of skin, site unspecified Mixed hyperlipidemia Seropositive rheumatoid arthritis (HCC) Rheumatoid arthritis 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), 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 Personal history of venous thrombosis and embolism Insomnia, unspecified type Pain in right hip Pain in joint, pelvic region and thigh Pre-operative examination- Primary Preoperative examination, unspecified Anemia due to acute blood loss Acute posthemorrhagic anemia Acquired hypothyroidism Unspecified hypothyroidism Facet hypertrophy of lumbar region Other symptoms referable to back History of DVT of lower extremity Personal history of venous thrombosis and embolism 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), and cerebral infarction without residual deficits Hypocalcemia Insomnia, unspecified type Malignant neoplasm of skin Unspecified malignant neoplasm of skin, site unspecified Mixed hyperlipidemia Osteopenia of multiple sites Other specified rheumatoid arthritis, multiple sites (HCC) S/P total knee replacement using cement, 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 Urge incontinence Venous insufficiency Unspecified venous (peripheral) insufficiency History of diverticulitis documented in this encounter [facility] note* Diagnosis Pre-operative examination- Primary Preoperative examination, unspecified Primary osteoarthritis of right hip Primary localized osteoarthrosis, pelvic region and thigh Venous insufficiency Unspecified venous (peripheral) insufficiency Urge incontinence Acquired hypothyroidism Unspecified hypothyroidism Anemia due to acute blood loss Acute posthemorrhagic anemia Malignant neoplasm of skin Unspecified malignant neoplasm of skin, site unspecified Mixed hyperlipidemia Seropositive rheumatoid arthritis (HCC) Rheumatoid arthritis 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), 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 Personal history of venous thrombosis and embolism Insomnia, unspecified type Bilateral hip pain Pain in joint, pelvic region and thigh Pre-operative examination- Primary Preoperative examination, unspecified Anemia due to acute blood loss Acute posthemorrhagic anemia Acquired hypothyroidism Unspecified hypothyroidism Facet hypertrophy of lumbar region Other symptoms referable to back History of DVT of lower extremity Personal history of venous thrombosis and embolism 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), and cerebral infarction without residual deficits Hypocalcemia Insomnia, unspecified type Malignant neoplasm of skin Unspecified malignant neoplasm of skin, site unspecified Mixed hyperlipidemia Osteopenia of multiple sites Other specified rheumatoid arthritis, multiple sites (HCC) S/P total knee replacement using cement, 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 Urge incontinence Venous insufficiency Unspecified venous (peripheral) insufficiency History of diverticulitis [facility] Diagnosis Primary osteoarthritis of right knee- Primary Primary localized osteoarthrosis, lower leg documented in this encounter [facility] note* Diagnosis Pre-operative examination- Primary Preoperative examination, unspecified Primary osteoarthritis of right hip Primary localized osteoarthrosis, pelvic region and thigh Venous insufficiency Unspecified venous (peripheral) insufficiency Urge incontinence Acquired hypothyroidism Unspecified hypothyroidism Anemia due to acute blood loss Acute posthemorrhagic anemia Malignant neoplasm of skin Unspecified malignant neoplasm of skin, site unspecified Mixed hyperlipidemia Seropositive rheumatoid arthritis (HCC) Rheumatoid arthritis 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), 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 Personal history of venous thrombosis and embolism Insomnia, unspecified type Pre-operative examination- Primary Preoperative examination, unspecified Anemia due to acute blood loss Acute posthemorrhagic anemia Acquired hypothyroidism Unspecified hypothyroidism Facet hypertrophy of lumbar region Other symptoms referable to back History of DVT of lower extremity Personal history of venous thrombosis and embolism 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), and cerebral infarction without residual deficits Hypocalcemia Insomnia, unspecified type Malignant neoplasm of skin Unspecified malignant neoplasm of skin, site unspecified Mixed hyperlipidemia Osteopenia of multiple sites Other specified rheumatoid arthritis, multiple sites (HCC) S/P total knee replacement using cement, 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 Urge incontinence Venous insufficiency Unspecified venous (peripheral) insufficiency History of diverticulitis Primary hypertension- Primary Unspecified essential hypertension Need for influenza vaccination Need for prophylactic vaccination and inoculation against influenza Chronic right shoulder pain Pain in joint, shoulder region Need for COVID-19 vaccine documented in this encounter [facility] note* Diagnosis Pre-operative examination- Primary Preoperative examination, unspecified Primary osteoarthritis of right hip Primary localized osteoarthrosis, pelvic region and thigh Venous insufficiency Unspecified venous (peripheral) insufficiency Urge incontinence Acquired hypothyroidism Unspecified hypothyroidism Anemia due to acute blood loss Acute posthemorrhagic anemia Malignant neoplasm of skin Unspecified malignant neoplasm of skin, site unspecified Mixed hyperlipidemia Seropositive rheumatoid arthritis (HCC) Rheumatoid arthritis 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), 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 Personal history of venous thrombosis and embolism Insomnia, unspecified type Pre-operative examination- Primary Preoperative examination, unspecified Anemia due to acute blood loss Acute posthemorrhagic anemia Acquired hypothyroidism Unspecified hypothyroidism Facet hypertrophy of lumbar region Other symptoms referable to back History of DVT of lower extremity Personal history of venous thrombosis and embolism 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), and cerebral infarction without residual deficits Hypocalcemia Insomnia, unspecified type Malignant neoplasm of skin Unspecified malignant neoplasm of skin, site unspecified Mixed hyperlipidemia Osteopenia of multiple sites Other specified rheumatoid arthritis, multiple sites (HCC) S/P total knee replacement using cement, 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 Urge incontinence Venous insufficiency Unspecified venous (peripheral) insufficiency History of diverticulitis Leg length discrepancy- Primary Unequal leg length (acquired) Status post right knee replacement Gait instability Abnormality of gait [facility] Diagnosis Pre-operative examination- Primary Preoperative examination, unspecified Primary osteoarthritis of right hip Primary localized osteoarthrosis, pelvic region and thigh Venous insufficiency Unspecified venous (peripheral) insufficiency Urge incontinence Acquired hypothyroidism Unspecified hypothyroidism Anemia due to acute blood loss Acute posthemorrhagic anemia Malignant neoplasm of skin Unspecified malignant neoplasm of skin, site unspecified Mixed hyperlipidemia Seropositive rheumatoid arthritis (HCC) Rheumatoid arthritis 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), 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 Personal history of venous thrombosis and embolism Insomnia, unspecified type Pre-operative examination- Primary Preoperative examination, unspecified Anemia due to acute blood loss Acute posthemorrhagic anemia Acquired hypothyroidism Unspecified hypothyroidism Facet hypertrophy of lumbar region Other symptoms referable to back History of DVT of lower extremity Personal history of venous thrombosis and embolism 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), and cerebral infarction without residual deficits Hypocalcemia Insomnia, unspecified type Malignant neoplasm of skin Unspecified malignant neoplasm of skin, site unspecified Mixed hyperlipidemia Osteopenia of multiple sites Other specified rheumatoid arthritis, multiple sites (HCC) S/P total knee replacement using cement, 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 Urge incontinence Venous insufficiency Unspecified venous (peripheral) insufficiency History of diverticulitis Seropositive rheumatoid arthritis (HCC)- Primary [facility] Pre-operative examination- Primary Preoperative examination, unspecified Primary osteoarthritis of right hip Primary localized osteoarthrosis, pelvic region and thigh Venous insufficiency Unspecified venous (peripheral) insufficiency Urge incontinence Acquired hypothyroidism Unspecified hypothyroidism Anemia due to acute blood loss Acute posthemorrhagic anemia Malignant neoplasm of skin Unspecified malignant neoplasm of skin, site unspecified Mixed hyperlipidemia Seropositive rheumatoid arthritis (HCC) Rheumatoid arthritis 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), 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 Personal history of venous thrombosis and embolism Insomnia, unspecified type Pre-operative examination- Primary Preoperative examination, unspecified Anemia due to acute blood loss Acute posthemorrhagic anemia Acquired hypothyroidism Unspecified hypothyroidism Facet hypertrophy of lumbar region Other symptoms referable to back History of DVT of lower extremity Personal history of venous thrombosis and embolism 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), and cerebral infarction without residual deficits Hypocalcemia Insomnia, unspecified type Malignant neoplasm of skin Unspecified malignant neoplasm of skin, site unspecified Mixed hyperlipidemia Osteopenia of multiple sites Other specified rheumatoid arthritis, multiple sites (HCC) S/P total knee replacement using cement, 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 Urge incontinence Venous insufficiency Unspecified venous (peripheral) insufficiency History of diverticulitis Chronic pain of [facility] Pre-operative examination- Primary Preoperative examination, unspecified Primary osteoarthritis of right hip Primary localized osteoarthrosis, pelvic region and thigh Venous insufficiency Unspecified venous (peripheral) insufficiency Urge incontinence Acquired hypothyroidism Unspecified hypothyroidism Anemia due to acute blood loss Acute posthemorrhagic anemia Malignant neoplasm of skin Unspecified malignant neoplasm of skin, site unspecified Mixed hyperlipidemia Seropositive rheumatoid arthritis (HCC) Rheumatoid arthritis 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), 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 Personal history of venous thrombosis and embolism Insomnia, unspecified type Pre-operative examination- Primary Preoperative examination, unspecified Anemia due to acute blood loss Acute posthemorrhagic anemia Acquired hypothyroidism Unspecified hypothyroidism Facet hypertrophy of lumbar region Other symptoms referable to back History of DVT of lower extremity Personal history of venous thrombosis and embolism 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), and cerebral infarction without residual deficits Hypocalcemia Insomnia, unspecified type Malignant neoplasm of skin Unspecified malignant neoplasm of skin, site unspecified Mixed hyperlipidemia Osteopenia of multiple sites Other specified rheumatoid arthritis, multiple sites (HCC) S/P total knee replacement using cement, 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 Urge incontinence Venous insufficiency Unspecified venous (peripheral) insufficiency History of diverticulitis Parotid sialadenitis- Primary documented in this encounter [facility] home Plan of care note* Visit Details Visit Type -PT SOC Discipline -Physical Therapy Problems Problem Description Start Date Status Goals Interve ntions Medication Education Disciplines: Skilled Services 07/26/2023 Active 1 goal linked to scheduled/document ed intervention 1 goal intervention scheduled/document ed in this visit Sepsis Disciplines: Skilled Services 07/26/2023 Active 1 goal linked to scheduled/document ed intervention 1 goal intervention scheduled/document ed in this visit Physician Specific Parameters Disciplines: Skilled Services 07/26/2023 Active 1 goal linked to scheduled/document ed intervention 1 goal intervention scheduled/document ed in this visit Risk for Falls Disciplines: Skilled Services 07/26/2023 Active 1 goal linked to scheduled/document ed intervention 1 goal intervention scheduled/document ed in this visit Pain Disciplines: Skilled Services 07/26/2023 Active 1 goal linked to scheduled/document ed intervention 1 goal intervention scheduled/document ed in this visit High Risk Medications Disciplines: Skilled Services 07/26/2023 Active 1 goal linked to scheduled/document ed intervention 2 goal interventions scheduled/document ed in this visit Advance Directives Disciplines: Skilled Services 07/26/2023 Active 1 goal linked to scheduled/document ed intervention 1 goal intervention scheduled/document ed in this visit PT Impaired muscle performance and/or ROM Disciplines: PT 07/26/2023 Active 1 goal linked to scheduled/document ed intervention 1 goal intervention scheduled/document ed in this visit PT Orthopedic Condition Disciplines: PT 07/26/2023 Active 1 goal linked to scheduled/document ed intervention 3 goal interventions scheduled/document ed in this visit PT Learning Assessment Disciplines: PT 07/26/2023 Active 1 goal linked to scheduled/document ed intervention 1 goal intervention scheduled/document ed in this visit Goals Goal Associated Problem Outcome Goal Met? Visit Notes Patient/caregiver will demonstrate ability to obtain, store, identify and administer ordered medications, keep accurate medication list in home, and adhere to medication schedule Description: Patient/caregiver will demonstrate ability to obtain, store, identify and administer ordered medications, keep accurate medication list in home, and adhere to medication schedule by 09/23/23. Medication Education No Patient/caregiver will be able to identify and report symptoms of sepsis Description: Patient/caregiver will be able to identify signs/symptoms of sepsis infection and will verbalize actions to take if suspected by 09/23/23. . Sepsis No Patient to maintain parameters within physician-specified ranges throughout certification period Physician Specific Parameters No Manage Risk for falls Description: Patient/caregiver will verbalize knowledge of individualized fall prevention strategies by 09/23/23. . Risk for Falls No Manage Pain Description: Patient/caregiver will verbalize knowledge and understanding of appropriate techniques to control pain, including pain medication and non-pharmacological techniques. Patient will verbalize or demonstrate an acceptable level of pain as evidenced by a pain score of <5/10 and improvement in ability to perform activities of daily living to be achieved by 09/23/23. . Pain No Patient/caregiver will teach back high risk medication side effect and precaution education Description: STG Patient/caregiver will verbalize understanding of high risk medication side effects and precautions to be achieved by 07/26/23. LTG Patient/caregiver will continue to verbalize understanding of high risk medication side effects and precautions throughout certification period. High Risk Medications No Patient/caregiver will make healthcare providers aware of and any changes to Advance Directives throughout certification period Advance Directives No Improved Muscle Performance and/or ROM Description: LTG: Patient will demonstrate improved muscle performance to meet functional goals as evidenced by ability to tolerate 10 minutes of standing activity, to be achieved by 08/10/23. . STG: Patient and/or caregiver will verbalize/demonstrate independence with home exercise program, to improve functional mobility, to be achieved by 08/03/23. LTG: Patient will demonstrate improved right knee active range of motion to 0-90 degrees, to meet functional goals, to be achieved by 08/10/23. . PT Impaired muscle performance and/or ROM No Manage Orthopedic Condition Description: Improve patient and/or caregiver understanding of post surgical and/or non-surgical orthopedic intervention management as evidenced by patient and/or caregiver able to verbalize, demonstrate, and teach back instruction, to be achieved by 08/10/23. . PT Orthopedic Condition No Demonstrate understanding of education Description: Patient and/or caregiver will understand educational instruction to be achieved by 08/10/23. . PT Learning Assessment No Interventions Intervention Associated Problem/Goal Status Variance Visit Notes Medication Education Description: Evaluate/instruct patient/caregiver on obtaining, storing, identifying and administering ordered medications as well as keeping accurate medication list in the home and adhereing to medication schedule Problem:Medication Education Goal:Patient/caregive r will demonstrate ability to obtain, store, identify and administer ordered medications, keep accurate medication list in home, and adhere to medication schedule Completed Patient instructed on importance of keeping accurate medication list in home, need to take up-to-date medication list to all medical provider appointments and adhering to medication schedule. Risk of Sepsis Description: Patient is at risk for sepsis. Monitor closely for s/s of sepsis. Problem:Sepsis Goal:Patient/caregive r will be able to identify and report symptoms of sepsis Completed SPO2 Description: Notify Dr. Jefferson if pulse ox is <92% at rest. Problem:Physician Specific Parameters Goal:Patient to maintain parameters within physician-specified ranges throughout certification period Completed Instruct on individual fall risk factors and strategies to prevent falls and injuries caused by falls. Problem:Risk for Falls Goal:Manage Risk for falls Completed PT: Patient instructed on Eliminating Environmental Hazards: Keep pathways clear, Remove unsafe rugs, Move furniture from pathways, Keep rooms and walkways well lit, Install hand rails/grab bars and Wear supportive shoes or non-skid socks Managing Impaired Functional Mobility: Use assistive device(s): front wheeled walker Managing Pain Instruct on pain and instruct on strategies to control pain Problem:Pain Goal:Manage Pain Completed patient instructed on techniques to control pain including Pharmacological measures and Non-Pharmacological measures; rest, positioning/elevation and use of thermal modalities, apply ice to affected area . Opioids- educated on high risk medication Problem:High Risk Medications Goal:Patient/caregive r will teach back high risk medication side effect and precaution education Completed patient educated on taking medication(s) as prescribed by provider. Do not stop medication or alter doses without speaking with your provider. Discuss medication effectiveness or side effect concerns with your provider and home care team. Only take opioids as prescribed, do not share your medications, and take proper precautions in storing and properly disposing of opioids once no longer needed. Possible side effects of opioid medication including sedation, decreased rate of breathing, and constipation. Report over sedation to prescribing provider and practice deep breathing techniques every hour while awake. Prevent constipation by increasing water and fiber intake, increasing activity as tolerated, and use stool softener(s) as prescribed. Antiplatelet- educated on high risk medication Problem:High Risk Medications Goal:Patient/caregive r will teach back high risk medication side effect and precaution education Completed patient educated on taking medication(s) as prescribed by provider. Do not stop medication or alter doses without speaking with your provider. Discuss medication effectiveness or side effect concerns with your provider and home care team. Discuss all medications you are taking, even [id number] medicines, with your provider and pharmacist since many drugs can interact with antiplatelet medications. If you forget to take a dose, DO NOT take a double dose. Take the missed dose as soon as possible on the same day. DO NOT take a double dose the next day to make up for the missed dose. Watch for signs of abnormal or excessive bleeding and bruising (refer to Bleeding Precautions education). Call your health care provider right away if you suspect something is wrong. Determine patient's Advance Directive Status Description: Patient does have advance directives. Patient's Advance Directives determined to be available in Home and EMR Healthcare DPOA and Living Will. Problem:Advance Directives Goal:Patient/caregive r will make healthcare providers aware of and any changes to Advance Directives throughout certification period Completed Discussed Advance Directives with Patient and/or Caregiver. Referred patient to Home Care handbook for further information on Healthcare DPOA & Living Will. Physical Therapy Therapeutic Exercises Problem:PT Impaired muscle performance and/or ROM Goal:Improved Muscle Performance and/or ROM Completed patient instructed on strengthening and range of motion exercises including Supine : GS,QS,, HIPADD, HIP ABD, HEEL SLIDES, SAQ, X 10 supine passive knee ext x 5 min seated knee flexion to 60* with verbal, tactile and written cues for technique . patient instructed to perform home exercise program twice a day which included hourly ambulation. Instruct on orthopedic precautions and weight bearing restrictions Description: Orthopedic precautions including right total knee: no crossing legs, no knee flexed over pillow at rest, no kneeling, no squatting and no twisting. Weight bearing restrictions include: WBAT of involved extremity. Problem:PT Orthopedic Condition Goal:Manage Orthopedic Condition Completed patient instructed on orthopedic precautions and weight bearing restrictions. Instruct on management of edema Problem:PT Orthopedic Condition Goal:Manage Orthopedic Condition Completed Instruct patient on management of edema including elevation of RLE above the level of the heart and ice. Instruct on self-management of post surgical and/or non-surgical orthopedic intervention Problem:PT Orthopedic Condition Goal:Manage Orthopedic Condition Completed patient instructed on managagement of orthopedic condition, staying well hydrated, eating foods with high protein, signs and symptoms of infection, signs and symptoms of DVT/PE, follow provider guidance for showering and instructed on when to call provider. Instruct and educate on knowledge deficits Problem:PT Learning Assessment Goal:Demonstrate understanding of education Completed patient verbalize and/or demonstrate understanding of physical therapy education including orthopedic condition management, weight bearing precautions, surgical precautions, pain management, fall prevention strategies, home safety, functional activity and home exercise program. Education methods include: verbal cues and written instructions. Further education required to improve knowledge and compliance with orthopedic condition management, surgical precautions, pain management, fall prevention strategies, home safety, functional activity and home exercise program. documented in this encounter [facility] Plan of care note* Visit Details Visit Type -PT ROUTINE Discipline -Physical Therapy Problems Problem Description Start Date Status Goals Interve ntions Sepsis Disciplines: Skilled Services 07/26/2023 Active 1 goal linked to scheduled/documen estephania intervention 1 goal intervention scheduled/document ed in this visit Physician Specific Parameters Disciplines: Skilled Services 07/26/2023 Active 1 goal linked to scheduled/documen estephania intervention 1 goal intervention scheduled/document ed in this visit Risk for Falls Disciplines: Skilled Services 07/26/2023 Active 1 goal linked to scheduled/documen estephania intervention 1 goal intervention scheduled/document ed in this visit Pain Disciplines: Skilled Services 07/26/2023 Active 1 goal linked to scheduled/documen estephania intervention 1 goal intervention scheduled/document ed in this visit Advance Directives Disciplines: Skilled Services 07/26/2023 Resolved on 07/29/2023 1 goal linked to scheduled/documen estephania intervention 1 goal intervention scheduled/document ed in this visit PT Impaired muscle performance and/or ROM Disciplines: PT 07/26/2023 Active 1 goal linked to scheduled/documen estephania intervention 1 goal intervention scheduled/document ed in this visit PT Impaired mobility Disciplines: PT 07/26/2023 Active 1 goal linked to scheduled/documen estephania intervention 1 goal intervention scheduled/document ed in this visit PT Impaired gait Disciplines: PT 07/26/2023 Active 1 goal linked to scheduled/documen estephania intervention 1 goal intervention scheduled/document ed in this visit PT Orthopedic Condition Disciplines: PT 07/26/2023 Active 1 goal linked to scheduled/documen estephania intervention 4 goal interventions scheduled/document ed in this visit PT Learning Assessment Disciplines: PT 07/26/2023 Active 1 goal linked to scheduled/documen estephania intervention 1 goal intervention scheduled/document ed in this visit Goals Goal Associated Problem Outcome Goal Met? Visit Notes Patient/caregiver will be able to identify and report symptoms of sepsis Description: Patient/caregiver will be able to identify signs/symptoms of sepsis infection and will verbalize actions to take if suspected by 09/23/23. . Sepsis No Patient to maintain parameters within physician-specified ranges throughout certification period Physician Specific Parameters No Manage Risk for falls Description: Patient/caregiver will verbalize knowledge of individualized fall prevention strategies by 09/23/23. . Risk for Falls No Manage Pain Description: Patient/caregiver will verbalize knowledge and understanding of appropriate techniques to control pain, including pain medication and non-pharmacological techniques. Patient will verbalize or demonstrate an acceptable level of pain as evidenced by a pain score of <5/10 and improvement in ability to perform activities of daily living to be achieved by 09/23/23. . Pain No Patient/caregiver will make healthcare providers aware of and any changes to Advance Directives throughout certification period Advance Directives Completed Yes Improved Muscle Performance and/or ROM Description: LTG: Patient will demonstrate improved muscle performance to meet functional goals as evidenced by ability to tolerate 10 minutes of standing activity, to be achieved by 08/10/23. . STG: Patient and/or caregiver will verbalize/demonstrate independence with home exercise program, to improve functional mobility, to be achieved by 08/03/23. LTG: Patient will demonstrate improved right knee active range of motion to 0-90 degrees, to meet functional goals, to be achieved by 08/10/23. . PT Impaired muscle performance and/or ROM No Improved Transfers Description: STG: Patient will demonstrate safe transfers to/from bed, chair, toilet, shower/tub and car independently with AD, to be achieved by 08/03/23. PT Impaired mobility No Improved Gait Description: LTG: Patient will demonstrate improved gait ability as evidenced by ambulation 100 feet with front wheeled walker independently with AD, to return to safe household and community ambulation, in order to transition to OP PT , to be achieved by 08/10/23. . PT Impaired gait No Manage Orthopedic Condition Description: Improve patient and/or caregiver understanding of post surgical and/or non-surgical orthopedic intervention management as evidenced by patient and/or caregiver able to verbalize, demonstrate, and teach back instruction, to be achieved by 08/10/23. . PT Orthopedic Condition No Demonstrate understanding of education Description: Patient and/or caregiver will understand educational instruction to be achieved by 08/10/23. . PT Learning Assessment No Interventions Intervention Associated Problem/Goal Status Variance Visit Notes Risk of Sepsis Description: Patient is at risk for sepsis. Monitor closely for s/s of sepsis. Problem:Sepsis Goal:Patient/caregive r will be able to identify and report symptoms of sepsis Completed SPO2 Description: Notify Dr. Jefferson if pulse ox is <92% at rest. Problem:Physician Specific Parameters Goal:Patient to maintain parameters within physician-specified ranges throughout certification period Completed Instruct on individual fall risk factors and strategies to prevent falls and injuries caused by falls. Problem:Risk for Falls Goal:Manage Risk for falls Completed PT: Patient instructed on Eliminating Environmental Hazards: Keep pathways clear, Remove unsafe rugs, Move furniture from pathways and Keep rooms and walkways well lit Managing Impaired Functional Mobility: Use assistive device(s): front wheeled walker Managing Pain Instruct on pain and instruct on strategies to control pain Problem:Pain Goal:Manage Pain Completed patient instructed on techniques to control pain including Pharmacological measures and Non-Pharmacological measures; rest, positioning/elevation and use of thermal modalities, apply ice to affected area . Determine patient's Advance Directive Status Description: Patient does have advance directives. Patient's Advance Directives determined to be available in Home and EMR Healthcare DPOA and Living Will. Problem:Advance Directives Goal:Patient/caregive r will make healthcare providers aware of and any changes to Advance Directives throughout certification period Completed Discussed Advance Directives with Patient and/or Caregiver. Referred patient to Home Care handbook for further information on Healthcare DPOA & Living Will. Physical Therapy Therapeutic Exercises Problem:PT Impaired muscle performance and/or ROM Goal:Improved Muscle Performance and/or ROM Completed patient instructed on strengthening and range of motion exercises including Supine : GS,QS,, HIPADD, HIP ABD, HEEL SLIDES, SAQ, X 10 supine passive knee ext x 5 min seated knee flexion to 60* with verbal, tactile and written cues for technique . patient instructed to perform home exercise program twice a day which included hourly ambulation. Physical Therapy Transfer Training Problem:PT Impaired mobility Goal:Improved Transfers Completed Transfer training and instruction to patient on safe transfers to and from bed and chair with stand by assist and verbal cues for technique . Physical Therapy Gait Training Problem:PT Impaired gait Goal:Improved Gait Completed Gait training and instruction to patient on safe ambulation with front wheeled walker for 40' x 2 feet with stand by assist, with verbal cues for corrections of gait deviations including pacing, development of heel toe pattern . Instruct on orthopedic precautions and weight bearing restrictions Description: Orthopedic precautions including right total knee: no crossing legs, no knee flexed over pillow at rest, no kneeling, no squatting and no twisting. Weight bearing restrictions include: WBAT of involved extremity. Problem:PT Orthopedic Condition Goal:Manage Orthopedic Condition Completed patient instructed on orthopedic precautions. Instruct on management of edema Problem:PT Orthopedic Condition Goal:Manage Orthopedic Condition Completed Instruct patient on management of edema including elevation of RLE above the level of the heart and ice. Physical therapy to perform surgical incision/wound management Description: Removal of post-op dressing on POD 7-10 ( 07/28-). If no drainage is present, leave open to air; if drainage is present, cover with clean dressing and contact provider. Problem:PT Orthopedic Condition Goal:Manage Orthopedic Condition Completed Intervention completed this date. Incision clean, dry and well approxiamted with pts permission a photo was uploaded for MD to review Instruct on self-management of post surgical and/or non-surgical orthopedic intervention Problem:PT Orthopedic Condition Goal:Manage Orthopedic Condition Completed patient instructed on managagement of orthopedic condition, staying well hydrated, eating foods with high protein, signs and symptoms of infection, signs and symptoms of DVT/PE, follow provider guidance for showering and instructed on when to call provider. Instruct and educate on knowledge deficits Problem:PT Learning Assessment Goal:Demonstrate understanding of education Completed patient verbalize and/or demonstrate understanding of physical therapy education including orthopedic condition management, weight bearing precautions, surgical precautions, pain management, fall prevention strategies, home safety, functional activity and home exercise program. Education methods include: verbal cues. Further education required to improve knowledge and compliance with fall prevention strategies, home safety, functional activity and home exercise program. [facility] Visit Details Visit Type -PT ROUTINE Discipline -Physical Therapy Problems Problem Description Start Date Status Goals Interve ntions Sepsis Disciplines: Skilled Services 07/26/2023 Active 1 goal linked to scheduled/document ed intervention 1 goal intervention scheduled/document ed in this visit Physician Specific Parameters Disciplines: Skilled Services 07/26/2023 Active 1 goal linked to scheduled/document ed intervention 1 goal intervention scheduled/document ed in this visit Risk for Falls Disciplines: Skilled Services 07/26/2023 Active 1 goal linked to scheduled/document ed intervention 1 goal intervention scheduled/document ed in this visit PT Impaired muscle performance and/or ROM Disciplines: PT 07/26/2023 Active 1 goal linked to scheduled/document ed intervention 1 goal intervention scheduled/document ed in this visit PT Impaired mobility Disciplines: PT 07/26/2023 Active 2 goals linked to scheduled/document ed interventions 2 goal interventions scheduled/document ed in this visit PT Impaired gait Disciplines: PT 07/26/2023 Active 1 goal linked to scheduled/document ed intervention 1 goal intervention scheduled/document ed in this visit PT Orthopedic Condition Disciplines: PT 07/26/2023 Active 1 goal linked to scheduled/document ed intervention 3 goal interventions scheduled/document ed in this visit PT Learning Assessment Disciplines: PT 07/26/2023 Active 1 goal linked to scheduled/document ed intervention 1 goal intervention scheduled/document ed in this visit Goals Goal Associated Problem Outcome Goal Met? Visit Notes Patient/caregiver will be able to identify and report symptoms of sepsis Description: Patient/caregiver will be able to identify signs/symptoms of sepsis infection and will verbalize actions to take if suspected by 09/23/23. . Sepsis No Patient to maintain parameters within physician-specified ranges throughout certification period Physician Specific Parameters No Manage Risk for falls Description: Patient/caregiver will verbalize knowledge of individualized fall prevention strategies by 09/23/23. . Risk for Falls No Improved Muscle Performance and/or ROM Description: LTG: Patient will demonstrate improved muscle performance to meet functional goals as evidenced by ability to tolerate 10 minutes of standing activity, to be achieved by 08/10/23. . STG: Patient and/or caregiver will verbalize/demonstrate independence with home exercise program, to improve functional mobility, to be achieved by 08/03/23. LTG: Patient will demonstrate improved right knee active range of motion to 0-90 degrees, to meet functional goals, to be achieved by 08/10/23. . PT Impaired muscle performance and/or ROM No Improved Transfers Description: STG: Patient will demonstrate safe transfers to/from bed, chair, toilet, shower/tub and car independently with AD, to be achieved by 08/03/23. PT Impaired mobility No Improved Bed Mobility Description: STG: Patient will demonstrate improved bed mobility, ability to position self and supine <> sit independently to be achieved by 08/03/23. PT Impaired mobility No Improved Gait Description: LTG: Patient will demonstrate improved gait ability as evidenced by ambulation 100 feet with front wheeled walker independently with AD, to return to safe household and community ambulation, in order to transition to OP PT , to be achieved by 08/10/23. . PT Impaired gait No Manage Orthopedic Condition Description: Improve patient and/or caregiver understanding of post surgical and/or non-surgical orthopedic intervention management as evidenced by patient and/or caregiver able to verbalize, demonstrate, and teach back instruction, to be achieved by 08/10/23. . PT Orthopedic Condition No Demonstrate understanding of education Description: Patient and/or caregiver will understand educational instruction to be achieved by 08/10/23. . PT Learning Assessment No Interventions Intervention Associated Problem/Goal Status Variance Visit Notes Risk of Sepsis Description: Patient is at risk for sepsis. Monitor closely for s/s of sepsis. Problem:Sepsis Goal:Patient/caregiver will be able to identify and report symptoms of sepsis Completed SPO2 Description: Notify Dr. Jefferson if pulse ox is <92% at rest. Problem:Physician Specific Parameters Goal:Patient to maintain parameters within physician-specified ranges throughout certification period Completed Instruct on individual fall risk factors and strategies to prevent falls and injuries caused by falls. Problem:Risk for Falls Goal:Manage Risk for falls Completed PT: Patient instructed on Eliminating Environmental Hazards: Keep pathways clear, Remove unsafe rugs, Move furniture from pathways, Keep rooms and walkways well lit, Install hand rails/grab bars and Wear supportive shoes or non-skid socks Managing Impaired Functional Mobility: Use assistive device(s): front wheeled walker Managing Pain Physical Therapy Therapeutic Exercises Problem:PT Impaired muscle performance and/or ROM Goal:Improved Muscle Performance and/or ROM Completed patient instructed on strengthening and range of motion exercises including Supine : GS,QS,, HIPADD, HIP ABD, HEEL SLIDES, SAQ, X 10 standing - heel raises, toe raises, knee flexion r , marching r x 10 supine passive knee ext x 5 min seated knee flexion to 77* with verbal, tactile and written cues for technique . patient instructed to perform home exercise program twice a day which included hourly ambulation. Physical Therapy Transfer Training Problem:PT Impaired mobility Goal:Improved Transfers Completed Transfer training and instruction to patient on safe transfers to and from bed and chair with supervision and verbal cues for technqiue . { Physical Therapy Bed Mobility Training Problem:PT Impaired mobility Goal:Improved Bed Mobility Completed Bed mobility training and instruction to patient, including rolling, supine<>sit and repositioning self with supervision and verbal cues for technique Physical Therapy Gait Training Problem:PT Impaired gait Goal:Improved Gait Completed Gait training and instruction to patient on safe ambulation with front wheeled walker for 40' x 2 feet with supervision, with verbal cues for corrections of gait deviations including development of recip pattern and equal stride lengths . Instruct on orthopedic precautions and weight bearing restrictions Description: Orthopedic precautions including right total knee: no crossing legs, no knee flexed over pillow at rest, no kneeling, no squatting and no twisting. Weight bearing restrictions include: WBAT of involved extremity. Problem:PT Orthopedic Condition Goal:Manage Orthopedic Condition Completed patient instructed on orthopedic precautions. Instruct on management of edema Problem:PT Orthopedic Condition Goal:Manage Orthopedic Condition Completed Instruct patient on management of edema including elevation of RLE above the level of the heart and ice. Instruct on self-management of post surgical and/or non-surgical orthopedic intervention Problem:PT Orthopedic Condition Goal:Manage Orthopedic Condition Completed patient instructed on managagement of orthopedic condition, staying well hydrated, eating foods with high protein, signs and symptoms of infection, signs and symptoms of DVT/PE and instructed on when to call provider. Instruct and educate on knowledge deficits Problem:PT Learning Assessment Goal:Demonstrate understanding of education Completed patient verbalize and/or demonstrate understanding of physical therapy education including orthopedic condition management, pain management, fall prevention strategies, home safety, functional activity and home exercise program. Education methods include: verbal cues. Further education required to improve knowledge and compliance with fall prevention strategies, home safety, functional activity and home exercise program. [facility] Visit Details Visit Type -PT ROUTINE Discipline -Physical Therapy Problems Problem Description Start Date Status Goals Interve ntions Sepsis Disciplines: Skilled Services 07/26/2023 Active 1 goal linked to scheduled/document ed intervention 1 goal intervention scheduled/document ed in this visit Physician Specific Parameters Disciplines: Skilled Services 07/26/2023 Active 1 goal linked to scheduled/document ed intervention 1 goal intervention scheduled/document ed in this visit Risk for Falls Disciplines: Skilled Services 07/26/2023 Active 1 goal linked to scheduled/document ed intervention 1 goal intervention scheduled/document ed in this visit PT Impaired muscle performance and/or ROM Disciplines: PT 07/26/2023 Active 1 goal linked to scheduled/document ed intervention 1 goal intervention scheduled/document ed in this visit PT Impaired mobility Disciplines: PT 07/26/2023 Active 2 goals linked to scheduled/document ed interventions 2 goal interventions scheduled/document ed in this visit PT Impaired gait Disciplines: PT 07/26/2023 Active 1 goal linked to scheduled/document ed intervention 1 goal intervention scheduled/document ed in this visit PT Orthopedic Condition Disciplines: PT 07/26/2023 Active 1 goal linked to scheduled/document ed intervention 3 goal interventions scheduled/document ed in this visit PT Learning Assessment Disciplines: PT 07/26/2023 Active 1 goal linked to scheduled/document ed intervention 1 goal intervention scheduled/document ed in this visit Goals Goal Associated Problem Outcome Goal Met? Visit Notes Patient/caregiver will be able to identify and report symptoms of sepsis Description: Patient/caregiver will be able to identify signs/symptoms of sepsis infection and will verbalize actions to take if suspected by 09/23/23. . Sepsis No Patient to maintain parameters within physician-specified ranges throughout certification period Physician Specific Parameters No Manage Risk for falls Description: Patient/caregiver will verbalize knowledge of individualized fall prevention strategies by 09/23/23. . Risk for Falls No Improved Muscle Performance and/or ROM Description: LTG: Patient will demonstrate improved muscle performance to meet functional goals as evidenced by ability to tolerate 10 minutes of standing activity, to be achieved by 08/10/23. . STG: Patient and/or caregiver will verbalize/demonstrate independence with home exercise program, to improve functional mobility, to be achieved by 08/03/23. LTG: Patient will demonstrate improved right knee active range of motion to 0-90 degrees, to meet functional goals, to be achieved by 08/10/23. . PT Impaired muscle performance and/or ROM No Improved Transfers Description: STG: Patient will demonstrate safe transfers to/from bed, chair, toilet, shower/tub and car independently with AD, to be achieved by 08/03/23. PT Impaired mobility No Improved Bed Mobility Description: STG: Patient will demonstrate improved bed mobility, ability to position self and supine <> sit independently to be achieved by 08/03/23. PT Impaired mobility No Improved Gait Description: LTG: Patient will demonstrate improved gait ability as evidenced by ambulation 100 feet with front wheeled walker independently with AD, to return to safe household and community ambulation, in order to transition to OP PT , to be achieved by 08/10/23. . PT Impaired gait No Manage Orthopedic Condition Description: Improve patient and/or caregiver understanding of post surgical and/or non-surgical orthopedic intervention management as evidenced by patient and/or caregiver able to verbalize, demonstrate, and teach back instruction, to be achieved by 08/10/23. . PT Orthopedic Condition No Demonstrate understanding of education Description: Patient and/or caregiver will understand educational instruction to be achieved by 08/10/23. . PT Learning Assessment No Interventions Intervention Associated Problem/Goal Status Variance Visit Notes Risk of Sepsis Description: Patient is at risk for sepsis. Monitor closely for s/s of sepsis. Problem:Sepsis Goal:Patient/caregiver will be able to identify and report symptoms of sepsis Completed SPO2 Description: Notify Dr. Jefferson if pulse ox is <92% at rest. Problem:Physician Specific Parameters Goal:Patient to maintain parameters within physician-specified ranges throughout certification period Completed Instruct on individual fall risk factors and strategies to prevent falls and injuries caused by falls. Problem:Risk for Falls Goal:Manage Risk for falls Completed PT: Patient instructed on Eliminating Environmental Hazards: Keep pathways clear, Remove unsafe rugs, Move furniture from pathways and Keep rooms and walkways well lit Managing Impaired Functional Mobility: Use assistive device(s): front wheeled walker Managing Pain Physical Therapy Therapeutic Exercises Problem:PT Impaired muscle performance and/or ROM Goal:Improved Muscle Performance and/or ROM Completed patient instructed on strengthening and range of motion exercises including Supine : GS,QS,, HIPADD, HIP ABD, HEEL SLIDES, SAQ, X 15 standing - heel raises, toe raises, knee flexion r , marching r x 15 supine passive knee ext x 5 min seated knee flexion to 80* with verbal, tactile and written cues for technique . patient instructed to perform home exercise program twice a day which included hourly ambulation. Physical Therapy Transfer Training Problem:PT Impaired mobility Goal:Improved Transfers Completed Transfer training and instruction to patient on safe transfers to and from bed, chair and toilet with supervision and verbal cues for technique . Physical Therapy Bed Mobility Training Problem:PT Impaired mobility Goal:Improved Bed Mobility Completed Bed mobility training and instruction to patient, including supine<>sit and repositioning self with independent and supervision and verbal cues for technique. { Physical Therapy Gait Training Problem:PT Impaired gait Goal:Improved Gait Completed Gait training and instruction to patient on safe ambulation with front wheeled walker for 40' x 2 feet with supervision, with verbal cues for corrections of gait deviations including development of equal stride lengths and heel toe . Instruct on orthopedic precautions and weight bearing restrictions Description: Orthopedic precautions including right total knee: no crossing legs, no knee flexed over pillow at rest, no kneeling, no squatting and no twisting. Weight bearing restrictions include: WBAT of involved extremity. Problem:PT Orthopedic Condition Goal:Manage Orthopedic Condition Completed patient instructed on orthopedic precautions. Instruct on management of edema Problem:PT Orthopedic Condition Goal:Manage Orthopedic Condition Completed Instruct patient on management of edema including elevation of RLE above the level of the heart and ice. Instruct on self-management of post surgical and/or non-surgical orthopedic intervention Problem:PT Orthopedic Condition Goal:Manage Orthopedic Condition Completed patient instructed on managagement of orthopedic condition, staying well hydrated, eating foods with high protein, signs and symptoms of infection, signs and symptoms of DVT/PE and instructed on when to call provider. Instruct and educate on knowledge deficits Problem:PT Learning Assessment Goal:Demonstrate understanding of education Completed patient verbalize and/or demonstrate understanding of physical therapy education including orthopedic condition management, pain management, fall prevention strategies, home safety, functional activity and home exercise program. Education methods include: verbal cues. Further education required to improve knowledge and compliance with fall prevention strategies, home safety, functional activity and home exercise program. [facility] Visit Details Visit Type -[employer] ROUTINE Discipline -Physical Therapy Problems Problem Description Start Date Status Goals Interve ntions Medication Education Disciplines: Skilled Services 07/26/2023 Active 1 goal linked to scheduled/document ed intervention 1 goal intervention scheduled/document ed in this visit Sepsis Disciplines: Skilled Services 07/26/2023 Active 1 goal linked to scheduled/document ed intervention 1 goal intervention scheduled/document ed in this visit Physician Specific Parameters Disciplines: Skilled Services 07/26/2023 Active 1 goal linked to scheduled/document ed intervention 1 goal intervention scheduled/document ed in this visit Risk for Falls Disciplines: Skilled Services 07/26/2023 Active 1 goal linked to scheduled/document ed intervention 1 goal intervention scheduled/document ed in this visit Pain Disciplines: Skilled Services 07/26/2023 Active 1 goal linked to scheduled/document ed intervention 1 goal intervention scheduled/document ed in this visit Discharge Disciplines: Skilled Services 07/26/2023 Active 1 goal linked to scheduled/document ed intervention 1 goal intervention scheduled/document ed in this visit PT Impaired muscle performance and/or ROM Disciplines: PT 07/26/2023 Active 1 goal linked to scheduled/document ed intervention 1 goal intervention scheduled/document ed in this visit PT Impaired gait Disciplines: PT 07/26/2023 Active 2 goals linked to scheduled/document ed interventions 2 goal interventions scheduled/document ed in this visit PT Orthopedic Condition Disciplines: PT 07/26/2023 Active 1 goal linked to scheduled/document ed intervention 2 goal interventions scheduled/document ed in this visit PT Learning Assessment Disciplines: PT 07/26/2023 Active 1 goal linked to scheduled/document ed intervention 1 goal intervention scheduled/document ed in this visit Goals Goal Associated Problem Outcome Goal Met? Visit Notes Patient/caregiver will demonstrate ability to obtain, store, identify and administer ordered medications, keep accurate medication list in home, and adhere to medication schedule Description: Patient/caregiver will demonstrate ability to obtain, store, identify and administer ordered medications, keep accurate medication list in home, and adhere to medication schedule by 09/23/23. Medication Education No Patient/caregiver will be able to identify and report symptoms of sepsis Description: Patient/caregiver will be able to identify signs/symptoms of sepsis infection and will verbalize actions to take if suspected by 09/23/23. . Sepsis No Patient to maintain parameters within physician-specified ranges throughout certification period Physician Specific Parameters No Manage Risk for falls Description: Patient/caregiver will verbalize knowledge of individualized fall prevention strategies by 09/23/23. . Risk for Falls No Manage Pain Description: Patient/caregiver will verbalize knowledge and understanding of appropriate techniques to control pain, including pain medication and non-pharmacological techniques. Patient will verbalize or demonstrate an acceptable level of pain as evidenced by a pain score of <5/10 and improvement in ability to perform activities of daily living to be achieved by 09/23/23. . Pain No Manage discharge planning Description: Patient/caregiver will verbalize understanding of ongoing discharge plan provided related to disease management, arrangements for outpatient and/or community services, obtaining medications, supplies, and DME, as needed throughout certification period. Discharge No Improved Muscle Performance and/or ROM Description: LTG: Patient will demonstrate improved muscle performance to meet functional goals as evidenced by ability to tolerate 10 minutes of standing activity, to be achieved by 08/10/23. . STG: Patient and/or caregiver will verbalize/demonstrate independence with home exercise program, to improve functional mobility, to be achieved by 08/03/23. LTG: Patient will demonstrate improved right knee active range of motion to 0-90 degrees, to meet functional goals, to be achieved by 08/10/23. . PT Impaired muscle performance and/or ROM No Improved Stair Climbing Description: LTG: Patient will demonstrate improved stair negotiation as evidenced by ascend/descend 12 steps with railing and with cane independently, to safely in case the elevator shoud go out , to be achieved by 08/10/23. . PT Impaired gait No Improved Gait Description: LTG: Patient will demonstrate improved gait ability as evidenced by ambulation 100 feet with front wheeled walker independently with AD, to return to safe household and community ambulation, in order to transition to OP PT , to be achieved by 08/10/23. . PT Impaired gait No Manage Orthopedic Condition Description: Improve patient and/or caregiver understanding of post surgical and/or non-surgical orthopedic intervention management as evidenced by patient and/or caregiver able to verbalize, demonstrate, and teach back instruction, to be achieved by 08/10/23. . PT Orthopedic Condition No Demonstrate understanding of education Description: Patient and/or caregiver will understand educational instruction to be achieved by 08/10/23. . PT Learning Assessment No Interventions Intervention Associated Problem/Goal Status Variance Visit Notes Medication Education Description: Evaluate/instruct patient/caregiver on obtaining, storing, identifying and administering ordered medications as well as keeping accurate medication list in the home and adhereing to medication schedule Problem:Medication Education Goal:Patient/caregi campbell will demonstrate ability to obtain, store, identify and administer ordered medications, keep accurate medication list in home, and adhere to medication schedule Completed Patient instructed on importance of keeping accurate medication list in home. Risk of Sepsis Description: Patient is at risk for sepsis. Monitor closely for s/s of sepsis. Problem:Sepsis Goal:Patient/caregi campbell will be able to identify and report symptoms of sepsis Completed SPO2 Description: Notify Dr. Jefferson if pulse ox is <92% at rest. Problem:Physician Specific Parameters Goal:Patient to maintain parameters within physician-specified ranges throughout certification period Completed Instruct on individual fall risk factors and strategies to prevent falls and injuries caused by falls. Problem:Risk for Falls Goal:Manage Risk for falls Completed PT: Patient instructed on Managing Impaired Functional Mobility: Use assistive device(s): front wheeled walker Instruct on pain and instruct on strategies to control pain Problem:Pain Goal:Manage Pain Completed patient instructed on techniques to control pain including Pharmacological measures and Non-Pharmacological measures; positioning/elevatio n and use of thermal modalities, apply ice to affected area for the following prescribed frequency: prn. Instruct on ongoing discharge plan Problem:Discharge Goal:Manage discharge planning Completed Ongoing Discharge plan: Discharge plan discussed with patient including frequency and duration for home PT and plan for transition to: outpatient therapy. Physical Therapy Therapeutic Exercises Problem:PT Impaired muscle performance and/or ROM Goal:Improved Muscle Performance and/or ROM Completed patient instructed on strengthening and range of motion exercises including ankle pumps, quad and glut sets, hip abd and add, saq and heel slides xs 15each. supine ext hang x's 5min. standing heel toe raises, hams curls and march x's 10 each with verbal and visual cues for correct form. patient instructed to perform home exercise program twice a day which included above ex. Physical Therapy Stair Training Problem:PT Impaired gait Goal:Improved Stair Climbing Patient requested to defer to next visit Physical Therapy Gait Training Problem:PT Impaired gait Goal:Improved Gait Completed Gait training and instruction to patient on safe ambulation with front wheeled walker for 2x's 40 and x's 75 feet with supervision, with verbal cues for corrections of gait deviations including heel to toe . Instruct on management of edema Problem:PT Orthopedic Condition Goal:Manage Orthopedic Condition Completed Instruct patient on management of edema including elevation of RLE above the level of the heart and ice. Instruct on self-management of post surgical and/or non-surgical orthopedic intervention Problem:PT Orthopedic Condition Goal:Manage Orthopedic Condition Completed patient instructed on signs and symptoms of infection, signs and symptoms of DVT/PE, instructed on when to call provider and instructed on when to call 911. Instruct and educate on knowledge deficits Problem:PT Learning Assessment Goal:Demonstrate understanding of education Completed patient verbalize and/or demonstrate understanding of physical therapy education including home exercise program. Education methods include: verbal cues, written instructions and visual cues. Further education required to improve knowledge and compliance with home exercise program. documented in this encounter [facility] for referral (narrative)* Diagnostic Procedure Only (Routine) - Pending Review Specialty Diagnoses / Procedures Referred By Chari bradley Referred To Contact BR IMAGING Diagnoses Encounter for screening mammogram for malignant neoplasm of breast Procedures PAMELA SCREENING SCREENING MAMMOGRAPHY BI 2-VIEW BREAST INC Karina Olivo APRN.CNP [address] [place] [address] [facility] Imaging [address] [place] [address] Referral ID Status Reason Start Date Expiration Date Visits Requested Visits Authorized [id number] Pending Review Auto-Generat ed Referral 09/15/2021 10/15/2022 1 1 [facility] for referral (narrative)* Diagnostic Procedure Only (Routine) - Closed Specialty Diagnoses / Procedures Referred By Chari bradley Referred To Contact BR IMAGING Diagnoses Encounter for screening mammogram for malignant neoplasm of breast Procedures PAMELA SCREENING SCREENING MAMMOGRAPHY BI 2-VIEW BREAST INC Karina Olivo APRN.EMISSION SPECIALIST [address] [place] [address] [facility] Imaging [address] [employer] [place] [address] Referral ID Status Reason Start Date Expiration Date V isits Requested Visits Authorized [id number] Closed Auto-Generate d Referral 09/15/2021 10/15/2022 1 1 [facility] for referral (narrative)* Diagnostic Procedure Only (Routine) - Pending Review Specialty Diagnoses / Procedures Referred By Chari bradley Referred To Contact BR IMAGING Diagnoses Encounter for screening mammogram for malignant neoplasm of breast Procedures PAMELA SCREENING SCREENING MAMMOGRAPHY BI 2-VIEW BREAST INC Karina Olivo APRN.CNP [address] [place] [address] Br Imaging [address] [place] [address] Referral ID Status Reason Start Date Expiration Date Visits Requested Visits Authorized [id number] Pending Review Auto-Generat ed Referral 07/12/2022 08/11/2023 1 1 [facility] for referral (narrative)* Diagnostic Procedure Only (Routine) - Closed Specialty Diagnoses / Procedures Referred By Contac t Referred To Contact XR IMAGING Diagnoses Chronic pain of right knee Procedures XR KNEE GENERAL 4V AP BOTH/PA BOTH/LAT/MERC RIGHT RADIOLOGIC EXAM KNEE COMPLETE 4/MORE VIEWS Mando Giron APRN.CNP [address] [place] [address] Xr Imaging Referral ID Status Reason Start Date Expiration Date V isits Requested Visits Authorized [id number] Closed Auto-Generate d Referral 08/16/2022 09/14/2023 1 1 [facility] for referral (narrative)* - Authorized Specialty Diagnoses / Procedures Referred By Contac t Referred To Contact Diagnoses Degeneration of lumbar or lumbosacral intervertebral disc Lumbar facet arthropathy Trochanteric bursitis of both hips Procedures CONSULT TO PHYSICAL THERAPY Jules Wallace PA-C [address] [place] [address] Referral ID Status Reason Start Date Expiration Date V isits Requested Visits Authorized [id number] Authorized 10/17/2022 01/15/2023 99 99 * Diagnostic Procedure Only (Routine) - Pending Review Specialty Diagnoses / Procedures Referred By Contac t Referred To Contact XR IMAGING Diagnoses Degeneration of lumbar or lumbosacral intervertebral disc Lumbar facet arthropathy Procedures XR LUMBAR MOTION 4V AP/LAT/ FLEX/EXT RADEX SPINE LUMBOSACRAL MINIMUM 4 VIEWS Jules Wallace PA-C [address] [place] [address] Xr Imaging Referral ID Status Reason Start Date Expiration Date Visits Requested Visits Authorized [id number] Pending Review Auto-Generat ed Referral 10/17/2022 11/16/2023 1 1 [facility] for referral (narrative)* Diagnostic Procedure Only (Routine) - Closed Specialty Diagnoses / Procedures Referred By Contac t Referred To Contact BR IMAGING Diagnoses Encounter for screening mammogram for malignant neoplasm of breast Procedures PAMELA SCREENING SCREENING MAMMOGRAPHY BI 2-VIEW BREAST INC CAD Karina Aranda, EMISSION SPECIALIST [address] [place] [address] [facility] Imaging [address] [place] [address] Referral ID Status Reason Start Date Expiration Date V isits Requested Visits Authorized [id number] Closed Auto-Generate d Referral 07/12/2022 08/11/2023 1 1 [facility] for referral (narrative)* Diagnostic Procedure Only (Routine) - Pending Review Specialty Diagnoses / Procedures Referred By Contac t Referred To Contact BR IMAGING Diagnoses Encounter for screening mammogram for malignant neoplasm of breast Procedures PAMELA SCREENING SCREENING MAMMOGRAPHY BI 2-VIEW BREAST INC CAD Po Delgadillo APRN.EMISSION SPECIALIST [address] [place] [address] Br Imaging [address] [place] [address] Referral ID Status Reason Start Date Expiration Date Visits Requested Visits Authorized [id number] Pending Review Auto-Generat ed Referral 10/02/2023 08/21/2024 1 1 T [facility] for referral (narrative)* Diagnostic Procedure Only (Routine) - Closed Specialty Diagnoses / Procedures Referred By Contac t Referred To Contact BR IMAGING Diagnoses Encounter for screening mammogram for malignant neoplasm of breast Procedures PAMELA SCREENING SCREENING MAMMOGRAPHY BI 2-VIEW BREAST INC CAD Po Delgadillo APRN.CNP [address] [place] [address] Br Imaging [address] [place] [address] Referral ID Status Reason Start Date Expiration Date V isits Requested Visits Authorized [id number] Closed Auto-Generate d Referral 10/02/2023 08/21/2024 1 1 [facility] for referral (narrative)* Diagnostic Procedure Only (Routine) - Authorized Specialty Diagnoses / Procedures Referred By Contac t Referred To Contact XR IMAGING Diagnoses Osteopenia of multiple sites Encounter for long-term (current) use of medications Procedures [place] [address] [place] [address] [place] [address] Referral ID Status Reason Start Date Expiration Date Visits Requested Visits Authorized [id number] Authorized Auto-Generat ed Referral 12/26/2023 11/13/2024 1 1 [facility] for referral (narrative)* Diagnostic Procedure Only (Routine) - Closed Specialty Diagnoses / Procedures Referred By Contac t Referred To Contact XR IMAGING Diagnoses Chronic right shoulder pain Procedures XR SHOULDER GENERAL 3V OR MORE AP/TRUE AP/OTHER RIGHT RADEX SHOULDER COMPLETE MINIMUM 2 VIEWS Erica Renee, SENIOR PUBLICATIONS SPECIALIST.EMISSION SPECIALIST [address] [place] [address] [place] [address] Referral ID Status Reason Start Date Expiration Date V isits Requested Visits Authorized [id number] Closed Auto-Generate d Referral 01/20/2024 02/18/2025 1 1 * Physical Therapy (Routine) - Authorized Specialty Diagnoses / Procedures Referred By Contac t Referred To Contact [facility] Diagnoses Chronic right shoulder pain Procedures CONSULT TO PHYSICAL THERAPY PHYSICAL THERAPY EVALUATION HIGH COMPLEX 45 MINS Erica Renee, SENIOR PUBLICATIONS SPECIALIST.EMISSION SPECIALIST [address] [place] [address] [facility] [place] [address] [place] [address] Referral ID Status Reason Start Date Expiration Date Visits Requested Visits Authorized [id number] Authorized PCP Requested Referral Auto-Generate d Referral 01/20/2024 01/19/2025 99 99 [facility] for referral (narrative)* Diagnostic Procedure Only (Routine) - Closed Specialty Diagnoses / Procedures Referred By Contac t Referred To Contact XR IMAGING Diagnoses Right knee pain, unspecified chronicity Procedures XR KNEE POST OP 3V AP/LAT/MERCHANT RIGHT RADIOLOGIC EXAMINATION KNEE 3 VIEWS Mando Giron APRN.EMISSION SPECIALIST [address] [place] [address] [place] [address] Referral ID Status Reason Start Date Expiration Date V isits Requested Visits Authorized [id number] Closed Auto-Generate d Referral 08/01/2023 08/30/2024 1 1 [facility] for referral (narrative)* Diagnostic Procedure Only (Routine) - Closed Specialty Diagnoses / Procedures Referred By Contac t Referred To Contact XR IMAGING Diagnoses Chronic pain of right knee Procedures XR KNEE GENERAL 4V AP BOTH/PA BOTH/LAT/MERC RIGHT RADIOLOGIC EXAM KNEE COMPLETE 4/MORE VIEWS Mando Giron APRN.EMISSION SPECIALIST [address] [place] [address] [place] [address] Referral ID Status Reason Start Date Expiration Date V isits Requested Visits Authorized [id number] Closed Auto-Generate d Referral 08/16/2022 09/14/2023 1 1 [facility] for referral (narrative)* Diagnostic Procedure Only (Routine) - Closed Specialty Diagnoses / Procedures Referred By Contac t Referred To Contact XR IMAGING Diagnoses Pain in right hip Procedures XR HIP 2V AP/LAT RIGHT (AK,FL,ME) RADEX HIP UNILATERAL WITH PELVIS 2-3 VIEWS Kenneth Altamirano PA-C [address] [place] [address] [place] [address] Referral ID Status Reason Start Date Expiration Date V isits Requested Visits Authorized [id number] Closed Auto-Generate d Referral 09/17/2022 10/17/2023 1 1 [facility] for referral (narrative)* Diagnostic Procedure Only (Routine) - Closed Specialty Diagnoses / Procedures Referred By Contac t Referred To Contact XR IMAGING Diagnoses Bilateral hip pain Procedures XR PELVIS 1V AP RADIOLOGIC EXAMINATION PELVIS 1/2 VIEWS Mando Giron APRN.EMISSION SPECIALIST [address] [address] [place] [address] Referral ID Status Reason Start Date Expiration Date V isits Requested Visits Authorized [id number] Closed Auto-Generate d Referral 03/06/2022 04/04/2023 1 1 [facility] for visit Narrative* Diagnostic Procedure Only (Routine) - Closed Specialty Diagnoses / Procedures Referred By Contac t Referred To Contact BR IMAG[facility] Diagnoses Encounter for screening mammogram for malignant neoplasm of breast Procedures PAMELA SCREENING SCREENING MAMMOGRAPHY BI 2-VIEW BREAST INC CAD Karina Aranda APRN.EMISSION SPECIALIST [address] [place] [address] [facility] [address] [place] [address] Referral ID Status Reason Start Date Expiration Date V isits Requested Visits Authorized [id number] Closed Auto-Generate d Referral 09/15/2021 10/15/2022 1 1 [facility] for visit Narrative* Diagnostic Procedure Only (Routine) - Closed Specialty Diagnoses / Procedures Referred By Contac t Referred To Contact BR IMAGING Diagnoses Encounter for screening mammogram for malignant neoplasm of breast Procedures PAMELA SCREENING SCREENING MAMMOGRAPHY BI 2-VIEW BREAST INC CAD DeborahKarina APRN.EMISSION SPECIALIST [address] [place] [address] [facility] [address] [place] [address] Referral ID Status Reason Start Date Expiration Date V isits Requested Visits Authorized [id number] Closed Auto-Generate d Referral 07/12/2022 08/11/2023 1 1 [facility] for visit Narrative* Diagnostic Procedure Only (Routine) - Closed Specialty Diagnoses / Procedures Referred By Contac t Referred To Contact BR IMAG[facility] Diagnoses Encounter for screening mammogram for malignant neoplasm of breast Procedures PAMELA SCREENING SCREENING MAMMOGRAPHY BI 2-VIEW BREAST INC Po Caruso, SENIOR PUBLICATIONS SPECIALIST.EMISSION SPECIALIST [address] [place] [address] [facility] [address] [place] [address] Referral ID Status Reason Start Date Expiration Date V isits Requested Visits Authorized [id number] Closed Auto-Generate d Referral 10/02/2023 08/21/2024 1 1 [facility] for visit Narrative* Diagnostic Procedure Only (Routine) - Closed Specialty Diagnoses / Procedures Referred By Contac t Referred To Contact XR IMAGING Diagnoses Osteopenia of multiple sites Encounter for long-term (current) use of medications Procedures [place] [address] [place] [address] [place] [address] Referral ID Status Reason Start Date Expiration Date V isits Requested Visits Authorized [id number] Closed Auto-Generate d Referral 12/26/2023 11/13/2024 1 1 [facility] for visit Narrative* Diagnostic Procedure Only (Routine) - Closed Specialty Diagnoses / Procedures Referred By Contac t Referred To Contact XR IMAGING Diagnoses Chronic right shoulder pain Procedures XR SHOULDER GENERAL 3V OR MORE AP/TRUE AP/OTHER RIGHT RADEX SHOULDER COMPLETE MINIMUM 2 VIEWS Erica Renee, SENIOR PUBLICATIONS SPECIALIST.EMISSION SPECIALIST [address] [place] [address] [place] [address] Referral ID Status Reason Start Date Expiration Date V isits Requested Visits Authorized [id number] Closed Auto-Generate d Referral 01/20/2024 02/18/2025 1 1 [facility] for visit Narrative* Diagnostic Procedure Only (Routine) - Closed Specialty Diagnoses / Procedures Referred By Contac t Referred To Contact XR IMAGING Diagnoses Right knee pain, unspecified chronicity Procedures XR KNEE POST OP 3V AP/LAT/MERCHANT RIGHT RADIOLOGIC EXAMINATION KNEE 3 VIEWS Mando Giron APRN.EMISSION SPECIALIST [address] [place] [address] [place] [address] Referral ID Status Reason Start Date Expiration Date V isits Requested Visits Authorized [id number] Closed Auto-Generate d Referral 08/01/2023 08/30/2024 1 1 [facility] for visit Narrative* Diagnostic Procedure Only (Routine) - Closed Specialty Diagnoses / Procedures Referred By Contac t Referred To Contact XR IMAGING Diagnoses Chronic pain of right knee Procedures XR KNEE GENERAL 4V AP BOTH/PA BOTH/LAT/MERC RIGHT RADIOLOGIC EXAM KNEE COMPLETE 4/MORE VIEWS Mando Giron APRN.EMISSION SPECIALIST [address] [place] [address] [place] [address] Referral ID Status Reason Start Date Expiration Date V isits Requested Visits Authorized [id number] Closed Auto-Generate d Referral 08/16/2022 09/14/2023 1 1 [facility] for visit Narrative* Diagnostic Procedure Only (Routine) - Closed Specialty Diagnoses / Procedures Referred By Contac t Referred To Contact XR IMAGING Diagnoses Pain in right hip Procedures XR HIP 2V AP/LAT RIGHT (AK,FL,ME) RADEX HIP UNILATERAL WITH PELVIS 2-3 VIEWS Kenneth Altamirano PA-C [address] [place] [address] [place] [address] Referral ID Status Reason Start Date Expiration Date V isits Requested Visits Authorized [id number] Closed Auto-Generate d Referral 09/17/2022 10/17/2023 1 1 [facility] for visit Narrative* Diagnostic Procedure Only (Routine) - Closed Specialty Diagnoses / Procedures Referred By Contac t Referred To Contact XR IMAGING Diagnoses Bilateral hip pain Procedures XR PELVIS 1V AP RADIOLOGIC EXAMINATION PELVIS 1/2 VIEWS Mando Giron APRN.EMISSION SPECIALIST [address] [place], [place] [address] [place] [address] Referral ID Status Reason Start Date Expiration Date V isits Requested Visits Authorized [id number] Closed Auto-Generate d Referral 03/06/2022 04/04/2023 [facility] Procedure Only (Routine) - Closed Specialty Diagnoses / Procedures Referred By Contac t Referred To Contact XR IMAGING Diagnoses Chronic pain of right knee Procedures XR KNEE POST OP 3V AP/LAT/MERCHANT RIGHT RADIOLOGIC EXAMINATION KNEE 3 VIEWS Mando Giron APRN.EMISSION SPECIALIST [address] [place] [address] [place] [address] Referral ID Status Reason Start Date Expiration Date V isits Requested Visits Authorized [id number] Closed Auto-Generate d Referral 02/11/2024 03/12/2025 1 1 [facility] Reason for Referral Specialty Diagnoses / Procedures Referred By Contac t Referred To Contact Vascular Surgery Diagnoses Lower leg edema Procedures CONSULT TO VASCULAR SURGERY OFFICE/OUTPATIENT [facility] MDM 60-74 MINUTES Karina Aranda APRN.EMISSION SPECIALIST [address] [place] [address] Referral ID Status Reason Start Date Expiration Date Visits Requested Visits Authorized [id number] Authorized PCP Requested Referral 08/07/2021 08/07/2022 1 1 Specialty Diagnoses / Procedures Referred By Contac t Referred To Contact [facility] Diagnoses Degeneration of lumbar or lumbosacral intervertebral disc Lumbar facet arthropathy Trochanteric bursitis of both hips Procedures PT REHAB FOLLOW UP ORDER THERAPEUTIC EXERCISES RE, EA 15 MIN. Pt [facility] [address] [place] [address] [facility] [place] [address] [place] [address] Referral ID Status Reason Start Date Expiration Date Visits Requested Visits Authorized [id number] Pending Review PCP Requested Referral Auto-Generate d Referral 11/07/2022 02/05/2023 1 1 Specialty Diagnoses / Procedures Referred By Contac t Referred To Contact [facility] Diagnoses Gait instability Procedures CONSULT TO PHYSICAL THERAPY PHYSICAL THERAPY EVALUATION HIGH COMPLEX 45 MINS Mando Giron APRN.EMISSION SPECIALIST [address] [place] [address] [facility] [place] [address] [place] [address] Referral ID Status Reason Start Date Expiration Date Visits Requested Visits Authorized [id number] Authorized PCP Requested Referral Auto-Generate d Referral 02/19/2025 99 99 Advance Directives Documents on File Type Date Recorded Patient High Risk Ob Expl anation Advance Directive(s) 02/13/2021 10:10 AM Advance Directive(s) 01/25/2021 12:37 PM Advance Directive(s) 04/18/2017 10:43 AM Advance Directive(s) 11/03/2015 2:24 PM Advance Directive(s) 08/15/2015 8:33 AM Advance Directive(s) 07/12/2015 3:01 PM Advance Directive(s) 02/08/2015 3:17 PM Advance Directive(s) 06/13/2011 12:00 AM Latest Code Status on File Code Status Date Activated Date Inactivated Comments Full Code 02/17/2021 4:30 PM Documents on File Type Date Recorded Patient High Risk Ob Expl anation Advance Directive(s) 02/13/2021 10:10 AM Advance Directive(s) 01/25/2021 12:37 PM Advance Directive(s) 04/18/2017 10:43 AM Advance Directive(s) 11/03/2015 2:24 PM Advance Directive(s) 08/15/2015 8:33 AM Advance Directive(s) 07/12/2015 3:01 PM Advance Directive(s) 02/08/2015 3:17 PM Advance Directive(s) 06/13/2011 12:00 AM Latest Code Status on File Code Status Date Activated Date Inactivated Comments Full Code 02/17/2021 4:30 PM Documents on File Type Date Recorded Patient High Risk Ob Expl anation Advance Directive(s) 02/08/2015 3:17 PM Advance Directive(s) 06/13/2011 Documents on File Type Date Recorded Patient High Risk Ob Expl anation Advance Directive(s) 02/08/2015 3:17 PM Advance Directive(s) 06/13/2011 Latest Code Status on File Code Status Date Activated Date Inactivated Comments Full Code 02/17/2021 4:30 PM Latest Code Status on File Code Status Date Activated Date Inactivated Comments Full Code 02/17/2021 4:30 PM Date Activated Date Inactivated Comments 02/17/2021 4:30 PM 07/22/2023 10:26 AM Date Activated Date Inactivated Comments 02/17/2021 4:30 PM 07/22/2023 10:26 AM Documents on File Type Date Recorded Patient High Risk Ob Expl anation Advance Directive(s) 07/22/2023 10:24 AM Advance Directive(s) 06/13/2011 Date Activated Date Inactivated Comments 07/26/2023 1:11 PM Date Activated Date Inactivated Comments 02/17/2021 4:30 PM 07/22/2023 10:26 AM Documents on File Type Date Recorded Patient High Risk Ob Expl anation Advance Directive(s) 07/22/2023 10:24 AM Advance Directive(s) 06/13/2011 Date Activated Date Inactivated Comments 07/26/2023 1:11 PM Date Activated Date Inactivated Comments 02/17/2021 4:30 PM 07/22/2023 10:26 AM Medications Administered Section Inactive Administered Medications - up to 3 most recent administrations Medication Order MAR Action Action Date Dose Rate Site abatacept 500 mg in NaCl 0.9% 100 mL (ORENCIA) 500 mg, INTRAVENOUS, at 200 mL/hr, Administer over 30 Minutes, ONCE, 1 dose, On Sat08/15/21 at 1330, TOTAL VOLUME ---- Expires 1800 08/15/21 Administer with 0.2 micron filter. New Bag/Syringe/Bottle 08/15/2021 1:37 PM EDT 500 mg 200 mL/hr Inactive Administered Medications - up to 3 most recent administrations Medication Order MAR Action Action Date Dose Rate Site abatacept 500 mg in NaCl 0.9% 100 mL (ORENCIA) 500 mg, INTRAVENOUS, at 200 mL/hr, Administer over 30 Minutes, ONCE, 1 dose, On Sat09/14/21 at 1430, TOTAL VOLUME - Expires: 09/15/21 @ 1435 Administer with 0.2 micron filter. New Bag/Syringe/Bottle 09/14/2021 2:49 PM EDT 500 mg 200 mL/hr acetaminophen 1,000 mg tab(s) (TYLENOL) 1,000 mg, ORAL, ONCE, 1 dose, On Sat09/14/21 at 1430, No more than 4000 mg of acetaminophen should be given per day (FROM ALL SOURCES), If ordered PRN for pain, patient/guardian may elect to receive this medication for higher pain levels INSTEAD of the opioid, if preferred: N/A Given 09/14/2021 3:05 PM EDT 1,000 mg zoledronic acid 5 mg PREMIX piggyback (RECLAST) 5 mg, INTRAVENOUS, at 400 mL/hr, Administer over 15 Minutes, ONCE, 1 dose, On [place] 09/14/21 at 1430, Hazardous Potential Reproductive Risk Drug: Use appropriate PPE. New Bag/Syringe/Bottle 09/14/2021 3:22 PM EDT 5 mg 400 mL/hr Inactive Administered Medications - up to 3 most recent administrations Medication Order MAR Action Action Date Dose Rate Site abatacept 500 mg in NaCl 0.9% 100 mL (ORENCIA) 500 mg, INTRAVENOUS, at 200 mL/hr, Administer over 30 Minutes, ONCE, 1 dose, On Sat10/31/21 at 1330, TOTAL VOLUME ---- Expires 1800 10/31/21 Administer with 0.2 micron filter. New Bag/Syringe/Bottle 10/31/2021 2:21 PM EDT 500 mg 200 mL/hr Inactive Administered Medications - up to 3 most recent administrations Medication Order MAR Action Action Date Dose Rate Site abatacept 500 mg in NaCl 0.9% 100 mL (ORENCIA) 500 mg, INTRAVENOUS, at 200 mL/hr, Administer over 30 Minutes, ONCE, 1 dose, On Sat11/28/21 at 1600, TOTAL VOLUME - exp 1500 11/29/21 (room temp) Administer with 0.2 micron filter. New Bag/Syringe/Bottle 11/28/2021 3:44 PM EDT 500 mg 200 mL/hr Inactive Administered Medications - up to 3 most recent administrations Medication Order MAR Action Action Date Dose Rate Site abatacept 500 mg in NaCl 0.9% 100 mL (ORENCIA) 500 mg, INTRAVENOUS, at 200 mL/hr, Administer over 30 Minutes, ONCE, 1 dose, On Sat01/23/22 at 1600, TOTAL VOLUME - 100 ml Administer with 0.2 micron filter. New Bag/Syringe/Bottle 01/23/2022 3:41 PM EDT 500 mg 200 mL/hr Inactive Administered Medications - up to 3 most recent administrations Medication Order MAR Action Action Date Dose Rate Site abatacept 500 mg in NaCl 0.9% 100 mL (ORENCIA) 500 mg, INTRAVENOUS, Administer over 30 Minutes, ONCE, 1 dose, On Sat02/27/22 at 1330, exp 1200 02/28/22 (room temp) Administer with 0.2 micron filter. New Bag/Syringe/Bottle 02/27/2022 1:40 PM EDT 500 mg Inactive Administered Medications - up to 3 most recent administrations Medication Order MAR Action Action Date Dose Rate Site abatacept 500 mg in NaCl 0.9% 100 mL (ORENCIA) 500 mg, INTRAVENOUS, Administer over 30 Minutes, ONCE, 1 dose, On Sat05/09/22 at 1230, exp 1200 05/10/22 (room temp) ) Administer with 0.2 micron filter. New Bag/Syringe/Bottle 05/09/2022 12:15 PM EST 500 mg Inactive Administered Medications - up to 3 most recent administrations Medication Order MAR Action Action Date Dose Rate Site abatacept 500 mg in NaCl 0.9% 100 mL (ORENCIA) 500 mg, INTRAVENOUS, Administer over 30 Minutes, ONCE, 1 dose, On Sat06/06/22 at 1330, exp immediate use (room temp) Administer with 0.2 micron filter. New Bag/Syringe/Bottle 06/06/2022 1:45 PM EST 500 mg Inactive Administered Medications - up to 3 most recent administrations Medication Order MAR Action Action Date Dose Rate Site abatacept 500 mg in NaCl 0.9% 100 mL (ORENCIA) 500 mg, INTRAVENOUS, Administer over 30 Minutes, ONCE, 1 dose, On Sat07/04/22 at 1330, exp 1345 07/05/22 Administer with 0.2 micron filter. New Bag/Syringe/Bottle 07/04/2022 1:49 PM EST 500 mg Inactive Administered Medications - up to 3 most recent administrations Medication Order MAR Action Action Date Dose Rate Site abatacept 500 mg in NaCl 0.9% 100 mL (ORENCIA) 500 mg, INTRAVENOUS, Administer over 30 Minutes, ONCE, 1 dose, On Sat08/01/22 at 1330, exp 1300 08/02/22 (room temp) Administer with 0.2 micron filter. New Bag/Syringe/Bottle 08/01/2022 1:45 PM EDT 500 mg Inactive Administered Medications - up to 3 most recent administrations Medication Order MAR Action Action Date Dose Rate Site lidocaine (PF) 10 mg/mL (1 %) 3 mL injection (XYLOCAINE) 3 mL, Injection - FOR ORTHO USE ONLY, ONE TIME INJECTION, 1 dose, Starting on Migdalia 08/16/22 at 0853, Until Migdalia 08/16/22 at 0853 Given 08/16/2022 8:53 AM EDT 3 mL Knee, Right triamcinolone acetonide 80 mg injection (KeNALog 40) 80 mg, Injection - FOR ORTHO USE ONLY, ONE TIME INJECTION, 1 dose, Starting on Migdalia 08/16/22 at 0853, Until Migdalia 08/16/22 at 0853 Given 08/16/2022 8:53 AM EDT 80 mg Knee, Right Inactive Administered Medications - up to 3 most recent administrations Medication Order MAR Action Action Date Dose Rate Site abatacept 500 mg in NaCl 0.9% 100 mL (ORENCIA) 500 mg, INTRAVENOUS, Administer over 30 Minutes, ONCE, 1 dose, On Sat08/29/22 at 1300, exp immediate use (room temp) Administer with 0.2 micron filter. New Bag/Syringe/Bottle 08/29/2022 1:20 PM EDT 500 mg Inactive Administered Medications - up to 3 most recent administrations Medication Order MAR Action Action Date Dose Rate Site abatacept 500 mg in NaCl 0.9% 100 mL (ORENCIA) 500 mg, INTRAVENOUS, Administer over 30 Minutes, ONCE, 1 dose, On Sat10/24/22 at 1330, exp exp immediate use (room temp) Administer with 0.2 micron filter. New Bag/Syringe/Bottle 10/24/2022 1:46 PM EDT 500 mg Inactive Administered Medications - up to 3 most recent administrations Medication Order MAR Action Action Date Dose Rate Site abatacept 500 mg in NaCl 0.9% 100 mL (ORENCIA) 500 mg, INTRAVENOUS, Administer over 30 Minutes, ONCE, 1 dose, On Sat12/20/22 at 1500, exp 1330 11/24/22 (room temp) Administer with 0.2 micron filter. New Bag/Syringe/Bottle 12/20/2022 3:12 PM EDT 500 mg Inactive Administered Medications - up to 3 most recent administrations Medication Order MAR Action Action Date Dose Rate Site abatacept 500 mg in NaCl 0.9% 100 mL (ORENCIA) 500 mg, INTRAVENOUS, Administer over 30 Minutes, ONCE, 1 dose, On Sat01/16/23 at 1330, exp 1330 01/17/23 (room temp) Administer with 0.2 micron filter. New Bag/Syringe/Bottle 01/16/2023 1:50 PM EDT 500 mg Inactive Administered Medications - up to 3 most recent administrations Medication Order MAR Action Action Date Dose Rate Site abatacept 500 mg in NaCl 0.9% 100 mL (ORENCIA) 500 mg, INTRAVENOUS, Administer over 30 Minutes, ONCE, 1 dose, On Migd[place] 02/14/23 at 1400, exp 1600 02/14/23 (room temp) Administer with 0.2 micron filter. New Bag/Syringe/Bottle 02/14/2023 2:18 PM EDT 500 mg Inactive Administered Medications - up to 3 most recent administrations Medication Order MAR Action Action Date Dose Rate Site abatacept 500 mg in NaCl 0.9% 100 mL (ORENCIA) 500 mg, INTRAVENOUS, Administer over 30 Minutes, ONCE, 1 dose, On Sat03/13/23 at 1330, exp 1600 03/13/23 (room temp) Administer with 0.2 micron filter. New Bag/Syringe/Bottle 03/13/2023 1:45 PM EDT 500 mg Inactive Administered Medications - up to 3 most recent administrations Medication Order MAR Action Action Date Dose Rate Site abatacept 500 mg in NaCl 0.9% 100 mL (ORENCIA) 500 mg, INTRAVENOUS, Administer over 30 Minutes, ONCE, 1 dose, On Sat04/10/23 at 1400, exp 1400 04/11/23 (room temp) Administer with 0.2 micron filter. New Bag/Syringe/Bottle 04/10/2023 2:09 PM EST 500 mg Health Concerns Problem Noted Date Diagnosed Date 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 05/16/2023 Problem Noted Date Diagnosed Date 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 05/16/2023 Problem Noted Date Diagnosed Date 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 05/16/2023 Problem Noted Date Diagnosed Date 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 05/16/2023 Problem Noted Date Diagnosed Date 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 05/16/2023 Problem Noted Date Diagnosed Date 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 05/16/2023 Active Problems Noted Date Diagnosed Date 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 05/16/2023 Active Problems Noted Date Diagnosed Date 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 05/16/2023 Active Problems Noted Date Diagnosed Date 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 05/16/2023 Active Problems Noted Date Diagnosed Date 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 05/16/2023 Active Problems Noted Date Diagnosed Date 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 05/16/2023 Active Problems Noted Date Diagnosed Date 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 05/16/2023 Active Problems Noted Date Diagnosed Date 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 05/16/2023 Active Problems Noted Date Diagnosed Date 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 05/16/2023 Active Problems Noted Date Diagnosed Date 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 05/16/2023 Active Problems Noted Date Diagnosed Date 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 05/16/2023 Active Problems Noted Date Diagnosed Date 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 05/16/2023 Active Problems Noted Date Diagnosed Date 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 05/16/2023 Summary Purpose Family History No Family History Records FoundNo Family History Records Found Additional Source Comments Source Comments (unrecognize d section and content) In the event this informatio n is protected by the Federal Confidentiality of Alcohol and Drug Abuse Patient Records regulations: The Federal rules restrict any use of the information to criminally investigate or prosecute any alcohol or drug abuse patient.[facility] the event this information is protected by the Federal Confidentiality of Alcohol and Drug Abuse Patient Records regulations: The Federal rules restrict any use of the information to criminally investigate or prosecute any alcohol or drug abuse patient.[facility]In the event this information is protected by the Federal Confidentiality of Alcohol and Drug Abuse Patient Records regulations: The Federal rules restrict any use of the information to criminally investigate or prosecute any alcohol or drug abuse patient.[facility]In the event this information is protected by the Federal Confidentiality of Alcohol and Drug Abuse Patient Records regulations: The Federal rules restrict any use of the information to criminally investigate or prosecute any alcohol or drug abuse patient.[facility]In the event this information is protected by the Federal Confidentiality of Alcohol and Drug Abuse Patient Records regulations: The Federal rules restrict any use of the information to criminally investigate or prosecute any alcohol or drug abuse patient.[facility]In the event this information is protected by the Federal Confidentiality of Alcohol and Drug Abuse Patient Records regulations: The Federal rules restrict any use of the information to criminally investigate or prosecute any alcohol or drug abuse patient.[facility]In the event this information is protected by the Federal Confidentiality of Alcohol and Drug Abuse Patient Records regulations: The Federal rules restrict any use of the information to criminally investigate or prosecute any alcohol or drug abuse patient.[facility]In the event this information is protected by the Federal Confidentiality of Alcohol and Drug Abuse Patient Records regulations: The Federal rules restrict any use of the information to criminally investigate or prosecute any alcohol or drug abuse patient.[facility]In the event this information is protected by the Federal Confidentiality of Alcohol and Drug Abuse Patient Records regulations: The Federal rules restrict any use of the information to criminally investigate or prosecute any alcohol or drug abuse patient.[facility] CenterIn the event this information is protected by the Federal Confidentiality of Alcohol and Drug Abuse Patient Records regulations: The Federal rules restrict any use of the information to criminally investigate or prosecute any alcohol or drug abuse patient.[facility] CenterIn the event this information is protected by the Federal Confidentiality of Alcohol and Drug Abuse Patient Records regulations: The Federal rules restrict any use of the information to criminally investigate or prosecute any alcohol or drug abuse patient.[facility] CenterIn the event this information is protected by the Federal Confidentiality of Alcohol and Drug Abuse Patient Records regulations: The Federal rules restrict any use of the information to criminally investigate or prosecute any alcohol or drug abuse patient.[facility] CenterIn the event this information is protected by the Federal Confidentiality of Alcohol and Drug Abuse Patient Records regulations: The Federal rules restrict any use of the information to criminally investigate or prosecute any alcohol or drug abuse patient.[facility]In the event this information is protected by the Federal Confidentiality of Alcohol and Drug Abuse Patient Records regulations: The Federal rules restrict any use of the information to criminally investigate or prosecute any alcohol or drug abuse patient.[facility]In the event this information is protected by the Federal Confidentiality of Alcohol and Drug Abuse Patient Records regulations: The Federal rules restrict any use of the information to criminally investigate or prosecute any alcohol or drug abuse patient.[facility] CenterIn the event this information is protected by the Federal Confidentiality of Alcohol and Drug Abuse Patient Records regulations: The Federal rules restrict any use of the information to criminally investigate or prosecute any alcohol or drug abuse patient.[facility] CenterIn the event this information is protected by the Federal Confidentiality of Alcohol and Drug Abuse Patient Records regulations: The Federal rules restrict any use of the information to criminally investigate or prosecute any alcohol or drug abuse patient.[facility] CenterIn the event this information is protected by the Federal Confidentiality of Alcohol and Drug Abuse Patient Records regulations: The Federal rules restrict any use of the information to criminally investigate or prosecute any alcohol or drug abuse patient.[facility] CenterIn the event this information is protected by the Federal Confidentiality of Alcohol and Drug Abuse Patient Records regulations: The Federal rules restrict any use of the information to criminally investigate or prosecute any alcohol or drug abuse patient.[facility] CenterIn the event this information is protected by the Federal Confidentiality of Alcohol and Drug Abuse Patient Records regulations: The Federal rules restrict any use of the information to criminally investigate or prosecute any alcohol or drug abuse patient.[facility] CenterIn the event this information is protected by the Federal Confidentiality of Alcohol and Drug Abuse Patient Records regulations: The Federal rules restrict any use of the information to criminally investigate or prosecute any alcohol or drug abuse patient.[facility] CenterIn the event this information is protected by the Federal Confidentiality of Alcohol and Drug Abuse Patient Records regulations: The Federal rules restrict any use of the information to criminally investigate or prosecute any alcohol or drug abuse patient.[facility] CenterIn the event this information is protected by the Federal Confidentiality of Alcohol and Drug Abuse Patient Records regulations: The Federal rules restrict any use of the information to criminally investigate or prosecute any alcohol or drug abuse patient.[facility] CenterIn the event this information is protected by the Federal Confidentiality of Alcohol and Drug Abuse Patient Records regulations: The Federal rules restrict any use of the information to criminally investigate or prosecute any alcohol or drug abuse patient.[facility] CenterIn the event this information is protected by the Federal Confidentiality of Alcohol and Drug Abuse Patient Records regulations: The Federal rules restrict any use of the information to criminally investigate or prosecute any alcohol or drug abuse patient.[facility] CenterIn the event this information is protected by the Federal Confidentiality of Alcohol and Drug Abuse Patient Records regulations: The Federal rules restrict any use of the information to criminally investigate or prosecute any alcohol or drug abuse patient.[facility] CenterIn the event this information is protected by the Federal Confidentiality of Alcohol and Drug Abuse Patient Records regulations: The Federal rules restrict any use of the information to criminally investigate or prosecute any alcohol or drug abuse patient.[facility] CenterIn the event this information is protected by the Federal Confidentiality of Alcohol and Drug Abuse Patient Records regulations: The Federal rules restrict any use of the information to criminally investigate or prosecute any alcohol or drug abuse patient.[facility] CenterIn the event this information is protected by the Federal Confidentiality of Alcohol and Drug Abuse Patient Records regulations: The Federal rules restrict any use of the information to criminally investigate or prosecute any alcohol or drug abuse patient.[facility] CenterIn the event this information is protected by the Federal Confidentiality of Alcohol and Drug Abuse Patient Records regulations: The Federal rules restrict any use of the information to criminally investigate or prosecute any alcohol or drug abuse patient.[facility] CenterIn the event this information is protected by the Federal Confidentiality of Alcohol and Drug Abuse Patient Records regulations: The Federal rules restrict any use of the information to criminally investigate or prosecute any alcohol or drug abuse patient.[facility] CenterIn the event this information is protected by the Federal Confidentiality of Alcohol and Drug Abuse Patient Records regulations: The Federal rules restrict any use of the information to criminally investigate or prosecute any alcohol or drug abuse patient.[facility] CenterIn the event this information is protected by the Federal Confidentiality of Alcohol and Drug Abuse Patient Records regulations: The Federal rules restrict any use of the information to criminally investigate or prosecute any alcohol or drug abuse patient.[facility] CenterIn the event this information is protected by the Federal Confidentiality of Alcohol and Drug Abuse Patient Records regulations: The Federal rules restrict any use of the information to criminally investigate or prosecute any alcohol or drug abuse patient.[facility]In the event this information is protected by the Federal Confidentiality of Alcohol and Drug Abuse Patient Records regulations: The Federal rules restrict any use of the information to criminally investigate or prosecute any alcohol or drug abuse patient.[facility]In the event this information is protected by the Federal Confidentiality of Alcohol and Drug Abuse Patient Records regulations: The Federal rules restrict any use of the information to criminally investigate or prosecute any alcohol or drug abuse patient.[facility]In the event this information is protected by the Federal Confidentiality of Alcohol and Drug Abuse Patient Records regulations: The Federal rules restrict any use of the information to criminally investigate or prosecute any alcohol or drug abuse patient.[facility]In the event this information is protected by the Federal Confidentiality of Alcohol and Drug Abuse Patient Records regulations: The Federal rules restrict any use of the information to criminally investigate or prosecute any alcohol or drug abuse patient.[facility]In the event this information is protected by the Federal Confidentiality of Alcohol and Drug Abuse Patient Records regulations: The Federal rules restrict any use of the information to criminally investigate or prosecute any alcohol or drug abuse patient.[facility]In the event this information is protected by the Federal Confidentiality of Alcohol and Drug Abuse Patient Records regulations: The Federal rules restrict any use of the information to criminally investigate or prosecute any alcohol or drug abuse patient.[facility]In the event this information is protected by the Federal Confidentiality of Alcohol and Drug Abuse Patient Records regulations: The Federal rules restrict any use of the information to criminally investigate or prosecute any alcohol or drug abuse patient.[facility]In the event this information is protected by the Federal Confidentiality of Alcohol and Drug Abuse Patient Records regulations: The Federal rules restrict any use of the information to criminally investigate or prosecute any alcohol or drug abuse patient.[facility]In the event this information is protected by the Federal Confidentiality of Alcohol and Drug Abuse Patient Records regulations: The Federal rules restrict any use of the information to criminally investigate or prosecute any alcohol or drug abuse patient.[facility] CenterIn the event this information is protected by the Federal Confidentiality of Alcohol and Drug Abuse Patient Records regulations: The Federal rules restrict any use of the information to criminally investigate or prosecute any alcohol or drug abuse patient.[facility]In the event this information is protected by the Federal Confidentiality of Alcohol and Drug Abuse Patient Records regulations: The Federal rules restrict any use of the information to criminally investigate or prosecute any alcohol or drug abuse patient.[facility]In the event this information is protected by the Federal Confidentiality of Alcohol and Drug Abuse Patient Records regulations: The Federal rules restrict any use of the information to criminally investigate or prosecute any alcohol or drug abuse patient.[facility]In the event this information is protected by the Federal Confidentiality of Alcohol and Drug Abuse Patient Records regulations: The Federal rules restrict any use of the information to criminally investigate or prosecute any alcohol or drug abuse patient.[facility]In the event this information is protected by the Federal Confidentiality of Alcohol and Drug Abuse Patient Records regulations: The Federal rules restrict any use of the information to criminally investigate or prosecute any alcohol or drug abuse patient.[facility]In the event this information is protected by the Federal Confidentiality of Alcohol and Drug Abuse Patient Records regulations: The Federal rules restrict any use of the information to criminally investigate or prosecute any alcohol or drug abuse patient.[facility]In the event this information is protected by the Federal Confidentiality of Alcohol and Drug Abuse Patient Records regulations: The Federal rules restrict any use of the information to criminally investigate or prosecute any alcohol or drug abuse patient.[facility]In the event this information is protected by the Federal Confidentiality of Alcohol and Drug Abuse Patient Records regulations: The Federal rules restrict any use of the information to criminally investigate or prosecute any alcohol or drug abuse patient.[facility]In the event this information is protected by the Federal Confidentiality of Alcohol and Drug Abuse Patient Records regulations: The Federal rules restrict any use of the information to criminally investigate or prosecute any alcohol or drug abuse patient.[facility]In the event this information is protected by the Federal Confidentiality of Alcohol and Drug Abuse Patient Records regulations: The Federal rules restrict any use of the information to criminally investigate or prosecute any alcohol or drug abuse patient.[facility]In the event this information is protected by the Federal Confidentiality of Alcohol and Drug Abuse Patient Records regulations: The Federal rules restrict any use of the information to criminally investigate or prosecute any alcohol or drug abuse patient.[facility]In the event this information is protected by the Federal Confidentiality of Alcohol and Drug Abuse Patient Records regulations: The Federal rules restrict any use of the information to criminally investigate or prosecute any alcohol or drug abuse patient.[facility]In the event this information is protected by the Federal Confidentiality of Alcohol and Drug Abuse Patient Records regulations: The Federal rules restrict any use of the information to criminally investigate or prosecute any alcohol or drug abuse patient.[facility]In the event this information is protected by the Federal Confidentiality of Alcohol and Drug Abuse Patient Records regulations: The Federal rules restrict any use of the information to criminally investigate or prosecute any alcohol or drug abuse patient.[facility]In the event this information is protected by the Federal Confidentiality of Alcohol and Drug Abuse Patient Records regulations: The Federal rules restrict any use of the information to criminally investigate or prosecute any alcohol or drug abuse patient.[facility]In the event this information is protected by the Federal Confidentiality of Alcohol and Drug Abuse Patient Records regulations: The Federal rules restrict any use of the information to criminally investigate or prosecute any alcohol or drug abuse patient.[facility]In the event this information is protected by the Federal Confidentiality of Alcohol and Drug Abuse Patient Records regulations: The Federal rules restrict any use of the information to criminally investigate or prosecute any alcohol or drug abuse patient.[facility]In the event this information is protected by the Federal Confidentiality of Alcohol and Drug Abuse Patient Records regulations: The Federal rules restrict any use of the information to criminally investigate or prosecute any alcohol or drug abuse patient.[facility]In the event this information is protected by the Federal Confidentiality of Alcohol and Drug Abuse Patient Records regulations: The Federal rules restrict any use of the information to criminally investigate or prosecute any alcohol or drug abuse patient.[facility]In the event this information is protected by the Federal Confidentiality of Alcohol and Drug Abuse Patient Records regulations: The Federal rules restrict any use of the information to criminally investigate or prosecute any alcohol or drug abuse patient.[facility]In the event this information is protected by the Federal Confidentiality of Alcohol and Drug Abuse Patient Records regulations: The Federal rules restrict any use of the information to criminally investigate or prosecute any alcohol or drug abuse patient.[facility]In the event this information is protected by the Federal Confidentiality of Alcohol and Drug Abuse Patient Records regulations: The Federal rules restrict any use of the information to criminally investigate or prosecute any alcohol or drug abuse patient.[facility] CenterIn the event this information is protected by the Federal Confidentiality of Alcohol and Drug Abuse Patient Records regulations: The Federal rules restrict any use of the information to criminally investigate or prosecute any alcohol or drug abuse patient.[facility] CenterIn the event this information is protected by the Federal Confidentiality of Alcohol and Drug Abuse Patient Records regulations: The Federal rules restrict any use of the information to criminally investigate or prosecute any alcohol or drug abuse patient.[facility] CenterIn the event this information is protected by the Federal Confidentiality of Alcohol and Drug Abuse Patient Records regulations: The Federal rules restrict any use of the information to criminally investigate or prosecute any alcohol or drug abuse patient.[facility] CenterIn the event this information is protected by the Federal Confidentiality of Alcohol and Drug Abuse Patient Records regulations: The Federal rules restrict any use of the information to criminally investigate or prosecute any alcohol or drug abuse patient.[facility] CenterIn the event this information is protected by the Federal Confidentiality of Alcohol and Drug Abuse Patient Records regulations: The Federal rules restrict any use of the information to criminally investigate or prosecute any alcohol or drug abuse patient.[facility] CenterIn the event this information is protected by the Federal Confidentiality of Alcohol and Drug Abuse Patient Records regulations: The Federal rules restrict any use of the information to criminally investigate or prosecute any alcohol or drug abuse patient.[facility] CenterIn the event this information is protected by the Federal Confidentiality of Alcohol and Drug Abuse Patient Records regulations: The Federal rules restrict any use of the information to criminally investigate or prosecute any alcohol or drug abuse patient.[facility] CenterIn the event this information is protected by the Federal Confidentiality of Alcohol and Drug Abuse Patient Records regulations: The Federal rules restrict any use of the information to criminally investigate or prosecute any alcohol or drug abuse patient.[facility] CenterIn the event this information is protected by the Federal Confidentiality of Alcohol and Drug Abuse Patient Records regulations: The Federal rules restrict any use of the information to criminally investigate or prosecute any alcohol or drug abuse patient.[facility] CenterIn the event this information is protected by the Federal Confidentiality of Alcohol and Drug Abuse Patient Records regulations: The Federal rules restrict any use of the information to criminally investigate or prosecute any alcohol or drug abuse patient.[facility] CenterIn the event this information is protected by the Federal Confidentiality of Alcohol and Drug Abuse Patient Records regulations: The Federal rules restrict any use of the information to criminally investigate or prosecute any alcohol or drug abuse patient.[facility] CenterIn the event this information is protected by the Federal Confidentiality of Alcohol and Drug Abuse Patient Records regulations: The Federal rules restrict any use of the information to criminally investigate or prosecute any alcohol or drug abuse patient.[facility] CenterIn the event this information is protected by the Federal Confidentiality of Alcohol and Drug Abuse Patient Records regulations: The Federal rules restrict any use of the information to criminally investigate or prosecute any alcohol or drug abuse patient.[facility] CenterIn the event this information is protected by the Federal Confidentiality of Alcohol and Drug Abuse Patient Records regulations: The Federal rules restrict any use of the information to criminally investigate or prosecute any alcohol or drug abuse patient.[facility] CenterIn the event this information is protected by the Federal Confidentiality of Alcohol and Drug Abuse Patient Records regulations: The Federal rules restrict any use of the information to criminally investigate or prosecute any alcohol or drug abuse patient.[facility] CenterIn the event this information is protected by the Federal Confidentiality of Alcohol and Drug Abuse Patient Records regulations: The Federal rules restrict any use of the information to criminally investigate or prosecute any alcohol or drug abuse patient.[facility] CenterIn the event this information is protected by the Federal Confidentiality of Alcohol and Drug Abuse Patient Records regulations: The Federal rules restrict any use of the information to criminally investigate or prosecute any alcohol or drug abuse patient.[facility] CenterIn the event this information is protected by the Federal Confidentiality of Alcohol and Drug Abuse Patient Records regulations: The Federal rules restrict any use of the information to criminally investigate or prosecute any alcohol or drug abuse patient.[facility] CenterIn the event this information is protected by the Federal Confidentiality of Alcohol and Drug Abuse Patient Records regulations: The Federal rules restrict any use of the information to criminally investigate or prosecute any alcohol or drug abuse patient.[facility] CenterIn the event this information is protected by the Federal Confidentiality of Alcohol and Drug Abuse Patient Records regulations: The Federal rules restrict any use of the information to criminally investigate or prosecute any alcohol or drug abuse patient.[facility] CenterIn the event this information is protected by the Federal Confidentiality of Alcohol and Drug Abuse Patient Records regulations: The Federal rules restrict any use of the information to criminally investigate or prosecute any alcohol or drug abuse patient.[facility] CenterIn the event this information is protected by the Federal Confidentiality of Alcohol and Drug Abuse Patient Records regulations: The Federal rules restrict any use of the information to criminally investigate or prosecute any alcohol or drug abuse patient.[facility] CenterIn the event this information is protected by the Federal Confidentiality of Alcohol and Drug Abuse Patient Records regulations: The Federal rules restrict any use of the information to criminally investigate or prosecute any alcohol or drug abuse patient.[facility] CenterIn the event this information is protected by the Federal Confidentiality of Alcohol and Drug Abuse Patient Records regulations: The Federal rules restrict any use of the information to criminally investigate or prosecute any alcohol or drug abuse patient.[facility] CenterIn the event this information is protected by the Federal Confidentiality of Alcohol and Drug Abuse Patient Records regulations: The Federal rules restrict any use of the information to criminally investigate or prosecute any alcohol or drug abuse patient.[facility] CenterIn the event this information is protected by the Federal Confidentiality of Alcohol and Drug Abuse Patient Records regulations: The Federal rules restrict any use of the information to criminally investigate or prosecute any alcohol or drug abuse patient.[facility] CenterIn the event this information is protected by the Federal Confidentiality of Alcohol and Drug Abuse Patient Records regulations: The Federal rules restrict any use of the information to criminally investigate or prosecute any alcohol or drug abuse patient.[facility] CenterIn the event this information is protected by the Federal Confidentiality of Alcohol and Drug Abuse Patient Records regulations: The Federal rules restrict any use of the information to criminally investigate or prosecute any alcohol or drug abuse patient.[facility] CenterIn the event this information is protected by the Federal Confidentiality of Alcohol and Drug Abuse Patient Records regulations: The Federal rules restrict any use of the information to criminally investigate or prosecute any alcohol or drug abuse patient.[facility] CenterIn the event this information is protected by the Federal Confidentiality of Alcohol and Drug Abuse Patient Records regulations: The Federal rules restrict any use of the information to criminally investigate or prosecute any alcohol or drug abuse patient.[facility] CenterIn the event this information is protected by the Federal Confidentiality of Alcohol and Drug Abuse Patient Records regulations: The Federal rules restrict any use of the information to criminally investigate or prosecute any alcohol or drug abuse patient.[facility] CenterIn the event this information is protected by the Federal Confidentiality of Alcohol and Drug Abuse Patient Records regulations: The Federal rules restrict any use of the information to criminally investigate or prosecute any alcohol or drug abuse patient.[facility] CenterIn the event this information is protected by the Federal Confidentiality of Alcohol and Drug Abuse Patient Records regulations: The Federal rules restrict any use of the information to criminally investigate or prosecute any alcohol or drug abuse patient.[facility] CenterIn the event this information is protected by the Federal Confidentiality of Alcohol and Drug Abuse Patient Records regulations: The Federal rules restrict any use of the information to criminally investigate or prosecute any alcohol or drug abuse patient.[facility] CenterIn the event this information is protected by the Federal Confidentiality of Alcohol and Drug Abuse Patient Records regulations: The Federal rules restrict any use of the information to criminally investigate or prosecute any alcohol or drug abuse patient.[facility] CenterIn the event this information is protected by the Federal Confidentiality of Alcohol and Drug Abuse Patient Records regulations: The Federal rules restrict any use of the information to criminally investigate or prosecute any alcohol or drug abuse patient.[facility] CenterIn the event this information is protected by the Federal Confidentiality of Alcohol and Drug Abuse Patient Records regulations: The Federal rules restrict any use of the information to criminally investigate or prosecute any alcohol or drug abuse patient.[facility] CenterIn the event this information is protected by the Federal Confidentiality of Alcohol and Drug Abuse Patient Records regulations: The Federal rules restrict any use of the information to criminally investigate or prosecute any alcohol or drug abuse patient.[facility] CenterIn the event this information is protected by the Federal Confidentiality of Alcohol and Drug Abuse Patient Records regulations: The Federal rules restrict any use of the information to criminally investigate or prosecute any alcohol or drug abuse patient.[facility] CenterIn the event this information is protected by the Federal Confidentiality of Alcohol and Drug Abuse Patient Records regulations: The Federal rules restrict any use of the information to criminally investigate or prosecute any alcohol or drug abuse patient.[facility] CenterIn the event this information is protected by the Federal Confidentiality of Alcohol and Drug Abuse Patient Records regulations: The Federal rules restrict any use of the information to criminally investigate or prosecute any alcohol or drug abuse patient.[facility] CenterIn the event this information is protected by the Federal Confidentiality of Alcohol and Drug Abuse Patient Records regulations: The Federal rules restrict any use of the information to criminally investigate or prosecute any alcohol or drug abuse patient.[facility] CenterIn the event this information is protected by the Federal Confidentiality of Alcohol and Drug Abuse Patient Records regulations: The Federal rules restrict any use of the information to criminally investigate or prosecute any alcohol or drug abuse patient.[facility] CenterIn the event this information is protected by the Federal Confidentiality of Alcohol and Drug Abuse Patient Records regulations: The Federal rules restrict any use of the information to criminally investigate or prosecute any alcohol or drug abuse patient.[facility] CenterIn the event this information is protected by the Federal Confidentiality of Alcohol and Drug Abuse Patient Records regulations: The Federal rules restrict any use of the information to criminally investigate or prosecute any alcohol or drug abuse patient.[facility] CenterIn the event this information is protected by the Federal Confidentiality of Alcohol and Drug Abuse Patient Records regulations: The Federal rules restrict any use of the information to criminally investigate or prosecute any alcohol or drug abuse patient.[facility] CenterIn the event this information is protected by the Federal Confidentiality of Alcohol and Drug Abuse Patient Records regulations: The Federal rules restrict any use of the information to criminally investigate or prosecute any alcohol or drug abuse patient.[facility] CenterIn the event this information is protected by the Federal Confidentiality of Alcohol and Drug Abuse Patient Records regulations: The Federal rules restrict any use of the information to criminally investigate or prosecute any alcohol or drug abuse patient.[facility] CenterIn the event this information is protected by the Federal Confidentiality of Alcohol and Drug Abuse Patient Records regulations: The Federal rules restrict any use of the information to criminally investigate or prosecute any alcohol or drug abuse patient.[facility] CenterIn the event this information is protected by the Federal Confidentiality of Alcohol and Drug Abuse Patient Records regulations: The Federal rules restrict any use of the information to criminally investigate or prosecute any alcohol or drug abuse patient.[facility] CenterIn the event this information is protected by the Federal Confidentiality of Alcohol and Drug Abuse Patient Records regulations: The Federal rules restrict any use of the information to criminally investigate or prosecute any alcohol or drug abuse patient.[facility] CenterIn the event this information is protected by the Federal Confidentiality of Alcohol and Drug Abuse Patient Records regulations: The Federal rules restrict any use of the information to criminally investigate or prosecute any alcohol or drug abuse patient.[facility] CenterIn the event this information is protected by the Federal Confidentiality of Alcohol and Drug Abuse Patient Records regulations: The Federal rules restrict any use of the information to criminally investigate or prosecute any alcohol or drug abuse patient.[facility] CenterIn the event this information is protected by the Federal Confidentiality of Alcohol and Drug Abuse Patient Records regulations: The Federal rules restrict any use of the information to criminally investigate or prosecute any alcohol or drug abuse patient.[facility] CenterIn the event this information is protected by the Federal Confidentiality of Alcohol and Drug Abuse Patient Records regulations: The Federal rules restrict any use of the information to criminally investigate or prosecute any alcohol or drug abuse patient.[facility] CenterIn the event this information is protected by the Federal Confidentiality of Alcohol and Drug Abuse Patient Records regulations: The Federal rules restrict any use of the information to criminally investigate or prosecute any alcohol or drug abuse patient.[facility] CenterIn the event this information is protected by the Federal Confidentiality of Alcohol and Drug Abuse Patient Records regulations: The Federal rules restrict any use of the information to criminally investigate or prosecute any alcohol or drug abuse patient.[facility] CenterIn the event this information is protected by the Federal Confidentiality of Alcohol and Drug Abuse Patient Records regulations: The Federal rules restrict any use of the information to criminally investigate or prosecute any alcohol or drug abuse patient.[facility] CenterIn the event this information is protected by the Federal Confidentiality of Alcohol and Drug Abuse Patient Records regulations: The Federal rules restrict any use of the information to criminally investigate or prosecute any alcohol or drug abuse patient.[facility] CenterIn the event this information is protected by the Federal Confidentiality of Alcohol and Drug Abuse Patient Records regulations: The Federal rules restrict any use of the information to criminally investigate or prosecute any alcohol or drug abuse patient.[facility] CenterIn the event this information is protected by the Federal Confidentiality of Alcohol and Drug Abuse Patient Records regulations: The Federal rules restrict any use of the information to criminally investigate or prosecute any alcohol or drug abuse patient.[facility] CenterIn the event this information is protected by the Federal Confidentiality of Alcohol and Drug Abuse Patient Records regulations: The Federal rules restrict any use of the information to criminally investigate or prosecute any alcohol or drug abuse patient.[facility] CenterIn the event this information is protected by the Federal Confidentiality of Alcohol and Drug Abuse Patient Records regulations: The Federal rules restrict any use of the information to criminally investigate or prosecute any alcohol or drug abuse patient.[facility] CenterIn the event this information is protected by the Federal Confidentiality of Alcohol and Drug Abuse Patient Records regulations: The Federal rules restrict any use of the information to criminally investigate or prosecute any alcohol or drug abuse patient.[facility] CenterIn the event this information is protected by the Federal Confidentiality of Alcohol and Drug Abuse Patient Records regulations: The Federal rules restrict any use of the information to criminally investigate or prosecute any alcohol or drug abuse patient.[facility] CenterIn the event this information is protected by the Federal Confidentiality of Alcohol and Drug Abuse Patient Records regulations: The Federal rules restrict any use of the information to criminally investigate or prosecute any alcohol or drug abuse patient.[facility] CenterIn the event this information is protected by the Federal Confidentiality of Alcohol and Drug Abuse Patient Records regulations: The Federal rules restrict any use of the information to criminally investigate or prosecute any alcohol or drug abuse patient.[facility] CenterIn the event this information is protected by the Federal Confidentiality of Alcohol and Drug Abuse Patient Records regulations: The Federal rules restrict any use of the information to criminally investigate or prosecute any alcohol or drug abuse patient.[facility] CenterIn the event this information is protected by the Federal Confidentiality of Alcohol and Drug Abuse Patient Records regulations: The Federal rules restrict any use of the information to criminally investigate or prosecute any alcohol or drug abuse patient.[facility] CenterIn the event this information is protected by the Federal Confidentiality of Alcohol and Drug Abuse Patient Records regulations: The Federal rules restrict any use of the information to criminally investigate or prosecute any alcohol or drug abuse patient.[facility] CenterIn the event this information is protected by the Federal Confidentiality of Alcohol and Drug Abuse Patient Records regulations: The Federal rules restrict any use of the information to criminally investigate or prosecute any alcohol or drug abuse patient.[facility] CenterIn the event this information is protected by the Federal Confidentiality of Alcohol and Drug Abuse Patient Records regulations: The Federal rules restrict any use of the information to criminally investigate or prosecute any alcohol or drug abuse patient.[facility] CenterIn the event this information is protected by the Federal Confidentiality of Alcohol and Drug Abuse Patient Records regulations: The Federal rules restrict any use of the information to criminally investigate or prosecute any alcohol or drug abuse patient.[facility] CenterIn the event this information is protected by the Federal Confidentiality of Alcohol and Drug Abuse Patient Records regulations: The Federal rules restrict any use of the information to criminally investigate or prosecute any alcohol or drug abuse patient.[facility] CenterIn the event this information is protected by the Federal Confidentiality of Alcohol and Drug Abuse Patient Records regulations: The Federal rules restrict any use of the information to criminally investigate or prosecute any alcohol or drug abuse patient.[facility] Reason for Visit (unrecogniz ed section and content) Reason Comments Physical Therapy Specialty Diagnoses / Procedures Referred By Contac t Referred To Contact [facility] Diagnoses Chronic pain of right knee Procedures CONSULT TO PHYSICAL THERAPY PHYSICAL THERAPY EVALUATION HIGH COMPLEX 45 MINS Sabina Jefferson MD [address] [address] [facility] [place] [address] [place] [address] Referral ID Status Reason Start Date Expiration Date Visits Requested Visits Authorized [id number] Authorized PCP Requested Referral Auto-Generate d Referral 05/16/2023 05/15/2024 99 99 Reason Comments PT Discharge Reason Comments Physical Therapy PT Discharge Specialty Diagnoses / Procedures Referred By Contac t Referred To Contact [facility] Diagnoses Trochanteric bursitis of right hip Procedures CONSULT TO PHYSICAL THERAPY PHYSICAL THERAPY EVALUATION HIGH COMPLEX 45 MINS Sabina Jefferson MD [address] [address] [facility] [place] [address] [place] [address] Referral ID Status Reason Start Date Expiration Date Visits Requested Visits Authorized [id number] Authorized PCP Requested Referral Auto-Generate d Referral 09/20/2022 09/20/2023 99 99 Reason Comments Chemotherapy Treatment Specialty Diagnoses / Procedures Referred By Contac t Referred To Contact Diagnoses Seropositive rheumatoid arthritis (HCC) Procedures abatacept 250 mg Solr 1 [place] [address] [place] [address] [place] [address] Referral ID Status Reason Start Date Expiration Date V isits Requested Visits Authorized [id number] Authorized 03/04/2020 08/15/2021 1 1 Reason Comments Recheck Reason Comments Refill Request Reason Comments appt. change Reason Comments Non-Chemotherapy Treatment Specialty Diagnoses / Procedures Referred By Contac t Referred To Contact Diagnoses Seropositive rheumatoid arthritis ([place]) [place] [address] [id number] [place] [address] Referral ID Status Reason Start Date Expiration Date V isits Requested Visits Authorized [id number] Authorized 03/04/2020 06/02/2020 1 1 Specialty Diagnoses / Procedures Referred By Contac t Referred To Contact Diagnoses Seropositive rheumatoid arthritis (HCC) Procedures abatacept 250 mg Solr 1 [place] [address] [id number] [facility] [place] [address] [place] [address] Reason Comments Established Patient EVLT right leg Specialty Diagnoses / Procedures Referred By Contac t Referred To Contact Peripheral Vascular / VASCULAR SURGERY Diagnoses EVLT RIGHT LEG Procedures EVLT Char Alfaro, DO [address] [address] Char Alfaro, DO [address] [place] [address] Referral ID Status Reason Start Date Expiration Date Visits Re quested Visits Authorized [id number] Closed 09/22/2021 12/21/2021 1 1 Reason Comments Swelling post EVLT Reason Comments Established Patient 149/66 Reason Comments Established Patient Reason Comments Request Outside Medical Records Brain im ages [place] Dec 2021 Reason Comments Hospital Follow Up Reason Comments Orders Reason Onset Date Comments Refill Request 02/18/2022 Reason Comments Appointment Reason Comments Follow Up Hip Replacement Reason Comments Established Patient 170/80 Reason Comments Follow Up Reason Comments Results Labs Reason Comments Injections Knee Pain Established Patient Reason Comments New Patient Low Back Pain Right Hip Pain Left Hip Pain Reason Comments PT Eval Specialty Diagnoses / Procedures Referred By Contac t Referred To Contact PHYSICAL THERAPY Diagnoses Degeneration of lumbar or lumbosacral intervertebral disc Lumbar facet arthropathy Trochanteric bursitis of both hips Procedures CONSULT TO PHYSICAL THERAPY Jules Wallace, OLIVERIO [address] [place] [address] Pt [facility] [address] [place] [address] Referral ID Status Reason Start Date Expiration Date V isits Requested Visits Authorized [id number] Authorized 10/17/2022 01/15/2023 99 99 Reason Onset Date Comments Refill Request 11/11/2022 Reason Comments Rash Forehead X 1 day Reason Comments Medication Question [facility], holding Celebrex/ASA prior to procedure. Forms [facility] Reason Onset Date Comments Refill Request 03/11/2023 Reason Onset Date Comments Refill Request 04/14/2023 Reason Comments Pre-Op Teaching Specialty Diagnoses / Procedures Referred By Contcasa t Referred To Contact CT IMAGING Diagnoses Chronic pain of right knee Procedures CT KNEE WO IVCON RIGHT CT LOWER EXTREMITY W/O CONTRAST MATERIAL Sabina Jefferson MD [address] [place] [address] [place] [address] Referral ID Status Reason Start Date Expiration Date V isits Requested Visits Authorized [id number] Closed Auto-Generate d Referral 05/16/2023 06/14/2024 1 1 Reason Comments Consult Reason Comments Patient Question Reason Comments Home Care Confirmation Call Reason Onset Date Comments Refill Request 07/25/2023 Reason Comments Home Care Medication interacti on Reason Comments Home Care OP PT orders Reason Onset Date Comments Refill Request 07/31/2023 Reason Comments Knee Replacement Post Op Reason Comments PT Eval Specialty Diagnoses / Procedures Referred By Chari t Referred To Contact [facility] Diagnoses Primary osteoarthritis of right knee Procedures CONSULT TO PHYSICAL THERAPY PHYSICAL THERAPY EVALUATION HIGH COMPLEX 45 MINS Mando Giron, PATRICIA.[facility] [address] [address] [facility] [place] [address] [place] [address] Referral ID Status Reason Start Date Expiration Date Visits Requested Visits Authorized [id number] Authorized PCP Requested Referral Auto-Generate d Referral 08/01/2023 07/31/2024 99 99 Referral ID Status Reason Start Date Expiration Date Visits Requested Visits Authorized [id number] Authorized PCP Requested Referral Auto-Generate d Referral 08/01/2023 07/31/2024 99 99 Reason Comments Post Op Knee Replacement Referral ID Status Reason Start Date Expiration Date Visits Re quested Visits Authorized [id number] Closed 03/04/2020 08/15/2021 1 1 Reason Comments Established Patient Reason Comments Medicare Wellness Exam Establish Care Reason Comments Resident Care Technician - Other Reclast+Orencia Reason Comments Additional Labs Reason Comments Pain (Shoulder Pain) Reason Onset Date Comments Follow Up discussion Immunizations 02/14/2024 Flu vaccination Reason Comments Established Patient Follow Up Reason Comments Blocked parotid gland Redness with swell ing & pain on RIGHT side of neck; Treated by [facility] (unrecognized sec tion and content) Email Production Consultant Relationship Specialty Start Date End Date Jerry Arnold MD [address] [place] [address] PCP - General Family Practice 08/30/17 Vignesh Diallo [facility] [address] [place] [address] 05/02/15 Wili Rudolph MD [address] [address] Home Care Physician Orthopedics 05/16/15 Wili Rudolph MD [address] [address] Referring Orthopedics 05/16/15 Wili Rudolph MD [address] [address] Home Care Physician Orthopedics 01/04/16 Wili Rudolph MD [address] [address] Referring Orthopedics 01/04/16 [place] [address] [place] [address] Primary Staff Physician Cardiology 07/29/18 Shmuel Ferguson [address] [id number] [facility] 09/08/20 Sabina Jefferson MD [address] [address] Home Care Physician Orthopedics 02/14/21 Mando Giron APRN.EMISSION SPECIALIST [address] [address] Referring Orthopedics 02/14/21 Marie Salvador, PT [address] [place] [address] Health Actuary Post Acute Care 02/15/21 Email Production Consultant Relationship Specialty Start Date End Date Jerry Arnold MD [address] [place], [place] [id number] PCP - General Family Practice 08/30/17 Vignesh Diallo [facility] [address] [place] [address] 05/02/15 Wili Rudolph MD [address] [address] Home Care Physician Orthopedics 05/16/15 Wili Rudolph MD [address] [place] [address] [phone] Referring Orthopedics 05/16/15 Wili Rudolph MD [address] [place] [address] Home Care Physician Orthopedics 01/04/16 Wili Rudolph MD [address] [phone] Referring Orthopedics 01/04/16 Viviane Reyes MD [address] [place] [address] Primary Staff Physician Cardiology 07/29/18 Shmuel Ferguson [address] 882991 [facility]ter Cardiology 09/08/20 Sabina Jefferson MD [address] [phone] Home Care Physician Orthopedics 02/14/21 Mando Giron APRN.EMISSION SPECIALIST [address] [phone] Referring Orthopedics 02/14/21 Marie Salvador, PT [address] [place], [place] [id number] Health Actuary Post Acute Care 02/15/21 Email Production Consultant Relationship Specialty Start Date End Date Jerry Arnold MD [address] [place], [place] [id number] PCP - General Family Practice 08/30/17 Vignesh Diallo [facility] [address] [place] [address] 05/02/15 Wili Rudolph MD [address] [address] Home Care Physician Orthopedics 05/16/15 Wili Rudolph MD [address] [address] Referring Orthopedics 05/16/15 Wili Rudolph MD [address] [address] Home Care Physician Orthopedics 01/04/16 Wili Rudolph MD [address] [address] Referring Orthopedics 01/04/16 [place] [address] [place] [address] Primary Staff Physician Cardiology 07/29/18 Shmuel Ferguson [address] [phone] Rhinestone Setter Cardiology 09/08/20 Sabina Jefferson MD [address] [address] Home Care Physician Orthopedics 02/14/21 Mando Giron APRN.EMISSION SPECIALIST [address] [address] Referring Orthopedics 02/14/21 Marie Salvador, PT [address] [place] [address] Health Actuary Post Acute Care 02/15/21 Email Production Consultant Relationship Specialty Start Date End Date Jerry Arnold MD [address] [place], [place] 697861 PCP - General Family Practice 08/30/17 Vignesh Diallo [facility] [address] [place] [address] 05/02/15 Wili Rudolph MD [address] [address] Home Care Physician Orthopedics 05/16/15 Wili Rudolph MD [address] [address] Referring Orthopedics 05/16/15 Wili Rudolph MD [address] [address] Home Care Physician Orthopedics 01/04/16 Wili Rudolph MD [address] [address] Referring Orthopedics 01/04/16 Viviane Reyes MD [address] [place] [address] Primary Staff Physician Cardiology 07/29/18 Shmuel Ferguson [address] 223301 Rhinestone Setter Cardiology 09/08/20 Sabina Jefferson MD [address] [address] Home Care Physician Orthopedics 02/14/21 Mando Giron APRN.EMISSION SPECIALIST [address] [address] Referring Orthopedics 02/14/21 Marie Salvador, PT [address] [place] [address] Health Actuary Post Acute Care 02/15/21 Email Production Consultant Relationship Specialty Start Date End Date Jerry Arnold MD [address] [place], [place] [id number] PCP - General Family Practice 08/30/17 Vignesh Diallo [facility] [address] [place] [address] 05/02/15 Wili Rudolph MD [address] [address] Home Care Physician Orthopedics 05/16/15 Wili Rudolph MD [address] [address] Referring Orthopedics 05/16/15 Wili Rudolph MD [address] [address] Home Care Physician Orthopedics 01/04/16 Wili Rudolph MD [address] [address] Referring Orthopedics 01/04/16 Viviane Reyes MD [address] [place], [place] 1064395 Primary Staff Physician Cardiology 07/29/18 Shmuel Ferguson [address] [address] Rhinestone Setter Cardiology 09/08/20 Sabina Jefferson MD [address] [address] Home Care Physician Orthopedics 02/14/21 Mando Giron APRN.EMISSION SPECIALIST [address] [address] Referring Orthopedics 02/14/21 Marie Salvador, PT [address] [place] [address] Health Actuary Post Acute Care 02/15/21 Email Production Consultant Relationship Specialty Start Date End Date Jerry Arnold MD [address] [place], [place] 238691 PCP - General Family Practice 08/30/17 Vignesh Diallo [facility] [address] [place] [address] 05/02/15 Wili Rudolph MD [address] [address] Home Care Physician Orthopedics 05/16/15 Wili Rudolph MD [address] [address] Referring Orthopedics 05/16/15 Wili Rudolph MD [address] [address] Home Care Physician Orthopedics 01/04/16 Wili Rudolph MD [address] [address] Referring Orthopedics 01/04/16 Viviane Reyes MD [address] [place] [address] Primary Staff Physician Cardiology 07/29/18 Shmuel Ferguson [address] 980371 Rhinestone Setter Cardiology 09/08/20 Sabina Jefferson MD [address] [address] Home Care Physician Orthopedics 02/14/21 Mando Giron, SENIOR PUBLICATIONS SPECIALIST.EMISSION SPECIALIST [address] [address] Referring Orthopedics 02/14/21 Marie Salvador, PT [address] [place] [address] Health Actuary Post Acute Care 02/15/21 Email Production Consultant Relationship Specialty Start Date End Date Jerry Arnold MD [address] [place] [address] PCP - General Family Practice 08/30/17 Vignesh Diallo [facility] [address] [place] [address] 05/02/15 Wili Rudolph MD [address] [address] Home Care Physician Orthopedics 05/16/15 Wili Rudolph MD [address] [address] Referring Orthopedics 05/16/15 Wili Rudolph MD [address] [address] Home Care Physician Orthopedics 01/04/16 Wili Rudolph MD [address] [address] Referring Orthopedics 01/04/16 Viviane Reyes MD [address] [place] [address] Primary Staff Physician Cardiology 07/29/18 Shmuel Ferguson [address] [address] Rhinestone Setter Cardiology 09/08/20 Sabina Jefferson MD [address] [phone] Home Care Physician Orthopedics 02/14/21 Mando Giron APRN.EMISSION SPECIALIST [address] [phone] Referring Orthopedics 02/14/21 Marie Salvador, PT [address] [place] [address] Health Actuary Post Acute Care 02/15/21 Email Production Consultant Relationship Specialty Start Date End Date Jerry Arnold MD [address] [place], [place] [id number] PCP - General Family Practice 08/30/17 Vignesh Diallo [facility] [address] [place] [address] 05/02/15 Wili Rudolph MD [address] [address] Home Care Physician Orthopedics 05/16/15 Wili Rudolph MD [address] [phone] Referring Orthopedics 05/16/15 Wili Rudolph MD [address] [address] Home Care Physician Orthopedics 01/04/16 Wili Rudolph MD [address] [phone] Referring Orthopedics 01/04/16 Viviane Reyes MD [address] [place], [place] [id number] Primary Staff Physician Cardiology 07/29/18 Shmuel Ferguson [address] [address] Rhinestone Setter Cardiology 09/08/20 Sabina Jefferson MD [address] [place] [address] [phone] Home Care Physician Orthopedics 02/14/21 Mando Giron, PATRICIA.EMISSION SPECIALIST [address] [phone] Referring Orthopedics 02/14/21 Maire Salvador, PT [address] [place] [address] Health Actuary Post Acute Care 02/15/21 Email Production Consultant Relationship Specialty Start Date End Date Jerry Arnold MD [address] [place], [place] 609211 PCP - General Family Practice 08/30/17 Vignesh Diallo, GERARD [facility] [address] [place] [address] 05/02/15 Wili Rudolph MD [address] [phone] Home Care Physician Orthopedics 05/16/15 Wili Rudolph MD [address] [address] Referring Orthopedics 05/16/15 Wili Rudolph MD [address] [phone] Home Care Physician Orthopedics 01/04/16 Wili Rudolph MD [address] [phone] Referring Orthopedics 01/04/16 Viviane Reyes MD [address] [place] [address] Primary Staff Physician Cardiology 07/29/18 Shmuel Ferguson [address] [phone] Rhinestone Setter Cardiology 09/08/20 Sabina Jefferson MD [address] [phone] Home Care Physician Orthopedics 02/14/21 Mando Giron, SENIOR PUBLICATIONS SPECIALIST.EMISSION SPECIALIST [address] [phone] Referring Orthopedics 02/14/21 Marie Salvador, PT [address] [place] [address] Health Actuary Post Acute Care 02/15/21 Email Production Consultant Relationship Specialty Start Date End Date Jerry Arnold MD [address] [place], [place] 976511 PCP - General Family Practice 08/30/17 Vignesh Diallo [facility] [address] [place] [address] 05/02/15 Wili Rudolph MD [address] [phone] Home Care Physician Orthopedics 05/16/15 Wili Rudolph MD [address] [phone] Referring Orthopedics 05/16/15 Wili Rudolph MD [address] [phone] Home Care Physician Orthopedics 01/04/16 Wili Rudolph MD [address] [address] Referring Orthopedics 01/04/16 [place] [address] [place] [address] Primary Staff Physician Cardiology 07/29/18 Shmuel Ferguson [address] [place] [address] [phone] Rhinestone Setter Cardiology 09/08/20 Sabina Jefferson MD [address] [address] Home Care Physician Orthopedics 02/14/21 Mando Giron APRN.EMISSION SPECIALIST [address] [phone] Referring Orthopedics 02/14/21 Marie Salvador, PT [address] [place] [address] Health Actuary Post Acute Care 02/15/21 Email Production Consultant Relationship Specialty Start Date End Date Jerry Arnold MD [address] [place], [place] 890131 PCP - General Family Practice 08/30/17 Vignesh Diallo [facility] [address] [place] [address] 05/02/15 Wili Rudolph MD [address] [address] Home Care Physician Orthopedics 05/16/15 Wili Rudolph MD [address] [address] Referring Orthopedics 05/16/15 Wili Rudolph MD [address] [address] Home Care Physician Orthopedics 01/04/16 Wili Rudolph MD [address] [address] Referring Orthopedics 01/04/16 [place] [address] [place] [address] Primary Staff Physician Cardiology 07/29/18 Shmuel Ferguson [address] [address] Rhinestone Setter Cardiology 09/08/20 Sabina Jefferson MD [address] [place] [address] [phone] Home Care Physician Orthopedics 02/14/21 Mando Giron APRN.EMISSION SPECIALIST [address] [phone] Referring Orthopedics 02/14/21 Marie Salvador, PT [address] [place] [address] Health Actuary Post Acute Care 02/15/21 Email Production Consultant Relationship Specialty Start Date End Date Jerry Arnold MD [address] [place], [place] 674121 PCP - General Family Practice 08/30/17 Vignesh Diallo, GERARD [facility] [address] [place] [address] 05/02/15 Wili Rudolph MD [address] [address] Home Care Physician Orthopedics 05/16/15 Wili Rudolph MD [address] [address] Referring Orthopedics 05/16/15 Wili Rudolph MD [address] [address] Home Care Physician Orthopedics 01/04/16 Wili Rudolph MD [address] [address] Referring Orthopedics 01/04/16 [place] [address] [place] [address] Primary Staff Physician Cardiology 07/29/18 Shmuel Ferguson [address] [phone] Rhinestone Setter Cardiology 09/08/20 Sabina Jefferson MD [address] [phone] Home Care Physician Orthopedics 02/14/21 Mando Giron, SENIOR PUBLICATIONS SPECIALIST.EMISSION SPECIALIST [address] [phone] Referring Orthopedics 02/14/21 Marie Salvador, PT [address] [place] [address] Health Actuary Post Acute Care 02/15/21 Email Production Consultant Relationship Specialty Start Date End Date Jerry Arnold MD [address] [place], [place] [id number] PCP - General Family Practice 08/30/17 Vignesh Diallo [facility] [address] [place] [address] 05/02/15 Wili Rudolph MD [address] [address] Home Care Physician Orthopedics 05/16/15 Wili Rudolph MD [address] [address] Referring Orthopedics 05/16/15 Wili Rudolph MD [address] [address] Home Care Physician Orthopedics 01/04/16 Wili Rudolph MD [address] [address] Referring Orthopedics 01/04/16 Viviane Reyes MD [address] [place] [address] Primary Staff Physician Cardiology 07/29/18 Shmuel Ferguson [address] [address] Rhinestone Setter Cardiology 09/08/20 Sabina Jefferson MD [address] [address] Home Care Physician Orthopedics 02/14/21 Mando Giron APRN.EMISSION SPECIALIST [address] [address] Referring Orthopedics 02/14/21 Marie Salvador, PT [address] [place] [address] Health Actuary Post Acute Care 02/15/21 Email Production Consultant Relationship Specialty Start Date End Date Jerry Arnold MD [address] [place] [address] PCP - General Family Practice 08/30/17 Vignesh Diallo [facility] [address] [place] [address] 05/02/15 Wili Rudolph MD [address] [address] Home Care Physician Orthopedics 05/16/15 Wili Rudolph MD [address] [address] Referring Orthopedics 05/16/15 Wili Rudolph MD [address] [address] Home Care Physician Orthopedics 01/04/16 Wili Rudolph MD [address] [address] Referring Orthopedics 01/04/16 Viviane Reyes MD [address] [place] [address] Primary Staff Physician Cardiology 07/29/18 Shmuel Ferguson [address] 378411 Rhinestone Setter Cardiology 09/08/20 Sabina Jefferson MD [address] [address] Home Care Physician Orthopedics 02/14/21 Mando Giron APRN.EMISSION SPECIALIST [address] [address] Referring Orthopedics 02/14/21 Marie Salvador, PT [address] [place] [address] Health Actuary Post Acute Care 02/15/21 Email Production Consultant Relationship Specialty Start Date End Date Jerry Arnold MD [address] [place] [address] PCP - General Family Practice 08/30/17 Vignesh Diallo [facility] [address] [place] [address] 05/02/15 Wili Rudolph MD [address] [place] [address] Home Care Physician Orthopedics 05/16/15 Wili Rudolph MD [address] [place] [address] Referring Orthopedics 05/16/15 Wili Rudolph MD [address] [place] [address] Home Care Physician Orthopedics 01/04/16 Wili Rudolph MD [address] [address] Referring Orthopedics 01/04/16 Viviane Reyes MD [address] [place] [address] Primary Staff Physician Cardiology 07/29/18 Shmuel Ferguson [address] 446951 Rhinestone Setter Cardiology 09/08/20 Sabina Jefferson MD [address] [address] Home Care Physician Orthopedics 02/14/21 Mando Giron APRN.EMISSION SPECIALIST [address] [address] Referring Orthopedics 02/14/21 Marie Salvador, PT [address] [place] [address] Health Actuary Post Acute Care 02/15/21 Email Production Consultant Relationship Specialty Start Date End Date Jerry Arnold MD [address] [place], [place] [id number] PCP - General Family Practice 08/30/17 Vignesh Diallo [facility] [address] [place] [address] 05/02/15 Wili Rudolph MD [address] [place] [address] Home Care Physician Orthopedics 05/16/15 Wili Rudolph MD [address] [address] Referring Orthopedics 05/16/15 Wili Rudolph MD [address] [address] Home Care Physician Orthopedics 01/04/16 Wili Rudolph MD [address] [address] Referring Orthopedics 01/04/16 Viviane Reyes MD [address] [place] [address] Primary Staff Physician Cardiology 07/29/18 Shmuel Ferguson [address] [phone] Rhinestone Setter Cardiology 09/08/20 Sabina Jefferson MD [address] [phone] Home Care Physician Orthopedics 02/14/21 Mando Giron APRN.EMISSION SPECIALIST [address] [address] Referring Orthopedics 02/14/21 Marie Salvador, PT [address] [place] [address] Health Actuary Post Acute Care 02/15/21 Email Production Consultant Relationship Specialty Start Date End Date Jerry Arnold MD [address] [place], [place] [id number] PCP - General Family Practice 08/30/17 Vignesh Diallo [facility] [address] [place] [address] 05/02/15 Wili Rudolph MD [address] [address] Home Care Physician Orthopedics 05/16/15 Wili Rudolph MD [address] [address] Referring Orthopedics 05/16/15 Wili Rudolph MD [address] [address] Home Care Physician Orthopedics 01/04/16 Wili Rudolph MD [address] [address] Referring Orthopedics 01/04/16 [place] [address] [place] [address] Primary Staff Physician Cardiology 07/29/18 Shmuel Ferguson [address] [phone] Rhinestone Setter Cardiology 09/08/20 Sabina Jefferson MD [address] [address] Home Care Physician Orthopedics 02/14/21 Mando Giron APRN.EMISSION SPECIALIST [address] [address] Referring Orthopedics 02/14/21 Marie Salvador, PT [address] [place] [address] Health Actuary Post Acute Care 02/15/21 Email Production Consultant Relationship Specialty Start Date End Date Jerry Arnold MD [address] [place], [place] 266361 PCP - General Family Practice 08/30/17 Vingesh Diallo [facility] [address] [place] [address] 05/02/15 Wili Rudolph MD [address] [address] Home Care Physician Orthopedics 05/16/15 Wili Rudolph MD [address] [address] Referring Orthopedics 05/16/15 Wili Rudolph MD [address] [address] Home Care Physician Orthopedics 01/04/16 Wili Rudolph MD [address] [address] Referring Orthopedics 01/04/16 Viviane Reyes MD [address] [place] [address] Primary Staff Physician Cardiology 07/29/18 Shmuel Ferguson [facility] [address] [address] Rhinestone Setter Cardiology 09/08/20 Sabina Jefferson MD [address] [address] Home Care Physician Orthopedics 02/14/21 Mando Giron APRN.EMISSION SPECIALIST [address] [address] Referring Orthopedics 02/14/21 Marie Salvador, PT [address] [place], [place] [phone] Health Actuary Post Acute Care 02/15/21 Email Production Consultant Relationship Specialty Start Date End Date Jerry Arnold MD [address] [place], [place] [id number] PCP - General Family Practice 08/30/17 Vignesh Diallo [facility] [address] [place] [address] 05/02/15 Wili Rudolph MD [address] [address] Home Care Physician Orthopedics 05/16/15 Wili Rudolph MD [address] [address] Referring Orthopedics 05/16/15 Wili Rudolph MD [address] [address] Home Care Physician Orthopedics 01/04/16 Wili Rudolph MD [address] [address] Referring Orthopedics 01/04/16 Viviane Reyes MD [address] [place] [address] Primary Staff Physician Cardiology 07/29/18 Shmuel Ferguson [address] [id number] Rhinestone Setter Cardiology 09/08/20 Sabina Jefferson MD [address] [address] Home Care Physician Orthopedics 02/14/21 Mando Giron, SENIOR PUBLICATIONS SPECIALIST.EMISSION SPECIALIST [address] [phone] Referring Orthopedics 02/14/21 Marie Salvador, PT [address] [place] [address] Health Actuary Post Acute Care 02/15/21 Email Production Consultant Relationship Specialty Start Date End Date Jerry Arnold MD [address] [place], [place] 580691 PCP - General Family Medicine 08/30/17 Vignesh Diallo [facility] [address] [place] [address] 05/02/15 Wili Rudolph MD [address] [address] Home Care Provider Orthopedics 05/16/15 Wili Rudolph MD [address] [address] Referring Orthopedics 05/16/15 Wili Rudolph MD [address] [address] Home Care Provider Orthopedics 01/04/16 Wili Rudolph MD [address] [address] Referring Orthopedics 01/04/16 Viviane Reyes MD [address] [place] [address] Primary Staff Physician Cardiology 07/29/18 Shmuel Ferguson Alexander [address] [phone] Rhinestone Setter Cardiology 09/08/20 Sabina Jefferson MD [address] [phone] Home Care Provider Orthopedics 02/14/21 Mando Giron APRN.EMISSION SPECIALIST [address] [phone] Referring Orthopedics 02/14/21 Marie Salvador, PT [address] [place] [address] Health Actuary Post Acute Care 02/15/21 Email Production Consultant Relationship Specialty Start Date End Date Jerry Arnold MD [address] [place], [place] [id number] PCP - General Family Medicine 08/30/17 Vignesh Diallo [facility] [address] [place] [address] 05/02/15 Wili Rudolph MD [address] [place] [address] Home Care Provider Orthopedics 05/16/15 Wili Rudolph MD [address] [place] [address] [phone] Referring Orthopedics 05/16/15 Wili Rudolph MD [address] [place] [address] [phone] Home Care Provider Orthopedics 01/04/16 Wili Rudolph MD [address] [phone] Referring Orthopedics 01/04/16 Viviane Reyes MD [address] [place], [place] [phone] Primary Staff Physician Cardiology 07/29/18 Shmuel Ferguson [address] [phone] Rhinestone Setter Cardiology 09/08/20 Sabina Jefferson MD [address] [place] [address] [phone] Home Care Provider Orthopedics 02/14/21 Mando Giron, SENIOR PUBLICATIONS SPECIALIST.EMISSION SPECIALIST [address] [phone] Referring Orthopedics 02/14/21 Marie Salvador, PT [address] [place] [address] Health Actuary Post Acute Care 02/15/21 Email Production Consultant Relationship Specialty Start Date End Date Jerry Arnold MD [address] [place], [place] [id number] PCP - General Family Medicine 08/30/17 Vignesh Diallo [facility] [address] [place] [address] 05/02/15 Wili Rudolph MD [address] [phone] Home Care Provider Orthopedics 05/16/15 Wili Rudolph MD [address] [phone] Referring Orthopedics 05/16/15 Wili Rudolph MD [address] 02202 Home Care Provider Orthopedics 01/04/16 Wili Rudolph MD [address] [address]014 Referring Orthopedics 01/04/16 [place] [address] [place] [address] [phone] Primary Staff Physician Cardiology 07/29/18 Shmuel Ferguson [address] [phone] Rhinestone Setter Cardiology 09/08/20 Sabina Jefferson MD [address] [place] [address] [phone] Home Care Provider Orthopedics 02/14/21 Mando Giron, SENIOR PUBLICATIONS SPECIALIST.EMISSION SPECIALIST [address] [phone] Referring Orthopedics 02/14/21 Marie Salvador, PT [address] [place] [address] Health Actuary Post Acute Care 02/15/21 Email Production Consultant Relationship Specialty Start Date End Date Jerry Arnold MD [address] [place], [place] [id number] PCP - General Family Medicine 08/30/17 Vignesh Diallo [facility] [address] [place] [address] 05/02/15 Wili Rudolph MD [address] [address] Home Care Provider Orthopedics 05/16/15 Wili Rudolph MD [address] [place] [address] 13522 Referring Orthopedics 05/16/15 Wili Rudolph MD [address] 29219 Home Care Provider Orthopedics 01/04/16 Wili Rudolph MD [address] 32420 Referring Orthopedics 01/04/16 [place] [address] [place] [address] 44195 Primary Staff Physician Cardiology 07/29/18 Shmuel Ferguson [address] [place] [address] [phone] Rhinestone Setter Cardiology 09/08/20 Sabina Jefferson MD [address] [phone] Home Care Provider Orthopedics 02/14/21 Mando Giron APRN.EMISSION SPECIALIST [address] [phone] Referring Orthopedics 02/14/21 Marie Salvador, PT [address] [place] [address] Health Actuary Post Acute Care 02/15/21 Email Production Consultant Relationship Specialty Start Date End Date Jerry Arnold MD [address] [place], [place] [id number] PCP - General Family Medicine 08/30/17 Vignesh Diallo [facility] [address] [place] [address] 05/02/15 Wili Rudolph MD [address] 6[address] Home Care Provider Orthopedics 05/16/15 Wili Rudolph MD [address] 88018 Referring Orthopedics 05/16/15 Wili Rudolph MD [address] 63770 Home Care Provider Orthopedics 01/04/16 Wili Rudolph MD [address] 62514 Referring Orthopedics 01/04/16 [place] [address] [place] [address] 44195 Primary Staff Physician Cardiology 07/29/18 Shmuel Ferguson [address] [place] [address] [phone] Rhinestone Setter Cardiology 09/08/20 Sabina Jefferson MD [address] [place] [address] [phone] Home Care Provider Orthopedics 02/14/21 Mando Giron APRN.EMISSION SPECIALIST [address] [phone] Referring Orthopedics 02/14/21 Marie Salvador, PT [address] [place] [address] Health Actuary Post Acute Care 02/15/21 Email Production Consultant Relationship Specialty Start Date End Date Jerry Arnold MD [address] [place], [place] 294291 PCP - General Family Medicine 08/30/17 Vignesh Diallo [facility] [address] [place] [address] 05/02/15 Wili Rudolph MD [address] 15334 Home Care Provider Orthopedics 05/16/15 Wili Rudolph MD [address] 27920 Referring Orthopedics 05/16/15 Wili Rudolph MD [address] 18004 Home Care Provider Orthopedics 01/04/16 Wili Rudolph MD [address] 69578 Referring Orthopedics 01/04/16 Viviane Reyes MD [address] [place] [address] 44195 Primary Staff Physician Cardiology 07/29/18 Shmuel Ferguson [address] [address] Rhinestone Setter Cardiology 09/08/20 Sabina Jefferson MD [address] [phone] Home Care Provider Orthopedics 02/14/21 Mando Giron, SENIOR PUBLICATIONS SPECIALIST.EMISSION SPECIALIST [address] 80013 Referring Orthopedics 02/14/21 Marie Salvador, PT [address] [place] [address] Health Actuary Post Acute Care 02/15/21 Email Production Consultant Relationship Specialty Start Date End Date Jerry Arnold MD [address] [place], [place] [id number] PCP - General Family Medicine 08/30/17 Vignesh Diallo [facility] [address] [place] [address] 05/02/15 Wili Rudolph MD [address] 48644 Home Care Provider Orthopedics 05/16/15 Wili Rudolph MD [address] [place] [address] 58915 Referring Orthopedics 05/16/15 Wili Rudolph MD [address] [place] [address] 58744 Home Care Provider Orthopedics 01/04/16 Wili Rudolph MD [address] 46094 Referring Orthopedics 01/04/16 Viviane Reyes MD [address] [place] [address] Primary Staff Physician Cardiology 07/29/18 Shmuel Ferguson [address] [address] Rhinestone Setter Cardiology 09/08/20 Sabina Jefferson MD [address] 79157 Home Care Provider Orthopedics 02/14/21 Mando Giron APRN.EMISSION SPECIALIST [address] [phone] Referring Orthopedics 02/14/21 Marie Salvador, PT [address] [place], [place] [phone] Health Actuary Post Acute Care 02/15/21 Email Production Consultant Relationship Specialty Start Date End Date Jerry Arnold MD [address] [place], [place] 543061 PCP - General Family Medicine 08/30/17 Vignesh Diallo [facility] [address] [place] [address] 05/02/15 Wili Rudolph MD [address] 15306 Home Care Provider Orthopedics 05/16/15 Wili Rudolph MD [address] 03543 Referring Orthopedics 05/16/15 Wili Rudolph MD [address] 54999 Home Care Provider Orthopedics 01/04/16 Wili Rudolph MD [address] 82104 Referring Orthopedics 01/04/16 Viviane Reyes MD [address] [place] [phone] Primary Staff Physician Cardiology 07/29/18 Shmuel Ferguson [address] 372411 Rhinestone Setter Cardiology 09/08/20 Sabina Jefferson MD [address] [phone] Home Care Provider Orthopedics 02/14/21 Mando Giron APRN.EMISSION SPECIALIST [address] 79102 Referring Orthopedics 02/14/21 Marie Salvador, PT [address] [place] [address] Health Actuary Post Acute Care 02/15/21 Email Production Consultant Relationship Specialty Start Date End Date Jerry Arnold MD [address] [place] [address] PCP - General Family Medicine 08/30/17 Vignesh Diallo [facility] [address] [place] [address] 05/02/15 Wili Rudolph MD [address] 15200 Home Care Provider Orthopedics 05/16/15 Wili Rudolph MD [address] 30264 Referring Orthopedics 05/16/15 Wili Rudolph MD [address] 52150 Home Care Provider Orthopedics 01/04/16 Wili Rudolph MD [address] 83857 Referring Orthopedics 01/04/16 [place] [address] [place] [address] 44195 Primary Staff Physician Cardiology 07/29/18 Shmuel Ferguson [address] 910041 Rhinestone Setter Cardiology 09/08/20 Sabina Jefferson MD [address] 8[address] Home Care Provider Orthopedics 02/14/21 Mando Giron APRN.EMISSION SPECIALIST [address] 0[address]87 Referring Orthopedics 02/14/21 Marie Salvador, PT [address] [place] [address] Health Actuary Post Acute Care 02/15/21 Email Production Consultant Relationship Specialty Start Date End Date Jerry Arnold MD [address] [place], [place] [id number] PCP - General Family Medicine 08/30/17 Vignesh Diallo, [facility] [address] [place] [address] 05/02/15 Wili Rudolph MD [address] [place] [address] 97449 Home Care Provider Orthopedics 05/16/15 Wili Rudolph MD [address] [address]184 Referring Orthopedics 05/16/15 Wili Rudolph MD [address] 08265 Home Care Provider Orthopedics 01/04/16 Wili Rudolph MD [address] 77281 Referring Orthopedics 01/04/16 Viviane Reeys MD [address] [place] [address] Primary Staff Physician Cardiology 07/29/18 Shmuel Ferguson [address] 623111 Rhinestone Setter Cardiology 09/08/20 Sabina Jefferson MD [address] [phone] Home Care Provider Orthopedics 02/14/21 Mando Giron APRN.EMISSION SPECIALIST [address] [address] Referring Orthopedics 02/14/21 Marie Salvador, PT [address] [place] [address] Health Actuary Post Acute Care 02/15/21 Email Production Consultant Relationship Specialty Start Date End Date Jerry Arnold MD [address] [place], [place] [id number] PCP - General Family Medicine 08/30/17 Vignesh Diallo [facility] [address] [place] [address] 05/02/15 Wili Rudolph MD [address] [address]57 Home Care Provider Orthopedics 05/16/15 Wili Rudolph MD [address] [address]179 Referring Orthopedics 05/16/15 Wili Rudolph MD [address] 32572 Home Care Provider Orthopedics 01/04/16 Wili Rudolph MD [address] [address]39 Referring Orthopedics 01/04/16 Viviane Reyes MD [address] [place] [address] 44195 Primary Staff Physician Cardiology 07/29/18 Shmuel Ferguson [address] [phone] Rhinestone Setter Cardiology 09/08/20 Sabina Jefferson MD [address] 5[address] Home Care Provider Orthopedics 02/14/21 Mando Giron APRN.EMISSION SPECIALIST [address] [address]402 Referring Orthopedics 02/14/21 Marie Salvador, PT [address] [place] [address] Health Actuary Post Acute Care 02/15/21 Email Production Consultant Relationship Specialty Start Date End Date Jerry Arnold MD [address] [place] [address] PCP - General Family Medicine 08/30/17 Vignesh Diallo [facility] [address] [place] [address] 05/02/15 Wili Rudolph MD [address] [address]19 Home Care Provider Orthopedics 05/16/15 Wili Rudolph MD [address] [address]69 Referring Orthopedics 05/16/15 Wili Rudolph MD [address] 29204 Home Care Provider Orthopedics 01/04/16 Wili Rudolph MD [address] [address]79 Referring Orthopedics 01/04/16 Viviane Reyes MD [address] [place] [address] Primary Staff Physician Cardiology 07/29/18 Austen Fergusonmaggie Munoz [address] [address] Rhinestone Setter Cardiology 09/08/20 Sabina Jefferson MD [address] 15519 Home Care Provider Orthopedics 02/14/21 Mando Giron APRN.EMISSION SPECIALIST [address] 94599 Referring Orthopedics 02/14/21 Marie Salvador, PT [address] [place] [address] Health Actuary Post Acute Care 02/15/21 Email Production Consultant Relationship Specialty Start Date End Date Jerry Arnold MD [address] [place], [place] [id number] PCP - General Family Medicine 08/30/17 Vignesh Diallo, [facility] [address] [place] [address] 05/02/15 Wili Rudolph MD [address] 14596 Home Care Provider Orthopedics 05/16/15 Wili Rudolph MD [address] [address]41 Referring Orthopedics 05/16/15 Wili Rudolph MD [address] 01731 Home Care Provider Orthopedics 01/04/16 Wili Rudolph MD [address] 20384 Referring Orthopedics 01/04/16 Viviane Reyes MD [address] [place] [address] Primary Staff Physician Cardiology 07/29/18 Phyllis Shmuel S [address] [address] Rhinestone Setter Cardiology 09/08/20 Sabina Jefferson MD [address] 33280 Home Care Provider Orthopedics 02/14/21 Mando Giron APRN.EMISSION SPECIALIST [address] [phone] Referring Orthopedics 02/14/21 Marie Salvador, PT [address] [place] [address] Health Actuary Post Acute Care 02/15/21 Email Production Consultant Relationship Specialty Start Date End Date Jerry Arnold MD [address] [place] [address] PCP - General Family Medicine 08/30/17 Vignesh Diallo [facility] [address] [place] [address] 05/02/15 Wili Rudolph MD [address] [address]60 Home Care Provider Orthopedics 05/16/15 Wili Rudolph MD [address] [address]00 Referring Orthopedics 05/16/15 Wili Rudolph MD [address] 03509 Home Care Provider Orthopedics 01/04/16 Wili Rudolph MD [address] [phone] Referring Orthopedics 01/04/16 [place] [address] [place] [address] 44195 Primary Staff Physician Cardiology 07/29/18 Phyllis Vivian S [address] [phone] Rhinestone Setter Cardiology 09/08/20 Sabina Jefferson MD [address] [phone] Home Care Provider Orthopedics 02/14/21 Mando Giron APRN.EMISSION SPECIALIST [address] [phone] Referring Orthopedics 02/14/21 Marie Salvador, PT [address] [place] [address] Health Actuary Post Acute Care 02/15/21 Email Production Consultant Relationship Specialty Start Date End Date Jerry Arnold MD [address] [place], [place] [id number] PCP - General Family Medicine 08/30/17 Vignesh Diallo [facility] [address] [place] [address] 05/02/15 Wili Rudolph MD [address] [phone] Home Care Provider Orthopedics 05/16/15 Wili Rudolph MD [address] [phone] Referring Orthopedics 05/16/15 Wili Rudolph MD [address] [place] [address] [phone] Home Care Provider Orthopedics 01/04/16 Wili Rudolph MD [address] [phone] Referring Orthopedics 01/04/16 Viviane Reyes MD [address] [place] [address] Primary Staff Physician Cardiology 07/29/18 Shmuel Ferguson [address] [phone] Rhinestone Setter Cardiology 09/08/20 Sabina Jefferson MD [address] [phone] Home Care Provider Orthopedics 02/14/21 Mando Giron APRN.EMISSION SPECIALIST [address] [phone] Referring Orthopedics 02/14/21 Marie Salvador, PT [address] [place] [address] Health Actuary Post Acute Care 02/15/21 Email Production Consultant Relationship Specialty Start Date End Date Jerry Arnold MD [address] [place] [address] PCP - General Family Medicine 08/30/17 Vignesh Diallo [facility] [address] [place] [address] 05/02/15 Wili Rudolph MD [address] [place] [address] 12483 Home Care Provider Orthopedics 05/16/15 Wili Rudolph MD [address] [place] [address] 53530 Referring Orthopedics 05/16/15 Wili Rudolph MD [address] [place] [address] [phone] Home Care Provider Orthopedics 01/04/16 Wili Rudolph MD [address] [place] [address] 84627 Referring Orthopedics 01/04/16 Viviane Reyes MD [address] [place] [address] [phone] Primary Staff Physician Cardiology 07/29/18 Shmuel Ferguson [address] [place] [address] 534441 Rhinestone Setter Cardiology 09/08/20 Sabina Jefferson MD [address] [place] [address] [phone] Home Care Provider Orthopedics 02/14/21 Mando Giron APRN.CNP [address] [place] [address] 99805 Referring Orthopedics 02/14/21 Marie Salvador, PT [address] [place], [place] [phone] Health Actuary Post Acute Care 02/15/21 Email Production Consultant Relationship Specialty Start Date End Date Jerry Arnold MD [address] [place] [address] 95564 PCP - General Family Medicine 08/30/17 Vignesh Diallo, [facility] [address] [place] [address] 05/02/15 Wili Rudolph MD [address] [place] [address] 34404 Home Care Provider Orthopedics 05/16/15 Wili Rudolph MD [address] [place] [address] 80603 Referring Orthopedics 05/16/15 Wili Rudolph MD [address] [place] [address] 73052 Home Care Provider Orthopedics 01/04/16 Wili Rudolph MD [address] [place] [address] 08722 Referring Orthopedics 01/04/16 Viviane Reyes MD [address] [place], [place] 0505395 Primary Staff Physician Cardiology 07/29/18 Shmuel Ferguson [address] [place] [address] [phone] Rhinestone Setter Cardiology 09/08/20 Sabina Jefferson MD [address] [place] [address] 98064 Home Care Provider Orthopedics 02/14/21 Mando Giron APRN.EMISSION SPECIALIST [address] [place] [address] 18040 Referring Orthopedics 02/14/21 Marie Salvador, PT [address] [place] [address] Health Actuary Post Acute Care 02/15/21 Email Production Consultant Relationship Specialty Start Date End Date Jerry Arnold MD [address] [place] [address] PCP - General Family Medicine 08/30/17 Vignesh Diallo [facility] [address] [place] [address] 05/02/15 Wili Rudolph MD [address] [place] [address] 44561 Home Care Provider Orthopedics 05/16/15 Wili Rudolph MD [address] [place] [address] 35411 Referring Orthopedics 05/16/15 Wili Rudolph MD [address] [place] [address] 88530 Home Care Provider Orthopedics 01/04/16 Wili Rduolph MD [address] [place] [address] 40173 Referring Orthopedics 01/04/16 Viviane Reyes MD [address] [place] [address] Primary Staff Physician Cardiology 07/29/18 Shmuel Ferguson [address] [place] [address] 02794 Rhinestone Setter Cardiology 09/08/20 Sabina Jefferson MD [address] [address] Home Care Provider Orthopedics 02/14/21 Mando Giron APRN.EMISSION SPECIALIST [address] [place] [address] 80100 Referring Orthopedics 02/14/21 Marie Salvador, PT [address] [place] [address] Health Actuary Post Acute Care 02/15/21 Email Production Consultant Relationship Specialty Start Date End Date Jerry Arnold MD [address] [place] [address] 90527 PCP - General Family Medicine 08/30/17 Vignesh Diallo [facility] [address] [place] [address] 05/02/15 Wili Rudolph MD [address] [place] [address] 16600 Home Care Provider Orthopedics 05/16/15 Wili Rudolph MD [address] [place] [address] 35247 Referring Orthopedics 05/16/15 Wili Rudolph MD [address] [place] [address] 72574 Home Care Provider Orthopedics 01/04/16 Wili Rudolph MD [address] [place] [address] 92943 Referring Orthopedics 01/04/16 Viviane Reyes MD [address] [place] [address] 05413 Primary Staff Physician Cardiology 07/29/18 Shmuel Ferguson [address] [address] Rhinestone Setter Cardiology 09/08/20 Sabina Jefferson MD [address] [place] [address] 46062 Home Care Provider Orthopedics 02/14/21 Mando Giron APRN.EMISSION SPECIALIST [address] [place] [address] 53165 Referring Orthopedics 02/14/21 Marie Salvador, PT [address] [place] [address] Health Actuary Post Acute Care 02/15/21 Email Production Consultant Relationship Specialty Start Date End Date Jerry Arnold MD [address] [place] [address] PCP - General Family Medicine 08/30/17 Vignesh Diallo [facility] [address] [place] [address] 05/02/15 Wlii Rudolph MD [address] [place] [address] 70955 Home Care Provider Orthopedics 05/16/15 Wili Rudolph MD [address] [place] [address] 40046 Referring Orthopedics 05/16/15 Wili Rudolph MD [address] [place] [address] 74406 Home Care Provider Orthopedics 01/04/16 Wili Rudolph MD [address] [place] [address] 64267 Referring Orthopedics 01/04/16 Viviane Reyes MD [address] [place], [place] 0505395 Primary Staff Physician Cardiology 07/29/18 Shmuel Ferguson [address] 110691 Rhinestone Setter Cardiology 09/08/20 Sabina Jefferson MD [address] [place] [address] 59977 Home Care Provider Orthopedics 02/14/21 Mando Giron APRN.EMISSION SPECIALIST [address] [place] [address] 24669 Referring Orthopedics 02/14/21 Marie Salvador, PT [address] [place], [place] [phone] Health Actuary Post Acute Care 02/15/21 Email Production Consultant Relationship Specialty Start Date End Date Jerry Arnold MD [address] [place] [address] PCP - General Family Medicine 08/30/17 Vignesh Diallo [facility] [address] [place] [address] 05/02/15 Wili Rudolph MD [address] [place] [address] 65960 Home Care Provider Orthopedics 05/16/15 iWli uRdolph MD [address] [place] [address] 40610 Referring Orthopedics 05/16/15 Wili Rudolph MD [address] [place] [address] 10502 Home Care Provider Orthopedics 01/04/16 Wili Rudolph MD [address] [place] [address] 94388 Referring Orthopedics 01/04/16 Viviane Reyes MD [address] [place] [address] 42897 Primary Staff Physician Cardiology 07/29/18 Shmuel Ferguson [address] [place] [address] [phone] Rhinestone Setter Cardiology 09/08/20 Sabina Jefferson MD [address] [place] [address] [phone] Home Care Provider Orthopedics 02/14/21 Mando Giron APRN.CNP [address] [place] [address] 53036 Referring Orthopedics 02/14/21 Marie Salvador, PT [address] [place], [place] [phone] Health Actuary Post Acute Care 02/15/21 Email Production Consultant Relationship Specialty Start Date End Date Jerry Arnold MD [address] [place] [address] 90527 PCP - General Family Medicine 08/30/17 Vignesh Diallo [facility] [address] [place] [address] 05/02/15 Wili Rudolph MD [address] [place] [address] 21567 Home Care Provider Orthopedics 05/16/15 Wili Rudolph MD [address] [place] [address] 40441 Referring Orthopedics 05/16/15 Wili Rudolph MD [address] [place] [address] 24682 Home Care Provider Orthopedics 01/04/16 Wili Rudolph MD [address] [place] [address] 85467 Referring Orthopedics 01/04/16 Viviane Reyes MD [address] [place], [place] 0505[address] Primary Staff Physician Cardiology 07/29/18 Shmuel Ferguson MD [address] [place] [address] 81111 Rhinestone Setter Cardiology 09/08/20 Sabina Jefferson MD [address] [place] [address] 98295 Home Care Provider Orthopedics 02/14/21 Mando Giron APRN.EMISSION SPECIALIST [address] [place] [address] 98959 Referring Orthopedics 02/14/21 Marie Salvador, PT [address] [place] [address] Health Actuary Post Acute Care 02/15/21 Email Production Consultant Relationship Specialty Start Date End Date Jerry Arnold MD [address] [place] [address] 14841 PCP - General Family Medicine 08/30/17 Vignesh Diallo [facility] [address] [place] [address] 05/02/15 Wili Rudolph MD [address] [place] [address] 70410 Home Care Provider Orthopedics 05/16/15 Wili Rudolph MD [address] [place] [address] 02116 Referring Orthopedics 05/16/15 Wili Rudolph MD [address] [place] [address] 77030 Home Care Provider Orthopedics 01/04/16 Wili Rudolph MD [address] [place] [address] 10058 Referring Orthopedics 01/04/16 Viviane Reyes MD [address] [place] [address] 11044 Primary Staff Physician Cardiology 07/29/18 Shmuel Ferguson MD [facility] [address] [address] Rhinestone Setter Cardiology 09/08/20 Sabina Jefferson MD [address] 59414 Home Care Provider Orthopedics 02/14/21 Mando Giron APRN.EMISSION SPECIALIST [address] [place] [address] 68713 Referring Orthopedics 02/14/21 Marie Salvador, PT [address] [place] [address] Health Actuary Post Acute Care 02/15/21 Email Production Consultant Relationship Specialty Start Date End Date Jerry Arnold MD [address] [place] [address] PCP - General Family Medicine 08/30/17 Vignesh Diallo, [facility] [address] [place] [address] 05/02/15 Wili Rudolph MD [address] [place] [address] 84508 Home Care Provider Orthopedics 05/16/15 Wili Rudolph MD [address] [place] [address] 63810 Referring Orthopedics 05/16/15 Wili Rudolph MD [address] [place] [address] 11389 Home Care Provider Orthopedics 01/04/16 Wili Rudolph MD [address] [place] [address] 44910 Referring Orthopedics 01/04/16 Viviane Reyse MD [address] [place], [place] 0505395 Primary Staff Physician Cardiology 07/29/18 Shmuel Ferguson MD [address] [phone] Rhinestone Setter Cardiology 09/08/20 Sabina Jefferson MD [address] [place] [address] [phone] Home Care Provider Orthopedics 02/14/21 Mando Giron APRN.EMISSION SPECIALIST [address] [place] [address] [phone] Referring Orthopedics 02/14/21 Marie Salvador, PT [address] [place], [place] [phone] Health Actuary Post Acute Care 02/15/21 Email Production Consultant Relationship Specialty Start Date End Date Jerry Arnold MD [address] [place], [place] 968431 PCP - General Family Medicine 08/30/17 Vignesh Diallo [facility] [address] [place] [address] 05/02/15 Wili Rudolph MD [address] [place] [address] [phone] Home Care Provider Orthopedics 05/16/15 Wili Rudolph MD [address] [address] Referring Orthopedics 05/16/15 Wili Rudolph MD [address] [place] [address] 02711 Home Care Provider Orthopedics 01/04/16 Wili Rudolph MD [address] [place] [address] 36324 Referring Orthopedics 01/04/16 Viviane Reyes MD [address] [place], [place] [address] Primary Staff Physician Cardiology 07/29/18 Shmuel Ferguson MD [address] [place] [address] 22230 Rhinestone Setter Cardiology 09/08/20 Sabina Jefferson MD [address] [place] [address] 17819 Home Care Provider Orthopedics 02/14/21 Mando Giron APRN.EMISSION SPECIALIST [address] [place] [address] 77252 Referring Orthopedics 02/14/21 Email Production Consultant Relationship Specialty Start Date End Date Jerry Arnold MD [address] [place] [address] 93262 PCP - General Family Medicine 08/30/17 Vignesh Diallo [facility] [address] [place] [address] 05/02/15 Wili Rudolph MD [address] [place] [address] 40794 Home Care Provider Orthopedics 05/16/15 Wili Rudolph MD [address] [place] [address] 53342 Referring Orthopedics 05/16/15 Wili Rudolph MD [address] [place] [address] 02642 Home Care Provider Orthopedics 01/04/16 Wili Rudolph MD [address] [place] [address] 16059 Referring Orthopedics 01/04/16 Viviane Reyes MD [address] [place], [place] [address] Primary Staff Physician Cardiology 07/29/18 Shmuel Ferguson MD [address] [place] [address] [phone] Rhinestone Setter Cardiology 09/08/20 Sabina Jefferson MD [address] [place] [address] [phone] Home Care Provider Orthopedics 02/14/21 Mando Giron APRN.EMISSION SPECIALIST [address] [place] [address] 58781 Referring Orthopedics 02/14/21 Email Production Consultant Relationship Specialty Start Date End Date Jerry Arnold MD [facility] [place], [place] 954561 PCP - General Family Medicine 08/30/17 Vignesh Diallo, [facility] [address] [place] [address] 05/02/15 Wili Rudolph MD [address] [place] [address] 11758 Home Care Provider Orthopedics 05/16/15 Wili Rudolph MD [address] [place] [address] 10518 Referring Orthopedics 05/16/15 Wili Rudolph MD [address] [place] [address] 83507 Home Care Provider Orthopedics 01/04/16 Wili Rudolph MD [address] [place] [address] 12733 Referring Orthopedics 01/04/16 Viviane Reyes MD [address] [place], [place] [address] Primary Staff Physician Cardiology 07/29/18 Shmuel Ferguson MD [address] [place] [address] 04972 Rhinestone Setter Cardiology 09/08/20 Sabina Jefferson MD [address] [place] [address] 93603 Home Care Provider Orthopedics 02/14/21 Mando Giron APRN.EMISSION SPECIALIST [address] [place] [address] 61666 Referring Orthopedics 02/14/21 Marie Salvador, PT [address] [place] [address] Health Actuary Post Acute Care 02/15/21 03/04/23 Email Production Consultant Relationship Specialty Start Date End Date Jerry Arnold MD [address]40 [place] [address] PCP - General Family Medicine 08/30/17 Vignesh Diallo, [facility] [address] [place] [address] 05/02/15 Wili Rudolph MD [address] [address] Home Care Provider Orthopedics 05/16/15 Wili Rudolph MD [address] 18662 Referring Orthopedics 05/16/15 Wili Rudolph MD [address] 50470 Home Care Provider Orthopedics 01/04/16 Wili Rudolph MD [address] 33710 Referring Orthopedics 01/04/16 Viviane Reyes MD [address] [place], [place] [phone] Primary Staff Physician Cardiology 07/29/18 Shmuel Ferguson MD [address] [address] Rhinestone Setter Cardiology 09/08/20 Sabina Jefferson MD [address] [place] [address] 08067 Home Care Provider Orthopedics 02/14/21 Mando Giron APRN.CNP [address] [place] [address] 61255 Referring Orthopedics 02/14/21 Email Production Consultant Relationship Specialty Start Date End Date Jerry Arnold MD [address] [place] [address] [id number] PCP - General Family Medicine 08/30/17 Vignesh Diallo [facility] [address] [place] [address] 05/02/15 Wili Rudolph MD [address] [place] [address] 55994 Home Care Provider Orthopedics 05/16/15 Wili Rudolph MD [address] [place] [address] 44753 Referring Orthopedics 05/16/15 Wili Rudolph MD [address] [place] [address] 30047 Home Care Provider Orthopedics 01/04/16 Wili Rudolph MD [address] [place] [address] 93957 Referring Orthopedics 01/04/16 [place] [address] [place] [address] [phone] Primary Staff Physician Cardiology 07/29/18 Shmuel Ferguson MD [address] [address] Rhinestone Setter Cardiology 09/08/20 Sabina Jefferson MD [address] [place] [address] 46802 Home Care Provider Orthopedics 02/14/21 Mando Giron APRN.EMISSION SPECIALIST [address] [place] [address] 93462 Referring Orthopedics 02/14/21 Email Production Consultant Relationship Specialty Start Date End Date Jerry Arnold MD [address] [place] [address] PCP - General Family Medicine 08/30/17 Vignesh Diallo, [facility] [address] [place] [address] 05/02/15 Wili Rudolph MD [address] [place] [address] 75948 Home Care Provider Orthopedics 05/16/15 Wili Rudolph MD [address] [place] [address] 54822 Referring Orthopedics 05/16/15 Wili Rudolph MD [address] [place] [address] 45994 Home Care Provider Orthopedics 01/04/16 Wili Rudolph MD [address] [place] [address] 56647 Referring Orthopedics 01/04/16 Viviane Reyes MD [address] [place], [place] [address] Primary Staff Physician Cardiology 07/29/18 Shmuel Ferguson MD [address] [address] Rhinestone Setter Cardiology 09/08/20 Sabina Jefferson MD [address] [place] [address] 87723 Home Care Provider Orthopedics 02/14/21 Mando Giron APRN.EMISSION SPECIALIST [address] [place] [address] 57977 Referring Orthopedics 02/14/21 Email Production Consultant Relationship Specialty Start Date End Date Jerry Arnold MD [address] [place] [address] [phone] PCP - General Family Medicine 08/30/17 Vignesh Diallo [facility] [address] [place] [address] Specialty Resident Care Technician Orthopedics 05/02/15 08/31/23 Wili Rudolph MD [address] [place] [address] 08644 Home Care Provider Orthopedics 05/16/15 Wili Rudolph MD [address] [place] [address] 65071 Referring Orthopedics 05/16/15 Wili Rudolph MD [address] [place] [address] 09679 Home Care Provider Orthopedics 01/04/16 Wili Rudolph MD [address] [place] [address] 22880 Referring Orthopedics 01/04/16 Viviane Reyes MD [address] [place], [place] 0[address] Primary Staff Physician Cardiology 07/29/18 Shmuel Ferguson MD [address] [place] [address] 04562 Rhinestone Setter Cardiology 09/08/20 Sabina Jefferson MD [address] [place] [address] 57297 Home Care Provider Orthopedics 02/14/21 Mando Giron APRN.EMISSION SPECIALIST [address] [place] [address] 53314 Referring Orthopedics 02/14/21 Email Production Consultant Relationship Specialty Start Date End Date Jerry Arnold MD [address] [place] [address] 97962 PCP - General Family Medicine 08/30/17 Vignesh Diallo [facility] [address] [place] [address] Specialty Resident Care Technician Orthopedics 05/02/15 08/31/23 Wili Rudolph MD [address] [place] [address] 54488 Home Care Provider Orthopedics 05/16/15 Wili Rudolph MD [address] [place] [address] 02527 Referring Orthopedics 05/16/15 Wili Rudolph MD [address] [place] [address] 07973 Home Care Provider Orthopedics 01/04/16 Wili Rudolph MD [address] [place] [address] 12348 Referring Orthopedics 01/04/16 Viviane Reyes MD [address] [place], [place] [address] Primary Staff Physician Cardiology 07/29/18 Shmuel Ferguson MD [address] [place] [address] 39283 Rhinestone Setter Cardiology 09/08/20 Sabina Jefferson MD [address] [place] [address] 86868 Home Care Provider Orthopedics 02/14/21 Mando Giron APRN.EMISSION SPECIALIST [address] [place] [address] 52149 Referring Orthopedics 02/14/21 Email Production Consultant Relationship Specialty Start Date End Date Jerry Arnold MD [address] [place] [address] [phone] PCP - General Family Medicine 08/30/17 Vignesh Diallo, [facility] [address] [place] [address] Specialty Resident Care Technician Orthopedics 05/02/15 08/31/23 Wili Rudolph MD [address] [place] [address] 05451 Home Care Provider Orthopedics 05/16/15 Wili Rudolph MD [address] [place] [address] 19778 Referring Orthopedics 05/16/15 Wili Rudolph MD [address] [place] [address] 25421 Home Care Provider Orthopedics 01/04/16 Wili Rudolph MD [address] [place] [address] 83491 Referring Orthopedics 01/04/16 Viviane Reyes MD [address] [place], [place] [address] Primary Staff Physician Cardiology 07/29/18 Shmuel Ferguson MD [address] [place] [address] 39805 Rhinestone Setter Cardiology 09/08/20 Sabina Jefferson MD [address] [place] [address] 60924 Home Care Provider Orthopedics 02/14/21 Mando Giron APRN.CNP [address] 6[address] Referring Orthopedics 02/14/21 Email Production Consultant Relationship Specialty Start Date End Date Jerry Arnold MD [address] [place] [address] PCP - General Family Medicine 08/30/17 Vignesh Diallo [facility] [address] [place] [address] Specialty Resident Care Technician Orthopedics 05/02/15 08/31/23 Wili Rudolph MD [address] [place] [address] 79636 Home Care Provider Orthopedics 05/16/15 Wili Rudolph MD [address] [place] [address] 37969 Referring Orthopedics 05/16/15 Wili Rudolph MD [address] [place] [address] 59249 Home Care Provider Orthopedics 01/04/16 Wili Rudolph MD [address] [place] [address] 19104 Referring Orthopedics 01/04/16 Viviane Reyes MD [address] [place] [address] 44195 Primary Staff Physician Cardiology 07/29/18 Shmuel Ferguson MD [address] 8[address]27 Rhinestone Setter Cardiology 09/08/20 Sabina Jefferson MD [address] 0[address] Home Care Provider Orthopedics 02/14/21 Mando Giron APRN.EMISSION SPECIALIST [address] [place] [address] 28512 Referring Orthopedics 02/14/21 Email Production Consultant Relationship Specialty Start Date End Date Jerry Arnold MD [address] [place] [address] PCP - General Family Medicine 08/30/17 Vignesh Diallo, [facility] [address] [place] [address] Specialty Resident Care Technician Orthopedics 05/02/15 08/31/23 Wili Rudolph MD [address] [place] [address] 27223 Home Care Provider Orthopedics 05/16/15 Wili Rudolph MD [address] [place] [address] 71318 Referring Orthopedics 05/16/15 Wili Rudolph MD [address] [place] [address] 46835 Home Care Provider Orthopedics 01/04/16 Wili Rudolph MD [address] [place] [address] 94488 Referring Orthopedics 01/04/16 Viviane Reyes MD [address] [place] [address] [phone] Primary Staff Physician Cardiology 07/29/18 Shmuel Ferguson MD [address] [place] [address] 78637 Rhinestone Setter Cardiology 09/08/20 Sabina Jefferson MD [address] [place] [address] 48474 Home Care Provider Orthopedics 02/14/21 Mando Giron APRN.EMISSION SPECIALIST [address] [place] [address] 52206 Referring Orthopedics 02/14/21 Email Production Consultant Relationship Specialty Start Date End Date Jerry Arnold MD [address] [place] [address] PCP - General Family Medicine 08/30/17 Vignesh Diallo [facility] [address] [place] [address] Specialty Resident Care Technician Orthopedics 05/02/15 08/31/23 Wili Rudolph MD [address] [place] [address] 65886 Home Care Provider Orthopedics 05/16/15 Wili Rudolph MD [address] [place] [address] 60061 Referring Orthopedics 05/16/15 Wili Rudolph MD [address] [place] [address] 58228 Home Care Provider Orthopedics 01/04/16 Wili Rudolph MD [address] [place] [address] 50467 Referring Orthopedics 01/04/16 Viviane Reyes MD [address] [place] [address] 95207 Primary Staff Physician Cardiology 07/29/18 [place] [address] [place] [address] 05723 Rhinestone Setter Cardiology 09/08/20 Sabina Jefferson MD [address] [place] [address] 37152 Home Care Provider Orthopedics 02/14/21 Mando Giron APRN.EMISSION SPECIALIST [address] [place] [address] 24674 Referring Orthopedics 02/14/21 Email Production Consultant Relationship Specialty Start Date End Date Jerry Arnold MD [address] [place] [address] 91439 PCP - General Family Medicine 08/30/17 Vignesh Diallo [facility] [address] [place] [address] Specialty Resident Care Technician Orthopedics 05/02/15 08/31/23 Wili Rudolph MD [address] [place] [address] 85025 Home Care Provider Orthopedics 05/16/15 Wili Rudolph MD [address] [place] [address] 59134 Referring Orthopedics 05/16/15 Wili Rudolph MD [address] [place] [address] 89664 Home Care Provider Orthopedics 01/04/16 Wili Rudolph MD [address] [place] [address] 09953 Referring Orthopedics 01/04/16 Viviane Reyes MD [address] [place] [address] [phone] Primary Staff Physician Cardiology 07/29/18 Shmuel Ferguson MD [address] [place] [address] [phone] Rhinestone Setter Cardiology 09/08/20 Sabina Jefferson MD [address] [place] [address] 81224 Home Care Provider Orthopedics 07/23/23 Mando Giron APRN.EMISSION SPECIALIST [address] [place] [address] 22885 Referring Orthopedics 07/23/23 Email Production Consultant Relationship Specialty Start Date End Date Jerry Arnold MD [address] [place] [address] 28182 PCP - General Family Medicine 08/30/17 Vignesh Diallo [facility] [address] [place] [address] Specialty Resident Care Technician Orthopedics 05/02/15 08/31/23 Wili Rudolph MD [address] [place] [address] 74281 Home Care Provider Orthopedics 05/16/15 Wili Rudolph MD [address] [place] [address] 96164 Referring Orthopedics 05/16/15 Wili Rudolph MD [address] [place] [address] 01865 Home Care Provider Orthopedics 01/04/16 Wili Rudolph MD [address] [place] [address] 16713 Referring Orthopedics 01/04/16 Viviane Reyes MD [address] [place], [place] 0[address] Primary Staff Physician Cardiology 07/29/18 Shmuel Ferguson MD [address] [place] [address] 17448 Rhinestone Setter Cardiology 09/08/20 Sabina Jefferson MD [address] [place] [address] 72129 Home Care Provider Orthopedics 07/23/23 Mando Giron APRN.CNP [address] [place] [address] 22911 Referring Orthopedics 07/23/23 Email Production Consultant Relationship Specialty Start Date End Date Jerry Arnold MD [address] [place] [address] 94615 PCP - General Family Medicine 08/30/17 Vignesh Diallo [facility] [address] [place] [address] Specialty Resident Care Technician Orthopedics 05/02/15 08/31/23 Wili Rudolph MD [address] [place] [address] 69731 Home Care Provider Orthopedics 05/16/15 Wili Rudolph MD [address] [place] [address] 72852 Referring Orthopedics 05/16/15 Wili Rudolph MD [address] [place] [address] 71302 Home Care Provider Orthopedics 01/04/16 Wili Rudolph MD [address] [place] [address] 19449 Referring Orthopedics 01/04/16 Viviane Reyes MD [address] [place], [place] 0[address] Primary Staff Physician Cardiology 07/29/18 Shmuel Ferguson MD [address] [place] [address] 48334 Rhinestone Setter Cardiology 09/08/20 Sabina Jefferson MD [address] [place] [address] 26973 Home Care Provider Orthopedics 07/23/23 Mando Giron APRN.EMISSION SPECIALIST [address] [place] [address] 82100 Referring Orthopedics 07/23/23 Marie Salvador, PT [address] [place] [address] Health Actuary Post Acute Care 07/24/23 Email Production Consultant Relationship Specialty Start Date End Date Jerry Arnold MD [address] [place] [address] PCP - General Family Medicine 08/30/17 Vignesh Diallo [facility] [address] [place] [address] Specialty Resident Care Technician Orthopedics 05/02/15 08/31/23 Wili Rudolph MD [address] [place] [address] 09039 Home Care Provider Orthopedics 05/16/15 Wili Rudolph MD [address] [place] [address] 86573 Referring Orthopedics 05/16/15 Wili Rudolph MD [address] [place] [address] 93886 Home Care Provider Orthopedics 01/04/16 Wili Rudolph MD [address] [place] [address] 21443 Referring Orthopedics 01/04/16 [place] [address] [place] [address] 44195 Primary Staff Physician Cardiology 07/29/18 [place] [address] [place] [address] 88560 Rhinestone Setter Cardiology 09/08/20 Sabina Jefferson MD [address] [place] [address] 79659 Home Care Provider Orthopedics 07/23/23 Mando Giron APRN.CNP [address] [place] [address] 77326 Referring Orthopedics 07/23/23 Marie Salvador, PT [address] [place] [address] Health Actuary Post Acute Care 07/24/23 Email Production Consultant Relationship Specialty Start Date End Date Jerry Arnold MD [facility] [place] [address] PCP - General Family Medicine 08/30/17 Vignesh Diallo [facility] [address] [place] [address] Specialty Resident Care Technician Orthopedics 05/02/15 08/31/23 Wili Rudolph MD [address] [place] [address] 17244 Home Care Provider Orthopedics 05/16/15 Wili Rudolph MD [address] [place] [address] 89533 Referring Orthopedics 05/16/15 Wili Rudolph MD [address] [place] [address] 10667 Home Care Provider Orthopedics 01/04/16 Wili Rudolph MD [address] [place] [address] 48963 Referring Orthopedics 01/04/16 Viviane Reyes MD [address] [place] [address] 44195 Primary Staff Physician Cardiology 07/29/18 Shmuel Ferguson MD [address] [address] Rhinestone Setter Cardiology 09/08/20 Sabina Jefferson MD [address] [place] [address] 38619 Home Care Provider Orthopedics 07/23/23 Mando Giron APRN.EMISSION SPECIALIST [address] [place] [address] 52443 Referring Orthopedics 07/23/23 Marie Salvador, PT [address] [place] [address] Health Actuary Post Acute Care 07/24/23 Email Production Consultant Relationship Specialty Start Date End Date Jerry Arnold MD [address] [place] [address] PCP - General Family Medicine 08/30/17 Vignesh Diallo [facility] [address] [place] [address] Specialty Resident Care Technician Orthopedics 05/02/15 08/31/23 Wili Rudolph MD [address] [place] [address] 46836 Home Care Provider Orthopedics 05/16/15 Wili Rudolph MD [address] [place] [address] 83942 Referring Orthopedics 05/16/15 Wili Rudolph MD [address] [place] [address] 02068 Home Care Provider Orthopedics 01/04/16 Wili Rudolph MD [address] [place] [address] 57046 Referring Orthopedics 01/04/16 Viviane Reyes MD [address] [place], [place] 0[address] Primary Staff Physician Cardiology 07/29/18 Shmuel Ferguson MD [address] [place] [address] 082141 Rhinestone Setter Cardiology 09/08/20 Sabina Jefferson MD [address] [place] [address] [phone] Home Care Provider Orthopedics 07/23/23 Mando Giron APRN.EMISSION SPECIALIST [address] [place] [address] 15153 Referring Orthopedics 07/23/23 Marie Salvador, PT [address] [place] [address] Health Actuary Post Acute Care 07/24/23 Email Production Consultant Relationship Specialty Start Date End Date Jerry Arnold MD [address] [place] [address] PCP - General Family Medicine 08/30/17 Vignesh Diallo [facility] [address] [place] [address] Specialty Resident Care Technician Orthopedics 05/02/15 08/31/23 Wili Rudolph MD [address] [place] [address] 81136 Home Care Provider Orthopedics 05/16/15 Wili Rudolph MD [address] [place] [address] 94463 Referring Orthopedics 05/16/15 Wili Rudolph MD [address] [place] [address] 98830 Home Care Provider Orthopedics 01/04/16 Wili Rudolph MD [address] [place] [address] 42255 Referring Orthopedics 01/04/16 Viviane Reyes MD [address] [place], [place] 0[address] Primary Staff Physician Cardiology 07/29/18 Shmuel Ferguson MD [address] [place] [address] 15507 Rhinestone Setter Cardiology 09/08/20 Sabina Jefferson MD [address] [place] [address] [phone] Home Care Provider Orthopedics 07/23/23 Mando Giron APRN.EMISSION SPECIALIST [address] [place] [address] [phone] Referring Orthopedics 07/23/23 Marie Salvador, PT [address] [place] [address] Health Actuary Post Acute Care 07/24/23 Email Production Consultant Relationship Specialty Start Date End Date Jerry Arnold MD [address] [place] [address] PCP - General Family Medicine 08/30/17 Vignesh Diallo [facility] [address] [place] [address] Specialty Resident Care Technician Orthopedics 05/02/15 08/31/23 Wili Rudolph MD [address] [place] [address] 75525 Home Care Provider Orthopedics 05/16/15 Wili Rudolph MD [address] [place] [address] 28185 Referring Orthopedics 05/16/15 Wili Rudolph MD [address] [place] [address] 86890 Home Care Provider Orthopedics 01/04/16 Wili Rudolph MD [address] [place] [address] 71650 Referring Orthopedics 01/04/16 Viviane Reyes MD [address] [place] [address] Primary Staff Physician Cardiology 07/29/18 Shmuel Ferguson MD [address] [address] Rhinestone Setter Cardiology 09/08/20 Sabina Jefferson MD [address] 95196 Home Care Provider Orthopedics 07/23/23 Mando Giron APRN.EMISSION SPECIALIST [address] 20453 Referring Orthopedics 07/23/23 Marie Salvador, PT [address] [place] [address] Health Actuary Post Acute Care 07/24/23 Email Production Consultant Relationship Specialty Start Date End Date Jerry Arnold MD [address] [place] [address] PCP - General Family Medicine 08/30/17 Vignesh Diallo [facility] [address] [place] [address] Specialty Resident Care Technician Orthopedics 05/02/15 08/31/23 Wili Rudolph MD [address] [place] [address] 55802 Home Care Provider Orthopedics 05/16/15 Wili Rudolph MD [address] [place] [address] 05155 Referring Orthopedics 05/16/15 Wili Rudolph MD [address] [place] [address] 85218 Home Care Provider Orthopedics 01/04/16 Wili Rudolph MD [address] [place] [address] 09321 Referring Orthopedics 01/04/16 Viviane Reyes MD [address] [place], [place] [phone] Primary Staff Physician Cardiology 07/29/18 Shmuel Ferguson MD [address] 968681 Rhinestone Setter Cardiology 09/08/20 Sabina Jefferson MD [address] 40910 Home Care Provider Orthopedics 07/23/23 Mando Giron APRN.EMISSION SPECIALIST [address] [place] [address] 63328 Referring Orthopedics 07/23/23 Marie Salvador, PT [address] [place] [address] Health Actuary Post Acute Care 07/24/23 Email Production Consultant Relationship Specialty Start Date End Date Jerry Arnold MD [address] [place] [address] PCP - General Family Medicine 08/30/17 Vignesh Diallo [facility] [address] [place] [address] Specialty Resident Care Technician Orthopedics 05/02/15 08/31/23 Wili Rudolph MD [address] [place] [address] 74796 Home Care Provider Orthopedics 05/16/15 Wili Rudolph MD [address] [place] [address] 91204 Referring Orthopedics 05/16/15 Wili Rudolph MD [address] [place] [address] 27463 Home Care Provider Orthopedics 01/04/16 Wili Rudolph MD [address] [place] [address] 13606 Referring Orthopedics 01/04/16 Viviane Reyes MD [address] [place] [address] 95938 Primary Staff Physician Cardiology 07/29/18 Shmuel Ferguson MD [address] [place] [address] 212751 Rhinestone Setter Cardiology 09/08/20 Sabina Jefferson MD [address] [place] [address] 55150 Home Care Provider Orthopedics 07/23/23 Mando Giron APRN.EMISSION SPECIALIST [address] [place] [address] 35005 Referring Orthopedics 07/23/23 Marie Salvador, PT [address] [place] [address] Health Actuary Post Acute Care 07/24/23 Email Production Consultant Relationship Specialty Start Date End Date Jerry Arnold MD [address] [place] [address] 99692 PCP - General Family Medicine 08/30/17 Vignesh Diallo [facility] [address] [place] [address] Specialty Resident Care Technician Orthopedics 05/02/15 08/31/23 Wili Rudolph MD [address] [place] [address] 31786 Home Care Provider Orthopedics 05/16/15 Wili Rudolph MD [address] [place] [address] 87835 Referring Orthopedics 05/16/15 Wili Rudolph MD [address] [place] [address] 78479 Home Care Provider Orthopedics 01/04/16 Wili Rudolph MD [address] [place] [address] 69255 Referring Orthopedics 01/04/16 Viviane Reyes MD [address] [place], [place] [address] Primary Staff Physician Cardiology 07/29/18 Shmuel Ferguson MD [address] [place] [address] [phone] Rhinestone Setter Cardiology 09/08/20 Sabina Jefferson MD [address] [place] [address] [phone] Home Care Provider Orthopedics 07/23/23 Mando Giron APRN.EMISSION SPECIALIST [address] [place] [address] 27745 Referring Orthopedics 07/23/23 Marie Salvador, PT [address] [place] [address] Health Actuary Post Acute Care 07/24/23 Email Production Consultant Relationship Specialty Start Date End Date Jerry Arnold MD [address] [place] [address] 23754 PCP - General Family Medicine 08/30/17 Vignesh Diallo [facility] [address] [place] [address] Specialty Resident Care Technician Orthopedics 05/02/15 08/31/23 Wili Rudolph MD [address] [address] Home Care Provider Orthopedics 05/16/15 Wili Rudolph MD [address] [place] [address] 94136 Referring Orthopedics 05/16/15 Wili Rudolph MD [address] [place] [address] 97051 Home Care Provider Orthopedics 01/04/16 Wili Rudolph MD [address] [place] [address] 58318 Referring Orthopedics 01/04/16 [place] [address] [place] [address] 44195 Primary Staff Physician Cardiology 07/29/18 [place] [address] [place] [address] 52192 Rhinestone Setter Cardiology 09/08/20 Sabina Jefferson MD [address] [address] Home Care Provider Orthopedics 07/23/23 Mando Giron APRN.EMISSION SPECIALIST [address] [place] [address] 70638 Referring Orthopedics 07/23/23 Email Production Consultant Relationship Specialty Start Date End Date Jerry Arnold MD [address] [place] [address] PCP - General Family Medicine 08/30/17 Vignesh Diallo, [facility] [address] [place] [address] Specialty Resident Care Technician Orthopedics 05/02/15 08/31/23 Wili Rudolph MD [address] [place] [address] 53950 Home Care Provider Orthopedics 05/16/15 Wili Rudolph MD [address] [place] [address] 22288 Referring Orthopedics 05/16/15 Wili Rudolph MD [address] [place] [address] 33265 Home Care Provider Orthopedics 01/04/16 Wili Rudolph MD [address] [place] [address] 88654 Referring Orthopedics 01/04/16 Viviane Reyes MD [address] [place] [address] Primary Staff Physician Cardiology 07/29/18 [place] [address] [place] [address] 97651 Rhinestone Setter Cardiology 09/08/20 Sabina Jefferson MD [address] [place] [address] 95118 Home Care Provider Orthopedics 07/23/23 Mando Giron APRN.EMISSION SPECIALIST [address] [place] [address] 53204 Referring Orthopedics 07/23/23 Email Production Consultant Relationship Specialty Start Date End Date Jerry Arnold MD [address] [place] [address] 35914 PCP - General Family Medicine 08/30/17 Vignesh Diallo [facility] [address] [place] [address] Specialty Resident Care Technician Orthopedics 05/02/15 08/31/23 Wili Rudolph MD [address] [place] [address] 44501 Home Care Provider Orthopedics 05/16/15 Wili Rudolph MD [address] [place] [address] 44816 Referring Orthopedics 05/16/15 Wili Rudolph MD [address] [place] [address] 28262 Home Care Provider Orthopedics 01/04/16 Wili Rudolph MD [address] [place] [address] 95770 Referring Orthopedics 01/04/16 [place] [address] [place] [address] [phone] Primary Staff Physician Cardiology 07/29/18 Shmuel Ferguson MD [address] [address] Rhinestone Setter Cardiology 09/08/20 Sabina Jefferson MD [address] [place] [address] 88267 Home Care Provider Orthopedics 07/23/23 Mando Giron APRN.EMISSION SPECIALIST [address] [place] [address] 13947 Referring Orthopedics 07/23/23 Marie Salvador, PT [address] [place] [address] Health Actuary Post Acute Care 07/24/23 08/11/23 Email Production Consultant Relationship Specialty Start Date End Date Jerry Arnold MD [address] [place] [address] PCP - General Family Medicine 08/30/17 Vignesh Diallo [facility] [address] [place] [address] Specialty Resident Care Technician Orthopedics 05/02/15 08/31/23 Wili Rudolph MD [address] [place] [address] 46206 Home Care Provider Orthopedics 05/16/15 Wili Rudolph MD [address] [place] [address] 45339 Referring Orthopedics 05/16/15 Wili Rudolph MD [address] [place] [address] 92114 Home Care Provider Orthopedics 01/04/16 Wili Rudolph MD [address] [place] [address] 65568 Referring Orthopedics 01/04/16 Viviane Reyes MD [address] [place], [place] [address] Primary Staff Physician Cardiology 07/29/18 Shmuel Ferguson MD [address] [place] [address] 40136 Rhinestone Setter Cardiology 09/08/20 Sabina Jefferson MD [address] [place] [address] 30821 Home Care Provider Orthopedics 07/23/23 Mando Giron APRN.EMISSION SPECIALIST [address] [place] [address] 60620 Referring Orthopedics 07/23/23 Email Production Consultant Relationship Specialty Start Date End Date Jerry Arnold MD [address] [place] [address] 45834 PCP - General Family Medicine 08/30/17 Vignesh Diallo [facility] [address] [place] [address] Specialty Resident Care Technician Orthopedics 05/02/15 08/31/23 Wili Rudolph MD [address] [place] [address] 75881 Home Care Provider Orthopedics 05/16/15 Wili Rudolph MD [address] [place] [address] 53574 Referring Orthopedics 05/16/15 Wili Rudolph MD [address] [place] [address] 04299 Home Care Provider Orthopedics 01/04/16 Wili Rudolph MD [address] [place] [address] 25016 Referring Orthopedics 01/04/16 Viviane Reyes MD [address] [place], [place] [address] Primary Staff Physician Cardiology 07/29/18 Shmuel Ferguson MD [address] [place] [address] 95270 Rhinestone Setter Cardiology 09/08/20 Sabina Jefferson MD [address] [place] [address] 87547 Home Care Provider Orthopedics 07/23/23 Mando Giron APRN.CNP [address] [place] [address] 70162 Referring Orthopedics 07/23/23 Email Production Consultant Relationship Specialty Start Date End Date Jerry Arnold MD [address] [place] [address] 66339 PCP - General Family Medicine 08/30/17 Vignesh Diallo, [facility] [address] [place] [address] Specialty Resident Care Technician Orthopedics 05/02/15 08/31/23 Wili Rudolph MD [address] [place] [address] 83466 Home Care Provider Orthopedics 05/16/15 Wili Rudolph MD [address] [place] [address] 57199 Referring Orthopedics 05/16/15 Wili Rudolph MD [address] [place] [address] 40553 Home Care Provider Orthopedics 01/04/16 Wili Rudolph MD [address] [place] [address] 84560 Referring Orthopedics 01/04/16 Viviane Reyes MD [address] [place] [address] Primary Staff Physician Cardiology 07/29/18 Shmuel Ferguson MD [address] [place] [address] [phone] Rhinestone Setter Cardiology 09/08/20 Sabina Jefferson MD [address] [place] [address] 57100 Home Care Provider Orthopedics 07/23/23 Mando Giron APRN.EMISSION SPECIALIST [address] [place] [address] 63573 Referring Orthopedics 07/23/23 Email Production Consultant Relationship Specialty Start Date End Date Jerry Arnold MD [address] [place] [address] 97689 PCP - General Family Medicine 08/30/17 Wili Rudolph MD [address] [place] [address] 02971 Home Care Provider Orthopedics 05/16/15 Wili Rudolph MD [address] [place] [address] 36860 Referring Orthopedics 05/16/15 Wili Rudolph MD [address] [place] [address] 16078 Home Care Provider Orthopedics 01/04/16 Wili Rudolph MD [address] [place] [address] 41231 Referring Orthopedics 01/04/16 Viviane Reyes MD [address] [place] [address] 08877 Primary Staff Physician Cardiology 07/29/18 Shmuel Ferguson MD [address] [place] [address] 03623 Rhinestone Setter Cardiology 09/08/20 Sabina Jefferson MD [address] [place] [address] 97481 Home Care Provider Orthopedics 07/23/23 Mando Giron APRN.EMISSION SPECIALIST [address] [place] [address] 86541 Referring Orthopedics 07/23/23 Email Production Consultant Relationship Specialty Start Date End Date Jerry Arnold MD [address] [place] [address] PCP - General Family Medicine 08/30/17 Wili Rudolph MD [address] [place] [address] 08968 Home Care Provider Orthopedics 05/16/15 Wili Rudolph MD [address] [place] [address] 96620 Referring Orthopedics 05/16/15 Wili Rudolph MD [address] [place] [address] 50226 Home Care Provider Orthopedics 01/04/16 Wili Rudolph MD [address] [place] [address] 31534 Referring Orthopedics 01/04/16 Viviane Reyes MD [address] [place] [address] 44195 Primary Staff Physician Cardiology 07/29/18 Shmuel Ferguson MD [address] 85669 Rhinestone Setter Cardiology 09/08/20 Sabina Jefferson MD [address] 9[address]66 Home Care Provider Orthopedics 07/23/23 Mando Giron APRN.EMISSION SPECIALIST [address] 48189 Referring Orthopedics 07/23/23 Email Production Consultant Relationship Specialty Start Date End Date Jerry Arnold MD [address] [place], [place] 240721 PCP - General Family Medicine 08/30/17 Wili Rudolph MD [address] [address]40 Home Care Provider Orthopedics 05/16/15 Wili Rudolph MD [address] 46545 Referring Orthopedics 05/16/15 Wili Rudolph MD [address] 41161 Home Care Provider Orthopedics 01/04/16 Wili Rudolph MD [address] [place] [address] 51157 Referring Orthopedics 01/04/16 Viviane Reyes MD [address] [place] [address] 44195 Primary Staff Physician Cardiology 07/29/18 Shmuel Ferguson MD [address] [address] Rhinestone Setter Cardiology 09/08/20 Sabina Jefferson MD [address] 02259 Home Care Provider Orthopedics 07/23/23 Mando Giron APRN.EMISSION SPECIALIST [address] [place] [address] 01476 Referring Orthopedics 07/23/23 Email Production Consultant Relationship Specialty Start Date End Date Jerry Arnold MD [facility] [place], [place] 752281 PCP - General Family Medicine 08/30/17 Wili Rudolph MD [address] [place] [address] 98805 Home Care Provider Orthopedics 05/16/15 Wili Rudolph MD [address] [place] [address] 97345 Referring Orthopedics 05/16/15 Wili Rudolph MD [address] [place] [address] 04453 Home Care Provider Orthopedics 01/04/16 Wili Rudolph MD [address] [place] [address] 95527 Referring Orthopedics 01/04/16 Viviane Reyes MD [address] [place] [address] [phone] Primary Staff Physician Cardiology 07/29/18 Shmuel Ferguson MD [address] [place] [address] 97877 Rhinestone Setter Cardiology 09/08/20 Sabina Jefferson MD [address] [place] [address] 32640 Home Care Provider Orthopedics 07/23/23 Mando Giron APRN.EMISSION SPECIALIST [address] [place] [address] 49302 Referring Orthopedics 07/23/23 Email Production Consultant Relationship Specialty Start Date End Date Jerry Arnold MD [address] [place] [address] 09863 PCP - General Family Medicine 08/30/17 Wili Rudolph MD [address] [place] [address] 53580 Home Care Provider Orthopedics 05/16/15 Wili Rudolph MD [address] [place] [address] 44863 Referring Orthopedics 05/16/15 Wili Rudolph MD [address] [place] [address] 56083 Home Care Provider Orthopedics 01/04/16 Wili Rudolph MD [address] [place] [address] 48385 Referring Orthopedics 01/04/16 [place] [address] [place] [address] [phone] Primary Staff Physician Cardiology 07/29/18 Shmuel Ferguson MD [address] 726031 Rhinestone Setter Cardiology 09/08/20 Sabina Jefferson MD [address] 81705 Home Care Provider Orthopedics 07/23/23 Mando Giron APRN.EMISSION SPECIALIST [address] [place] [address] 90969 Referring Orthopedics 07/23/23 Email Production Consultant Relationship Specialty Start Date End Date Jerry Arnold MD [address] [place], [place] 938951 PCP - General Family Medicine 08/30/17 Wili Rudolph MD [address] [place] [address] 83231 Home Care Provider Orthopedics 05/16/15 Wili Rudolph MD [address] 15858 Referring Orthopedics 05/16/15 Wili Rudolph MD [address] 82875 Home Care Provider Orthopedics 01/04/16 Wili Rudolph MD [address] 04455 Referring Orthopedics 01/04/16 Viviane Reyes MD [address] [place], [place] [address] Primary Staff Physician Cardiology 07/29/18 [place] [address] [place] [address] 62838 Rhinestone Setter Cardiology 09/08/20 Sabina Jefferson MD [address] [place] [address] [phone] Home Care Provider Orthopedics 07/23/23 Mando Giron APRN.[facility] [address] [place] [address] 37630 Referring Orthopedics 07/23/23 Email Production Consultant Relationship Specialty Start Date End Date Jerry Arnold MD [address] [place] [address] [phone] PCP - General Family Medicine 08/30/17 Wili Rudolph MD [address] [place] [address] 58478 Home Care Provider Orthopedics 05/16/15 Wili Rudolph MD [address] [place] [address] 71726 Referring Orthopedics 05/16/15 Wili Rudolph MD [address] [place] [address] 69577 Home Care Provider Orthopedics 01/04/16 Wili Rudolph MD [address] [place] [address] 24854 Referring Orthopedics 01/04/16 Viviane Reyes MD [address] [place], [place] 0[address] Primary Staff Physician Cardiology 07/29/18 Shmuel Ferguson MD [address] [place] [address] 01918 Rhinestone Setter Cardiology 09/08/20 Sabina Jefferson MD [address] [place] [address] 31075 Home Care Provider Orthopedics 07/23/23 Mando Giron APRN.EMISSION SPECIALIST [address] [place] [address] 54286 Referring Orthopedics 07/23/23 Email Production Consultant Relationship Specialty Start Date End Date Jerry Arnold MD [address] [place] [address] 92898 PCP - General Family Medicine 08/30/17 Wili Rudolph MD [address] [place] [address] 69605 Home Care Provider Orthopedics 05/16/15 Wili Rudolph MD [address] [place] [address] 02614 Referring Orthopedics 05/16/15 Wili Rudolph MD [address] [place] [address] 52962 Home Care Provider Orthopedics 01/04/16 Wili Rudolph MD [address] [place] [address] 15538 Referring Orthopedics 01/04/16 Viviane Reyes MD [address] [place], [place] 0[address] Primary Staff Physician Cardiology 07/29/18 Shmuel Ferguson MD [address] [place] [address] 71949 Rhinestone Setter Cardiology 09/08/20 Sabina Jefferson MD [address] [place] [address] 15419 Home Care Provider Orthopedics 07/23/23 Mando Giron APRN.CNP [address] [place] [address] 37915 Referring Orthopedics 07/23/23 Email Production Consultant Relationship Specialty Start Date End Date Jerry Arnold MD [address] [place] [address] 86854 PCP - General Family Medicine 08/30/17 Wili Rudolph MD [address] [place] [address] 94452 Home Care Provider Orthopedics 05/16/15 Wili Rudolph MD [address] [place] [address] 54365 Referring Orthopedics 05/16/15 Wili Rudolph MD [address] [place] [address] 49590 Home Care Provider Orthopedics 01/04/16 Wili Rudolph MD [address] [place] [address] 53844 Referring Orthopedics 01/04/16 Vivinae Reyes MD [address] [place], [place] 0[address] Primary Staff Physician Cardiology 07/29/18 Shmuel Ferguson MD [address] [place] [address] 19460 Rhinestone Setter Cardiology 09/08/20 Sabina Jefferson MD [address] [place] [address] 31378 Home Care Provider Orthopedics 07/23/23 Mando Giron APRN.CNP [address] [place] [address] 97587 Referring Orthopedics 07/23/23 Email Production Consultant Relationship Specialty Start Date End Date Jerry Arnold MD [address] [place] [address] 96985 PCP - General Family Medicine 08/30/17 Wili Rudolph MD [address] [place] [address] 67097 Home Care Provider Orthopedics 05/16/15 Wili Rudolph MD [address] [place] [address] 50401 Referring Orthopedics 05/16/15 Wlii Rudolph MD [address] [place] [address] 25439 Home Care Provider Orthopedics 01/04/16 Wili Rudolph MD [address] [place] [address] 27650 Referring Orthopedics 01/04/16 Viviane Reyes MD [address] [place], [place] 0[address] Primary Staff Physician Cardiology 07/29/18 Shmuel Ferguson MD [address] [place] [address] 74096 Rhinestone Setter Cardiology 09/08/20 Sabina Jefferson MD [address] [place] [address] 84877 Home Care Provider Orthopedics 07/23/23 Mando Giron APRN.CNP [address] [place] [address] 19017 Referring Orthopedics 07/23/23 Email Production Consultant Relationship Specialty Start Date End Date Zane Potter MD [address] [place] [address] 02091 PCP - General Internal Medicine 10/17/23 Wili Rudolph MD [address] [place] [address] 66227 Home Care Provider Orthopedics 05/16/15 Wili Rudolph MD [address] [place] [address] 13794 Referring Orthopedics 05/16/15 Wili Rudolph MD [address] [place] [address] 85180 Home Care Provider Orthopedics 01/04/16 Wili Rudolph MD [address] [place] [address] 53725 Referring Orthopedics 01/04/16 Viviane Reyes MD [address] [place], [place] 0[address] Primary Staff Physician Cardiology 07/29/18 Shmuel Ferguson MD [address] [place] [address] 00816 Rhinestone Setter Cardiology 09/08/20 Sabina Jefferson MD [address] [place] [address] [phone] Home Care Provider Orthopedics 07/23/23 Mando Giron APRN.EMISSION SPECIALIST [address] [place] [address] [phone] Referring Orthopedics 07/23/23 Email Production Consultant Relationship Specialty Start Date End Date Jerry Arnold MD [address] [place], [place] 044361 PCP - General Family Medicine 08/30/17 10/16/23 Zane Potter MD [address] [place] [address] PCP - General Internal Medicine 10/17/23 Wili Rudolph MD [address] 0[address]60 Home Care Provider Orthopedics 05/16/15 Wili Rudolph MD [address] 26594 Referring Orthopedics 05/16/15 Wili Rudolph MD [address] 52421 Home Care Provider Orthopedics 01/04/16 Wili Rudolph MD [address] 17713 Referring Orthopedics 01/04/16 [place] [address] [place], [place] [phone] Primary Staff Physician Cardiology 07/29/18 Shmuel Ferguson MD [address] 78530 Rhinestone Setter Cardiology 09/08/20 Sabina Jefferson MD [address] 96989 Home Care Provider Orthopedics 07/23/23 Mando Giron APRN.EMISSION SPECIALIST [address] [place] [address] 17498 Referring Orthopedics 07/23/23 Email Production Consultant Relationship Specialty Start Date End Date Zane Potter MD [address] [place] [address] 16578 PCP - General Internal Medicine 10/17/23 Wili Rudolph MD [address] [place] [address] 94436 Home Care Provider Orthopedics 05/16/15 Wili Rudolph MD [address] [place] [address] 72478 Referring Orthopedics 05/16/15 Wili Rudolph MD [address] [place] [address] 16807 Home Care Provider Orthopedics 01/04/16 Wlii Rudolph MD [address] [place] [address] 81038 Referring Orthopedics 01/04/16 Viviane Reyes MD [address] [place] [address] 04246 Primary Staff Physician Cardiology 07/29/18 Shmuel Ferguson MD [address] [place] [address] 61199 Rhinestone Setter Cardiology 09/08/20 Sabina Jefferson MD [address] [place] [address] 24172 Home Care Provider Orthopedics 07/23/23 Mando Giron APRN.CNP [address] [place] [address] 48077 Referring Orthopedics 07/23/23 Email Production Consultant Relationship Specialty Start Date End Date Zane Potter MD [address] [place] [address] 24207 PCP - General Internal Medicine 10/17/23 Wili Rudolph MD [address] [place] [address] 32257 Home Care Provider Orthopedics 05/16/15 Wili Rudolph MD [address] [place] [address] 15171 Referring Orthopedics 05/16/15 Wili Rudolph MD [address] [place] [address] 83545 Home Care Provider Orthopedics 01/04/16 Wili Rudolph MD [address] [place] [address] 10873 Referring Orthopedics 01/04/16 Viviane Reyes MD [address] [place] [address] 44195 Primary Staff Physician Cardiology 07/29/18 Shmuel Ferguson MD [address] [place] [address] 26161 Rhinestone Setter Cardiology 09/08/20 Sabina Jefferson MD [address] [place] [address] 38126 Home Care Provider Orthopedics 07/23/23 Mando Giron APRN.EMISSION SPECIALIST [address] [place] [address] 67586 Referring Orthopedics 07/23/23 Email Production Consultant Relationship Specialty Start Date End Date Zane Potter MD [address] [place] [address] 91904 PCP - General Internal Medicine 10/17/23 Wili Rudolph MD [address] [place] [address] 19788 Home Care Provider Orthopedics 05/16/15 Wili Rudolph MD [address] [place] [address] 69390 Referring Orthopedics 05/16/15 Wili Rudolph MD [address] [place] [address] 16457 Home Care Provider Orthopedics 01/04/16 Wili Rudolph MD [address] [place] [address] 80522 Referring Orthopedics 01/04/16 [place] [address] [place] [address] 44195 Primary Staff Physician Cardiology 07/29/18 Shmuel Ferguson MD [address] 95328 Rhinestone Setter Cardiology 09/08/20 Sabina Jefferson MD [address] [place] [address] 18579 Home Care Provider Orthopedics 07/23/23 Mando Giron APRN.EMISSION SPECIALIST [address] [place] [address] 08340 Referring Orthopedics 07/23/23 Email Production Consultant Relationship Specialty Start Date End Date Zane Potter MD [address] [place] [address] PCP - General Internal Medicine 10/17/23 Wili Rudolph MD [address] [place] [address] 05655 Home Care Provider Orthopedics 05/16/15 Wili Rudolph MD [address] [place] [address] 63079 Referring Orthopedics 05/16/15 Wili Rudolph MD [address] [place] [address] 16726 Home Care Provider Orthopedics 01/04/16 Wili Rudolph MD [address] [place] [address] 39647 Referring Orthopedics 01/04/16 Viviane Reyes MD [address] [place] [address] 23966 Primary Staff Physician Cardiology 07/29/18 Shmuel Ferguson MD [address] [place] [address] 14804 Rhinestone Setter Cardiology 09/08/20 Sabina Jefferson MD [address] [place] [address] 89296 Home Care Provider Orthopedics 07/23/23 Mando Giron APRN.EMISSION SPECIALIST [address] [place] [address] 71497 Referring Orthopedics 07/23/23 Email Production Consultant Relationship Specialty Start Date End Date Zane Potter MD [address] [place] [address] 12563 PCP - General Internal Medicine 10/17/23 Wili Rudolph MD [address] [place] [address] 02241 Home Care Provider Orthopedics 05/16/15 Wili Rudolph MD [address] [place] [address] 89615 Referring Orthopedics 05/16/15 Wili Rudolph MD [address] [place] [address] 77572 Home Care Provider Orthopedics 01/04/16 Wili Rudolph MD [address] [place] [address] 70475 Referring Orthopedics 01/04/16 Viviane Reyes MD [address] [place] [address] 01546 Primary Staff Physician Cardiology 07/29/18 Shmuel Ferguson MD [address] [place] [address] 94797 Rhinestone Setter Cardiology 09/08/20 Sabina Jefferson MD [address] [place] [address] 17163 Home Care Provider Orthopedics 07/23/23 Mando Giron APRN.EMISSION SPECIALIST [address] [place] [address] 65249 Referring Orthopedics 07/23/23 Email Production Consultant Relationship Specialty Start Date End Date Zane Potter MD [address] [place] [address] 98017 PCP - General Internal Medicine 10/17/23 Wili Rudolph MD [address] [place] [address] 52301 Home Care Provider Orthopedics 05/16/15 Wili Rudolph MD [address] [place] [address] 71877 Referring Orthopedics 05/16/15 Wili Rudolph MD [address] [place] [address] 66810 Home Care Provider Orthopedics 01/04/16 Wili Rudolph MD [address] [place] [address] 22078 Referring Orthopedics 01/04/16 Viviane Reyes MD [address] [place], [place] [address] Primary Staff Physician Cardiology 07/29/18 [place] [address] [place] [address] 22791 Rhinestone Setter Cardiology 09/08/20 Sabina Jefferson MD [address] [place] [address] 60677 Home Care Provider Orthopedics 07/23/23 Mando Giron APRN.EMISSION SPECIALIST [address] [place] [address] 09741 Referring Orthopedics 07/23/23 Email Production Consultant Relationship Specialty Start Date End Date Zane Potter MD [address] [place] [address] 74723 PCP - General Internal Medicine 10/17/23 Wili Rudolph MD [address] [place] [address] 76286 Home Care Provider Orthopedics 05/16/15 Wili Rudolph MD [address] [place] [address] 43970 Referring Orthopedics 05/16/15 Wili Rudolph MD [address] [place] [address] 56539 Home Care Provider Orthopedics 01/04/16 Wili Rudolph MD [address] [place] [address] 59888 Referring Orthopedics 01/04/16 Viviane Reyes MD [address] [place], [place] [address] Primary Staff Physician Cardiology 07/29/18 Shmuel Ferguson MD [address] [place] [address] 21602 Rhinestone Setter Cardiology 09/08/20 Sabina Jefferson MD [address] [place] [address] 71522 Home Care Provider Orthopedics 07/23/23 Mando Giron APRN.EMISSION SPECIALIST [address] [place] [address] 95805 Referring Orthopedics 07/23/23 Email Production Consultant Relationship Specialty Start Date End Date Zane Potter MD [address] [place] [address] 23131 PCP - General Internal Medicine 10/17/23 Wili Rudolph MD [address] [place] [address] 64876 Home Care Provider Orthopedics 05/16/15 Wili Rudolph MD [address] [place] [address] 43032 Referring Orthopedics 05/16/15 Wili Rudolph MD [address] [place] [address] 09437 Home Care Provider Orthopedics 01/04/16 Wili Rudolph MD [address] [place] [address] 67479 Referring Orthopedics 01/04/16 Viviane Reyes MD [address] [place], [place] [address] Primary Staff Physician Cardiology 07/29/18 Shmuel Ferguson MD [address] [place] [address] 13248 Rhinestone Setter Cardiology 09/08/20 Sabina Jefferson MD [address] [place] [address] 70489 Home Care Provider Orthopedics 07/23/23 Mando Giron APRN.CNP [address] [place] [address] 69089 Referring Orthopedics 07/23/23 Email Production Consultant Relationship Specialty Start Date End Date Jerry Arnold MD [address] [place] [address] [phone] PCP - General Family Medicine 08/30/17 10/16/23 Vignesh Diallo [facility] [address] [place] [address] Specialty Resident Care Technician Orthopedics 05/02/15 08/31/23 Wili Rudolph MD [address] [place] [address] 20008 Home Care Provider Orthopedics 05/16/15 Wili Rudolph MD [address] [place] [address] 87788 Referring Orthopedics 05/16/15 Wili Rudolph MD [address] [place] [address] 21031 Home Care Provider Orthopedics 01/04/16 Wili Rudolph MD [address] [place] [address] 49303 Referring Orthopedics 01/04/16 Viviane Reyes MD [address] [place], [place] [address] Primary Staff Physician Cardiology 07/29/18 Shmuel Ferguson MD [address] [place] [address] [phone] Rhinestone Setter Cardiology 09/08/20 Sabina Jefferson MD [address] [place] [address] 61962 Home Care Provider Orthopedics 07/23/23 Mando Giron APRN.EMISSION SPECIALIST [address] [place] [address] 23088 Referring Orthopedics 07/23/23 Marie Salvador, PT [address] [place] [address] Health Actuary Post Acute Care 07/24/23 08/11/23 Email Production Consultant Relationship Specialty Start Date End Date Zane Potter MD [address] [place] [address] PCP - General Internal Medicine 10/17/23 Wili Rudolph MD [address] [place] [address] 08683 Home Care Provider Orthopedics 05/16/15 Wili Rudolph MD [address] [place] [address] 40904 Referring Orthopedics 05/16/15 Wili Rudolph MD [address] [place] [address] 48822 Home Care Provider Orthopedics 01/04/16 Wili Rudolph MD [address] [place] [address] 20534 Referring Orthopedics 01/04/16 Viviane Reyes MD [address] [place] [address] 78413 Primary Staff Physician Cardiology 07/29/18 Shmuel Ferguson MD [address] [address] Rhinestone Setter Cardiology 09/08/20 Sabina Jefferson MD [address] [address] Home Care Provider Orthopedics 07/23/23 Mando Giron APRN.EMISSION SPECIALIST [address] [place] [address] 59990 Referring Orthopedics 07/23/23 Email Production Consultant Relationship Specialty Start Date End Date Zane Potter MD [address] [place] [address] PCP - General Internal Medicine 10/17/23 Wili Rudolph MD [address] [address] Home Care Provider Orthopedics 05/16/15 Wili Rudolph MD [address] 36034 Referring Orthopedics 05/16/15 Wili Rudolph MD [address] [address] Home Care Provider Orthopedics 01/04/16 Wili Rudolph MD [address] [place] [address] 84812 Referring Orthopedics 01/04/16 Viviane Reyes MD [address] [place] [address] 44195 Primary Staff Physician Cardiology 07/29/18 Shmuel Ferguson MD [address] [address] Rhinestone Setter Cardiology 09/08/20 Sabina Jefferson MD [address] [address] Home Care Provider Orthopedics 07/23/23 Mando Giron APRN.CNP [address] [place] [address] 00895 Referring Orthopedics 07/23/23 Email Production Consultant Relationship Specialty Start Date End Date Zane Potter MD [address] [place] [address] [phone] PCP - General Internal Medicine 10/17/23 Wili Rudolph MD [address] [place] [address] 82523 Home Care Provider Orthopedics 05/16/15 Wili Rudolph MD [address] [place] [address] 16209 Referring Orthopedics 05/16/15 Wili Rudolph MD [address] [place] [address] 42590 Home Care Provider Orthopedics 01/04/16 Wili Rudolph MD [address] [place] [address] 01658 Referring Orthopedics 01/04/16 Viviane Reyes MD [address] [place] [address] 44195 Primary Staff Physician Cardiology 07/29/18 Shmuel Ferguson MD [address] [address] Rhinestone Setter Cardiology 09/08/20 Sabina Jefferson MD [address] [place] [address] 96687 Home Care Provider Orthopedics 07/23/23 Mando Giron APRN.EMISSION SPECIALIST [address] [place] [address] 13484 Referring Orthopedics 07/23/23 Email Production Consultant Relationship Specialty Start Date End Date Jerry Arnold MD [facility] [place] [address] PCP - General Family Medicine 08/30/17 10/16/23 Vignesh Diallo, [facility] [address] [place] [address] Specialty Resident Care Technician Orthopedics 05/02/15 08/31/23 Wili Rudolph MD [address] [place] [address] 97908 Home Care Provider Orthopedics 05/16/15 Wili Rudolph MD [address] [place] [address] 47623 Referring Orthopedics 05/16/15 Wili Rudolph MD [address] [place] [address] 60538 Home Care Provider Orthopedics 01/04/16 Wili Rudolph MD [address] [place] [address] 36258 Referring Orthopedics 01/04/16 Viviane Reyes MD [address] [place], [place] [phone] Primary Staff Physician Cardiology 07/29/18 Shmuel Ferguson MD [address] 477791 Rhinestone Setter Cardiology 09/08/20 Marie Salvador, PT [address] [place] [address] Health Actuary Post Acute Care 02/15/21 03/04/23 Email Production Consultant Relationship Specialty Start Date End Date Jerry Arnold MD [address] [place], [place] [address] PCP - General Family Medicine 08/30/17 10/16/23 Vignesh Diallo [facility] [address] [place] [address] Specialty Resident Care Technician Orthopedics 05/02/15 08/31/23 Wili Rudolph MD [address] [place] [address] 98128 Home Care Provider Orthopedics 05/16/15 Wili Rudolph MD [address] [place] [address] 93978 Referring Orthopedics 05/16/15 Wili Rudolph MD [address] [address] Home Care Provider Orthopedics 01/04/16 Wili Rudolph MD [address] [address]95 Referring Orthopedics 01/04/16 Viviane Reyes MD [address] [place] [address] Primary Staff Physician Cardiology 07/29/18 Shmuel Ferguson MD [address] [address] Rhinestone Setter Cardiology 09/08/20 Marie Salvador, PT [address] [place], [place] [phone] Health Actuary Post Acute Care 02/15/21 03/04/23 Email Production Consultant Relationship Specialty Start Date End Date Jerry Arnold MD [address] [place], [place] [id number] PCP - General Family Medicine 08/30/17 10/16/23 Vignesh Diallo, [facility] [address] [place] [address] Specialty Resident Care Technician Orthopedics 05/02/15 08/31/23 Wili Rudolph MD [address] [place] [address] 97742 Home Care Provider Orthopedics 05/16/15 Wili Rudolph MD [address] [place] [address] 23210 Referring Orthopedics 05/16/15 Wili Rudolph MD [address] [place] [address] 07232 Home Care Provider Orthopedics 01/04/16 Wili Rudolph MD [address] [place] [address] 42491 Referring Orthopedics 01/04/16 Viviane Reyes MD [address] [place] [address] Primary Staff Physician Cardiology 07/29/18 Shmuel Ferguson MD [address] [address] Rhinestone Setter Cardiology 09/08/20 Marie Salvador, PT [address] [place] [address] Health Actuary Post Acute Care 02/15/21 03/04/23 Email Production Consultant Relationship Specialty Start Date End Date Jerry Arnold MD [address] [place] [address] PCP - General Family Medicine 08/30/17 Vignesh Diallo [facility] [address] [place] [address] Specialty Resident Care Technician Orthopedics 05/02/15 08/31/23 Wili Rudolph MD [address] [place] [address] 68144 Home Care Provider Orthopedics 05/16/15 Wili Rudolph MD [address] [place] [address] 34926 Referring Orthopedics 05/16/15 Wili Rudolph MD [address] [place] [address] 27947 Home Care Provider Orthopedics 01/04/16 Wili Rudolph MD [address] [place] [address] 35667 Referring Orthopedics 01/04/16 Viviane Reyes MD [address] [place], [place] [address] Primary Staff Physician Cardiology 07/29/18 Shmuel Ferguson MD [address] [place] [address] 34715 Rhinestone Setter Cardiology 09/08/20 Sabina Jefferson MD [address] [place] [address] 16489 Home Care Provider Orthopedics 07/23/23 Mando Giron APRN.[facility] [address] [place] [address] 75757 Referring Orthopedics 07/23/23 Email Production Consultant Relationship Specialty Start Date End Date Zane Potter MD [address] [place] [address] 74285 PCP - General Internal Medicine 10/17/23 Wili Rudolph MD [address] [place] [address] 86134 Home Care Provider Orthopedics 05/16/15 Wili Rudolph MD [address] [place] [address] 24826 Referring Orthopedics 05/16/15 Wili Rudolph MD [address] [place] [address] 05250 Home Care Provider Orthopedics 01/04/16 Wili Rudolph MD [address] [place] [address] 62946 Referring Orthopedics 01/04/16 Viviane Reyes MD [address] [place], [place] [address] Primary Staff Physician Cardiology 07/29/18 Shmuel Ferguson MD [address] [place] [address] 88050 Rhinestone Setter Cardiology 09/08/20 Sabina Jefferson MD [address] [place] [address] 05420 Home Care Provider Orthopedics 07/23/23 Mando Giron APRN.EMISSION SPECIALIST [address] [place] [address] 58846 Referring Orthopedics 07/23/23 Email Production Consultant Relationship Specialty Start Date End Date Zane Potter MD [address] [place] [address] 31050 PCP - General Internal Medicine 10/17/23 Wili Rudolph MD [address] [place] [address] 83555 Home Care Provider Orthopedics 05/16/15 Wili Rudolph MD [address] [place] [address] 42405 Referring Orthopedics 05/16/15 Wili Rudolph MD [address] [place] [address] 18242 Home Care Provider Orthopedics 01/04/16 Wili Rudolph MD [address] [place] [address] 08774 Referring Orthopedics 01/04/16 Viviane Reyes MD [address] [place], [place] [address] Primary Staff Physician Cardiology 07/29/18 Shmuel Ferguson MD [address] [place] [address] 53702 Rhinestone Setter Cardiology 09/08/20 Sabina Jefferson MD [address] [place] [address] 07564 Home Care Provider Orthopedics 07/23/23 Mando Giron APRN.CNP [address] [place] [address] 24398 Referring Orthopedics 07/23/23 Email Production Consultant Relationship Specialty Start Date End Date Zane Potter MD [address] [place] [address] 41519 PCP - General Internal Medicine 10/17/23 Wili Rudolph MD [address] [place] [address] 40223 Home Care Provider Orthopedics 05/16/15 Wili Rudolph MD [address] [place] [address] 36853 Referring Orthopedics 05/16/15 Wili Rudolph MD [address] [place] [address] 15698 Home Care Provider Orthopedics 01/04/16 Wili Rudolph MD [address] [place] [address] 33008 Referring Orthopedics 01/04/16 Viviane Reyes MD [address] [place], [place] [address] Primary Staff Physician Cardiology 07/29/18 Shmuel Ferguson MD [address] [place] [address] 69579 Rhinestone Setter Cardiology 09/08/20 Sabina Jefferson MD [address] [place] [address] 22671 Home Care Provider Orthopedics 07/23/23 Mando Giron APRN.CNP [address] [place] [address] 76048 Referring Orthopedics 07/23/23 Email Production Consultant Relationship Specialty Start Date End Date Zane Potter MD [address] [place] [address] 65919 PCP - General Internal Medicine 10/17/23 Wili Rudolph MD [address] [place] [address] 74877 Home Care Provider Orthopedics 05/16/15 Wili Rudolph MD [address] [place] [address] 38624 Referring Orthopedics 05/16/15 Wili Rudolph MD [address] [place] [address] 89518 Home Care Provider Orthopedics 01/04/16 Wili Rudolph MD [address] [place] [address] 86389 Referring Orthopedics 01/04/16 Viviane Reyes MD [address] [place], [place] [address] Primary Staff Physician Cardiology 07/29/18 Shmuel Ferguson MD [address] [place] [address] 28354 Rhinestone Setter Cardiology 09/08/20 Sabina Jefferson MD [address] [place] [address] [phone] Home Care Provider Orthopedics 07/23/23 Mando Giron APRN.EMISSION SPECIALIST [address] [place] [address] [phone] Referring Orthopedics 07/23/23 Email Production Consultant Relationship Specialty Start Date End Date Zane Potter MD [facility] [place] [address] PCP - General Internal Medicine 10/17/23 Wlii Rudolph MD [address] [place] [address] 88835 Home Care Provider Orthopedics 05/16/15 Wili Rudolph MD [address] [place] [address] 78172 Referring Orthopedics 05/16/15 Wili Rudolph MD [address] [place] [address] 25389 Home Care Provider Orthopedics 01/04/16 Wili Rudolph MD [address] [place] [address] 67435 Referring Orthopedics 01/04/16 Viviane Reyes MD [address] [place] [address] Primary Staff Physician Cardiology 07/29/18 Shmuel Ferguson MD [address] [place] [address] 66136 Rhinestone Setter Cardiology 09/08/20 Sabina Jefferson MD [address] [place] [address] 21434 Home Care Provider Orthopedics 07/23/23 Mando Giron APRN.CNP [address] [address] Referring Orthopedics 07/23/23 Inactive Administered Medications - up to 3 most recent administrations Administered Medications (un recognized section and content) Medication Order MAR Action Action Date Dose Rate Site abatacept 500 mg in NaCl 0.9% 100 mL (ORENCIA) 500 mg, INTRAVENOUS, Administer over 30 Minutes, ONCE, 1 dose, On 07/05/23 at 1400, exp 2330 07/05/23 (room temp) Administer with 0.2 micron filter. New Bag/Syringe/Bottle 07/05/2023 2:18 PM EST 500 mg INFORMATION SOURCE (unrecogn ized section and content) DATE CREATED AUTHOR 02/22/2024 [facility] DATE CREATED AUTHOR AUTHOR'S ORGANIZ ATMARTA 02/28/2024 [facility] FOR RECORDS PERTAINING TO PATIENTS WHO ARE OR HAVE BEEN ENROLLED IN A CHEMICAL DEPENDENCY/SUBSTANCEABUSE PROGRAM, SOME INFORMATION MAY BE OMITTED. This clinical summary was aggregated from multiple sources. Caution should be exercised in using it in the provision of clinical care. This summary normalizes information from multiple sources, and as a consequence, information in this document may materially change the coding, format and clinical context of patient data. In addition, data may be omitted in some cases. CLINICAL DECISIONS SHOULD BE BASED ON THE PRIMARY CLINICAL RECORDS. [employer] [facility]. provides no warranty or guarantee of the accuracy or completeness of information in this document.
[2024-03-08] MEDS: Amox/Clavulanate 875 MG Tablet PO (13:31)
== END 2024-03-08 13:32 | disposition home or self-care (01) ==
PROVIDERS: Emergency Provider Emergency Medicine; PCP Internal Medicine; Visit Provider Emergency Medicine
DX: K11.20 Sialoadenitis, unspecified (principal); K11.8 Other diseases of salivary glands; Z86.73 Personal history of transient ischemic attack (TIA), and cerebral infarction without residual deficits
CPT/HCPCS: 99282

== ENCOUNTER → 2024-03-30 | Outpatient (CLI) | payer MEDICARE, OTHER, SELFPAY ==
--- NOTE | 2024-03-30 14:06 | CT_ITS ---
INDICATION: Acute recurrent sialoadenitis EXAMINATION: CT NECK WITH CONTRAST - CT Soft Tissue Neck W/ Contrast Injection TECHNIQUE: Helically acquired images were obtained of the neck following IV contrast. The protocol utilizes one or more of the following dose reduction techniques: automated exposure control, adjustment of mA and/or kV according to patient size,and/or use of iterative reconstruction technique. IV Contrast dosage and agent: 100 cc of Isovue-300 RADIATION DOSAGE (If Supplied By Facility): CTDIvol = ( 9.02 ) mGy, DLP = ( 286.22 ) mGycm COMPARISON: CTA of the neck of 05/14/2018. FINDINGS: NASOPHARYNX: Unremarkable. SUPRAHYOID NECK: Unremarkable oropharynx, oral cavity, parapharyngeal space, and retropharyngeal space. INFRAHYOID NECK: Unremarkable larynx, hypopharynx, and supraglottis. THYROID: No focal lesions. SALIVARY GLANDS: Essentially unremarkable and symmetric. Significant artifacts from teeth fillings degrading the images. LYMPH NODES: No cervical or supraclavicular lymphadenopathy. VASCULAR STRUCTURES: Unremarkable. VISUALIZED PORTIONS OF THE ORBITS, PARANASAL SINUSES, MASTOID AIR CELLS AND SKULL BASE: Unremarkable. Bilateral cataract surgery. BONES: Degenerative changes of the spine. THORACIC INLET: Clear lung apices. CT/Soft Tissue Neck WITH Contrast IMPRESSION: Essentially unremarkable examination. Electronically Signed: Maldonado Wilson MD at 8:35 EST ,
[2024-03-30 14:49] LABS: CREATININE FINGERSTICK < 1.0 mg/dL (0.55-1.02); EGFR FINGERSTICK > 60.0000 mL/min (>60)
== END | disposition home or self-care (01) ==
PROVIDERS: PCP Internal Medicine; Referring Provider Otolaryngology; Visit Provider Otolaryngology
DX: K11.22 Acute recurrent sialoadenitis (principal)
CPT/HCPCS: 70491; Q9967